=== PATIENT | female | born 1960 ===

== ENCOUNTER 2020-01-01 07:48 | Outpatient (REF) | payer OTHER, SELFPAY | END 2020-01-01 07:49 | disposition home or self-care (01) | LOC: HO.LAB 07:48 | PROVIDERS: Visit Provider Internal Medicine | DX: Z20.828 Contact with and (suspected) exposure to other viral communicable diseases (principal) | CPT/HCPCS: C9803; U0003 ==

== ENCOUNTER 2020-03-01 08:35 | Outpatient (REF) | payer OTHER, SELFPAY ==
[2020-03-01 10:10] LABS: MANUAL DIFF FLAG NO
[2020-03-01 10:25] LABS: Basophils Absolute Auto 0.1 X10*3/uL (0.0-0.2); Basophils Percent Auto 0.5 % (0-2); Eosinophils Absolute Auto 0.3 X10*3/uL (0.0-0.4); Eosinophils Percent Auto 2.8 % (0-4); Hematocrit 30.7 % (37-47); Hemoglobin 8.8 g/dl (12.0-16.0); Imm Gran Abs Auto 0.06 X10*3/uL (0.00-0.03); Imm Gran Pct Auto 0.6 % (0.0-0.4); Lymphocytes Absolute Auto 1.6 X10*3/uL (1.2-4.9); Lymphocytes Percent Auto 15.2 % (20-40); Mean Corpuscular HGB Conc 28.7 g/dl (31.0-35.0); Mean Corpuscular Hemoglobin 22.9 pg (27.0-33.0); Mean Corpuscular Volume 79.9 fL (80-98); Monocytes Absolute Auto 0.8 X10*3/uL (0.1-1.2); Monocytes Percent Auto 7.8 % (2-11); Neutrophils Absolute Auto 7.7 X10*3/uL (2.0-8.3); Neutrophils Percent Auto 73.1 % (45-73); Platelet Count 394 X10*3/uL (160-400); Red Blood Count 3.84 X10*6/uL (4.20-5.50); Red Cell Distribution Width 20.9 % (11.0-16.0); White Blood Count 10.6 X10*3/uL (4.8-10.8)
[2020-03-01 10:55] LABS: Creatinine Urine 153.29 mg/dL; Microalbum/Creatinine Ratio Ur 7.8 ug/mg cr
[2020-03-01 11:05] LABS: Alanine Aminotransferase 11 U/L (0-31); Albumin Level 3.8 g/dL (3.5-5.0); Alkaline Phosphatase 76 U/L (39-117); Anion Gap 12 (12-20); Aspartate Amino Transferase 9 U/L (5-31); Bilirubin Total 0.4 mg/dL (0.0-1.0); Blood Urea Nitrogen 12 mg/dL (9-16); Calcium 8.9 mg/dL (8.4-10.2); Carbon Dioxide 28 mmol/L (22-29); Chloride 108 mmol/L (96-108); Cholesterol 181 mg/dL; Estimated Glomerular Filt Rate > 60; Glucose Fasting 98 mg/dL (60-99); HDL Cholesterol 58 mg/dL; Iron 18 mcg/dL (30-160); LDL Cholesterol Calculated 105 mg/dl; Percent Iron Saturation 6 % (15-50); Potassium 4.1 mmol/l (3.3-5.1); Sodium 144 mmol/L (135-145); Total Iron Binding Capacity 323 mcg/dL (228-428); Total Protein 6.5 g/dL (6.5-8.0); Triglycerides 90 mg/dL; Unsaturated Iron Binding 305 ug/dL
[2020-03-01 11:06] LABS: Vitamin B12 508 pg/mL (200-900)
[2020-03-01 11:30] LABS: Rheumatoid Factor 985.3 IU/mL (<15.0)
[2020-03-01 11:34] LABS: Erythrocyte Sedimentation Rate 44 MM/HR (0-20)
== END 2020-03-01 08:36 | disposition home or self-care (01) ==
LOC: HO.LAB 08:35
PROVIDERS: PCP Internal Medicine; Visit Provider Internal Medicine
DX: D50.9 Iron deficiency anemia, unspecified (principal); E11.9 Type 2 diabetes mellitus without complications; E78.5 Hyperlipidemia, unspecified; I10 Essential (primary) hypertension; M06.9 Rheumatoid arthritis, unspecified; M47.22 Other spondylosis with radiculopathy, cervical region; E53.8 Deficiency of other specified B group vitamins
CPT/HCPCS: 36415; 80053; 80061; 82043; 82607; 83540; 85025; 85652; 86431

== ENCOUNTER 2020-04-20 08:24 | Outpatient (REF) | payer OTHER, SELFPAY ==
--- NOTE | ~2020-04-20 | MM_ITS ---
EXAMINATION: MM SCREENING DIGITAL BREAST TOMOSYNTHESIS, BILATERAL CLINICAL INFORMATION: Screening. Asymptomatic. The lifetime risk of breast cancer based on the Tyrer-Cuzick Model is 11%. COMPARISON: Mammography: 04/15/2019, 04/09/2018, 03/21/2019 TECHNIQUE: Digital breast tomosynthesis is performed in both the craniocaudal and mediolateral oblique views along with computer-aided detection (CAD). Synthesized 2D images are generated from the tomosynthesis. FINDINGS: There are scattered areas of fibroglandular density (ACR BI-RADS breast composition Category b). There are no significant masses, abnormal calcifications, or other abnormalities. There are some fine dermal calcifications and/or deodorant artifact high bilateral axilla on MLO view. The skin contours are smooth. No significant changes. MM/MM tomosynthesis screening BI IMPRESSION: No mammographic evidence of malignancy. ASSESSMENT: BI-RADS 2: Benign RECOMMENDATION: Routine annual mammography screening. This patient's information was entered into a reminder system with a target due date for their next mammogram.
== END 2020-04-20 08:25 | disposition home or self-care (01) ==
LOC: HO.MAMMO 08:24
PROVIDERS: PCP Internal Medicine; Visit Provider Internal Medicine
DX: Z12.31 Encounter for screening mammogram for malignant neoplasm of breast (principal)
CPT/HCPCS: 77063; 77067

== ENCOUNTER 2020-05-17 11:58 | Outpatient (REF) | payer OTHER, SELFPAY | END 2020-05-17 11:59 | disposition home or self-care (01) | LOC: HO.LAB 11:58 | PROVIDERS: Visit Provider Internal Medicine | DX: Z20.822 Contact with and (suspected) exposure to COVID-19 (principal) | CPT/HCPCS: 36415; C9803; U0003; U0005 ==

== ENCOUNTER 2020-05-28 07:43 | Outpatient (REF) | payer OTHER, SELFPAY ==
[2020-05-28 08:09] LABS: MANUAL DIFF FLAG NO
[2020-05-28 08:25] LABS: Basophils Percent Auto 0.2 % (0-2); Eosinophils Percent Auto 0.2 % (0-4); Hematocrit 30.6 % (37-47); Hemoglobin 8.7 g/dl (12.0-16.0); Imm Gran Abs Auto 0.28 X10*3/uL (0.00-0.03); Imm Gran Pct Auto 2.5 % (0.0-0.4); Lymphocytes Absolute Auto 1.9 X10*3/uL (1.2-4.9); Mean Corpuscular HGB Conc 28.4 g/dl (31.0-35.0); Mean Corpuscular Volume 77.3 fL (80-98); Mean Platelet Volume 9.2 fL (9.4-12.3); Monocytes Absolute Auto 0.9 X10*3/uL (0.1-1.2); Monocytes Percent Auto 7.6 % (2-11); Neutrophils Absolute Auto 8.2 X10*3/uL (2.0-8.3); Neutrophils Percent Auto 72.5 % (45-73); Platelet Count 630 X10*3/uL (160-400); Red Blood Count 3.96 X10*6/uL (4.20-5.50); Red Cell Distribution Width 22.5 % (11.0-16.0); White Blood Count 11.3 X10*3/uL (4.8-10.8)
[2020-05-28 08:39] LABS: Alanine Aminotransferase 13 U/L (0-31); Albumin Level 3.6 g/dL (3.5-5.0); Alkaline Phosphatase 54 U/L (39-117); Anion Gap 12 (12-20); Aspartate Amino Transferase 10 U/L (5-31); Bilirubin Total 0.6 mg/dL (0.0-1.0); Blood Urea Nitrogen 12 mg/dL (9-16); Calcium 8.9 mg/dL (8.4-10.2); Carbon Dioxide 30 mmol/L (22-29); Chloride 106 mmol/L (96-108); Cholesterol 215 mg/dL; Estimated Glomerular Filt Rate > 60; Glucose Fasting 110 mg/dL (60-99); HDL Cholesterol 58 mg/dL; Iron 18 mcg/dL (30-160); LDL Cholesterol Calculated 124 mg/dl; Percent Iron Saturation 7 % (15-50); Potassium 3.7 mmol/L (3.3-5.1); Sodium 144 mmol/L (135-145); Total Iron Binding Capacity 248 mcg/dL (228-428); Total Protein 6.4 g/dL (6.5-8.0); Triglycerides 168 mg/dL; Unsaturated Iron Binding 230 ug/dL
[2020-05-28 08:58] LABS: TSH reflex Free T4 1.03 uIU/mL (0.32-4.0); Vitamin D 25-OH Total 24.1 ng/mL (>30)
[2020-05-28 09:09] LABS: Erythrocyte Sedimentation Rate 26 MM/HR (0-20)
[2020-05-28 09:24] LABS: Glucose Urine UA NEG (NEG); Leukocyte Esterase Urine NEG (NEG); Nitrite Urine NEG (NEG); Specific Gravity - Urine 1.025 (1.005-1.025); Urine Blood NEG (NEG); Urine Ketones 5 MG/DL (NEG); Urine Protein TRACE MG/DL (NEG-TRACE)
[2020-05-28 09:27] LABS: Vitamin B12 726 pg/mL (200-900)
[2020-05-28 09:29] LABS: Appearance Urine HAZY; Color Urine YELLOW
[2020-05-28 10:22] LABS: Creatinine Urine 401.47 mg/dL; Microalbum/Creatinine Ratio Ur 8.4 ug/mg cr
== END 2020-05-28 07:44 | disposition home or self-care (01) ==
LOC: HO.LAB 07:43
PROVIDERS: PCP Internal Medicine; Visit Provider Internal Medicine
DX: E11.40 Type 2 diabetes mellitus with diabetic neuropathy, unspecified (principal); I10 Essential (primary) hypertension; E55.9 Vitamin D deficiency, unspecified; E53.8 Deficiency of other specified B group vitamins; G62.9 Polyneuropathy, unspecified; E78.00 Pure hypercholesterolemia, unspecified; E66.9 Obesity, unspecified; D50.9 Iron deficiency anemia, unspecified; M05.79 Rheumatoid arthritis with rheumatoid factor of multiple sites without organ or systems involvement; D50.8 Other iron deficiency anemias
CPT/HCPCS: 36415; 80053; 80061; 81003; 82043; 82306; 82607; 82746; 83540; 84443; 85025; 85652

== ENCOUNTER → 2020-08-03 12:33 | Outpatient (BNV) | payer OTHER, SELFPAY | PROVIDERS: PCP Internal Medicine; Referring Provider Internal Medicine; Visit Provider Internal Medicine Medical Oncology | DX: D50.9 Iron deficiency anemia, unspecified (principal) | CPT/HCPCS: 99203; 99213; 99214 ==

== ENCOUNTER 2020-10-06 07:39 | Outpatient (REF) | payer OTHER, SELFPAY ==
[2020-10-06 07:55] LABS: MANUAL DIFF FLAG NO
[2020-10-06 08:00] LABS: Basophils Percent Auto 0.3 % (0-2); Eosinophils Percent Auto 0.3 % (0-4); Hematocrit 30.1 % (37-47); Hemoglobin 8.6 g/dl (12.0-16.0); Imm Gran Abs Auto 0.14 X10*3/uL (0.00-0.03); Imm Gran Pct Auto 1.4 % (0.0-0.4); Lymphocytes Absolute Auto 1.2 X10*3/uL (1.2-4.9); Lymphocytes Percent Auto 11.8 % (20-40); Mean Corpuscular HGB Conc 28.6 g/dl (31.0-35.0); Mean Corpuscular Hemoglobin 21.3 pg (27.0-33.0); Mean Corpuscular Volume 74.5 fL (80-98); Mean Platelet Volume 9.3 fL (9.4-12.3); Monocytes Absolute Auto 0.5 X10*3/uL (0.1-1.2); Monocytes Percent Auto 4.6 % (2-11); NRBC Pct Auto 0.2 /100WBC (0.0-0.2); Neutrophils Percent Auto 81.6 % (45-73); Platelet Count 420 X10*3/uL (160-400); Red Blood Count 4.04 X10*6/uL (4.20-5.50); Red Cell Distribution Width 20.8 % (11.0-16.0); White Blood Count 9.8 X10*3/uL (4.8-10.8)
[2020-10-06 08:05] LABS: INTERNATIONAL NORM RATIO 0.9 (0.9-1.1); Prothrombin Time 10.2 SEC (9.9-13.0)
[2020-10-06 08:07] LABS: Partial Thromboplastin Time 29.9 SEC (24.1-38.0)
[2020-10-06 08:41] LABS: Erythrocyte Sedimentation Rate 38 MM/HR (0-20)
[2020-10-06 09:08] LABS: Alanine Aminotransferase 9 U/L (0-31); Albumin Level 3.8 g/dL (3.5-5.0); Alkaline Phosphatase 79 U/L (39-117); Anion Gap 13 (12-20); Aspartate Amino Transferase 9 U/L (5-31); Bilirubin Total 0.6 mg/dL (0.0-1.0); Blood Urea Nitrogen 8 mg/dL (9-16); Calcium 9.3 mg/dL (8.4-10.2); Carbon Dioxide 28 mmol/L (22-29); Chloride 106 mmol/L (96-108); Estimated Glomerular Filt Rate > 60; Glucose Random 141 mg/dL (60-115); Potassium 4.3 mmol/L (3.3-5.1); Sodium 143 mmol/L (135-145); Total Protein 6.8 g/dL (6.5-8.0)
[2020-10-12 21:21] LABS: Cryoglobulin, Qual Negative (Negative)
== END 2020-10-06 07:40 | disposition home or self-care (01) ==
LOC: HO.LAB 07:39
PROVIDERS: PCP Internal Medicine; Visit Provider Internal Medicine
DX: R23.3 Spontaneous ecchymoses (principal)
CPT/HCPCS: 36415; 80053; 82595; 85025; 85610; 85652; 85730

== ENCOUNTER 2020-10-13 14:38 | Outpatient (REF) | payer OTHER, SELFPAY | END 2020-10-13 14:39 | disposition home or self-care (01) | LOC: HO.LAB 14:38 | PROVIDERS: Visit Provider Internal Medicine | DX: Z20.822 Contact with and (suspected) exposure to COVID-19 (principal) | CPT/HCPCS: C9803; U0003; U0005 ==

== ENCOUNTER 2020-10-20 10:30 | Emergency (ER) | payer OTHER, SELFPAY ==
--- NOTE | ~2020-10-20 | CT_ITS ---
EXAMINATION: CT HEAD WITHOUT CONTRAST CLINICAL INFORMATION: Right hand numbness COMPARISON: None TECHNIQUE: Contiguous axial imaging was performed from the skull base to vertex without intravenous administration of contrast. This CT examination was performed using dose optimization techniques as appropriate, variously including the following: *Automated exposure control *Adjustment of mA and/or kV according to patient size (this includes techniques or standardized protocols for targeted exams where dose is matched to indication/reason for exam; i.e. extremities or head) *Use of iterative reconstruction technique DLP: 641 mGy-cm FINDINGS: There is no evidence of acute intracranial hemorrhage or territorial infarction. No abnormal mass effect or midline shift is seen. Jernigan to white matter differentiation is well preserved. No extra-axial fluid collections are identified. The ventricles are normal in size. There is no abnormal attenuation within the brain parenchyma. The osseous structures and soft tissues are normal. The mastoid air cells and visualized portions of the paranasal sinuses are well aerated. CT/CT head/brain wo con IMPRESSION: No acute intracranial process seen.
[2020-10-20 10:36] VITALS: BP 173/95; PULSE 101; RESP 18; TEMP 37.3; O2SAT 99; BMI 32.1
--- NOTE | 2020-10-20 11:07 | ED.EXTPRO ---
HPI - Extremity Problem General Chief complaint: Extremity Problem Stated complaint: rt arm numbness Time Seen by Provider: 10/20/20 11:07 Source: patient Mode of arrival: ambulatory Limitations: no limitations History of Present Illness HPI Narrative: 6-year-old female with a past medical history of cervical spondylosis with radiculopathy and severe rheumatoid arthritis with right hand wrist fusion presents for right hand numbness and weakness and right arm pain that started at 4:30 a.m. this morning Patient reports her middle finger, 3rd finger, and some, are numb. Reports she has pain in her right arm especially under her right armpit. No neck pain. No nausea, no blurry vision, no weakness, no gait disturbance. She did not take her blood pressure meds today. Reports her blood pressure has been running high this week, SBP's 170's at home. Complaint: extremity pain Onset (ago): hour(s) (7) Pain Consistency: constant Location: right Severity scale (1-10): 6 Relieving factors: nothing Exacerbating factors: nothing Associated symptoms: denies other symptoms Related Data Home Medications Medication Instructions Recorded Confirmed albuterol sulfate 2.5 mg INHALATION Q4-6H PRN 11/27/19 10/07/20 folic acid 1 mg tablet 1 mg PO DAILY 11/27/19 10/07/20 methotrexate sodium 2.5 mg tablet 2.5 mg PO QWEEK 11/27/19 10/07/20 omeprazole 20 mg capsule,delayed 20 mg PO DAILY 11/27/19 10/07/20 release prednisone 5 mg tablet 5 mg PO DAILY 11/27/19 10/07/20 upadacitinib 15 mg tablet,extended 15 mg PO DAILY 11/27/19 10/07/20 release 24 hr (Rinvoq) Previous Rx's Medication Instructions Recorded ergocalciferol (vitamin D2) 1,250 1,250 mcg PO QWEEK 30 Days #5 cap 01/06/20 mcg (50,000 unit) capsule lisinopril 2.5 mg tablet 2.5 mg PO DAILY 90 Days #90 tab 03/02/20 blood sugar diagnostic (FreeStyle 1 strip MISCELLANEOUS TID #100 04/28/20 Test) strip albuterol sulfate 90 mcg/actuation 2 puff INHALATION Q6H PRN #8.5 g 06/15/20 aerosol inhaler (ProAir HFA) ezetimibe 10 mg tablet 10 mg PO DAILY #30 tab 07/14/20 hydrochlorothiazide 25 mg tablet 25 mg PO DAILY #30 tab 07/14/20 rosuvastatin 20 mg tablet 20 mg PO DAILY #30 tab 08/14/20 gabapentin 300 mg capsule 300 mg PO BEDTIME 30 Days #30 cap 08/18/20 cyanocobalamin (vitamin B-12) 1,000 mcg IM Q4W #3 vial 08/31/20 1,000 mcg/mL injection solution metformin 1,000 mg tablet 1,000 mg PO BID #60 tab 09/02/20 oxycodone 30 mg tablet 30 mg PO Q6H PRN 28 Days #112 tab 09/24/20 zolpidem 10 mg tablet 10 mg PO BEDTIME PRN 30 Days #30 09/30/20 tab prednisone 20 mg tablet 40 mg PO DAILY 5 Days #10 tab 10/20/20 Allergies Allergy/AdvReac Type Severity Reaction Status Date / Time IVP DYE Allergy Unknown unknown Verified 10/07/20 09:04 Review of Systems Constitutional: Constitutional: Denies chills, Denies fever(s), Reports headache(s) (mild) and Denies weakness Eyes: Eyes: Denies blurry vision, Denies diplopia, Denies loss of peripheral vision, Denies loss of vision and Denies other visual disturbances ENT: Denies vertigo, Denies dizziness, Denies otalgia, Reports headache(s) (mild), Reports mouth pain, Denies neck pain, Reports sinus pain and Denies sore throat Cardiovascular: Cardiovascular: Denies chest pain, Denies leg edema, Denies palpitations and Denies dyspnea Respiratory: Respiratory: Denies chest congestion, Denies cough and Denies dyspnea Gastrointestinal: Gastrointestinal: Denies abdominal pain, Denies hematochezia, Denies constipation, Denies diarrhea and Denies vomiting Musculoskeletal: Musculoskeletal: Denies neck pain and Reports numbness Comments: Right arm pain, pain in right axilla Integumentary/Breasts: Skin/Breast: Reports system reviewed and no additional complaints, except as docu Neurologic: Denies Abnormal speech present, Denies confusion, Denies vertigo, Denies dizziness, Reports headache(s) (mild), Denies focal weakness, Denies loss of vision, Reports numbness, Reports Sensory deficit (Neuro) and Denies weakness Psychiatric: Psychiatric: Denies anxiety, Denies confusion and Denies depression Endocrine: Endocrine: Denies palpitations PMFSH Past Medical History Medical History Abnormal bruising Anxiety Asthma Cervical spondylosis with radiculopathy Diabetes mellitus GERD (gastroesophageal reflux disease) Hyperlipidemia Hypertension, essential, benign Insomnia Iron deficiency anemia, unspecified Neuropathy Obesity (BMI 30-39.9) Rheumatoid arthritis Ureterolithiasis Varicose veins of bilateral lower extremities with pain Vitamin B12 deficiency Vitamin D deficiency Surgical History History of arthroplasty of left ankle History of arthroplasty of right ankle History of arthroplasty of right knee (~2008) History of surgery on left wrist History of surgery on right wrist S/P VANESSA-BSO (total abdominal hysterectomy and bilateral salpingo-oophorectomy) Family History Family History Father Chronic mental illness Mother Diabetes Stroke Hypertension Social History Social History Housing: Apartment Alcohol intake: former Patient Tobacco Use Status: Former Tobacco user Quit Date: 2014 Second Hand Smoke Exposure: Yes Use of substances other than those prescribed or required for medical reasons: No Advance Directives: No Advance Directives Information Provided: Yes service: No Current occupational status: disabled Physical Exam Vital Signs: Vital Signs: Last Vital Signs Temp 99.2 F 10/20/20 10:36 Pulse 85 10/20/20 13:47 Resp 18 10/20/20 12:54 BP 184/89 H 10/20/20 13:47 Pulse Ox 95 10/20/20 12:54 Body Mass Index 32.1 Const: General: no acute distress, alert and awake; No confusion Nutritional Appearance: obese centrally obese Orientation/consciousness: patient oriented x3 and No confusion Limitations: no limitations HENMT: Ears: hearing grossly normal bilaterally General nose exam: Normal external nose present Face and sinus: Yes normal facial exam Mouth: Normal oral and palatal mucosa present Teeth and gingiva: edentulous Throat: Yes posterior oropharynx normal Eyes: Pupils: Equal, round and reactive pupils present EOM: EOMs intact bilaterally and No Nystagmus present Neck: Neck: Yes normal visual inspection, Yes full ROM, Yes no meningeal signs, Yes trachea midline and Yes supple Resp: Effort & Inspection: normal respiratory effort Auscultation: clear to auscultation bilaterally, no crackles, no rales, no rhonchi and no wheezes Cardio: Rate: regular rate Rhythm: regular rhythm Heart sounds: S1 normal heart sound present and S2 normal heart sound present : General: Yes no CVA tenderness Back/Spine/Pelvis: Back: no CVA tenderness Cervical Spine: normal cervical lordosis, cervical ROM normal, cervical muscular tenderness (left side) and No Cervical spine tenderness Thoracic/Lumbar Spine: thoracic and lumbar spine normal to inspection, No thoracic spinal tenderness and No lumbar spinal tenderness Skin: General skin exam: no rashes or lesions noted Neuro: Other: Patient has reduced sample distributor strength and right hands, has reduced sensation to light touch on the palmar aspect of right hand General: patient oriented x3, no meningeal signs and No confusion Cranial nerves: Yes CN's II-XII intact bilaterally, Yes Facial sensation intact/muscles of mastication intact, Yes Equal, round and reactive pupils present, Yes Bilaterally intact EOM present, Yes Normal facial strength present, Yes Midline tongue present, Yes Ability to bilaterally rotate head present, Yes Ability to bilaterally elevate shoulders present and No Nystagmus present Cognition (Neuro): normal cognition Speech: No Abnormal speech present Gait exam (Neuro): Normal gait present Motor exam (neuro): Pronator motor function not present Sensory Exam: Sensory deficit (Neuro) Deep tendon reflexes (DTR's): Right patellar reflex intensity grade: 1+ and Left patellar reflex intensity grade: 1+ Coordination: [id number] test normal Romberg Test: Negative Psych: Appearance: grossly normal Mental Status: mental status grossly normal Speech and movement: Normal speech and movement present Affect: normal affect Attitude: cooperative Thought process: Normal thought process present Course Course Course Narrative: 60-year-old female presents for right arm pain and right hand numbness. Patient has an elevated blood pressure of 173/93, she has not taken her blood pressure medication today. On exam, patient has reduced sample distributor strength in her right hand, right hand is deformed from surgeries due to her rheumatoid arthritis, patient is tender when I palpate under right armpit. No cervical spine tenderness, full range of motion of neck. Patient is otherwise neurologically intact, her gait is at her baseline. Head CT is negative for stroke. Ordered MRI of neck, was told by radiologist that this is not able to be completed today. Discussed with Dr. Schroeder, neurology, if she needed CT angiogram of head or neck. He did not think this was a stroke as she was presenting with pain as well as numbness and no other focal deficits. Discussed with patient she should follow-up with her PCP for outpatient MRI of her neck. Counseled patient that we would increase her prednisone and sent her home on ketorolac Discharge Plan Discharge Clinical Impression: Cervical radicular pain Hypertension Qualifiers: Hypertension type: primary hypertension Qualified Code(s): I10 - Essential (primary) hypertension Patient Disposition: Home, Self-Care Instructions: Cervical Radiculopathy (ED) Additional Instructions: Please fill your prescription for prednisone and take the additional 40 mg of prednisone starting tomorrow. Please call your primary care provider for a follow-up appointment I would like you to be seen next week. You need an outpatient MRI of your neck. Your blood pressure was high in the emergency room today. Please follow-up with your primary care provider as they might want to increase your dose of your high blood pressure medication. Please return to the emergency room if you have headaches, weakness, blurry vision, worseing pain, or any other new or concerning symptoms. Prescriptions: New prednisone 20 mg tablet 40 mg PO DAILY 5 Days Qty: 10 RF: 0 No Action ergocalciferol (vitamin D2) 1,250 mcg (50,000 unit) capsule 1,250 mcg PO QWEEK 30 Days Qty: 5 RF: 12 blood sugar diagnostic [FreeStyle Test] Strip 1 strip miscellaneous TID Qty: 100 RF: 3 albuterol sulfate [ProAir HFA] 90 mcg/actuation HFA aerosol inhaler 2 puff inhalation Q6H PRN (Reason: bronchospasm) Qty: 8.5 RF: 2 hydrochlorothiazide 25 mg tablet 25 mg PO DAILY Qty: 30 RF: 3 ezetimibe 10 mg tablet 10 mg PO DAILY Qty: 30 RF: 3 rosuvastatin 20 mg tablet 20 mg PO DAILY Qty: 30 RF: 2 gabapentin 300 mg capsule 300 mg PO BEDTIME 30 Days Qty: 30 RF: 0 cyanocobalamin (vitamin B-12) 1,000 mcg/mL solution 1,000 mcg IM Q4W Qty: 3 RF: 2 metformin 1,000 mg tablet 1,000 mg PO BID Qty: 60 RF: 2 oxycodone 30 mg tablet 30 mg PO Q6H PRN (Reason: pain) 28 Days Qty: 112 RF: 0 zolpidem 10 mg tablet 10 mg PO BEDTIME PRN (Reason: insomnia) 30 Days Qty: 30 RF: 1 albuterol sulfate 2.5 mg /3 mL (0.083 %) solution for nebulization 2.5 mg inhalation Q4-6H PRN (Reason: Wheezing) RF: 0 prednisone 5 mg tablet 5 mg PO DAILY RF: 0 folic acid 1 mg tablet 1 mg PO DAILY RF: 0 omeprazole 20 mg capsule,delayed release(DR/EC) 20 mg PO DAILY RF: 0 Rinvoq 15 mg tablet extended release 24 hr 15 mg PO DAILY RF: 0 methotrexate sodium 2.5 mg tablet 2.5 mg PO QWEEK RF: 0 lisinopril 2.5 mg tablet 2.5 mg PO DAILY 90 Days Qty: 90 RF: 3
[2020-10-20 12:54] VITALS: BP 190/84; PULSE 88; RESP 18; O2SAT 95
[2020-10-20] MEDS: Ketorolac Tromethamine 15 MG/ML VIAL IM (13:15)
[2020-10-20] MEDS: lisinopriL 2.5 MG TABLET PO (13:15)
[2020-10-20] MEDS: predniSONE 20 MG TABLET 60 MG PO (13:15)
[2020-10-20 13:47] VITALS: BP 184/89; PULSE 85
== END 2020-10-20 13:54 | disposition home or self-care (01) ==
PROVIDERS: Emergency Provider Emergency Medicine; PCP Internal Medicine
DX: M54.2 Cervicalgia (principal); I10 Essential (primary) hypertension; Z79.899 Other long term (current) drug therapy; Z87.891 Personal history of nicotine dependence
CPT/HCPCS: 70450; 96372; 99284; 99285; J1885

== ENCOUNTER → 2020-10-26 12:31 | Outpatient (BNVA) | payer OTHER, SELFPAY | PROVIDERS: PCP Internal Medicine; Referring Provider Internal Medicine; Visit Provider Internal Medicine | DX: E11.8 Type 2 diabetes mellitus with unspecified complications (principal); I10 Essential (primary) hypertension; R00.2 Palpitations | CPT/HCPCS: 93005; 99202 ==

== ENCOUNTER → 2020-11-17 08:07 | Outpatient (BNVA) | payer OTHER, SELFPAY | PROVIDERS: Referring Provider Internal Medicine; Visit Provider Physician Assistant ==

== ENCOUNTER 2020-11-25 07:59 | Outpatient (REF) | payer OTHER, SELFPAY | END 2020-11-25 08:00 | disposition home or self-care (01) | LOC: HO.MDS 07:59 | PROVIDERS: PCP Internal Medicine; Visit Provider Internal Medicine Medical Oncology | DX: D50.9 Iron deficiency anemia, unspecified (principal) | CPT/HCPCS: 96365; 96366; J1200; J1750; Q0163 ==

== ENCOUNTER 2020-11-29 07:17 | Outpatient (REF) | payer OTHER, SELFPAY ==
--- NOTE | ~2020-11-29 | XR_ITS ---
EXAMINATION: XR ANKLE, RIGHT CLINICAL INFORMATION: XR ankle, right. COMPARISON: Right foot radiographs dated 08/24/2010. TECHNIQUE: AP, lateral, and mortise views of the right ankle. FINDINGS: No acute fracture or dislocation. Talar orthopedic screws. No hardware fracture. No perihardware lucency to suggest loosening or infection. Joint space narrowing with marginal osteophytes at the subtalar joints as well as at the talonavicular and cuneonavicular joints. Dystrophic ossification along the plantar surface of the foot, increased when compared to the prior radiographs. Plantar and dorsal calcaneal enthesophytes. Atherosclerotic calcifications. XR/XR ankle RT min 3V IMPRESSION: No acute fracture or dislocation. Talar ORIF without evidence of hardware complication. Degenerative arthritis within the subtalar joints and midfoot, slightly progressed when compared to the prior examination. Dystrophic ossification along the plantar surface of the foot has increased.
== END 2020-11-29 07:18 | disposition home or self-care (01) ==
LOC: HO.HOSX 07:17
PROVIDERS: Visit Provider Physician Assistant
DX: R20.0 Anesthesia of skin (principal); R20.2 Paresthesia of skin; M25.579 Pain in unspecified ankle and joints of unspecified foot; E11.8 Type 2 diabetes mellitus with unspecified complications
CPT/HCPCS: 73610; 99202

== ENCOUNTER → 2020-12-01 08:22 | Outpatient (REF) | payer OTHER, SELFPAY ==
--- NOTE | 2020-12-01 08:26 | HM_ITS ---
Conclusion: 1. Patient was monitored for total period of 3 days 2. Baseline rhythm is normal sinus rhythm with average heart rate of 92 beats per minute 3. Frequent sinus tachycardia noted, 30.4% of time heart rate about 100 beats per minute 4. No bradycardia or pauses noted 5. Total of 17,355 PACs noted accounting for total burden of 4.35% a cardiac for frequent PACs 6. Six episode of supraventricular runs, longest 4 beats 7. No patient reported events MTDD
--- NOTE | 2020-12-01 08:26 | CA_ITS ---
Transthoracic Echocardiogram Patient (Last, First, Middle): Isela Frausto M Gender: Female Date of : 1960 Age: 60 Procedure Date: 12/01/2020 Procedure Type: Transthoracic Echocardiogram Location: OP Height: 157.48 cm Weight: 79.38 kg BSA: 1.81 m2 Heart Rate: bpm BP: 155 / 70 mmHg Rn Pacu: YR/CP Referring MD: Quentin Ray MD Symptoms: R00.2 - Palpitations Study Quality: Good ECG Rhythm: Sinus Conclusions: - The left ventricular systolic function is normal. The calculated ejection fraction is 61% by biplane method. - The basal inferior segment is hypokinetic. - There is mild calcification of the aortic valve. - There is mild mitral valve regurgitation. Findings Left Ventricle Normal left ventricular cavity size. There is normal left ventricular wall thickness. The left ventricular systolic function is normal. The calculated ejection fraction is 61% by biplane method. Diastolic function is normal for age. Wall Motion Rest Echo Findings The basal inferior segment is hypokinetic. Right Ventricle Normal right ventricular cavity size and systolic function. Atria Both atria are normal in size. Aortic Valve There is a normal trileaflet aortic valve. There is mild calcification of the aortic valve. There is no aortic valve stenosis. There is no aortic valve regurgitation. Mitral Valve The mitral valve appears normal. There is mild mitral valve regurgitation. There is no mitral valve stenosis. Pulmonic Valve The pulmonic valve was not well visualized. Tricuspid Valve Normal tricuspid valve structure. There is trace tricuspid valve regurgitation. The pulmonary artery systolic pressure is normal. Great Vessels The aortic annulus, sinuses of valsalva, and asc aorta are normal in size. Venous The inferior vena cava is normal in size and collapses greater than 50% with inspiration. Pericardium/Pleural There is no evidence of pericardial effusion. Prior Study Comparison Changes noted compared to prior study dated: 04/20/2015. See comments on wall motion. Measurements 2D Linear Measurements IVSd: 0.91 0.6-0.9/0.6-1.0 cm LVIDd: 4.82 3.9-5.3/4.2-5.9 cm LVIDd Index: 2.66 2.4-3.2/2.2-3.1 cm/m2 LVIDs: 3.05 2.0-3.6 cm LVPWd: 0.90 0.7-1.1 cm Ao Root: 3.30 2.1-3.5 cm LA Diam: 3.60 2.7-3.8/3.0-4.0 cm LAIDs Index: 1.99 1.5-2.3 cm/m2 LV Mass: 186.63 67-162/88-224 g LV Mass Index: 103.11 43-95/49-115 g/m2 LVOT Diam: 2.00 3.0+(-)1.3 cm 2D Systolic Function EF 4C: 60.10 >55% EF 2C: 63.70 >55% EF BiP: 61.00 >55% Mitral Valve MV Pk E: 1.12 MV PK A: 1.36 MV Decel Time: 280.00 E/A: 0.80 E'Lateral: 8.81 E'Medial: 8.27 E/E' Med: 13.50 E/E' Lat: 12.70 PHT: 82.00 MVA PHT: 2.68 Decel Dimmit: 4.00 Aortic Valve AoV Pk Brian: 2.08 AoV Mn Brian: 1.32 AoV VTI: 0.42 AoV Pk Grad: 17.00 Aov Mn Grad: 8.00 LUCIA Cont.VTI: 1.75 LVOT LVOT Pk Brian: 0.99 LVOT Mn Brian: 0.65 LVOT VTI: 0.24 LVOT Pk Grad: 4.00 LVOT Mn Grad: 2.00 LVOT Diam: 2.00 LVOT Area: 3.14 Diastolic Function MV Pk E: 1.12 MV Pk A: 1.36 E/A: 0.80 E'Medial: 8.27 E/E' Med: 13.50 E' Laterial: 8.81 E/E' Lat: 12.70 Right Ventricle TAPSE (mm): 2.20 TVS' Brian: 13.40 Tricuspid Valve TR Pk Brian: 1.70 TR Pk Grad: 12.00 RA Press: 3.00 RVSP: 15.00 Great Vessels Aorta Ao Root-2D: 3.30 2.0-3.7 cm Ao Asc: 3.50 2.1-3.4 cm Ao Arch: 2.80 Updated in Other Vendor System with Status of Final Quentin Ray MD electronically signed on 12/01/2020 12:58:20 PM with status of Final
== END ==
LOC: HO.CARD 08:22
PROVIDERS: Visit Provider Internal Medicine
DX: R00.2 Palpitations (principal)
CPT/HCPCS: 93242; 93306

== ENCOUNTER 2020-12-27 08:28 | Outpatient (REF) | payer OTHER, SELFPAY ==
[2020-12-27 08:43] LABS: MANUAL DIFF FLAG NO
[2020-12-27 09:09] LABS: Basophils Percent Auto 0.2 % (0-2); Eosinophils Absolute Auto 0.1 X10*3/uL (0.0-0.4); Eosinophils Percent Auto 0.9 % (0-4); Hematocrit 35.6 % (37.0-47.0); Hemoglobin 10.8 g/dl (12.0-16.0); Imm Gran Abs Auto 0.29 X10*3/uL (0.00-0.03); Imm Gran Pct Auto 2.3 % (0.0-0.4); Lymphocytes Absolute Auto 2.1 X10*3/uL (1.2-4.9); Lymphocytes Percent Auto 16.2 % (20-40); Mean Corpuscular HGB Conc 30.3 g/dl (31.0-35.0); Mean Corpuscular Hemoglobin 24.8 pg (27.0-33.0); Mean Corpuscular Volume 81.7 fL (80.0-98.0); Mean Platelet Volume 10.1 fL (9.4-12.3); Monocytes Absolute Auto 0.8 X10*3/uL (0.1-1.2); Monocytes Percent Auto 6.5 % (2-11); Neutrophils Absolute Auto 9.39 x10*3/uL (2.0-8.3); Neutrophils Percent Auto 73.9 % (45-73); Platelet Count 353 X10*3/uL (160-400); Red Blood Count 4.36 X10*6/uL (4.20-5.50); Red Cell Distribution Width 28.9 % (11.0-16.0); White Blood Count 12.7 X10*3/uL (4.8-10.8)
[2020-12-27 09:19] LABS: Estimated Average Glucose 114 mg/dL; Hemoglobin A1c % 5.6 %
[2020-12-27 09:40] LABS: Alanine Aminotransferase 9 U/L (0-31); Albumin Level 3.8 g/dL (3.5-5.0); Alkaline Phosphatase 58 U/L (39-117); Anion Gap 12 (12-20); Aspartate Amino Transferase 9 U/L (5-31); Bilirubin Total 0.4 mg/dL (0.0-1.0); Blood Urea Nitrogen 15 mg/dL (9-16); Calcium 9.4 mg/dL (8.4-10.2); Carbon Dioxide 30 mmol/L (22-29); Chloride 109 mmol/L (96-108); Cholesterol 219 mg/dL; Estimated Glomerular Filt Rate > 60; Glucose Fasting 98 mg/dL (60-99); HDL Cholesterol 50 mg/dL; LDL Cholesterol Calculated 133 mg/dl; Potassium 3.8 mmol/L (3.3-5.1); Sodium 147 mmol/L (135-145); Total Protein 6.3 g/dL (6.5-8.0); Triglycerides 184 mg/dL
[2020-12-27 09:59] LABS: Rheumatoid Factor 1062.7 IU/mL (<15.0)
[2020-12-27 10:12] LABS: Erythrocyte Sedimentation Rate 18 MM/HR (0-20)
[2020-12-27 10:28] LABS: Folate 7.5 ng/mL (> or = 4.0); Vitamin B12 696 pg/mL (200-900)
[2020-12-27 10:49] LABS: Appearance Urine HAZY; Color Urine YELLOW; Glucose Urine UA NEG (NEG); Leukocyte Esterase Urine 1+ (NEG); Nitrite Urine NEG (NEG); Specific Gravity - Urine 1.025 (1.005-1.025); UACC Culture Trigger YES; Urine Blood NEG (NEG); Urine Ketones 5 MG/DL (NEG); Urine Protein TRACE MG/DL (NEG-TRACE)
[2020-12-27 11:07] LABS: Squamous Epithelial Cell Urine 3+ /LPF
[2020-12-27 11:08] LABS: Bacteria Urine 1+ /LPF; Calcium Oxalate Crystals Urine 1+ /LPF; Mucus Urine 1+ /LPF; RBC Urine 0 /HPF (0)
[2020-12-27 11:21] LABS: Creatinine Urine 297.18 mg/dL; Microalbum/Creatinine Ratio Ur 11.4 ug/mg cr
== END 2020-12-27 08:29 | disposition home or self-care (01) ==
LOC: HO.LAB 08:28
PROVIDERS: PCP Internal Medicine; Visit Provider Internal Medicine
DX: E78.00 Pure hypercholesterolemia, unspecified (principal); E53.8 Deficiency of other specified B group vitamins; E11.9 Type 2 diabetes mellitus without complications; M05.79 Rheumatoid arthritis with rheumatoid factor of multiple sites without organ or systems involvement; D50.8 Other iron deficiency anemias; I10 Essential (primary) hypertension
CPT/HCPCS: 36415; 80053; 80061; 81001; 82043; 82607; 82746; 83036; 84443; 85025; 85652; 86431; 87086

== ENCOUNTER → 2021-01-06 08:55 | Outpatient (REF) | payer OTHER, SELFPAY ==
--- NOTE | ~2021-01-06 | NM_ITS ---
Myocardial perfusion study Indication: Atherosclerotic heart disease to evaluate for myocardial ischemia Technique: The patient was brought in for a Lexiscan perfusion study on 01/06/2021. Patient performed low-level exercise and was injected 0.4 mg of Lexiscan intravenously. Within a minute of injection, 25 mCi of sestamibi was given intravenously. Images were obtained using the SPECT gamma camera interlaced with the gating device. Images were obtained in supine position. Resting perfusion study was performed on 01/10/2021. Patient was administered 25 mCi of sestamibi intravenously at rest. Images were then obtained in supine position. Images obtained with and without CT attenuation. Total DLP 129 mGy-cm. Images were processed with the software and compared side to side in short axis, horizontal long axis and vertical long axis views. Findings: The stress perfusion study showed nonattenuated images show mildly reduced uptake in the distal lateral, apex as well as moderately reduced uptake in the inferoapical wall of the LV myocardium. Remainder of the LV myocardium is normally perfused. Attenuation corrected images show mildly reduced uptake apex of the LV myocardium. The gated study shows normal LV systolic function with calculated LVEF of 58%. LV cavity is mildly dilated size. The gated study shows normal systolic wall thickening and contraction of segments. Resting study shows attenuation corrected images show normal uptake of radiotracer in all segments of LV myocardium. Gating at rest reveals normal systolic wall motion with ejection fraction at 70%. The findings are consistent with reversible defect on attenuation corrected imaging the apex suggestive of ischemia.. NM/NM cardiolite stress test Impression: 1. Myocardial perfusion imaging study shows apical ischemia 2. Gated LVEF is 58% with stress and 70% with rest 3. Transient ischemic dilatation present EKG is nondiagnostic for ischemia
--- NOTE | 2021-01-06 08:58 | CA_ITS ---
Acquisition Time: 2021-01-06 09:55:21 Total Exercise Time: 00:02:00 Test Indications: CAD Medications: SEE CHART Protocol: LEXISCAN Max HR: 155 BPM 96% of Pred: 160 BPM Max BP: 200/090 mmHG Max Work Load: 1.6 METS Pharmacological stress test with Lexiscan injection, while walking on treadmill, without anginal symptoms, without arrythmia, with hypertensive response to walking and injection with max BP 200/90, without EKG changes meeting criteria for ischemia. In recovery she was treated with Aminophylline 75mg IVP to reverse Lexiscan. BP improved to 160/88, asymptomatic. Nuclear images pending. Test reviewed with Dr Ray. Referred By: Quentin Ray Overread By: LEELEE MORRIS
== END ==
LOC: HO.CARD 08:55
PROVIDERS: PCP Internal Medicine; Visit Provider Internal Medicine
DX: I25.10 Atherosclerotic heart disease of native coronary artery without angina pectoris (principal)
CPT/HCPCS: 78452; 93017; A9500; J0280; J2785

== ENCOUNTER → 2021-01-12 14:38 | Outpatient (BNVA) | payer OTHER, SELFPAY | PROVIDERS: PCP Internal Medicine; Referring Provider Internal Medicine; Visit Provider Nurse Practitioner Family | DX: I10 Essential (primary) hypertension (principal); E78.00 Pure hypercholesterolemia, unspecified; E11.8 Type 2 diabetes mellitus with unspecified complications; R00.2 Palpitations; R94.39 Abnormal result of other cardiovascular function study | CPT/HCPCS: 99212 ==

== ENCOUNTER → 2021-02-01 07:55 | Outpatient (BNVA) | payer OTHER, SELFPAY | PROVIDERS: PCP Internal Medicine; Referring Provider Internal Medicine; Visit Provider Internal Medicine | DX: I25.10 Atherosclerotic heart disease of native coronary artery without angina pectoris (principal); I10 Essential (primary) hypertension; I49.8 Other specified cardiac arrhythmias; E11.8 Type 2 diabetes mellitus with unspecified complications | CPT/HCPCS: 99212 ==

== ENCOUNTER 2021-02-14 10:35 | Outpatient (REF) | payer OTHER, SELFPAY | END 2021-02-14 10:36 | disposition home or self-care (01) | LOC: HO.LAB 10:35 | PROVIDERS: Visit Provider Internal Medicine | DX: Z20.822 Contact with and (suspected) exposure to COVID-19 (principal) | CPT/HCPCS: C9803; U0003; U0005 ==

== ENCOUNTER → 2021-03-16 09:29 | Outpatient (BNVA) | payer OTHER, SELFPAY | PROVIDERS: PCP Internal Medicine; Visit Provider Surgery Vascular Surgery | DX: I73.9 Peripheral vascular disease, unspecified (principal) | CPT/HCPCS: 99212 ==

== ENCOUNTER 2021-04-05 12:56 | Outpatient (REF) | payer OTHER, SELFPAY ==
--- NOTE | ~2021-04-05 | XR_ITS ---
EXAMINATION: XR HIP, RIGHT CLINICAL INFORMATION: Right hip pain COMPARISON: 06/03/2013 TECHNIQUE: Two views of the right hip. FINDINGS: Moderate narrowing of the weightbearing joint space. Mild subchondral sclerosis in the acetabular roof. Mild osteophytes. No erosive changes. XR/XR hip RT min 2V IMPRESSION: Mild osteoarthritis right hip, slightly progressed compared to 06/03/2013.
--- NOTE | ~2021-04-05 | US_ITS ---
EXAMINATION: US NON-INVASIVE ASSESSMENT OF THE ARTERIES OF BOTH LOWER EXTREMITIES Interventional Radiologist: Sergio Gray M.D., F.S.I.R., F.A.C.R. CLINICAL INFORMATION: This is a 61-year-old female with history of hypertension, hyperlipidemia, diabetes. Peripheral arterial disease. Comparison: Comparison is made to a previous study dated 10/15/2018 TECHNIQUE: Segmental ankle pulse volume recording, pressure measurement at the ankle and ankle brachial indices were obtained of the lower extremity arterial system bilaterally. In addition, bilateral lower extremity duplex ultrasound was performed with velocity measurements and waveform analysis in the common femoral arteries, profunda femoris arteries, proximal mid and distal superficial femoral arteries, popliteal arteries and tibial vessels. This study was performed at rest only. FINDINGS: a) AT REST: 1. The ankle-brachial indices are: Right 1.17. Previously, 1.05 and left 1.07. Previously, 0.92. >0.97-1.25 = normal - no significant arterial disease. 0.75-0.96 = mild peripheral arterial disease. 0.5-0.74 = moderate peripheral arterial disease. <0.50 = severe peripheral arterial disease. 2. Segmental pressure at ankle: Within normal limits bilaterally. 3. PVR waveform at ankle: Minimally blunted bilaterally. 4. Duplex exam. Velocities in cm/sec and phasicity as well as the presence of plaque are reported below. RIGHT LEG: Scattered plaque is seen. Multiphasic flow is present throughout with the exception of the tibial vessels that showed monophasic flow. Common Femoral: 202 cm/s and triphasic. Previously, 129. Proximal SFA: 120 cm/s and triphasic. Previously, 116. Mid SFA: 92 cm/s and triphasic. Previously, 110. Distal SFA: 97 cm/s and monophasic. Previously, 84. Popliteal: 66 cm/s and monophasic. Previously, 61. Tibial: 255 cm/s and monophasic. Previously, 104. There appears to be severe disease in the posterior tibial artery. LEFT LEG: Scattered plaque is seen. Multiphasic flow present throughout. Common Femoral: 133 cm/s and triphasic. Previously, 120. Proximal SFA: 141 cm/s and triphasic. Previously, 101. Mid SFA: 145 cm/s and monophasic. Previously, 98. Distal SFA: 80 cm/s and monophasic. Previously, 99. Popliteal: 79 cm/s and monophasic. Previously, 94. Tibial: 49 cm/s and monophasic. Previously, 33. US/US arterial duplex LE BI IMPRESSION: 1. The ankle-brachial indices are within normal limits bilaterally. 2. There appears to be hemodynamically significant severe disease in the right posterior tibial artery. This appears worse when compared to the previous examination. 3. There are decreased velocities bilaterally in the calves without focal high-grade stenosis with the exception of the right posterior tibial artery.
== END 2021-04-05 12:57 | disposition home or self-care (01) ==
LOC: HO.US 12:56
PROVIDERS: PCP Internal Medicine; Visit Provider Surgery Vascular Surgery
DX: I73.9 Peripheral vascular disease, unspecified (principal)
CPT/HCPCS: 93923; 93925

== ENCOUNTER → 2021-04-14 12:47 | Outpatient (BNVA) | payer OTHER, SELFPAY | PROVIDERS: PCP Internal Medicine; Visit Provider Surgery Vascular Surgery | DX: I73.9 Peripheral vascular disease, unspecified (principal) | CPT/HCPCS: 99212 ==

== ENCOUNTER 2021-04-30 09:37 | Outpatient (REF) | payer OTHER, SELFPAY ==
[2021-04-30 10:21] LABS: MANUAL DIFF FLAG NO
[2021-04-30 11:01] LABS: Appearance Urine HAZY; Color Urine YELLOW; Glucose Urine UA NEG (NEG); Leukocyte Esterase Urine NEG (NEG); Nitrite Urine NEG (NEG); PH 5.5 (5.0-8.0); Specific Gravity - Urine >= 1.030 (1.005-1.025); Urine Blood NEG (NEG); Urine Ketones 5 MG/DL (NEG); Urine Protein TRACE MG/DL (NEG-TRACE)
[2021-04-30 11:20] LABS: Basophils Absolute Auto 0.1 X10*3/uL (0.0-0.2); Basophils Percent Auto 0.4 % (0-2); Eosinophils Absolute Auto 0.2 X10*3/uL (0.0-0.4); Eosinophils Percent Auto 1.9 % (0-4); Hemoglobin 12.7 g/dl (12.0-16.0); Imm Gran Abs Auto 0.18 X10*3/uL (0.00-0.03); Imm Gran Pct Auto 1.5 % (0.0-0.4); Lymphocytes Absolute Auto 1.9 X10*3/uL (1.2-4.9); Lymphocytes Percent Auto 15.3 % (20-40); Mean Corpuscular HGB Conc 31.8 g/dl (31.0-35.0); Mean Corpuscular Hemoglobin 29.1 pg (27.0-33.0); Mean Corpuscular Volume 91.7 fL (80.0-98.0); Mean Platelet Volume 10.8 fL (9.4-12.3); Monocytes Absolute Auto 0.9 X10*3/uL (0.1-1.2); Monocytes Percent Auto 7.4 % (2-11); Neutrophils Percent Auto 73.5 % (45-73); Platelet Count 324 X10*3/uL (160-400); Red Blood Count 4.36 X10*6/uL (4.20-5.50); Red Cell Distribution Width 14.6 % (11.0-16.0); White Blood Count 12.2 X10*3/uL (4.8-10.8)
[2021-04-30 11:25] LABS: Estimated Average Glucose 177 mg/dL; Hemoglobin A1c % 7.8 %
[2021-04-30 11:39] LABS: Microalbum/Creatinine Ratio Ur 12.4 ug/mg cr
[2021-04-30 12:00] LABS: Alanine Aminotransferase 6 U/L (0-31); Albumin Level 3.9 g/dL (3.5-5.0); Alkaline Phosphatase 86 U/L (39-117); Anion Gap 13 (12-20); Aspartate Amino Transferase 10 U/L (5-31); Blood Urea Nitrogen 13 mg/dL (9-16); Calcium 9.6 mg/dL (8.4-10.2); Carbon Dioxide 29 mmol/L (22-29); Chloride 105 mmol/L (96-108); Cholesterol 207 mg/dL; Estimated Glomerular Filt Rate > 60; Glucose Fasting 116 mg/dL (60-99); HDL Cholesterol 50 mg/dL; LDL Cholesterol Calculated 132 mg/dl; Sodium 143 mmol/L (135-145); Total Protein 6.9 g/dL (6.5-8.0); Triglycerides 127 mg/dL
[2021-04-30 12:21] LABS: TSH reflex Free T4 0.65 uIU/mL (0.32-4.0); Vitamin D 25-OH Total 32.6 ng/mL (>30)
[2021-05-02 09:02] LABS: Folate 12.7 ng/mL (> or = 4.0); Vitamin B12 765 pg/mL (200-900)
== END 2021-04-30 09:38 | disposition home or self-care (01) ==
LOC: HO.XRAY 09:37
PROVIDERS: PCP Internal Medicine; Visit Provider Internal Medicine
DX: M25.551 Pain in right hip (principal); E78.00 Pure hypercholesterolemia, unspecified; E11.9 Type 2 diabetes mellitus without complications; I10 Essential (primary) hypertension; E55.9 Vitamin D deficiency, unspecified; E53.8 Deficiency of other specified B group vitamins
CPT/HCPCS: 36415; 73502; 80053; 80061; 81003; 82043; 82306; 82607; 82746; 83036; 84443; 85025

== ENCOUNTER → 2021-05-17 08:24 | Outpatient (BNVA) | payer OTHER, SELFPAY | PROVIDERS: PCP Internal Medicine; Referring Provider Internal Medicine; Visit Provider Internal Medicine | DX: I25.10 Atherosclerotic heart disease of native coronary artery without angina pectoris (principal); I10 Essential (primary) hypertension; I49.8 Other specified cardiac arrhythmias; E11.8 Type 2 diabetes mellitus with unspecified complications | CPT/HCPCS: 99212 ==

== ENCOUNTER 2021-05-23 07:29 | Outpatient (REF) | payer OTHER, SELFPAY ==
--- NOTE | ~2021-05-23 | MM_ITS ---
EXAMINATION: MM SCREENING DIGITAL BREAST TOMOSYNTHESIS, BILATERAL CLINICAL INFORMATION: Screening. Asymptomatic. The lifetime risk of breast cancer based on the Tyrer-Cuzick Model is 5%. COMPARISON: Mammography: 04/20/2020, 04/15/2019, 04/09/2018 TECHNIQUE: Digital breast tomosynthesis is performed in both the craniocaudal and mediolateral oblique views along with computer-aided detection (CAD). Synthesized 2D images are generated from the tomosynthesis. FINDINGS: There are scattered areas of fibroglandular density (ACR BI-RADS breast composition Category b). There are no significant masses, abnormal calcifications, or other abnormalities. Breast tissue composition borders on predominantly fatty. Parenchymal pattern is similar to prior exams. The axilla and skin contours are unremarkable. MM/MM tomosynthesis screening BI IMPRESSION: No mammographic evidence of malignancy. ASSESSMENT: BI-RADS 1: Negative RECOMMENDATION: Routine annual mammography screening. This patient's information was entered into a reminder system with a target due date for their next mammogram.
== END 2021-05-23 07:30 | disposition home or self-care (01) ==
LOC: HO.MAMMO 07:29
PROVIDERS: Visit Provider Internal Medicine
DX: Z12.31 Encounter for screening mammogram for malignant neoplasm of breast (principal)
CPT/HCPCS: 77063; 77067

== ENCOUNTER 2021-06-01 09:10 | Outpatient (REF) | payer OTHER, SELFPAY ==
--- NOTE | ~2021-06-01 | XR_ITS ---
EXAMINATION: XR HAND, RIGHT CLINICAL INFORMATION: Pain right hand. COMPARISON: None TECHNIQUE: PA, lateral, and oblique views of the right hand. FINDINGS: There is severe osteopenia with subluxations at the 2nd through 5th metacarpophalangeal joints. Severe loss of 2nd MCP joint space is seen. There is a dorsal curved metallic plate extending from the distal radius to the 2nd metatarsals, stabilized with screws likely for wrist fusion. There is absorption of ulnar styloid process. There is no acute fracture seen. Degenerative arthritic changes are seen in the 1st carpometacarpal joint, PIP and DIP joints. XR/XR hand RT min 3V IMPRESSION: No acute fracture seen. There is diffuse osteopenia. Stabilized fused wrist with a dorsal plate and screws from the distal radius to the 3rd dorsal metacarpal. There is no visible acute fracture or dislocation. Especially no abnormality seen involving the 3rd digit except for metacarpophalangeal dislocations from 3rd to 5th digits.
== END 2021-06-01 09:11 | disposition home or self-care (01) ==
LOC: HO.HOSX 09:10
PROVIDERS: PCP Internal Medicine; Visit Provider Orthopaedic Surgery
DX: R20.0 Anesthesia of skin (principal); G56.01 Carpal tunnel syndrome, right upper limb
CPT/HCPCS: 73130; 99202

== ENCOUNTER 2021-06-27 05:51 | Day surgery (SDC) | payer OTHER, SELFPAY ==
[2021-06-21 13:35] VITALS: BMI 34.7
--- NOTE | 2021-06-24 08:06 | HO.ANESPROP2 ---
Documented by User: Kezia Patricia NP 06/24/21 08:17 HPI - Anesthesia Eval Consult details Narrative: 61yo F for Right Flexor Tendon Repair,carpal tunnel release Optimized per cardiology Daily prednisone for RA, methotrexate weekly PMF Active Problems Active Problems: All Active Problems (Updated 06/01/21 @ 10:24 by Lisa Taylor MD) Microcytic hypochromic anemia (Acute) Heart palpitations (Acute) Essential hypertension (Acute) Type 2 diabetes mellitus with unspecified complications (Acute) Numbness and tingling of both feet (Acute) Abnormal nuclear stress test (Acute) Atherosclerotic cardiovascular disease (Acute) Atrial arrhythmia (Acute) PAD (peripheral artery disease) (Acute) Strain of muscle, fascia and tendon of lower back, initial encounter (Acute) Right hip pain (Acute) Numbness of right hand (Acute) Carpal tunnel syndrome of right wrist (Acute) Abnormal bruising (Acute) Obesity (BMI 30-39.9) (Acute) Anxiety (Acute) Insomnia (Acute) GERD (gastroesophageal reflux disease) (Acute) Vitamin D deficiency (Acute) Ureterolithiasis (Acute) Neuropathy (Acute) Varicose veins of bilateral lower extremities with pain (Acute) Rheumatoid arthritis (Acute) Cervical spondylosis with radiculopathy (Acute) Asthma (Acute) Iron deficiency anemia, unspecified (Acute) Vitamin B12 deficiency (Acute) Hyperlipidemia (Acute) Hypertension, essential, benign (Acute) Diabetes mellitus (Acute) Past Medical History Medical History Abnormal bruising Anxiety Asthma Cervical spondylosis with radiculopathy Diabetes mellitus GERD (gastroesophageal reflux disease) Hyperlipidemia Hypertension, essential, benign Insomnia Iron deficiency anemia, unspecified Neuropathy Obesity (BMI 30-39.9) Rheumatoid arthritis Ureterolithiasis Varicose veins of bilateral lower extremities with pain Vitamin B12 deficiency Vitamin D deficiency Family History Family History Father Chronic mental illness Mother Diabetes Stroke Hypertension Surgical History Surgical History History of arthroplasty of left ankle History of arthroplasty of right ankle History of arthroplasty of right knee (~2008) History of surgery on left wrist History of surgery on right wrist Hx of lithotripsy S/P VANESSA-BSO (total abdominal hysterectomy and bilateral salpingo-oophorectomy) Social History Social History Housing: Apartment Alcohol intake: former Patient Tobacco Use Status: Former Tobacco user Quit Date: 2014 Years Smoked: quit 6 years ago e-Cigarette/Vaping Use: Never Used Second Hand Smoke Exposure: Yes Use of substances other than those prescribed or required for medical reasons: No Are you DNR?: No Advance Directives: No Advance Directives Information Provided: Yes service: No Current occupational status: disabled Cognitive needs: No Hearing needs: No Vision needs: No Meds Allergies Allergy/AdvReac Type Severity Reaction Status Date / Time No Known Allergies Allergy Verified 06/01/21 09:12 Home Medications Medication Instructions Recorded Confirmed Last Taken Type albuterol sulfate 2.5 mg INHALATION Q4-6H PRN 11/27/19 06/21/21 Unknown History folic acid 1 mg tablet 1 mg PO DAILY 11/27/19 06/21/21 Unknown History methotrexate sodium 2.5 mg tablet 2.5 mg PO QWEEK 11/27/19 06/21/21 Unknown History omeprazole 20 mg capsule,delayed 20 mg PO DAILY 11/27/19 06/21/21 Unknown History release alendronate 70 mg tablet 70 mg PO QWEEK 11/17/20 06/21/21 Unknown History prednisone 20 mg tablet 20 mg PO DAILY 03/16/21 06/21/21 Unknown History Exam Exam Date and Time: June 24, 2021 0806 Height,Weight and Vital Signs: Height 5 ft 2 in Weight 86 kg Pertinent Lab Results Pertinent Lab Results: Laboratory Tests 04/30/21 04/30/21 10:20 Unknown WBC 12.2 H Hgb 12.7 Hct 40.0 Plt Count 324 Sodium 143 Potassium 4.0 Chloride 105 Carbon Dioxide 29 BUN 13 Creatinine 0.79 Narrative Narrative: Coronary CTA shows focal calcification at left main origin with less than 50% stenosis; marked proximal LAD calcification but without occlusion and likely less than 50% stenosis; heavy proximal circumflex calcification but no occlusion-cannot exclude high-grade stenosis; moderate calcification in right coronary artery in the proximal segment but less than 40% narrowing.? Overall, treat for stable coronary disease as she has no angina.? ECHO 2020 Conclusions: - The left ventricular systolic function is normal.? The ? calculated ejection fraction is 61% by biplane method. ? - The basal inferior segment is hypokinetic. ? - There is mild calcification of the aortic valve. ? - There is mild mitral valve regurgitation.?? NM cardiolite stress test 2020 Impression: ? 1.? Myocardial perfusion imaging study shows apical ischemia 2.? Gated LVEF is 58% with stress and 70% with rest 3. Transient ischemic dilatation present ? EKG is nondiagnostic for ischemia Assessment and Plan Assessment Anesthesia Assessment: Chart Reviewed Documented by User: Victorino Colindres MD 06/27/21 09:22 HPI - Anesthesia Eval Consult details Narrative: 61yo F for Right Flexor Tendon Repair,carpal tunnel release chronic back pain with radiation to b/l LE. neck pain . Optimized per cardiology Daily prednisone for RA, methotrexate weekly PMFSH Past Medical History Medical History Abnormal bruising Anxiety Asthma Cervical spondylosis with radiculopathy Diabetes mellitus GERD (gastroesophageal reflux disease) Hyperlipidemia Hypertension, essential, benign Insomnia Iron deficiency anemia, unspecified Neuropathy Obesity (BMI 30-39.9) Rheumatoid arthritis Ureterolithiasis Varicose veins of bilateral lower extremities with pain Vitamin B12 deficiency Vitamin D deficiency Functional capacity: uses cane/walker Family History Family History Father Chronic mental illness Mother Diabetes Stroke Hypertension Family history of problems with anesthesia: No Surgical History Surgical History History of arthroplasty of left ankle History of arthroplasty of right ankle History of arthroplasty of right knee (~2008) History of surgery on left wrist History of surgery on right wrist Hx of lithotripsy S/P VANESSA-BSO (total abdominal hysterectomy and bilateral salpingo-oophorectomy) History of Problems with Anesthesia: No Social History Social History Housing: Apartment Alcohol intake: former Patient Tobacco Use Status: Former Tobacco user Quit Date: 2014 Years Smoked: quit 6 years ago e-Cigarette/Vaping Use: Never Used Second Hand Smoke Exposure: Yes Use of substances other than those prescribed or required for medical reasons: No Are you DNR?: No Advance Directives: No Advance Directives Information Provided: Yes service: No Current occupational status: disabled Cognitive needs: No Hearing needs: No Vision needs: No Meds Allergies Allergy/AdvReac Type Severity Reaction Status Date / Time No Known Allergies Allergy Verified 06/01/21 09:12 Home Medications Medication Instructions Recorded Confirmed Last Taken Type albuterol sulfate 2.5 mg INHALATION Q4-6H PRN 11/27/19 06/21/21 Unknown History folic acid 1 mg tablet 1 mg PO DAILY 11/27/19 06/21/21 Unknown History methotrexate sodium 2.5 mg tablet 2.5 mg PO QWEEK 11/27/19 06/21/21 Unknown History omeprazole 20 mg capsule,delayed 20 mg PO DAILY 11/27/19 06/21/21 Unknown History release alendronate 70 mg tablet 70 mg PO QWEEK 11/17/20 06/21/21 Unknown History prednisone 20 mg tablet 20 mg PO DAILY 03/16/21 06/21/21 Unknown History Exam Airway Mallampati Class: III TM Dist: >3cm Neck ROM: Limited Loose/Missing/Broken Teeth: Yes Heart: S1, S2 Lungs: b/l breath sounds Assessment and Plan Assessment Anesthesia Assessment: Anesthesia Plan Discussed Final Anesthetic Review Family History of Problems with Anesthesia: No History of Problems with Anesthesia: No NPO: Yes ASA Class: III Final Preanesthetic Review: Meds/Allgs Chart Reviewed, Consent Obtained/Reviewed and Anes Risks/Benef Reviewed Patient Risk: High Procedure Risk: Intermediate Anesthetic Plan Anesthetic Plan: GA Disposition: Standard PACU
[2021-06-27] VITALS (7 sets, daily range): BP systolic 115–143; BP diastolic 71–81; PULSE 74–92; RESP 16–18; TEMP 36.1–36.3; O2SAT 94–99
[2021-06-27 06:20] LABS: Glucose, Whole Blood 215 mg/dL (60-115)
[2021-06-27] MEDS: Lactated Ringers 1,000 ML 100 ML IVCONT (07:34)
--- NOTE | 2021-06-27 07:53 | MHC.SHP ---
Pre-Procedural Eval Section A Date of Service: 06/27/21 The patient is an INPATIENT: No Changes since office visit: No Cold of Flu in the past 2 weeks, No New Medical Problems, No Changes in Medication and No Patient answered all questions The History & Physical has been completed within 30 days and I have reviewed it.: Yes Section B Chief Complaint: Anesthesia of skin,carpal tunnel syndrome, RA Allergies: Allergies Allergy/AdvReac Type Severity Reaction Status Date / Time No Known Allergies Allergy Verified 06/01/21 09:12 Plan I have reviewed the history and physical and performed a pertinent physical examination on my patient. No changes have occurred unless specified.
--- NOTE | 2021-06-27 07:56 | W.PM.OPN ---
Operative Note Operative Note Date of Service: 06/27/21 Narrative: Operative Note Narrative: Preop diagnosis: 1. Right carpal tunnel syndrome 2. Rheumatoid arthritis Postop diagnosis: Same Procedure: 1. Right carpal tunnel release 2. Right wrist flexor tenosynovectomies Surgeon: Lisa Taylor MD Anesthesia: General Findings: inflammatory tenosynovium found, particularly about the deep flexor tendons. The tendons themselves appear to be in good condition. Implants: none Tourniquet time: Eighteen minutes EBL: 5.0 ml Specimen: right wrist flexor tenosynovium Drains: None Complications: None Disposition: Brought to the recovery room in stable condition Plan: She is currently receiving 30 mg of oxycodone Q 6 through a pain contract. I will not be giving her additional pain medication. Follow-up in 10-14 days for wound check, suture removal and to check pathology please note patient is on prednisone, which can affect wound healing Indications: The patient is a 61 year old woman with rheumatoid arthritis and right carpal tunnel syndrome . The risks and benefits of operative treatment, including but not limited to risk of damage to blood vessels, nerves, tendons, infection, recurrence, persistent pain or numbness, incomplete resolution of preoperative symptoms, or need for further surgery were discussed with the patient and they wished to proceed with surgery. Procedure: Once consent was obtained patient was brought back to the operating suite and placed in the operating table in a supine position. . Perioperative antibiotics and anesthesia was administered by the anesthesia team. A tourniquet was applied to the proximal aspect of the right upper extremity and the limb was prepped and draped in a standard surgical fashion. The limb was elevated exsanguinated with Esmarch bandage and the tourniquet inflated to 250 mm of mercury for a total tourniquet time of 18 minutes. I made a 2.5 cm longitudinal incision over the right carpal tunnel, then zigzagging ulnarly at the distal wrist crease extending again proximally in centrally For an additional 2.5 cm. The incision was made through the skin to the subcutaneous tissues using a #15 blade. Dissection was made down to the level of the Palmaris longus tendon and the palmar fascia. The palmar fascia was incised longitudinally and the palmaris longus was retracted radially. The median nerve was then identified in the distal forearm. we then expose the transverse carpal ligament with care being taken to protect the palmar cutaneous nerve. Once the transverse carpal ligament was clearly visualized, a longitudinal incision was made in the transverse carpal ligament 1st using a #15 blade, then using tenotomy scissors under direct visualization. Care was taken to look for and protect the motor branch of the median nerve when seen in this area. the median nerve was then retracted radially in the forearm. The FDS tendons only had a small amount of inflammatory tenosynovium, but there was more inflammatory tenosynovium about the FDP tendons deep in the forearm. I then performed tenosynovectomy is a by excising this inflammatory T no synovial from about the tendons. This was placed on the back table to be sent for histopathology. The flexor tendon some cells were in good condition. At this point the tourniquet was deflated and hemostasis obtained with a brief period of local pressure and bipolar electrocautery. The wound was copiously irrigated with normal saline. The skin edges were reapproximated with 5-0 nylon suture. The wound was infiltrated with some 1% lidocaine with epinephrine for postop pain control and a sterile dressing was applied. The patient appears to have tolerated the procedure well and with no complications. All digits were well vascularized conclusion of the case.
[2021-06-27 09:22] LABS: Glucose, Whole Blood 130 mg/dL (60-115)
[2021-06-27] MEDS: oxyCODONE HCl Immed Release 5 MG TABLET PO (10:16)
[2021-06-27] MEDS: Acetaminophen 325 MG TABLET 650 MG PO (10:16)
== END 2021-06-27 10:41 | disposition home or self-care (01) ==
PROVIDERS: PCP Internal Medicine; Visit Provider Orthopaedic Surgery
PROC: (CPT 64721; principal; 2021-06-27 07:30)
DX: G56.01 Carpal tunnel syndrome, right upper limb (principal); R20.0 Anesthesia of skin; M06.9 Rheumatoid arthritis, unspecified; I10 Essential (primary) hypertension; E11.9 Type 2 diabetes mellitus without complications; Z79.84 Long term (current) use of oral hypoglycemic drugs; Z79.52 Long term (current) use of systemic steroids; Z79.899 Other long term (current) drug therapy; Z87.891 Personal history of nicotine dependence
CPT/HCPCS: 64721; 26145; 82947; 88304; J0690; J2250; J2405; J3010

== ENCOUNTER → 2021-07-12 12:18 | Outpatient (BNVA) | payer OTHER, SELFPAY | PROVIDERS: Visit Provider Orthopaedic Surgery | DX: Z47.89 Encounter for other orthopedic aftercare (principal); Z86.69 Personal history of other diseases of the nervous system and sense organs | CPT/HCPCS: 99212 ==

== ENCOUNTER 2021-08-02 07:21 | Outpatient (REF) | payer OTHER, SELFPAY ==
[2021-08-02 07:38] LABS: MANUAL DIFF FLAG NO
[2021-08-02 08:17] LABS: Basophils Percent Auto 0.4 % (0-2); Eosinophils Absolute Auto 0.1 X10*3/uL (0.0-0.4); Eosinophils Percent Auto 0.5 % (0-4); Hematocrit 41.2 % (37.0-47.0); Hemoglobin 13.1 g/dl (12.0-16.0); Imm Gran Abs Auto 0.09 X10*3/uL (0.00-0.03); Imm Gran Pct Auto 0.9 % (0.0-0.4); Lymphocytes Absolute Auto 1.1 X10*3/uL (1.2-4.9); Lymphocytes Percent Auto 10.4 % (20-40); Mean Corpuscular HGB Conc 31.8 g/dl (31.0-35.0); Mean Corpuscular Hemoglobin 28.7 pg (27.0-33.0); Mean Corpuscular Volume 90.2 fL (80.0-98.0); Mean Platelet Volume 10.7 fL (9.4-12.3); Monocytes Absolute Auto 0.4 X10*3/uL (0.1-1.2); Monocytes Percent Auto 3.4 % (2-11); Neutrophils Absolute Auto 8.7 x10*3/uL (2.0-8.3); Neutrophils Percent Auto 84.4 % (45-73); Platelet Count 317 X10*3/uL (160-400); Red Blood Count 4.57 X10*6/uL (4.20-5.50); Red Cell Distribution Width 15.3 % (11.0-16.0); White Blood Count 10.3 X10*3/uL (4.8-10.8)
[2021-08-02 08:28] LABS: Estimated Average Glucose 177 mg/dL; Hemoglobin A1c % 7.8 %
[2021-08-02 08:32] LABS: Appearance Urine HAZY; Color Urine YELLOW; Glucose Urine UA NEG (NEG); Leukocyte Esterase Urine 2+ (NEG); Nitrite Urine NEG (NEG); UACC Culture Trigger YES; Urine Blood 3+ (NEG); Urine Ketones NEG (NEG); Urine Protein TRACE MG/DL (NEG-TRACE)
[2021-08-02 08:37] LABS: Alanine Aminotransferase 13 U/L (0-31); Alkaline Phosphatase 81 U/L (39-117); Anion Gap 15 (12-20); Aspartate Amino Transferase 12 U/L (5-31); Bilirubin Total 1.2 mg/dL (0.0-1.0); Blood Urea Nitrogen 11 mg/dL (9-16); Calcium 9.7 mg/dL (8.4-10.2); Carbon Dioxide 25 mmol/L (22-29); Chloride 105 mmol/L (96-108); Cholesterol 231 mg/dL; Estimated Glomerular Filt Rate > 60; Glucose Fasting 184 mg/dL (60-99); HDL Cholesterol 53 mg/dL; LDL Cholesterol Calculated 156 mg/dl; Potassium 4.9 mmol/L (3.3-5.1); Sodium 140 mmol/L (135-145); Total Protein 6.9 g/dL (6.5-8.0); Triglycerides 114 mg/dL
[2021-08-02 09:00] LABS: Bacteria Urine 4+ /LPF; Creatinine Urine 197.57 mg/dL; Microalbum/Creatinine Ratio Ur 13.1 ug/mg cr; Squamous Epithelial Cell Urine 3+ /LPF
[2021-08-02 09:01] LABS: TSH reflex Free T4 0.48 uIU/mL (0.32-4.0)
== END 2021-08-02 07:22 | disposition home or self-care (01) ==
LOC: HO.LAB 07:21
PROVIDERS: PCP Internal Medicine; Visit Provider Internal Medicine
DX: E78.00 Pure hypercholesterolemia, unspecified (principal); E11.9 Type 2 diabetes mellitus without complications; I10 Essential (primary) hypertension; E55.9 Vitamin D deficiency, unspecified
CPT/HCPCS: 36415; 80053; 80061; 81001; 82043; 82306; 83036; 84443; 85025; 87086; 87088; 87186

== ENCOUNTER → 2021-08-16 09:04 | Outpatient (BNVA) | payer OTHER, SELFPAY | PROVIDERS: PCP Internal Medicine; Visit Provider Orthopaedic Surgery | DX: M65.332 Trigger finger, left middle finger (principal); G56.01 Carpal tunnel syndrome, right upper limb; M06.9 Rheumatoid arthritis, unspecified; Z79.52 Long term (current) use of systemic steroids; Z79.899 Other long term (current) drug therapy | CPT/HCPCS: 20550; 99212; J1100 ==

== ENCOUNTER 2021-09-29 11:25 | Outpatient (REF) | payer OTHER, SELFPAY | END 2021-09-29 11:26 | disposition home or self-care (01) | LOC: HO.LNP 11:25 | PROVIDERS: Visit Provider Internal Medicine | DX: N30.90 Cystitis, unspecified without hematuria (principal) | CPT/HCPCS: 87086; 87088; 87186 ==

== ENCOUNTER 2021-10-10 14:18 | Outpatient (REF) | payer OTHER, SELFPAY ==
--- NOTE | ~2021-10-10 | US_ITS ---
EXAMINATION: US RETROPERITONEAL LIMITED (RENAL ONLY) CLINICAL INFORMATION: Flank pain. COMPARISON: US retroperitoneal limited (renal only) 11/04/2019 and 09/26/2019. XR abdomen KUB 10/15/2019 and 09/10/2019. CT abdomen and pelvis without contrast 08/22/2019. TECHNIQUE: Real-time imaging of the kidneys. FINDINGS: RIGHT KIDNEY: 10.2 x 4.0 x 5.0 cm (SAG x AP x TRV). The kidney is normal in size, contour, and echogenicity. Renal cortical thickness is normal. No focal parenchymal lesions or hydronephrosis. There is an upper pole echogenic stone measuring 0.2 x 0.2 x 0.2 cm. LEFT KIDNEY: 10.1 x 4.3 x 4.7 cm (SAG x AP x TRV). The kidney is normal in size, contour, and echogenicity. Renal cortical thickness is normal. No focal parenchymal lesions or hydronephrosis. There is an echogenic stone in the lower pole measuring 0.7 x 0.3 x 0.5 cm and 0.3 x 0.2 x 0.2 cm. There is no caliectasis. US/US renal BI IMPRESSION: Nonobstructive bilateral echogenic renal calculi. No caliectasis or hydronephrosis seen. Compared to previous exam 11/04/2019, 2 radiopaque calculi are seen in the lower pole left kidney. No echogenic calculi was seen in the right kidney.
[2021-10-10 15:28] LABS: Appearance Urine HAZY; Color Urine YELLOW; Glucose Urine UA Negative (NEG); Leukocyte Esterase Urine NEG (Negative); Nitrite Urine NEG (NEG); Specific Gravity - Urine 1.025 (1.005-1.025); Urine Blood Negative (NEG); Urine Ketones Negative (NEG); Urine Protein NEG (NEG-TRACE)
== END 2021-10-10 14:19 | disposition home or self-care (01) ==
LOC: HO.US 14:18
PROVIDERS: Visit Provider Internal Medicine
DX: R10.9 Unspecified abdominal pain (principal)
CPT/HCPCS: 76775; 81003

== ENCOUNTER → 2021-10-17 09:21 | Outpatient (BNVA) | payer OTHER, SELFPAY | PROVIDERS: PCP Internal Medicine; Referring Provider Internal Medicine; Visit Provider Internal Medicine | DX: I25.10 Atherosclerotic heart disease of native coronary artery without angina pectoris (principal); I10 Essential (primary) hypertension; I49.8 Other specified cardiac arrhythmias; E11.8 Type 2 diabetes mellitus with unspecified complications | CPT/HCPCS: 93005; 99212 ==

== ENCOUNTER → 2021-11-01 09:09 | Outpatient (BNVA) | payer OTHER, SELFPAY | PROVIDERS: PCP Internal Medicine; Visit Provider Urology | DX: N20.0 Calculus of kidney (principal) | CPT/HCPCS: 99202 ==

== ENCOUNTER 2021-11-16 06:49 | Day surgery (SDC) | payer OTHER, SELFPAY ==
--- NOTE | ~2021-11-16 | XR_ITS ---
EXAMINATION: XR ABDOMEN KUB CLINICAL INDICATION: Left renal stone. COMPARISON: Ultrasound dated 10/10/2021 TECHNIQUE: AP view of the abdomen. FINDINGS: The bowel gas pattern is normal with no evidence of ileus or obstruction. No unusual soft tissue calcifications are noted. No appreciable radiodense renal calculi. Phleboliths are present in the pelvis. The bones are unremarkable. XR/XR KUB IMPRESSION: No appreciable radiodense renal calculi.
[2021-11-16 07:22] VITALS: BMI 34.2
[2021-11-16 07:31] VITALS: BP 163/93; PULSE 97; RESP 16; TEMP 36.7; O2SAT 97
[2021-11-16] MEDS: Lactated Ringers 1,000 ML 100 ML IVCONT (07:37)
[2021-11-16 07:40] LABS: Glucose, Whole Blood 122 mg/dL (60-115)
[2021-11-16] MEDS: Acetaminophen 325 MG TABLET 650 MG PO (07:41)
--- NOTE | 2021-11-16 08:48 | HO.ANESPROP2 ---
HPI - Anesthesia Eval Consult details Narrative: left renal stone PMFSH Active Problems Active Problems: All Active Problems (Updated 11/14/21 @ 08:12 by Neo Anthony MD) Bilateral renal stones (Acute) Flank pain (Acute) Generalized anxiety disorder (Acute) Type 2 diabetes mellitus with hyperglycemia (Acute) Pyelonephritis of left kidney (Acute) Cystitis (Acute) Trigger finger, left middle finger (Acute) Microcytic hypochromic anemia (Acute) Heart palpitations (Acute) Essential hypertension (Acute) Type 2 diabetes mellitus with unspecified complications (Acute) Numbness and tingling of both feet (Acute) Abnormal nuclear stress test (Acute) Atherosclerotic cardiovascular disease (Acute) Atrial arrhythmia (Acute) PAD (peripheral artery disease) (Acute) Strain of muscle, fascia and tendon of lower back, initial encounter (Acute) Right hip pain (Acute) Numbness of right hand (Acute) Carpal tunnel syndrome of right wrist (Acute) Abnormal bruising (Acute) Obesity (BMI 30-39.9) (Acute) Anxiety (Acute) Insomnia (Acute) GERD (gastroesophageal reflux disease) (Acute) Vitamin D deficiency (Acute) Ureterolithiasis (Acute) Neuropathy (Acute) Varicose veins of bilateral lower extremities with pain (Acute) Rheumatoid arthritis (Acute) Cervical spondylosis with radiculopathy (Acute) Asthma (Acute) Iron deficiency anemia, unspecified (Acute) Vitamin B12 deficiency (Acute) Hyperlipidemia (Acute) Hypertension, essential, benign (Acute) Diabetes mellitus (Acute) Past Medical History Medical History Abnormal bruising Anxiety Asthma Cervical spondylosis with radiculopathy Diabetes mellitus GERD (gastroesophageal reflux disease) Hyperlipidemia Hypertension, essential, benign Insomnia Iron deficiency anemia, unspecified Neuropathy Obesity (BMI 30-39.9) Rheumatoid arthritis Ureterolithiasis Varicose veins of bilateral lower extremities with pain Vitamin B12 deficiency Vitamin D deficiency Family History Family History (Updated 11/14/21 @ 08:11 by Mili Alejandre) Father Chronic mental illness Mother Diabetes Hypertension Stroke Sister Heart disease Diabetes Family history of problems with anesthesia: No Surgical History Surgical History History of arthroplasty of left ankle History of arthroplasty of right ankle History of arthroplasty of right knee (~2008) History of surgery on left wrist History of surgery on right wrist Hx of lithotripsy S/P VANESSA-BSO (total abdominal hysterectomy and bilateral salpingo-oophorectomy) History of Problems with Anesthesia: No Social History Social History (Updated 11/14/21 @ 08:11 by Mili Alejandre) Household Members: Family Housing: Apartment Alcohol intake: former Patient Tobacco Use Status: Former Tobacco user Quit Date: 2014 Years Smoked: quit 6 years ago e-Cigarette/Vaping Use: Never Used Second Hand Smoke Exposure: No Use of substances other than those prescribed or required for medical reasons: No Are you DNR?: No Advance Directives: No Advance Directives Information Provided: Yes Advance Directives on File: No service: No Current occupational status: disabled Cognitive needs: No (cane) Hearing needs: No Vision needs: Yes (glasses) Meds Allergies Allergy/AdvReac Type Severity Reaction Status Date / Time No Known Allergies Allergy Verified 11/01/21 08:47 Active Medications: Current Medications Lactated Ringer's (Lr) 1,000 mls @ 100 mls/hr IVCONT .Q10H IAN Last Admin: 11/16/21 07:37 Dose: 100 mls/hr Home Medications Medication Instructions Recorded Confirmed Last Taken Type albuterol sulfate 2.5 mg/3 mL 2.5 mg inhalation Q4-6H PRN 11/27/19 10/17/21 Unknown History (0.083 %) solution for nebulization Wheezing folic acid 1 mg tablet 1 mg PO DAILY 11/27/19 10/17/21 Unknown History methotrexate sodium 2.5 mg tablet 2.5 mg PO QWEEK 11/27/19 10/17/21 Unknown History alendronate 70 mg tablet 70 mg PO QWEEK 11/17/20 10/17/21 Unknown History prednisone 5 mg tablet mg PO 11/01/21 Unknown History ezetimibe 10 mg tablet (Zetia) 10 mg PO DAILY 11/14/21 11/14/21 Unknown History Exam Exam Date and Time: November 16, 2021 0848 Height,Weight and Vital Signs: Height 5 ft 2 in Weight 84.822 kg Last Vital Signs Temp 98.1 F 11/16/21 07:31 Pulse 97 11/16/21 07:31 Resp 16 11/16/21 07:31 BP 163/93 H 11/16/21 07:31 Pulse Ox 97 11/16/21 07:31 O2 Del Method 11/16/21 07:31 Pertinent Lab Results Pertinent Lab Results: Laboratory Tests 11/16/21 07:35 POC Glucose 122 H Airway Mallampati Class: II TM Dist: >3cm Neck ROM: Full Denture: Upper and Lower Heart: [id number] Lungs: cta b/l Assessment and Plan Assessment Anesthesia Assessment: Anesthesia Plan Discussed and Chart Reviewed Final Anesthetic Review Family History of Problems with Anesthesia: No History of Problems with Anesthesia: No NPO: Yes ASA Class: III Final Preanesthetic Review: No Changes in Pt Med Stat, Meds/Allgs Chart Reviewed, Consent Obtained/Reviewed and Anes Risks/Benef Reviewed Patient Risk: Intermediate Procedure Risk: Low Anesthetic Plan Anesthetic Plan: GA, MAC: and Agree w/ Assess. and Plan Disposition: Standard PACU
--- NOTE | 2021-11-16 09:09 | P.HPSUR_ITS ---
Pre-Procedural Eval Section A Date of Service: 11/16/21 The patient is an INPATIENT: No Changes since office visit: No Cold of Flu in the past 2 weeks, No New Medical Problems, No Changes in Medication and No Patient answered all questions The History & Physical has been completed within 30 days and I have reviewed it.: Yes Section B Chief Complaint: Calculus of kidney Details of Present Illness: eswl left lower pole Relevant Social History: None Present Medications: see Short Stay Collaborative assessment Medical History: No relevant PMH History of Previous Operations: Relevant previous surgery/procedure and date(s) Allergies: Allergies Allergy/AdvReac Type Severity Reaction Status Date / Time No Known Allergies Allergy Verified 11/01/21 08:47 Review of Systems Sugical H&P ROS: Negative: Constitution, Cardiovascular, Respiratory, Neurological, Psychiatric, Hem-Onc, Allergic/Immunologic, Gastrointestinal, Genitourinary, Musculoskeletal, Integumentary, Endocrine and Eyes/Ea rs/Nose/Throat Exam Surgical H&P Exam: Normal: HEENT, Normal: Heart, Normal: Lungs, Normal: Extremities, Normal: Abdomen, Normal: Skin and Normal: Neurological Plan Diagnosis/Plan: Unchanged (eswl left) I have reviewed the history and physical and performed a pertinent physical examination on my patient. No changes have occurred unless specified.
--- NOTE | 2021-11-16 09:22 | W.PM.OPN ---
Operative Note Operative Note Date of Service: 11/16/21 Narrative: PreOperative Diagnosis: Left lower pole Renal stones Post Operative Diagnosis: Left lower pole Renal stones Procedure: Left lower pole ESWL Surgeon: Dr Les Knight Anesthesia: mac/sedation Indications for procedure: The patient understands ESWL may be a staged procedure and subsequent intervention may be required based on imaging after ESWL. They also understand there is a risk of bleeding to the kidney, infection, damage to adjacent organs, and stone migration following the procedure. - Imaging left lower pole 7 mm Procedure: After informed consent was verified the patient was brought to the operating room and placed in a supine position. Anesthesia was performed per protocol. Safety pause time-out was performed. Imaging was displayed in the room and laterality confirmed. ESWL was performed. The 1st 500 shocks were performed at 60 hertz. These were performed with increasing power. Once maximum power was reached the rate was increased to 180 hertz. A total of 2500 shocks were given. Targetted imaging with ultrasound/fluoroscopy showed stone smudging suggestive of disintegration. The patient tolerated the procedure well and was transferred to the recovery area upon completion. Post procedure imaging will be organized. There was no evidence for flank discoloration.
[2021-11-16 09:52] VITALS: BP 192/93; PULSE 75; RESP 16; TEMP 36.6; O2SAT 99
[2021-11-16 09:57] VITALS: BP 191/98; PULSE 77; RESP 16; O2SAT 100
[2021-11-16 10:08] VITALS: BP 186/90; PULSE 70; RESP 16; O2SAT 100
[2021-11-16] MEDS: Ketorolac Tromethamine 15 MG/ML VIAL IVPUSH (10:22)
[2021-11-16 10:23] VITALS: BP 183/68; PULSE 67; RESP 16; O2SAT 97
[2021-11-16] MEDS: traMADoL HCL 50 MG TABLET PO (10:24)
[2021-11-16] MEDS: Phenazopyridine HCL 100 MG TABLET PO (10:24)
[2021-11-16 10:38] VITALS: BP 170/78; PULSE 68; RESP 16; TEMP 36.2; O2SAT 97
== END 2021-11-16 11:34 | disposition home or self-care (01) ==
PROVIDERS: PCP Internal Medicine; Visit Provider Urology
PROC: (CPT 50590; principal; 2021-11-16 08:50)
DX: N20.0 Calculus of kidney (principal); Z87.442 Personal history of urinary calculi; J45.909 Unspecified asthma, uncomplicated; I10 Essential (primary) hypertension; E11.9 Type 2 diabetes mellitus without complications; D50.9 Iron deficiency anemia, unspecified; M06.9 Rheumatoid arthritis, unspecified; E78.5 Hyperlipidemia, unspecified; Z79.899 Other long term (current) drug therapy; Z87.891 Personal history of nicotine dependence
CPT/HCPCS: 50590; 74018; 82947; J1885; J2250; J3010

== ENCOUNTER 2021-12-02 09:52 | Outpatient (REF) | payer OTHER, SELFPAY ==
[2021-12-02 10:58] LABS: Alanine Aminotransferase 12 U/L (0-31); Alkaline Phosphatase 89 U/L (39-117); Anion Gap 14 (12-20); Aspartate Amino Transferase 17 U/L (5-31); Bilirubin Total 1.1 mg/dL (0.0-1.0); Blood Urea Nitrogen 14 mg/dL (9-16); Calcium 9.5 mg/dL (8.4-10.2); Carbon Dioxide 28 mmol/L (22-29); Chloride 106 mmol/L (96-108); Cholesterol 162 mg/dL; Estimated Glomerular Filt Rate 58; Glucose Fasting 113 mg/dL (60-99); HDL Cholesterol 45 mg/dL; LDL Cholesterol Calculated 85 mg/dl; Potassium 4.9 mmol/L (3.3-5.1); Sodium 143 mmol/L (135-145); Total Protein 6.6 g/dL (6.5-8.0); Triglycerides 163 mg/dL
== END 2021-12-02 09:53 | disposition home or self-care (01) ==
LOC: HO.LAB 09:52
PROVIDERS: PCP Internal Medicine; Visit Provider Internal Medicine
DX: E78.00 Pure hypercholesterolemia, unspecified (principal)
CPT/HCPCS: 36415; 80053; 80061

== ENCOUNTER 2021-12-09 10:32 | Emergency (ER) | payer OTHER, SELFPAY ==
--- NOTE | 2021-12-09 | ECG_ITS ---
Test Reason : HYPERTENSION Blood Pressure : / mmHG Vent. Rate : 091 BPM Atrial Rate : 091 BPM P-R Int : 130 ms QRS Dur : 078 ms QT Int : 368 ms P-R-T Axes : 029 009 007 degrees QTc Int : 452 ms Normal sinus rhythm Normal ECG When compared with ECG of 22-AUG-2019 00:37, No significant change was found Referred By: Generic ED Physician Electronically Signed By:GIOVANNY NEWBY MD
[2021-12-09 10:37] VITALS: BP 189/111; PULSE 126; RESP 18; TEMP 36.6; O2SAT 98; BMI 33.6
[2021-12-09 12:01] LABS: MANUAL DIFF FLAG NO
[2021-12-09 12:03] LABS: Basophils Absolute Auto 0.1 X10*3/uL (0.0-0.2); Basophils Percent Auto 0.5 % (0-2); Eosinophils Absolute Auto 0.3 X10*3/uL (0.0-0.4); Eosinophils Percent Auto 3.2 % (0-4); Hematocrit 39.9 % (37.0-47.0); Hemoglobin 12.9 g/dl (12.0-16.0); Imm Gran Abs Auto 0.08 X10*3/uL (0.00-0.03); Imm Gran Pct Auto 0.9 % (0.0-0.4); Lymphocytes Absolute Auto 1.4 X10*3/uL (1.2-4.9); Lymphocytes Percent Auto 14.5 % (20-40); Mean Corpuscular HGB Conc 32.3 g/dl (31.0-35.0); Mean Corpuscular Hemoglobin 29.3 pg (27.0-33.0); Mean Corpuscular Volume 90.7 fL (80.0-98.0); Mean Platelet Volume 10.2 fL (9.4-12.3); Monocytes Absolute Auto 0.8 X10*3/uL (0.1-1.2); Monocytes Percent Auto 8.7 % (2-11); Neutrophils Absolute Auto 6.8 x10*3/uL (2.0-8.3); Neutrophils Percent Auto 72.2 % (45-73); Platelet Count 358 X10*3/uL (160-400); Red Cell Distribution Width 15.7 % (11.0-16.0); White Blood Count 9.4 X10*3/uL (4.8-10.8)
[2021-12-09 12:17] LABS: Anion Gap 18 (12-20); Blood Urea Nitrogen 10 mg/dL (9-16); Calcium 9.6 mg/dL (8.4-10.2); Carbon Dioxide 24 mmol/L (22-29); Chloride 105 mmol/L (96-108); Creatinine Clr Calc Pharmacy 64.9; Estimated Glomerular Filt Rate > 60; Glucose Random 157 mg/dL (60-115); Sodium 143 mmol/L (135-145)
[2021-12-09 12:25] LABS: Troponin-I High Sensitivity < 3.5 ng/L (<3.5-17.0)
[2021-12-09 13:56] VITALS: BP 186/100; PULSE 100; RESP 18; TEMP 37.2; O2SAT 100
[2021-12-09 15:41] VITALS: BP 157/103; PULSE 100; RESP 18; TEMP 37.2; O2SAT 98
== END 2021-12-09 20:09 | disposition left against medical advice (07) ==
PROVIDERS: Student in an Organized Health Care Education/Training Program; Emergency Provider Emergency Medicine; PCP Internal Medicine
DX: M54.50 Low back pain, unspecified (principal); I10 Essential (primary) hypertension; R07.89 Other chest pain; Z79.899 Other long term (current) drug therapy
CPT/HCPCS: 36415; 80048; 84484; 85025; 93005; 99283

== ENCOUNTER 2021-12-27 13:40 | Outpatient (REF) | payer OTHER, SELFPAY ==
--- NOTE | ~2021-12-27 | US_ITS ---
EXAMINATION: US RETROPERITONEAL LIMITED (RENAL ONLY) CLINICAL INFORMATION: Renal calculi. COMPARISON: Ultrasound renal 10/10/2021 TECHNIQUE: Real-time imaging of the kidneys. Bladder not imaged. FINDINGS: RIGHT KIDNEY: 9.6 x 4.1 x 4.7 cm (SAG x AP x TRV). The kidney is normal in size, contour, and echogenicity. Renal cortical thickness is normal. No hydronephrosis or caliectasis. There is a 3 mm specular echo interpolar region suspicious for nonobstructing calculus. A tiny cyst is present in the interpolar region measuring under 1 cm. No additional imaging follow-up required. LEFT KIDNEY: 9.9 x 4.4 x 4.7 cm (SAG x AP x TRV). The kidney is normal in size, contour, and echogenicity. Renal cortical thickness is normal. No calculi or focal parenchymal lesions. No hydronephrosis. US/US renal BI IMPRESSION: 1. Right: No hydronephrosis. Suspect 3 mm nonobstructing calculus interpolar region. 2. Left: No hydronephrosis or visible calculi.
== END 2021-12-27 13:41 | disposition home or self-care (01) ==
LOC: HO.HMGCX 13:40
PROVIDERS: Absent Provider Internal Medicine Rheumatology; PCP Internal Medicine; Visit Provider Urology
DX: N20.0 Calculus of kidney (principal); R10.9 Unspecified abdominal pain
CPT/HCPCS: 76775

== ENCOUNTER → 2021-12-30 11:50 | Outpatient (BNVA) | payer OTHER, SELFPAY | PROVIDERS: PCP Internal Medicine; Visit Provider Urology | DX: N20.0 Calculus of kidney (principal) | CPT/HCPCS: 99214 ==

== ENCOUNTER 2022-01-27 08:10 | Outpatient (REF) | payer OTHER, SELFPAY ==
--- NOTE | ~2022-01-27 | XR_ITS ---
EXAMINATION: XR LUMBOSACRAL SPINE CLINICAL INFORMATION: Low back pain COMPARISON: Previous lumbar spine MRI December 2017 TECHNIQUE: Three views of the lumbosacral spine. FINDINGS: There is mild 3 mm anterior subluxation of L4 with respect L5. Bone alignment is otherwise normal. There is slight loss of height of the T11 vertebral body questionable for mild compression fracture. This is new from 2018. No other fracture. Degenerative disc disease at T11-T12 and T12-L1. There is mild facet arthritis of the lower lumbar spine. There is atherosclerotic disease. XR/XR lumbar spine 2-3V IMPRESSION: Mild T11 vertebral body compression fractures new in the interval from December 2017 MRI. Mild degenerative changes.
== END 2022-01-27 08:11 | disposition home or self-care (01) ==
LOC: HO.XRAY 08:10
PROVIDERS: PCP Internal Medicine; Visit Provider Internal Medicine
DX: M54.50 Low back pain, unspecified (principal)
CPT/HCPCS: 72100

== ENCOUNTER 2022-04-12 11:35 | Outpatient (REF) | payer OTHER, SELFPAY ==
[2022-04-12 11:50] LABS: MANUAL DIFF FLAG NO
[2022-04-12 13:03] LABS: Basophils Absolute Auto 0.1 X10*3/uL (0.0-0.2); Basophils Percent Auto 0.5 % (0-2); Eosinophils Absolute Auto 0.3 X10*3/uL (0.0-0.4); Hematocrit 39.8 % (37.0-47.0); Hemoglobin 12.6 g/dl (12.0-16.0); Imm Gran Abs Auto 0.11 X10*3/uL (0.00-0.03); Lymphocytes Absolute Auto 1.5 X10*3/uL (1.2-4.9); Lymphocytes Percent Auto 13.3 % (20-40); Mean Corpuscular HGB Conc 31.7 g/dl (31.0-35.0); Mean Corpuscular Hemoglobin 29.9 pg (27.0-33.0); Mean Corpuscular Volume 94.5 fL (80.0-98.0); Mean Platelet Volume 11.4 fL (9.4-12.3); Monocytes Absolute Auto 0.4 X10*3/uL (0.1-1.2); Monocytes Percent Auto 3.3 % (2-11); Neutrophils Percent Auto 78.9 % (45-73); Platelet Count 374 X10*3/uL (160-400); Red Blood Count 4.21 X10*6/uL (4.20-5.50); Red Cell Distribution Width 15.1 % (11.0-16.0); White Blood Count 11.4 X10*3/uL (4.8-10.8)
[2022-04-12 13:13] LABS: Estimated Average Glucose 134 mg/dL; Hemoglobin A1c % 6.3 %
[2022-04-12 13:35] LABS: Appearance Urine Clear; Color Urine Yellow; Glucose Urine UA Negative (Negative); Leukocyte Esterase Urine Negative (Negative); Nitrite Urine Negative (Negative); PH 5.5 (5.0-9.0); Urine Blood Negative (Negative); Urine Ketones Negative (Negative); Urine Protein Negative (Neg-Trace)
[2022-04-12 13:51] LABS: Alanine Aminotransferase 11 U/L (0-31); Albumin Level 3.9 g/dL (3.5-5.0); Alkaline Phosphatase 94 U/L (39-117); Anion Gap 18 (12-20); Aspartate Amino Transferase 14 U/L (5-31); Blood Urea Nitrogen 14 mg/dL (9-16); Calcium 9.5 mg/dL (8.4-10.2); Carbon Dioxide 24 mmol/L (22-29); Chloride 107 mmol/L (96-108); Cholesterol 256 mg/dL; Estimated Glomerular Filt Rate > 60; Glucose Fasting 178 mg/dL (60-99); HDL Cholesterol 51 mg/dL; LDL Cholesterol Calculated 170 mg/dl; Potassium 4.6 mmol/L (3.3-5.1); Sodium 144 mmol/L (135-145); Total Protein 6.6 g/dL (6.5-8.0); Triglycerides 176 mg/dL
[2022-04-12 14:11] LABS: Folate > 20.0 ng/mL (> or = 4.0); TSH reflex Free T4 0.53 uIU/mL (0.32-4.0); Vitamin B12 503 pg/mL (200-900); Vitamin D 25-OH Total 45.5 ng/mL (>30)
[2022-04-12 14:25] LABS: Creatinine Urine 123.58 mg/dL
== END 2022-04-12 11:36 | disposition home or self-care (01) ==
LOC: HO.LAB 11:35
PROVIDERS: PCP Internal Medicine; Visit Provider Internal Medicine
DX: E78.00 Pure hypercholesterolemia, unspecified (principal); E11.9 Type 2 diabetes mellitus without complications; E53.8 Deficiency of other specified B group vitamins; R30.0 Dysuria; E55.9 Vitamin D deficiency, unspecified; I10 Essential (primary) hypertension
CPT/HCPCS: 36415; 80053; 80061; 81003; 82043; 82306; 82607; 82746; 83036; 84443; 85025

== ENCOUNTER 2022-05-01 10:20 | Outpatient (REF) | payer OTHER, SELFPAY ==
[2022-05-01 10:32] LABS: MANUAL DIFF FLAG NO
[2022-05-01 10:58] LABS: Appearance Urine Turbid; Color Urine Yellow; Glucose Urine UA Negative (Negative); Leukocyte Esterase Urine Negative (Negative); Nitrite Urine Negative (Negative); PH 5.5 (5.0-9.0); Specific Gravity - Urine 1.025 (1.005-1.025); UMIC TRIGGER UACC YES; Urine Blood Moderate (2+) (Negative); Urine Ketones Trace mg/dL (Negative); Urine Protein 300 (3+) mg/dL (Neg-Trace)
[2022-05-01 11:08] LABS: Basophils Absolute Auto 0.1 X10*3/uL (0.0-0.2); Basophils Percent Auto 0.7 % (0-2); Eosinophils Absolute Auto 0.6 X10*3/uL (0.0-0.4); Eosinophils Percent Auto 4.5 % (0-4); Hematocrit 38.1 % (37.0-47.0); Hemoglobin 12.2 g/dl (12.0-16.0); Imm Gran Abs Auto 0.15 X10*3/uL (0.00-0.03); Imm Gran Pct Auto 1.1 % (0.0-0.4); Lymphocytes Absolute Auto 2.2 X10*3/uL (1.2-4.9); Lymphocytes Percent Auto 16.9 % (20-40); Mean Corpuscular Volume 93.8 fL (80.0-98.0); Mean Platelet Volume 10.9 fL (9.4-12.3); Monocytes Absolute Auto 0.9 X10*3/uL (0.1-1.2); Neutrophils Absolute Auto 9.2 x10*3/uL (2.0-8.3); Neutrophils Percent Auto 69.8 % (45-73); Platelet Count 351 X10*3/uL (160-400); Red Blood Count 4.06 X10*6/uL (4.20-5.50); White Blood Count 13.2 X10*3/uL (4.8-10.8)
[2022-05-01 11:11] LABS: Bacteria Urine 2+ (None Seen); Granular Casts Urine Present; RBC Urine 0-2 /HPF (0-2); WBC Urine 0-5 /HPF (0-5)
[2022-05-01 11:51] LABS: Creatinine Urine 218.04 mg/dL; Microalbum/Creatinine Ratio Ur 172.9 ug/mg cr
[2022-05-01 12:08] LABS: TSH reflex Free T4 0.65 uIU/mL (0.32-4.0); Vitamin D 25-OH Total 44.8 ng/mL (>30)
== END 2022-05-01 10:21 | disposition home or self-care (01) ==
LOC: HO.LAB 10:20
PROVIDERS: PCP Internal Medicine; Visit Provider Internal Medicine
DX: E11.9 Type 2 diabetes mellitus without complications (principal); E78.00 Pure hypercholesterolemia, unspecified; E55.9 Vitamin D deficiency, unspecified; I10 Essential (primary) hypertension
CPT/HCPCS: 36415; 81001; 81003; 82043; 82306; 84443; 85025

== ENCOUNTER 2022-05-05 08:29 | Outpatient (REF) | payer OTHER, SELFPAY ==
--- NOTE | ~2022-05-05 | US_ITS ---
EXAMINATION: US ABDOMEN COMPLETE CLINICAL INFORMATION: Unspecified abdominal pain. COMPARISON: Renal ultrasounds dated 12/27/2021 and 10/10/2021. KUBs dated 11/16/2021 and 10/15/2019. CT abdomen and pelvis without contrast dated 08/22/2019. TECHNIQUE: Real-time imaging of the abdominal viscera. FINDINGS: PANCREAS: Limited. The visualized pancreatic head and proximal body are normal in appearance. The remainder of the pancreas is obscured from visualization by the overlying bowel gas. ABDOMINAL AORTA: The proximal, mid, and distal segments are normal in caliber. INFERIOR VENA CAVA: Patent on limited imaging. LIVER: The liver is normal in size. The liver contour is normal. There is diffuse increased liver parenchymal echogenicity. No focal hepatic lesion. There is no intrahepatic biliary duct dilatation seen. GALLBLADDER: Normal. The gallbladder is physiologically distended without evidence of stones, sludge, polyps, wall thickening or pericholecystic fluid. COMMON BILE DUCT: Normal in caliber measuring 0.4 cm in diameter. RIGHT KIDNEY: At the interpolar aspect, a 1.0 cm in maximal diameter anechoic, simple cyst is seen. No hydronephrosis or renal calculi. The kidney measures 10.3 cm in maximum dimension. LEFT KIDNEY: At the upper pole, a 2 mm nonobstructing calculus is seen, with twinkle artifact. No hydronephrosis or focal parenchymal lesions. The kidney measures 9.5 cm in maximum dimension. SPLEEN: Normal. The spleen measures 7.6 cm in maximum dimension. FREE FLUID: None. US/US abdomen complete IMPRESSION: 1. There is generalized increase in hepatic echotexture, consistent with fatty infiltration or hepatocellular disease. Please correlate clinically. No focal hepatic mass or intrahepatic biliary dilatation is seen. 2. A 2 mm nonobstructing left renal upper pole calculus is seen. No right renal calculus is seen. No hydronephrosis is noted bilaterally. 3. A 1.0 cm benign, simple right renal interpolar cyst is seen. This requires no imaging follow-up. 4. Technically limited examination, in particular of the pancreas and inferior vena cava.
== END 2022-05-05 08:30 | disposition home or self-care (01) ==
LOC: HO.US 08:29
PROVIDERS: PCP Internal Medicine; Visit Provider Internal Medicine
DX: R10.9 Unspecified abdominal pain (principal)
CPT/HCPCS: 76700

== ENCOUNTER 2022-05-29 07:46 | Outpatient (REF) | payer OTHER, SELFPAY ==
--- NOTE | ~2022-05-29 | MM_ITS ---
EXAMINATION: MM SCREENING DIGITAL BREAST TOMOSYNTHESIS, BILATERAL CLINICAL INFORMATION: Screening. Asymptomatic. The lifetime risk of breast cancer based on the Tyrer-Cuzick Model is 10%. COMPARISON: Mammography: 05/23/2021, 04/20/2020, 04/15/2019, 04/09/2018 TECHNIQUE: Digital breast tomosynthesis is performed in both the craniocaudal and mediolateral oblique views along with computer-aided detection (CAD). Synthesized 2D images are generated from the tomosynthesis. FINDINGS: There are scattered areas of fibroglandular density (ACR BI-RADS breast composition Category b). There are no significant masses, abnormal calcifications, or other abnormalities. No architectural abnormality or developing density or significant change from prior studies. Breast tissue composition borders on predominantly fatty. MM/MM tomosynthesis screening BI IMPRESSION: No mammographic evidence of malignancy. ASSESSMENT: BI-RADS 1: Negative RECOMMENDATION: Routine annual mammography screening. This patient's information was entered into a reminder system with a target due date for their next mammogram.
== END 2022-05-29 07:47 | disposition home or self-care (01) ==
LOC: HO.MAMMO 07:46
PROVIDERS: PCP Internal Medicine; Visit Provider Internal Medicine
DX: Z12.31 Encounter for screening mammogram for malignant neoplasm of breast (principal)
CPT/HCPCS: 77063; 77067

== ENCOUNTER 2022-07-12 11:51 | Outpatient (AMB) | payer OTHER, SELFPAY ==
--- NOTE | 2022-07-12 12:30 | A.OFFPC_ITS ---
Vital Signs 07/12/22 12:31 Height 5 ft 2 in Weight 184 lb BMI 33.7 BP 118/78 Blood Pressure Location Lt brachial Position Sitting Pulse 90 Pulse Source Pulse Oximeter Pulse Oximetry (%) 98 Oxygen Delivery Method Room Air Intake Visit Reasons: 3mth f/u Intake Note: Patient is here for a three months follow up. [employer] Aide Required: No Accompanied by: Self / Same As Patient Allergies No Known Allergies Allergy (Verified 10/25/22 10:11) Medication List - Last Reconciled 07/12/22 by Michael Vogel MD acetaminophen (Acetaminophen Pain Relief) 1,000 mg (2 x 500 mg) PO Q6H PRN albuterol sulfate 2.5 mg inhalation Q4-6H PRN alendronate 70 mg PO QWEEK blood sugar diagnostic (FreeStyle Test strips) 1 strip miscellaneous TID cyanocobalamin (vitamin B-12) 1,000 mcg IM Q4W ergocalciferol (vitamin D2) 1,250 mcg PO QWEEK ezetimibe (Zetia) 10 mg PO DAILY folic acid 1 mg PO DAILY gabapentin 400 mg PO TID 30 days hydrochlorothiazide 25 mg PO DAILY ibuprofen 600 mg PO Q8H PRN lidocaine 5% 1 patch topical DAILY lisinopril 20 mg PO DAILY metformin 1,000 mg PO BID methotrexate (PF) (Rasuvo (PF)) mg subcut naproxen 500 mg PO BID PRN 30 days Nystop (nystatin) 1 appl topical TID NS omeprazole 20 mg PO DAILY 90 days oxycodone 30 mg PO Q6H PRN 28 days pyridoxine (vitamin B6) 100 mg PO DAILY 90 days rosuvastatin (Crestor) 40 mg PO DAILY 90 days Ventolin HFA 90 mcg/actuation (albuterol sulfate) 2 puffs inhalation Q6H PRN NS zolpidem 10 mg PO BEDTIME PRN 30 days Tobacco use date assessed: 07/12/22 HPI 3mth f/u HPI Details Patient comes in today for her follow up visit States that her feet has been feeling cold and numb quite often lately She was seen by neurology recently (referred to neurology by Dr. Anthony) and was diagnosed with sensory neuropathy and was started on Amitriptyline 10 mg Q HS but she could not tolerate the Rx due to side effects (hives and increased somnolence) She was started also on Pramipexole recently for RLS but states that she still has not received her Rx yet - was reportedly advised by her pharmacist that her insurance did not approve the Rx (?) Adds that she has an appointment with nephrology coming up in a couple of weeks Still has chronic pains over her lower back and over multiple joints and she continues to see Dr. Kennedy at [facility] in [place] for her RA and polyarthritis Was on Rinvoq but she had to stop taking the medication recently due to side effects (diarrhea); currently remains on Methotrexate and Prednisone Needs her pain med Rx refilled today She denies any headaches or dizziness Denies any chest pains, no increased SOB No nausea/vomiting, no abdominal pain No change in bowel habits noted Was not able to get her follow up labs done prior to her visit today [facility] Medical History Abnormal bruising Anxiety Asthma Cervical spondylosis with radiculopathy Diabetes mellitus GERD (gastroesophageal reflux disease) Hyperlipidemia Hypertension, essential, benign Insomnia Iron deficiency anemia, unspecified Neuropathy Obesity (BMI 30-39.9) Rheumatoid arthritis Ureterolithiasis Varicose veins of bilateral lower extremities with pain Venous insufficiency of both lower extremities Vitamin B12 deficiency Vitamin D deficiency Surgical History History of arthroplasty of left ankle History of arthroplasty of right ankle History of arthroplasty of right knee (~2008) History of surgery on left wrist History of surgery on right wrist Hx of lithotripsy S/P VANESSA-BSO (total abdominal hysterectomy and bilateral salpingo-oophorectomy) Family History Father Chronic mental illness Mother Diabetes Hypertension Stroke Sister Heart disease Diabetes Social History Household Members: Family Housing: Apartment Alcohol intake: never Patient Tobacco Use Status: Former Tobacco user Quit Date: 2014 Smoked: quit 6 years ago e-Cigarette/Vaping Use: Never Used Second Hand Smoke Exposure: No service: No Current occupational status: disabled Cognitive needs: No (cane) Hearing needs: No Vision needs: Yes (glasses) Questionnaire PHQ-9 Over the last 2 weeks, how often have you been bothered by any of the following problems? 1. Little interest or pleasure in doing things: not at all 2. Feeling down, depressed, or hopeless: not at all 3. Trouble falling or staying asleep, or sleeping too much: not at all 4. Feeling tired or having little energy: not at all 5. Poor appetite or overeating: not at all 6. Feeling bad about yourself - or that you are a failure or have let yourself or your family down: not at all 7. Trouble concentrating on things, such as reading the newspaper or watching television: not at all 8. Moving or speaking so slowly that other people could have noticed. Or the opposite - being so fidgety or restless that you have been moving around a lot more than usual: not at all 9. Thoughts that you would be better off or of hurting yourself in some way: not at all Total score: 0 Depression Screening Interpretation: Negative [id number] - PHQ-9 Billing: Yes Source: Developed by Drs. Fredy Mota, Ayanna Sharp, Gaston Garcia and colleagues, with an educational stephanie from [employer]. Thrive Questionnaire Date Thrive assessed: 07/12/22 I am a: Patient What is your living situation today?: I have a steady place to live Within the past 12 months, did the food you bought not last and you didn't have the money to get more?: Never true Within the past 12 months, did you worry whether your food would run out before you got money to buy more?: Never true Currently or been in a relationship where the following occur: no concerns reported AUDIT C Alcohol Use Questionnaire (AUDIT-C) 1. How often do you have a drink containing alcohol?: Never 3. How often do you have six or more drinks on one occasion?: Never Total Score: 0 Score Reviewed/Action Taken: Yes BALJIT-7 AMB Questionnaire BALJIT-7 Date BALJIT - 7 assessed: 07/12/22 Feeling nervous, anxious, or on edge: 0 = Not at all Not being able to stop or control worryin = Not at all Worrying too much about different things: 0 = Not at all Trouble relaxin = Not at all Being so restless that it is hard to sit still: 0 = Not at all Becoming easily annoyed or irritable: 0 = Not at all Feeling afraid as if something awful might happen: 0 = Not at all Total BALJIT-7 score (0-4 normal; 5-9 mild; 10-14 moderate; 15-21 severe): 0 Source: Developed by Drs. Fredy Mota, Ayanna Sharp, Gaston Garcia and colleagues, with an educational stephanie from [employer]. BALJIT-7 Assessment Billing BALJIT-7 Assessment Tool: BALJIT-7 Assessment [id number] Review of Systems Const Denies chills, Reports fatigue, Denies fever(s) and Denies headache(s) ENT Denies dysphagia, Denies dizziness, Denies otalgia, Denies headache(s), Reports neck pain, Denies odynophagia and Denies sore throat Card Denies chest pain, Denies palpitations and Denies dyspnea Resp Denies cough and Denies dyspnea GI Denies abdominal pain, Denies constipation, Denies dysphagia, Denies heartburn, Denies diarrhea, Denies nausea, Denies odynophagia and Denies vomiting Denies nocturia and Denies dysuria Musc Reports back pain (over the lumbar spine - chronic), Reports arthralgias (involving multiple joints; increased pain over the right hip), Reports neck pain and Reports tingling (over both lower extremities, on and off) Skin/Breast Denies rash Neuro Denies dizziness, Denies headache(s), Reports radicular pain (in both lower extremities) and Reports tingling (over both lower extremities, on and off) Endo Reports fatigue and Denies palpitations Physical exam (Primary Care) Vital Signs: Last Vital Signs Pulse 90 07/12/22 12:31 BP 118/78 07/12/22 12:31 Pulse Ox 98 07/12/22 12:31 Oxygen Delivery Method Room Air 07/12/22 12:31 BMI result Body Mass Index 33.7 Tobacco/Smoking Status: Tobacco use Status Tobacco use date assessed 07/12/22 07/12/22 12:39 Patient Tobacco Use Status Former Tobacco user 07/12/22 12:39 e-Cigarette/Vaping Use Never Used 07/12/22 12:39 PHQ-9: PHQ-9 Score PHQ-9: Total score 0 10/25/22 12:09 Depression Screening Interpretation: Negative Thrive Assessment: Date of Thrive Assessment Date Thrive assessed 07/12/22 07/12/22 12:39 Currently or been in a relationship where the following occur: no concerns reported Const General: no acute distress and alert HENMT Ears: TM's normal bilaterally and EAC's normal Throat: Yes posterior oropharynx normal and Yes tonsils normal (no TP congestion noted) Neck Neck: Yes no lymphadenopathy and Yes supple Resp Auscultation: clear to auscultation bilaterally, no rales and no wheezes Cardio Rate: regular rate Rhythm: regular rhythm Heart sounds: no murmurs GI Palpation (GI): Soft to palpation and nontender Auscultation: normal bowel sounds Back/Spine/Pelvis Cervical Spine: Cervical spine tenderness Thoracic/Lumbar Spine: paraspinal muscle tenderness on the left in the lower thoracic and in the upper thoracic and lumbar spinal tenderness Extrem General: Yes no clubbing, cyanosis or edema Right upper extremity: Extremity exam: right hand Details: tenderness Left upper extremity: hand Details: tenderness Assessment and Plan Assessment & Plan (1) Hyperlipidemia: Code(s): E78.5 - Hyperlipidemia, unspecified Qualifiers: Hyperlipidemia type: pure hypercholesterolemia Qualified Code(s): E78.00 - Pure hypercholesterolemia, unspecified Plan: Was not able to get her follow up labs done recently- is reminded that her LDL cholesterol has increased significantly from previous (from 85 mg/dL to 170 mg/dL) on her labs back in March 2022 and she should make sure she gets her labs done again in the next 3 months for follow up Reinforced low cholesterol diet Continue Rosuvastatin 20 mg QD and Ezetimibe 10 mg QD for now Will recheck her labs and fasting lipids again in 3 months for follow up - will just have patient use her current orders (updated) for her next lab draw (2) Hypertension, essential, benign: Code(s): I10 - Essential (primary) hypertension Plan: Reinforced low sodium diet - goal is systolic BP of at least 120 to 130 mm or less Continue Lisinopril 20 mg QD and HCTZ 25 mg QD (3) Diabetes mellitus: Code(s): E11.9 - Type 2 diabetes mellitus without complications Qualifiers: Diabetes mellitus type: type 2 Diabetes mellitus longterm insulin use: without longterm use Diabetes mellitus complication status: with neurologic complications Diabetes mellitus complication detail: with unspecified neuropathy Qualified Code(s): E11.40 - Type 2 diabetes mellitus with diabetic neuropathy, unspecified Plan: HgbA1c was at 6.3% when last checked in March 2022 (in-office HgbA1c was at 7.1% previously) - goal is < 7.0% Reinforced diabetic diet Continue Metformin 1000 mg BID (4) Iron deficiency anemia, unspecified: Code(s): D50.9 - Iron deficiency anemia, unspecified Qualifiers: Iron deficiency anemia type: inadequate dietary iron intake Qualified Code(s): D50.8 - Other iron deficiency anemias Plan: Continue IV iron Tx as needed Follow up with hematology (Dr. Anthony) as scheduled Has been referred to GI for screening colonoscopy (recalls having one done at [facility] a few years ago but have been unable to locate [facility] or [facility]); she was seen last year but anesthesia recommended cardiac clearance first She has since been cleared but has not yet been scheduled and this has yet to be done Patient would like to hold off on this for now as she is currently in a lot of pain (from her kidney stones as well as over her left thoracolumbar area and inmultiple joints) - states that she will consider getting this done later when her current issues are better controlled (5) Asthma: Code(s): J45.909 - Unspecified asthma, uncomplicated Qualifiers: Asthma severity: mild Asthma persistence: intermittent Asthma complication type: uncomplicated Qualified Code(s): J45.20 - Mild intermittent asthma, uncomplicated Plan: Stable - states that she uses her Albuterol HFA inhaler only as needed (6) Neuropathy: Comment: Repeat NCV and EMG done in November 2017 revealed findings consistent with neuropathy Code(s): G62.9 - Polyneuropathy, unspecified Plan: Continue Gabapentin 300 mg TID; was not able to tolerate Amitriptyline recently Follow up with neurology as scheduled MRI of the cervical spine previously requested for was denied by insurance (7) Vitamin B12 deficiency: Code(s): E53.8 - Deficiency of other specified B group vitamins Plan: Continue oral Vitamin B12 1000 mcg QD and B12 injection monthly (8) Cervical spondylosis with radiculopathy: Code(s): M47.22 - Other spondylosis with radiculopathy, cervical region Plan: Continue Oxycodone 30 mg Q 6 hours PRN (Rx refilled), Cyclobenzaprine 5 mg TID PRN and Lidocaine 5% ointment topically TID PRN (9) Rheumatoid arthritis: Comment: Is on Prednisone 5 mg-20 mg daily, Methotrexate tablets 2.5 mg 6 tablets once a day on Sundays. Rinvoq ER 15 mg qd has been discontinued. Code(s): M06.9 - Rheumatoid arthritis, unspecified Plan: Follow up with rheumatology (Dr. Kennedy) as scheduled Continue Prednisone 2.5 mg QD and Methotrexate 2.5 mg 6 tablets Q week on Sundays; was previously on Rinvoq ER 15 mg QD but this was discontinued due to side effects (diarrhea) (10) Non-traumatic compression fracture of eleventh thoracic vertebra: Code(s): M48.54XA - Collapsed vertebra, not elsewhere classified, thoracic region, initial encounter for fracture Qualifiers: Encounter type: sequela Qualified Code(s): M48.54XS - Collapsed vertebra, not elsewhere classified, thoracic region, sequela of fracture Plan: This was seen on a recent repeat lumbar spine x-rays and is a new finding - is most likely a source of her recent recurrent left mid to lower back pain and discomfort Suspect that this may have resulted from her last ESWL a few months ago She reportedly had BMD done at Dr. Kennedy's office on 05/20/2021 and her left femur T-score at the time was at -1.8 Have advised her to follow up with Dr. Kennedy for this Continue Oxycodone 30 mg Q 6 hours PRN - Rx refilled (11) Vitamin D deficiency: Code(s): E55.9 - Vitamin D deficiency, unspecified Plan: Corrected; continue OTC Vitamin D supplements as well as her weekly 28719 units of Vitamin D2 weekly (12) GERD (gastroesophageal reflux disease): Comment: continue ppi- avoid culprits EGD- Code(s): K21.9 - Gastro-esophageal reflux disease without esophagitis Qualifiers: Esophagitis presence: without esophagitis Qualified Code(s): K21.9 - Gastro-esophageal reflux disease without esophagitis Plan: Dietary restrictions reinforced Continue Omeprazole 20 mg QD PRN (13) Venous insufficiency of both lower extremities: Code(s): I87.2 - Venous insufficiency (chronic) (peripheral) Plan: Follow up with vascular surgery (Dr. Yu Dietrich) as scheduled Has been advised to continue with conservative treatment for now due to her multiple comorbidities (14) Ureterolithiasis: Comment: S/P left ESWL a few months ago (had a 5 mm renal calculi), with resolution of symptoms Code(s): N20.1 - Calculus of ureter Plan: S/P repeat ESWL a few months ago but states that she is still experiencing recurrent pain and discomfort, and more recently, pain over her left lower throacic and lumbar area Follow up with urology as scheduled (15) Insomnia: Code(s): G47.00 - Insomnia, unspecified Qualifiers: Insomnia type: primary Qualified Code(s): F51.01 - Primary insomnia Plan: Sleep hygiene reinforced Continue Zolpidem 10 mg Q HS PRN (16) Anxiety: Code(s): F41.9 - Anxiety disorder, unspecified Plan: States that her anxiety has been controlled lately - used to take Fluoxetine but she has not been on this in a while now (17) Obesity (BMI 30-39.9): Code(s): E66.9 - Obesity, unspecified Plan: Reinforced diet/exercise as tolerated/lose weight Plan Follow up in 3 months Medications: Refilled oxycodone 30 mg PO Q6H PRN 112 tabs 0RF pain 28 days G62.9 - Polyneuropathy, unspecified, M47.22 - Other spondylosis with radiculopathy, cervical region Coding Level of Care Code Est Pt Level 4 (92409) Diagnoses Hyperlipidemia E78.00 Hyperlipidemia type: pure hypercholesterolemia Hypertension, essential, benign I10 Diabetes mellitus E11.40 Diabetes mellitus type: type 2 Diabetes mellitus longterm insulin use: without longterm use Diabetes mellitus complication status: with neurologic complications Diabetes mellitus complication detail: with unspecified neuropathy Iron deficiency anemia, unspecified D50.8 Iron deficiency anemia type: inadequate dietary iron intake Asthma J45.20 Asthma severity: mild Asthma persistence: intermittent Asthma complication type: uncomplicated Neuropathy G62.9 Vitamin B12 deficiency E53.8 Cervical spondylosis with radiculopathy M47.22 Rheumatoid arthritis M06.9 Non-traumatic compression fracture of eleventh thoracic vertebra M48.54XS Encounter type: sequela Vitamin D deficiency E55.9 GERD (gastroesophageal reflux disease) K21.9 Esophagitis presence: without esophagitis Venous insufficiency of both lower extremities I87.2 Ureterolithiasis N20.1 Insomnia F51.01 Insomnia type: primary Anxiety F41.9 Obesity (BMI 30-39.9) E66.9 Additional Codes BALJIT-7 Assessment Billing - BALJIT-7 Assessment Tool: BALJIT-7 Assessment [id number] ([id number])
[2022-07-12 12:31] VITALS: BP 118/78; PULSE 90; O2SAT 98; BMI 33.7
== END 2022-07-12 13:05 | disposition home or self-care (01) ==
LOC: HO.HMGH 11:51
PROVIDERS: PCP Internal Medicine; Visit Provider Internal Medicine
DX: I10 Essential (primary) hypertension (principal); E11.40 Type 2 diabetes mellitus with diabetic neuropathy, unspecified; J45.20 Mild intermittent asthma, uncomplicated; E55.9 Vitamin D deficiency, unspecified; K21.9 Gastro-esophageal reflux disease without esophagitis; M06.9 Rheumatoid arthritis, unspecified; E78.00 Pure hypercholesterolemia, unspecified; D50.8 Other iron deficiency anemias; G62.9 Polyneuropathy, unspecified; E53.8 Deficiency of other specified B group vitamins; M47.22 Other spondylosis with radiculopathy, cervical region; M48.54XS Collapsed vertebra, not elsewhere classified, thoracic region, sequela of fracture
CPT/HCPCS: 99214

== ENCOUNTER 2022-07-26 07:59 | Emergency (ER) | payer OTHER, SELFPAY ==
[2022-07-26 08:02] VITALS: BP 142/87; PULSE 94; RESP 18; TEMP 36.9; O2SAT 99; BMI 33.7
--- NOTE | 2022-07-26 08:17 | ED_ITS ---
HPI - General Adult General Chief complaint: Neck Pain/Injury Stated complaint: Neck pain rad to shoulder Time Seen by Provider: 07/26/22 08:16 Source: patient Mode of arrival: ambulatory Limitations: no limitations History of Present Illness HPI narrative: Patient is a 62 year old assigned female at with a history of DM presenting to the emergency department today with left sided neck pain that radiates down into her shoulder and upper arm. Patient states that over the last 3 days she has had left sided neck pain that radiates down into her left arm and shoulder. Patient states that it is worse with movement. Patient denies any dizziness, lightheadedness, abdominal pain, nausea, vomiting, fever, chills, blurry vision, double vision, loss of vision, chest pain, difficulty breathing, shortness of breath, back pain, night sweats, pain with urination, increased urinary frequency, increased urinary urgency, blood in her urine or stool, syncope or a near syncopal episode, recent trauma or falls, bowel incontinence, bladder incontinence, bowel retention, bladder retention, or any other complaints at this time. Onset (ago): day(s) (3) Location: neck Severity: mild Severity scale (1-10): 3 Quality: aching and dull Pain Consistency: constant Relieving factors: none Exacerbating factors: movement Associated symptoms: denies other symptoms Treatments prior to arrival: none Related Data Home Medications Medication Instructions Recorded Confirmed albuterol sulfate 2.5 mg/3 mL 2.5 mg inhalation Q4-6H PRN 11/27/19 07/12/22 (0.083 %) solution for nebulization Wheezing folic acid 1 mg tablet 1 mg PO DAILY 11/27/19 07/12/22 alendronate 70 mg tablet 70 mg PO QWEEK 11/17/20 07/12/22 ezetimibe 10 mg tablet (Zetia) 10 mg PO DAILY 11/14/21 07/12/22 methotrexate (PF) 20 mg/0.4 mL mg subcut 12/30/21 07/12/22 subcutaneous auto-injector (Rasuvo (PF)) Previous Rx's Medication Instructions Recorded acetaminophen 500 mg tablet 1,000 mg PO Q6H PRN pain #60 tabs 03/23/21 (Acetaminophen Pain Relief) Nystop 100,000 unit/gram topical 1 appl topical TID #60 grams 10/21/21 powder (nystatin) hydrochlorothiazide 25 mg tablet 25 mg PO DAILY #90 tabs 10/28/21 blood sugar diagnostic (FreeStyle 1 strip miscellaneous TID #100 11/21/21 Test strips) strips lidocaine 5 % topical patch 1 patch topical DAILY #30 ea 11/21/21 ibuprofen 600 mg tablet 600 mg PO Q8H PRN pain #30 tabs 12/12/21 pyridoxine (vitamin B6) 100 mg 100 mg PO DAILY 90 days #90 tabs 12/30/21 tablet metformin 1,000 mg tablet 1,000 mg PO BID #180 tabs 01/03/22 cyanocobalamin (vitamin B-12) 1,000 mcg IM Q4W #3 mL 03/24/22 1,000 mcg/mL injection solution ergocalciferol (vitamin D2) 1,250 1,250 mcg PO QWEEK #12 caps 03/24/22 mcg (50,000 unit) capsule Ventolin HFA 90 mcg/actuation 2 puff inhalation Q6H PRN 04/14/22 aerosol inhaler (albuterol sulfate) bronchospasm #18 grams rosuvastatin 40 mg tablet (Crestor) 40 mg PO DAILY 90 days #90 tabs 04/14/22 omeprazole 20 mg capsule,delayed 20 mg PO DAILY 90 days #90 caps 04/20/22 release gabapentin 400 mg capsule 400 mg PO TID 30 days #90 caps 06/06/22 zolpidem 10 mg tablet 10 mg PO BEDTIME PRN insomnia 30 06/26/22 days #30 tabs oxycodone 30 mg tablet 30 mg PO Q6H PRN pain 28 days #112 07/12/22 tabs lisinopril 20 mg tablet 20 mg PO DAILY #90 tabs 07/14/22 naproxen 500 mg tablet 500 mg PO BID PRN pain 30 days #60 07/14/22 tabs cyclobenzaprine 5 mg tablet 5 mg PO TID PRN neck pain 7 days 07/26/22 #21 tabs Allergies Allergy/AdvReac Type Severity Reaction Status Date / Time No Known Allergies Allergy Verified 07/12/22 12:53 Review of Systems Constitutional: Constitutional: Reports no additional constitutional complaints, Denies chills, Denies fever(s) and Denies night sweats Eyes: Eyes: Reports no additional eye complaints, Denies blurry vision, Denies change in vision, Denies diplopia, Denies eye discharge, Denies loss of vision and Denies eye pain ENT: Denies dizziness and Reports neck pain Cardiovascular: Cardiovascular: Reports no additional cardiovascular complaints, Denies chest pain, Denies lightheadedness, Denies Loss of Consciousness and Denies dyspnea Respiratory: Respiratory: Reports no additional respiratory complaints and Denies dyspnea Gastrointestinal: Gastrointestinal: Reports no additional gastrointestinal complaints, Denies abdominal pain, Denies melena, Denies hematochezia, Denies change in bowel habits and Denies change in stool character Genitourinary: Genitourinary: Denies hematuria, Denies urinary frequency, Denies dysuria, Denies urinary incontinence, Denies urinary hesitancy and Denies urinary urgency Musculoskeletal: Musculoskeletal: Reports no additional musculoskeletal complaints, Reports neck pain, Denies numbness and Denies tingling Neurologic: Denies dizziness, Denies loss of vision, Denies numbness and Denies tingling Psychiatric: Psychiatric: Reports no additional psychiatric complaints Endocrine: Endocrine: Reports no additional endocrine complaints Hematologic/Lymphatic: Hematologic/Lymphatic: Reports no additional hematologic/lymphatic complaints Allergic/Immunologic: Allergic/Immunologic: Reports no additional allergic/immunologic complaints PMFSH Past Medical History Attestation statement: The following information was validated with the patient. Source: old records reviewed and nursing notes reviewed Medical History Abnormal bruising Anxiety Asthma Cervical spondylosis with radiculopathy Diabetes mellitus GERD (gastroesophageal reflux disease) Hyperlipidemia Hypertension, essential, benign Insomnia Iron deficiency anemia, unspecified Neuropathy Obesity (BMI 30-39.9) Rheumatoid arthritis Ureterolithiasis Varicose veins of bilateral lower extremities with pain Venous insufficiency of both lower extremities Vitamin B12 deficiency Vitamin D deficiency Surgical History History of arthroplasty of left ankle History of arthroplasty of right ankle History of arthroplasty of right knee (~2008) History of surgery on left wrist History of surgery on right wrist Hx of lithotripsy S/P VANESSA-BSO (total abdominal hysterectomy and bilateral salpingo-oophorectomy) Family History Family History Father Chronic mental illness Mother Diabetes Hypertension Stroke Sister Heart disease Diabetes Social History Social History Household Members: Family Housing: Apartment Alcohol intake: former Patient Tobacco Use Status: Former Tobacco user Quit Date: 2014 Years Smoked: quit 6 years ago e-Cigarette/Vaping Use: Never Used Second Hand Smoke Exposure: No service: No Current occupational status: disabled Cognitive needs: No (cane) Hearing needs: No Vision needs: Yes (glasses) Physical Exam ED Vital Signs: Vital Signs - 24 hr 07/26/22 08:02 Temperature 98.4 F Pulse Rate 94 Respiratory Rate 18 Blood Pressure 142/87 H Pulse Oximetry 99 Oxygen Delivery Method Room Air BMI result Body Mass Index 33.7 Const General: cooperative, no acute distress, alert and awake Nutritional Appearance: well nourished Orientation/consciousness: patient oriented x3 Limitations: no limitations HENMT Head: Yes normal to inspection and Yes atraumatic Ears: hearing grossly normal bilaterally and external ears normal General nose exam: Normal external nose present, no nasal discharge noted and no epistaxis Face and sinus: Yes normal facial exam, No abrasion and No laceration Mouth: Normal oral and palatal mucosa present, no drooling and no muffled voice Eyes General: appearance normal, both eyes and all related structures Periorbital: periorbital findings normal Eyelids: Yes eyelids normal Conjunctivae: conjunctivae normal Pupils: Equal, round and reactive pupils present EOM: EOMs intact bilaterally Neck Neck: Yes normal visual inspection, Yes full ROM and Yes no lymphadenopathy Chest Chest palpation & inspection: normal inspection of the chest Resp Effort & Inspection: normal respiratory effort and able to speak in complete sentences Auscultation: clear to auscultation bilaterally Cardio Rate: regular rate Rhythm: regular rhythm GI Inspection: Yes normal to inspection Neuro General: patient oriented x3 and moves all extremities Cranial nerves: Yes Equal, round and reactive pupils present Cognition (Neuro): normal cognition Motor exam (neuro): 5/5 motor strength present throughout Sensory Exam: Normal double simultaneous stimulation for sensation Coordination: [id number] test normal Extrem General: Yes normal to inspection, Yes full ROM and Yes capillary refill normal Psych Appearance: grossly normal Mental Status: mental status grossly normal Affect: normal affect Attitude: cooperative Thought process: Normal thought process present Thought content: Normal thought content present Insight: Good insight present (Psych) Medical Decision Making Medical Decision Making MDM Narrative: Patient is a 62 year old assigned female at with a history of DM presenting to the emergency department today with left sided neck pain. Patient's physical exam was unremarkable. Patient's clinical presentation is most consistent with cervical radiculopathy. I explained my physical exam findings to the patient. I answered all questions asked by the patient. Patient received IM Toradol and PO Flexeril which she stated helped her symptoms significantly. I stressed the importance of the patient taking her medication as prescribed. I stressed the importance of the patient following up with her primary care provider and a certified medical coding specialist. I stressed the importance of the patient returning to the emergency department immediately if her symptoms were to worsen or if she were to develop any dizziness, shortness of breath, difficulty breathing, chest pain, blurry vision, loss of vision, nausea, vomiting, abdominal pain, fever, chills, back pain, or any other complaints. Patient verbalized agreement and understanding with this treatment plan and discharge. Differential Diagnosis Differential Diagnoses: The differential diagnosis associated with the presentation includes cervical radiculopathy, neck pain Discharge Plan Discharge Clinical Impression: Cervical radiculopathy Patient Disposition: Home, Self-Care Instructions: Cervical Radiculopathy (ED) Additional Instructions: Follow up with your primary care provider and certified medical coding specialist. Return to the emergency department immediately if your symptoms worsen or if you develop any dizziness, shortness of breath, difficulty breathing, chest pain, blurry vision, loss of vision, nausea, vomiting, abdominal pain, fever, chills, back pain, or any other complaints. Prescriptions: New cyclobenzaprine 5 mg tablet 5 mg PO TID PRN (Reason: neck pain) 7 Days Qty: 21 0RF No Action nystatin [Nystop] 100,000 unit/gram powder 1 appl topical TID Qty: 60 1RF hydrochlorothiazide 25 mg tablet 25 mg PO DAILY Qty: 90 1RF lidocaine 5 % adhesive patch,medicated 1 patch topical DAILY Qty: 30 0RF Rx Instructions: leave on most painful area for up to 12 hrs FreeStyle Test Strip 1 strip miscellaneous TID Qty: 100 3RF ibuprofen 600 mg tablet 600 mg PO Q8H PRN (Reason: pain) Qty: 30 0RF metformin 1,000 mg tablet 1,000 mg PO BID Qty: 180 0RF cyanocobalamin (vitamin B-12) 1,000 mcg/mL solution 1,000 mcg IM Q4W Qty: 3 2RF ergocalciferol (vitamin D2) 1,250 mcg (50,000 unit) capsule 1,250 mcg PO QWEEK Qty: 12 5RF omeprazole 20 mg capsule,delayed release(DR/EC) 20 mg PO DAILY 90 Days Qty: 90 1RF gabapentin 400 mg capsule 400 mg PO TID 30 Days Qty: 90 3RF zolpidem 10 mg tablet 10 mg PO BEDTIME PRN (Reason: insomnia) 30 Days Qty: 30 1RF naproxen 500 mg tablet 500 mg PO BID PRN (Reason: pain) 30 Days Qty: 60 0RF Rx Instructions: Take with food and only as needed lisinopril 20 mg tablet 20 mg PO DAILY Qty: 90 3RF ezetimibe [Zetia] 10 mg tablet 10 mg PO DAILY albuterol sulfate 2.5 mg /3 mL (0.083 %) solution for nebulization 2.5 mg inhalation Q4-6H PRN (Reason: Wheezing) folic acid 1 mg tablet 1 mg PO DAILY acetaminophen [Acetaminophen Pain Relief] 500 mg tablet 1,000 mg PO Q6H PRN (Reason: pain) Qty: 60 0RF rosuvastatin [Crestor] 40 mg tablet 40 mg PO DAILY 90 Days Qty: 90 3RF albuterol sulfate [Ventolin HFA] 90 mcg/actuation HFA aerosol inhaler 2 puff inhalation Q6H PRN (Reason: bronchospasm) Qty: 18 5RF oxycodone 30 mg tablet 30 mg PO Q6H PRN (Reason: pain) 28 Days Qty: 112 0RF alendronate 70 mg tablet 70 mg PO QWEEK Rasuvo (PF) 20 mg/0.4 mL auto-injector subcut pyridoxine (vitamin B6) 100 mg tablet 100 mg PO DAILY 90 Days Qty: 90 1RF Referrals: [facility] [Provider Group] (Call to establish and follow up with a certified medical coding specialist. ) Michael Vogel MD [Primary Care Provider] - Print Language: Faroese
[2022-07-26] MEDS: Ketorolac Tromethamine 15 MG/ML VIAL IM (08:49)
[2022-07-26] MEDS: Cyclobenzaprine HCl 5 MG TABLET PO (08:49)
== END 2022-07-26 08:55 | disposition home or self-care (01) ==
PROVIDERS: Emergency Provider Emergency Medicine; PCP Internal Medicine
DX: M54.12 Radiculopathy, cervical region (principal); E11.9 Type 2 diabetes mellitus without complications; I10 Essential (primary) hypertension; E78.5 Hyperlipidemia, unspecified; Z79.899 Other long term (current) drug therapy; Z79.02 Long term (current) use of antithrombotics/antiplatelets; Z79.84 Long term (current) use of oral hypoglycemic drugs
CPT/HCPCS: 96372; 99283; 99284; J1885

== ENCOUNTER 2022-07-28 08:21 | Emergency (ER) | payer OTHER, SELFPAY ==
--- NOTE | ~2022-07-28 | XR_ITS ---
EXAMINATION: XR CERVICAL SPINE CLINICAL INFORMATION: Radiculopathy down left arm COMPARISON: July 11, 2016 and April 06, 2014 TECHNIQUE: 4 views of the cervical spine were obtained. FINDINGS: No abnormal prevertebral soft tissue swelling is present. Alignment unremarkable. There is chronic atlantoaxial articulation degenerative change with loss of joint space and prominent spurring and sclerosis involving the articulation of the dens and anterior arch of C1 and the right lateral masses. There is some mild narrowing of the C6-7 disc space. There appears to be some mild posterior marginal spurring present at the C4-5 and C5-6 levels. Bilateral carotid artery calcifications present. XR/XR cervical spine 3V IMPRESSION: No acute cervical spine fracture. Cervical spondylosis most significant at the C1-2 level.
[2022-07-28 08:24] VITALS: BP 147/93; PULSE 115; RESP 18; TEMP 36.7; O2SAT 98; BMI 33.7
--- NOTE | 2022-07-28 08:47 | ED.GENADULT ---
HPI - General Adult General Chief complaint: Headache Stated complaint: blurry vision, pain Time Seen by Provider: 07/28/22 08:46 Source: patient Mode of arrival: ambulatory Limitations: no limitations History of Present Illness HPI narrative: Patient seen on the with neck pain and radicular pain down the left arm. She was having severe pain and then got dizzy and lightheaded Onset (ago): day(s) Related Data Home Medications Medication Instructions Recorded Confirmed albuterol sulfate 2.5 mg/3 mL 2.5 mg inhalation Q4-6H PRN 11/27/19 07/12/22 (0.083 %) solution for nebulization Wheezing folic acid 1 mg tablet 1 mg PO DAILY 11/27/19 07/12/22 alendronate 70 mg tablet 70 mg PO QWEEK 11/17/20 07/12/22 ezetimibe 10 mg tablet (Zetia) 10 mg PO DAILY 11/14/21 07/12/22 methotrexate (PF) 20 mg/0.4 mL mg subcut 12/30/21 07/12/22 subcutaneous auto-injector (Rasuvo (PF)) Previous Rx's Medication Instructions Recorded acetaminophen 500 mg tablet 1,000 mg PO Q6H PRN pain #60 tabs 03/23/21 (Acetaminophen Pain Relief) Nystop 100,000 unit/gram topical 1 appl topical TID #60 grams 10/21/21 powder (nystatin) hydrochlorothiazide 25 mg tablet 25 mg PO DAILY #90 tabs 10/28/21 blood sugar diagnostic (FreeStyle 1 strip miscellaneous TID #100 11/21/21 Test strips) strips lidocaine 5 % topical patch 1 patch topical DAILY #30 ea 11/21/21 ibuprofen 600 mg tablet 600 mg PO Q8H PRN pain #30 tabs 12/12/21 pyridoxine (vitamin B6) 100 mg 100 mg PO DAILY 90 days #90 tabs 12/30/21 tablet metformin 1,000 mg tablet 1,000 mg PO BID #180 tabs 01/03/22 cyanocobalamin (vitamin B-12) 1,000 mcg IM Q4W #3 mL 03/24/22 1,000 mcg/mL injection solution ergocalciferol (vitamin D2) 1,250 1,250 mcg PO QWEEK #12 caps 01/27/23 mcg (50,000 unit) capsule Ventolin HFA 90 mcg/actuation 2 puff inhalation Q6H PRN 04/14/22 aerosol inhaler (albuterol sulfate) bronchospasm #18 grams rosuvastatin 40 mg tablet (Crestor) 40 mg PO DAILY 90 days #90 tabs 04/14/22 omeprazole 20 mg capsule,delayed 20 mg PO DAILY 90 days #90 caps 04/20/22 release gabapentin 400 mg capsule 400 mg PO TID 30 days #90 caps 06/06/22 zolpidem 10 mg tablet 10 mg PO BEDTIME PRN insomnia 30 06/26/22 days #30 tabs oxycodone 30 mg tablet 30 mg PO Q6H PRN pain 28 days #112 07/12/22 tabs lisinopril 20 mg tablet 20 mg PO DAILY #90 tabs 07/14/22 naproxen 500 mg tablet 500 mg PO BID PRN pain 30 days #60 07/14/22 tabs cyclobenzaprine 5 mg tablet 5 mg PO TID PRN neck pain 7 days 07/26/22 #21 tabs Allergies Allergy/AdvReac Type Severity Reaction Status Date / Time No Known Allergies Allergy Verified 07/12/22 12:53 Review of Systems Review of Systems: Yes all other systems are reviewed and are negative ENT: Comments: neck pain Musculoskeletal: Comments: neckpain PMFSH Past Medical History Medical History Abnormal bruising Anxiety Asthma Cervical spondylosis with radiculopathy Diabetes mellitus GERD (gastroesophageal reflux disease) Hyperlipidemia Hypertension, essential, benign Insomnia Iron deficiency anemia, unspecified Neuropathy Obesity (BMI 30-39.9) Rheumatoid arthritis Ureterolithiasis Varicose veins of bilateral lower extremities with pain Venous insufficiency of both lower extremities Vitamin B12 deficiency Vitamin D deficiency Surgical History History of arthroplasty of left ankle History of arthroplasty of right ankle History of arthroplasty of right knee (~2008) History of surgery on left wrist History of surgery on right wrist Hx of lithotripsy S/P VANESSA-BSO (total abdominal hysterectomy and bilateral salpingo-oophorectomy) Family History Family History Father Chronic mental illness Mother Diabetes Hypertension Stroke Sister Heart disease Diabetes Social History Social History Household Members: Family Housing: Apartment Alcohol intake: never Patient Tobacco Use Status: Former Tobacco user Quit Date: 2014 Smoked: quit 6 years ago Smoked in Last 30 Days: No e-Cigarette/Vaping Use: Never Used Second Hand Smoke Exposure: No Use of substances other than those prescribed or required for medical reasons: No Advance Directives: No Advance Directives Information Provided: Yes Patient : No service: No Current occupational status: disabled Cognitive needs: No (cane) Hearing needs: No Vision needs: Yes (glasses) Physical Exam ED Vital Signs: Vital Signs - 24 hr 07/28/22 08:24 07/28/22 09:36 Temperature 98.1 F 98.7 F Pulse Rate 115 H 87 Respiratory Rate 18 18 Blood Pressure 147/93 H 140/79 H Pulse Oximetry 98 98 Oxygen Delivery Method Room Air Room Air BMI result Body Mass Index 33.7 Const Other: female looking older than stated age Nutritional Appearance: average body habitus Orientation/consciousness: oriented to person and patient oriented x3 Limitations: no limitations HENMT Head: Yes normal to inspection Ears: external ears normal General nose exam: Normal external nose present Mouth: Normal oral and palatal mucosa present and oropharynx normal Throat: Yes posterior oropharynx normal Eyes General: appearance normal, both eyes and all related structures Neck Neck: Yes normal visual inspection Chest Chest palpation & inspection: normal inspection of the chest Resp Auscultation: clear to auscultation bilaterally Cardio Jugular venous distension: no JVD Rate: regular rate Rhythm: regular rhythm Heart sounds: S1 normal heart sound present and S2 normal heart sound present GI Inspection: Yes normal to inspection Palpation (GI): Soft to palpation, nontender and No hepatosplenomegaly present Auscultation: normal bowel sounds General: Yes no CVA tenderness Back/Spine/Pelvis Back: no CVA tenderness Skin General skin exam: no rashes or lesions noted Neuro General: oriented to person and patient oriented x3 Cranial nerves: Yes CN's II-XII intact bilaterally Motor exam (neuro): 5/5 motor strength present throughout Extrem Other: multiple surgeries to hands and contraction to hands and fingers Psych Appearance: grossly normal Course Reevaluation(s) Reevaluation #1: Patient with classic radiculopathy will dc with follow up with physical therapy Time: 10:33 Medications Administered Discontinued Medications Generic Name Dose Route Start Last Admin Trade Name Freq PRN Reason Stop Dose Admin Ketorolac Tromethamine 60 mg 07/28/22 08:50 07/28/22 09:18 Ketorolac Tromethamine 60 Mg/2 Ml Vial IM 07/28/22 08:51 60 mg ONCE ONE Administration Medical Decision Making Differential Diagnosis Differential Diagnoses: The differential diagnosis associated with the presentation includes (headache, cervical radiculopathy, vasovagal) Independent Interpretation I performed an independent interpretation of an: Plain X-Ray (cervical spine moderate djd) External Record Review External record reviewed: Outpatient record Chronic Conditions Patient?s care impacted by: Other (rheumatoid arthritis) Discharge Plan Discharge Clinical Impression: Cervical spondylosis with radiculopathy, Rheumatoid arthritis Patient Disposition: Home, Self-Care Instructions: Cervical Radiculopathy (ED) Additional Instructions: Must follow up with physical therapy Prescriptions: No Action nystatin [Nystop] 100,000 unit/gram powder 1 appl topical TID Qty: 60 1RF hydrochlorothiazide 25 mg tablet 25 mg PO DAILY Qty: 90 1RF lidocaine 5 % adhesive patch,medicated 1 patch topical DAILY Qty: 30 0RF Rx Instructions: leave on most painful area for up to 12 hrs FreeStyle Test Strip 1 strip miscellaneous TID Qty: 100 3RF ibuprofen 600 mg tablet 600 mg PO Q8H PRN (Reason: pain) Qty: 30 0RF metformin 1,000 mg tablet 1,000 mg PO BID Qty: 180 0RF cyanocobalamin (vitamin B-12) 1,000 mcg/mL solution 1,000 mcg IM Q4W Qty: 3 2RF ergocalciferol (vitamin D2) 1,250 mcg (50,000 unit) capsule 1,250 mcg PO QWEEK Qty: 12 5RF omeprazole 20 mg capsule,delayed release(DR/EC) 20 mg PO DAILY 90 Days Qty: 90 1RF gabapentin 400 mg capsule 400 mg PO TID 30 Days Qty: 90 3RF zolpidem 10 mg tablet 10 mg PO BEDTIME PRN (Reason: insomnia) 30 Days Qty: 30 1RF naproxen 500 mg tablet 500 mg PO BID PRN (Reason: pain) 30 Days Qty: 60 0RF Rx Instructions: Take with food and only as needed lisinopril 20 mg tablet 20 mg PO DAILY Qty: 90 3RF ezetimibe [Zetia] 10 mg tablet 10 mg PO DAILY cyclobenzaprine 5 mg tablet 5 mg PO TID PRN (Reason: neck pain) 7 Days Qty: 21 0RF albuterol sulfate 2.5 mg /3 mL (0.083 %) solution for nebulization 2.5 mg inhalation Q4-6H PRN (Reason: Wheezing) folic acid 1 mg tablet 1 mg PO DAILY acetaminophen [Acetaminophen Pain Relief] 500 mg tablet 1,000 mg PO Q6H PRN (Reason: pain) Qty: 60 0RF rosuvastatin [Crestor] 40 mg tablet 40 mg PO DAILY 90 Days Qty: 90 3RF albuterol sulfate [Ventolin HFA] 90 mcg/actuation HFA aerosol inhaler 2 puff inhalation Q6H PRN (Reason: bronchospasm) Qty: 18 5RF oxycodone 30 mg tablet 30 mg PO Q6H PRN (Reason: pain) 28 Days Qty: 112 0RF alendronate 70 mg tablet 70 mg PO QWEEK Rasuvo (PF) 20 mg/0.4 mL auto-injector subcut pyridoxine (vitamin B6) 100 mg tablet 100 mg PO DAILY 90 Days Qty: 90 1RF Referrals: Michael Vogel MD [Primary Care Provider] - 5 days
[2022-07-28] MEDS: Ketorolac Tromethamine 60 MG/2 ML VIAL IM (09:18)
[2022-07-28 09:36] VITALS: BP 140/79; PULSE 87; RESP 18; TEMP 37.1; O2SAT 98
--- NOTE | 2022-07-28 09:40 | MHC.EDTECH ---
Patient was complaining about neck pain. She was offered an ice pack and advised to leave it on for 20 mins. patient satated her understanding and thanks.
[2022-07-28 11:46] VITALS: BP 122/91; PULSE 100; RESP 16; TEMP 37; O2SAT 100
== END 2022-07-28 11:51 | disposition home or self-care (01) ==
PROVIDERS: Emergency Provider Emergency Medicine; PCP Internal Medicine
DX: M47.812 Spondylosis without myelopathy or radiculopathy, cervical region (principal); E11.9 Type 2 diabetes mellitus without complications; I10 Essential (primary) hypertension; E78.5 Hyperlipidemia, unspecified; Z87.891 Personal history of nicotine dependence; Z79.84 Long term (current) use of oral hypoglycemic drugs; Z79.899 Other long term (current) drug therapy
CPT/HCPCS: 72040; 96372; 99284; J1885

== ENCOUNTER 2022-08-21 14:30 | Outpatient (REF) | payer OTHER, SELFPAY ==
[2022-08-22 18:47] LABS: Complement C3 146 mg/dL (83-193)
[2022-08-24 22:44] LABS: Myeloperoxidase Antibody <1.0 AI
[2022-08-25 07:59] LABS: Neutrophil Cyto Ab Screen ATYP P-ANCA POS (NEGATIVE)
[2022-08-25 14:53] LABS: Anti Nuclear Antibody Screen POSITIVE (NEGATIVE)
== END 2022-08-21 14:31 | disposition home or self-care (01) ==
LOC: HO.LAB 14:30
PROVIDERS: Visit Provider Internal Medicine Hypertension Specialist
DX: M06.9 Rheumatoid arthritis, unspecified (principal)
CPT/HCPCS: 36415; 86021; 86036; 86037; 86038; 86039; 86160

== ENCOUNTER 2022-09-25 08:34 | Outpatient (AMB) | payer OTHER, SELFPAY ==
--- NOTE | 2022-09-25 08:45 | AM.OFFVISNUR ---
Intake Intake Visit Reasons: B12 Allergies No Known Allergies Allergy (Verified 09/07/22 15:23) Office Meds cyanocobalamin (vitamin B-12) Performing Provider: Michael Vogel MD Administered by: Isela Ozuna RN on 09/25/22 08:45 Dose Route Admin Location Lot Number Expiration Date NDC Apprentice 1,000 mcg IM left deltoid [id number] 09/25/23 24848-155-45 [facility] Coding Diagnoses Assessment & Plan Assessment & Plan Orders: Orders AMB Vitamin B12 Injection Patient Supplied Today E53.8 - Deficiency of other specified B group vitamins
== END 2022-09-25 08:46 | disposition home or self-care (01) ==
PROVIDERS: PCP Internal Medicine; Visit Provider Internal Medicine
DX: E53.8 Deficiency of other specified B group vitamins (principal)
CPT/HCPCS: 96372; J3420

== ENCOUNTER 2022-10-25 09:23 | Outpatient (AMB) | payer OTHER, SELFPAY ==
--- NOTE | 2022-10-25 09:29 | AM.OFFVISNUR ---
Intake Intake Visit Reasons: B12 Allergies No Known Allergies Allergy (Verified 10/25/22 09:31) Office Meds cyanocobalamin (vitamin B-12) Performing Provider: Michael Vogel MD Administered by: Isela Ozuna RN on 10/25/22 09:40 Dose Route Admin Location Lot Number Expiration Date NDC Rn Med Surg 1,000 mcg IM left deltoid [id number] 09/26/23 07945-115-18 [facility] Coding Diagnoses Assessment & Plan Assessment & Plan Orders: Orders AMB Vitamin B12 Injection Patient Supplied Today E53.8 - Deficiency of other specified B group vitamins
== END 2022-10-25 10:04 | disposition home or self-care (01) ==
PROVIDERS: PCP Internal Medicine; Visit Provider Internal Medicine
DX: E53.8 Deficiency of other specified B group vitamins (principal)
CPT/HCPCS: 96372; J3420

== ENCOUNTER 2022-10-25 09:23 | Outpatient (AMB) | payer OTHER, SELFPAY ==
[2022-10-25 09:30] VITALS: BP 138/82; PULSE 93; O2SAT 98; BMI 33.0
--- NOTE | 2022-10-25 09:30 | A.OFFPC_ITS ---
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 Required: No Accompanied by: Self / Same As Patient Allergies No Known Allergies Allergy (Verified 10/25/22 10:11) Medication List - Last Reconciled 10/25/22 by Michael Vogel MD acetaminophen (Acetaminophen Pain Relief) 1,000 mg (2 x 500 mg) PO Q6H PRN albuterol sulfate 2.5 mg inhalation Q4-6H PRN alendronate 70 mg PO QWEEK blood sugar diagnostic (FreeStyle Test strips) 1 strip miscellaneous TID cyanocobalamin (vitamin B-12) 1,000 mcg IM Q4W ergocalciferol (vitamin D2) 1,250 mcg PO QWEEK ezetimibe (Zetia) 10 mg PO DAILY folic acid 1 mg PO DAILY gabapentin 400 mg PO TID 30 days hydrochlorothiazide 25 mg PO DAILY ibuprofen 600 mg PO Q8H PRN lidocaine 5% 1 patch topical DAILY lisinopril 20 mg PO DAILY metformin 1,000 mg PO BID methotrexate (PF) (Rasuvo (PF)) 20 mg subcut QWEEK naproxen 500 mg PO BID PRN 30 days Nystop (nystatin) 1 appl topical TID NS omeprazole 20 mg PO DAILY 90 days oxycodone 30 mg PO Q6H PRN 28 days pyridoxine (vitamin B6) 100 mg PO DAILY 90 days rosuvastatin (Crestor) 40 mg PO DAILY 90 days Ventolin HFA 90 mcg/actuation (albuterol sulfate) 2 puffs inhalation Q6H PRN NS zolpidem 10 mg PO BEDTIME PRN 30 days Tobacco use date assessed: 10/25/22 Dental Screening Dental Screen Date: 10/25/22 Did you have a dental visit in the last 12 months?: No Did you have a dental problem in the last 6 months where you did not have access to dental care?: No Was dental information given to patient?: No HPI neuropathy, HTN, DM, hyperlipidemia HPI Details Patient comes in today for her follow up visit States that she has been in a lot of pain for the past few weeks as she has not been able to get her Oxycodone Rx refilled this past month - insurance is now again requiring a prior authorization for her Rx She was also seen by Dr. Kennedy at the end of July 2022 for rheumatology follow up for her RA and multiple joint pains Had repeat lumbar spine x-rays done last week that showed some progression of her lumbar degenerative disc disease Has been advised that kyphoplasty may be an option as patient has been steadfastly declining recommendations for facet injections to help her manage her chronic back pain States that she is again scheduled to start physical therapy for her low back pain and joint pains next month on 11/14/22 She denies any headaches or dizziness Denies any chest pains, no SOB No nausea/vomiting, no abdominal pain No change in bowel habits noted Had some follow up labs done last month when she went for labs for oncology but no fasting cholesterol levels were included back then [facility] Medical History Abnormal bruising Anxiety Asthma Cervical spondylosis with radiculopathy Diabetes mellitus GERD (gastroesophageal reflux disease) Hyperlipidemia Hypertension, essential, benign Insomnia Iron deficiency anemia, unspecified Neuropathy Obesity (BMI 30-39.9) Rheumatoid arthritis Ureterolithiasis Varicose veins of bilateral lower extremities with pain Venous insufficiency of both lower extremities Vitamin B12 deficiency Vitamin D deficiency Surgical History History of arthroplasty of left ankle History of arthroplasty of right ankle History of arthroplasty of right knee (~2008) History of surgery on left wrist History of surgery on right wrist Hx of lithotripsy S/P VANESSA-BSO (total abdominal hysterectomy and bilateral salpingo-oophorectomy) Family History Father Chronic mental illness Mother Diabetes Hypertension Stroke Sister Heart disease Diabetes Social History Household Members: Family Housing: Apartment Alcohol intake: never Patient Tobacco Use Status: Former Tobacco user Quit Date: 2014 Years Smoked: quit 6 years ago e-Cigarette/Vaping Use: Never Used Second Hand Smoke Exposure: No service: No Current occupational status: disabled Cognitive needs: No (cane) Hearing needs: No Vision needs: Yes (glasses) Questionnaire PHQ-9 Over the last 2 weeks, how often have you been bothered by any of the following problems? 1. Little interest or pleasure in doing things: not at all 2. Feeling down, depressed, or hopeless: not at all 3. Trouble falling or staying asleep, or sleeping too much: not at all 4. Feeling tired or having little energy: not at all 5. Poor appetite or overeating: not at all 6. Feeling bad about yourself - or that you are a failure or have let yourself or your family down: not at all 7. Trouble concentrating on things, such as reading the newspaper or watching television: not at all 8. Moving or speaking so slowly that other people could have noticed. Or the opposite - being so fidgety or restless that you have been moving around a lot more than usual: not at all 9. Thoughts that you would be better off or of hurting yourself in some way: not at all Total score: 0 Depression Screening Interpretation: Negative 08884 - PHQ-9 Billing: Yes Source: Developed by Drs. Fredy Mota, Ayanna Sharp, Gaston Garcia and colleagues, with an educational stephanie from [employer]. Thrive Questionnaire Date Thrive assessed: 10/25/22 I am a: Patient What is your living situation today?: I have a steady place to live Within the past 12 months, did the food you bought not last and you didn't have the money to get more?: Never true Within the past 12 months, did you worry whether your food would run out before you got money to buy more?: Never true Do you have trouble paying for medicines?: No Do you have trouble getting transportation to medical appointments?: No Do you have trouble paying your heating and electricity bill?: No Do you have trouble taking care of your child, family member or friend?: No Do you have trouble with day-to-day activities such as bathing, preparing meals, shopping, managing finances, etc.?: No Are you currently unemployed and looking for a job?: No Are you interested in more education?: No Please select the resources that you would like help with: None Currently or been in a relationship where the following occur: no concerns reported AUDIT C Alcohol Use Questionnaire (AUDIT-C) 1. How often do you have a drink containing alcohol?: Never 3. How often do you have six or more drinks on one occasion?: Never Total Score: 0 Score Reviewed/Action Taken: Yes BALJIT-7 AMB Questionnaire BALJIT-7 Date BALJIT - 7 assessed: 10/25/22 Feeling nervous, anxious, or on edge: 0 = Not at all Not being able to stop or control worryin = Not at all Worrying too much about different things: 0 = Not at all Trouble relaxin = Not at all Being so restless that it is hard to sit still: 0 = Not at all Becoming easily annoyed or irritable: 0 = Not at all Feeling afraid as if something awful might happen: 0 = Not at all Total BALJIT-7 score (0-4 normal; 5-9 mild; 10-14 moderate; 15-21 severe): 0 Source: Developed by Drs. Fredy Mota, Ayanna Sharp, Gaston Garcia and colleagues, with an educational stephanie from [employer]. BALJIT-7 Assessment Billing BALJIT-7 Assessment Tool: BALJIT-7 Assessment 70187 Review of Systems Const Denies chills, Reports fatigue, Denies fever(s) and Denies headache(s) ENT Denies dysphagia, Denies dizziness, Denies otalgia, Denies headache(s), Reports neck pain, Denies odynophagia and Denies sore throat Card Denies chest pain, Denies palpitations and Denies dyspnea Resp Denies cough and Denies dyspnea GI Denies abdominal pain, Denies constipation, Denies dysphagia, Denies heartburn, Denies diarrhea, Denies nausea, Denies odynophagia and Denies vomiting Denies nocturia and Denies dysuria Musc Reports back pain (over the lumbar spine - chronic), Reports arthralgias (involving multiple joints; increased pain over the right hip), Reports neck pain and Reports tingling (over both lower extremities, on and off) Skin/Breast Denies rash Neuro Denies dizziness, Denies headache(s), Reports radicular pain (in both lower extremities) and Reports tingling (over both lower extremities, on and off) Endo Reports fatigue and Denies palpitations Physical exam (Primary Care) Vital Signs: Last Vital Signs Pulse 93 10/25/22 09:30 BP 138/82 10/25/22 09:30 Pulse Ox 98 10/25/22 09:30 Oxygen Delivery Method Room Air 10/25/22 09:30 BMI result Body Mass Index 33.0 Tobacco/Smoking Status: Tobacco use Status Tobacco use date assessed 10/25/22 10/25/22 09:34 Patient Tobacco Use Status Former Tobacco user 10/25/22 09:34 e-Cigarette/Vaping Use Never Used 10/25/22 09:34 PHQ-9: PHQ-9 Score PHQ-9: Total score 0 10/25/22 11:34 Depression Screening Interpretation: Negative Thrive Assessment: Date of Thrive Assessment Date Thrive assessed 10/25/22 10/25/22 09:34 Currently or been in a relationship where the following occur: no concerns reported Const General: no acute distress and alert HENMT Ears: TM's normal bilaterally and EAC's normal Throat: Yes posterior oropharynx normal and Yes tonsils normal (no TP congestion noted) Neck Neck: Yes no lymphadenopathy and Yes supple Resp Auscultation: clear to auscultation bilaterally, no rales and no wheezes Cardio Rate: regular rate Rhythm: regular rhythm Heart sounds: no murmurs GI Palpation (GI): Soft to palpation, nontender and no guarding Auscultation: normal bowel sounds Back/Spine/Pelvis Cervical Spine: Cervical spine tenderness Thoracic/Lumbar Spine: paraspinal muscle tenderness on the left in the lower thoracic and in the upper thoracic and lumbar spinal tenderness Skin Rashes: no rashes Extrem General: Yes no clubbing, cyanosis or edema Right upper extremity: Extremity exam: right hand Details: tenderness Left upper extremity: hand Details: tenderness Results Reviewed Results Reviewed: Laboratory Tests 09/07/22 09/07/22 15:20 15:20 WBC 13.4 H Hgb 11.7 L Hct 36.5 L Plt Count 332 Sodium 144 Potassium 4.0 Creatinine 1.08 Estimated GFR 51 Random Glucose 125 H Calcium 10.3 H D AST 15 ALT 12 Assessment and Plan Assessment & Plan (1) Diabetes mellitus: Code(s): E11.9 - Type 2 diabetes mellitus without complications Qualifiers: Diabetes mellitus complication detail: with unspecified neuropathy Diabetes mellitus complication status: with neurologic complications Diabetes mellitus information services manager insulin use: without shelter use Diabetes mellitus type: type 2 Qualified Code(s): E11.40 - Type 2 diabetes mellitus with diabetic neuropathy, unspecified Plan: HgbA1c was at 6.3% when last checked in March 2022 (in-office HgbA1c was at 7.1% previously) - goal is < 7.0% Reinforced diabetic diet Continue Metformin 1000 mg BID (2) Hyperlipidemia: Code(s): E78.5 - Hyperlipidemia, unspecified Qualifiers: Hyperlipidemia type: pure hypercholesterolemia Qualified Code(s): E78.00 - Pure hypercholesterolemia, unspecified Plan: Results of her labs done last month reviewed and discussed with patient but these did not include a fasting lipid profile Patient cautioned/reminded that her LDL cholesterol increased significantly from previous (from 85 mg/dL to 170 mg/dL) on her labs back in March 2022 and we need to follow up on this KATHI Will have her get this rechecked KATHI - states that she has not yet had anything to eat this morning Reinforced low cholesterol diet Continue Rosuvastatin 20 mg QD and Ezetimibe 10 mg QD for now Will recheck her labs and fasting lipids again in 3 months for follow up (3) Hypertension, essential, benign: Code(s): I10 - Essential (primary) hypertension Plan: Reinforced low sodium diet - goal is systolic BP of at least 120 to 130 mm or less Continue HCTZ 25 mg QD and Lisinopril 20 mg QD (4) Asthma: Code(s): J45.909 - Unspecified asthma, uncomplicated Qualifiers: Asthma complication type: uncomplicated Asthma persistence: intermittent Asthma severity: mild Qualified Code(s): J45.20 - Mild intermittent asthma, uncomplicated Plan: Stable - states that she uses her Albuterol HFA inhaler only as needed (5) Iron deficiency anemia, unspecified: Code(s): D50.9 - Iron deficiency anemia, unspecified Qualifiers: Iron deficiency anemia type: inadequate dietary iron intake Qualified Code(s): D50.8 - Other iron deficiency anemias Plan: Continue IV iron Tx as needed Follow up with hematology (Dr. Anthony) as scheduled Has been referred to GI for screening colonoscopy ([place] [facility] [place] but have been unable to locate any record of this in [facility] or [facility]); she was seen last year but anesthesia recommended cardiac clearance first She has since been cleared but has not yet been scheduled and this has yet to be done Patient would like to hold off on this for now as she is currently in a lot of pain (from her kidney stones as well as over her left thoracolumbar area and inmultiple joints) - states that she will consider getting this done later when her current issues are better controlled (6) Vitamin B12 deficiency: Code(s): E53.8 - Deficiency of other specified B group vitamins Plan: Continue oral Vitamin B12 1000 mcg QD and B12 injection monthly (7) Neuropathy: Comment: Repeat NCV and EMG done in November 2017 revealed findings consistent with neuropathy Code(s): G62.9 - Polyneuropathy, unspecified Plan: Continue Gabapentin 300 mg TID Follow up with neurology as scheduled MRI of the cervical spine previously requested for was denied by insurance (8) Cervical spondylosis with radiculopathy: Code(s): M47.22 - Other spondylosis with radiculopathy, cervical region Plan: Continue Oxycodone 30 mg Q 6 hours PRN, Cyclobenzaprine 5 mg TID PRN and Lidocaine 5% ointment topically TID PRN (9) Rheumatoid arthritis: Comment: Is on Prednisone 5 mg-20 mg daily, Methotrexate tablets 2.5 mg 6 tablets once a day on Sundays. Rinvoq ER 15 mg qd has been discontinued. Code(s): M06.9 - Rheumatoid arthritis, unspecified Plan: Follow up with rheumatology (Dr. Kennedy) as scheduled Continue Prednisone 2.5 mg QD and Methotrexate injection (Rasuvo) 20 mg) once a week; was previously on Rinvoq ER 15 mg QD but this was discontinued due to side effects (diarrhea) Patient so far has failed multiple treatments for RA already - was unable to tolerate Rinvoq (diarrhea) and had poor or no clinical response to Xeljanz, Olumiant, Cimzia and Rituximab; she has also failed anti-TNF therapies, as well as Actemra, Orencia and multiple other DMARDs including Azathioprine (10) Non-traumatic compression fracture of eleventh thoracic vertebra: Code(s): M48.54XA - Collapsed vertebra, not elsewhere classified, thoracic region, initial encounter for fracture Qualifiers: Encounter type: sequela Qualified Code(s): M48.54XS - Collapsed vertebra, not elsewhere classified, thoracic region, sequela of fracture Plan: This was seen on a recent repeat lumbar spine x-rays and is a new finding - is most likely a source of her recent recurrent left mid to lower back pain and discomfort Suspect that this may have resulted from her last ESWL a few months ago She reportedly had BMD done at Dr. Kennedy's office on 05/20/2021 and her left femur T-score at the time was at -1.8 Repeat spine x-rays done last week shows some progression of her degenerative changes from before She is scheduled to start physical therapy next month on 11/14/22 States that she has been unable to get her pain med Rx refilled for the past few weeks now as insurance is again requiring a prior authorization on her Rx, which has remained the same and has been unchanged for years Have advised patient that this is likely due to her relatively high dose and is going to continue to be a recurrent issue / problem for her going forward and if she is willing to try having her dose/dosing lowered, we may be able to get her Rx expedited through quicker States that at this point, she is willing to try anything - will try lowering her Rx to Oxycodone 30 mg BID PRN - advised that she can cut her tablet in half if she does not feel that she needs to take the full 30 mg dose at any time (11) Vitamin D deficiency: Code(s): E55.9 - Vitamin D deficiency, unspecified Plan: Corrected; continue OTC Vitamin D supplements as well as her weekly 91331 units of Vitamin D2 weekly (12) GERD (gastroesophageal reflux disease): Comment: continue ppi- avoid culprits EGD- Code(s): K21.9 - Gastro-esophageal reflux disease without esophagitis Qualifiers: Esophagitis presence: without esophagitis Qualified Code(s): K21.9 - Gastro-esophageal reflux disease without esophagitis Plan: Dietary restrictions reinforced Continue Omeprazole 20 mg QD PRN (13) Venous insufficiency of both lower extremities: Code(s): I87.2 - Venous insufficiency (chronic) (peripheral) Plan: Follow up with vascular surgery (Dr. Yu Dietrich) as scheduled Has been advised to continue with conservative treatment for now due to her multiple comorbidities (14) Ureterolithiasis: Comment: S/P left ESWL a few months ago (had a 5 mm renal calculi), with resolution of symptoms Code(s): N20.1 - Calculus of ureter Plan: S/P repeat ESWL a few months ago but states that she is still experiencing recurrent pain and discomfort, and more recently, pain over her left lower throacic and lumbar area Follow up with urology as scheduled (15) Insomnia: Code(s): G47.00 - Insomnia, unspecified Qualifiers: Insomnia type: primary Qualified Code(s): F51.01 - Primary insomnia Plan: Sleep hygiene reinforced Continue Zolpidem 10 mg Q HS PRN (16) Anxiety: Code(s): F41.9 - Anxiety disorder, unspecified Plan: States that her anxiety has been controlled lately - used to take Fluoxetine but she has not been on this in a while now (17) Obesity (BMI 30-39.9): Code(s): E66.9 - Obesity, unspecified Plan: Reinforced diet/exercise as tolerated/lose weight Plan Follow up in 3 months Orders: Orders Vitamin B12 and Folate 3 Months E53.8 - Deficiency of other specified B group vitamins Comprehensive [place]. Panel Fast 3 Months E78.00 - Pure hypercholesterolemia, unspecified Hemoglobin A1c 3 Months E11.9 - Type 2 diabetes mellitus without complications Lipid Panel 3 Months E78.00 - Pure hypercholesterolemia, unspecified TSH reflex Free T4 3 Months E78.00 - Pure hypercholesterolemia, unspecified Vitamin D 25-OH Total 3 Months E55.9 - Vitamin D deficiency, unspecified Microalbumin, Random (w Creat) 3 Months E11.9 - Type 2 diabetes mellitus without complications Complete Blood Count Auto Diff 3 Months I10 - Essential (primary) hypertension UA CC w/rflx Micro + Cult 3 Months R30.0 - Dysuria Lipid Panel Today E78.00 - Pure hypercholesterolemia, unspecified Hemoglobin A1c Today E11.9 - Type 2 diabetes mellitus without complications Medications: Changed From oxycodone 30 mg PO Q6H 28 days PRN 112 tabs 0RF pain G62.9 - Polyneuropathy, unspecified, M47.22 - Other spondylosis with radiculopathy, cervical region To oxycodone 30 mg PO Q12H 28 days 56 tabs 0RF pain G62.9 - Polyneuropathy, unspecified, M47.22 - Other spondylosis with radiculopathy, cervical region Coding Level of Care Code Est Pt Level 4 (39215) Diagnoses Diabetes mellitus E11.40 Diabetes mellitus complication detail: with unspecified neuropathy Diabetes mellitus complication status: with neurologic complications Diabetes mellitus information services manager insulin use: without information services manager use Diabetes mellitus type: type 2 Hyperlipidemia E78.00 Hyperlipidemia type: pure hypercholesterolemia Hypertension, essential, benign I10 Asthma J45.20 Asthma complication type: uncomplicated Asthma persistence: intermittent Asthma severity: mild Iron deficiency anemia, unspecified D50.8 Iron deficiency anemia type: inadequate dietary iron intake Vitamin B12 deficiency E53.8 Neuropathy G62.9 Cervical spondylosis with radiculopathy M47.22 Rheumatoid arthritis M06.9 Non-traumatic compression fracture of eleventh thoracic vertebra M48.54XS Encounter type: sequela Vitamin D deficiency E55.9 GERD (gastroesophageal reflux disease) K21.9 Esophagitis presence: without esophagitis Venous insufficiency of both lower extremities I87.2 Ureterolithiasis N20.1 Insomnia F51.01 Insomnia type: primary Anxiety F41.9 Obesity (BMI 30-39.9) E66.9 Additional Codes BALJIT-7 Assessment Billing - BALJIT-7 Assessment Tool: BALJIT-7 Assessment [id number] ([id number])
== END 2022-10-25 10:29 | disposition home or self-care (01) ==
PROVIDERS: PCP Internal Medicine; Visit Provider Internal Medicine
DX: E11.40 Type 2 diabetes mellitus with diabetic neuropathy, unspecified (principal); E78.00 Pure hypercholesterolemia, unspecified; I10 Essential (primary) hypertension; J45.20 Mild intermittent asthma, uncomplicated; D50.8 Other iron deficiency anemias; E53.8 Deficiency of other specified B group vitamins; G62.9 Polyneuropathy, unspecified; M47.22 Other spondylosis with radiculopathy, cervical region; M06.9 Rheumatoid arthritis, unspecified; M48.54XS Collapsed vertebra, not elsewhere classified, thoracic region, sequela of fracture; E55.9 Vitamin D deficiency, unspecified; K21.9 Gastro-esophageal reflux disease without esophagitis
CPT/HCPCS: 99214

== ENCOUNTER 2022-10-25 10:46 | Outpatient (REF) | payer OTHER, SELFPAY ==
[2022-10-25 11:10] LABS: Estimated Average Glucose 143 mg/dL; Hemoglobin A1c % 6.6 % (<6.0)
[2022-10-25 11:25] LABS: Cholesterol 196 mg/dL (<200); HDL Cholesterol 61 mg/dL (>40); LDL Cholesterol Calculated 105 mg/dL (<100); Triglycerides 150 mg/dL (<150)
== END 2022-10-25 10:47 | disposition home or self-care (01) ==
LOC: HO.LAB 10:46
PROVIDERS: PCP Internal Medicine; Visit Provider Internal Medicine
DX: E11.9 Type 2 diabetes mellitus without complications (principal); E78.00 Pure hypercholesterolemia, unspecified
CPT/HCPCS: 36415; 80061; 83036

== ENCOUNTER 2023-01-01 07:49 | Outpatient (REF) | payer OTHER, SELFPAY ==
--- NOTE | ~2023-01-01 | MR_ITS ---
EXAMINATION: MR LUMBAR SPINE WITHOUT CONTRAST CLINICAL INFORMATION: Collapsed vertebra, not elsewhere classified, thoracic region. COMPARISON: Plain films of the lumbar spine 01/27/2022. MRI scan of the lumbar spine 01/03/2018. TECHNIQUE: MRI of the lumbar spine was obtained using routine sequences without contrast. FINDINGS: VERTEBRAL BODIES AND PARASPINAL STRUCTURES: There is a mild levoscoliosis. There is a 3 mm grade 1 anterolisthesis of L4 on L5. There is a mild retrolisthesis of T12 on L1. There is mild increased kyphosis at the level of T12-L1, unchanged. There is marked narrowing of intervertebral disc height with degenerative endplate contour changes and moderate edematous endplate signal at T12-L1. There appears to be further loss of vertebral body height of T11 centrally of approximately 25%. There are edematous endplate signal changes superiorly with invagination of disc into the superior endplate, consistent with a subacute compression fracture. Overall, marrow signal is homogenous. There are bilateral extrarenal pelves. There is a cyst laterally at the midpole of the right kidney. The visualized pelvic structures are unremarkable. CONUS MEDULLARIS AND CAUDA EQUINA: Normal, terminating at the level of L1. The lower thoracic spinal cord appears normal. The cauda equina nerve roots and filum terminale appear normal. SPINAL LEVELS: There is multilevel dorsal epidural lipomatosis. T10-T11: There is mild bilateral facet arthropathy. There is shallow posterior protrusion of the superior vertebral body of T11 which flattens the ventral thecal sac, but there is no cord compression or central stenosis. There are disc osteophytes extending into the right greater than left neural foramina. T11-T12: There is mild bilateral facet arthropathy. Disc contour is normal. There is no central stenosis or foraminal narrowing. T12-L1: The facet joints appear normal. There is a broad-based posterior disc protrusion with an extruded component extending behind the body of T12 centrally and to the right of midline, increased compared to prior imaging. There is no cord compression or central stenosis. The neural foramina are patent bilaterally. L1-L2: There is mild bilateral facet arthropathy. There is a left-sided disc extrusion which extends into the left lateral recess of L1 and into the left subarticular recess. There is posterior displacement of the traversing left L2 nerve root, and there is compression of the thecal sac anterolaterally. There is no foraminal nerve root impingement. L2-L3: There is mild bilateral facet arthropathy. Disc contour is normal. There is no central stenosis or foraminal narrowing. L3-L4: There is mild to moderate bilateral facet arthropathy with ligamenta flava hypertrophy. There is a shallow posterior disc protrusion with flattening of the ventral thecal sac but there is no cord compression or central stenosis. There is no foraminal nerve root impingement. L4-L5: There is markedly severe bilateral facet arthropathy with ligamenta flava hypertrophy and facet joint effusions. There is mild unroofing of the disc as a result of the anterolisthesis, and there is flattening of the ventral thecal sac with narrowing of the bilateral subarticular recesses. There is moderate central stenosis. There is a right foraminal disc protrusion with mass effect on the exiting right L4 nerve root. L5-S1: There is moderate bilateral facet arthropathy with ligamenta flava hypertrophy. There is a small cyst dorsal to the right facet joint. There appears to be a cyst in the anterior spinous process of L5, which is a new finding compared to the prior MRI scan. There is a small left paracentral disc protrusion without significant mass effect on the thecal sac and there is no central stenosis. There are small inferior foraminal disc protrusions bilaterally without definite impingement on the exiting L5 nerve roots. MR/MR lumbar spine wo con IMPRESSION: 1. There are sequelae of a subacute compression fracture of the superior body of T11 with loss of approximately 25% vertebral body height, new compared to remote prior imaging. There are edematous endplate signal changes at T12-L1 with narrowing of intervertebral disc height. If indicated, follow-up MRI scan of the thoracic spine could be obtained. 2. At L1-L2 there is a left-sided disc extrusion extending caudad into the left lateral recess of L1 and into the left subarticular recess with posterior displacement of the traversing left L2 nerve root. There is no central stenosis or foraminal nerve root impingement. 3. At L4-L5 there is markedly severe facet arthropathy. There is flattening of the ventral thecal sac with narrowing of the bilateral subarticular recesses. There is moderate central stenosis. There is a right foraminal disc protrusion with mass effect on the exiting right L4 nerve root. 4. Spondylosis and facet arthropathic changes are also demonstrated at multiple other levels as described above.
== END 2023-01-01 07:50 | disposition home or self-care (01) ==
LOC: HO.MRI 07:49
PROVIDERS: PCP Internal Medicine; Visit Provider Internal Medicine
DX: M48.54XS Collapsed vertebra, not elsewhere classified, thoracic region, sequela of fracture (principal); M51.16 Intervertebral disc disorders with radiculopathy, lumbar region
CPT/HCPCS: 72148

== ENCOUNTER 2023-02-09 08:43 | Outpatient (REF) | payer OTHER, SELFPAY ==
[2023-02-09 09:00] LABS: MANUAL DIFF FLAG NO
[2023-02-09 10:19] LABS: Basophils Absolute Auto 0.1 X10*3/uL (0.0-0.2); Basophils Percent Auto 0.7 % (0-2); Eosinophils Absolute Auto 0.2 X10*3/uL (0.0-0.4); Eosinophils Percent Auto 2.4 % (0-4); Hematocrit 34.6 % (37.0-47.0); Hemoglobin 10.8 g/dl (12.0-16.0); Lymphocytes Absolute Auto 2.4 X10*3/uL (1.2-4.9); Lymphocytes Percent Auto 23.7 % (20-40); Mean Corpuscular HGB Conc 31.2 g/dl (31.0-35.0); Mean Corpuscular Hemoglobin 26.3 pg (27.0-33.0); Mean Corpuscular Volume 84.4 fL (80.0-98.0); Mean Platelet Volume 10.9 fL (9.4-12.3); Monocytes Absolute Auto 0.8 X10*3/uL (0.1-1.2); Monocytes Percent Auto 7.9 % (2-11); Neutrophils Absolute Auto 6.5 x10*3/uL (2.0-8.3); Neutrophils Percent Auto 64.3 % (45-73); Platelet Count 409 X10*3/uL (160-400); Red Cell Distribution Width 18.2 % (11.0-16.0)
[2023-02-09 10:32] LABS: Estimated Average Glucose 137 mg/dL; Hemoglobin A1c % 6.4 % (<6.0)
[2023-02-09 10:38] LABS: Alanine Aminotransferase 12 U/L (0-31); Albumin Level 3.7 g/dL (3.5-5.0); Alkaline Phosphatase 74 U/L (39-117); Anion Gap 14 (12-20); Aspartate Amino Transferase 14 U/L (5-31); Bilirubin Total 0.4 mg/dL (0.0-1.0); Blood Urea Nitrogen 13 mg/dL (9-16); Calcium 9.4 mg/dL (8.4-10.2); Carbon Dioxide 25 mmol/L (22-29); Chloride 109 mmol/L (96-108); Cholesterol 191 mg/dL (<200); Estimated Glomerular Filt Rate > 60; Glucose Fasting 102 mg/dL (60-99); HDL Cholesterol 44 mg/dL (>40); LDL Cholesterol Calculated 114 mg/dL (<100); Potassium 3.5 mmol/L (3.3-5.1); Sodium 144 mmol/L (135-145); Total Protein 7.1 g/dL (6.5-8.0); Triglycerides 169 mg/dL (<150)
[2023-02-09 10:56] LABS: TSH reflex Free T4 1.26 uIU/mL (0.32-4.0); Vitamin D 25-OH Total 25.8 ng/mL (>30)
[2023-02-09 11:05] LABS: Folate 11.8 ng/mL (> or = 4.0); Vitamin B12 500 pg/mL (200-900)
[2023-02-09 11:19] LABS: Appearance Urine Cloudy; Color Urine Dark Yellow; Glucose Urine UA Negative (Negative); Leukocyte Esterase Urine Negative (Negative); Nitrite Urine Negative (Negative); PH 5.5 (5.0-9.0); Specific Gravity - Urine >= 1.030 (1.005-1.025); Urine Blood Negative (Negative); Urine Ketones Trace mg/dL (Negative); Urine Protein Trace mg/dL (Neg-Trace)
[2023-02-09 12:09] LABS: Microalbum/Creatinine Ratio Ur 5.8 ug/mg cr (<30)
== END 2023-02-09 08:44 | disposition home or self-care (01) ==
LOC: HO.LAB 08:43
PROVIDERS: PCP Internal Medicine; Visit Provider Internal Medicine
DX: E78.00 Pure hypercholesterolemia, unspecified (principal); E55.9 Vitamin D deficiency, unspecified; E53.8 Deficiency of other specified B group vitamins; E11.9 Type 2 diabetes mellitus without complications; I10 Essential (primary) hypertension; R30.0 Dysuria; N30.90 Cystitis, unspecified without hematuria
CPT/HCPCS: 36415; 80053; 80061; 81003; 82043; 82306; 82570; 82607; 82746; 83036; 84443; 85025

== ENCOUNTER 2023-02-15 11:51 | Outpatient (AMB) | payer OTHER, SELFPAY ==
[2023-02-15 12:10] VITALS: BP 128/80; PULSE 101; O2SAT 99; BMI 34.2
--- NOTE | 2023-02-15 12:10 | MHC.PC.OV ---
Vital Signs 02/15/23 12:10 Height 5 ft 2 in Weight 187 lb 4 oz BMI 34.2 BP 128/80 Blood Pressure Location Lt brachial Position Sitting Pulse 101 H Pulse Source Pulse Oximeter Pulse Oximetry (%) 99 Oxygen Delivery Method Room Air Intake Visit Reasons: med review Analysis Or Research Safety Inspector Required: No Accompanied by: Self / Same As Patient Allergies No Known Allergies Allergy (Verified 02/15/23 13:10) Medication List - Last Reconciled 02/15/23 by Michael Vogel MD acetaminophen (Acetaminophen Pain Relief) 1,000 mg (2 x 500 mg) PO Q6H PRN albuterol sulfate 2.5 mg (3 mL) inhalation Q4-6H PRN alendronate 70 mg PO QWEEK blood sugar diagnostic (FreeStyle Test strips) 1 strip miscellaneous TID cyanocobalamin (vitamin B-12) 1,000 mcg IM Q4W ergocalciferol (vitamin D2) 1,250 mcg PO QWEEK ezetimibe (Zetia) 10 mg PO DAILY folic acid 1 mg PO DAILY hydrochlorothiazide 25 mg PO DAILY ibuprofen 600 mg PO Q8H PRN lidocaine 5% 1 patch topical DAILY lisinopril 20 mg PO DAILY metformin 1,000 mg PO BID methotrexate (PF) (Rasuvo (PF)) 20 mg subcut QWEEK naproxen 500 mg PO BID PRN 30 days Nystop (nystatin) 1 appl topical TID NS omeprazole 20 mg PO DAILY 90 days oxycodone 30 mg PO Q12H 28 days pregabalin 150 mg PO TID pyridoxine (vitamin B6) 100 mg PO DAILY 90 days rosuvastatin (Crestor) 40 mg PO DAILY 90 days Ventolin HFA 90 mcg/actuation (albuterol sulfate) 2 puffs inhalation Q6H PRN NS zolpidem 10 mg PO BEDTIME PRN 30 days Tobacco use date assessed: 02/15/23 Dental Screening Dental Screen Date: 02/15/23 Did you have a dental visit in the last 12 months?: No Did you have a dental problem in the last 6 months where you did not have access to dental care?: No Was dental information given to patient?: No HPI med review HPI Details Patient comes in today for her follow up visit States that she has not been able to get her pain medication Rx refilled for a couple of months now (being denied coverage by insurance) and she has been in a lot of pain for the past 2 months She continues to follow-up with Dr. Kennedy at [facility] for continuing treatment of her rheumatoid arthritis She was seen by Dr. Leo at [facility] a couple of months ago for her low back pain with bilateral lower extremity pain and numbness and had a follow-up MRI done after which she was reportedly advised that she is not a candidate for surgery and she was referred instead to [facility] for back injection States that she was seen by [facility] recently and is currently awaiting insurance approval and scheduling for back injection She has requested us try putting in a prior authorization request again for her prescription and is in today to renew her pain management agreement as a prerequisite States that she has been significantly less active lately due to her increased pain She denies any headaches or dizziness Denies any chest pains, no increased shortness of breath No nausea/ vomiting, no abdominal pain No change in bowel habits noted Had her follow-up labs done last week - to discuss her results [facility] Medical History Venous insufficiency of both lower extremities Abnormal bruising Obesity (BMI 30-39.9) Anxiety Insomnia GERD (gastroesophageal reflux disease) Vitamin D deficiency Ureterolithiasis Neuropathy Varicose veins of bilateral lower extremities with pain Rheumatoid arthritis Cervical spondylosis with radiculopathy Asthma Iron deficiency anemia, unspecified Vitamin B12 deficiency Hyperlipidemia Hypertension, essential, benign Diabetes mellitus Surgical History Hx of lithotripsy History of surgery on left wrist History of surgery on right wrist History of arthroplasty of left ankle History of arthroplasty of right ankle S/P VANESSA-BSO (total abdominal hysterectomy and bilateral salpingo-oophorectomy) History of arthroplasty of right knee (~2008) Family History Father Chronic mental illness Mother Diabetes Hypertension Stroke Sister Heart disease Diabetes Social History Household Members: Family Housing: Apartment Alcohol intake: never Patient Tobacco Use Status: Former Tobacco user Quit Date: 2015 Years Smoked: quit 6 years ago e-Cigarette/Vaping Use: Never Used Second Hand Smoke Exposure: No service: No Current occupational status: disabled Cognitive needs: No (cane) Hearing needs: No Vision needs: Yes (glasses) Questionnaire PHQ-9 Over the last 2 weeks, how often have you been bothered by any of the following problems? 1. Little interest or pleasure in doing things: not at all 2. Feeling down, depressed, or hopeless: not at all 3. Trouble falling or staying asleep, or sleeping too much: not at all 4. Feeling tired or having little energy: not at all 5. Poor appetite or overeating: not at all 6. Feeling bad about yourself - or that you are a failure or have let yourself or your family down: not at all 7. Trouble concentrating on things, such as reading the newspaper or watching television: not at all 8. Moving or speaking so slowly that other people could have noticed. Or the opposite - being so fidgety or restless that you have been moving around a lot more than usual: not at all 9. Thoughts that you would be better off or of hurting yourself in some way: not at all Total score: 0 Depression Screening Interpretation: Negative Depression Screening Done: Yes 15248 - PHQ-9 Billing: Yes Source: Developed by Drs. Fredy Mota, Ayanna Sharp, Gaston Garcia and colleagues, with an educational stephanie from [employer]. Thrive Questionnaire Date Thrive assessed: 02/15/23 I am a: Patient What is your living situation today?: I have a steady place to live Within the past 12 months, did the food you bought not last and you didn't have the money to get more?: Never true Within the past 12 months, did you worry whether your food would run out before you got money to buy more?: Never true Do you have trouble paying for medicines?: No Do you have trouble getting transportation to medical appointments?: No Do you have trouble paying your heating and electricity bill?: No Do you have trouble taking care of your child, family member or friend?: No Do you have trouble with day-to-day activities such as bathing, preparing meals, shopping, managing finances, etc.?: No Are you currently unemployed and looking for a job?: No Are you interested in more education?: No Please select the resources that you would like help with: None Currently or been in a relationship where the following occur: no concerns reported AUDIT C Alcohol Use Questionnaire (AUDIT-C) 1. How often do you have a drink containing alcohol?: Never 3. How often do you have six or more drinks on one occasion?: Never Total Score: 0 Score Reviewed/Action Taken: Yes BALJIT-7 AMB Questionnaire BALJIT-7 Date BALJIT - 7 assessed: 02/15/23 Feeling nervous, anxious, or on edge: 0 = Not at all Not being able to stop or control worryin = Not at all Worrying too much about different things: 0 = Not at all Trouble relaxin = Not at all Being so restless that it is hard to sit still: 0 = Not at all Becoming easily annoyed or irritable: 0 = Not at all Feeling afraid as if something awful might happen: 0 = Not at all Total BALJIT-7 score (0-4 normal; 5-9 mild; 10-14 moderate; 15-21 severe): 0 Source: Developed by Drs. Fredy Mota, Ayanna Sharp, Gaston Garcia and colleagues, with an educational stephanie from [employer]. BALJIT-7 Assessment Billing BALJIT-7 Assessment Tool: BALJIT-7 Assessment 03061 Review of Systems Const Denies chills, Reports fatigue, Denies fever(s) and Denies headache(s) ENT Denies dysphagia, Denies dizziness, Denies otalgia, Denies headache(s), Reports neck pain, Denies odynophagia and Denies sore throat Card Denies chest pain, Denies palpitations and Denies dyspnea Resp Denies cough and Denies dyspnea GI Denies abdominal pain, Denies constipation, Denies dysphagia, Denies heartburn, Denies diarrhea, Denies nausea, Denies odynophagia and Denies vomiting Denies nocturia, Denies dysuria and Denies urinary urgency Musc Reports back pain (over the lumbar spine - chronic), Reports arthralgias (involving multiple joints; increased pain over the right hip), Reports neck pain, Reports radiating pain into limb (bilaterally) and Reports tingling (over both lower extremities, on and off) Skin/Breast Denies rash Neuro Denies dizziness, Denies headache(s), Reports radicular pain (in both lower extremities) and Reports tingling (over both lower extremities, on and off) Endo Reports fatigue and Denies palpitations Physical exam (Primary Care) Vital Signs: Last Vital Signs Pulse 101 H 02/15/23 12:10 BP 128/80 02/15/23 12:10 Pulse Ox 99 02/15/23 12:10 Oxygen Delivery Method Room Air 02/15/23 12:10 BMI result Body Mass Index 34.2 Tobacco/Smoking Status: Tobacco use Status Tobacco use date assessed 02/15/23 02/15/23 12:17 Patient Tobacco Use Status Former Tobacco user 02/15/23 12:17 e-Cigarette/Vaping Use Never Used 02/15/23 12:17 PHQ-9: PHQ-9 Score PHQ-9: Total score 0 02/15/23 22:35 Depression Screening Interpretation: Negative Thrive Assessment: Date of Thrive Assessment Date Thrive assessed 02/15/23 02/15/23 12:17 Currently or been in a relationship where the following occur: no concerns reported Const General: no acute distress and alert HENMT Ears: TM's normal bilaterally and EAC's normal Throat: Yes posterior oropharynx normal and Yes tonsils normal (no TP congestion noted) Neck Neck: Yes no lymphadenopathy and Yes supple Resp Auscultation: clear to auscultation bilaterally, no rales and no wheezes Cardio Rate: regular rate Rhythm: regular rhythm Heart sounds: no murmurs GI Palpation (GI): Soft to palpation, nontender and no guarding Auscultation: normal bowel sounds Back/Spine/Pelvis Cervical Spine: Cervical spine tenderness Thoracic/Lumbar Spine: paraspinal muscle tenderness on the left in the lower thoracic and in the upper thoracic and lumbar spinal tenderness Skin Rashes: no rashes Extrem General: Yes no clubbing, cyanosis or edema Right upper extremity: Extremity exam: right hand Details: tenderness Left upper extremity: hand Details: tenderness Results Reviewed Results Reviewed: Laboratory Tests 02/09/23 02/09/23 08:59 09:00 WBC 10.0 Hgb 10.8 L Hct 34.6 L Plt Count 409 H Sodium 144 Potassium 3.5 Creatinine 0.87 Estimated GFR > 60 Fasting Glucose 102 H Hemoglobin A1c % 6.4 H Calcium 9.4 D AST 14 ALT 12 Triglycerides 169 H Cholesterol 191 LDL Cholesterol, Calc 114 H HDL Cholesterol 44 Vitamin B12 500 25-OH Vitamin D Total 25.8 L TSH 1.26 Ur Specific [place] >= 1.030 H Urine Protein Trace Urine Glucose (UA) Negative Urine Blood Negative Microalb/Creat Ratio 5.8 Assessment and Plan Assessment & Plan (1) Diabetes mellitus: Code(s): E11.9 - Type 2 diabetes mellitus without complications Qualifiers: Diabetes mellitus complication detail: with unspecified neuropathy Diabetes mellitus complication status: with neurologic complications Diabetes mellitus terminal operator insulin use: without terminal operator use Diabetes mellitus type: type 2 Qualified Code(s): E11.40 - Type 2 diabetes mellitus with diabetic neuropathy, unspecified Plan: HgbA1c was at 6.4% on her labs done last week (was at 6.3% a few months ago) - goal is < 7.0% Reinforced diabetic diet Continue Metformin 1000 mg BID (2) Hyperlipidemia: Code(s): E78.5 - Hyperlipidemia, unspecified Qualifiers: Hyperlipidemia type: pure hypercholesterolemia Qualified Code(s): E78.00 - Pure hypercholesterolemia, unspecified Plan: Results of her labs done last week reviewed and discussed with patient Reinforced low cholesterol diet Continue Rosuvastatin 20 mg QD and Ezetimibe 10 mg QD for now Will recheck her labs and fasting lipids again in 3 months for follow up (3) Hypertension, essential, benign: Code(s): I10 - Essential (primary) hypertension Plan: Reinforced low sodium diet - goal is systolic BP of at least 120 to 130 mm or less Continue HCTZ 25 mg QD and Lisinopril 20 mg QD (4) Asthma: Code(s): J45.909 - Unspecified asthma, uncomplicated Qualifiers: Asthma complication type: uncomplicated Asthma persistence: intermittent Asthma severity: mild Qualified Code(s): J45.20 - Mild intermittent asthma, uncomplicated Plan: Stable/controlled - states that she uses her Albuterol HFA inhaler only as needed (5) Iron deficiency anemia, unspecified: Code(s): D50.9 - Iron deficiency anemia, unspecified Qualifiers: Iron deficiency anemia type: inadequate dietary iron intake Qualified Code(s): D50.8 - Other iron deficiency anemias Plan: Continue IV iron Tx as needed Follow up with hematology (Dr. Anthony) as scheduled Has been referred to GI for screening colonoscopy (recalls having one done at [facility] a few years ago but have been unable to locate any record of this in [facility] or [facility] she was seen last year but anesthesia recommended cardiac clearance first She has since been cleared but has not yet been scheduled and this has yet to be done Patient would like to hold off on this for now as she is currently in a lot of pain (from her kidney stones as well as over her left thoracolumbar area and inmultiple joints) - states that she will consider getting this done later when her current issues are better controlled (6) Vitamin B12 deficiency: Code(s): E53.8 - Deficiency of other specified B group vitamins Plan: Continue oral Vitamin B12 1000 mcg QD and B12 injection monthly (7) Neuropathy: Comment: Repeat NCV and EMG done in November 2017 revealed findings consistent with neuropathy Code(s): G62.9 - Polyneuropathy, unspecified Plan: Continue Pregabalin 150 mg TID Follow up with neurology as scheduled (8) Cervical spondylosis with radiculopathy: Code(s): M47.22 - Other spondylosis with radiculopathy, cervical region Plan: Continue Oxycodone 30 mg Q 6 hours PRN, Cyclobenzaprine 5 mg TID PRN and Lidocaine 5% ointment topically TID PRN MRI of the cervical spine previously requested for was denied by insurance (9) Rheumatoid arthritis: Comment: Is on Prednisone 5 mg-20 mg daily, Methotrexate tablets 2.5 mg 6 tablets once a day on Sundays. Rinvoq ER 15 mg qd has been discontinued. Code(s): M06.9 - Rheumatoid arthritis, unspecified Qualifiers: Rheumatoid arthritis location: unspecified site Rheumatoid factor presence: with rheumatoid factor Qualified Code(s): M05.9 - Rheumatoid arthritis with rheumatoid factor, unspecified Plan: Follow up with rheumatology (Dr. Kennedy) as scheduled Continue Prednisone 2.5 mg QD and Methotrexate injection (Rasuvo) 20 mg) once a week; was previously on Rinvoq ER 15 mg QD but this was discontinued due to side effects (diarrhea) Patient so far has failed multiple treatments for RA already - was unable to tolerate Rinvoq (diarrhea) and had poor or no clinical response to Xeljanz, Olumiant, Cimzia and Rituximab; she has also failed anti-TNF therapies, as well as Actemra, Orencia and multiple other DMARDs including Azathioprine (10) Non-traumatic compression fracture of eleventh thoracic vertebra: Code(s): M48.54XA - Collapsed vertebra, not elsewhere classified, thoracic region, initial encounter for fracture Qualifiers: Encounter type: sequela Qualified Code(s): M48.54XS - Collapsed vertebra, not elsewhere classified, thoracic region, sequela of fracture Plan: This was seen on a recent repeat lumbar spine x-rays and is a new finding - is most likely a source of her recent recurrent left mid to lower back pain and discomfort Suspect that this may have resulted from her last ESWL a few months ago She reportedly had BMD done at Dr. Kennedy's office on 05/20/2021 and her left femur T-score at the time was at -1.8 Repeat spine x-rays done a few months ago shows some progression of her degenerative changes from before States that she has been unable to get her pain med Rx refilled for over a couple of months now as insurance declined her Rx coverage and again required a prior authorization on her Rx, which has remained the same and has been unchanged for years; they also subsequently denied her prior authorization request as in addition to a lot of requirements, they also wanted proof sent over that patient has a current pain management agreement with us in place, which she is in today to sign and complete a current one Have advised patient again that the inisurance restrictions are likely due to her relatively high dose of her pain meds and that this is going to continue to be a recurrent issue / problem for her going forward We even tried lowering her Rx dosage to Oxycodone 30 mg BID PRN but that was also denied by her insurance As she now completed a current pain management agreement, will try to submit another prior authorization request for her Rx (11) Vitamin D deficiency: Code(s): E55.9 - Vitamin D deficiency, unspecified Plan: Corrected; continue OTC Vitamin D supplements as well as her weekly 57775 units of Vitamin D2 weekly (12) GERD (gastroesophageal reflux disease): Comment: continue ppi- avoid culprits EGD- Code(s): K21.9 - Gastro-esophageal reflux disease without esophagitis Qualifiers: Esophagitis presence: without esophagitis Qualified Code(s): K21.9 - Gastro-esophageal reflux disease without esophagitis Plan: Dietary restrictions reinforced Continue Omeprazole 20 mg QD PRN (13) Venous insufficiency of both lower extremities: Code(s): I87.2 - Venous insufficiency (chronic) (peripheral) Plan: Follow up with vascular surgery (Dr. Yu Dietrich) as scheduled Has been advised to continue with conservative treatment for now due to her multiple comorbidities (14) Ureterolithiasis: Comment: S/P left ESWL a few months ago (had a 5 mm renal calculi), with resolution of symptoms Code(s): N20.1 - Calculus of ureter Plan: S/P repeat ESWL a few months ago but states that she is still experiencing recurrent pain and discomfort, and more recently, pain over her left lower throacic and lumbar area Follow up with urology as scheduled (15) Insomnia: Code(s): G47.00 - Insomnia, unspecified Qualifiers: Insomnia type: primary Qualified Code(s): F51.01 - Primary insomnia Plan: Sleep hygiene reinforced Continue Zolpidem 10 mg Q HS PRN (16) Anxiety: Code(s): F41.9 - Anxiety disorder, unspecified Plan: States that her anxiety has been controlled lately - used to take Fluoxetine but she has not been on this in a while now (17) Obesity (BMI 30-39.9): Code(s): E66.9 - Obesity, unspecified Plan: Reinforced diet; exercise and weight loss are unrealistic at present due to her increasing low back pain and lumbar radicular pain and other multiple comorbidities Plan Follow up in 3 months Orders: Orders Hemoglobin A1c 3 Months E11.9 - Type 2 diabetes mellitus without complications Comprehensive [place]. Panel Fast 3 Months E78.00 - Pure hypercholesterolemia, unspecified Complete Blood Count Auto Diff 3 Months I10 - Essential (primary) hypertension Vitamin D 25-OH Total 3 Months E55.9 - Vitamin D deficiency, unspecified Lipid Panel 3 Months E78.00 - Pure hypercholesterolemia, unspecified Microalbumin, Random (w Creat) 3 Months E11.9 - Type 2 diabetes mellitus without complications UA CC w/rflx Micro + Cult 3 Months R30.0 - Dysuria TSH reflex Free T4 3 Months E78.00 - Pure hypercholesterolemia, unspecified Vitamin B12 and Folate 3 Months E53.8 - Deficiency of other specified B group vitamins Erythrocyte Sedimentation Rate 3 Months M06.9 - Rheumatoid arthritis, unspecified Rheumatoid Factor 3 Months M06.9 - Rheumatoid arthritis, unspecified Coding Level of Care Code Est Pt Level 4 (63420) Diagnoses Type 2 diabetes mellitus with diabetic neuropathy, without long-term current use of insulin E11.40 Diabetes mellitus complication detail: with unspecified neuropathy Diabetes mellitus complication status: with neurologic complications Diabetes mellitus mcfp insulin use: without mcfp use Diabetes mellitus type: type 2 Pure hypercholesterolemia E78.00 Hyperlipidemia type: pure hypercholesterolemia Hypertension, essential, benign I10 Mild intermittent asthma without complication J45.20 Asthma complication type: uncomplicated Asthma persistence: intermittent Asthma severity: mild Iron deficiency anemia secondary to inadequate dietary iron intake D50.8 Iron deficiency anemia type: inadequate dietary iron intake Vitamin B12 deficiency E53.8 Neuropathy G62.9 Cervical spondylosis with radiculopathy M47.22 Rheumatoid arthritis with positive rheumatoid factor, involving unspecified site M05.9 Rheumatoid arthritis location: unspecified site Rheumatoid factor presence: with rheumatoid factor Nontraumatic compression fracture of T11 vertebra, sequela M48.54XS Encounter type: sequela Vitamin D deficiency E55.9 Gastroesophageal reflux disease without esophagitis K21.9 Esophagitis presence: without esophagitis Venous insufficiency of both lower extremities I87.2 Ureterolithiasis N20.1 Primary insomnia F51.01 Insomnia type: primary Anxiety F41.9 Obesity (BMI 30-39.9) E66.9 Additional Codes BALJIT-7 Assessment Billing - BALJIT-7 Assessment Tool: BALJIT-7 Assessment [id number] ([id number])
== END 2023-02-15 13:28 | disposition home or self-care (01) ==
PROVIDERS: PCP Internal Medicine; Visit Provider Internal Medicine
DX: E11.40 Type 2 diabetes mellitus with diabetic neuropathy, unspecified (principal); M05.9 Rheumatoid arthritis with rheumatoid factor, unspecified; E78.00 Pure hypercholesterolemia, unspecified; I10 Essential (primary) hypertension; J45.20 Mild intermittent asthma, uncomplicated; D50.8 Other iron deficiency anemias; E53.8 Deficiency of other specified B group vitamins; G62.9 Polyneuropathy, unspecified; M47.22 Other spondylosis with radiculopathy, cervical region; M48.54XS Collapsed vertebra, not elsewhere classified, thoracic region, sequela of fracture; E55.9 Vitamin D deficiency, unspecified; K21.9 Gastro-esophageal reflux disease without esophagitis
CPT/HCPCS: 99214

== ENCOUNTER 2023-03-26 10:59 | Emergency (ER) | payer OTHER, SELFPAY ==
--- NOTE | ~2023-03-26 | CT_ITS ---
EXAMINATION: CT thoracic spine and CT lumbar spine without contrast. CLINICAL INDICATIONS: Worsening mid and lower back pain. COMPARISON: MRI lumbar spine 01/01/2023. TECHNIQUE: 2 mm thin axial and reformatted 2 mm thin sagittal and coronal images of thoracic and lumbar spine were obtained. DLP 1374. This CT examination was performed using dose optimization technique as appropriate, variously including the following: Automated exposure control Adjustment of MA and/or KV according to patient size(this includes techniques or standardized protocols for targeted exams where dose is matched to indication/reason for exam; extremities or head. Use of iterative reconstruction techniques. FINDINGS: THORACIC SPINE: On sagittal reconstructed images is maintained thoracic kyphosis. The vertebral heights and alignment is normal except for mild superior endplate deformity T11 vertebra.. There is mild loss of T7-T8, T8-T9, T9-T10, T11-T12 and T12/L1 disc levels with ventral spondylosis in mid and lower dorsal spine. No aggressive lytic or sclerotic process seen. The facet joints are symmetrical and normal. At T7-T8 disc level there is a disc osteophyte bulge complex extending to the anterior epidural space but no spinal canal stenosis seen. There is mild narrowing of bilateral neural foramina from for mild osteophytosis. At T9-T10 disc level there is left para midline posterior spondylosis/bulge complex mildly narrowing the left neural foramina. The right neural foramina appears patent. At T12-L1 disc level there is endplate sclerosis, without disc bulge or herniation. The neural foramina patent bilaterally. The paravertebral soft tissues are normal. Minimal platelike atelectasis seen in the left lung left lower lobe. The right lung base is clear. LUMBAR SPINE: There is normal lumbar lordosis. There is grade 1 anterolisthesis L4 over L5. Rest of the vertebral alignment and vertebral heights are normal. The disc heights are preserved. At T12-L1 disc level there is loss of disc height with moderate ventral spondylosis, endplate sclerosis with no spinal canal stenosis. The neural foramina are patent bilaterally. At L1-L2, L2-L3, L3-L4 disc levels are unremarkable. At L4-L5 disc level there is a broad-based diffuse bulge eccentric to the right with moderate spinal canal stenosis. There is bilateral moderate facet joint and ligament femoral hypertrophy with mild bilateral neural foraminal narrowing. At L5-S1 disc level there is no suggestion disc bulge, herniation or spinal canal stenosis. The neural foramina are patent bilaterally. No aggressive lytic process seen. The paravertebral soft tissues are normal. There are nonobstructive bilateral small radiopaque renal calculi no hydronephrosis seen. CT/CT thoracic spine wo IV con IMPRESSION: There is no visible acute fracture or dislocation in dorsal lumbar spine. There is superior endplate deformity T11 vertebra likely old. There is a disc osteophyte complex T7-T8 and T9-T10 disc levels. There is no spinal canal stenosis. Grade 1 anterolisthesis L4 over L5. There is mild disc bulge eccentric to the right at the L4-L5 disc level resulting in canal stenosis and bilateral mild neural foraminal narrowing.
[2023-03-26 11:14] VITALS: BP 180/98; PULSE 96; RESP 16; TEMP 35.9; O2SAT 99; BMI 34.5
--- NOTE | 2023-03-26 11:14 | ED.GENADULT ---
HPI - General Adult General Chief complaint: Back Pain/Injury Stated complaint: back pain nerves in hands jumping Time Seen by Provider: 03/26/23 12:29 Source: patient and RN notes reviewed Mode of arrival: ambulatory Limitations: no limitations History of Present Illness HPI narrative: This is a 63 [id number], with a hx of chronic back pain presenting to the ER with ongoing back pain. No new trauma or injury. Reports that she saw [facility] as well as pain management and was scheduled to have injection but was cancelled due to insurance coverage. Pt states that she has had ongoing numbness and tingling into her BL feet, also reporting tingling in her bilateral fingertips which has been ongoing. She denies any new symptoms but is unsure what to do to manage her symptoms and pain. No saddle anesthesias. No urinary or bowel retention or incontinence. No urinary symptoms. No other complaints or concerns at this time. MD complaint: back pain Location: back Radiation: extremity Severity: moderate Quality: aching Pain Consistency: constant Relieving factors: none Exacerbating factors: none Associated symptoms: denies other symptoms Treatments prior to arrival: none Related Data Home Medications Medication Instructions Recorded Confirmed folic acid 1 mg tablet 1 mg PO DAILY 11/27/19 02/15/23 alendronate 70 mg tablet 70 mg PO QWEEK 11/17/20 02/15/23 ezetimibe 10 mg tablet (Zetia) 10 mg PO DAILY 11/14/21 02/15/23 methotrexate (PF) 20 mg/0.4 mL 20 mg subcut QWEEK 12/30/21 02/15/23 subcutaneous auto-injector (Rasuvo (PF)) Previous Rx's Medication Instructions Recorded acetaminophen 500 mg tablet 1,000 mg (2 x 500 mg) PO Q6H PRN 03/23/21 (Acetaminophen Pain Relief) pain #60 tabs hydrochlorothiazide 25 mg tablet 25 mg PO DAILY #90 tabs 10/28/21 lidocaine 5 % topical patch 1 patch topical DAILY #30 ea 11/21/21 ibuprofen 600 mg tablet 600 mg PO Q8H PRN pain #30 tabs 12/12/21 pyridoxine (vitamin B6) 100 mg 100 mg PO DAILY 90 days #90 tabs 12/30/21 tablet ergocalciferol (vitamin D2) 1,250 1,250 mcg PO QWEEK #12 caps 03/24/22 mcg (50,000 unit) capsule rosuvastatin 40 mg tablet (Crestor) 40 mg PO DAILY 90 days #90 tabs 04/14/22 lisinopril 20 mg tablet 20 mg PO DAILY #90 tabs 07/14/22 naproxen 500 mg tablet 500 mg PO BID PRN pain 30 days #60 07/14/22 tabs Ventolin HFA 90 mcg/actuation 2 puff inhalation Q6H PRN 10/08/22 aerosol inhaler (albuterol sulfate) bronchospasm #18 grams omeprazole 20 mg capsule,delayed 20 mg PO DAILY 90 days #90 caps 11/19/22 release albuterol sulfate 2.5 mg/3 mL 2.5 mg (3 mL) inhalation Q4-6H PRN 11/23/22 (0.083 %) solution for nebulization Wheezing #75 mL cyanocobalamin (vitamin B-12) 1,000 mcg IM Q4W #3 mL 11/23/22 1,000 mcg/mL injection solution blood sugar diagnostic (FreeStyle 1 strip miscellaneous TID #100 02/27/23 Test strips) strips zolpidem 10 mg tablet 10 mg PO BEDTIME PRN insomnia 30 02/27/23 days #30 tabs Nystop 100,000 unit/gram topical 1 appl topical TID #60 grams 03/06/23 powder (nystatin) nystatin 100,000 unit/mL oral 10 ml buccal TID 10 days #300 mL 03/09/23 suspension oxycodone 30 mg tablet 30 mg PO Q12H pain 28 days #56 tabs 03/16/23 pregabalin 150 mg capsule 150 mg PO TID 30 days #90 caps 03/16/23 tretinoin 0.025 % topical cream 1 appl topical BEDTIME #45 grams 03/16/23 metformin 1,000 mg tablet 1,000 mg PO BID #180 tabs 03/19/23 Allergies Allergy/AdvReac Type Severity Reaction Status Date / Time No Known Allergies Allergy Verified 02/15/23 13:10 Review of Systems Review of Systems: Yes all other systems are reviewed and are negative Constitutional: Constitutional: Reports as per [facility] Past Medical History Medical History Venous insufficiency of both lower extremities Abnormal bruising Obesity (BMI 30-39.9) Anxiety Insomnia GERD (gastroesophageal reflux disease) Vitamin D deficiency Ureterolithiasis Neuropathy Varicose veins of bilateral lower extremities with pain Rheumatoid arthritis Cervical spondylosis with radiculopathy Asthma Iron deficiency anemia, unspecified Vitamin B12 deficiency Hyperlipidemia Hypertension, essential, benign Diabetes mellitus Surgical History Hx of lithotripsy History of surgery on left wrist History of surgery on right wrist History of arthroplasty of left ankle History of arthroplasty of right ankle S/P VANESSA-BSO (total abdominal hysterectomy and bilateral salpingo-oophorectomy) History of arthroplasty of right knee (~2008) Family History Family History Father Chronic mental illness Mother Diabetes Hypertension Stroke Sister Heart disease Diabetes Social History Social History Household Members: Family Housing: Apartment Alcohol intake: never Patient Tobacco Use Status: Former Tobacco user Quit Date: 2014 Smoked: quit 6 years ago e-Cigarette/Vaping Use: Never Used Second Hand Smoke Exposure: No service: No Current occupational status: disabled Cognitive needs: No (cane) Hearing needs: No Vision needs: Yes (glasses) Physical Exam ED Vital Signs: Vital Signs - 24 hr 03/26/23 11:14 Temperature 96.7 F L Pulse Rate 96 Respiratory Rate 16 Blood Pressure 180/98 H Pulse Oximetry 99 Oxygen Delivery Method Room Air BMI result Body Mass Index 34.5 Const General: cooperative, comfortable and no acute distress Orientation/consciousness: patient oriented x3 Limitations: no limitations [facility] Head: Yes normal to inspection, Yes normocephalic and Yes atraumatic Ears: hearing grossly normal bilaterally General nose exam: Normal external nose present Face and sinus: Yes normal facial exam Mouth: Normal oral and palatal mucosa present, oropharynx normal and moist mucous membranes Throat: Yes posterior oropharynx normal Eyes General: appearance normal, both eyes and all related structures Eyelids: Yes eyelids normal Conjunctivae: conjunctivae normal Sclerae: sclerae normal Pupils: Equal, round and reactive pupils present EOM: EOMs intact bilaterally Neck Other: No midline C spine tenderness Neck: Yes normal visual inspection, Yes full ROM and Yes no lymphadenopathy Lymphatic: no lymphadenopathy noted Chest Chest palpation & inspection: normal inspection of the chest Resp Effort & Inspection: normal respiratory effort and able to speak in complete sentences Auscultation: clear to auscultation bilaterally, no crackles, no rales, no rhonchi and no wheezes Cardio Rate: regular rate Rhythm: regular rhythm Heart sounds: S1 normal heart sound present and S2 normal heart sound present GI Other: Abdomen is soft, nontender Inspection: Yes normal to inspection Back/Spine/Pelvis Other: TTP overlying the lumbar midline spine, strength 5/5 in LE. patellar reflexes 2+. No overlying skin changes. Skin General skin exam: no rashes or lesions noted Trauma: no lacerations or abrasions Wounds: no wounds Neuro General: patient oriented x3 and moves all extremities Cranial nerves: Yes Equal, round and reactive pupils present Extrem General: Yes normal to inspection Right upper extremity: normal to inspection Left upper extremity: normal to inspection Right lower extremity: normal to inspection Left lower extremity: normal to inspection Course Course Course Narrative: RME:?63 yo female, hx of T2DM, PAD, HTN, HDL, GERD, insomnia, carpal tunnel syndrome (Right), iron deficiency anemia, asthma, RA, varicose veins, here for eval of low back pain x2 weeks, worsening over last 3 days. radiation down right leg into foot. also endorses paresthesias down left hand/arm onset 2 wks ago and reports feeling weaker in UEs. Denies new injury/trauma/fall. No hx of IVDU. Lumbar MRI from 12/2022 shows sequelae from compression fracture with 25% loss of vertebral body height, L1-L2 left-sided disc extrusion extending caudad into the left lateral recess of L1 with posterior displacement of the transverse left L2 nerve root. L4-L5 markedly severe facet arthropathy. Was supposed to have steroid shot with [email or web address] in back but insurance would not cover this. PE: midline thoracic and lumbar spinous tenderness, no step off deformity. ambulating w/ steady gait. 2+ dp/pt/radial pulses. negative tinel and phalen b/l. 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 imaging and labs ordered in triage. Full HPI, ROS and PE to be performed by the primary ED provider. Medical Decision Making Medical Decision Making MDM Narrative: This is a 63 yaer-old female, hx of T2DM, PAD, HTN, HDL, GERD, insomnia, carpal tunnel syndrome (Right), iron deficiency anemia, asthma, RA, varicose veins, here for eval of low back pain x 4 months worsening over last several weeks without injury or trauma. Reporting radiation down both legs. Also reporting some numbness/tiglking into her bilateral fingertips. Denies any arm numbness., tingling, chest pain or SOB. No c-spine tenderness. radiation. No hx of IVDU. Lumbar MRI from 12/2022 shows sequelae from compression fracture with 25% loss of vertebral body height, L1-L2 left-sided disc extrusion extending caudad into the left lateral recess of L1 with posterior displacement of the transverse left L2 nerve root. L4-L5 markedly severe facet arthropathy. Was supposed to have steroid shot with [email or web address] in back but insurance would not cover this. Here today as she has exhausted her resources and was is unsure what to do. CT t-spine and lspine was ordered prior to my evaluation, appears to be similar to MRI. Discussed with patient that she is already on prednisone and other pain medication. She has no red flag back sxs on examination to suggest cauda equina syndrome or any new neurological deficits that require MRI STAT imaging. I discussed this with patient and expressed to her the importance of f/u with PCP, [facility]. Also given referral to Dr. Murrell for possible treatment and recommendations. Given return precautions. Stable for d/c. Differential Diagnosis Differential Diagnoses: The differential diagnosis associated with the presentation includes DDD, spondylosis, facet arthritis, compression fx, cauda equina syndrome Admission/Observation Consideration of admission/observation: Escalation of care including admission/observation considered Lab Data [facility] Lab Attestation statement: I reviewed the patient's lab results. Slight leukocytosis, chemistry nondiagnosis 03/26/23 11:54 03/26/23 11:54 Labs: Lab Results 03/26/23 Range/Units 11:54 WBC 13.6 H (4.8-10.8) X10*3/uL RBC 4.27 (4.20-5.50) X10*6/uL Hgb 11.3 L (12.0-16.0) g/dl Hct 35.7 L (37.0-47.0) % MCV 83.6 (80.0-98.0) fL MCH 26.5 L (27.0-33.0) pg MCHC 31.7 (31.0-35.0) g/dl RDW 18.8 H (11.0-16.0) % Plt Count 372 (160-400) X10*3/uL MPV 10.6 (9.4-12.3) fL Immature Gran % (Auto) 0.9 H (0.0-0.4) % Neut % (Auto) 77.4 H (45-73) % Lymph % (Auto) 12.8 L (20-40) % [place] % (Auto) 6.2 (2-11) % Eos % (Auto) 2.0 (0-4) % Baso % (Auto) 0.7 (0-2) % Lymph # (Auto) 1.8 (1.2-4.9) X10*3/uL [place] # (Auto) 0.8 (0.1-1.2) X10*3/uL Eos # (Auto) 0.3 (0.0-0.4) X10*3/uL Baso # (Auto) 0.1 (0.0-0.2) X10*3/uL Abs Immat Gran (auto) 0.12 H (0.00-0.03) X10*3/uL Absolute Neuts (auto) 10.6 H (2.0-8.3) x10*3/uL Absolute Nucleated RBC 0.000 (0.0-0.012) X10*3/uL Nucleated RBC % (auto) 0.0 (0.0-0.2) /100WBC Sodium 144 (135-145) mmol/L Potassium 3.4 (3.3-5.1) mmol/L Chloride 108 (96-108) mmol/L Carbon Dioxide 26 (22-29) mmol/L Anion Gap 13 (12-20) BUN 16 (9-16) mg/dL Creatinine 1.20 (0.5-1.4) mg/dL Estim Creat Clear Calc 48.7 Estimated GFR 45 Random Glucose 173 H (60-115) mg/dL Calcium 9.4 (8.4-10.2) mg/dL Magnesium 2.0 (1.6-2.6) mg/dL Lipase 41 (8-78) U/L Vitamin B12 561 (200-900) pg/mL Radiology Impression Discussion of test interpretation with radiology: I have reviewed the radiologist's reading. Radiologist Impression: [address] [address] [address] Scan Report Signed Patient: Isela Frausto MR#: [id number] : 1960 Acct:[id number] Age/Sex: 63 / F ADM Date: 03/26/23 Loc: HO.ED Attending Dr: Ordering Physician: Nisha Ferguson Date of Service: 03/26/23 Procedure(s): CT thoracic spine wo IV con Accession Number(s): [id number] cc: Michael Vogel MD; Nisha Ferguson~ EXAMINATION: CT thoracic spine and CT lumbar spine without contrast. CLINICAL INDICATIONS: Worsening mid and lower back pain. COMPARISON: MRI lumbar spine 01/01/2023. TECHNIQUE: 2 mm thin axial and reformatted 2 mm thin sagittal and coronal images of thoracic and lumbar spine were obtained. DLP 1374. This CT examination was performed using dose optimization technique as appropriate, variously including the following: Automated exposure control Adjustment of MA and/or KV according to patient size(this includes techniques or standardized protocols for targeted exams where dose is matched to indication/reason for exam; extremities or head. Use of iterative reconstruction techniques. FINDINGS: THORACIC SPINE: On sagittal reconstructed images is maintained thoracic kyphosis. The vertebral heights and alignment is normal except for mild superior endplate deformity T11 vertebra.. There is mild loss of T7-T8, T8-T9, T9-T10, T11-T12 and T12/L1 disc levels with ventral spondylosis in mid and lower dorsal spine. No aggressive lytic or sclerotic process seen. The facet joints are symmetrical and normal. At T7-T8 disc level there is a disc osteophyte bulge complex extending to the anterior epidural space but no spinal canal stenosis seen. There is mild narrowing of bilateral neural foramina from for mild osteophytosis. At T9-T10 disc level there is left para midline posterior spondylosis/bulge complex mildly narrowing the left neural foramina. The right neural foramina appears patent. At T12-L1 disc level there is endplate sclerosis, without disc bulge or herniation. The neural foramina patent bilaterally. The paravertebral soft tissues are normal. Minimal platelike atelectasis seen in the left lung left lower lobe. The right lung base is clear. LUMBAR SPINE: There is normal lumbar lordosis. There is grade 1 anterolisthesis L4 over L5. Rest of the vertebral alignment and vertebral heights are normal. The disc heights are preserved. At T12-L1 disc level there is loss of disc height with moderate ventral spondylosis, endplate sclerosis with no spinal canal stenosis. The neural foramina are patent bilaterally. At L1-L2, L2-L3, L3-L4 disc levels are unremarkable. At L4-L5 disc level there is a broad-based diffuse bulge eccentric to the right with moderate spinal canal stenosis. There is bilateral moderate facet joint and ligament femoral hypertrophy with mild bilateral neural foraminal narrowing. At L5-S1 disc level there is no suggestion disc bulge, herniation or spinal canal stenosis. The neural foramina are patent bilaterally. No aggressive lytic process seen. The paravertebral soft tissues are normal. There are nonobstructive bilateral small radiopaque renal calculi no hydronephrosis seen. CT/CT thoracic spine wo IV con IMPRESSION: There is no visible acute fracture or dislocation in dorsal lumbar spine. There is superior endplate deformity T11 vertebra likely old. There is a disc osteophyte complex T7-T8 and T9-T10 disc levels. There is no spinal canal stenosis. Grade 1 anterolisthesis L4 over L5. There is mild disc bulge eccentric to the right at the L4-L5 disc level resulting in canal stenosis and bilateral mild neural foraminal narrowing. Dictated By: Juan Luis Osuna MD External Record Review External record reviewed: Prior outpatient radiology Prescription Management I considered prescription management with: Pain Medication Chronic Conditions Patient?s care impacted by: Diabetes and Hypertension Discharge Plan Discharge Clinical Impression: Chronic back pain Patient Disposition: Home, Self-Care Instructions: Back Pain (ED) Additional Instructions: You were seen in the emergency department due to ongoing back pain. Your CT of your back revealed some disc bulging at your L4-L5 level, which is similar to your previous MRI. You need to follow-up with your back specialist, call to make an appointment. I am also referring you to Dr. Murrell, who is a document processing specialist. Call to make an appointment. Continue taking all at-home medications as directed. Follow-up with your primary care physician. If any new or worsening symptoms occur including but not limited to numbness and tingling into your groin, or loss of bowel and bladder control, please return for re-evaluation. Prescriptions: No Action hydrochlorothiazide 25 mg tablet 25 mg PO DAILY Qty: 90 1RF lidocaine 5 % adhesive patch,medicated 1 patch topical DAILY Qty: 30 0RF Rx Instructions: leave on most painful area for up to 12 hrs ibuprofen 600 mg tablet 600 mg PO Q8H PRN (Reason: pain) Qty: 30 0RF ergocalciferol (vitamin D2) 1,250 mcg (50,000 unit) capsule 1,250 mcg PO QWEEK Qty: 12 5RF naproxen 500 mg tablet 500 mg PO BID PRN (Reason: pain) 30 Days Qty: 60 0RF Rx Instructions: Take with food and only as needed lisinopril 20 mg tablet 20 mg PO DAILY Qty: 90 3RF albuterol sulfate [Ventolin HFA] 90 mcg/actuation HFA aerosol inhaler 2 puff inhalation Q6H PRN (Reason: bronchospasm) Qty: 18 5RF omeprazole 20 mg capsule,delayed release(DR/EC) 20 mg PO DAILY 90 Days Qty: 90 1RF cyanocobalamin (vitamin B-12) 1,000 mcg/mL solution 1,000 mcg IM Q4W Qty: 3 2RF albuterol sulfate 2.5 mg /3 mL (0.083 %) solution for nebulization 2.5 mg inhalation Q4-6H PRN (Reason: Wheezing) Qty: 75 3RF FreeStyle Test Strip 1 strip miscellaneous TID Qty: 100 3RF zolpidem 10 mg tablet 10 mg PO BEDTIME PRN (Reason: insomnia) 30 Days Qty: 30 1RF nystatin [Nystop] 100,000 unit/gram powder 1 appl topical TID Qty: 60 1RF nystatin 100,000 unit/mL suspension 10 ml buccal TID 10 Days Qty: 300 0RF Rx Instructions: swish 1/2 of dose in each side of the mouth for up to 5 minutes, then spit out the medicine pregabalin 150 mg capsule 150 mg PO TID 30 Days Qty: 90 0RF tretinoin 0.025 % cream 1 appl topical BEDTIME Qty: 45 0RF oxycodone 30 mg tablet 30 mg PO Q12H 28 Days Qty: 56 0RF metformin 1,000 mg tablet 1,000 mg PO BID Qty: 180 0RF ezetimibe [Zetia] 10 mg tablet 10 mg PO DAILY folic acid 1 mg tablet 1 mg PO DAILY acetaminophen [Acetaminophen Pain Relief] 500 mg tablet 1,000 mg PO Q6H PRN (Reason: pain) Qty: 60 0RF rosuvastatin [Crestor] 40 mg tablet 40 mg PO DAILY 90 Days Qty: 90 3RF alendronate 70 mg tablet 70 mg PO QWEEK Rasuvo (PF) 20 mg/0.4 mL auto-injector 20 mg subcut QWEEK pyridoxine (vitamin B6) 100 mg tablet 100 mg PO DAILY 90 Days Qty: 90 1RF Referrals: [facility] [Provider Group] Interventions: ED Discharge Assessment Last Done: 03/26/23 15:25 Discharge Date/Time: 03/26/23 15:25
[2023-03-26 12:05] LABS: MANUAL DIFF FLAG NO
[2023-03-26 12:07] LABS: Basophils Absolute Auto 0.1 X10*3/uL (0.0-0.2); Basophils Percent Auto 0.7 % (0-2); Eosinophils Absolute Auto 0.3 X10*3/uL (0.0-0.4); Hematocrit 35.7 % (37.0-47.0); Hemoglobin 11.3 g/dl (12.0-16.0); Imm Gran Abs Auto 0.12 X10*3/uL (0.00-0.03); Imm Gran Pct Auto 0.9 % (0.0-0.4); Lymphocytes Absolute Auto 1.8 X10*3/uL (1.2-4.9); Lymphocytes Percent Auto 12.8 % (20-40); Mean Corpuscular HGB Conc 31.7 g/dl (31.0-35.0); Mean Corpuscular Hemoglobin 26.5 pg (27.0-33.0); Mean Corpuscular Volume 83.6 fL (80.0-98.0); Mean Platelet Volume 10.6 fL (9.4-12.3); Monocytes Absolute Auto 0.8 X10*3/uL (0.1-1.2); Monocytes Percent Auto 6.2 % (2-11); Neutrophils Absolute Auto 10.6 x10*3/uL (2.0-8.3); Neutrophils Percent Auto 77.4 % (45-73); Platelet Count 372 X10*3/uL (160-400); Red Blood Count 4.27 X10*6/uL (4.20-5.50); Red Cell Distribution Width 18.8 % (11.0-16.0); White Blood Count 13.6 X10*3/uL (4.8-10.8)
[2023-03-26 12:23] LABS: Anion Gap 13 (12-20); Blood Urea Nitrogen 16 mg/dL (9-16); Calcium 9.4 mg/dL (8.4-10.2); Carbon Dioxide 26 mmol/L (22-29); Chloride 108 mmol/L (96-108); Creatinine Clr Calc Pharmacy 48.7; Estimated Glomerular Filt Rate 45; Glucose Random 173 mg/dL (60-115); Lipase 41 U/L (8-78); Potassium 3.4 mmol/L (3.3-5.1); Sodium 144 mmol/L (135-145)
[2023-03-26 12:51] LABS: Vitamin B12 561 pg/mL (200-900)
--- NOTE | 2023-03-26 13:23 | PC.NURSE ---
patient ambulated w/stby assist to bathroom
[2023-03-26 15:23] VITALS: BP 178/92; PULSE 72; RESP 16; TEMP 36.3; O2SAT 99
== END 2023-03-26 15:25 | disposition home or self-care (01) ==
PROVIDERS: Physician Assistant Medical; Emergency Provider Emergency Medicine; PCP Internal Medicine
DX: G89.29 Other chronic pain (principal); M54.50 Low back pain, unspecified; I10 Essential (primary) hypertension; E11.9 Type 2 diabetes mellitus without complications; D50.9 Iron deficiency anemia, unspecified; M06.9 Rheumatoid arthritis, unspecified; M51.36 Other intervertebral disc degeneration, lumbar region
CPT/HCPCS: 36415; 72128; 72131; 80048; 82607; 83690; 83735; 85025; 99283; 99284

== ENCOUNTER 2023-03-30 08:33 | Outpatient (AMB) | payer OTHER, SELFPAY ==
--- NOTE | 2023-03-30 08:47 | AM.OFFVISNUR ---
Intake Intake Visit Reasons: B12 Shot Allergies No Known Allergies Allergy (Verified 02/15/23 13:10) Office Meds cyanocobalamin (vitamin B-12) 1,000 mcg/mL injection solution Performing Provider: Michael Vogel MD [facility] Administered by: Laura Mcqueen RN on 03/30/23 08:47 Dose Route Admin Location Dispensed Lot Number Expiration Date NDC Accountant Controller 1,000 mcg IM left deltoid 1 mL [id number] 09/24/24 [id number] [facility] Coding Assessment & Plan Assessment & Plan Orders: Orders AMB Vitamin B12 Injection Patient Supplied Today E53.8 - Deficiency of other specified B group vitamins
== END 2023-03-30 08:50 | disposition home or self-care (01) ==
PROVIDERS: PCP Internal Medicine; Visit Provider Internal Medicine
DX: E53.8 Deficiency of other specified B group vitamins (principal)
CPT/HCPCS: 96372; J3420

== ENCOUNTER 2023-04-03 08:55 | Outpatient (AMB) | payer OTHER, SELFPAY ==
--- NOTE | 2023-04-03 10:21 | A.SPINEOV_ITS ---
Intake Intake Visit Reasons: ED follow up Allergies No Known Allergies Allergy (Verified 02/15/23 13:10) Assessment & Plan Assessment & Plan (1) Lumbar disc disease with radiculopathy: Code(s): M51.16 - Intervertebral disc disorders with radiculopathy, lumbar region Plan Dear SUNIL Orantes, Thank you for referring Isela to our office today. She is a complex 63-year-old female comes in today with a chief complaint of low back pain for the last 2 years. She also reports associated symptoms of numbness/tingling on the tips of her fingers and toes. She reports that she has been previously evaluated for this issue by both [facility] and [facility] for this issue but was not provided with any meaningful intervention s. She states that new [facility] surgeons told that the surgery would be too big for her to handle and referred her to [facility] for management. [facility] was reportedly unable to get her scheduled for injections. She was seen in the emergency department last week for exacerbation of her low back pain, and is now seeking evaluation by our office for answers/solutions. Isela reports that 2 years ago she had a lithotripsy procedure and began developing back pain shortly thereafter. She found out around the same time that she had a compression fracture in her thoracic spine, and has been reportedly evaluated & treated with pain control for this by her primary care physician. She states that her pain is dull and continuous in nature. She reports radiation of her pain from her low back into her posterior right buttocks down her posterior thigh terminating before her knee. She reports no left-sided lower extremity symptoms. She is tried several forms of at-home pain control including multiple brands of pain relief patches, Tylenol, NSAIDs, CBD cream, ice, heat, and massage therapy. All of these interventions have only provided modest relief. She has been to physical therapy in the past and feels as though it just exacerbated her pain. PMH: History of right-sided carpal tunnel release, left ankle fusion, right k nee arthroplasty, right wrist fusion, left wrist fusion, unspecified right 2nd- 5th MCP joint surgery to increase mobility. PAD, HLD, GERD, Rheumatoid arthritis, asthma, T2DM, osteopenia, fibromyalgia, insomnia, vitamin B12 deficiency, osteoarthritis, hypertension. Social hx: The patient does not smoke, reports no substance use. Medications: Lisinopril, Zetia, vitamin-D, vitamin B12, alendronate, albuterol, hydrochlorothiazide, ibuprofen, lidocaine patches, metformin, methotrexate, nystatin wash, oxycodone, omeprazole, Lyrica, rosuvastatin, tretinoin, Ambien. Allergies: NKDA Physical exam: The patient has severe ulnar deviation of her bilateral pahlanges (H). 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 The rest of her strength is 5/5 intact. She has sensational changes elicited as numbness/tingling on the tips of her fingers and toes. The rest of her sensation is intact. Her reflexes are 2+ hypoactive in her upper and lower extremities. She is able to ambulate well and rises from a seated position without much difficulty. (-) Gooden's, (-) clonus, (-) straight leg raise. Imaging review: MRI of the lumbar spine completed here at [facility], [place] shows a stable compression fracture at T11, severe degenerative disc disease with complete loss of disc height at T12-L1 with [id number] between endplates and a posterior disc bulge. Despite this there is no significant central canal or foraminal stenosis at this level. There is a significant left- sided disc extrusion at L1-2, with no significant central canal or foraminal stenosis. There is mild-moderate central canal stenosis at L3-4, and L4-5. Upon review of her CT imaging it should be noted there is also a fairly signific ant anterior osteophyte complex at T12-L1. Impression: Isela is a pleasant 63-year-old female who comes in today with a chief complaint of low back pain for the last 2 years. She reports being eval uated by both a surgical office and a pain management office in the past and was not able to have any interventions completed by either office. We discussed the possibility of surgery to help relieve her symptoms, specifically targeting the T12-L1 level for resolution of her back pain, however she is relatively averse to the idea of surgery at this time as she has had several surgeries in the past which have been generally unsuccessful. I can not pinpoint a clear etiology of her right-sided radiculopathy based on her imaging, as her symptoms sound like they are in a S1 dermatomal distribution. In regards to her numbness/tingling in her fingertips and toes, we discussed the possibility of this being related to early onset peripheral neuropathy, as it is in a classic stocking-glove distribution in his accompanied by hypoactive reflexes. She was encouraged to continue discussing her symptoms related to her diabetes with her primary care provider. She was offered the possibility of a referral to our pain management clinic to help alleviate some of her pain symptoms for the time being, which she was agreeable to. I will be referring her up to our pain management Clinic here at [facility], [place] for evaluation and injection / non invasive intervention recommendations. She was encouraged to reach back out to our office in the future if she would like to pursue a surgical intervention to solve her pain. Thank you for allowing us to care for your patient. The total time spent with this visit with this patient was 70 minutes reviewing history, physical exam, MRI imaging review, and implementation of treatment plan or further diagnostic testing Osman Murrell MD,PhD [facility] [place] Coding Level of Care Code New Pt Level 5 (35019) Diagnoses Lumbar disc disease with radiculopathy M51.16
== END 2023-04-03 11:58 | disposition home or self-care (01) ==
PROVIDERS: PCP Internal Medicine; Visit Provider Physician Assistant
DX: M51.16 Intervertebral disc disorders with radiculopathy, lumbar region (principal)
CPT/HCPCS: 99205

== ENCOUNTER → 2023-04-03 08:55 | Outpatient (BNVA) | payer OTHER, SELFPAY | PROVIDERS: PCP Internal Medicine; Visit Provider Physician Assistant | DX: M51.16 Intervertebral disc disorders with radiculopathy, lumbar region (principal) | CPT/HCPCS: 99202 ==

== ENCOUNTER 2023-04-12 09:32 | Outpatient (AMB) | payer OTHER, SELFPAY ==
--- NOTE | 2023-04-12 10:32 | MHC.OFFVIS ---
Intake Vital Signs 04/12/23 10:36 Height 5 ft 2 in Weight 187 lb BMI 34.2 BP 138/92 H Blood Pressure Location Lt brachial Position Sitting Respiration 16 Pulse 104 H Pulse Source Pulse Oximeter Pulse Oximetry (%) 99 Oxygen Delivery Method Room Air Intake Visit Reasons: Intervertebral disc disorders w/radiculopathy/lvm Intake Note: Patient comes in for initial visit was referred by spine center. Reports pain 10/10. Allergies No Known Allergies Allergy (Verified 04/12/23 10:32) HPI HPI Comments History of Present Illness Details Ms. Isela Frausto is very pleasant 63 years old female who presents in my office with complains on pain in the lower back. He also complains on tingling and burning sensation in bilateral lower extremities. She reports minor pain radiation into the left buttock and posterior upper thigh but not below that level. She reports that flexing back forward and flexing back backwards aggravate her pain over flexing back backwards aggravate her pain more than flexing forward. She reports pain 10/10 in intensity today. She can not sleep normally can not do activities of daily living can not care herself can not function normally she is on permanent disability. She reports that heat applications make her pain better. In terms of tissue damage he reports her pain is pulsing, throbbing, pounding, sharp, cutting, lacerating, dull, sore, hurting, aching, heavy sensation tiring, exhausting. She had multiple studies of her lower back including x-rays CT scan and MRIs. The MRI report dictated as below. Physical therapy was performed less than 1 year ago with [facility] this was not the 1st attempt to treat her pain with arthritis therapy and again it did not help her pain. She reports that in the past she received prednisone 10 mg at that helps her pain moderately. Her past medical history significant for rheumatoid arthritis, diabetes, anemia, asthma, headache. Her past surgical history significant for tonsillectomy tubal ligations fusion of the right hand and wrist or operation all their on the right hand knuckles, fusion of the left hand wrist fusion of the right ankle hysterectomy, right elbow surgery total knee replacement on the right leg right angle and toe fusion right ankle and toe instrumentation removal. The patient went for consultation with Dr. Murrell and she was offered a surgery however she is afraid to go for a surgery and she wants to try interventional pain management options. [facility] Medical History Venous insufficiency of both lower extremities Abnormal bruising Obesity (BMI 30-39.9) Anxiety Insomnia GERD (gastroesophageal reflux disease) Vitamin D deficiency Ureterolithiasis Neuropathy Varicose veins of bilateral lower extremities with pain Rheumatoid arthritis Cervical spondylosis with radiculopathy Asthma Iron deficiency anemia, unspecified Vitamin B12 deficiency Hyperlipidemia Hypertension, essential, benign Diabetes mellitus Surgical History Hx of lithotripsy History of surgery on left wrist History of surgery on right wrist History of arthroplasty of left ankle History of arthroplasty of right ankle S/P VANESSA-BSO (total abdominal hysterectomy and bilateral salpingo-oophorectomy) History of arthroplasty of right knee (~2008) Family History Father Chronic mental illness Mother Diabetes Hypertension Stroke Sister Heart disease Diabetes Social History Household Members: Family Housing: Apartment Alcohol intake: never Patient Tobacco Use Status: Former Tobacco user Quit Date: 2014 Years Smoked: quit 6 years ago e-Cigarette/Vaping Use: Never Used Second Hand Smoke Exposure: No service: No Current occupational status: disabled Cognitive needs: No (cane) Hearing needs: No Vision needs: Yes (glasses) Review of Systems Const Denies chills, Reports fatigue, Denies fever(s) and Denies headache(s) ENT Reports Normal hearing present, Denies dysphagia, Denies dizziness, Denies otalgia, Denies headache(s), Reports neck pain, Denies odynophagia and Denies sore throat Card Denies chest pain, Denies palpitations and Denies dyspnea Resp Denies cough and Denies dyspnea GI Denies abdominal pain, Denies constipation, Denies dysphagia, Denies heartburn, Denies diarrhea, Denies nausea, Denies odynophagia and Denies vomiting Denies nocturia, Denies dysuria and Denies urinary urgency Musc Reports back pain (over the lumbar spine - chronic), Reports arthralgias (involving multiple joints; increased pain over the right hip), Reports neck pain, Reports radiating pain into limb (bilaterally) and Reports tingling (over both lower extremities, on and off) Skin/Breast Denies rash Neuro Reports Normal hearing present, Denies Abnormal speech present, Denies dizziness, Denies headache(s), Reports radicular pain (in both lower extremities), Denies Sensory deficit (Neuro) and Reports tingling (over both lower extremities, on and off) Endo Reports fatigue and Denies palpitations Physical Exam Vital Signs: Last Vital Signs Pulse 104 H 04/12/23 10:36 Resp 16 04/12/23 10:36 BP 138/92 H 04/12/23 10:36 Pulse Ox 99 04/12/23 10:36 Oxygen Delivery Method Room Air 04/12/23 10:36 BMI result Body Mass Index 34.2 Const General: no acute distress Nutritional Appearance: obese Orientation/consciousness: patient oriented x3 Eyes General: appearance normal, both eyes and all related structures Pupils: Equal, round and reactive pupils present EOM: EOMs intact bilaterally Neck Neck: Yes full ROM Chest Chest palpation & inspection: normal inspection of the chest Resp Effort & Inspection: normal respiratory effort, able to speak in complete sentences, normal respiratory pattern, no audible wheezes and no cough Cardio Jugular venous distension: no JVD GI Inspection: Yes normal to inspection Back/Spine/Pelvis Other: Patient can not ambulate without assistance. Unable to examine the strength of the feet due to previous history of fusions. SLR is negative bilaterally. Hernan test is negative bilaterally. Valsalva maneuvers at the best equivocal. Flexing forward and flexing backwards aggravate his pain. Tenderness on palpation in paraspinal spinal region of the lumbar spine mostly in the projection of the central lumbar spine. Loading test is positive bilaterally. Very minimal if any tenderness on palpation in the projection of bilateral sacroiliac joints. Neuro General: patient oriented x3 and gait normal Cranial nerves: Yes CN's II-XII intact bilaterally, Yes Equal, round and reactive pupils present, Yes Normal hearing present and Yes Ability to bilaterally elevate shoulders present Speech: No Abnormal speech present Gait exam (Neuro): Normal gait present Motor exam (neuro): 5/5 motor strength present throughout Sensory Exam: No Sensory deficit (Neuro) Extrem General: No pedal edema Psych Speech and movement: Normal speech and movement present Affect: normal affect Attitude: cooperative Thought process: Normal thought process present Thought content: Normal thought content present Insight: Good insight present (Psych) Judgement: Good judgement present (Psych) Results Reviewed Results Reviewed: CT thoracic spine and CT lumbar spine without contrast. 03/26/2023 CLINICAL INDICATIONS: Worsening mid and lower back pain. COMPARISON: MRI lumbar spine 01/01/2023. TECHNIQUE: 2 mm thin axial and reformatted 2 mm thin sagittal and coronal images of thoracic and lumbar spine were obtained. DLP [id number]. This CT examination was performed using dose optimization technique as appropriate, variously including the following: Automated exposure control Adjustment of MA and/or KV according to patient size(this includes techniques or standardized protocols for targeted exams where dose is matched to indication/reason for exam; extremities or head. Use of iterative reconstruction techniques. FINDINGS: THORACIC SPINE: On sagittal reconstructed images is maintained thoracic kyphosis. The vertebral heights and alignment is normal except for mild superior endplate deformity T11 vertebra.. There is mild loss of T7-T8, T8-T9, T9-T10, T11-T12 and T12/L1 disc levels with ventral spondylosis in mid and lower dorsal spine. No aggressive lytic or sclerotic process seen. The facet joints are symmetrical and normal. At T7-T8 disc level there is a disc osteophyte bulge complex extending to the anterior epidural space but no spinal canal stenosis seen. There is mild narrowing of bilateral neural foramina from for mild osteophytosis. At T9-T10 disc level there is left para midline posterior spondylosis/bulge complex mildly narrowing the left neural foramina. The right neural foramina appears patent. At T12-L1 disc level there is endplate sclerosis, without disc bulge or herniation. The neural foramina patent bilaterally. The paravertebral soft tissues are normal. Minimal platelike atelectasis seen in the left lung left lower lobe. The right lung base is clear. LUMBAR SPINE: There is normal lumbar lordosis. There is grade 1 anterolisthesis L4 over L5. Rest of the vertebral alignment and vertebral heights are normal. The disc heights are preserved. At T12-L1 disc level there is loss of disc height with moderate ventral spondylosis, endplate sclerosis with no spinal canal stenosis. The neural foramina are patent bilaterally. At L1-L2, L2-L3, L3-L4 disc levels are unremarkable. At L4-L5 disc level there is a broad-based diffuse bulge eccentric to the right with moderate spinal canal stenosis. There is bilateral moderate facet joint and ligament femoral hypertrophy with mild bilateral neural foraminal narrowing. At L5-S1 disc level there is no suggestion disc bulge, herniation or spinal canal stenosis. The neural foramina are patent bilaterally. No aggressive lytic process seen. The paravertebral soft tissues are normal. There are nonobstructive bilateral small radiopaque renal calculi no hydronephrosis seen. IMPRESSION: There is no visible acute fracture or dislocation in dorsal lumbar spine. There is superior endplate deformity T11 vertebra likely old. There is a disc osteophyte complex T7-T8 and T9-T10 disc levels. There is no spinal canal stenosis. Grade 1 anterolisthesis L4 over L5. There is mild disc bulge eccentric to the right at the L4-L5 disc level resulting in canal stenosis and bilateral mild neural foraminal narrowing. MR LUMBAR SPINE WITHOUT CONTRAST 02/20/2023 CLINICAL INFORMATION: Collapsed vertebra, not elsewhere classified, thoracic region. COMPARISON: Plain films of the lumbar spine 01/27/2022. MRI scan of the lumbar spine 01/03/2018. TECHNIQUE: MRI of the lumbar spine was obtained using routine sequences without contrast. FINDINGS: VERTEBRAL BODIES AND PARASPINAL STRUCTURES: There is a mild levoscoliosis. There is a 3 mm grade 1 anterolisthesis of L4 on L5. There is a mild retrolisthesis of T12 on L1. There is mild increased kyphosis at the level of T12-L1, unchanged. There is marked narrowing of intervertebral disc height with degenerative endplate contour changes and moderate edematous endplate signal at T12-L1. There appears to be further loss of vertebral body height of T11 centrally of approximately 25%. There are edematous endplate signal changes superiorly with invagination of disc into the superior endplate, consistent with a subacute compression fracture. Overall, marrow signal is homogenous. There are bilateral extrarenal pelves. There is a cyst laterally at the midpole of the right kidney. The visualized pelvic structures are unremarkable. CONUS MEDULLARIS AND CAUDA EQUINA: Normal, terminating at the level of L1. The lower thoracic spinal cord appears normal. The cauda equina nerve roots and filum terminale appear normal. SPINAL LEVELS: There is multilevel dorsal epidural lipomatosis. T10-T11: There is mild bilateral facet arthropathy. There is shallow posterior protrusion of the superior vertebral body of T11 which flattens the ventral thecal sac, but there is no cord compression or central stenosis. There are disc osteophytes extending into the right greater than left neural foramina. T11-T12: There is mild bilateral facet arthropathy. Disc contour is normal. There is no central stenosis or foraminal narrowing. T12-L1: The facet joints appear normal. There is a broad-based posterior disc protrusion with an extruded component extending behind the body of T12 centrally and to the right of midline, increased compared to prior imaging. There is no cord compression or central stenosis. The neural foramina are patent bilaterally. L1-L2: There is mild bilateral facet arthropathy. There is a left-sided disc extrusion which extends into the left lateral recess of L1 and into the left subarticular recess. There is posterior displacement of the traversing left L2 nerve root, and there is compression of the thecal sac anterolaterally. There is no foraminal nerve root impingement. L2-L3: There is mild bilateral facet arthropathy. Disc contour is normal. There is no central stenosis or foraminal narrowing. L3-L4: There is mild to moderate bilateral facet arthropathy with ligamenta flava hypertrophy. There is a shallow posterior disc protrusion with flattening of the ventral thecal sac but there is no cord compression or central stenosis. There is no foraminal nerve root impingement. L4-L5: There is markedly severe bilateral facet arthropathy with ligamenta flava hypertrophy and facet joint effusions. There is mild unroofing of the disc as a result of the anterolisthesis, and there is flattening of the ventral thecal sac with narrowing of the bilateral subarticular recesses. There is moderate central stenosis. There is a right foraminal disc protrusion with mass effect on the exiting right L4 nerve root. L5-S1: There is moderate bilateral facet arthropathy with ligamenta flava hypertrophy. There is a small cyst dorsal to the right facet joint. There appears to be a cyst in the anterior spinous process of L5, which is a new finding compared to the prior MRI scan. There is a small left paracentral disc protrusion without significant mass effect on the thecal sac and there is no central stenosis. There are small inferior foraminal disc protrusions bilaterally without definite impingement on the exiting L5 nerve roots. MR/MR lumbar spine wo con IMPRESSION: 1. There are sequelae of a subacute compression fracture of the superior body of T11 with loss of approximately 25% vertebral body height, new compared to remote prior imaging. There are edematous endplate signal changes at T12-L1 with narrowing of intervertebral disc height. If indicated, follow-up MRI scan of the thoracic spine could be obtained. 2. At L1-L2 there is a left-sided disc extrusion extending caudad into the left lateral recess of L1 and into the left subarticular recess with posterior displacement of the traversing left L2 nerve root. There is no central stenosis or foraminal nerve root impingement. 3. At L4-L5 there is markedly severe facet arthropathy. There is flattening of the ventral thecal sac with narrowing of the bilateral subarticular recesses. There is moderate central stenosis. There is a right foraminal disc protrusion with mass effect on the exiting right L4 nerve root. 4. Spondylosis and facet arthropathic changes are also demonstrated at multiple other levels as described above. Assessment & Plan Assessment & Plan (1) Disc degeneration, lumbar: Code(s): M51.36 - Other intervertebral disc degeneration, lumbar region (2) Spondylosis of lumbar region without myelopathy or radiculopathy: Code(s): M47.816 - Spondylosis without myelopathy or radiculopathy, lumbar region (3) Rheumatoid arthritis: Comment: Is on Prednisone 5 mg-20 mg daily, Methotrexate tablets 2.5 mg 6 tablets once a day on Sundays. Rinvoq ER 15 mg qd has been discontinued. Code(s): M06.9 - Rheumatoid arthritis, unspecified Qualifiers: Rheumatoid arthritis location: unspecified site Rheumatoid factor presence: with rheumatoid factor Qualified Code(s): M05.9 - Rheumatoid arthritis with rheumatoid factor, unspecified (4) Diabetic neuropathy associated with diabetes mellitus due to underlying condition: Code(s): E08.40 - Diabetes mellitus due to underlying condition with diabetic neuropathy, unspecified Plan I do not see any evidence of radiculopathy in this patient. Her pain is not radiating down to bilateral lower extremities lower than the mid thigh and SLR is negative. The burning pins and needle sensation in bilateral lower feet most likely related to her rheumatoid arthritis as well as diabetic neuropathy. She has very prominent facet arthropathy in mid lumbar spine on images which is very much coincides with physical exam demonstrating positive loading test and severe tenderness on palpation in paraspinal regions of the lumbar spine. I offered this patient bilateral diagnostic L2-L3 L4 medial branch blocks to establish possibly diagnosis of this patient in offer her definitive procedures to help her pain. Patient Instructions: I here by testify that I spent 48 minutes in conversation with this patient explain her her diagnosis and potential ways of treatment as well as evaluating prior records, evaluating prior studies, planning her care and organizing this note. Coding Level of Care Code New Pt Level 4 (44737) Diagnoses Disc degeneration, lumbar M51.36 Spondylosis of lumbar region without myelopathy or radiculopathy M47.816 Rheumatoid arthritis with positive rheumatoid factor, involving unspecified site M05.9 Rheumatoid arthritis location: unspecified site Rheumatoid factor presence: with rheumatoid factor Diabetic neuropathy associated with diabetes mellitus due to underlying condition E08.40
[2023-04-12 10:36] VITALS: BP 138/92; PULSE 104; RESP 16; O2SAT 99; BMI 34.2
== END 2023-04-12 10:36 | disposition home or self-care (01) ==
PROVIDERS: PCP Internal Medicine; Referring Provider Physician Assistant; Visit Provider Anesthesiology
DX: M51.36 Other intervertebral disc degeneration, lumbar region (principal); M47.816 Spondylosis without myelopathy or radiculopathy, lumbar region; M05.9 Rheumatoid arthritis with rheumatoid factor, unspecified; E08.40 Diabetes mellitus due to underlying condition with diabetic neuropathy, unspecified
CPT/HCPCS: 99204

== ENCOUNTER → 2023-04-12 09:32 | Outpatient (BNVA) | payer OTHER, SELFPAY | PROVIDERS: PCP Internal Medicine; Referring Provider Physician Assistant; Visit Provider Anesthesiology | DX: M51.36 Other intervertebral disc degeneration, lumbar region (principal); M47.816 Spondylosis without myelopathy or radiculopathy, lumbar region; M05.9 Rheumatoid arthritis with rheumatoid factor, unspecified; E08.40 Diabetes mellitus due to underlying condition with diabetic neuropathy, unspecified | CPT/HCPCS: 99202 ==

== ENCOUNTER 2023-05-03 08:07 | Outpatient (REF) | payer OTHER, SELFPAY ==
[2023-05-03 08:09] VITALS: BP 130/77; PULSE 100; RESP 18; TEMP 36.7; O2SAT 98
[2023-05-03] MEDS: Iron Sucrose Complex 200 MG in 0.9 % Sodium Chloride 100 ML 440 MG IV (08:30)
== END 2023-05-03 08:08 | disposition home or self-care (01) ==
LOC: HO.MDS 08:07
PROVIDERS: Visit Provider Internal Medicine Medical Oncology
DX: D50.9 Iron deficiency anemia, unspecified (principal)
CPT/HCPCS: 96365; J1756

== ENCOUNTER 2023-05-03 08:59 | Outpatient (AMB) | payer OTHER, SELFPAY ==
--- NOTE | 2023-05-03 09:10 | MHC.PC.OV ---
Intake Visit Reasons: b-12 shot Allergies No Known Allergies Allergy (Verified 04/12/23 10:32) Tobacco use date assessed: 02/15/23 [facility] Medical History Venous insufficiency of both lower extremities Abnormal bruising Obesity (BMI 30-39.9) Anxiety Insomnia GERD (gastroesophageal reflux disease) Vitamin D deficiency Ureterolithiasis Neuropathy Varicose veins of bilateral lower extremities with pain Rheumatoid arthritis Cervical spondylosis with radiculopathy Asthma Iron deficiency anemia, unspecified Vitamin B12 deficiency Hyperlipidemia Hypertension, essential, benign Diabetes mellitus Surgical History Hx of lithotripsy History of surgery on left wrist History of surgery on right wrist History of arthroplasty of left ankle History of arthroplasty of right ankle S/P VANESSA-BSO (total abdominal hysterectomy and bilateral salpingo-oophorectomy) History of arthroplasty of right knee (~2008) Family History Father Chronic mental illness Mother Diabetes Hypertension Stroke Sister Heart disease Diabetes Social History Household Members: Family Housing: Apartment Alcohol intake: never Patient Tobacco Use Status: Former Tobacco user Quit Date: 2014 Years Smoked: quit 6 years ago e-Cigarette/Vaping Use: Never Used Second Hand Smoke Exposure: No service: No Current occupational status: disabled Cognitive needs: No (cane) Hearing needs: No Vision needs: Yes (glasses) Questionnaire Thrive Questionnaire Date Thrive assessed: 02/15/23 BALJIT-7 AMB Questionnaire BALJIT-7 Date BALJIT - 7 assessed: 02/15/23 Source: Developed by Drs. Fredy Mota, Ayanna Sharp, Gaston Garcia and colleagues, with an educational stephanie from [employer]. Physical exam (Primary Care) Tobacco/Smoking Status: Tobacco use Status Tobacco use date assessed 02/15/23 05/03/23 09:11 Patient Tobacco Use Status Former Tobacco user 05/03/23 09:11 e-Cigarette/Vaping Use Never Used 05/03/23 09:11 Thrive Assessment: Date of Thrive Assessment Date Thrive assessed 02/15/23 05/03/23 09:11 Assessment and Plan Assessment & Plan Orders: Orders AMB Vitamin B12 Injection Patient Supplied Today E53.8 - Deficiency of other specified B group vitamins Medications: New cyanocobalamin (vitamin B-12) 1,000 mcg IM ONCE 1 mL 0RF E53.8 - Deficiency of other specified B group vitamins Coding
--- NOTE | 2023-05-03 09:13 | AM.OFFVISNUR ---
Intake Intake Visit Reasons: b-12 shot Allergies No Known Allergies Allergy (Verified 04/12/23 10:32) Office Meds cyanocobalamin (vitamin B-12) 1,000 mcg/mL injection solution Performing Provider: Michael Vogel MD [facility] Administered by: Silvia Olivera RN on 05/03/23 09:13 Dose Route Admin Location Dispensed Lot Number Expiration Date [facility] [employer] 1,000 mcg IM 1 mL [id number] 09/24/24 26570-410-42 [facility] C[facility] Assessment & Plan Assessment & Plan Orders: Orders AMB Vitamin B12 Injection Patient Supplied Today E53.8 - Deficiency of other specified B group vitamins
== END 2023-05-03 09:25 | disposition home or self-care (01) ==
PROVIDERS: PCP Internal Medicine; Visit Provider Internal Medicine
DX: E53.8 Deficiency of other specified B group vitamins (principal)
CPT/HCPCS: 96372; J3420

== ENCOUNTER 2023-05-18 08:22 | Outpatient (REF) | payer OTHER, SELFPAY ==
[2023-05-18 08:23] VITALS: BP 166/90; PULSE 100; RESP 20; TEMP 36; O2SAT 99
[2023-05-18] MEDS: Iron Sucrose Complex 200 MG in 0.9 % Sodium Chloride 100 ML 440 MG IV (08:34)
== END 2023-05-18 08:23 | disposition home or self-care (01) ==
LOC: HO.MDS 08:22
PROVIDERS: Visit Provider Internal Medicine Medical Oncology
DX: D50.9 Iron deficiency anemia, unspecified (principal)
CPT/HCPCS: 96374; J1756

== ENCOUNTER 2023-05-21 08:15 | Outpatient (REF) | payer OTHER, SELFPAY ==
[2023-05-21 08:18] VITALS: BP 125/83; PULSE 105; RESP 20; TEMP 36.9; O2SAT 97
[2023-05-21] MEDS: Iron Sucrose Complex 200 MG in 0.9 % Sodium Chloride 100 ML 440 MG IV (08:32)
== END 2023-05-21 08:16 | disposition home or self-care (01) ==
LOC: HO.MDS 08:15
PROVIDERS: Visit Provider Internal Medicine Medical Oncology
DX: D50.9 Iron deficiency anemia, unspecified (principal)
CPT/HCPCS: 96365; J1756

== ENCOUNTER 2023-06-01 07:40 | Outpatient (REF) | payer OTHER, SELFPAY | END 2023-06-01 07:41 | disposition home or self-care (01) | LOC: HO.MAMMO 07:40 | PROVIDERS: PCP Internal Medicine; Visit Provider Internal Medicine | DX: Z12.31 Encounter for screening mammogram for malignant neoplasm of breast (principal) | CPT/HCPCS: 77063; 77067 ==

== ENCOUNTER → 2023-06-01 08:00 | Outpatient (BNV) | payer OTHER, SELFPAY | PROVIDERS: PCP Internal Medicine; Visit Provider Radiology Diagnostic Radiology | DX: Z12.31 Encounter for screening mammogram for malignant neoplasm of breast (principal) | CPT/HCPCS: 77063; 77067 ==

== ENCOUNTER 2023-06-04 08:10 | Outpatient (AMB) | payer OTHER, SELFPAY ==
--- NOTE | 2023-06-04 09:12 | AM.OFFVISNUR ---
Intake Intake Visit Reasons: B12 Shot Allergies No Known Allergies Allergy (Verified 04/12/23 10:32) Office Meds cyanocobalamin (vitamin B-12) 1,000 mcg/mL injection solution Performing Provider: Michael Vogel MD [facility] Administered by: Hernan Huerta RN on 06/04/23 08:45 Dose Route Admin Location Dispensed Lot Number Expiration Date [employer] 1,000 mcg IM left deltoid 1 mL [id number] 09/26/24 97406-459-34 [facility] Comments: consented for b12 and tolerated well. Coding Assessment & Plan Assessment & Plan Orders: Orders AMB Vitamin B12 Injection Patient Supplied Today E53.8 - Deficiency of other specified B group vitamins Medications: New cyanocobalamin (vitamin B-12) 1,000 mcg IM ONCE 1 mL 0RF E53.8 - Deficiency of other specified B group vitamins
== END 2023-06-04 08:45 | disposition home or self-care (01) ==
PROVIDERS: PCP Internal Medicine; Visit Provider Internal Medicine
DX: E53.8 Deficiency of other specified B group vitamins (principal)
CPT/HCPCS: 96372; J3420

== ENCOUNTER 2023-08-16 09:21 | Outpatient (REF) | payer OTHER, SELFPAY ==
[2023-08-16 10:10] LABS: MANUAL DIFF FLAG NO
[2023-08-16 11:00] LABS: Basophils Absolute Auto 0.1 X10*3/uL (0.0-0.2); Basophils Percent Auto 0.5 % (0-2); Eosinophils Absolute Auto 0.1 X10*3/uL (0.0-0.4); Eosinophils Percent Auto 0.3 % (0-4); Hematocrit 39.6 % (37.0-47.0); Hemoglobin 13.1 g/dl (12.0-16.0); Imm Gran Abs Auto 0.53 X10*3/uL (0.00-0.03); Imm Gran Pct Auto 3.5 % (0.0-0.4); Lymphocytes Absolute Auto 2.1 X10*3/uL (1.2-4.9); Lymphocytes Percent Auto 13.9 % (20-40); Mean Corpuscular HGB Conc 33.1 g/dl (31.0-35.0); Mean Corpuscular Hemoglobin 29.2 pg (27.0-33.0); Mean Corpuscular Volume 88.4 fL (80.0-98.0); Mean Platelet Volume 11.1 fL (9.4-12.3); Monocytes Absolute Auto 1.2 X10*3/uL (0.1-1.2); Monocytes Percent Auto 7.7 % (2-11); Neutrophils Absolute Auto 11.3 x10*3/uL (2.0-8.3); Neutrophils Percent Auto 74.1 % (45-73); Platelet Count 321 X10*3/uL (160-400); Red Blood Count 4.48 X10*6/uL (4.20-5.50); Red Cell Distribution Width 17.8 % (11.0-16.0); White Blood Count 15.2 X10*3/uL (4.8-10.8)
[2023-08-16 11:05] LABS: Appearance Urine Clear; Color Urine Yellow; Glucose Urine UA Negative (Negative); Leukocyte Esterase Urine Trace (Negative); Nitrite Urine Negative (Negative); PH 6.5 (5.0-9.0); UMIC TRIGGER UACC YES; Urine Blood Negative (Negative); Urine Ketones Trace mg/dL (Negative); Urine Protein Trace mg/dL (Neg-Trace)
[2023-08-16 11:09] LABS: Estimated Average Glucose 151 mg/dL; Hemoglobin A1c % 6.9 % (<6.0)
[2023-08-16 11:09] LABS: Bacteria Urine None Seen (None Seen); Hyaline Casts Urine 0-2 /LPF (0-2); RBC Urine 0-2 /HPF (0-2); Squamous Epithelial Cell Urine 0-2 /HPF (0-2); WBC Urine 0-5 /HPF (0-5)
[2023-08-16 11:38] LABS: B Type Natriuretic Peptide 88 pg/mL (<100)
[2023-08-16 11:39] LABS: Creatinine Urine 177.78 mg/dL; Microalbum/Creatinine Ratio Ur 7.3 ug/mg cr (<30)
[2023-08-16 11:43] LABS: Erythrocyte Sedimentation Rate 23 MM/HR (0-20)
[2023-08-16 11:55] LABS: Alanine Aminotransferase 9 U/L (0-31); Albumin Level 3.7 g/dL (3.5-5.0); Alkaline Phosphatase 75 U/L (39-117); Anion Gap 12 (12-20); Aspartate Amino Transferase 10 U/L (5-31); Bilirubin Total 0.5 mg/dL (0.0-1.0); Blood Urea Nitrogen 10 mg/dL (9-16); Calcium 9.4 mg/dL (8.4-10.2); Carbon Dioxide 32 mmol/L (22-29); Chloride 107 mmol/L (96-108); Estimated Glomerular Filt Rate > 60; Glucose Fasting 100 mg/dL (60-99); Glucose Random 100 mg/dL (60-115); Potassium 3.7 mmol/L (3.3-5.1); Sodium 147 mmol/L (135-145); Total Protein 6.7 g/dL (6.5-8.0)
[2023-08-16 12:11] LABS: TSH reflex Free T4 1.22 uIU/mL (0.32-4.0); Vitamin D 25-OH Total 25.4 ng/mL (>30)
[2023-08-16 12:20] LABS: Folate 7.1 ng/mL (> or = 4.0); Vitamin B12 461 pg/mL (200-900)
[2023-08-16 12:41] LABS: Rheumatoid Factor 953.7 IU/mL (<15.0)
== END 2023-08-16 09:22 | disposition home or self-care (01) ==
LOC: HO.XRAY 09:21
PROVIDERS: PCP Internal Medicine; Visit Provider Internal Medicine
DX: E78.00 Pure hypercholesterolemia, unspecified (principal); I10 Essential (primary) hypertension; M06.9 Rheumatoid arthritis, unspecified; M25.531 Pain in right wrist; M25.431 Effusion, right wrist; R30.0 Dysuria; R60.9 Edema, unspecified; E11.9 Type 2 diabetes mellitus without complications; D64.9 Anemia, unspecified; E55.9 Vitamin D deficiency, unspecified; E53.8 Deficiency of other specified B group vitamins
CPT/HCPCS: 36415; 80053; 81001; 81003; 82043; 82306; 82570; 82607; 82746; 83036; 83880; 84443; 85025; 85652; 86431

== ENCOUNTER 2023-08-17 09:34 | Outpatient (REF) | payer OTHER, SELFPAY ==
--- NOTE | ~2023-08-17 | XR_ITS ---
EXAMINATION: XR BILATERAL FOOT CLINICAL INFORMATION: Pain in the right foot. Pain in the left foot. COMPARISON: X-rays of the right ankle November 2020 and right foot July 2010. TECHNIQUE: 3 views of each foot. FINDINGS: Right Foot: Postop changes with 2 screws extending from the navicular to the talus compatible with fusion surgery, unchanged compared to prior. Dense osseous bridging across the expected joint region. Hardware intact without hardware fracture or surrounding lucency. Mild arthrosis of the navicular cuneiform joint with marginal osteophyte noted dorsally, unchanged. Remaining bone and joints in the midfoot unremarkable. 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 Remaining bone and joints unremarkable. Arterial calcification present. Calcification in the region of the plantar fascia in the midfoot increased compared to prior. Left Foot: Postop changes related to talonavicular fusion with a single screw in place extending through the expected region of the joint which demonstrates dense osseous bridging. Mild arthrosis of the naviculocuneiform joint manifested by small marginal osteophytes. First Metatarsophalangeal Joint: Possible fusion across the joint versus severe joint space narrowing. This is new compared to the prior x-ray in 2010. Increased calcification along the plantar aspect of the foot likely plantar fasciitis. XR/XR foot LT min 3V IMPRESSION: RIGHT FOOT: 1. Stable postoperative changes. Mild arthrosis of the navicular cuneiform joint, unchanged. 2. 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 3. Increasing calcification along the plantar aspect of the plantar fascia perhaps related to old partial tear or plantar fasciitis. LEFT FOOT: 1. Postop changes related to talonavicular fusion. 2. Mild arthrosis of the naviculocuneiform joint. Narrowed first metatarsophalangeal joint compatible with severe joint space narrowing or joint effusion. New compared to prior. 3. Calcification in the region of the plantar fascia in the midfoot perhaps related to old plantar fascia tear or plantar fasciitis.
== END 2023-08-17 09:35 | disposition home or self-care (01) ==
LOC: HO.XRAY 09:34
PROVIDERS: PCP Internal Medicine; Visit Provider Internal Medicine
DX: M79.671 Pain in right foot (principal); M79.672 Pain in left foot
CPT/HCPCS: 73630

== ENCOUNTER 2023-09-11 09:16 | Outpatient (AMB) | payer OTHER, SELFPAY ==
--- NOTE | 2023-09-11 09:17 | A.OFFPC_ITS ---
Vital Signs 09/11/23 09:21 Height 5 ft 2 in Weight 194 lb 6 oz BMI 35.5 BP 122/74 Blood Pressure Location Lt brachial Position Sitting Pulse 100 Pulse Source Pulse Oximeter Pulse Oximetry (%) 94 Oxygen Delivery Method Room Air Intake Visit Reasons: FUP- NEEDS A1C/PHQ9/BP RECHECK IF OUT OF RANGE Intake Note: Patient is here to follow up on DM, LDDD, HTN, PAD. Request for B12 shot. Supervisor [employer] Required: No Vehicle Fuel Systems Converter: Not Required per policy Accompanied by: Self / Same As Patient Allergies No Known Allergies Allergy (Verified 09/11/23 09:33) Medication List - Last Reconciled 09/11/23 by Michael Vogel MD albuterol sulfate 2.5 mg (3 mL) inhalation Q4-6H PRN alendronate 70 mg PO QWEEK blood sugar diagnostic (FreeStyle Test strips) 1 strip miscellaneous TID cyanocobalamin (vitamin B-12) 1,000 mcg IM Q4W ergocalciferol (vitamin D2) 1,250 mcg PO QWEEK lancets (FreeStyle Lancets) As directed three times per day lisinopril 20 mg PO DAILY metformin 1,000 mg PO BID nystatin 10 mL buccal TID 10 days Nystop (nystatin) 1 appl topical TID NS omeprazole 20 mg PO DAILY 90 days oxycodone 30 mg PO Q12H 28 days pregabalin 150 mg PO TID 30 days rosuvastatin (Crestor) 40 mg PO DAILY 90 days Ventolin HFA 90 mcg/actuation (albuterol sulfate) 2 puffs inhalation Q6H PRN NS zolpidem 10 mg PO BEDTIME PRN 30 days Tobacco use date assessed: 09/11/23 Dental Screening Dental Screen Date: 09/11/23 Did you have a dental visit in the last 12 months?: No Did you have a dental problem in the last 6 months where you did not have access to dental care?: No Was dental information given to patient?: No (Dentures) HPI FUP- NEEDS A1C/PHQ9/BP RECHECK IF OUT OF RANGE HPI Details Patient comes in today for her follow up visit - was last seen here on 02/15/2023 States that she has been experiencing a significant increased in her pain lately States that her increased pain is all over but especially in her feet and legs She has been receiving injections into her lower back from [facility] lately, which she states help at least relieve the radicular pains that she has in her right leg Also relates (+) recurrent swelling in her hands and feet lately She is still on Rasuvo 20 mg SQ once a week and low dose prednisone daily - sees Dr. [facility] She denies any fever, headaches or dizziness lately Denies any chest pains, no SOB No nausea/vomiting, no abdominal pain but she continues to feel a lump over the left side of the abdomen on and off She had an abdominal US done last year that did not reveal any findings that can help explain her lump No change in bowel habits noted Relates that she has never really had a complete colonoscopy done in the past Recalls that her first one had to be aborted because she started bleeding and her second procedure was cancelled on the morning of the day of the procedure because the doctor reportedly had a family emergency then and she never scheduled one again since She had her follow up labs done a few weeks ago - to discuss her results Needs her B12 injection today [facility] Medical History (Updated 09/11/23 @ 10:25 by Michael Vogel MD) Mixed hyperlipidemia Venous insufficiency of both lower extremities Abnormal bruising Obesity (BMI 30-39.9) Anxiety Insomnia GERD (gastroesophageal reflux disease) Vitamin D deficiency Ureterolithiasis Neuropathy Varicose veins of bilateral lower extremities with pain Rheumatoid arthritis Cervical spondylosis with radiculopathy Asthma Iron deficiency anemia, unspecified Vitamin B12 deficiency Hyperlipidemia Hypertension, essential, benign Diabetes mellitus Surgical History Hx of lithotripsy History of surgery on left wrist History of surgery on right wrist History of arthroplasty of left ankle History of arthroplasty of right ankle S/P VANESSA-BSO (total abdominal hysterectomy and bilateral salpingo-oophorectomy) History of arthroplasty of right knee (~2008) Family History Father Chronic mental illness Mother Diabetes Hypertension Stroke Sister Heart disease Diabetes Social History Household Members: Family Housing: Apartment Alcohol intake: never Patient Tobacco Use Status: Former Tobacco user Years Smoked: quit 6 years ago e-Cigarette/Vaping Use: Never Used Second Hand Smoke Exposure: No service: No Current occupational status: disabled Cognitive needs: No (cane) Hearing needs: No Vision needs: Yes (glasses) Questionnaire PHQ-9 Over the last 2 weeks, how often have you been bothered by any of the following problems? 1. Little interest or pleasure in doing things: not at all 2. Feeling down, depressed, or hopeless: not at all 3. Trouble falling or staying asleep, or sleeping too much: not at all 4. Feeling tired or having little energy: not at all 5. Poor appetite or overeating: not at all 6. Feeling bad about yourself - or that you are a failure or have let yourself or your family down: not at all 7. Trouble concentrating on things, such as reading the newspaper or watching television: not at all 8. Moving or speaking so slowly that other people could have noticed. Or the opposite - being so fidgety or restless that you have been moving around a lot more than usual: not at all 9. Thoughts that you would be better off or of hurting yourself in some way: not at all Total score: 0 Depression Screening Interpretation: Negative Depression Screening Done: Yes 76788 - PHQ-9 Billing: Yes Source: Developed by Drs. Fredy Mota, Ayanna Sharp, Gaston Garcia and colleagues, with an educational stephanie from [employer]. Thrive Questionnaire Date Thrive assessed: 09/11/23 I am a: Patient What is your living situation today?: I have a steady place to live Within the past 12 months, did the food you bought not last and you didn't have the money to get more?: Never true Within the past 12 months, did you worry whether your food would run out before you got money to buy more?: Never true Do you have trouble paying for medicines?: No Do you have trouble getting transportation to medical appointments?: No Do you have trouble paying your heating and electricity bill?: No Do you have trouble taking care of your child, family member or friend?: No Do you have trouble with day-to-day activities such as bathing, preparing meals, shopping, managing finances, etc.?: No Are you currently unemployed and looking for a job?: No Are you interested in more education?: No Currently or been in a relationship where the following occur: No concerns reported THRIVE Score: 0 AUDIT C Alcohol Use Questionnaire (AUDIT-C) 1. How often do you have a drink containing alcohol?: Never 3. How often do you have six or more drinks on one occasion?: Never Total Score: 0 Score Reviewed/Action Taken: Yes BALJIT-7 AMB Questionnaire BALJIT-7 Date BALJIT - 7 assessed: 09/11/23 Feeling nervous, anxious, or on edge: 0 = Not at all Not being able to stop or control worryin = Not at all Worrying too much about different things: 0 = Not at all Trouble relaxin = Not at all Being so restless that it is hard to sit still: 0 = Not at all Becoming easily annoyed or irritable: 0 = Not at all Feeling afraid as if something awful might happen: 0 = Not at all Total BALJIT-7 score (0-4 normal; 5-9 mild; 10-14 moderate; 15-21 severe): 0 Source: Developed by Drs. Fredy Mota, Ayanna Sharp, Gaston Garcia and colleagues, with an educational stephanie from [employer]. Review of Systems Const Denies chills, Reports fatigue, Denies fever(s) and Denies headache(s) ENT Denies dysphagia, Denies dizziness, Denies otalgia, Denies headache(s), Reports neck pain, Denies odynophagia and Denies sore throat Card Denies chest pain, Denies palpitations and Denies dyspnea Resp Denies cough, Denies dyspnea and Denies wheezing GI Details: reports feeling a lump on the left side of her abdomen on and off Denies abdominal pain, Denies constipation, Denies dysphagia, Denies heartburn, Denies diarrhea, Denies nausea, Denies odynophagia and Denies vomiting Denies nocturia, Denies dysuria and Denies urinary urgency Musc Reports back pain (over the lumbar spine - chronic), Reports myalgias, Reports arthralgias (involving multiple joints; increased pain over the right hip), Reports joint swelling (on and off in both hands and feet), Reports neck pain, Reports radiating pain into limb (bilaterally) and Reports tingling (over both lower extremities, on and off) Skin/Breast Denies rash Neuro Denies dizziness, Denies headache(s), Reports radicular pain (in both lower extremities) and Reports tingling (over both lower extremities, on and off) Endo Reports fatigue and Denies palpitations Aller/Immun Denies wheezing Physical exam (Primary Care) Vital Signs: Last Vital Signs Pulse 100 09/11/23 09:21 BP 122/74 09/11/23 09:21 Pulse Ox 94 09/11/23 09:21 Oxygen Delivery Method Room Air 09/11/23 09:21 BMI result Body Mass Index 35.5 Tobacco/Smoking Status: Tobacco use Status Tobacco use date assessed 09/11/23 09/11/23 09:27 Patient Tobacco Use Status Former Tobacco user 09/11/23 09:27 e-Cigarette/Vaping Use Never Used 09/11/23 09:27 PHQ-9: PHQ-9 Score PHQ-9: Total score 0 09/11/23 09:36 Depression Screening Interpretation: Negative Thrive Assessment: Date of Thrive Assessment Date Thrive assessed 09/11/23 09/11/23 09:27 Currently or been in a relationship where the following occur: No concerns reported Const General: no acute distress and alert HENMT Ears: TM's normal bilaterally and EAC's normal Throat: Yes posterior oropharynx normal and Yes tonsils normal (no TP congestion noted) Neck Neck: Yes no lymphadenopathy and Yes supple Thyroid: Thyroid normal Resp Auscultation: clear to auscultation bilaterally, no rales and no wheezes Cardio Rate: regular rate Rhythm: regular rhythm Heart sounds: no murmurs GI Palpation (GI): Soft to palpation, nontender, no guarding and no masses Auscultation: normal bowel sounds General: Yes no CVA tenderness Back/Spine/Pelvis Back: no CVA tenderness Cervical Spine: Cervical spine tenderness Thoracic/Lumbar Spine: paraspinal muscle tenderness on the left in the lower thoracic and in the upper thoracic and lumbar spinal tenderness Skin Rashes: no rashes Extrem General: No clubbing, No cyanosis and Yes edema ((+) edema of both hands and feet) Right upper extremity: Extremity exam: right hand Details: tenderness Left upper extremity: hand Details: tenderness Office Meds cyanocobalamin (vitamin B-12) 1,000 mcg/mL injection solution Performing Provider: Michael Vogel MD [facility] Administered by: Laura Mcqueen RN on 09/11/23 09:40 Dose Route Admin Location Dispensed Lot Number Expiration Date NDC Electrical Assistant 1,000 mcg IM 1 mL [id number] 07/25/24 72699-446-23 [employer] Results Reviewed Results Reviewed: Laboratory Tests 08/16/23 08/16/23 10:05 10:08 WBC 15.2 H Hgb 13.1 D Hct 39.6 Plt Count 321 ESR 23 H Sodium 147 H Potassium 3.7 Creatinine 0.73 Estimated GFR > 60 Fasting Glucose 100 H Hemoglobin A1c % 6.9 H Calcium 9.4 AST 10 ALT 9 Vitamin B12 461 25-OH Vitamin D Total 25.4 L TSH 1.22 Ur Specific [place] 1.020 Urine Protein Trace Urine Glucose (UA) Negative Urine Blood Negative Urine Nitrite Negative Ur Leukocyte Esterase Trace H Microalb/Creat Ratio 7.3 Assessment and Plan Assessment & Plan (1) Diabetes mellitus: Code(s): E11.9 - Type 2 diabetes mellitus without complications Qualifiers: Diabetes mellitus complication detail: with unspecified neuropathy Diabetes mellitus complication status: with neurologic complications Diabetes mellitus senior living insulin use: without laborer marine terminal use Diabetes mellitus type: type 2 Qualified Code(s): E11.40 - Type 2 diabetes mellitus with diabetic neuropathy, unspecified Plan: Her HgbA1c was at 6.9% on her labs done a few weeks ago (was at 6.4% a few months ago) - goal is < 7.0% Reinforced diabetic diet Continue Metformin 1000 mg BID (2) Mixed hyperlipidemia: Code(s): E78.2 - Mixed hyperlipidemia Plan: Results of her labs done a few weeks ago reviewed and discussed with patient - these were non-fasting labs and did not include her fasting lipids Her cholesterol levels were reasonable when last checked in January 2023 - TC 191, TG 169, HDL 44 and LDL 114 Reinforced low cholesterol diet Continue Rosuvastatin 20 mg QD and Ezetimibe 10 mg QD Will recheck her labs and fasting lipids in 4 months for follow up (3) Hypertension, essential, benign: Code(s): I10 - Essential (primary) hypertension Plan: Reinforced low sodium diet - goal is systolic BP of at least 120 to 130 mm or less Continue HCTZ 25 mg QD and Lisinopril 20 mg QD (4) Asthma: Code(s): J45.909 - Unspecified asthma, uncomplicated Qualifiers: Asthma complication type: uncomplicated Asthma persistence: intermittent Asthma severity: mild Qualified Code(s): J45.20 - Mild intermittent asthma, uncomplicated Plan: Stable/controlled - states that she uses her Albuterol HFA inhaler only as needed (5) Iron deficiency anemia, unspecified: Code(s): D50.9 - Iron deficiency anemia, unspecified Qualifiers: Iron deficiency anemia type: inadequate dietary iron intake Qualified Code(s): D50.8 - Other iron deficiency anemias Plan: Continue IV iron Tx as needed Follow up with hematology (Dr. Anthony) as scheduled She has been referred to GI for screening colonoscopy (recalls having one done at [facility] a few years ago but have been unable to locate any record of this in [employer] or [employer] - now states that her procedure was aborted at the time as she started bleeding during the procedure) She was seen last year for precolonoscopy but anesthesia recommended cardiac clearance first She has since been cleared but has not yet been scheduled and this has yet to be done - will now refer her to GI for colonoscopy (6) Neuropathy: Comment: Repeat NCV and EMG done in November 2017 revealed findings consistent with neuropathy Code(s): G62.9 - Polyneuropathy, unspecified Plan: Continue Pregabalin 150 mg TID States that she had EMG and NCV done sometime in the past year or so - will try to obtain a copy of this report from neurology for review and documentation Follow up with neurology as scheduled (7) Cervical spondylosis with radiculopathy: Code(s): M47.22 - Other spondylosis with radiculopathy, cervical region Plan: Continue Oxycodone 30 mg Q 12 hours PRN, Cyclobenzaprine 5 mg TID PRN and Lidocaine 5% ointment topically TID PRN MRI of the cervical spine previously requested for was denied by insurance (8) Rheumatoid arthritis: Comment: Is on Prednisone 5 mg-20 mg daily, Methotrexate tablets 2.5 mg 6 tablets once a day on Sundays. Rinvoq ER 15 mg qd has been discontinued. Code(s): M06.9 - Rheumatoid arthritis, unspecified Qualifiers: Rheumatoid arthritis location: unspecified site Rheumatoid factor presence: with rheumatoid factor Qualified Code(s): M05.9 - Rheumatoid arthritis with rheumatoid factor, unspecified Plan: Continue Prednisone 2.5 mg QD and Methotrexate injection (Rasuvo) 20 mg once a week; she was previously on Rinvoq ER 15 mg QD but this was discontinued due to side effects (diarrhea) Patient so far has failed multiple treatments for RA already - was unable to tolerate Rinvoq (diarrhea) and had poor or no clinical response to Xeljanz, Olumiant, Cimzia and Rituximab; she has also failed anti-TNF therapies, as well as Actemra, Orencia and multiple other DMARDs including Azathioprine Follow up with rheumatology (Dr. Kennedy) as scheduled (9) Non-traumatic compression fracture of eleventh thoracic vertebra: Code(s): M48.54XA - Collapsed vertebra, not elsewhere classified, thoracic region, initial encounter for fracture Qualifiers: Encounter type: sequela Qualified Code(s): M48.54XS - Collapsed vertebra, not elsewhere classified, thoracic region, sequela of fracture Plan: This was seen on repeat lumbar spine x-rays done in late 2022 (is a new finding) - is most likely at least a partial source of her recent recurrent left mid to lower back pain and discomfort Suspect that this may have resulted from her last ESWL a few months ago She reportedly had BMD done at Dr. Kennedy's office on 05/20/2021 and her left femur T-score at the time was at -1.8 Repeat spine x-rays done last year showed some progression of her degenerative changes from previous Continue Oxycodone 30 mg BID PRN and Pregabalin 150 mg TID Follow up with [facility] as scheduled for continuing pain management (10) Vitamin B12 deficiency: Code(s): E53.8 - Deficiency of other specified B group vitamins Plan: Continue oral Vitamin B12 1000 mcg QD and B12 injection monthly - B12 injection given today (11) Vitamin D deficiency: Code(s): E55.9 - Vitamin D deficiency, unspecified Plan: Continue OTC Vitamin D supplements as well as her weekly 56741 units of Vitamin D2 (12) GERD (gastroesophageal reflux disease): Comment: continue ppi- avoid culprits EGD- Code(s): K21.9 - Gastro-esophageal reflux disease without esophagitis Qualifiers: Esophagitis presence: without esophagitis Qualified Code(s): K21.9 - Gastro-esophageal reflux disease without esophagitis Plan: Dietary restrictions reinforced Continue Omeprazole 20 mg QD PRN (13) Venous insufficiency of both lower extremities: Code(s): I87.2 - Venous insufficiency (chronic) (peripheral) Plan: Follow up with vascular surgery (Dr. Yu Dietrich) as scheduled She has been advised to continue with conservative treatments for now due to her multiple comorbidities (14) Ureterolithiasis: Comment: S/P left ESWL a few months ago (had a 5 mm renal calculi), with resolution of symptoms Code(s): N20.1 - Calculus of ureter Plan: S/P repeat ESWL last year but states that she is still experiencing recurrent pain and discomfort, and more recently, pain over her left lower throacic and lumbar area Follow up with urology as scheduled (15) Insomnia: Code(s): G47.00 - Insomnia, unspecified Qualifiers: Insomnia type: primary Qualified Code(s): F51.01 - Primary insomnia Plan: Sleep hygiene reinforced Continue Zolpidem 10 mg Q HS PRN (16) Anxiety: Code(s): F41.9 - Anxiety disorder, unspecified Plan: States that her anxiety has been controlled lately - used to take Fluoxetine but she has not been on this in a while now (17) Obesity (BMI 30-39.9): Code(s): E66.9 - Obesity, unspecified Plan: Reinforced diet; exercise and weight loss are unrealistic at present due to her increasing low back pain and lumbar radicular pain and other multiple comorbidities Plan Follow up in 4 months Orders: Orders AMB Vitamin B12 Injection Patient Supplied Today E53.8 - Deficiency of other specified B group vitamins Complete Blood Count Auto Diff 4 Months D64.9 - Anemia, unspecified, M05.9 - Rheumatoid arthritis with rheumatoid factor, unspecified Lipid Panel 4 Months E78.00 - Pure hypercholesterolemia, unspecified, M05.9 - Rheumatoid arthritis with rheumatoid factor, unspecified UA CC w/rflx Micro + Cult 4 Months M05.9 - Rheumatoid arthritis with rheumatoid factor, unspecified, R30.0 - Dysuria Vitamin D 25-OH Total 4 Months E55.9 - Vitamin D deficiency, unspecified, M05.9 - Rheumatoid arthritis with rheumatoid factor, unspecified C Reactive Protein 4 Months M05.9 - Rheumatoid arthritis with rheumatoid factor, unspecified Comprehensive [place]. Panel Fast 4 Months E78.00 - Pure hypercholesterolemia, unspecified, M05.9 - Rheumatoid arthritis with rheumatoid factor, unspecified Microalbumin, Random (w Creat) 4 Months E11.9 - Type 2 diabetes mellitus without complications, M05.9 - Rheumatoid arthritis with rheumatoid factor, unspecified Hemoglobin A1c 4 Months E11.9 - Type 2 diabetes mellitus without complications, M05.9 - Rheumatoid arthritis with rheumatoid factor, unspecified TSH reflex Free T4 4 Months E78.00 - Pure hypercholesterolemia, unspecified, M05.9 - Rheumatoid arthritis with rheumatoid factor, unspecified Vitamin B12 and Folate 4 Months E53.8 - Deficiency of other specified B group vitamins, M05.9 - Rheumatoid arthritis with rheumatoid factor, unspecified Erythrocyte Sedimentation Rate 4 Months M05.9 - Rheumatoid arthritis with rheumatoid factor, unspecified, M79.7 - Fibromyalgia Referrals Gastroenterology Referral Z12.11 - Encounter for screening for malignant neoplasm of colon Coding Level of Care Code Est Pt Level 4 (77728) Complex EM visit Add On G2211 Diagnoses Type 2 diabetes mellitus with diabetic neuropathy, without long-term current use of insulin E11.40 Diabetes mellitus complication detail: with unspecified neuropathy Diabetes mellitus complication status: with neurologic complications Diabetes mellitus laborer marine terminal insulin use: without laborer marine terminal use Diabetes mellitus type: type 2 Mixed hyperlipidemia E78.2 Hypertension, essential, benign I10 Mild intermittent asthma without complication J45.20 Asthma complication type: uncomplicated Asthma persistence: intermittent Asthma severity: mild Iron deficiency anemia secondary to inadequate dietary iron intake D50.8 Iron deficiency anemia type: inadequate dietary iron intake Neuropathy G62.9 Cervical spondylosis with radiculopathy M47.22 Rheumatoid arthritis with positive rheumatoid factor, involving unspecified site M05.9 Rheumatoid arthritis location: unspecified site Rheumatoid factor presence: with rheumatoid factor Nontraumatic compression fracture of T11 vertebra, sequela M48.54XS Encounter type: sequela Vitamin B12 deficiency E53.8 Vitamin D deficiency E55.9 Gastroesophageal reflux disease without esophagitis K21.9 Esophagitis presence: without esophagitis Venous insufficiency of both lower extremities I87.2 Ureterolithiasis N20.1 Primary insomnia F51.01 Insomnia type: primary Anxiety F41.9 Obesity (BMI 30-39.9) E66.9
[2023-09-11 09:21] VITALS: BP 122/74; PULSE 100; O2SAT 94; BMI 35.5
== END 2023-09-11 10:02 | disposition home or self-care (01) ==
PROVIDERS: PCP Internal Medicine; Visit Provider Internal Medicine
DX: E11.40 Type 2 diabetes mellitus with diabetic neuropathy, unspecified (principal); M05.9 Rheumatoid arthritis with rheumatoid factor, unspecified; E78.2 Mixed hyperlipidemia; E53.8 Deficiency of other specified B group vitamins; I10 Essential (primary) hypertension; J45.20 Mild intermittent asthma, uncomplicated; D50.8 Other iron deficiency anemias; G62.9 Polyneuropathy, unspecified; M47.22 Other spondylosis with radiculopathy, cervical region; M48.54XS Collapsed vertebra, not elsewhere classified, thoracic region, sequela of fracture; E55.9 Vitamin D deficiency, unspecified; K21.9 Gastro-esophageal reflux disease without esophagitis
CPT/HCPCS: 96372; 99214; J3420

== ENCOUNTER 2023-09-19 09:55 | Emergency (ER) | payer OTHER, SELFPAY ==
--- NOTE | 2023-09-19 | ECG_ITS ---
Test Reason : epigastric pain Blood Pressure : / mmHG Vent. Rate : 075 BPM Atrial Rate : 075 BPM P-R Int : 134 ms QRS Dur : 076 ms QT Int : 390 ms P-R-T Axes : 032 022 025 degrees QTc Int : 435 ms Normal sinus rhythm Normal ECG When compared with ECG of 09-DEC-2021 11:47, No significant change was found Referred By: Generic ED Physician Electronically Signed By:HANS TOM
--- NOTE | ~2023-09-19 | CT_ITS ---
EXAMINATION: CT ABDOMEN AND PELVIS WITH CONTRAST CLINICAL INFORMATION: Diarrhea and periumbilical pain. COMPARISON: Prior CT imaging exams from 08/22/2019 and 03/26/2023. TECHNIQUE: Multidetector volumetric images were obtained from the superior aspect of the liver through the pubic symphysis following administration 85 mL of Omnipaque 350 intravenous contrast. Sagittal and coronal reformatted images were obtained on the technologist's workstation. Oral contrast: No This CT examination was performed using dose optimization techniques as appropriate, variously including the following: *Automated exposure control *Adjustment of mA and/or kV according to patient size (this includes techniques or standardized protocols for targeted exams where dose is matched to indication/reason for exam; i.e. extremities or head) *Use of iterative reconstruction technique DLP: 676 mGy-cm FINDINGS: LUNG BASES: No pulmonary consolidation or pleural effusion. HEPATOBILIARY: Mild hepatomegaly and diffuse hepatic steatosis. Gallbladder has a normal appearance. No dilated bile ducts. PANCREAS: No edema, pancreatic ductal dilatation or mass. SPLEEN: Normal. ADRENAL GLANDS: Normal. KIDNEYS AND URETERS: Kidneys are normal in size. Small bilateral renal vascular calcifications are noted. No overt nephrolithiasis. No hydronephrosis or perinephric edema. The ureters are unremarkable. 0.8 cm simple cyst of the mid right kidney. No renal imaging follow-up is recommended for a simple cyst. BLADDER: Normal. BOWEL AND PERITONEUM: Stomach and small bowel are unremarkable. No dilated loops. The appendix is normal. No overt colonic wall thickening or mesenteric fat stranding. No free fluid or pneumoperitoneum. ABDOMINAL WALL: Unremarkable. VASCULATURE: Atherosclerotic calcification of the abdominal aorta and iliac arteries without aneurysm or dissection. The celiac trunk and its branches are widely patent. Calcified atherosclerotic plaque appears to cause mild stenosis at origins of superior and inferior mesenteric arteries. LYMPH NODES: No pathologic sized lymph nodes in the abdomen or pelvis. No inguinal lymphadenopathy. PELVIC VISCERA: Status post hysterectomy. No adnexal mass or pelvic free fluid. MUSCULOSKELETAL: Bones are diffusely osteopenic. Old mild compression fracture with subjacent sclerosis affecting the superior endplate of the T11 vertebral body. Chronic multilevel degenerative arthropathy of the spine. Degenerative disc disease is severe at T12-L1 and there is chronic mild degenerative retrolisthesis of T12 on L1. Within the lumbar spine, findings include severe facet arthropathy and grade [address]hesis at L4-L5. CT/CT abdomen pelvis w IV con IMPRESSION: * No acute imaging abnormalities along the gastrointestinal tract. No evidence of appendicitis, enteritis or colitis. * Mild hepatomegaly and diffuse hepatic steatosis.
[2023-09-19 10:07] VITALS: BP 155/89; PULSE 104; RESP 19; TEMP 36.6; O2SAT 99; BMI 34.2
[2023-09-19 11:29] LABS: MANUAL DIFF FLAG NO
[2023-09-19 11:30] LABS: Basophils Absolute Auto 0.1 X10*3/uL (0.0-0.2); Basophils Percent Auto 0.5 % (0-2); Eosinophils Absolute Auto 0.2 X10*3/uL (0.0-0.4); Eosinophils Percent Auto 1.9 % (0-4); Hematocrit 38.8 % (37.0-47.0); Hemoglobin 12.8 g/dl (12.0-16.0); Imm Gran Abs Auto 0.13 X10*3/uL (0.00-0.03); Imm Gran Pct Auto 1.2 % (0.0-0.4); Lymphocytes Percent Auto 8.9 % (20-40); Mean Corpuscular Hemoglobin 29.6 pg (27.0-33.0); Mean Corpuscular Volume 89.6 fL (80.0-98.0); Mean Platelet Volume 10.4 fL (9.4-12.3); Monocytes Absolute Auto 0.7 X10*3/uL (0.1-1.2); Monocytes Percent Auto 6.2 % (2-11); Neutrophils Absolute Auto 8.9 x10*3/uL (2.0-8.3); Neutrophils Percent Auto 81.3 % (45-73); Platelet Count 195 X10*3/uL (160-400); Red Blood Count 4.33 X10*6/uL (4.20-5.50); Red Cell Distribution Width 16.7 % (11.0-16.0)
[2023-09-19 11:44] LABS: Alanine Aminotransferase 10 U/L (0-31); Albumin Level 3.7 g/dL (3.5-5.0); Alkaline Phosphatase 86 U/L (39-117); Anion Gap 15 (12-20); Aspartate Amino Transferase 11 U/L (5-31); Bilirubin Direct 0.3 mg/dL (0.0-0.5); Bilirubin Total 1.2 mg/dL (0.0-1.0); Blood Urea Nitrogen 12 mg/dL (9-16); Calcium 9.5 mg/dL (8.4-10.2); Carbon Dioxide 26 mmol/L (22-29); Chloride 108 mmol/L (96-108); Creatinine Clr Calc Pharmacy 64.6; Estimated Glomerular Filt Rate > 60; Glucose Random 132 mg/dL (60-115); Lipase 23 U/L (8-78); Magnesium 1.6 mg/dL (1.6-2.6); Potassium 4.1 mmol/L (3.3-5.1); Sodium 145 mmol/L (135-145); Total Protein 6.8 g/dL (6.5-8.0)
[2023-09-19 12:00] VITALS: BP 156/72; PULSE 92; RESP 15; TEMP 36.9; O2SAT 100
--- NOTE | 2023-09-19 12:00 | PC.NURSE ---
Presents to ED via home, reports he is prediabetic and takes metformin. Reports symptoms of increased urination, increased thirst and general malaise for last few weeks worsening. Denies pain, CP, SOB, fevers, recent illnesses. Alert and oriented, breathing even and unlabored, skin warm and dry. NSR on bedside rn cardiac cath, [facility].
[2023-09-19] MEDS: iohexoL 350 MG/ML 100 ML INFUS..BTL IV (12:49)
--- NOTE | 2023-09-19 13:46 | ED_ITS ---
HPI - Abdominal Pain General Chief Complaint: Abdominal Pain Stated Complaint: Cant hold bowel movements Time Seen by Provider: 09/19/23 11:52 Source: patient and old records reviewed Mode of arrival: ambulatory Limitations: no limitations History of Present Illness ED Provider: JOSE EDUARDO RTUHERFORD narrative: 63 yo female with PMH of DM, anxiety, anemia, HTN, prior pyelonephritis here with c/o 3 days of periumbilical pain and pasty stools. Has had blood on toilet paper only after wiping has hx of hemorrhoids. Colonoscopy 10+ years ago. She denies n/v or fevers. No recent antibiotic use. MD elicited complaint: abdominal pain Pertinent past history: none Onset (ago): day(s) (3) Pain Consistency: intermittent Location: periumbilical Severity: moderate Quality: aching Radiation: none Migration to: no migration Exacerbating factors: nothing Relieving factors: nothing Associated symptoms: other (pasty stools) Related Data Home Medications ?Medication ?Instructions ?Recorded ?Confirmed alendronate 70 mg tablet 70 mg PO QWEEK 11/17/20 09/11/23 Previous Rx's ?Medication ?Instructions ?Recorded ergocalciferol (vitamin D2) 1,250 1,250 mcg PO QWEEK #12 caps 03/24/22 mcg (50,000 unit) capsule albuterol sulfate 2.5 mg/3 mL 2.5 mg (3 mL) inhalation Q4-6H PRN 11/23/22 (0.083 %) solution for nebulization Wheezing #75 mL rosuvastatin 40 mg tablet (Crestor) 40 mg PO DAILY 90 days #90 tabs 04/12/23 Nystop 100,000 unit/gram topical 1 appl topical TID #60 grams 04/15/23 powder (nystatin) Ventolin HFA 90 mcg/actuation 2 puff inhalation Q6H PRN 05/09/23 aerosol inhaler (albuterol sulfate) bronchospasm #18 grams omeprazole 20 mg capsule,delayed 20 mg PO DAILY 90 days #90 caps 05/21/23 release nystatin 100,000 unit/mL oral 10 ml buccal TID 10 days #300 mL 05/28/23 suspension lancets 28 gauge (FreeStyle #100 ea 06/08/23 Lancets) blood sugar diagnostic (FreeStyle 1 strip miscellaneous TID #100 06/09/23 Test strips) strips pregabalin 150 mg capsule 150 mg PO TID 30 days #90 caps 06/14/23 cyanocobalamin (vitamin B-12) 1,000 mcg IM Q4W #3 mL 07/25/23 1,000 mcg/mL injection solution lisinopril 20 mg tablet 20 mg PO DAILY #90 tabs 07/25/23 zolpidem 10 mg tablet 10 mg PO BEDTIME PRN insomnia 30 08/31/23 days #30 tabs oxycodone 30 mg tablet 30 mg PO Q12H pain 28 days #56 tabs 09/10/23 metformin 1,000 mg tablet 1,000 mg PO BID #180 tabs 09/11/23 ondansetron 4 mg disintegrating 4 mg PO Q8H PRN nausea and 09/19/23 tablet vomiting #20 tabs sucralfate 100 mg/mL oral 10 ml PO BID 7 days #140 mL 09/19/23 suspension (Carafate) Allergies Allergy/AdvReac Type Severity Reaction Status Date / Time No Known Allergies Allergy Verified 09/19/23 10:09 Review of Systems Review of Systems Constitutional : No Weight loss, No Fever, No Chills ENT/Mouth : No sore throat, No Rhinorrhea Eyes: No Swelling, No Redness Cardiovascular : No Chest Pain, No SOB, NoEdema Respiratory : No Cough, No Sputum, No Wheezing Gastrointestinal : no Nausea, no Vomiting, positive Diarrhea, positive abdominal Pain, No Hematochezia, No Melena Genitourinary : No Dysuria, No Urinary Frequency, No Hematuria, No Urgency Musculoskeletal : No joint pain, No Myalgias, No Joint Swelling Skin : No Skin Lesions, No rash Neuro : No Weakness, No Numbness, No Dizziness, No Headache Psych : No Anxiety/Panic, No Depression All other systems reviewed and are negative. [facility] Past Medical History Attestation statement: The following information was validated with the patient. Source: old records reviewed Medical History Mixed hyperlipidemia Venous insufficiency of both lower extremities Abnormal bruising Obesity (BMI 30-39.9) Anxiety Insomnia GERD (gastroesophageal reflux disease) Vitamin D deficiency Ureterolithiasis Neuropathy Varicose veins of bilateral lower extremities with pain Rheumatoid arthritis Cervical spondylosis with radiculopathy Asthma Iron deficiency anemia, unspecified Vitamin B12 deficiency Hyperlipidemia Hypertension, essential, benign Diabetes mellitus Surgical History Hx of lithotripsy History of surgery on left wrist History of surgery on right wrist History of arthroplasty of left ankle History of arthroplasty of right ankle S/P VANESSA-BSO (total abdominal hysterectomy and bilateral salpingo-oophorectomy) History of arthroplasty of right knee (~2008) Family History Family History Father Chronic mental illness Mother Diabetes Hypertension Stroke Sister Heart disease Diabetes Social History Social History Household Members: Family Housing: Apartment Alcohol intake: never Patient Tobacco Use Status: Former Tobacco user Years Smoked: quit 6 years ago Smoked in Last 30 Days: No e-Cigarette/Vaping Use: Never Used Second Hand Smoke Exposure: No Use of substances other than those prescribed or required for medical reasons: No Advance Directives: No Advance Directives Information Provided: No service: No Current occupational status: disabled Cognitive needs: No (cane) Hearing needs: No Vision needs: Yes (glasses) Physical Exam ED Vital Signs: Vital Signs - 24 hr 09/19/23 10:07 09/19/23 12:00 09/19/23 14:00 Temperature 98 F 98.4 F 98.5 F Pulse Rate 104 H 92 89 Respiratory Rate 19 15 17 Blood Pressure 155/89 H 156/72 H 147/77 H Pulse Oximetry 99 100 98 Oxygen Delivery Method Room Air Room Air Room Air BMI result Body Mass Index 34.2 Appearance: Alert. Oriented X3. No acute distress. Eyes: Pupils equal, round and reactive to light. ENT: Pharynx normal. Neck: Normal inspection. Neck supple. CVS: Normal heart rate and rhythm. Pulses normal. Respiratory: No respiratory distress. Breath sounds normal. Abdomen: Soft and mild epigastric ttp no reobund or guarding Skin: Skin warm and dry. Normal skin color. Normal skin turgor. Extremities: No lower extremity edema. No calf ttp Neuro: Oriented X 3. No motor deficit. No sensory deficit. Medical Decision Making Medical Decision Making MDM Narrative: 63 yo female with PMH of DM, anxiety, anemia, HTN, prior pyelonephritis here with c/o periumbilical abdominal pain and pasty stools not chapis water which is unusual for c diff at this time will need basic labs, CT scan for colitis she does not have acute abdominal signs at this time. Differential Diagnosis Differential Diagnoses: The differential diagnosis associated with the presentation includes gastritis, colitis, diarrhea, viral syndrome Admission/Observation Consideration of admission/observation: Escalation of care including admission/observation considered CT scan and labs reassuring formed stool here was sent off for GI panel burning pain with eating at this time will start on carafate and zofran return precautions Lab Data MDM Lab Attestation statement: I reviewed the patient's lab results. 09/19/23 11:24 09/19/23 11:24 Labs: Lab Results 09/19/23 Range/Units 11:24 WBC 11.0 H (4.8-10.8) X10*3/uL RBC 4.33 (4.20-5.50) X10*6/uL Hgb 12.8 (12.0-16.0) g/dl Hct 38.8 (37.0-47.0) % MCV 89.6 (80.0-98.0) fL MCH 29.6 (27.0-33.0) pg MCHC 33.0 (31.0-35.0) g/dl RDW 16.7 H (11.0-16.0) % Plt Count 195 D (160-400) X10*3/uL MPV 10.4 (9.4-12.3) fL Immature Gran % (Auto) 1.2 H (0.0-0.4) % Neut % (Auto) 81.3 H (45-73) % Lymph % (Auto) 8.9 L (20-40) % [place] % (Auto) 6.2 (2-11) % Eos % (Auto) 1.9 (0-4) % Baso % (Auto) 0.5 (0-2) % Lymph # (Auto) 1.0 L (1.2-4.9) X10*3/uL [place] # (Auto) 0.7 (0.1-1.2) X10*3/uL Eos # (Auto) 0.2 (0.0-0.4) X10*3/uL Baso # (Auto) 0.1 (0.0-0.2) X10*3/uL Abs Immat Gran (auto) 0.13 H (0.00-0.03) X10*3/uL Absolute Neuts (auto) 8.9 H (2.0-8.3) x10*3/uL Absolute Nucleated RBC 0.000 (0.0-0.012) X10*3/uL Nucleated RBC % (auto) 0.0 (0.0-0.2) /100WBC Sodium 145 (135-145) mmol/L Potassium 4.1 (3.3-5.1) mmol/L Chloride 108 (96-108) mmol/L Carbon Dioxide 26 (22-29) mmol/L Anion Gap 15 (12-20) BUN 12 (9-16) mg/dL Creatinine 0.90 (0.5-1.4) mg/dL Estim Creat Clear Calc 64.6 Estimated GFR > 60 Random Glucose 132 H (60-115) mg/dL Calcium 9.5 (8.4-10.2) mg/dL Magnesium 1.6 (1.6-2.6) mg/dL Total Bilirubin 1.2 H (0.0-1.0) mg/dL Direct Bilirubin 0.3 (0.0-0.5) mg/dL AST 11 (5-31) U/L ALT 10 (0-31) U/L Alkaline Phosphatase 86 (39-117) U/L Total Protein 6.8 (6.5-8.0) g/dL Albumin 3.7 (3.5-5.0) g/dL Lipase 23 (8-78) U/L Independent Interpretation I performed an independent interpretation of an: CT Scan (no acute findings) Radiology Impression Discussion of test interpretation with radiology: I have reviewed the radiologist's reading. External Record Review External record reviewed: Inpatient record Prescription Management I considered prescription management with: Other Medications Administered Discontinued Medications Generic Name Dose Route Start Last Admin Trade Name Freq PRN Reason Stop Dose Admin Iohexol 100 ml 09/19/23 12:49 09/19/23 12:49 Iohexol 350 Mg/Ml 100 Ml Infus..Btl IV 09/19/23 12:50 85 ml ONCE ONE Administration Discharge Plan Discharge Clinical Impression: Nausea, Change in stool Abdominal pain Qualifiers: Abdominal location: epigastric Qualified Code(s): R10.13 - Epigastric pain Patient Disposition: Home, Self-Care Instructions: Acute Nausea and Vomiting (ED), Abdominal Pain (ED) Additional Instructions: we will call you with stool study results if positive in 24 hours you need a repeat colonoscopy if you have a change in stools please call your doctor to refer you return for worsening pain, fevers, bleeding, unable to tolerate anything by mouth or any other concerns labs reassuring and CT scan shows fatty liver (chronic) CT/CT abdomen pelvis w IV con IMPRESSION: * No acute imaging abnormalities along the gastrointestinal tract. No evidence of appendicitis, enteritis or colitis. * Mild hepatomegaly and diffuse hepatic steatosis. Prescriptions: New ondansetron 4 mg tablet,disintegrating 4 mg PO Q8H PRN (Reason: nausea and vomiting) Qty: 20 0RF sucralfate [Carafate] 100 mg/mL suspension 10 ml PO BID 7 Days Qty: 140 0RF No Action ergocalciferol (vitamin D2) 1,250 mcg (50,000 unit) capsule 1,250 mcg PO QWEEK Qty: 12 5RF albuterol sulfate 2.5 mg /3 mL (0.083 %) solution for nebulization 2.5 mg inhalation Q4-6H PRN (Reason: Wheezing) Qty: 75 3RF rosuvastatin [Crestor] 40 mg tablet 40 mg PO DAILY 90 Days Qty: 90 3RF nystatin [Nystop] 100,000 unit/gram powder 1 appl topical TID Qty: 60 1RF albuterol sulfate [Ventolin HFA] 90 mcg/actuation HFA aerosol inhaler 2 puff inhalation Q6H PRN (Reason: bronchospasm) Qty: 18 5RF omeprazole 20 mg capsule,delayed release(DR/EC) 20 mg PO DAILY 90 Days Qty: 90 1RF nystatin 100,000 unit/mL suspension 10 ml buccal TID 10 Days Qty: 300 0RF Rx Instructions: swish 1/2 of dose in each side of the mouth for up to 5 minutes, then spit out the medicine (DME) lancets [FreeStyle Lancets] 28 gauge misc See Rx Instructions .Route Qty: 100 0RF Rx Instructions: As directed three times per day FreeStyle Test Strip 1 strip miscellaneous TID Qty: 100 3RF pregabalin 150 mg capsule 150 mg PO TID 30 Days Qty: 90 0RF lisinopril 20 mg tablet 20 mg PO DAILY Qty: 90 3RF cyanocobalamin (vitamin B-12) 1,000 mcg/mL solution 1,000 mcg IM Q4W Qty: 3 2RF zolpidem 10 mg tablet 10 mg PO BEDTIME PRN (Reason: insomnia) 30 Days Qty: 30 1RF oxycodone 30 mg tablet 30 mg PO Q12H 28 Days Qty: 56 0RF metformin 1,000 mg tablet 1,000 mg PO BID Qty: 180 0RF alendronate 70 mg tablet 70 mg PO QWEEK Print Language: [place]
[2023-09-19 14:00] VITALS: BP 147/77; PULSE 89; RESP 17; TEMP 36.9; O2SAT 98
[2023-09-19 15:11] VITALS: BP 147/77; PULSE 89; RESP 17; TEMP 36.9; O2SAT 98
[2023-09-19 15:23] LABS: Adenovirus F 40/41 Not Detected (Not Detect.); Astrovirus Not Detected (Not Detect.); Campylobacter Not Detected (Not Detect.); Cryptosporidium Not Detected (Not Detect.); Cyclospora cayetanensis Not Detected (Not Detect.); E. coli EAEC Not Detected (Not Detect.); E. coli EPEC Not Detected (Not Detect.); E. coli ETEC Not Detected (Not Detect.); E. coli STEC Not Detected (Not Detect.); Entamoeba histolytica Not Detected (Not Detect.); Giardia lamblia Not Detected (Not Detect.); Norovirus GI/GII Not Detected (Not Detect.); Plesiomonas shigelloides Not Detected (Not Detect.); Rotavirus A Not Detected (Not Detect.); Salmonella Not Detected (Not Detect.); Sapovirus Not Detected (Not Detect.); Shigella sp./EIEC Not Detected (Not Detect.); Vibrio Not Detected (Not Detect.); Vibrio Cholerae Not Detected (Not Detect.); Yersinia enterocolitica Not Detected (Not Detect.)
== END 2023-09-19 15:12 | disposition home or self-care (01) ==
PROVIDERS: Emergency Provider Emergency Medicine; PCP Internal Medicine
DX: R10.13 Epigastric pain (principal); R11.0 Nausea; R19.4 Change in bowel habit; E11.9 Type 2 diabetes mellitus without complications; I10 Essential (primary) hypertension; E78.2 Mixed hyperlipidemia; D64.9 Anemia, unspecified; Z79.02 Long term (current) use of antithrombotics/antiplatelets; Z79.899 Other long term (current) drug therapy; Z79.84 Long term (current) use of oral hypoglycemic drugs
CPT/HCPCS: 36415; 74177; 80053; 80076; 83690; 83735; 85025; 87507; 93005; 99284; 99285; Q9967

== ENCOUNTER → 2023-09-19 11:28 | Outpatient (BNV) | payer OTHER, SELFPAY | PROVIDERS: Emergency Provider Emergency Medicine; PCP Internal Medicine; Visit Provider Internal Medicine | DX: R10.13 Epigastric pain (principal) | CPT/HCPCS: 93010 ==

== ENCOUNTER 2023-11-28 15:41 | Emergency (ER) | payer OTHER, SELFPAY ==
--- NOTE | ~2023-11-28 | XR_ITS ---
EXAMINATION: XR CHEST CLINICAL INFORMATION: Chest pain. COMPARISON: CT thoracic spine from 03/26/2023. TECHNIQUE: 2 views of the chest were obtained. FINDINGS: The lungs are adequately expanded. No evidence of focal consolidation, pleural effusion, pulmonary edema, or pneumothorax. The cardiomediastinal silhouette is within normal limits. No acute osseous abnormalities. Moderate multilevel degenerative spondyloarthropathy of the thoracic spine. Chronic anterior wedge deformity of the T11 vertebral body. XR/XR chest 2V IMPRESSION: No radiographic evidence of acute pulmonary abnormalities. Electronically signed by: Sandip Gross DO 11/28/2023 06:33 PM EDT
--- NOTE | ~2023-11-28 | US_ITS ---
EXAMINATION: US TRIPLEX LOWER EXTREMITY, BILATERAL CLINICAL INFORMATION: Lower extremity swelling, calf pain and tenderness COMPARISON: None available. TECHNIQUE: Color-flow triplex imaging with spectral analysis and compression Doppler were performed on the bilateral lower extremities. FINDINGS: Respiratory variation, normal compression and augmented flow are noted throughout the bilateral lower extremities. The visualized common femoral vein, superficial femoral vein, profunda femoral vein, popliteal vein and midcalf peroneal and posterior tibial venous segments show no evidence of deep venous thrombosis bilaterally. There is no Platt's cyst. US/US venous duplex LE BI IMPRESSION: No evidence of deep venous thrombosis involving the bilateral lower extremities. Electronically signed by: Ankita Claros MD 11/28/2023 07:16 PM EDT
[2023-11-28 16:28] VITALS: BP 203/102; PULSE 97; RESP 18; TEMP 36.5; O2SAT 98; BMI 20.6
--- NOTE | 2023-11-28 16:28 | ED_ITS ---
HPI - General Adult General Chief complaint: Extremity Problem Stated complaint: bilateral pedal edema Time Seen by Provider: 11/28/23 17:18 Source: patient Mode of arrival: ambulatory Limitations: no limitations History of Present Illness HPI narrative: Patient is a 63-year-old female who presents emergency department for evaluation. She reports over the past week she has been experiencing bilateral lower extremity swelling and pain to the feet and calves. She reports that she noticed this in the afternoon 1 day and has continued on, at times appears worse. She states that she is supposed to be wearing compression stockings, she has not been wearing them for the past 3 days because the swelling had increasing it was too painful to put them on. She does admit that typically in a given week she wears the compression stockings about 3 days weekly, usually when she is home, states she never worrisome while she is out of the house. She states that for the past 3 days she has been getting brief episodic sharp shooting pain to her left anterior chest, she points to the area with 3 fingers, denies it to be notably worse with exertion or deep inspiration. She admits to having some shortness of breath which is typical for her, reports this is no worse than baseline. Related Data Home Medications ?Medication ?Instructions ?Recorded ?Confirmed alendronate 70 mg tablet 70 mg PO QWEEK 11/17/20 09/11/23 Previous Rx's ?Medication ?Instructions ?Recorded ergocalciferol (vitamin D2) 1,250 1,250 mcg PO QWEEK #12 caps 03/24/22 mcg (50,000 unit) capsule albuterol sulfate 2.5 mg/3 mL 2.5 mg (3 mL) inhalation Q4-6H PRN 11/23/22 (0.083 %) solution for nebulization Wheezing #75 mL rosuvastatin 40 mg tablet (Crestor) 40 mg PO DAILY 90 days #90 tabs 04/12/23 Nystop 100,000 unit/gram topical 1 appl topical TID #60 grams 04/15/23 powder (nystatin) Ventolin HFA 90 mcg/actuation 2 puff inhalation Q6H PRN 05/09/23 aerosol inhaler (albuterol sulfate) bronchospasm #18 grams omeprazole 20 mg capsule,delayed 20 mg PO DAILY 90 days #90 caps 05/21/23 release nystatin 100,000 unit/mL oral 10 ml buccal TID 10 days #300 mL 05/28/23 suspension lancets 28 gauge (FreeStyle #100 ea 06/08/23 Lancets) blood sugar diagnostic (FreeStyle 1 strip miscellaneous TID #100 06/09/23 Test strips) strips pregabalin 150 mg capsule 150 mg PO TID 30 days #90 caps 06/14/23 cyanocobalamin (vitamin B-12) 1,000 mcg IM Q4W #3 mL 07/25/23 1,000 mcg/mL injection solution lisinopril 20 mg tablet 20 mg PO DAILY #90 tabs 07/25/23 metformin 1,000 mg tablet 1,000 mg PO BID #180 tabs 09/11/23 ondansetron 4 mg disintegrating 4 mg PO Q8H PRN nausea and 09/19/23 tablet vomiting #20 tabs zolpidem 10 mg tablet 10 mg PO BEDTIME PRN insomnia 30 10/30/23 days #30 tabs sucralfate 100 mg/mL oral 10 ml PO BID 30 days #600 mL 11/04/23 suspension (Carafate) oxycodone 30 mg tablet 30 mg PO Q12H pain 28 days #56 tabs 11/13/23 Allergies Allergy/AdvReac Type Severity Reaction Status Date / Time No Known Allergies Allergy Verified 11/28/23 16:32 Review of Systems 2 Review of Systems: Yes all other systems are reviewed and are negative [facility] Past Medical History Attestation statement: The following information was validated with the patient. Source: old records reviewed Medical History Mixed hyperlipidemia Venous insufficiency of both lower extremities Abnormal bruising Obesity (BMI 30-39.9) Anxiety Insomnia GERD (gastroesophageal reflux disease) Vitamin D deficiency Ureterolithiasis Neuropathy Varicose veins of bilateral lower extremities with pain Rheumatoid arthritis Cervical spondylosis with radiculopathy Asthma Iron deficiency anemia, unspecified Vitamin B12 deficiency Hyperlipidemia Hypertension, essential, benign Diabetes mellitus Surgical History Hx of lithotripsy History of surgery on left wrist History of surgery on right wrist History of arthroplasty of left ankle History of arthroplasty of right ankle S/P VANESSA-BSO (total abdominal hysterectomy and bilateral salpingo-oophorectomy) History of arthroplasty of right knee (~2008) Family History Family History Father Chronic mental illness Mother Diabetes Hypertension Stroke Sister Heart disease Diabetes Social History Social History Household Members: Family Housing: Apartment Alcohol intake: never Patient Tobacco Use Status: Former Tobacco user Years Smoked: quit 6 years ago Smoked in Last 30 Days: No e-Cigarette/Vaping Use: Never Used Second Hand Smoke Exposure: No Use of substances other than those prescribed or required for medical reasons: No Advance Directives: No Advance Directives Information Provided: No Patient : No service: No Current occupational status: disabled Cognitive needs: No (cane) Hearing needs: No Vision needs: Yes (glasses) Physical Exam ED Vital Signs: Vital Signs - 24 hr 11/28/23 16:28 11/28/23 18:55 Temperature 97.7 F 98.8 F Pulse Rate 97 80 Respiratory Rate 18 18 Blood Pressure 203/102 H 181/91 H Pulse Oximetry 98 99 Oxygen Delivery Method Room Air Room Air BMI result Body Mass Index 20.6 Appearance: Alert.?Oriented to person, place and time. No acute distress.?Normal affect. Eyes: Pupils equal, round and reactive to light.? ENT: Pharynx normal.?? Neck: Normal inspection.? Neck supple.?? CVS: Heart sounds normal. Normal heart rate and rhythm.? Pulses normal.?? Respiratory: No respiratory distress.? Lung sounds clear to auscultation bilaterally?? Abdomen: Soft and non-tender. Normoactive bowel sounds. No pulsatile mass.?? Skin: Skin warm and dry.? Normal skin color.? Normal skin turgor.?? Extremities: 2+ bilateral pitting lower extremity edema., difficulty palpating DP/PT pulse, positive Doppler signal bilaterally.? Bilateral calf tenderness upon palpation. Lower extremities are warm to touch, not cyanotic Neuro: Moves all extremities spontaneously. Sensation intact bilaterally. CN II- XII intact. No focal neuro deficits. Ambulates with normal steady gait. Course Course Course Narrative: This is a rapid medical exam performed by Tin Whitney NP: Additional HPI, ROS, PE not included below will be deferred to primary provider. Patient is a 63-year-old female with history of T2DM, diabetic neuropathy, venous insufficiency of lower extremities, HTN, PAD, atherosclerotic cardiovascular disease, RA, HLD presenting to the ED with complaint of bilateral pedal edema since Sunday. PCP referred to ED. Denies dyspnea. Reports brief episodes of shooting pains to left breast. Plan: labs, EKG, UA Medical Decision Making Medical Decision Making MDM Narrative: Patient is a 63-year-old female with past medical history of T2DM, diabetic neuropathy, venous insufficiency of lower extremities she in the past has seen vascular Dr. Krzysztof Dietrich, HTN, PAD, ASCVD, RA, HLD, obesity, anxiety, GERD, IVDA, B12 deficiency presenting for bilateral lower extremity edema with intermittent chest pain. Clinically have lower suspicion for bilateral DVT as result of edema, however with concern for her chest pain associated with this, will obtain venous duplex ultrasound, and D-dimer, no hypoxia tachypnea or respiratory distress. Suspect most likely etiology for her edema is due to her chronic venous insufficiency, lack of compliance with conservative treatment as per HPI. Examination not consistent with acute ischemic limb/arterial occlusion Differential Diagnosis Differential Diagnoses: The differential diagnosis associated with the presentation includes (See narrative above) Admission/Observation Consideration of admission/observation: Escalation of care including admission/observation considered (See narrative above and course narrative for further detail) Lab Data MDM Lab Attestation statement: I reviewed the patient's lab results. CBC reveals a mild leukocytosis 12,100, normocytic anemia not meeting transfusion criteria, no thrombocytopenia. No significant electrolyte derangement. No GABRIELLE. LFTs within normal range. BNP normal. High sensitive troponin below detectable limits. 11/28/23 16:47 11/28/23 16:47 Labs: Lab Results 11/28/23 11/28/23 Range/Units 16:47 18:08 WBC 12.3 H (4.8-10.8) X10*3/uL RBC 4.03 L (4.20-5.50) X10*6/uL Hgb 11.9 L (12.0-16.0) g/dl Hct 36.1 L (37.0-47.0) % MCV 89.6 (80.0-98.0) fL MCH 29.5 (27.0-33.0) pg MCHC 33.0 (31.0-35.0) g/dl RDW 15.3 (11.0-16.0) % Plt Count 247 D (160-400) X10*3/uL MPV 10.8 (9.4-12.3) fL Immature Gran % (Auto) 2.0 H (0.0-0.4) % Neut % (Auto) 72.7 (45-73) % Lymph % (Auto) 13.8 L (20-40) % Elbert % (Auto) 6.0 (2-11) % Eos % (Auto) 5.0 H (0-4) % Baso % (Auto) 0.5 (0-2) % Lymph # (Auto) 1.7 (1.2-4.9) X10*3/uL Elbert # (Auto) 0.7 (0.1-1.2) X10*3/uL Eos # (Auto) 0.6 H (0.0-0.4) X10*3/uL Baso # (Auto) 0.1 (0.0-0.2) X10*3/uL Abs Immat Gran (auto) 0.24 H (0.00-0.03) X10*3/uL Absolute Neuts (auto) 8.9 H (2.0-8.3) x10*3/uL Absolute Nucleated RBC 0.000 (0.0-0.012) X10*3/uL Nucleated RBC % (auto) 0.0 (0.0-0.2) /100WBC D-Dimer High Sensitivty 333 NG/ML Sodium 145 (135-145) mmol/L Potassium 3.5 (3.3-5.1) mmol/L Chloride 111 H (96-108) mmol/L Carbon Dioxide 25 (22-29) mmol/L Anion Gap 13 (12-20) BUN 14 (9-16) mg/dL Creatinine 0.89 (0.5-1.4) mg/dL Estim Creat Clear Calc 51.2 Estimated GFR > 60 Random Glucose 197 H (60-115) mg/dL Calcium 8.6 D (8.4-10.2) mg/dL Total Bilirubin 0.5 (0.0-1.0) mg/dL AST 22 (5-31) U/L ALT 22 (0-31) U/L Alkaline Phosphatase 111 (39-117) U/L Troponin I High Sens < 2.7 (<3.5-17.0) ng/L B-Natriuretic Peptide 27 (<100) pg/mL Total Protein 6.2 L (6.5-8.0) g/dL Albumin 3.5 (3.5-5.0) g/dL Independent Interpretation I performed an independent interpretation of an: EKG and Plain X-Ray (No pleural effusions, no pulmonary vascular congestion) Interpretation: Rate: 93 Rhythm:? Normal sinus rhythm Normal P waves.? Normal FARHAT.?? Normal QRS complex.?? ST T wave :??No ST elevation, no ST depression qTC: 457 prior studies:? August of 2023 The study has been interpreted contemporaneously by me. Radiology Impression Discussion of test interpretation with radiology: I have reviewed the radiologist's reading. Radiologist Impression: XR/XR chest 2V IMPRESSION: No radiographic evidence of acute pulmonary abnormalities. US/US venous duplex LE BI IMPRESSION: No evidence of deep venous thrombosis involving the bilateral lower extremities. Discharge Plan Discharge Clinical Impression: Venous insufficiency of both lower extremities Patient Disposition: Home, Self-Care Instructions: Venous Insufficiency (DC) Additional Instructions: No evidence of blood clots. As discussed, it is important that you use the compression stockings daily, elevate your legs above the level of your chest when sleeping or relaxing to help facilitate return of flow back towards the heart. Follow-up with your primary care doctor. Prescriptions: No Action ergocalciferol (vitamin D2) 1,250 mcg (50,000 unit) capsule 1,250 mcg PO QWEEK Qty: 12 5RF albuterol sulfate 2.5 mg /3 mL (0.083 %) solution for nebulization 2.5 mg inhalation Q4-6H PRN (Reason: Wheezing) Qty: 75 3RF rosuvastatin [Crestor] 40 mg tablet 40 mg PO DAILY 90 Days Qty: 90 3RF nystatin [Nystop] 100,000 unit/gram powder 1 appl topical TID Qty: 60 1RF albuterol sulfate [Ventolin HFA] 90 mcg/actuation HFA aerosol inhaler 2 puff inhalation Q6H PRN (Reason: bronchospasm) Qty: 18 5RF omeprazole 20 mg capsule,delayed release(DR/EC) 20 mg PO DAILY 90 Days Qty: 90 1RF nystatin 100,000 unit/mL suspension 10 ml buccal TID 10 Days Qty: 300 0RF Rx Instructions: swish 1/2 of dose in each side of the mouth for up to 5 minutes, then spit out the medicine (DME) lancets [FreeStyle Lancets] 28 gauge misc See Rx Instructions .Route Qty: 100 0RF Rx Instructions: As directed three times per day FreeStyle Test Strip 1 strip miscellaneous TID Qty: 100 3RF pregabalin 150 mg capsule 150 mg PO TID 30 Days Qty: 90 0RF lisinopril 20 mg tablet 20 mg PO DAILY Qty: 90 3RF cyanocobalamin (vitamin B-12) 1,000 mcg/mL solution 1,000 mcg IM Q4W Qty: 3 2RF metformin 1,000 mg tablet 1,000 mg PO BID Qty: 180 0RF zolpidem 10 mg tablet 10 mg PO BEDTIME PRN (Reason: insomnia) 30 Days Qty: 30 1RF sucralfate [Carafate] 100 mg/mL suspension 10 ml PO BID 30 Days Qty: 600 0RF oxycodone 30 mg tablet 30 mg PO Q12H 28 Days Qty: 56 0RF ondansetron 4 mg tablet,disintegrating 4 mg PO Q8H PRN (Reason: nausea and vomiting) Qty: 20 0RF alendronate 70 mg tablet 70 mg PO QWEEK Referrals: Michael Vogel MD [Primary Care Provider] - Print Language: Dutch
--- NOTE | 2023-11-28 16:31 | ECG_ITS ---
Test Reason : CHEST PAIN Blood Pressure : / mmHG Vent. Rate : 093 BPM Atrial Rate : 093 BPM P-R Int : 126 ms QRS Dur : 076 ms QT Int : 368 ms P-R-T Axes : 040 009 025 degrees QTc Int : 457 ms Normal sinus rhythm Normal ECG When compared with ECG of 19-SEP-2023 11:28, No significant change was found Referred By: Cinthia Whitney Electronically Signed By:AMBAR MARIA
[2023-11-28 16:53] LABS: MANUAL DIFF FLAG NO
[2023-11-28 16:55] LABS: Basophils Absolute Auto 0.1 X10*3/uL (0.0-0.2); Basophils Percent Auto 0.5 % (0-2); Eosinophils Absolute Auto 0.6 X10*3/uL (0.0-0.4); Hematocrit 36.1 % (37.0-47.0); Hemoglobin 11.9 g/dl (12.0-16.0); Imm Gran Abs Auto 0.24 X10*3/uL (0.00-0.03); Lymphocytes Absolute Auto 1.7 X10*3/uL (1.2-4.9); Lymphocytes Percent Auto 13.8 % (20-40); Mean Corpuscular Hemoglobin 29.5 pg (27.0-33.0); Mean Corpuscular Volume 89.6 fL (80.0-98.0); Mean Platelet Volume 10.8 fL (9.4-12.3); Monocytes Absolute Auto 0.7 X10*3/uL (0.1-1.2); Neutrophils Absolute Auto 8.9 x10*3/uL (2.0-8.3); Neutrophils Percent Auto 72.7 % (45-73); Platelet Count 247 X10*3/uL (160-400); Red Blood Count 4.03 X10*6/uL (4.20-5.50); Red Cell Distribution Width 15.3 % (11.0-16.0); White Blood Count 12.3 X10*3/uL (4.8-10.8)
[2023-11-28 17:14] LABS: Alanine Aminotransferase 22 U/L (0-31); Albumin Level 3.5 g/dL (3.5-5.0); Alkaline Phosphatase 111 U/L (39-117); Anion Gap 13 (12-20); Aspartate Amino Transferase 22 U/L (5-31); Bilirubin Total 0.5 mg/dL (0.0-1.0); Blood Urea Nitrogen 14 mg/dL (9-16); Calcium 8.6 mg/dL (8.4-10.2); Carbon Dioxide 25 mmol/L (22-29); Chloride 111 mmol/L (96-108); Creatinine Clr Calc Pharmacy 51.2; Estimated Glomerular Filt Rate > 60; Glucose Random 197 mg/dL (60-115); Potassium 3.5 mmol/L (3.3-5.1); Sodium 145 mmol/L (135-145); Total Protein 6.2 g/dL (6.5-8.0)
[2023-11-28 17:19] LABS: B Type Natriuretic Peptide 27 pg/mL (<100)
[2023-11-28 17:24] LABS: Troponin-I High Sensitivity < 2.7 ng/L (<3.5-17.0)
[2023-11-28 18:22] LABS: D Dimer High Sensitivity 333 NG/ML
--- NOTE | 2023-11-28 18:52 | PC.NURSE ---
Report given to Rina Romano RN
[2023-11-28 18:55] VITALS: BP 181/91; PULSE 80; RESP 18; TEMP 37.1; O2SAT 99
[2023-11-28 19:34] LABS: Appearance Urine Clear; Color Urine Yellow; Glucose Urine UA Negative (Negative); Leukocyte Esterase Urine Negative (Negative); Nitrite Urine Negative (Negative); PH 5.5 (5.0-9.0); Specific Gravity - Urine 1.025 (1.005-1.025); Urine Blood Negative (Negative); Urine Ketones Negative (Negative); Urine Protein Trace mg/dL (Neg-Trace)
[2023-11-28 19:36] VITALS: BP 181/91; PULSE 80; RESP 18; TEMP 37.1; O2SAT 99
== END 2023-11-28 19:35 | disposition home or self-care (01) ==
PROVIDERS: Nurse Practitioner Family; Registered Nurse Emergency; Emergency Provider Internal Medicine; PCP Internal Medicine
DX: I87.2 Venous insufficiency (chronic) (peripheral) (principal); R60.0 Localized edema; R06.02 Shortness of breath; E11.9 Type 2 diabetes mellitus without complications; I10 Essential (primary) hypertension; E78.5 Hyperlipidemia, unspecified; Z87.891 Personal history of nicotine dependence; Z79.02 Long term (current) use of antithrombotics/antiplatelets; Z79.899 Other long term (current) drug therapy; Z79.84 Long term (current) use of oral hypoglycemic drugs
CPT/HCPCS: 36415; 71046; 80053; 81003; 83880; 84484; 85025; 85379; 93005; 93970; 99284

== ENCOUNTER 2024-01-01 10:19 | Outpatient (AMB) | payer OTHER, SELFPAY ==
--- NOTE | 2024-01-01 10:31 | MHC.OFFVIS ---
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 States her toes jump on their own States she was seeing Dr Kovacs before and was told it was neuropathy. Saw internet marketing executive who told her there is nothing wrong with her feet. 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 She was previously seen by Drs. Kovacs and Karlo in 2021 and neither found any significant findings on vascular ultrasounds and advised her to follow up with her PCP for neuropathic pain. She states her PCP sent her back here for the continued pain. She is a former smoker and is a borderline diabetic on Metformin, unknown last A1c. She states she has had leg cramps intermittently, the last 1 was approximately 3 months ago when she was in bed, it went away on its own. She states the pain is primarily located in her feet and causes burning when walking. She also states that her feet appear cold. She was recently seen in the ER for peripheral edema; however, DVT was ruled out and was told to continue with compression stockings. [facility] Medical History Mixed hyperlipidemia Venous insufficiency of both lower extremities Abnormal bruising Obesity (BMI 30-39.9) Anxiety Insomnia GERD (gastroesophageal reflux disease) Vitamin D deficiency Ureterolithiasis Neuropathy Varicose veins of bilateral lower extremities with pain Rheumatoid arthritis Cervical spondylosis with radiculopathy Asthma Iron deficiency anemia, unspecified Vitamin B12 deficiency Hyperlipidemia Hypertension, essential, benign Diabetes mellitus Surgical History Hx of lithotripsy History of surgery on left wrist History of surgery on right wrist History of arthroplasty of left ankle History of arthroplasty of right ankle S/P VANESSA-BSO (total abdominal hysterectomy and bilateral salpingo-oophorectomy) History of arthroplasty of right knee (~2008) Family History Father Chronic mental illness Mother Diabetes Hypertension Stroke Sister Heart disease Diabetes Social History Household Members: Family Housing: Apartment Alcohol intake: never Patient Tobacco Use Status: Former Tobacco user Years Smoked: quit 6 years ago e-Cigarette/Vaping Use: Never Used Second Hand Smoke Exposure: No service: No Current occupational status: disabled Cognitive needs: No (cane) Hearing needs: No Vision needs: Yes (glasses) Review of Systems Const Reports as per HPI and Denies weakness ENT Reports Normal hearing present and Denies dizziness Card Reports as per HPI, Denies chest pain, Denies chest pain at rest, Denies chest pain with activity, Denies dyspnea and Denies dyspnea on exertion Resp Reports as per HPI, Denies cough, Denies dyspnea and Denies dyspnea on exertion GI Reports as per HPI, Denies abdominal pain, Denies nausea and Denies vomiting Musc Denies numbness Skin/Breast Reports as per HPI, Denies erythema and Denies wounds Neuro Reports Normal hearing present, Denies dizziness, Denies numbness, Denies Sensory deficit (Neuro) and Denies weakness Psych Reports no additional complaints Endo Reports no additional complaints Physical Exam Const General: healthy appearing and no acute distress Orientation/consciousness: patient oriented x3 HEENT Head: Yes normal to inspection Ears: hearing grossly normal bilaterally Mouth: Normal oral and palatal mucosa present Resp Effort & Inspection: normal respiratory effort and able to speak in complete sentences Auscultation: clear to auscultation bilaterally Cardio Jugular venous distension: no JVD Rate: regular rate Rhythm: regular rhythm Heart sounds: S1 normal heart sound present and S2 normal heart sound present Bruits: no abdominal aortic bruits, no carotid bruits, no femoral bruits and no renal bruits Peripheral pulses: Peripheral pulses 2+ throughout GI Inspection: Yes normal to inspection Palpation (GI): No Abdominal aortic bruit present Skin General skin exam: no rashes or lesions noted Wounds: no wounds Hair: normal Neuro General: patient oriented x3 Cranial nerves: Yes Normal hearing present Cognition (Neuro): normal cognition Gait exam (Neuro): Normal gait present Motor exam (neuro): 5/5 motor strength present throughout Sensory Exam: No Sensory deficit (Neuro) Extrem Other: Bilateral lower extremities: A couple spider veins noted bilaterally. No varicosities noted. Strong and palpable DP pulses. No ulcerations or wounds noted. No discoloration of the lower extremities. No peripheral edema noted. General: Yes normal to inspection, Yes full ROM, Yes capillary refill normal and Yes normal gait Assessment & Plan Assessment & Plan (1) Neuropathy: Comment: Repeat NCV and EMG done in November 2017 revealed findings consistent with neuropathy Code(s): G62.9 - Polyneuropathy, unspecified Category: Medical Plan: Isela is presenting with concerns for ongoing burning and numbness in bilateral lower extremities, most often in her feet. We reviewed ultrasounds from recently and the last couple of years, all of which were negative for any venous or arterial insufficiencies. She denies any signs or symptoms of venous or arterial insufficiency. She states she has been very frustrated with the increased pain. She has not seen anyone for the neuropathy. We discussed that likely this is not a venous or arterial condition and she will need to follow up with her PCP for a referral for neuropathic workup and treatment. We discussed continuing use of compression stockings if she has any peripheral edema (has not had any recently, since the ER visit) and elevation. We discussed the importance of physical activity/walking. We discussed that she can reach back out to us if anything changes or she notices any varicosities or increase in spider veins. We discussed the signs and symptoms of venous and arterial insufficiency. Thank you for the consult. If there are any questions or concerns, please do not hesitate to reach out to us. Coding Level of Care Code Est Pt Level 4 (54199) Diagnoses Neuropathy G62.9 Comment reviewed US, ER visit
== END 2024-01-01 10:49 | disposition home or self-care (01) ==
LOC: HO.HVS 10:20
PROVIDERS: PCP Internal Medicine; Visit Provider Physician Assistant Surgical
DX: G62.9 Polyneuropathy, unspecified (principal)
CPT/HCPCS: 99214

== ENCOUNTER → 2024-01-01 10:19 | Outpatient (BNVA) | payer OTHER, SELFPAY | PROVIDERS: PCP Internal Medicine; Visit Provider Physician Assistant Surgical | DX: G62.9 Polyneuropathy, unspecified (principal) | CPT/HCPCS: 99212 ==

== ENCOUNTER 2024-01-03 08:14 | Outpatient (AMB) | payer OTHER, SELFPAY ==
--- NOTE | 2024-01-03 08:20 | AM.OFFVISNUR ---
Intake Visit Reasons: B-12 shot Allergies No Known Allergies Allergy (Verified 01/01/24 10:35) Office Meds cyanocobalamin (vitamin B-12) 1,000 mcg/mL injection solution Performing Provider: Michael Vogel MD [facility] Administered by: Laura Mcqueen RN on 01/03/24 08:20 Dose Route Admin Location Dispensed Lot Number Expiration Date [facility] Criminal Justice Program Director 1,000 mcg IM Left deltoid 1 mL [id number] 02/24/25 61078-009-56 [employer] Assessment & Plan Assessment & Plan Orders: Orders AMB Vitamin B12 Injection Patient Supplied Today E53.8 - Deficiency of other specified B group vitamins Medications: New cyanocobalamin (vitamin B-12) 1,000 mcg IM ONCE 1 mL 0RF E53.8 - Deficiency of other specified B group vitamins
== END 2024-01-03 08:31 | disposition home or self-care (01) ==
LOC: HO.HMCH 08:15
PROVIDERS: PCP Internal Medicine; Visit Provider Internal Medicine
DX: E53.8 Deficiency of other specified B group vitamins (principal)
CPT/HCPCS: J3420

== ENCOUNTER → 2024-01-03 08:14 | Outpatient (BNVA) | payer OTHER, SELFPAY | PROVIDERS: PCP Internal Medicine; Visit Provider Internal Medicine | DX: E53.8 Deficiency of other specified B group vitamins (principal) | CPT/HCPCS: 96372 ==

== ENCOUNTER 2024-01-23 09:24 | Outpatient (AMB) | payer OTHER, SELFPAY ==
[2024-01-23 09:28] VITALS: BP 118/80; PULSE 120; O2SAT 98; BMI 34.1
--- NOTE | 2024-01-23 09:28 | A.OFFPC_ITS ---
Vital Signs 01/23/24 09:28 Height 5 ft 2 in Weight 186 lb 6 oz BMI 34.1 BP 118/80 Blood Pressure Location Lt brachial Position Sitting Pulse 120 H Pulse Source Pulse Oximeter Pulse Oximetry (%) 98 Oxygen Delivery Method Room Air Intake Visit Reasons: 4 Month F/U Credit Director Required: No Accompanied by: Self / Same As Patient Allergies No Known Allergies Allergy (Verified 01/23/24 09:46) Medication List - Last Reconciled 01/23/24 by Michael Vogel MD albuterol sulfate 2.5 mg (3 mL) inhalation Q4-6H PRN alendronate 70 mg PO QWEEK blood sugar diagnostic (FreeStyle Test strips) 1 strip miscellaneous TID cyanocobalamin (vitamin B-12) 1,000 mcg IM Q4W ergocalciferol (vitamin D2) 1,250 mcg PO QWEEK furosemide 20 mg PO QAM PRN 30 days lancets (FreeStyle Lancets) As directed three times per day lisinopril 20 mg PO DAILY metformin 1,000 mg PO BID nystatin 10 mL buccal TID 10 days Nystop (nystatin) 1 appl topical TID NS omeprazole 20 mg PO DAILY 90 days ondansetron 4 mg PO Q8H PRN oxycodone 30 mg PO Q12H 28 days potassium chloride ER (Klor-Con) 10 mEq PO DAILY 30 days pregabalin 150 mg PO TID 30 days rosuvastatin (Crestor) 40 mg PO DAILY 90 days sucralfate (Carafate) 10 mL PO BID 30 days Ventolin HFA 90 mcg/actuation (albuterol sulfate) 2 puffs inhalation Q6H PRN NS zolpidem 10 mg PO BEDTIME PRN 30 days Tobacco use date assessed: 01/23/24 Fall risk assessment: No Falls in past year Last assessed Fall Risk: 01/23/24 Dental Screening Dental Screen Date: 01/23/24 Did you have a dental visit in the last 12 months?: No Did you have a dental problem in the last 6 months where you did not have access to dental care?: No Was dental information given to patient?: No HPI 4 Month F/U HPI Details Patient comes in today for her follow up visit She continues to complain of increased pain all over, including over her lower back and lower extremities (due to chronic neuropathy) She used to see rheumatology at the [facility] in [place] but was advised about a year or two ago that other than her current Rx, they have nothing else to offer her in terms of treatment for her rheumatoid arthritis as she has failed all of the Rx that they have tried her on and recommended that she just follow up with her PCP She is presently only on oral Prednisone as needed for flare ups of her RA She is currently on Pregabalin at 150 mg TID (450 mg/day max dose) and Oxycodone 30 mg Q 12 hours but despite her current Rx, her pain remains severe and patient feels that lately, her meds are not helping much at all She also recently went to the ER for increased pain as well as swelling of her lower extremities She had venous doppler done to r/o DVT and she was subsequently sent home with no other interventions She has also been to pain management in the past few years and has also failed injection treatments into her lower back as well as her sciatic nerve She denies any headaches or dizziness lately Denies any exertional chest pains or increased SOB but notes that her heart would sometimes feel like it is racing No nausea/vomiting, no abdominal pain No change in bowel habits noted She has no follow up labs done recently although she had labs done back when she presented to the ER last month The patient is a 64-year-old female presenting with chronic neuropathic pain and chronic low back pain. Her neuropathic pain has persisted for over two years, primarily managed by rheumatology at an arthritis treatment center and now under the care of her primary care physician. Despite current treatment with pregabalin at a maximum dosage of 450 mg per day and oxycodone, her pain remains severe and unresponsive. Recently, she has also experienced peripheral edema and was evaluated in the emergency room. Her ultrasounds (Doppler studies) ruled out deep vein thrombosis as a cause for the edema. Her diabetic condition, controlled with lifestyle management and medications, was evidenced by HbA1c results at 7.4%. Over the past months, she underwent interventions such as corticosteroid injections specifically targeting sciatic nerve pain with limited success. Her history of kidney stones was followed up with urology; however, her appointment is yet to be confirmed. The patient reports feeling extreme fatigue and unexplained tachycardia, likely exacerbated by her systemic conditions. Previous treatment attempts included various medications for rheumatoid arthritis, with only prednisone currently being administered as needed. [facility] Medical History Lumbar degenerative disc disease Mixed hyperlipidemia Venous insufficiency of both lower extremities Abnormal bruising Obesity (BMI 30-39.9) Anxiety Insomnia GERD (gastroesophageal reflux disease) Vitamin D deficiency Ureterolithiasis Neuropathy Varicose veins of bilateral lower extremities with pain Rheumatoid arthritis Cervical spondylosis with radiculopathy Asthma Iron deficiency anemia, unspecified Vitamin B12 deficiency Hyperlipidemia Hypertension, essential, benign Diabetes mellitus Surgical History Hx of lithotripsy History of surgery on left wrist History of surgery on right wrist History of arthroplasty of left ankle History of arthroplasty of right ankle S/P VANESSA-BSO (total abdominal hysterectomy and bilateral salpingo-oophorectomy) History of arthroplasty of right knee (~2008) Family History Father Chronic mental illness Mother Diabetes Hypertension Stroke Sister Heart disease Diabetes Social History Household Members: Family Housing: Apartment Alcohol intake: never Patient Tobacco Use Status: Former Tobacco user Years Smoked: quit 6 years ago e-Cigarette/Vaping Use: Never Used Second Hand Smoke Exposure: No service: No Current occupational status: disabled Cognitive needs: No (cane) Hearing needs: No Vision needs: Yes (glasses) Questionnaire PHQ-9 Over the last 2 weeks, how often have you been bothered by any of the following problems? 1. Little interest or pleasure in doing things: not at all 2. Feeling down, depressed, or hopeless: not at all 3. Trouble falling or staying asleep, or sleeping too much: not at all 4. Feeling tired or having little energy: not at all 5. Poor appetite or overeating: not at all 6. Feeling bad about yourself - or that you are a failure or have let yourself or your family down: not at all 7. Trouble concentrating on things, such as reading the newspaper or watching television: not at all 8. Moving or speaking so slowly that other people could have noticed. Or the opposite - being so fidgety or restless that you have been moving around a lot more than usual: not at all 9. Thoughts that you would be better off or of hurting yourself in some way: not at all Total score: 0 Depression Screening Interpretation: Negative Depression Screening Done: Yes 71766 - PHQ-9 Billing: Yes Source: Developed by Drs. Fredy Mota, Ayanna Sharp, Gaston Garcia and colleagues, with an educational stephanie from [employer]. Thrive Questionnaire Date Thrive assessed: 01/23/24 I am a: Patient What is your living situation today?: I have a steady place to live Within the past 12 months, did the food you bought not last and you didn't have the money to get more?: Never true Within the past 12 months, did you worry whether your food would run out before you got money to buy more?: Never true Do you have trouble paying for medicines?: No Do you have trouble getting transportation to medical appointments?: No Do you have trouble paying your heating and electricity bill?: No Do you have trouble taking care of your child, family member or friend?: No Do you have trouble with day-to-day activities such as bathing, preparing meals, shopping, managing finances, etc.?: No Are you currently unemployed and looking for a job?: No Are you interested in more education?: No Please select the resources that you would like help with: None Currently or been in a relationship where the following occur: No concerns reported THRIVE Score: 0 AUDIT C Alcohol Use Questionnaire (AUDIT-C) 1. How often do you have a drink containing alcohol?: Never 3. How often do you have six or more drinks on one occasion?: Never Total Score: 0 Score Reviewed/Action Taken: Yes BALJIT-7 AMB Questionnaire BALJIT-7 Date BALJIT - 7 assessed: 01/23/24 Feeling nervous, anxious, or on edge: 0 = Not at all Not being able to stop or control worryin = Not at all Worrying too much about different things: 0 = Not at all Trouble relaxin = Not at all Being so restless that it is hard to sit still: 0 = Not at all Becoming easily annoyed or irritable: 0 = Not at all Feeling afraid as if something awful might happen: 0 = Not at all Total BALJIT-7 score (0-4 normal; 5-9 mild; 10-14 moderate; 15-21 severe): 0 Source: Developed by Drs. Fredy Mota, Ayanna Sharp, Gaston Garcia and colleagues, with an educational stephanie from [employer]. Review of Systems Const Denies chills, Reports fatigue, Denies fever(s) and Denies headache(s) ENT Denies dysphagia, Denies dizziness, Denies otalgia, Denies headache(s), Reports neck pain, Denies odynophagia and Denies sore throat Card Denies chest pain, Reports rapid heart rate (at times), Denies irregular heart rhythm and Reports dyspnea on exertion (mild) Resp Denies chest congestion, Denies cough and Reports dyspnea on exertion (mild) GI Details: reports feeling a lump on the left side of her abdomen on and off Denies abdominal pain, Denies constipation, Denies dysphagia, Denies heartburn, Denies diarrhea, Denies nausea, Denies odynophagia and Denies vomiting Denies nocturia, Denies dysuria and Denies urinary urgency Musc Details: also c/o increasing pain in her legs and feet lately Reports back pain (over the lumbar spine - chronic), Reports myalgias, Reports arthralgias (involving multiple joints; increased pain over the right hip), Reports joint swelling (on and off in both hands and feet), Reports neck pain, Reports radiating pain into limb (bilaterally) and Reports tingling (over both lower extremities, on and off) Skin/Breast Denies rash Neuro Denies dizziness, Denies headache(s), Reports radicular pain (in both lower extremities) and Reports tingling (over both lower extremities, on and off) Endo Reports fatigue Daniel/Lymph Details: on and off swelling of her legs and feet Physical exam (Primary Care) Vital Signs: Last Vital Signs Pulse 120 H 01/23/24 09:28 BP 118/80 01/23/24 09:28 Pulse Ox 98 01/23/24 09:28 Oxygen Delivery Method Room Air 01/23/24 09:28 BMI result Body Mass Index 34.1 Tobacco/Smoking Status: Tobacco use Status Tobacco use date assessed 01/23/24 01/23/24 09:36 Patient Tobacco Use Status Former Tobacco user 01/23/24 09:36 e-Cigarette/Vaping Use Never Used 01/23/24 09:36 PHQ-9: PHQ-9 Score PHQ-9: Total score 0 01/26/24 21:04 Depression Screening Interpretation: Negative Thrive Assessment: Date of Thrive Assessment Date Thrive assessed 01/23/24 01/23/24 09:36 Currently or been in a relationship where the following occur: No concerns reported Const General: no acute distress and alert HENMT Ears: TM's normal bilaterally and EAC's normal Throat: Yes posterior oropharynx normal and Yes tonsils normal (no TP congestion noted) Neck Neck: Yes no lymphadenopathy and Yes supple Thyroid: Thyroid normal Resp Auscultation: clear to auscultation bilaterally, no rales and no wheezes Cardio Rate: regular rate Rhythm: regular rhythm Heart sounds: no murmurs GI Palpation (GI): Soft to palpation, nontender, no guarding and no masses Auscultation: normal bowel sounds General: Yes no CVA tenderness Back/Spine/Pelvis Back: no CVA tenderness Cervical Spine: Cervical spine tenderness Thoracic/Lumbar Spine: paraspinal muscle tenderness on the left in the lower thoracic and in the upper thoracic and lumbar spinal tenderness Skin Rashes: no rashes Extrem General: No clubbing, No cyanosis and Yes edema ((+) edema of both hands and feet) Right upper extremity: Extremity exam: right hand Details: tenderness Left upper extremity: hand Details: tenderness Results AMB Hemoglobin A1c AMB Hemoglobin A1c 7.4 % Last Edit by SRINIVASA Akins on 01/23/24 09 :59 Results Reviewed Results Reviewed: Laboratory Last Values Hgb A1c (Clinic) 7.4 % (4.0-6.0) H 01/23/24 09:58 Laboratory Tests 11/28/23 16:47 WBC 12.3 H Hgb 11.9 L Hct 36.1 L Plt Count 247 D Sodium 145 Potassium 3.5 Creatinine 0.89 Estimated GFR > 60 Random Glucose 197 H Calcium 8.6 D AST 22 ALT 22 Coding Level of Care Code Est Pt Level 4 (05631) Complex EM visit Add On G2211 Diagnoses Type 2 diabetes mellitus with diabetic neuropathy, without long-term current use of insulin E11.40 Diabetes mellitus complication detail: with unspecified neuropathy Diabetes mellitus complication status: with neurologic complications Diabetes mellitus terminal carman insulin use: without terminal carman use Diabetes mellitus type: type 2 Neuropathy G62.9 Mixed hyperlipidemia E78.2 Essential hypertension I10 Mild intermittent asthma without complication J45.20 Asthma complication type: uncomplicated Asthma persistence: intermittent Asthma severity: mild Iron deficiency anemia secondary to inadequate dietary iron intake D50.8 Iron deficiency anemia type: inadequate dietary iron intake Degeneration of intervertebral disc of lumbar region with discogenic back pain M51.360 Disc-related pain type: discogenic back pain only Cervical spondylosis with radiculopathy M47.22 Rheumatoid arthritis with positive rheumatoid factor, involving unspecified site M05.9 Rheumatoid arthritis location: unspecified site Rheumatoid factor presence: with rheumatoid factor Vitamin B12 deficiency E53.8 Vitamin D deficiency E55.9 Gastroesophageal reflux disease without esophagitis K21.9 Esophagitis presence: without esophagitis Venous insufficiency of both lower extremities I87.2 Bilateral renal stones N20.0 Primary insomnia F51.01 Insomnia type: primary Anxiety F41.9 Obesity (BMI 30-39.9) E66.9 Additional Codes PHQ-9 - 83950 - PHQ-9 Billing: Yes ([id number]) Assessment & Plan Assessment & Plan (1) Diabetes mellitus: Code(s): E11.9 - Type 2 diabetes mellitus without complications Category: Medical Qualifiers: Diabetes mellitus complication detail: with unspecified neuropathy Diabetes mellitus complication status: with neurologic complications Diabetes mellitus correction insulin use: without terminal carman use Diabetes mellitus type: type 2 Qualified Code(s): E11.40 - Type 2 diabetes mellitus with diabetic neuropathy, unspecified Plan: Her in-office HgbA1c today is at 7.4% (her HgbA1c was previously at 6.9% a few months ago and 6.4% prior to that) - goal is < 7.0% Reinforced diabetic diet Continue Metformin 1000 mg BID for now but have cautioned her that her diabetes control appears to be gradually declining as evidenced by the progressive increase in her HgbA1c over the past year and if it goes up further at this next appointment, we will have to address this by likely starting her on some additional Rx for her diabetes (2) Neuropathy: Comment: Repeat NCV and EMG done in November 2017 revealed findings consistent with ne uropathy Code(s): G62.9 - Polyneuropathy, unspecified Category: Medical Plan: Continue Pregabalin 150 mg TID and Oxycodone 30 mg Q 12 hours even though patient states that her Rx have not been helping her lately Will try starting her additionally on Duloxetine 30 mg BID (3) Mixed hyperlipidemia: Code(s): E78.2 - Mixed hyperlipidemia Category: Medical Plan: She was not able to get her follow up labs done prior to her appointment today although she did have some labs done at the ER last month - these however were non-fasting and did not include her fasting lipids Her cholesterol levels were reasonably controlled when last checked in January 2023 - TC 191, TG 169, HDL 44 and LDL 114 Reinforced low cholesterol diet Continue Rosuvastatin 20 mg QD and Ezetimibe 10 mg QD Will recheck her labs and fasting lipids in 4 months for follow up - have advised patient that she should make sure she gets these done as it will have been over a year by then since she last had her cholesterol levels checked (4) Essential hypertension: Code(s): I10 - Essential (primary) hypertension Category: Medical Plan: Reinforced low sodium diet - goal is systolic BP of at least 120 to 130 mm or less Continue HCTZ 25 mg QD and Lisinopril 20 mg QD (5) Asthma: Code(s): J45.909 - Unspecified asthma, uncomplicated Category: Medical Qualifiers: Asthma complication type: uncomplicated Asthma persistence: intermittent Asthma severity: mild Qualified Code(s): J45.20 - Mild intermittent asthma, uncomplicated Plan: Stable/controlled - states that she uses her Albuterol HFA inhaler only as needed (6) Iron deficiency anemia, unspecified: Code(s): D50.9 - Iron deficiency anemia, unspecified Category: Medical Qualifiers: Iron deficiency anemia type: inadequate dietary iron intake Qualified Code(s): D50.8 - Other iron deficiency anemias Plan: Continue IV iron Tx as needed Follow up with hematology (Dr. Anthony) as scheduled She has been referred to GI for screening colonoscopy (recalls having one done at [facility] a few years ago but have been unable to locate any record of this in [place] or [facility] - patient states that her procedure was aborted at the time as she started bleeding during the procedure) She was seen last year for precolonoscopy but anesthesia recommended cardiac clearance first She has since been cleared but has not yet been scheduled and this has yet to be done - she was referred back to GI for colonoscopy at her last visit but she is still waiting for this to be scheduled (7) Lumbar degenerative disc disease: Code(s): M51.369 - Other intervertebral disc degeneration, lumbar region without mention of lumbar back pain or lower extremity pain Category: Medical Qualifiers: Disc-related pain type: discogenic back pain only Qualified Code(s): M51.360 - Other intervertebral disc degeneration, lumbar region with discogenic back pain only Plan: She had a non-traumatic compression fracture of eleventh thoracic vertebra first seen on repeat lumbar spine x-rays done in late 2022 - this was most likely at least a partial source of her recent recurrent left mid to lower back pain and discomfort It was suspected that this may have resulted from her last ESWL a few months prior She reportedly had BMD done at Dr. Kennedy's office on 05/20/2021 and her left femur T-score at the time was at -1.8 Repeat spine x-rays done last year showed some progression of her degenerative changes from previous Continue Oxycodone 30 mg BID PRN and Pregabalin 150 mg TID Follow up with [facility] as scheduled for continuing pain management although she states that pain management have not been helping much lately (8) Cervical spondylosis with radiculopathy: Code(s): M47.22 - Other spondylosis with radiculopathy, cervical region Category: Medical Plan: Continue Oxycodone 30 mg Q 12 hours PRN, Cyclobenzaprine 5 mg TID PRN and Lidocaine 5% ointment topically TID PRN MRI of the cervical spine previously requested for was denied by insurance (9) Rheumatoid arthritis: Comment: Is on Prednisone 5 mg-20 mg daily, Methotrexate tablets 2.5 mg 6 tablets once a day on Sundays. Rinvoq ER 15 mg qd has been discontinued. Code(s): M06.9 - Rheumatoid arthritis, unspecified Category: Medical Qualifiers: Rheumatoid arthritis location: unspecified site Rheumatoid factor presence: with rheumatoid factor Qualified Code(s): M05.9 - Rheumatoid arthritis with rheumatoid factor, unspecified Plan: Continue Prednisone 2.5 mg QD as needed for flare ups She was most recently on Methotrexate injection (Rasuvo) 20 mg once a week but this was also discontinued due to side effects (rash) Patient so far has failed multiple treatments for RA - was unable to tolerate Rinvoq (diarrhea) and had poor or no clinical response to Xeljanz, Olumiant, Cimzia and Rituximab; she has also failed anti-TNF therapies, as well as Ac temra, Orencia and multiple other DMARDs including Azathioprine Follow up with rheumatology (Dr. Kennedy) as scheduled (10) Vitamin B12 deficiency: Code(s): E53.8 - Deficiency of other specified B group vitamins Category: Medical Plan: Continue oral Vitamin B12 1000 mcg QD and B12 injection monthly (11) Vitamin D deficiency: Code(s): E55.9 - Vitamin D deficiency, unspecified Category: Medical Plan: Continue OTC Vitamin D supplements as well as her weekly 37567 units of Vitamin D2 (12) GERD (gastroesophageal reflux disease): Comment: continue ppi- avoid culprits EGD- Code(s): K21.9 - Gastro-esophageal reflux disease without esophagitis Category: Medical Qualifiers: Esophagitis presence: without esophagitis Qualified Code(s): K21.9 - Gastro-esophageal reflux disease without esophagitis Plan: Dietary restrictions reinforced Continue Omeprazole 20 mg QD PRN (13) Venous insufficiency of both lower extremities: Code(s): I87.2 - Venous insufficiency (chronic) (peripheral) Category: Medical Plan: Follow up with vascular surgery (Dr. Yu Dietrich) as scheduled She has been advised to just continue with conservative treatments for now due to her multiple comorbidities (14) Bilateral renal stones: Comment: Left ESWL 12/17 Code(s): N20.0 - Calculus of kidney Category: Medical Plan: S/P repeat ESWL last year but states that she is still experiencing recurrent pain and discomfort, and more recently, pain over her left lower throacic and lumbar area Follow up with urology as scheduled (15) Insomnia: Code(s): G47.00 - Insomnia, unspecified Category: Medical Qualifiers: Insomnia type: primary Qualified Code(s): F51.01 - Primary insomnia Plan: Sleep hygiene reinforced Continue Zolpidem 10 mg Q HS PRN (16) Anxiety: Code(s): F41.9 - Anxiety disorder, unspecified Category: Medical Plan: States that her anxiety has been controlled lately - used to take Fluoxetine but she has not been on this in a while now (17) Obesity (BMI 30-39.9): Code(s): E66.9 - Obesity, unspecified Category: Medical Plan: Reinforced diet; exercise and weight loss are unrealistic at present due to her increasing low back pain and lumbar radicular pain and other multiple comorbidities Plan Follow up in 4 months Orders: Orders AMB Hemoglobin A1c 01/23/24 Z13.9 - Encounter for screening, unspecified Medications: New duloxetine 30 mg PO BID 30 days 60 caps 3RF
== END 2024-01-23 10:20 | disposition home or self-care (01) ==
PROVIDERS: PCP Internal Medicine; Visit Provider Internal Medicine
DX: E11.40 Type 2 diabetes mellitus with diabetic neuropathy, unspecified (principal); G62.9 Polyneuropathy, unspecified; M05.9 Rheumatoid arthritis with rheumatoid factor, unspecified; E78.2 Mixed hyperlipidemia; I10 Essential (primary) hypertension; J45.20 Mild intermittent asthma, uncomplicated; D50.8 Other iron deficiency anemias; M51.360 Other intervertebral disc degeneration, lumbar region with discogenic back pain only; M47.22 Other spondylosis with radiculopathy, cervical region; E53.8 Deficiency of other specified B group vitamins; E55.9 Vitamin D deficiency, unspecified; K21.9 Gastro-esophageal reflux disease without esophagitis

== ENCOUNTER → 2024-01-23 09:24 | Outpatient (BNVA) | payer OTHER, SELFPAY | PROVIDERS: PCP Internal Medicine; Visit Provider Internal Medicine | DX: E11.40 Type 2 diabetes mellitus with diabetic neuropathy, unspecified (principal); G62.9 Polyneuropathy, unspecified; E78.2 Mixed hyperlipidemia; I10 Essential (primary) hypertension; D50.8 Other iron deficiency anemias; M51.360 Other intervertebral disc degeneration, lumbar region with discogenic back pain only; M47.22 Other spondylosis with radiculopathy, cervical region; M05.9 Rheumatoid arthritis with rheumatoid factor, unspecified; E53.8 Deficiency of other specified B group vitamins; E55.9 Vitamin D deficiency, unspecified; K21.9 Gastro-esophageal reflux disease without esophagitis; I87.2 Venous insufficiency (chronic) (peripheral); N20.0 Calculus of kidney; F51.01 Primary insomnia; F41.9 Anxiety disorder, unspecified; E66.9 Obesity, unspecified; Z68.34 Body mass index [BMI] 34.0-34.9, adult; Z71.3 Dietary counseling and surveillance | CPT/HCPCS: 83036; 96127; 99212 ==

== ENCOUNTER 2024-02-01 08:40 | Outpatient (AMB) | payer OTHER, SELFPAY ==
--- NOTE | 2024-02-01 08:47 | AM.OFFVISNUR ---
Intake Visit Reasons: B12 Shot Allergies No Known Allergies Allergy (Verified 01/23/24 09:46) Office Meds cyanocobalamin (vitamin B-12) 1,000 mcg/mL injection solution Performing Provider: Michael Vogel MD [facility] Administered by: Halley King LPN on 02/01/24 08:47 Dose Route Admin Location Dispensed Lot Number Expiration Date [facility] [employer] 1,000 mcg IM left deltoid 1 mL [id number] 01/25/25 29863-431-45 [place] Assessment & Plan Assessment & Plan Orders: Orders AMB Vitamin B12 Injection Patient Supplied Today E53.8 - Deficiency of other specified B group vitamins Medications: New cyanocobalamin (vitamin B-12) 1,000 mcg IM ONCE 1 mL 0RF E53.8 - Deficiency of other specified B group vitamins
== END 2024-02-01 09:27 | disposition home or self-care (01) ==
PROVIDERS: PCP Internal Medicine; Visit Provider Internal Medicine
DX: E53.8 Deficiency of other specified B group vitamins (principal)

== ENCOUNTER → 2024-02-01 08:40 | Outpatient (BNVA) | payer OTHER, SELFPAY | PROVIDERS: PCP Internal Medicine; Visit Provider Internal Medicine | DX: E53.8 Deficiency of other specified B group vitamins (principal) | CPT/HCPCS: 96372; J3420 ==

== ENCOUNTER 2024-04-28 08:39 | Outpatient (REF) | payer OTHER, SELFPAY ==
--- OUTSIDE RECORDS SUMMARY | 2024-04-28 09:10 | XMS_ITS | Clinical Summary ---
Author Organization [facility] Address [address] [place] [address] Phone Care Team Providers Care Credit Intern Name Role Phone Michael Vogel MD Primary Care Provider [phone] Allergies Active Allergy Reactions Criticality Noted Date Comments Iodinated Contrast Media Low 08/21/2022 Medications Ventolin HFA 108 (90 Base) MCG/ACT inhaler INHALE 2 PUFFS EVERY 6 HOURS NEEDED FOR BRONCHOSPASM 3 Active alendronate (FOSAMAX) 70 MG tablet TAKE 1 TABLET BY MOUTH ONCE WEEKLY WITH FULL GLASS OF WATER *NO FOOD/DRINK FOR 30 MINUTES* 3 Active cyanocobalamin (VITAMIN B-12) 1000 MCG/ML injection INJECT 1 ML INTO THE MUSCLE EVERY 4 WEEKS 3 Active ergocalciferol 1.25 MG (27256 UT) capsule TAKE 1 CAPSULE BYMOUTH ONCE EVERY WEEK 3 Active ezetimibe (ZETIA) 10 MG tablet Take 10 mg by mouth 1 (one) time each day 3 Active HYDROCHLOROTHIA ZIDE PO Take 25 mg by mouth 1 (one) time each day 3 Active lisinopril 20 MG tablet Take 20 mg by mouth 1 (one) time each day 3 Active metFORMIN (GLUCOPHAGE) 1000 MG tablet Take 1,000 mg by mouth in the morning and 1,000 mg in the evening. Take with meals. 3 Active Rasuvo 20 MG/0.4ML solution auto-injector 3 Active omeprazole (PriLOSEC) [address] capsule Take by mouth 1 (one) time each day 3 Active oxyCODONE (ROXICODONE) 30 MG immediate release tablet TAKE 1 TABLET BY MOUTH EVERY 6 HOURS NEEDED FOR PAIN X28 DAYS 3 Active pramipexole (MIRAPEX) 0.25 MG tablet TAKE 1 TABLET BY MOUTH ONCE A DAY AT 5PM 3 Active pregabalin (LYRICA) 75 MG capsule TAKE 1 CAPSULE BY MOUTH TWICE A DAY FOR 30 DAYS 3 Active rosuvastatin (CRESTOR) 40 MG tablet TAKE 1 TABLET BY MOUTH EVERY DAY FOR 90 DAYS 3 Active zolpidem (AMBIEN) 10 MG tablet TAKE 1 TABLET BY MOUTH EVERY DAY AT BEDTIME NEEDED FOR INSOMNIA X30 DAYS 3 Active predniSONE (DELTASONE) 10 MG tablet Take 20 tablets by mouth 1 (one) time each day 3 Active Active Problems Problem Noted Date Diagnosed Date 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 Mass of soft tissue 12/11/2019 Social History Tobacco Use Types Packs/Day Years Used Date Smoking Tobacco: Former Cigarettes Smokeless Tobacco: Never Tobacco Cessation:Counseling Given: Not Answered Alcohol Use Standard Drinks/Week Comments Never 0 (1 standard drink = 0.6 oz pur e alcohol) Comments Unknown Sex and Gender Information Value Date Recorded Sex Assigned at Not on file Legal Sex Female 8:16 AM EST Gender Identity Not on file Sexual Orientation Not on file Last Filed Vital Signs Vital Sign Reading Time Taken Comments Blood Pressure 138/82 10/05/2022 1:23 PM EDT Pulse 94 10/05/2022 1:23 PM EDT Temperature - - Respiratory Rate - - Oxygen Saturation 97% 08/21/2022 1:56 PM EDT Inhaled Oxygen Concentration - - Weight 85.3 kg (188 lb) 10/05/2022 1:23 PM EDT Height 157.5 cm (5' 2 ) 08/21/2022 1:56 PM EDT Body Mass Index 34.39 08/21/2022 1:56 PM EDT Plan of Treatment Health Maintenance Due Date Last Done Comments Breast Cancer Screening 1960 Pneumococcal Vaccine: Pediat rics (0 to 5 Years) and At-Risk Patients (6 to 64 Years) (1 of 2 - PCV) 01/15/1966 Colorectal Cancer Screening: Annual FOBT 01/15/2009 Colorectal Cancer Screening: Colonoscopy 01/15/2009 Colorectal Cancer Screening: Sigmoidoscopy 01/15/2009 Influenza Vaccine (#1) 2023 01/09/2017 Hepatitis B Vaccine Aged Out No longe r eligible based on patient's age to complete this topic Insurance Care Teams Credit Intern Relationship Specialty Start Date End Date Michael Vogel MD [address] [place] [address] PCP - General Internal Medicine 05/03/22
[2024-04-28 09:26] LABS: MANUAL DIFF FLAG NO
[2024-04-28 10:03] LABS: Basophils Absolute Auto 0.1 X10*3/uL (0.0-0.2); Basophils Percent Auto 0.6 % (0-2); Eosinophils Absolute Auto 0.4 X10*3/uL (0.0-0.4); Eosinophils Percent Auto 3.8 % (0-4); Hematocrit 38.5 % (37.0-47.0); Hemoglobin 12.8 g/dl (12.0-16.0); Imm Gran Abs Auto 0.05 X10*3/uL (0.00-0.03); Imm Gran Pct Auto 0.5 % (0.0-0.4); Lymphocytes Absolute Auto 1.7 X10*3/uL (1.2-4.9); Lymphocytes Percent Auto 17.5 % (20-40); Mean Corpuscular HGB Conc 33.2 g/dl (31.0-35.0); Mean Corpuscular Hemoglobin 29.4 pg (27.0-33.0); Mean Corpuscular Volume 88.3 fL (80.0-98.0); Mean Platelet Volume 11.3 fL (9.4-12.3); Monocytes Absolute Auto 0.7 X10*3/uL (0.1-1.2); Monocytes Percent Auto 7.3 % (2-11); Neutrophils Absolute Auto 6.6 x10*3/uL (2.0-8.3); Neutrophils Percent Auto 70.3 % (45-73); Platelet Count 290 X10*3/uL (160-400); Red Blood Count 4.36 X10*6/uL (4.20-5.50); Red Cell Distribution Width 14.5 % (11.0-16.0); White Blood Count 9.4 X10*3/uL (4.8-10.8)
[2024-04-28 10:08] LABS: Appearance Urine Clear; Color Urine Yellow; Glucose Urine UA Negative (Negative); Leukocyte Esterase Urine Negative (Negative); Nitrite Urine Negative (Negative); PH 5.5 (5.0-9.0); Specific Gravity - Urine 1.025 (1.005-1.025); UMIC TRIGGER UACC YES; Urine Blood Negative (Negative); Urine Ketones Trace mg/dL (Negative); Urine Protein 30 (1+) mg/dL (Neg-Trace)
[2024-04-28 10:21] LABS: Bacteria Urine None Seen (None Seen); RBC Urine 0-2 /HPF (0-2); WBC Urine 0-5 /HPF (0-5)
[2024-04-28 10:34] LABS: Estimated Average Glucose 134 mg/dL; Hemoglobin A1C 151.7672 umol/L; Hemoglobin A1c % 6.3 % (<6.0); Total Hemoglobin (HGBA1C) 3326.7299 umol/L
[2024-04-28 10:36] LABS: Erythrocyte Sedimentation Rate 36 MM/HR (0-20)
[2024-04-28 10:54] LABS: Creatinine Urine 200.28 mg/dL; Microalbum/Creatinine Ratio Ur 13.4 ug/mg cr (<30)
[2024-04-28 10:55] LABS: Alanine Aminotransferase 11 U/L (0-31); Albumin Level 3.9 g/dL (3.5-5.0); Alkaline Phosphatase 81 U/L (39-117); Anion Gap 15 (12-20); Aspartate Amino Transferase 20 U/L (5-31); Bilirubin Total 0.8 mg/dL (0.0-1.0); Blood Urea Nitrogen 12 mg/dL (9-16); C Reactive Protein 1.25 mg/dL (< or = 0.50); Calcium 9.2 mg/dL (8.4-10.2); Carbon Dioxide 24 mmol/L (22-29); Chloride 108 mmol/L (96-108); Cholesterol 161 mg/dL (<200); Estimated Glomerular Filt Rate 60; Glucose Fasting 131 mg/dL (60-99); HDL Cholesterol 46 mg/dL (>40); LDL Cholesterol Calculated 82 mg/dL (<100); Potassium 3.3 mmol/L (3.3-5.1); Sodium 144 mmol/L (135-145); Total Protein 7.5 g/dL (6.5-8.0); Triglycerides 166 mg/dL (<150)
[2024-04-28 10:59] LABS: TSH reflex Free T4 0.75 uIU/mL (0.32-4.0); Vitamin D 25-OH Total 23.7 ng/mL (>30)
[2024-04-28 11:30] LABS: Folate 5.2 ng/mL (> or = 4.0); Vitamin B12 505 pg/mL (200-900)
== END 2024-04-28 08:40 | disposition home or self-care (01) ==
LOC: HO.LAB 08:39
PROVIDERS: PCP Internal Medicine; Visit Provider Internal Medicine
DX: M05.9 Rheumatoid arthritis with rheumatoid factor, unspecified (principal); D64.9 Anemia, unspecified; E55.9 Vitamin D deficiency, unspecified; E11.9 Type 2 diabetes mellitus without complications; E78.00 Pure hypercholesterolemia, unspecified; E53.8 Deficiency of other specified B group vitamins; M79.7 Fibromyalgia
CPT/HCPCS: 36415; 80053; 80061; 81001; 81003; 82043; 82306; 82570; 82607; 82746; 83036; 84443; 85025; 85652; 86140

== ENCOUNTER 2024-06-02 08:37 | Outpatient (AMB) | payer OTHER, SELFPAY ==
[2024-06-02 08:45] VITALS: BP 128/86; PULSE 88; O2SAT 99; BMI 33.5
--- NOTE | 2024-06-02 08:45 | MHC.PC.OV ---
Vital Signs 06/02/24 08:45 Height 5 ft 2 in Weight 183 lb 4 oz BMI 33.5 BP 128/86 Blood Pressure Location Lt brachial Position Sitting Pulse 88 Pulse Source Pulse Oximeter Pulse Oximetry (%) 99 Oxygen Delivery Method Room Air Intake Visit Reasons: neuropathy, lumbar DDD, RA, OA, DM, hyperlipidemia Facilities Maintenance Assistant Required: No Accompanied by: Self / Same As Patient Allergies No Known Allergies Allergy (Verified 06/02/24 09:34) Medication List - Last Reconciled 06/02/24 by Michael Vogel MD albuterol sulfate 2.5 mg (3 mL) inhalation Q4-6H PRN albuterol sulfate 2.5 mg (3 mL) continuous nebulization QID PRN 30 days alendronate 70 mg PO QWEEK blood sugar diagnostic (FreeStyle Test strips) 1 strip miscellaneous TID cyanocobalamin (vitamin B-12) 1,000 mcg IM Q4W duloxetine 30 mg PO BID 30 days ergocalciferol (vitamin D2) 1,250 mcg PO QWEEK furosemide 20 mg PO QAM PRN 30 days lancets (FreeStyle Lancets) As directed three times per day lisinopril 20 mg PO DAILY metformin 1,000 mg PO BID nebulizer accessories As directed nebulizers As directed nystatin 10 mL buccal TID 10 days Nystop (nystatin) 1 appl topical TID NS omeprazole 20 mg PO DAILY 90 days ondansetron 4 mg PO Q8H PRN oxycodone 30 mg PO Q12H 28 days potassium chloride ER (Klor-Con) 10 mEq PO DAILY 30 days prednisone 2.5 mg PO DAILY pregabalin 150 mg PO TID 30 days rosuvastatin (Crestor) 40 mg PO DAILY 90 days sucralfate (Carafate) 10 mL PO BID 30 days Ventolin HFA 90 mcg/actuation (albuterol sulfate) 2 puffs inhalation Q6H PRN NS zolpidem 10 mg PO BEDTIME PRN 30 days Tobacco use date assessed: 06/02/24 Fall risk assessment: No Falls in past year Last assessed Fall Risk: 06/02/24 Dental Screening Dental Screen Date: 06/02/24 Did you have a dental visit in the last 12 months?: No Did you have a dental problem in the last 6 months where you did not have access to dental care?: No Was dental information given to patient?: No HPI neuropathy, lumbar DDD, RA, OA, DM, hyperlipidemia HPI Details Patient comes in today for her follow up visit States that she continues to experience recurrent increased pain and burning sensation over her legs and feet, with the burning sensation in her feet feeling worse at night Relates that she is also experiencing on and off swelling of her legs and feet lately She recalls getting some injection into her lower back from [facility] a few months ago that provided her with some relief but she has not been able to get another appointment scheduled with [facility] since She also continues to follow up with Dr. [facility] for her RA and states that she received injections into a few of her joints recently, including her hands (knuckles) and her wrists She is being maintained only on oral Prednisone, currently at 2.5 mg QD, for her rheumatoid arthritis as she has apparently tried and failed all of the anti-TNFs and DMARDs available in the market today, including Rinvoq, Xeljanz, Olumiant, Cimzia, Rituximab, Actemra, Orencia, Azathioprine and MTx Patient states that aside from her recurrent neuropathic pain and on and off swelling, she feels okay She denies any headaches or dizziness Denies any chest pains, no SOB No nausea/vomiting, no abdominal pain No change in bowel habits noted She had her follow up labs done last month - to discuss her results [facility] Medical History Lumbar degenerative disc disease Mixed hyperlipidemia Venous insufficiency of both lower extremities Abnormal bruising Obesity (BMI 30-39.9) Anxiety Insomnia GERD (gastroesophageal reflux disease) Vitamin D deficiency Ureterolithiasis Neuropathy Varicose veins of bilateral lower extremities with pain Rheumatoid arthritis Cervical spondylosis with radiculopathy Asthma Iron deficiency anemia, unspecified Vitamin B12 deficiency Hyperlipidemia Hypertension, essential, benign Diabetes mellitus Surgical History Hx of lithotripsy History of surgery on left wrist History of surgery on right wrist History of arthroplasty of left ankle History of arthroplasty of right ankle S/P VANESSA-BSO (total abdominal hysterectomy and bilateral salpingo-oophorectomy) History of arthroplasty of right knee (~2008) Family History Father Chronic mental illness Mother Diabetes Hypertension Stroke Sister Heart disease Diabetes Social History Household Members: Family Housing: Apartment Alcohol intake: never Patient Tobacco Use Status: Former Tobacco user Years Smoked: quit 6 years ago e-Cigarette/Vaping Use: Never Used Second Hand Smoke Exposure: No service: No Current occupational status: disabled Cognitive needs: No (cane) Hearing needs: No Vision needs: Yes (glasses) Questionnaire PHQ-9 Over the last 2 weeks, how often have you been bothered by any of the following problems? 1. Little interest or pleasure in doing things: not at all 2. Feeling down, depressed, or hopeless: not at all 3. Trouble falling or staying asleep, or sleeping too much: not at all 4. Feeling tired or having little energy: not at all 5. Poor appetite or overeating: not at all 6. Feeling bad about yourself - or that you are a failure or have let yourself or your family down: not at all 7. Trouble concentrating on things, such as reading the newspaper or watching television: not at all 8. Moving or speaking so slowly that other people could have noticed. Or the opposite - being so fidgety or restless that you have been moving around a lot more than usual: not at all 9. Thoughts that you would be better off or of hurting yourself in some way: not at all Total score: 0 Depression Screening Interpretation: Negative Depression Screening Done: Yes 23182 - PHQ-9 Billing: Yes Source: Developed by Drs. Fredy Mota, Ayanna Sharp, Gaston Garcia and colleagues, with an educational stephanie from [employer]. Thrive Questionnaire Date Thrive assessed: 06/02/24 I am a: Patient What is your living situation today?: I have a steady place to live Within the past 12 months, did the food you bought not last and you didn't have the money to get more?: Never true Within the past 12 months, did you worry whether your food would run out before you got money to buy more?: Never true Do you have trouble paying for medicines?: No Do you have trouble getting transportation to medical appointments?: No Do you have trouble paying your heating and electricity bill?: No Do you have trouble taking care of your child, family member or friend?: No Do you have trouble with day-to-day activities such as bathing, preparing meals, shopping, managing finances, etc.?: No Are you currently unemployed and looking for a job?: No Are you interested in more education?: No Please select the resources that you would like help with: None Currently or been in a relationship where the following occur: No concerns reported THRIVE Score: 0 AUDIT C Alcohol Use Questionnaire (AUDIT-C) 1. How often do you have a drink containing alcohol?: Never 3. How often do you have six or more drinks on one occasion?: Never Total Score: 0 Score Reviewed/Action Taken: Yes BALJIT-7 AMB Questionnaire BALJIT-7 Date BALJIT - 7 assessed: 06/02/24 Feeling nervous, anxious, or on edge: 0 = Not at all Not being able to stop or control worryin = Not at all Worrying too much about different things: 0 = Not at all Trouble relaxin = Not at all Being so restless that it is hard to sit still: 0 = Not at all Becoming easily annoyed or irritable: 0 = Not at all Feeling afraid as if something awful might happen: 0 = Not at all Total BALJIT-7 score (0-4 normal; 5-9 mild; 10-14 moderate; 15-21 severe): 0 Source: Developed by Drs. Fredy Mota, Ayanna Sharp, Gaston Garcia and colleagues, with an educational stephanie from [employer]. Review of Systems Const Denies chills, Reports fatigue, Denies fever(s) and Denies headache(s) ENT Denies dysphagia, Denies dizziness, Denies otalgia, Denies headache(s), Reports neck pain, Denies odynophagia and Denies sore throat Card Denies chest pain, Reports rapid heart rate (at times), Denies irregular heart rhythm and Reports dyspnea on exertion (mild) Resp Denies chest congestion, Denies cough and Reports dyspnea on exertion (mild) GI Denies abdominal pain, Denies constipation, Denies dysphagia, Denies heartburn, Denies diarrhea, Denies nausea, Denies odynophagia and Denies vomiting Denies difficulty voiding, Denies nocturia, Denies dysuria and Denies urinary urgency Musc Details: c/o increasing pain in her legs and feet lately Reports back pain (over the lumbar spine - chronic), Reports myalgias, Reports arthralgias (involving multiple joints; increased pain over the right hip), Reports joint swelling (on and off in both hands and feet), Reports neck pain, Reports radiating pain into limb (bilaterally) and Reports tingling (over both lower extremities, on and off) Skin/Breast Denies rash Neuro Reports burning sensations (in her feet, on and off, worse at night), Denies dizziness, Denies headache(s), Reports radicular pain (in both lower extremities) and Reports tingling (over both lower extremities, on and off) Endo Reports fatigue Daniel/Lymph Details: on and off swelling of her legs and feet Physical exam (Primary Care) Vital Signs: Last Vital Signs Pulse 88 06/02/24 08:45 BP 128/86 06/02/24 08:45 Pulse Ox 99 06/02/24 08:45 Oxygen Delivery Method Room Air 06/02/24 08:45 BMI result Body Mass Index 33.5 Tobacco/Smoking Status: Tobacco use Status Tobacco use date assessed 06/02/24 06/02/24 08:52 Patient Tobacco Use Status Former Tobacco user 06/02/24 08:52 e-Cigarette/Vaping Use Never Used 06/02/24 08:52 PHQ-9: PHQ-9 Score PHQ-9: Total score 0 06/02/24 08:52 Depression Screening Interpretation: Negative Thrive Assessment: Date of Thrive Assessment Date Thrive assessed 06/02/24 06/02/24 08:52 Currently or been in a relationship where the following occur: No concerns reported Const General: no acute distress and alert HENMT Ears: TM's normal bilaterally and EAC's normal Throat: Yes posterior oropharynx normal and Yes tonsils normal (no TP congestion noted) Neck Neck: Yes supple and No lymphadenopathy Thyroid: Thyroid normal Resp Auscultation: clear to auscultation bilaterally, no rales and no wheezes Cardio Rate: regular rate Rhythm: regular rhythm Heart sounds: no murmurs GI Palpation (GI): Soft to palpation, nontender, no guarding and no masses Auscultation: normal bowel sounds General: Yes no CVA tenderness Back/Spine/Pelvis Back: no CVA tenderness Cervical Spine: Cervical spine tenderness Thoracic/Lumbar Spine: paraspinal muscle tenderness on the left in the lower thoracic and in the upper thoracic and lumbar spinal tenderness Skin Rashes: no rashes Extrem Other: (+) contractures noted on both hands, with limited ROM as a result General: No clubbing, No cyanosis and Yes edema ((+) edema of both hands and feet) Right upper extremity: Extremity exam: right hand Details: tenderness Left upper extremity: hand Details: tenderness Results Reviewed Results Reviewed: Laboratory Tests 04/28/24 04/28/24 04/28/24 09:20 09:23 09:24 WBC 9.4 Hgb 12.8 Hct 38.5 Plt Count 290 ESR 36 H Sodium 144 Potassium 3.3 Creatinine 0.94 Estimated GFR 60 Fasting Glucose 131 H Hemoglobin A1c % 6.3 H Calcium 9.2 D AST 20 ALT 11 C-Reactive Protein 1.25 H Triglycerides 166 H Cholesterol 161 LDL Cholesterol, Calc 82 HDL Cholesterol 46 Vitamin B12 505 25-OH Vitamin D Total 23.7 L TSH 0.75 Urine pH 5.5 Ur Specific [place] 1.025 Urine Protein 30 (1+) H Urine Glucose (UA) Negative Urine Blood Negative Urine Nitrite Negative Ur Leukocyte Esterase Negative Microalb/Creat Ratio 13.4 Coding Level of Care Code Est Pt Level 4 (36105) Complex EM visit Add On G2211 Diagnoses Type 2 diabetes mellitus with diabetic neuropathy, without long-term current use of insulin E11.40 Diabetes mellitus type: type 2 Diabetes mellitus parts counterman insulin use: without parts counterman use Diabetes mellitus complication status: with neurologic complications Diabetes mellitus complication detail: with unspecified neuropathy Neuropathy G62.9 Mixed hyperlipidemia E78.2 Essential hypertension I10 Mild intermittent asthma without complication J45.20 Asthma severity: mild Asthma persistence: intermittent Asthma complication type: uncomplicated Iron deficiency anemia secondary to inadequate dietary iron intake D50.8 Iron deficiency anemia type: inadequate dietary iron intake Degeneration of intervertebral disc of lumbar region with discogenic back pain M51.360 Disc-related pain type: discogenic back pain only Cervical spondylosis with radiculopathy M47.22 Rheumatoid arthritis with positive rheumatoid factor, involving unspecified site M05.9 Rheumatoid arthritis location: unspecified site Rheumatoid factor presence: with rheumatoid factor Vitamin B12 deficiency E53.8 Vitamin D deficiency E55.9 Gastroesophageal reflux disease without esophagitis K21.9 Esophagitis presence: without esophagitis Venous insufficiency of both lower extremities I87.2 Bilateral renal stones N20.0 Primary insomnia F51.01 Insomnia type: primary Anxiety F41.9 Obesity (BMI 30-39.9) E66.9 Additional Codes PHQ-9 - 71978 - PHQ-9 Billing: Yes ([id number]) Assessment & Plan Assessment & Plan (1) Diabetes mellitus: Code(s): E11.9 - Type 2 diabetes mellitus without complications Category: Medical Qualifiers: Diabetes mellitus type: type 2 Diabetes mellitus parts counterman insulin use: without snf use Diabetes mellitus complication status: with neurologic complications Diabetes mellitus complication detail: with unspecified neuropathy Qualified Code(s): E11.40 - Type 2 diabetes mellitus with diabetic neuropathy, unspecified Plan: Her HgbA1c was at 6.3% on her labs done last month (in-office HgbA1c was previously at 7.4% a few months ago) - goal is at least < 7.0% Reinforced diabetic diet Continue Metformin 1000 mg BID (2) Neuropathy: Comment: Repeat NCV and EMG done in November 2017 revealed findings consistent with neuropathy Code(s): G62.9 - Polyneuropathy, unspecified Category: Medical Plan: Continue Duloxetine 30 mg BID, Pregabalin 150 mg TID and Oxycodone 30 mg Q 12 hours although patient states that her Rx have not been helping her lately in terms of her burning pains in both of her feet Have discussed again with patient that aside from what she is on at this time (Duloxetine, Pregabalin/Gabapentin), there are really no effective Rx available for neuropathic pain Have advised her to try reaching out to [facility] to schedule a follow up appt KATHI as interventional pain management at this time would be the only option left that can help her with her symptoms (3) Mixed hyperlipidemia: Code(s): E78.2 - Mixed hyperlipidemia Category: Medical Plan: Results of her labs done last month reviewed and discussed with patient - have advised her that her cholesterol levels appears to have improved significantly from her previous numbers in January 2023 Reinforced low cholesterol diet Continue Rosuvastatin 40 mg QD and Ezetimibe 10 mg QD Will recheck her labs and fasting lipids in 4 months for follow up (4) Essential hypertension: Code(s): I10 - Essential (primary) hypertension Category: Medical Plan: Reinforced low sodium diet - goal is systolic BP of at least 120 to 130 mm or less Continue Lisinopril 20 mg QD and Furosemide 20 mg QD (5) Asthma: Code(s): J45.909 - Unspecified asthma, uncomplicated Category: Medical Qualifiers: Asthma severity: mild Asthma persistence: intermittent Asthma complication type: uncomplicated Qualified Code(s): J45.20 - Mild intermittent asthma, uncomplicated Plan: Controlled - patient states that she uses her Albuterol HFA inhaler only as needed (6) Iron deficiency anemia, unspecified: Code(s): D50.9 - Iron deficiency anemia, unspecified Category: Medical Qualifiers: Iron deficiency anemia type: inadequate dietary iron intake Qualified Code(s): D50.8 - Other iron deficiency anemias Plan: Her H/H was normal on her most recent labs done last month Continue IV iron Tx as needed Follow up with hematology (Dr. Anthony) as scheduled She has been referred to GI for screening colonoscopy (recalls having one done at [facility] a few years ago but have been unable to locate [facility] - patient states that her procedure was aborted at the time as she started bleeding during the procedure) She was seen last year for precolonoscopy but anesthesia recommended cardiac clearance first She has since been cleared but has not yet been scheduled and this has yet to be done - she was referred back to GI for colonoscopy at her last visit but she is still waiting for this to be scheduled (7) Lumbar degenerative disc disease: Code(s): M51.369 - Other intervertebral disc degeneration, lumbar region without mention of lumbar back pain or lower extremity pain Category: Medical Qualifiers: Disc-related pain type: discogenic back pain only Qualified Code(s): M51.360 - Other intervertebral disc degeneration, lumbar region with discogenic back pain only Plan: She had a non-traumatic compression fracture of eleventh thoracic vertebra first seen on repeat lumbar spine x-rays done in late 2022 - this was most likely at least a partial source of her recent recurrent left mid to lower back pain and discomfort It was suspected that this may have resulted from her last ESWL a few months prior She reportedly had BMD done at Dr. Kennedy's office on 05/20/2021 and her left femur T-score at the time was at -1.8 - she was started on Alendronate [address] Kennedy to try to lower her fracture risk Repeat spine x-rays done last year showed some progression of her degenerative changes from previous Continue Oxycodone 30 mg BID PRN and Pregabalin 150 mg TID Follow up with [facility] as scheduled for continuing pain management although she states that pain management have not been helping much lately (8) Cervical spondylosis with radiculopathy: Code(s): M47.22 - Other spondylosis with radiculopathy, cervical region Category: Medical Plan: Continue Oxycodone 30 mg Q 12 hours PRN, Cyclobenzaprine 5 mg TID PRN and Lidocaine 5% ointment topically TID PRN MRI of the cervical spine previously requested for was denied by insurance (9) Rheumatoid arthritis: Comment: Is on Prednisone 5 mg-20 mg daily, Methotrexate tablets 2.5 mg 6 tablets once a day on Sundays. Rinvoq ER 15 mg qd has been discontinued. Code(s): M06.9 - Rheumatoid arthritis, unspecified Category: Medical Qualifiers: Rheumatoid arthritis location: unspecified site Rheumatoid factor presence: with rheumatoid factor Qualified Code(s): M05.9 - Rheumatoid arthritis with rheumatoid factor, unspecified Plan: Continue Prednisone 2.5 mg QD as needed for flare ups She was most recently on Methotrexate injection (Rasuvo) 20 mg once a week but this was also discontinued due to side effects (rash) Patient so far has failed multiple treatments for RA - was unable to tolerate Rinvoq (diarrhea) and had poor or no clinical response to Xeljanz, Olumiant, Cimzia and Rituximab; she has also failed anti-TNF therapies, as well as Actemra, Orencia and multiple other DMARDs including Azathioprine Follow up with rheumatology (Dr. Kennedy) as scheduled (10) Vitamin B12 deficiency: Code(s): E53.8 - Deficiency of other specified B group vitamins Category: Medical Plan: Continue oral Vitamin B12 1000 mcg QD and B12 injection monthly (11) Vitamin D deficiency: Code(s): E55.9 - Vitamin D deficiency, unspecified Category: Medical Plan: Continue OTC Vitamin D supplements as well as her weekly 25833 units of Vitamin D2 (12) GERD (gastroesophageal reflux disease): Comment: continue ppi- avoid culprits EGD- Code(s): K21.9 - Gastro-esophageal reflux disease without esophagitis Category: Medical Qualifiers: Esophagitis presence: without esophagitis Qualified Code(s): K21.9 - Gastro-esophageal reflux disease without esophagitis Plan: Dietary restrictions reinforced Continue Omeprazole 20 mg QD PRN (13) Venous insufficiency of both lower extremities: Code(s): I87.2 - Venous insufficiency (chronic) (peripheral) Category: Medical Plan: Follow up with vascular surgery as scheduled She has been advised to just continue with conservative treatments for now due to her multiple comorbidities (14) Bilateral renal stones: Comment: Left ESWL 12/17 Code(s): N20.0 - Calculus of kidney Category: Medical Plan: S/P repeat ESWL last year but states that she is still experiencing recurrent pain and discomfort, and more recently, pain over her left lower throacic and lumbar area Follow up with urology as scheduled (15) Insomnia: Code(s): G47.00 - Insomnia, unspecified Category: Medical Qualifiers: Insomnia type: primary Qualified Code(s): F51.01 - Primary insomnia Plan: Sleep hygiene reinforced Continue Zolpidem 10 mg Q HS PRN (16) Anxiety: Code(s): F41.9 - Anxiety disorder, unspecified Category: Medical Plan: States that her anxiety has been controlled lately - used to take Fluoxetine but she has not been on this in a while now (17) Obesity (BMI 30-39.9): Code(s): E66.9 - Obesity, unspecified Category: Medical Plan: Reinforced diet; exercise and weight loss are unrealistic at present due to her increasing low back pain and lumbar radicular pain and other multiple comorbidities Plan Follow up in 4 months Orders: Orders Complete Blood Count Auto Diff 4 Months D64.9 - Anemia, unspecified Comprehensive [place]. Panel Fast 4 Months E78.00 - Pure hypercholesterolemia, unspecified Lipid Panel 4 Months E78.00 - Pure hypercholesterolemia, unspecified Microalbumin, Random (w Creat) 4 Months E11.9 - Type 2 diabetes mellitus without complications TSH reflex Free T4 4 Months E78.00 - Pure hypercholesterolemia, unspecified UA CC w/rflx Micro + Cult 4 Months R30.0 - Dysuria Vitamin D 25-OH Total 4 Months E55.9 - Vitamin D deficiency, unspecified Hemoglobin A1c 4 Months E11.9 - Type 2 diabetes mellitus without complications
--- OUTSIDE RECORDS SUMMARY | 2024-06-02 09:11 | XMS_ITS | Clinical Summary ---
Author Organization [facility] Address [address] [place] [address] Phone Care Team Providers Care Acid Tank Cleaner Name Role Phone Michael Vogel MD Primary Care Provider [phone] Allergies Active Allergy Reactions Criticality Noted Date [...] 4 WEEKS 3 Active ergocalciferol 1.25 MG (35863 UT) capsule TAKE 1 CAPSULE BYMOUTH ONCE [...] Colorectal Cancer Screening: Sigmoidoscopy 01/15/2009 Influenza Vaccine (Season Ended) 2024 01/10/20 Hepatitis B Vaccine Aged Out No longe r eligible based on patient's age to complete this topic Insurance Care Teams Acid Tank Cleaner Relationship Specialty Start Date End Date Michael Vogel MD [address] [place] [address] PCP - General Internal Medicine 05/03/22
== END 2024-06-02 09:56 | disposition home or self-care (01) ==
LOC: HO.HMCH 08:37
PROVIDERS: PCP Internal Medicine; Visit Provider Internal Medicine
DX: E11.40 Type 2 diabetes mellitus with diabetic neuropathy, unspecified (principal); G62.9 Polyneuropathy, unspecified; E78.2 Mixed hyperlipidemia; I10 Essential (primary) hypertension; J45.20 Mild intermittent asthma, uncomplicated; D50.8 Other iron deficiency anemias; M51.360 Other intervertebral disc degeneration, lumbar region with discogenic back pain only; M47.22 Other spondylosis with radiculopathy, cervical region; M05.9 Rheumatoid arthritis with rheumatoid factor, unspecified; E53.8 Deficiency of other specified B group vitamins; E55.9 Vitamin D deficiency, unspecified; K21.9 Gastro-esophageal reflux disease without esophagitis; I87.2 Venous insufficiency (chronic) (peripheral); N20.0 Calculus of kidney; F51.01 Primary insomnia; F41.9 Anxiety disorder, unspecified; E66.9 Obesity, unspecified

== ENCOUNTER → 2024-06-02 08:37 | Outpatient (BNVA) | payer OTHER, SELFPAY | PROVIDERS: PCP Internal Medicine; Visit Provider Internal Medicine | DX: E11.40 Type 2 diabetes mellitus with diabetic neuropathy, unspecified (principal); G62.9 Polyneuropathy, unspecified; E78.2 Mixed hyperlipidemia; I10 Essential (primary) hypertension; J45.20 Mild intermittent asthma, uncomplicated; D50.8 Other iron deficiency anemias; M51.360 Other intervertebral disc degeneration, lumbar region with discogenic back pain only; M47.22 Other spondylosis with radiculopathy, cervical region; M05.9 Rheumatoid arthritis with rheumatoid factor, unspecified; E53.8 Deficiency of other specified B group vitamins; E55.9 Vitamin D deficiency, unspecified; K21.9 Gastro-esophageal reflux disease without esophagitis; I87.2 Venous insufficiency (chronic) (peripheral); N20.0 Calculus of kidney; F51.01 Primary insomnia; F41.9 Anxiety disorder, unspecified; E66.9 Obesity, unspecified; Z79.52 Long term (current) use of systemic steroids; Z68.33 Body mass index [BMI] 33.0-33.9, adult | CPT/HCPCS: 96127; 99212 ==

== ENCOUNTER 2024-06-06 07:39 | Outpatient (REF) | payer OTHER, SELFPAY ==
--- OUTSIDE RECORDS SUMMARY | 2024-06-06 07:41 | XMS_ITS | Clinical Summary ---
Author Organization [facility] Address [address] [facility] [address] [place] [address] Phone Care Team Providers Care Director Consumer Name Role Phone Michael Vogel MD Primary Care Provider [phone]- [phone] Allergies Active Allergy Reactions Criticality Noted Date [...] 4 WEEKS 3 Active ergocalciferol 1.25 MG (61146 UT) capsule TAKE 1 CAPSULE BYMOUTH ONCE [...] Comments Breast Cancer Screening 1960 Pneumococcal Vaccine: Peds ( 0 to 5 Years) and At-Risk Patients (6 to 49 Years) (1 of 2 - PCV) 01/15/1966 Colorectal Cancer Screening: Annual FOBT 01/15/2009 Colorectal Cancer Screening: Colonoscopy 01/15/2009 Colorectal Cancer Screening: Sigmoidoscopy 01/15/2009 Influenza Vaccine (Season Ended) 2024 01/10/20 Hepatitis B Vaccine Aged Out No longe r eligible based on patient's age to complete this topic Insurance Care Teams Director Consumer Relationship Specialty Start Date End Date Michael Vogle MD [address] [place] [address] PCP - General Internal Medicine 05/03/22
== END 2024-06-06 07:40 | disposition home or self-care (01) ==
LOC: HO.MAMMO 07:39
PROVIDERS: PCP Internal Medicine; Visit Provider Internal Medicine
DX: Z12.31 Encounter for screening mammogram for malignant neoplasm of breast (principal)
CPT/HCPCS: 77063; 77067

== ENCOUNTER → 2024-06-06 08:00 | Outpatient (BNV) | payer OTHER, SELFPAY | PROVIDERS: PCP Internal Medicine; Visit Provider Internal Medicine | DX: Z12.31 Encounter for screening mammogram for malignant neoplasm of breast (principal) | CPT/HCPCS: 77063; 77067 ==

== ENCOUNTER → 2024-08-01 05:21 | Outpatient (BNV) | payer OTHER, SELFPAY | PROVIDERS: Emergency Provider Emergency Medicine; PCP Internal Medicine; Visit Provider Radiology Diagnostic Radiology | DX: I25.84 Coronary atherosclerosis due to calcified coronary lesion (principal) | CPT/HCPCS: 73590 ==

== ENCOUNTER 2024-08-01 05:59 | Emergency (ER) | payer OTHER, SELFPAY ==
--- NOTE | ~2024-08-01 | XR_ITS ---
CLINICAL HISTORY: pain 2 view right tibia-fibula Comparison: None Findings Patient is status post hindfoot fusion with 2 surgical screws present No joint effusion. No significant arthritic change. No radiopaque foreign body. The patient is status post right total knee replacement. Vascular calcifications are noted. IMPRESSION: 1. No acute process. Postoperative changes. Vascular calcifications. This document has been electronically signed by: Azael Vargas MD on 08/01/2024 06:55:55
[2024-08-01 06:03] VITALS: BP 150/86; PULSE 120; RESP 20; TEMP 35.8; O2SAT 95; BMI 33.3
[2024-08-01 06:17] VITALS: BP 141/100; PULSE 98; RESP 19; TEMP 36.7; O2SAT 97
--- OUTSIDE RECORDS SUMMARY | 2024-08-01 06:20 | XMS_ITS | Clinical Summary ---
Author Organization [facility] Address [address] [place] [address] Phone Care Team Providers Care Master Baker Name Role Phone Michael Vogel MD Primary Care Provider [phone] Allergies Active Allergy Reactions Criticality Noted Date [...] 4 WEEKS 3 Active ergocalciferol 1.25 MG (79982 UT) capsule TAKE 1 CAPSULE BYMOUTH ONCE [...] Comments Breast Cancer Screening 1960 Pneumococcal Vaccine: 50+ Ye ars (1 of 2 - PCV) 01/15/1979 Colorectal Cancer Screening: Annual FOBT 01/15/2009 Colorectal Cancer Screening: Colonoscopy 01/15/2009 Colorectal Cancer Screening: Sigmoidoscopy 01/15/2009 Influenza Vaccine (Season Ended) 2024 01/10/20 17 Hepatitis B Vaccine Aged Out No longe r eligible based on patient's age to complete this topic Insurance Care Teams Master Baker Relationship Specialty Start Date End Date Michael Vogel MD [address] [place] [address] PCP - General Internal Medicine 05/03/22
--- NOTE | 2024-08-01 06:41 | ED.LOWEXIN ---
HPI - Extremity Injury (Lower) General Chief Complaint: Extremity Injury, Lower Stated Complaint: right foot pain Time Seen by Provider: 08/01/24 06:23 Source: patient Mode of arrival: ambulatory Limitations: no limitations History of Present Illness ED Provider: Dr. Doris Ponce HPI Narrative: Patient comes to the emergency room complaining of right-sided plantar foot pain. Patient states that she has not had any injury. Patient has previously diagnosed with neuropathy, takes Lyrica and gabapentin with no relief. Patient states that she has an appointment pending with vascular surgery as well. Related Data Home Medications ?Medication ?Instructions ?Recorded ?Confirmed alendronate 70 mg tablet 70 mg PO QWEEK 11/17/20 06/02/24 prednisone 2.5 mg tablet 2.5 mg PO DAILY 06/02/24 06/02/24 Previous Rx's ?Medication ?Instructions ?Recorded ergocalciferol (vitamin D2) 1,250 1,250 mcg PO QWEEK #12 caps 03/24/22 mcg (50,000 unit) capsule albuterol sulfate 2.5 mg/3 mL 2.5 mg (3 mL) inhalation Q4-6H PRN 11/23/22 (0.083 %) solution for nebulization Wheezing #75 mL Nystop 100,000 unit/gram topical 1 appl topical TID #60 grams 04/15/23 powder (nystatin) omeprazole 20 mg capsule,delayed 20 mg PO DAILY 90 days #90 caps 05/21/23 release nystatin 100,000 unit/mL oral 10 ml buccal TID 10 days #300 mL 05/28/23 suspension cyanocobalamin (vitamin B-12) 1,000 mcg IM Q4W #3 mL 07/25/23 1,000 mcg/mL injection solution sucralfate 100 mg/mL oral 10 ml PO BID 30 days #600 mL 11/04/23 suspension (Carafate) Ventolin HFA 90 mcg/actuation 2 puff inhalation Q6H PRN 01/08/24 aerosol inhaler (albuterol sulfate) bronchospasm #18 grams duloxetine 30 mg capsule,delayed 30 mg PO BID 30 days #60 caps 01/23/24 release nebulizer accessories #1 ea 02/22/24 nebulizers #1 ea 02/22/24 albuterol sulfate 2.5 mg/3 mL 2.5 mg (3 mL) continuous 03/11/24 (0.083 %) solution for nebulization nebulization QID PRN shortness of breath or wheezing 30 days #180 mL rosuvastatin 40 mg tablet (Crestor) 40 mg PO DAILY 90 days #90 tabs 04/12/24 ondansetron 4 mg disintegrating 4 mg PO Q8H PRN nausea and 04/29/24 tablet vomiting #30 tabs blood sugar diagnostic (FreeStyle 1 strip miscellaneous TID #100 05/15/24 Test strips) strips pregabalin 150 mg capsule 150 mg PO TID 30 days #90 caps 05/16/24 lisinopril 20 mg tablet 20 mg PO DAILY #90 tabs 06/12/24 potassium chloride 10 mEq 10 meq PO DAILY 30 days #30 tabs 06/12/24 tablet,extended release (Klor-Con) oxycodone 30 mg tablet 30 mg PO Q12H pain 28 days #56 tabs 06/16/24 metformin 1,000 mg tablet 1,000 mg PO BID #180 tabs 06/20/24 furosemide 20 mg tablet 20 mg PO QAM PRN edema 30 days #30 06/30/24 tabs zolpidem 10 mg tablet 10 mg PO BEDTIME PRN insomnia 30 06/30/24 days #30 tabs lancets 28 gauge (FreeStyle #100 ea 07/01/24 Lancets) tramadol 50 mg tablet 50 mg PO BID PRN pain #7 tabs 08/01/24 Allergies Allergy/AdvReac Type Severity Reaction Status Date / Time No Known Allergies Allergy Verified 08/01/24 06:07 Review of Systems Review of Systems: Constitutional : No Weight loss, No Fever, No Chills, No Night Sweats, No Fatigue, No Malaise ENT/Mouth : No Hearing loss, No Ear Pain, No Nasal Congestion, No Sinus Pain, No Hoarseness, No sore throat, No Rhinorrhea, No Swallowing Difficulty Eyes: No Eye Pain, No Swelling, No Redness, No Foreign Body, No Discharge, No Vision Changes Cardiovascular : No Chest Pain, No SOB, No Dyspnea on Exertion, No Orthopnea, No Edema, No Palpitations Respiratory : No Cough, No Sputum, No Wheezing, No Smoke Exposure, No Dyspnea Gastrointestinal : No Nausea, No Vomiting, No Diarrhea, No Constipation, No abdominal Pain, No Hematochezia, No Melena Genitourinary : no irregular bleeding, No Dysuria, No Urinary Frequency, No Hematuria, No Urinary Incontinence, No Urgency, No Flank Pain, No Urinary Flow Changes, No Hesitancy Musculoskeletal : Complaining of plantar foot pain, No joint pain, No Myalgias, No Joint Swelling Skin : No Skin Lesions, No rash Neuro : No Weakness, No Numbness, No Paresthesias, No Loss of Consciousness, No Dizziness, No Headache Psych : No Anxiety/Panic, No Depression, No SI/HI/AH/VH, No Social Issues, Heme/Lymph: No Bruising, No Bleeding,No Lymphadenopathy Endocrine : No Polyuria, No Polydipsia, No Temperature Intolerance [facility] Past Medical History Medical History Lumbar degenerative disc disease Mixed hyperlipidemia Venous insufficiency of both lower extremities Abnormal bruising Obesity (BMI 30-39.9) Anxiety Insomnia GERD (gastroesophageal reflux disease) Vitamin D deficiency Ureterolithiasis Neuropathy Varicose veins of bilateral lower extremities with pain Rheumatoid arthritis Cervical spondylosis with radiculopathy Asthma Iron deficiency anemia, unspecified Vitamin B12 deficiency Hyperlipidemia Hypertension, essential, benign Diabetes mellitus Surgical History Hx of lithotripsy History of surgery on left wrist History of surgery on right wrist History of arthroplasty of left ankle History of arthroplasty of right ankle S/P VANESSA-BSO (total abdominal hysterectomy and bilateral salpingo-oophorectomy) History of arthroplasty of right knee (~2008) Family History Family History Father Chronic mental illness Mother Diabetes Hypertension Stroke Sister Heart disease Diabetes Social History Social History Household Members: Family Housing: Apartment Alcohol intake: never Patient Tobacco Use Status: Former Tobacco user Years Smoked: quit 6 years ago Smoked in Last 30 Days: No e-Cigarette/Vaping Use: Never Used Second Hand Smoke Exposure: No Use of substances other than those prescribed or required for medical reasons: Yes Substance Use Type: Prescription Drugs Advance Directives: No Advance Directives Information Provided: Yes Do you have a plan to hurt others: No Plan Patient : No service: No Current occupational status: disabled Cognitive needs: No (cane) Hearing needs: No Vision needs: Yes (glasses) Physical Exam Vital Signs: Vital Signs: Last Vital Signs Temp 98.0 F 08/01/24 06:17 Pulse 98 08/01/24 06:17 Resp 19 08/01/24 06:17 BP 141/100 H 08/01/24 06:17 Pulse Ox 97 08/01/24 06:17 O2 Del Method Room Air 08/01/24 06:17 BMI result Body Mass Index 33.3 Const: Other: Appearance: Alert. Oriented X3. No acute distress. Eyes: Pupils equal, round and reactive to light. ENT: Pharynx normal. Neck: Normal inspection. Neck supple. No lymph nodes noted. No crepitus CVS: Normal heart rate and rhythm. Pulses normal. Normal S1 and S2 Respiratory: No respiratory distress. Breath sounds normal. No Wheezing. No rales Abdomen: Soft and nontender. No rigidity. No distention. Skin: Skin warm and dry. Normal skin color. Normal skin turgor. Extremities: No lower extremity edema. No Lacerations. No Rash the foot is not swollen, no ankle swelling, no calf pain. Patient able to wiggle all toes. Patient states that she feels something sharp at the base of the Great toe. A bit of numbness tingling worse than usual. Neuro: Oriented X 3. No motor deficit. No sensory deficit. Moving all extremities. No slurred speech. CN 2 through 12 grossly intact Psych: calm, cooperative, normal affect Course Course Course Narrative: Patient complaining of acute on chronic numbness tingling at the base of the foot on the right side. No trauma Medical Decision Making Medical Decision Making MDM Narrative: patient's physical exam of the foot looks normal. Patient states that she feels that her neuropathy is getting worse despite being on The highest dose of Lyrica also, patient has an appointment pending for vascular surgery. Patient's leg does not seem to be swollen at all, no pain to palpation on the calf or in the dorsum of the foot. Patient likely has worsening neuropathy. Patient was given p.o. tramadol. I discussed with the patient the potential of addiction with this medication. Patient agreeable to avoid taking it. An x-ray of tibia fibula was ordered from triage, there are 2 pins in the ankle, they seem to be in good position. The knee hardware looks in place. Discharge Plan Discharge Clinical Impression: Neuropathy Patient Disposition: Home, Self-Care Instructions: Peripheral Neuropathy (ED) Additional Instructions: Please follow-up with your primary care physician tomorrow. If you have any worsening or new symptoms, please return to the emergency room or call 911 Prescriptions: New tramadol 50 mg tablet 50 mg PO BID PRN (Reason: pain) Qty: 7 0RF No Action ergocalciferol (vitamin D2) 1,250 mcg (50,000 unit) capsule 1,250 mcg PO QWEEK Qty: 12 5RF albuterol sulfate 2.5 mg /3 mL (0.083 %) solution for nebulization 2.5 mg inhalation Q4-6H PRN (Reason: Wheezing) Qty: 75 3RF nystatin [Nystop] 100,000 unit/gram powder 1 appl topical TID Qty: 60 1RF omeprazole 20 mg capsule,delayed release(DR/EC) 20 mg PO DAILY 90 Days Qty: 90 1RF nystatin 100,000 unit/mL suspension 10 ml buccal TID 10 Days Qty: 300 0RF Rx Instructions: swish 1/2 of dose in each side of the mouth for up to 5 minutes, then spit out the medicine cyanocobalamin (vitamin B-12) 1,000 mcg/mL solution 1,000 mcg IM Q4W Qty: 3 2RF sucralfate [Carafate] 100 mg/mL suspension 10 ml PO BID 30 Days Qty: 600 0RF albuterol sulfate [Ventolin HFA] 90 mcg/actuation HFA aerosol inhaler 2 puff inhalation Q6H PRN (Reason: bronchospasm) Qty: 18 5RF (DME) nebulizers [facility] See Rx Instructions .Route Qty: 1 0RF Rx Instructions: As directed (DME) nebulizer accessories Kit See Rx Instructions .Route Qty: 1 0RF Rx Instructions: As directed albuterol sulfate 2.5 mg /3 mL (0.083 %) solution for nebulization 2.5 mg continuous nebulization QID PRN (Reason: shortness of breath or wheezing) 30 Days Qty: 180 3RF rosuvastatin [Crestor] 40 mg tablet 40 mg PO DAILY 90 Days Qty: 90 3RF ondansetron 4 mg tablet,disintegrating 4 mg PO Q8H PRN (Reason: nausea and vomiting) Qty: 30 0RF FreeStyle Test Strip 1 strip miscellaneous TID Qty: 100 3RF pregabalin 150 mg capsule 150 mg PO TID 30 Days Qty: 90 0RF lisinopril 20 mg tablet 20 mg PO DAILY Qty: 90 3RF potassium chloride [Klor-Con 10] 10 mEq tablet extended release 10 meq PO DAILY 30 Days Qty: 30 2RF Rx Instructions: Take Rx together with Furosemide in the morning oxycodone 30 mg tablet 30 mg PO Q12H 28 Days Qty: 56 0RF metformin 1,000 mg tablet 1,000 mg PO BID Qty: 180 0RF furosemide 20 mg tablet 20 mg PO QAM PRN (Reason: edema) 30 Days Qty: 30 1RF Rx Instructions: Take in AM only as needed zolpidem 10 mg tablet 10 mg PO BEDTIME PRN (Reason: insomnia) 30 Days Qty: 30 1RF (DME) lancets [FreeStyle Lancets] 28 gauge misc See Rx Instructions .Route Qty: 100 0RF Rx Instructions: As directed three times per day alendronate 70 mg tablet 70 mg PO QWEEK duloxetine 30 mg capsule,delayed release(DR/EC) 30 mg PO BID 30 Days Qty: 60 3RF prednisone 2.5 mg tablet 2.5 mg PO DAILY Print Language: Italian
[2024-08-01] MEDS: traMADoL HCL 50 MG TABLET PO (06:44)
[2024-08-01 06:58] VITALS: BP 141/100; PULSE 98; RESP 19; TEMP 36.7; O2SAT 97
== END 2024-08-01 07:00 | disposition home or self-care (01) ==
PROVIDERS: Emergency Provider Emergency Medicine; PCP Internal Medicine
DX: G62.9 Polyneuropathy, unspecified (principal); M79.671 Pain in right foot; Z79.899 Other long term (current) drug therapy; Z87.891 Personal history of nicotine dependence
CPT/HCPCS: 73590; 99283; 99284

== ENCOUNTER 2024-09-30 12:15 | Emergency (ER) | payer OTHER, SELFPAY ==
[2024-09-30] VITALS (7 sets, daily range): BP systolic 153–233; BP diastolic 76–105; PULSE 83–118; RESP 16–18; TEMP 36.4–36.9; O2SAT 98–100; BMI 33.5; BMI 30.6
--- NOTE | ~2024-09-30 | XR_ITS ---
EXAMINATION: XR FOOT, RIGHT CLINICAL INFORMATION: pain, wound, redness COMPARISON: August 17, 2023 TECHNIQUE: AP, lateral, and oblique views of the right foot. FINDINGS: There is diffuse osteopenia. There is moderate vascular calcifications. There are 2 screws placed across the talonavicular joint with mature arthrodesis. Hardware is intact. Dorsal marginal osteophytes are present involving the dorsal navicular cuneiform joint. Multifocal chronic calcifications are present in the plantar midfoot soft tissues. XR/XR foot RT min 3V IMPRESSION: No gross skin ulceration is evident on x-ray. Stable degenerative changes in the midfoot, osteophytes. Stable talonavicular arthrodesis. Moderate vascular calcifications. Electronically signed by: Noah Lora MD 09/30/2024 12:59 PM EDT
--- NOTE | ~2024-09-30 | CT_ITS ---
CLINICAL HISTORY: Rt ft pain; pallor; cold; r o vasc occ CT angiogram abdominal aorta with iliofemoral runoff with contrast Multiplanar reconstructions and 3D processing Comparison: 09/19/2023 Findings: Abdominal aorta normal caliber without dissection. Celiac and mesenteric origins patent without stenosis. Moderate bilateral renal artery origin stenosis. Common and external iliac arteries unremarkable. Bilateral internal iliac arteries are occluded. Bilateral LEASE ATTENDANT and PFA patent without stenosis. Multifocal mild and moderate bilateral SFA stenosis. Very small caliber bilateral popliteal arteries. Right popliteal artery is obscured by knee prosthesis. No focal occlusion is identified. Severe stenosis bilateral trifurcation vessel origins. Diffuse disease throughout bilateral runoff vessels. Dense calcified plaque obscures the lumen bilaterally. Assessment is not possible. Subcutaneous edema noted bilateral feet. Surgical repair hardware noted within bony structures. Degenerative changes are also noted. Lung bases are clear. No acute bony abnormalities. Degenerative change throughout visualized spine. Degenerative change bilateral hips and left knee. Right knee prosthesis noted. Liver and spleen within normal limits. Pancreas and adrenal glands unremarkable. Gallbladder is within normal limits. No significant focal renal abnormalities. No renal stones or hydronephrosis. No free fluid or adenopathy in the pelvis. No diverticulitis. Appendix not identified. Hysterectomy. No adnexal abnormality. Impression: Multifocal SFA and bilateral runoff vessel disease Runoff vessels not well assessed due to dense calcified plaque This document has been electronically signed by: Jagdeep Kerr MD on 09/30/2024 20:17:47
--- NOTE | 2024-09-30 12:27 | ED_ITS ---
HPI - Extremity Problem General Chief complaint: Extremity Injury, Lower Stated complaint: Circulation issues R foot Time Seen by Provider: 09/30/24 18:02 Source: patient and family Mode of arrival: ambulatory Limitations: no limitations History of Present Illness ED Provider: Larry BARBER HPI Narrative: The patient is a 64-year-old female with history of diabetes managed by metformin, diabetic neuropathy, vascular insufficiency, hypertension, atherosclerotic cardiovascular disease, PID, anxiety, hyperlipidemia, and asthma, presenting to the ED for evaluation of worsening right foot pain. Patient reports pain began approximately 1-2 months ago, at which time she was seen by her engineering designer and diagnosed with gout, however patient reports she had no significant relief from indomethacin and when following up with her PCP PCP discontinued the indomethacin. The patient denies associated fever/chills, nausea, vomiting or other systemic complaint. The patient denies any recent travel or calf tenderness. Patient reports pain increases with elevating her leg and decreases with hanging the foot off the bed. Patient reports approximately 2 weeks ago she developed a 2 cm diameter, circular, well- circumscribed lesion over the distal aspect of her right 1st metatarsal. Patient reports associated increasing pain, worsening painful range of motion, and tenderness to light or deep palpation. Patient also noted 1st and 2nd toe were cold to touch compared to the rest of the foot and the contralateral foot. The patient reports she also recently noted some ulceration with serosanguineous drainage from the lateral aspect of the distal phalanx of the right great toe, denies any purulent drainage. The patient reports she has scheduled an appointment with the vascular surgeon however is unable to get an appointment until November or December. Related Data Home Medications ?Medication ?Instructions ?Recorded ?Confirmed alendronate 70 mg tablet 70 mg PO QWEEK 11/17/20 04/09/19 prednisone 2.5 mg tablet 2.5 mg PO DAILY 06/02/2409/19 Previous Rx's ?Medication ?Instructions ?Recorded ergocalciferol (vitamin D2) 1,250 1,250 mcg PO QWEEK # 12 caps 03/24/22 mcg (50,000 unit) capsule albuterol sulfate 2.5 mg/3 mL 2.5 mg (3 mL) inhalation Q4-6H PRN 11/23/22 (0.083 %) solution for nebulization Wheezing #75 mL Nystop 100,000 unit/gram topical 1 appl topical TID #6 0 grams 04/15/23 powder (nystatin) nystatin 100,000 unit/mL oral 10 ml buccal TID 10 days #300 mL 05/28/23 suspension cyanocobalamin (vitamin B-12) 1,000 mcg IM Q4W #3 mL 0 07/25/23 1,000 mcg/mL injection solution sucralfate 100 mg/mL oral 10 ml PO BID 30 days #600 mL 11/04/23 suspension (Carafate) duloxetine 30 mg capsule,delayed 30 mg PO BID 30 days #60 caps 01/23/24 release nebulizer accessories #1 ea 02/22/24 nebulizers #1 ea 02/22/24 albuterol sulfate 2.5 mg/3 mL 2.5 mg (3 mL) continuous 03/11/24 (0.083 %) solution for nebulization nebulization QID P RN shortness of breath or wheezing 30 days #180 mL rosuvastatin 40 mg tablet (Crestor) 40 mg PO DAILY 90 days #90 tabs 04/12/24 ondansetron 4 mg disintegrating 4 mg PO Q8H PRN nausea and 04/29/24 tablet vomiting #30 tabs blood sugar diagnostic (FreeStyle 1 strip miscellaneou s TID #100 05/15/24 Test strips) strips pregabalin 150 mg capsule 150 mg PO TID 30 days #90 ca ps 05/16/24 lisinopril 20 mg tablet 20 mg PO DAILY #90 tabs 05/27 09/19 furosemide 20 mg tablet 20 mg PO QAM PRN edema 30 da ys #30 06/30/24 tabs lancets 28 gauge (FreeStyle #100 ea 07/01/24 Lancets) tramadol 50 mg tablet 50 mg PO BID PRN pain #7 tab s 08/01/24 Ventolin HFA 90 mcg/actuation 2 puff inhalation Q6H [place] N 08/21/24 aerosol inhaler (albuterol sulfate) bronchospasm #18 g miki zolpidem 10 mg tablet 10 mg PO BEDTIME PRN insomni a 30 09/01/24 days #30 tabs oxycodone 30 mg tablet 30 mg PO Q12H pain 28 days # 56 tabs 09/02/24 potassium chloride 10 mEq 10 meq PO DAILY 30 days #30 tabs 09/10/24 tablet,extended release (Klor-Con) omeprazole 20 mg capsule,delayed 20 mg PO DAILY 90 day s #90 caps 09/12/24 release metformin 1,000 mg tablet 1,000 mg PO BID #180 tabs Allergies Allergy/AdvReac Type Severity Reaction Status Date / Time No Known Allergies Allergy Verified 09/30/24 12:30 Review of Systems 2 Review of Systems: Yes all other systems are reviewed and are negative PMFSH Past Medical History Medical History Lumbar degenerative disc disease Mixed hyperlipidemia Venous insufficiency of both lower extremities Abnormal bruising Obesity (BMI 30-39.9) Anxiety Insomnia GERD (gastroesophageal reflux disease) Vitamin D deficiency Ureterolithiasis Neuropathy Varicose veins of bilateral lower extremities with pain Rheumatoid arthritis Cervical spondylosis with radiculopathy Asthma Iron deficiency anemia, unspecified Vitamin B12 deficiency Hyperlipidemia Hypertension, essential, benign Diabetes mellitus Surgical History Hx of lithotripsy History of surgery on left wrist History of surgery on right wrist History of arthroplasty of left ankle History of arthroplasty of right ankle S/P VANESSA-BSO (total abdominal hysterectomy and bilateral salpingo-oophorectomy) History of arthroplasty of right knee (~2008) Family History Family History Father Chronic mental illness Mother Diabetes Hypertension Stroke Sister Heart disease Diabetes Social History Social History Household Members: Family Housing: Apartment Alcohol intake: never Patient Tobacco Use Status: Former Tobacco user Years Smoked: quit 6 years ago e-Cigarette/Vaping Use: Never Used Second Hand Smoke Exposure: No Substance Use Type: Prescription Drugs Advance Directives: No Advance Directives Information Provided: No service: No Current occupational status: disabled Cognitive needs: No (cane) Hearing needs: No Vision needs: Yes (glasses) Physical Exam 2 Exam: Exam: CONSTITUTIONAL: The patient appears non-toxic, well nourished and in no acute distress. Vital signs as documented. HEAD: Atraumatic, normocephalic. EYES: EOMs grossly intact, pupils equal, conjunctiva clear, no exudate. ENT: Nares patent, no discharge. Airway patent, no audible stridor, visible mucosa is pink and moist without noted lesions. NECK: Trachea is midline, no obvious masses or gross abnormalities. CHEST: Symmetric movement, normal appearance. LUNGS: LS present and CTAB, no w/r/r. Non-labored work of breathing. CARDIAC: Regular Rhythm, S1/S2 appreciated, no murmurs, rubs or gallops. ABDOMEN: Abdomen soft and non-tender x4 quadrants, no palpable masses or organomegaly. : Deferred. EXTREMITIES: The right, distal, medial foot including the 1st and 2nd digits is noted to be cold to touch with associated pallor, delayed capillary refill, and pain out of proportion. There is a punctate ulceration noted to the lateral aspect of the distal phalanx of the right 1st digit with serosanguineous drainage, there is a 2 cm diameter circular, well-circumscribed lesion with skin color changes noted to the dorsum of the right foot overlying the 1st metatarsal. DP and PT pulses are nonpalpable, PT pulse is identified on Doppler, unable to Doppler DP pulse. Contralateral pulses are extremely faint and difficult to identify on Doppler. Moves all other extremities spontaneously without reported pain. Bilateral feet demonstrate multiple well-healed surgical incisions. No other obvious acute injury or deformity noted. NEURO: Alert and oriented x3, CN II-XII appear grossly intact. Cerebellar Functioning grossly intact. No obvious sensory or motor deficits. Speech clear and appropriate. PSYCH: normal affect, appropriate eye contact, fluid speech, with appropriate response to questioning. No reported suicidality or homicidality. SKIN: Warm, dry, color appropriate, normal turgor. No rashes noted. Vital Signs: Vital Signs: Last Vital Signs Temp 98.2 F 09/30/24 20:53 Pulse 99 09/30/24 20:53 Resp 16 09/30/24 20:53 BP 187/89 H 09/30/24 20:53 Pulse Ox 100 09/30/24 20:53 O2 Del Method Room Air 09/30/24 20:53 BMI result Body Mass Index 33.5 Course Course Course Narrative: This is a Rapid Medical Examination (RME) performed by Erik Schneider PA-C in triage. Full HPI, ROS, assessment and treatment plan per primary provider in the Main ED. 64 yo female with history of diabetes w/ neuropathy, anxiety, HTN, anemia, PAD, RA, HLD, asthma, varicose veins who presents to the ER for evaluation of worsening 4-5 weeks of right foot burning pain with 2 new blisters w/ oozing. has been to PCP, engineering designer and band maker. initially treated for gout but this was stopped by rheum 3 weeks ago. no fevers. foot is erythematous, swollen, warm, 2 small wounds at the medial nailbed of the great toe and over the MTP of the great toe. limited ROM due to pain. BP very elevated in triage. asymptomatic at this time. compliant w/ BP meds this morning. Plan: XR foot, labs Medications Administered Discontinued Medications Generic Name Dose Route Start Last Admin Trade Name Freq PRN Reason Stop Dose Admin Iohexol 100 ml 09/30/24 18:53 09/30/24 18:53 Iohexol 350 Mg/Ml 100 Ml Infus..Btl IV 09/30/24 18:54 100 ml ONCE ONE Administration Morphine Sulfate 4 mg 09/30/24 18:36 09/30/24 19:10 Morphine Sulfate 4 Mg/Ml Cartridge IVPUSH 09/30/24 18:37 4 mg ONCE ONE Administration Protocol Medical Decision Making Medical Decision Making MDM Narrative: 6:55 PM 09/30/2024 (Joselo BARBER): The patient is a 64-year-old female with history of vascular insufficiency of the lower extremities presenting to the ED for evaluation of worsening right foot pain now with coldness, pallor, pain out of proportion, and nonpalpable DP pulse. Laboratory evaluation shows mild leukocytosis at 10.9, elevated ESR, elevated CRP and minimally elevated uric acid, no other acute laboratory findings. Patient is afebrile. The patient's presentation is concerning for possible vascular occlusion. Patient will be treated with pain control and sent for CTA with runoff to evaluate for occlusion. 8:58 PM 09/30/2024 (Joselo BARBER): Patient's CTA shows multifocal SFA and bilateral runoff vessel disease, runoff vessels are not well assessed due to dense calcified plaque. The patient's presentation and CTA findings were discussed with Dr. Klein from Cardiology who is covering for vascular surgery, who recommends transfer to Tertiary Care for immediate management. [facility] was contacted and does not have any available beds, we will discuss alternative transfer options with the patient regarding preference for [facility] versus [facility]. 9:55 PM 09/30/2024 (Joselo BARBER): Patient elected to go to [facility], patient's case was discussed with transfer center and then Dr. Olivas from [facility] vascular surgery who accepted the patient and recommended heparin bolus and infusion, followed by ED to ED transfer. The patient will be transferred to [facility] ED under the care of accepting ED physician Dr. Yu. Images will be sent digitally and by disc. Admission/Observation Consideration of admission/observation: Escalation of care including admission/observation considered Lab Data MDM Lab Attestation statement: I reviewed the patient's lab results. 09/30/24 12:45 09/30/24 12:44 Labs: Lab Results 09/30/24 09/30/24 Range/Units 12:44 12:45 WBC 10.9 H (4.8-10.8) X10*3/uL RBC 3.70 L (4.20-5.50) X10*6/uL Hgb 10.6 L (12.0-16.0) g/dl Hct 32.6 L (37.0-47.0) % MCV 88.1 (80.0-98.0) fL MCH 28.6 (27.0-33.0) pg MCHC 32.5 (31.0-35.0) g/dl RDW 17.2 H (11.0-16.0) % Plt Count 257 (160-400) X10*3/uL MPV 10.4 (9.4-12.3) fL Immature Gran % (Auto) 0.9 H (0.0-0.4) % Neut % (Auto) 75.4 H (45-73) % Lymph % (Auto) 16.1 L (20-40) % [place] % (Auto) 4.3 (2-11) % Eos % (Auto) 2.7 (0-4) % Baso % (Auto) 0.6 (0-2) % Lymph # (Auto) 1.8 (1.2-4.9) X10*3/uL [place] # (Auto) 0.5 (0.1-1.2) X10*3/uL Eos # (Auto) 0.3 (0.0-0.4) X10*3/uL Baso # (Auto) 0.1 (0.0-0.2) X10*3/uL Abs Immat Gran (auto) 0.10 H (0.00-0.03) X10*3/uL Absolute Neuts (auto) 8.3 (2.0-8.3) x10*3/uL Absolute Nucleated RBC 0.000 (0.0-0.012) X10*3/uL Nucleated RBC % (auto) 0.0 (0.0-0.2) /100WBC ESR 37 H (0-20) MM/HR Sodium 145 (135-145) mmol/L Potassium 3.6 (3.3-5.1) mmol/L Chloride 110 H (96-108) mmol/L Carbon Dioxide 27 (22-29) mmol/L Anion Gap 12 (12-20) BUN 16 (9-16) mg/dL Creatinine 0.81 (0.5-1.4) mg/dL Estim Creat Clear Calc 75.5 Estimated GFR > 60 Random Glucose 165 H (60-115) mg/dL Uric Acid 5.9 H (2.4-5.7) mg/dL Calcium 8.7 (8.4-10.2) mg/dL Magnesium 1.6 (1.6-2.6) mg/dL Total Bilirubin 0.5 (0.0-1.0) mg/dL Direct Bilirubin 0.2 (0.0-0.5) mg/dL AST 16 (5-31) U/L ALT 9 (0-31) U/L Alkaline Phosphatase 66 (39-117) U/L C-Reactive Protein 3.51 H (< or = 0.50) mg/dL Total Protein 6.2 L (6.5-8.0) g/dL Albumin 3.5 (3.5-5.0) g/dL Independent Interpretation I performed an independent interpretation of an: EKG Interpretation: EKG shows sinus rhythm with a rate of 77, no evidence of acute ischemia, no ST elevation, no ectopy. QTC 432, compared to previous on 11/28/2023 there are no acute morphology changes. Radiology Impression Discussion of test interpretation with radiology: I have reviewed the radiologist's reading. Radiologist Impression: EXAMINATION: XR FOOT, RIGHT CLINICAL INFORMATION: pain, wound, redness COMPARISON: August 17, 2023 TECHNIQUE: AP, lateral, and oblique views of the right foot. FINDINGS: There is diffuse osteopenia. There is moderate vascular calcifications. There are 2 screws placed across the talonavicular joint with mature arthrodesis. Hardware is intact. Dorsal marginal osteophytes are present involving the dorsal navicular cuneiform joint. Multifocal chronic calcifications are present in the plantar midfoot soft tissues. XR/XR foot RT min 3V IMPRESSION: No gross skin ulceration is evident on x-ray. Stable degenerative changes in the midfoot, osteophytes. Stable talonavicular arthrodesis. Moderate vascular calcifications. Electronically signed by: Noah Lora MD 09/30/2024 12:59 PM EDT CLINICAL HISTORY: Rt ft pain; pallor; cold; r o vasc occ CT angiogram abdominal aorta with iliofemoral runoff with contrast Multiplanar reconstructions and 3D processing Comparison: 09/19/2023 Findings: Abdominal aorta normal caliber without dissection. Celiac and mesenteric origins patent without stenosis. Moderate bilateral renal artery origin stenosis. Common and external iliac arteries unremarkable. Bilateral internal iliac arteries are occluded. Bilateral SYSTEM VALIDATION ENGINEER and PFA patent without stenosis. Multifocal mild and moderate bilateral SFA stenosis. Very small caliber bilateral popliteal arteries. Right popliteal artery is obscured by knee prosthesis. No focal occlusion is identified. Severe stenosis bilateral trifurcation vessel origins. Diffuse disease throughout bilateral runoff vessels. Dense calcified plaque obscures the lumen bilaterally. Assessment is not possible. Subcutaneous edema noted bilateral feet. Surgical repair hardware noted within bony structures. Degenerative changes are also noted. Lung bases are clear. No acute bony abnormalities. Degenerative change throughout visualized spine. Degenerative change bilateral hips and left knee. Right knee prosthesis noted. Liver and spleen within normal limits. Pancreas and adrenal glands unremarkable. Gallbladder is within normal limits. No significant focal renal abnormalities. No renal stones or hydronephrosis. No free fluid or adenopathy in the pelvis. No diverticulitis. Appendix not identified. Hysterectomy. No adnexal abnormality. Impression: Multifocal SFA and bilateral runoff vessel disease Runoff vessels not well assessed due to dense calcified plaque This document has been electronically signed by: Jagdeep Kerr MD on 09/30/2024 20:17:47 Discharge Plan Discharge Clinical Impression: Vascular occlusion Patient Disposition: [facility] Transfer Details: [facility] ED - Dr. Yu Prescriptions: No Action ergocalciferol (vitamin D2) 1,250 mcg (50,000 unit) capsule 1,250 mcg PO QWEEK Qty: 12 5RF albuterol sulfate 2.5 mg /3 mL (0.083 %) solution for nebulization 2.5 mg inhalation Q4-6H PRN (Reason: Wheezing) Qty: 75 3RF nystatin [Nystop] 100,000 unit/gram powder 1 appl topical TID Qty: 60 1RF nystatin 100,000 unit/mL suspension 10 ml buccal TID 10 Days Qty: 300 0RF Rx Instructions: swish 1/2 of dose in each side of the mouth for up to 5 minutes, then spit out the medicine cyanocobalamin (vitamin B-12) 1,000 mcg/mL solution 1,000 mcg IM Q4W Qty: 3 2RF sucralfate [Carafate] 100 mg/mL suspension 10 ml PO BID 30 Days Qty: 600 0RF (DME) nebulizers [facility] See Rx Instructions .Route Qty: 1 0RF Rx Instructions: As directed (DME) nebulizer accessories Kit See Rx Instructions .Route Qty: 1 0RF Rx Instructions: As directed albuterol sulfate 2.5 mg /3 mL (0.083 %) solution for nebulization 2.5 mg continuous nebulization QID PRN (Reason: shortness of breath or wheezing) 30 Days Qty: 180 3RF rosuvastatin [Crestor] 40 mg tablet 40 mg PO DAILY 90 Days Qty: 90 3RF ondansetron 4 mg tablet,disintegrating 4 mg PO Q8H PRN (Reason: nausea and vomiting) Qty: 30 0RF FreeStyle Test Strip 1 strip miscellaneous TID Qty: 100 3RF pregabalin 150 mg capsule 150 mg PO TID 30 Days Qty: 90 0RF lisinopril 20 mg tablet 20 mg PO DAILY Qty: 90 3RF furosemide 20 mg tablet 20 mg PO QAM PRN (Reason: edema) 30 Days Qty: 30 1RF Rx Instructions: Take in AM only as needed (DME) lancets [FreeStyle Lancets] 28 gauge misc See Rx Instructions .Route Qty: 100 0RF Rx Instructions: As directed three times per day albuterol sulfate [Ventolin HFA] 90 mcg/actuation HFA aerosol inhaler 2 puff inhalation Q6H PRN (Reason: bronchospasm) Qty: 18 5RF zolpidem 10 mg tablet 10 mg PO BEDTIME PRN (Reason: insomnia) 30 Days Qty: 30 1RF oxycodone 30 mg tablet 30 mg PO Q12H 28 Days Qty: 56 0RF potassium chloride [Klor-Con 10] 10 mEq tablet extended release 10 meq PO DAILY 30 Days Qty: 30 2RF Rx Instructions: Take Rx together with Furosemide in the morning omeprazole 20 mg capsule,delayed release(DR/EC) 20 mg PO DAILY 90 Days Qty: 90 1RF metformin 1,000 mg tablet 1,000 mg PO BID Qty: 180 0RF tramadol 50 mg tablet 50 mg PO BID PRN (Reason: pain) Qty: 7 0RF alendronate 70 mg tablet 70 mg PO QWEEK duloxetine 30 mg capsule,delayed release(DR/EC) 30 mg PO BID 30 Days Qty: 60 3RF prednisone 2.5 mg tablet 2.5 mg PO DAILY Print Language: Spanish
--- NOTE | 2024-09-30 12:33 | ECG_ITS ---
Test Reason : HTN Blood Pressure : */* mmHG Vent. Rate : 77 BPM Atrial Rate : 77 BPM P-R Int : 122 ms QRS Dur : 76 ms QT Int : 382 ms P-R-T Axes : 15 4 23 degrees QTcB Int : 432 ms Normal sinus rhythm Normal ECG When compared with ECG of 28-Nov-2023 16:35, No significant change was found Referred By: Halley Schneider Electronically Signed By: HANS TOM
[2024-09-30 12:49] LABS: MANUAL DIFF FLAG NO
[2024-09-30 12:50] LABS: Hematocrit 32.6 % (37.0-47.0); Hemoglobin 10.6 g/dl (12.0-16.0); Imm Gran Abs Auto 0.10 X10*3/uL (0.00-0.03); Imm Gran Pct Auto 0.9 % (0.0-0.4); Lymphocytes Absolute Auto 1.8 X10*3/uL (1.2-4.9); Mean Corpuscular HGB Conc 32.5 g/dl (31.0-35.0); Mean Corpuscular Hemoglobin 28.6 pg (27.0-33.0); Mean Corpuscular Volume 88.1 fL (80.0-98.0); NRBC Abs Auto 0.000 X10*3/uL (0.0-0.012); NRBC Pct Auto 0.0 /100WBC (0.0-0.2); Platelet Count 257 X10*3/uL (160-400); Red Blood Count 3.70 X10*6/uL (4.20-5.50); White Blood Count 10.9 X10*3/uL (4.8-10.8)
[2024-09-30 13:04] LABS: Alanine Aminotransferase 9 U/L (0-31); Albumin Level 3.5 g/dL (3.5-5.0); Alkaline Phosphatase 66 U/L (39-117); Anion Gap 12 (12-20); Aspartate Amino Transferase 16 U/L (5-31); Blood Urea Nitrogen 16 mg/dL (9-16); Calcium 8.7 mg/dL (8.4-10.2); Carbon Dioxide 27 mmol/L (22-29); Chloride 110 mmol/L (96-108); Creatinine Clr Calc Pharmacy 75.5; Estimated Glomerular Filt Rate > 60; Magnesium 1.6 mg/dL (1.6-2.6); Potassium 3.6 mmol/L (3.3-5.1); Sodium 145 mmol/L (135-145); Total Protein 6.2 g/dL (6.5-8.0); Uric Acid 5.9 mg/dL (2.4-5.7)
--- OUTSIDE RECORDS SUMMARY | 2024-09-30 17:28 | XMS_ITS | Clinical Summary ---
Author Organization [facility] Address [address] [place] [address] Phone Care Team Providers Care Travel Registered Nurse Icu Name Role Phone Michael Vogel MD Primary Care Provider [phone] Allergies Active Allergy Reactions Criticality Noted Date [...] 4 WEEKS 3 Active ergocalciferol 1.25 MG (73590 UT) capsule TAKE 1 CAPSULE BYMOUTH ONCE [...] Cancer Screening: Sigmoidoscopy 01/15/2009 Influenza Vaccine (#1) 2024 01/09/2017 Hepatitis B Vaccine Aged Out No longe r eligible based on patient's age to complete this topic Insurance Care Teams Travel Registered Nurse Icu Relationship Specialty Start Date End Date Michael Vogel MD [address] [place] [address] PCP - General Internal Medicine 05/03/22
[2024-09-30] MEDS: iohexoL 350 MG/ML 100 ML INFUS..BTL IV (18:53)
--- NOTE | 2024-09-30 19:10 | PC.NURSE ---
this RN assumed care of pt @1900, pt medicated per APR, pt appears to be in no apparent distress at this time, R. foot assessed and abrasion noted on top of foot, 0.5X1cm red with scabbed center pt stated this started small then has gotten worse , scabbed 0.5x0.5cm abrasion noted on top of large toe
[2024-09-30 22:28] LABS: INTERNATIONAL NORM RATIO 0.9 (0.9-1.1); Prothrombin Time 10.8 SEC (10.9-12.4)
[2024-09-30 22:30] LABS: PTT Heparin Drip 26.0 SEC (53-77.9)
[2024-09-30] MEDS: Heparin Sodium,Porcine/1/2NS 25,000 UNIT/250 ML IV.SOLN 12.38 UNIT IVCONT (22:33)
--- NOTE | 2024-09-30 22:46 | PC.NURSE ---
nurse to nurse report given to ROSALINA Pascual from [facility] ED, pt being transferred by [facility], heparin drip running infused approximately 2.889 mL's
[2024-10-01 00:20] LABS: Reflex Lactate? Lactic Acid Added
== END 2024-09-30 22:51 | disposition short-term general hospital (02) ==
PROVIDERS: Physician Assistant; Emergency Provider Emergency Medicine Emergency Medical Services; PCP Internal Medicine
DX: I99.8 Other disorder of circulatory system (principal); M79.671 Pain in right foot; E11.9 Type 2 diabetes mellitus without complications; Z79.84 Long term (current) use of oral hypoglycemic drugs; E11.40 Type 2 diabetes mellitus with diabetic neuropathy, unspecified; J45.909 Unspecified asthma, uncomplicated
CPT/HCPCS: 36415; 73630; 75635; 80048; 80076; 83605; 83735; 84550; 85025; 85610; 85652; 85730; 86140; 93005; 96374; 96375; 99285; J1644; J2270; Q9967

== ENCOUNTER → 2024-09-30 12:30 | Outpatient (BNV) | payer OTHER, SELFPAY | PROVIDERS: PCP Internal Medicine; Visit Provider Radiology Diagnostic Radiology | DX: I73.9 Peripheral vascular disease, unspecified (principal); M19.071 Primary osteoarthritis, right ankle and foot | CPT/HCPCS: 75635 ==

== ENCOUNTER → 2024-09-30 12:33 | Outpatient (BNV) | payer OTHER, SELFPAY | PROVIDERS: Emergency Provider Emergency Medicine Emergency Medical Services; PCP Internal Medicine; Visit Provider Internal Medicine | DX: I10 Essential (primary) hypertension (principal) | CPT/HCPCS: 93010 ==

== ENCOUNTER 2024-12-08 09:50 | Outpatient (AMB) | payer OTHER, SELFPAY ==
[2024-12-08 09:56] VITALS: BP 138/100; PULSE 118; O2SAT 98; BMI 30.2
--- NOTE | 2024-12-08 09:56 | MHC.PC.OV ---
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 Accompanied by: Self / Same As Patient Allergies No Known Allergies Allergy (Verified 12/08/24 10:41) Medication List - Last Reconciled 12/08/24 by Michael Vogel MD albuterol sulfate 2.5 mg (3 mL) inhalation Q4-6H PRN albuterol sulfate 2.5 mg (3 mL) continuous nebulization QID PRN 30 days blood sugar diagnostic (FreeStyle Test strips) 1 strip miscellaneous TID duloxetine 30 mg PO BID 30 days lancets (FreeStyle Lancets) As directed three times per day lisinopril 20 mg PO DAILY metformin 1,000 mg PO BID nebulizer accessories As directed nebulizers As directed nystatin 10 mL buccal TID 10 days omeprazole 20 mg PO DAILY 90 days ondansetron 4 mg PO Q8H PRN oxycodone 30 mg PO Q12H 28 days rosuvastatin (Crestor) 40 mg PO DAILY 90 days sucralfate (Carafate) 10 mL PO BID 30 days Ventolin HFA 90 mcg/actuation (albuterol sulfate) 2 puffs inhalation Q6H PRN NS zolpidem 10 mg PO BEDTIME PRN 30 days Tobacco use date assessed: 12/08/24 Fall risk assessment: No Falls in past year Last assessed Fall Risk: 12/08/24 Dental Screening Dental Screen Date: 12/08/24 Did you have a dental visit in the last 12 months?: Yes Did you have a dental problem in the last 6 months where you did not have access to dental care?: No Was dental information given to patient?: Patient has dentist HPI DM, RA, neuropathy, HTN, hyperlipidemia HPI Details Patient comes in today for her follow up visit States that she continues to experience recurrent pain and burning sensations in her legs and feet often, with the burning sensation in her feet worse at night but her severe right foot pain that she was experiencing over the past few months have improved significantly since she had MOTOR POOL CLERK atherectomy and plasty of her right lower extremity at [facility] on 10/03/2024 States that she still has an ulder on her right foot but this has improved significantly since her surgery and that the ulcer is now healing well She continues to follow up with Dr. [facility] for her RA and states that she gets injections into a few of her joints every few months, including into her hands (knuckles) and her wrists She is being maintained only on oral Prednisone, currently at 2.5 mg QD, as she has apparently tried and failed all of the anti-TNFs and DMARDs available in the market today for her rheumatoid arthritis, including Rinvoq, Xeljanz, Olumiant, Cimzia, Rituximab, Actemra, Orencia, Azathioprine and MTx States that she has received some injection into her lower back from [facility] last year that provided her with some relief of her low back pain but she has not been able to get another appointment scheduled with [facility] since Patient states she feels okay otherwise She denies any headaches or dizziness Denies any chest pains, no SOB No nausea/vomiting, no abdominal pain No change in bowel habits noted She is presently also following up with hematology for her anemia and is receiving IV iron infusions as needed She had her follow up labs done a couple of weeks ago although these did not include her fasting lipids - to discuss her results [facility] Medical History (Updated 12/15/24 @ 04:27 by Michael Vogel MD) Lumbar degenerative disc disease Mixed hyperlipidemia Venous insufficiency of both lower extremities Abnormal bruising Obesity (BMI 30-39.9) Anxiety Insomnia GERD (gastroesophageal reflux disease) Vitamin D deficiency Ureterolithiasis Neuropathy Varicose veins of bilateral lower extremities with pain Rheumatoid arthritis Cervical spondylosis with radiculopathy Asthma Iron deficiency anemia, unspecified Vitamin B12 deficiency Hyperlipidemia Hypertension, essential, benign Diabetes mellitus Surgical History (Updated 12/08/24 @ 13:16 by Michael Vogel MD) History of atherectomy Hx of lithotripsy History of surgery on left wrist History of surgery on right wrist History of arthroplasty of left ankle History of arthroplasty of right ankle S/P VANESSA-BSO (total abdominal hysterectomy and bilateral salpingo-oophorectomy) History of arthroplasty of right knee (~2008) Family History Father Chronic mental illness Mother Diabetes Hypertension Stroke Sister Heart disease Diabetes Social History Household Members: Family Housing: Apartment Alcohol intake: never Patient Tobacco Use Status: Former Tobacco user Years Smoked: quit 6 years ago e-Cigarette/Vaping Use: Never Used Second Hand Smoke Exposure: No Substance Use Type: Prescription Drugs service: No Current occupational status: disabled Cognitive needs: No (cane) Hearing needs: No Vision needs: Yes (glasses) Questionnaire PHQ-9 Over the last 2 weeks, how often have you been bothered by any of the following problems? Depression Screening Interpretation: Negative Depression Screening Done: Yes Source: Developed by Drs. Fredy Mota, Ayanna Sharp, Gaston Garcia and colleagues, with an educational stephanie from [employer]. Thrive Questionnaire Date Thrive assessed: 06/02/24 Currently or been in a relationship where the following occur: No concerns reported THRIVE Score: 0 AUDIT C Alcohol Use Questionnaire (AUDIT-C) 1. How often do you have a drink containing alcohol?: Never 3. How often do you have six or more drinks on one occasion?: Never Total Score: 0 Score Reviewed/Action Taken: Yes BALJIT-7 AMB Questionnaire BALJIT-7 Date BALJIT - 7 assessed: 06/02/24 Source: Developed by Drs. Fredy Mota, Ayanna Sharp, Gaston Garcia and colleagues, with an educational stephanie from [employer]. Review of Systems Const Denies chills, Reports fatigue, Denies fever(s) and Denies headache(s) ENT Denies dysphagia, Denies dizziness, Denies otalgia, Denies headache(s), Reports neck pain, Denies odynophagia and Denies sore throat Card Denies chest pain, Reports rapid heart rate (at times), Denies irregular heart rhythm and Reports dyspnea on exertion (mild) Resp Denies chest congestion, Denies cough and Reports dyspnea on exertion (mild) GI Denies abdominal pain, Denies constipation, Denies dysphagia, Denies heartburn, Denies diarrhea, Denies nausea, Denies odynophagia and Denies vomiting Denies difficulty voiding, Denies nocturia, Denies dysuria and Denies urinary urgency Musc Details: c/o increasing pain in her legs and feet lately Reports back pain (over the lumbar spine - chronic), Reports myalgias, Reports arthralgias (involving multiple joints; increased pain over the right hip), Reports joint swelling (on and off in both hands and feet), Reports neck pain, Reports radiating pain into limb (bilaterally) and Reports tingling (over both lower extremities, on and off) Skin/Breast Denies rash Neuro Reports burning sensations (in her feet, on and off, worse at night), Denies dizziness, Denies headache(s), Reports radicular pain (in both lower extremities) and Reports tingling (over both lower extremities, on and off) Endo Reports fatigue Daniel/Lymph Details: on and off swelling of her legs and feet Physical exam (Primary Care) Vital Signs: Last Vital Signs Pulse 118 H 12/08/24 09:56 BP 138/100 H 12/08/24 09:56 Pulse Ox 98 12/08/24 09:56 Oxygen Delivery Method Room Air 12/08/24 09:56 BMI result Body Mass Index 30.2 Tobacco/Smoking Status: Tobacco use Status Tobacco use date assessed 12/08/24 12/08/24 10:15 Patient Tobacco Use Status Former Tobacco user 12/08/24 10:15 e-Cigarette/Vaping Use Never Used 12/08/24 10:15 Depression Screening Interpretation: Negative Thrive Assessment: Date of Thrive Assessment Date Thrive assessed 06/02/24 12/08/24 10:15 Currently or been in a relationship where the following occur: No concerns reported Const General: no acute distress and alert HENMT Ears: TM's normal bilaterally and EAC's normal Throat: Yes posterior oropharynx normal and Yes tonsils normal (no TP congestion noted) Neck Neck: Yes supple and No lymphadenopathy Thyroid: Thyroid normal Resp Auscultation: clear to auscultation bilaterally, no rales and no wheezes Cardio Rate: regular rate Rhythm: regular rhythm Heart sounds: no murmurs GI Palpation (GI): Soft to palpation, nontender, no guarding and no masses Auscultation: normal bowel sounds General: Yes no CVA tenderness Back/Spine/Pelvis Back: no CVA tenderness Cervical Spine: Cervical spine tenderness Thoracic/Lumbar Spine: paraspinal muscle tenderness on the left in the lower thoracic and in the upper thoracic and lumbar spinal tenderness Skin Rashes: no rashes Extrem Other: (+) contractures noted on both hands, with limited ROM as a result General: No clubbing, No cyanosis and Yes edema ((+) edema of both hands and feet) Right upper extremity: Extremity exam: right hand Details: tenderness Left upper extremity: hand Details: tenderness Results Reviewed Results Reviewed: Laboratory Tests 04/28/24 09/30/24 11/20/24 09:23 12:44 09:18 WBC 10.9 H Hgb 11.6 L Hct 35.4 L Plt Count 366 D Sodium 146 H Potassium 4.1 Creatinine 0.89 Estimated GFR > 60 Calcium 8.8 Iron 26 L TIBC 178 L % Saturation 15 Ferritin 45 Total Bilirubin 0.5 Direct Bilirubin 0.2 AST 22 ALT 16 Triglycerides 166 H Cholesterol 161 LDL Cholesterol, Calc 82 HDL Cholesterol 46 Laboratory Tests 11/20/24 09:18 Random Glucose 119 H Coding Level of Care Code Est Pt Level 4 (22177) Complex EM visit Add On G2211 Diagnoses Acute lower limb ischemia I99.8 Venous insufficiency of both lower extremities I87.2 Type 2 diabetes mellitus with diabetic neuropathy, without long-term current use of insulin E11.40 Diabetes mellitus complication detail: with unspecified neuropathy Diabetes mellitus complication status: with neurologic complications 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 mellitus 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22 Rheumatoid arthritis with positive rheumatoid factor, involving unspecified site M05.9 Rheumatoid arthritis location: unspecified site Rheumatoid factor presence: with rheumatoid factor Vitamin B12 deficiency E53.8 Vitamin D deficiency E55.9 Gastroesophageal reflux disease without esophagitis K21.9 Esophagitis presence: without esophagitis Bilateral renal stones N20.0 Primary insomnia F51.01 Insomnia type: primary Anxiety F41.9 Obesity (BMI 30-39.9) E66.9 Assessment & Plan Assessment & Plan (1) Acute lower limb ischemia: Code(s): I99.8 - Other disorder of circulatory system Category: Medical Plan: S/P MOTOR POOL CLERK atherectomy and plasty of her right lower extremity at [facility] on 10/03/2024, with significant improvement of her lower extremity symptoms since Patient states that her right foot ulcer has also improved significantly and is healing well at present Follow-up with vascular surgery as scheduled (2) Venous insufficiency of both lower extremities: Code(s): I87.2 - Venous insufficiency (chronic) (peripheral) Category: Medical Plan: Follow up with vascular surgery as scheduled She has been advised to just continue with conservative treatments for now due to her multiple comorbidities (3) Diabetes mellitus: Code(s): E11.9 - Type 2 diabetes mellitus without complications Category: Medical Qualifiers: Diabetes mellitus complication detail: with unspecified neuropathy Diabetes mellitus complication status: with neurologic complications 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 mellitus 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 insulin use: without 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 use Diabetes mellitus type: type 2 Qualified Code(s): E11.40 - Type 2 diabetes mellitus with diabetic neuropathy, unspecified Plan: Her HgbA1c was at 6.3% when last checked in April 2024 (in-office HgbA1c was previously at 7.4% a few months prior) - goal is at least < 7.0% Reinforced diabetic diet Continue Metformin 1000 mg BID (4) Neuropathy: Comment: Repeat NCV and EMG done in November 2017 revealed findings consistent with neuropathy Code(s): G62.9 - Polyneuropathy, unspecified Category: Medical Plan: Continue Duloxetine 30 mg BID, Pregabalin 150 mg TID and Oxycodone 30 mg Q 12 hours although patient states that her Rx have not been helping her lately in terms of her burning pains in both of her feet Have discussed again with patient that aside from what she is on at this time (Duloxetine, Pregabalin/Gabapentin), there are really no effective Rx available for neuropathic pain Have advised her to try reaching out to [facility] to schedule a follow up appt KATHI as interventional pain management at this time would be the only option left that can help her with her symptoms (5) Mixed hyperlipidemia: Code(s): E78.2 - Mixed hyperlipidemia Category: Medical Plan: Results of her labs done a couple of weeks ago reviewed and discussed with patient but these did not include her fasting lipids Her cholesterol levels were at or close to goal when they were last checked in April 2024 Reinforced low cholesterol diet Continue Rosuvastatin 40 mg QD and Ezetimibe 10 mg QD Will recheck her labs and fasting lipids in 3 months for follow up (6) Essential hypertension: Code(s): I10 - Essential (primary) hypertension Category: Medical Plan: Reinforced low sodium diet - goal is systolic BP of at least 120 to 130 mm or less Continue Lisinopril 20 mg QD and Furosemide 20 mg QD (7) Asthma: Code(s): J45.909 - Unspecified asthma, uncomplicated Category: Medical Qualifiers: Asthma complication type: uncomplicated Asthma persistence: intermittent Asthma severity: mild Qualified Code(s): J45.20 - Mild intermittent asthma, uncomplicated Plan: Controlled - patient states that she uses her Albuterol HFA inhaler only as needed (8) Iron deficiency anemia, unspecified: Code(s): D50.9 - Iron deficiency anemia, unspecified Category: Medical Qualifiers: Iron deficiency anemia type: inadequate dietary iron intake Qualified Code(s): D50.8 - Other iron deficiency anemias Plan: Her H/H was normal on her most recent labs done in April 2024 Continue IV iron Tx as needed Follow up with hematology (Dr. Anthony) as scheduled She has been referred to GI for screening colonoscopy (recalls having one done at [facility] a few years ago but have been unable to locate [facility] or [facility] - patient states that her procedure was aborted at the time as she started bleeding during the procedure) She was seen last year for precolonoscopy but anesthesia recommended cardiac clearance first She has since been cleared but has not yet been scheduled and this has yet to be done - she was referred back to GI for colonoscopy at her last visit but she is still waiting for this to be scheduled (9) Lumbar degenerative disc disease: Code(s): M51.369 - Other intervertebral disc degeneration, lumbar region without mention of lumbar back pain or lower extremity pain Category: Medical Qualifiers: Disc-related pain type: discogenic back pain only Qualified Code(s): M51.360 - Other intervertebral disc degeneration, lumbar region with discogenic back pain only Plan: She had a non-traumatic compression fracture of eleventh thoracic vertebra first seen on repeat lumbar spine x-rays done in late 2022 - this was most likely at least a partial source of her recent recurrent left mid to lower back pain and discomfort It was suspected that this may have resulted from her last ESWL a few months prior She reportedly had BMD done at Dr. Kennedy's office on 05/20/2021 and her left femur T-score at the time was at -1.8 - she was started on Alendronate [address] Kennedy to try to lower her fracture risk Repeat spine x-rays done last year showed some progression of her degenerative changes from previous Continue Oxycodone 30 mg BID PRN and Pregabalin 150 mg TID Follow up with [facility] as scheduled for continuing pain management although she states that pain management have not been helping much lately (10) Cervical spondylosis with radiculopathy: Code(s): M47.22 - Other spondylosis with radiculopathy, cervical region Category: Medical Plan: Continue Oxycodone 30 mg Q 12 hours PRN, Cyclobenzaprine 5 mg TID PRN and Lidocaine 5% ointment topically TID PRN MRI of the cervical spine previously requested for was denied by insurance (11) Rheumatoid arthritis: Comment: Is on Prednisone 5 mg-20 mg daily, Methotrexate tablets 2.5 mg 6 tablets once a day on Sundays. Rinvoq ER 15 mg qd has been discontinued. Code(s): M06.9 - Rheumatoid arthritis, unspecified Category: Medical Qualifiers: Rheumatoid arthritis location: unspecified site Rheumatoid factor presence: with rheumatoid factor Qualified Code(s): M05.9 - Rheumatoid arthritis with rheumatoid factor, unspecified Plan: Continue Prednisone 2.5 mg QD as needed for flare ups She was most recently on Methotrexate injection (Rasuvo) 20 mg once a week but this was also discontinued due to side effects (rash) Patient so far has failed multiple treatments for RA - was unable to tolerate Rinvoq (diarrhea) and had poor or no clinical response to Xeljanz, Olumiant, Cimzia and Rituximab; she has also failed anti-TNF therapies, as well as Actemra, Orencia and multiple other DMARDs including Azathioprine Follow up with rheumatology (Dr. Kennedy) as scheduled (12) Vitamin B12 deficiency: Code(s): E53.8 - Deficiency of other specified B group vitamins Category: Medical Plan: Continue oral Vitamin B12 1000 mcg QD and B12 injection monthly (13) Vitamin D deficiency: Code(s): E55.9 - Vitamin D deficiency, unspecified Category: Medical Plan: Continue OTC Vitamin D supplements as well as her weekly 29715 units of Vitamin D2 (14) GERD (gastroesophageal reflux disease): Comment: continue ppi- avoid culprits EGD- Code(s): K21.9 - Gastro-esophageal reflux disease without esophagitis Category: Medical Qualifiers: Esophagitis presence: without esophagitis Qualified Code(s): K21.9 - Gastro-esophageal reflux disease without esophagitis Plan: Dietary restrictions reinforced Continue Omeprazole 20 mg QD PRN (15) Bilateral renal stones: Comment: Left ESWL 12/17 Code(s): N20.0 - Calculus of kidney Category: Medical Plan: S/P repeat ESWL last year but states that she is still experiencing recurrent pain and discomfort, and more recently, pain over her left lower throacic and lumbar area Follow up with urology as scheduled (16) Insomnia: Code(s): G47.00 - Insomnia, unspecified Category: Medical Qualifiers: Insomnia type: primary Qualified Code(s): F51.01 - Primary insomnia Plan: Sleep hygiene reinforced Continue Zolpidem 10 mg Q HS PRN (17) Anxiety: Code(s): F41.9 - Anxiety disorder, unspecified Category: Medical Plan: States that her anxiety has been controlled lately - used to take Fluoxetine but she has not been on this in a while now (18) Obesity (BMI 30-39.9): Code(s): E66.9 - Obesity, unspecified Category: Medical Plan: Reinforced diet; exercise and weight loss are unrealistic at present due to her increasing low back pain and lumbar radicular pain and other multiple comorbidities Plan Follow up in 3 months Orders: Orders Microalbumin, Random (w Creat) 3 Months E11.9 - Type 2 diabetes mellitus without complications Hemoglobin A1c 3 Months E11.9 - Type 2 diabetes mellitus without complications Vitamin B12 and Folate 3 Months E53.8 - Deficiency of other specified B group vitamins Complete Blood Count Auto Diff 3 Months D64.9 - Anemia, unspecified Comprehensive [place]. Panel Fast 3 Months E78.00 - Pure hypercholesterolemia, unspecified Lipid Panel 3 Months E78.00 - Pure hypercholesterolemia, unspecified TSH reflex Free T4 3 Months E78.00 - Pure hypercholesterolemia, unspecified UA CC w/rflx Micro + Cult 3 Months R30.0 - Dysuria Vitamin D 25-OH Total 3 Months E55.9 - Vitamin D deficiency, unspecified Uric Acid 3 Months M10.9 - Gout, unspecified
--- OUTSIDE RECORDS SUMMARY | 2024-12-08 09:57 | XMS_ITS | Clinical Summary ---
Author Organization [facility] Address [address] [facility] [address] [place] [address] Phone Care Team Providers Care Anesthesia Director Name Role Phone Michael Vogel MD Primary Care Provider [phone] Allergies Active Allergy Reactions Criticality Noted Date [...] 4 WEEKS 3 Active ergocalciferol 1.25 MG (28196 UT) capsule TAKE 1 CAPSULE BYMOUTH ONCE [...] to complete this topic Insurance Care Teams Anesthesia Director Relationship Specialty Start Date End Date Michael Vogel MD [address] [place] [address] PCP - General Internal Medicine 05/03/22
--- OUTSIDE RECORDS SUMMARY | 2024-12-08 09:57 | XMS_ITS | Encounter Summary ---
Author Organization [facility] Address [address] [place] [address] Care Team Providers Care Transitional Care Nurse Name Role Phone Michael Vogel MD Primary Care Provider [phone] Pamela Diego MD Unavailable [phone] Reason for Referral * Vascular (Routine) - Authorized Specialty Diagnoses / Procedures Referred By Milton paredes Referred To Contact Surgery, Vascular / Vascular Surgery Diagnoses Venous (peripheral) insufficiency Varicose veins of both lower extremities with pain Michael Vogel MD [address] [place] [address] Dr Gotti [address] [place] [phone] Phone: tel: fax: [facility] Vascular & Endovascular Surgery [address] [place] [address] Phone: tel: fax: Referral ID Status Reason Start Date Expiration Date V isits Requested Visits Authorized [id number] Authorized Consult 12/03/2024 12/04/2025 1 1 Question Answer Are you referring to the Aortic Program? No Encounter Details Date Type Department Care Team (Latest Contact Info) Description 12/03/2024 Transcribe Orders [facility] Vascular & Endovascular Surgery [address] [place] [phone] Michael Vogel MD [address] [place] [address] Dr Stock [place], [place] [id number] Venous (peripheral) insufficiency (Primary Dx); Varicose veins of both lower extremities with pain Social History Tobacco Use Types Packs/Day Years Used Date Smoking Tobacco: Never Assessed [facility] Utilities Answer Date Recorded In the past 12 months has th e electric, gas, oil, or water company threatened to shut off services in your home? No 10/02/2024 Hunger Vital Sign Answer Date Recorded Within the past 12 months, y ou worried that your food would run out before you got the money to buy more. Never true 10/03/19 25 Within the past 12 months, t he food you bought just didn't last and you didn't have money to get more. Never true 10/02/2024 PRAPARE - Transportation Answer Date Re corded In the past 12 months, has l ack of transportation kept you from medical appointments or from getting medications? No 08/2024 In the past 12 months, has l ack of transportation kept you from meetings, work, or from getting things needed for daily living? No 10/02/2024 Housing Stability Vital Sign Answer Nigel e Recorded In the last 12 months, was t here a time when you were not able to pay the mortgage or rent on time? No 10/02/2024 In the past 12 months, how m any times have you moved where you were living? 1 10/02/2024 At any time in the past 12 m [facility], were you homeless or living in a custodial (including now)? No 10/02/2024 Comments Unknown Sex and Gender Information Value Date Recorded Sex Assigned at Female 10/01/2024 3:34 AM EDT Legal Sex Female 9:47 PM EDT Gender Identity Female 10/01/2024 3:34 AM EDT Sexual Orientation Heterosexual (straight) 10/01 3:34 AM EDT documented as of this encounter Plan of Treatment Upcoming Encounters Date Type Department Care Team (Late st Contact Info) Description 12/08/2024 2:30 PM EDT Ancillary Procedure [facility] Vascular & Endovascular Surgery [address] [place] [phone] Pamela Diego MD [address] [address] 12/08/2024 3:00 PM EDT Office Visit [facility] Vascular & Endovascular Surgery [address] [place] [phone] Mansoor Olivas MD [address] [place] [address] 12/16/2024 8:00 AM EDT Office Visit [facility] Podiatric Surgery [address] [phone] Floyd Rhodes, DPM [address] [facility] [address] [place], [place] [address] Scheduled Referrals Name Type Priority Associated Diagnoses Orde r Schedule Amb Referral to Vascular Surgery Outpatient Referral Routine Venous (peripheral) insufficiency Varicose veins of both lower extremities with pain Ordered: 12/03/2024 documented as of this encounter Visit Diagnoses Diagnosis Venous (peripheral) insufficiency- Primary Unspecified venous (peripheral) insufficiency Varicose veins of both lower extremities with pain documented in this encounter Care Teams Transitional Care Nurse Relationship Specialty Start Date End Date Michael Vogel MD [address] [place] [address] [place] [phone] PCP - General Internal Medicine 10/01/24 Pamela Diego MD [address] [place] [id number] Surgery, Vascular 10/21/24 documented as of this encounter
--- OUTSIDE RECORDS SUMMARY | 2024-12-08 09:57 | XMS_ITS | Clinical Summary ---
Author Organization [facility] Address [address] [place] [address] Care Team Providers Care Logging Supervisor Name Role Phone Michael Vogel MD Primary Care Provider [phone] Pamela Diego MD Unavailable [phone] Allergies No known active allergies Medications Ventolin HFA 108 (90 Base) MCG/ACT inhaler INHALE 2 PUFFS EVERY 6 HOURS NEEDED FOR BRONCHOSPASM 5 Active FREESTYLE TEST STRIPS test strip 3 (three) times a day. Use as directed 5 Active FreeStyle Lancets lancet DIRECTED THREE TIMES PER DAY 5 Active lisinopril (PRINIVIL,ZeSTR IL) 20 MG tablet Take 1 tablet (20 mg total) by mouth daily. 5 Active metFORMIN (GLUCOPHAGE) 1000 MG tablet Take 1 tablet (1,000 mg total) by mouth 2 (two) times a day with meals. 5 Active OMEprazole (PriLOSEC) 20 MG capsule Take 1 capsule (20 mg total) by mouth every morning before breakfast. 5 Active oxyCODONE (ROXICODONE) 30 MG immediate release tablet Take 1 tablet (30 mg total) by mouth 3 times daily (every 8 hours) as needed for severe pain. 5 Active predniSONE (DELTASONE) 10 MG tablet Take 1 tablet (10 mg total) by mouth daily. 5 Active rosuvastatin (CRESTOR) 40 MG tablet Take 1 tablet (40 mg total) by mouth daily. 5 Active zolpidem (AMBIEN) 10 MG tablet Take 1 tablet (10 mg total) by mouth nightly. 5 Active amLODIPine (NORVASC) 5 MG tabletIndicatio ns:Stenosis of superficial femoral artery Take 1 tablet (5 mg total) by mouth daily. 30 tablet 5 Active aspirin enteric coated (ECOTRIN LOW STRENGTH) 81 MG EC tabletIndicatio ns:Stenosis of superficial femoral artery Take 1 tablet (81 mg total) by mouth daily. 30 tablet 5 Active nystatin (MYCOSTATIN) 205793 UNIT/ML suspensionIndic ations:Diabetes mellitus with peripheral circulatory disorder (HCC),Oral thrush Take 5 mL (500,000 Units total) by mouth 4 (four) times a day. 60 mL 5 Active Active Problems Problem Noted Date Diagnosed Date Acute lower limb ischemia 10/01/2024 Assessment & Plan (10/06/2024 6:35 AM EDT): S/p right lower extremity angiogram with HULLER OPERATOR atherectomy and plasty on 10/03/2024 Patient had noninvasive invasive vascular studies performed for new baseline after surgery Patient been followed by vascular surgeon as per vascular surgery recommendation Patient should continue on aspirin 81 mg and high intensity statin Patient can follow-up with her in the [place] office in 3 to 4 weeks Discharge information placed in the discharge section of the patient's chart as per vascular surgeon no other acute vascular interventions warranted at this time Patient is on IV antibiotics Follow-up ID recommendation Assessment & Plan (10/04/2024 11:31 AM EDT): Status post right lower extremity angiogram with HULLER OPERATOR atherectomy and plasty on 10/03/2024 Patient been followed by vascular surgeon and podiatry Patient on aspirin and rosuvastatin Was on heparin drip which was been discontinued Patient is on IV antibiotic vancomycin as per ID recommendation Vascular lab studies pending noninvasive vascular studies and vein mapping pending at this time Assessment & Plan (10/01/2024 4:36 AM EDT): Will continue heparin drip Start on aspirin 80 mg daily Continue home rosuvastatin 40 mg daily JESI/PVR , and Doppler ordered by vascular Podiatry consulted Type 2 diabetes mellitus 10/01/2024 Assessment & Plan (10/06/2024 1:43 PM EDT): Home Regimen: Metformin 1,000mg BID - Resume metformin at discharge - Continue finger sticks as ordered - Continue Diabetic Diet - 60 grams of carbs/meal Assessment & Plan (10/06/2024 6:35 AM EDT): Monitor blood sugar Patient is on SSI Hemoglobin A1c 7.1 Assessment & Plan (10/04/2024 11:31 AM EDT): Hemoglobin A1c 7.1 Monitor blood sugar Patient is on SSI Assessment & Plan (10/03/2024 3:34 PM EDT): A1c 7.0. Home regimen: Metformin thousand Mg daily. In hospital: SSI, POCT ACHS, hypoglycemic protocol. Diabetic diet. Assessment & Plan (10/02/2024 6:56 PM EDT): A1c 7.0 Home regimen includes metformin 1 g twice daily POCT ACHS Sliding scale insulin Assessment & Plan (10/01/2024 9:44 AM EDT): A1c 7.0 Home regimen includes metformin 1 g twice daily POCT ACHS Sliding scale insulin Assessment & Plan (10/01/2024 4:27 AM EDT): On metformin 1000 mg twice daily Will do fingersticks 3 times daily AC nightly Insulin sliding scale Hemoglobin A1c 7 Primary hypertension 10/01/2024 Assessment & Plan (10/06/2024 1:43 PM EDT): - Continue lisinopril, crestor, and amlodipine Assessment & Plan (10/06/2024 6:35 AM EDT): Patient is on lisinopril and amlodipine As needed for hydralazine Monitor blood pressure and heart rate Assessment & Plan (10/04/2024 11:31 AM EDT): Patient is on lisinopril and amlodipine As needed for hydralazine Assessment & Plan (10/03/2024 3:34 PM EDT): Continue lisinopril, rosuvastatin and as needed hydralazine. Continue amlodipine 5 Mg daily. Assessment & Plan (10/02/2024 6:56 PM EDT): Continue lisinopril, rosuvastatin Hydralazine 10 mg as needed for SBP greater than 180 Added amlodipine 5 mg BP up likely due to anxiety and pain. Assessment & Plan (10/01/2024 12:17 PM EDT): Continue lisinopril, rosuvastatin Hydralazine 10 mg as needed for SBP greater than 180 Added amlodipine 5 mg BP up likely due to anxiety and pain. Assessment & Plan (10/01/2024 4:27 AM EDT): Continue home lisinopril Continue home rosuvastatin Hyperlipidemia 10/01/2024 Assessment & Plan (10/06/2024 1:43 PM EDT): - Continue lisinopril, crestor, and amlodipine Assessment & Plan (10/06/2024 6:35 AM EDT): Patient is on rosuvastatin Assessment & Plan (10/04/2024 11:31 AM EDT): Patient is on rosuvastatin Assessment & Plan (10/03/2024 3:34 PM EDT): Continue lisinopril, rosuvastatin and as needed hydralazine. Continue amlodipine 5 Mg daily. Assessment & Plan (10/02/2024 6:56 PM EDT): Continue lisinopril, rosuvastatin Hydralazine 10 mg as needed for SBP greater than 180 Added amlodipine 5 mg BP up likely due to anxiety and pain. Assessment & Plan (10/01/2024 12:17 PM EDT): Continue lisinopril, rosuvastatin Hydralazine 10 mg as needed for SBP greater than 180 Added amlodipine 5 mg BP up likely due to anxiety and pain. Assessment & Plan (10/01/2024 4:27 AM EDT): Continue home lisinopril Continue home rosuvastatin Rheumatoid arteritis 10/01/2024 Assessment & Plan (10/06/2024 1:43 PM EDT): - Continue prednisone 10mg daily Assessment & Plan (10/06/2024 6:35 AM EDT): Continue prednisone 10 mg p.o. daily Assessment & Plan (10/04/2024 11:31 AM EDT): Prednisone 10 mg daily Assessment & Plan (10/03/2024 3:34 PM EDT): Continue prednisone 10 Mg daily Assessment & Plan (10/02/2024 6:56 PM EDT): Continue prednisone 10 mg daily Assessment & Plan (10/01/2024 9:44 AM EDT): Continue prednisone 10 mg daily Assessment & Plan (10/01/2024 4:27 AM EDT): Prednisone recently increased from 2.5 mg to 10 Mild asthma 10/01/2024 Assessment & Plan (10/04/2024 11:31 AM EDT): Patient gets nebulization as needed Assessment & Plan (10/03/2024 3:34 PM EDT): Nebulization as needed Assessment & Plan (10/02/2024 6:56 PM EDT): Nebs as needed Assessment & Plan (10/01/2024 9:44 AM EDT): -Nebs as needed Assessment & Plan (10/01/2024 4:27 AM EDT): DuoNebs as needed Right foot ulcer 10/01/2024 Assessment & Plan (10/06/2024 1:43 PM EDT): Patient presented with concern for right lower extremity critical limb ischemia. Patient underwent right lower extremity angiogram with HULLER OPERATOR atherectomy and plasty on 10/03/2024. - Vascular surgery followed throughout admission. Follow up in 3 weeks outpatient - Podiatry signed off. Follow up in 1 week outpatient. - ID followed throughout admission. Okay to stop ABX. - Continue ASA and statin Assessment & Plan (10/06/2024 6:35 AM EDT): S/p right lower extremity angiogram with HULLER OPERATOR atherectomy and plasty on 10/03/2024 Patient had noninvasive invasive vascular studies performed for new baseline after surgery Patient been followed by vascular surgeon as per vascular surgery recommendation Patient should continue on aspirin 81 mg and high intensity statin Patient can follow-up with her in the [place] office in 3 to 4 weeks Discharge information placed in the discharge section of the patient's chart as per vascular surgeon no other acute vascular interventions warranted at this time Patient is on IV antibiotics Follow-up ID recommendation Assessment & Plan (10/04/2024 11:31 AM EDT): Status post right lower extremity angiogram with HULLER OPERATOR atherectomy and plasty on 10/03/2024 Patient been followed by vascular surgeon and podiatry Patient on aspirin and rosuvastatin Was on heparin drip which was been discontinued Patient is on IV antibiotic vancomycin as per ID recommendation Vascular lab studies pending noninvasive vascular studies and vein mapping pending at this time Assessment & Plan (10/03/2024 3:34 PM EDT): CT angiogram with abdominal aorta and iliofemoral runoff with contrast showed multifocal SFA and bilateral one-vessel disease Vascular surgery, podiatry following. S/p RLE angiogram with HULLER OPERATOR atherectomy and plasty on 10/03. Was on heparin drip, discontinued. Continue aspirin, rosuvastatin. Vascular studies ordered. ID following, continues on vancomycin. Will start DVT prophylaxis tomorrow. Neurovascular checks. Pain management with as needed p.o. Dilaudid. Assessment & Plan (10/02/2024 6:56 PM EDT): CT angiogram with abdominal aorta and iliofemoral runoff with contrast showed multifocal SFA and bilateral one-vessel disease Vascular surgery consulted no concerns for acute lower limb ischemia Continue heparin drip Continue aspirin and rosuvastatin JESI/PVR ordered ID consulted Continue Unasyn, vancomycin Podiatry consult Assessment & Plan (10/01/2024 12:17 PM EDT): CT angiogram with abdominal aorta and iliofemoral runoff with contrast showed multifocal SFA and bilateral one-vessel disease Vascular surgery consulted no concerns for acute lower limb ischemia Continue heparin drip Continue aspirin and rosuvastatin JESI/PVR ordered ID consulted Continue Unasyn, vancomycin Podiatry consult Start oxycodone 5 mg 4 times daily as needed Anxiety 10/01/2024 Assessment & Plan (10/06/2024 6:35 AM EDT): Patient is on Atarax Assessment & Plan (10/04/2024 11:31 AM EDT): Continue with Atarax Assessment & Plan (10/03/2024 3:34 PM EDT): Continue Atarax. Assessment & Plan (10/02/2024 6:56 PM EDT): Atarax as patient endorses some anxiety Assessment & Plan (10/01/2024 12:17 PM EDT): Start Atarax as patient endorses some anxiety Encounters Date Type Department Care Team Description 12/03/2024 Transcribe Orders [facility] Vascular & Endovascular Surgery [address] [place] [address] Michael Vogel MD Venous (peripheral) insufficiency (Primary Dx); Varicose veins of both lower extremities with pain 11/25/2024 8:45 AM EDT Office Visit [facility] Podiatric Surgery [address] [phone] Carmelo, Floyd, DPM Diabetes mellitus with peripheral circulatory disorder (HCC) (Primary Dx); Ulcer of great toe, right, with fat layer exposed (HCC); Ulcerated, foot, right, with fat layer exposed (HCC) 11/25/2024 Refill [facility] Podiatric Surgery [address] [phone] Carmelo, Floyd, DPM Diabetes mellitus with peripheral circulatory disorder (HCC); Oral thrush 11/25/2024 Travel 11/18/2024 9:45 AM EDT [facility] [address] [phone] Carmelo, Floyd, DPM Diabetes mellitus with peripheral circulatory disorder (HCC) (Primary Dx); Ulcer of great toe, right, with fat layer exposed (HCC); Ulcerated, foot, right, with fat layer exposed (HCC) 11/18/2024 Travel 11/17/2024 Telephone [facility] Podiatric Surgery [address] [phone] Joan Lawson RN Other (Wound care supplies) 11/12/2024 Telephone [facility] Podiatric Surgery [address] [phone] Bebe Maya LPN Other (Supply order) 11/11/2024 10:00 AM EDT Office Visit [facility] Podiatric Surgery [address] [phone] Carmelo, Floyd, DPM Diabetes mellitus with peripheral circulatory disorder (HCC) (Primary Dx); Oral thrush; Ulcer of great toe, right, with fat layer exposed (HCC); Ulcerated, foot, right, with fat layer exposed (HCC) 11/11/2024 Travel 11/04/2024 10:00 AM EDT Office Visit [facility] Podiatric Surgery [address] [place] [phone] Carmelo, Floyd, DPM Diabetes mellitus with peripheral circulatory disorder (HCC) (Primary Dx); Ulcer of great toe, right, with fat layer exposed (HCC); Ulcerated, foot, right, with fat layer exposed (HCC) 11/04/2024 Telephone [facility] Podiatric Surgery [address] [place] [phone] Bebe Maya LPN 11/04/2024 Refill [facility] Podiatric Surgery [address] [place] [phone] Carmelo, Floyd, DPM Diabetes mellitus with peripheral circulatory disorder (HCC); Ulcerated, foot, right, with fat layer exposed (HCC) 11/04/2024 Telephone [facility] Vascular & Endovascular Surgery [address] [phone] Pamela Diego MD Other (Schedule appointment ) 11/04/2024 Travel 10/29/2024 8:30 AM EDT Office Visit [facility] Vascular & Endovascular Surgery [address] [place] [phone] Pamela Diego MD 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) (Primary Dx) 10/29/2024 8:00 AM EDT Ancillary Procedure [facility] [address] [place] [phone] Pamela Diego MD Atherosclerosis of [place]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 (HCC) 10/29/2024 Orders Only [facility] Vascular [facility] Endovascular Surgery [address] [place] [phone] Greer Ozuna MA Atherosclerosis of [place]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 (HCC) (Primary Dx) 10/28/2024 9:45 AM EDT Office Visit [facility] Podiatric Surgery [address] [phone] Carmelo, Floyd, DPM Diabetes mellitus with peripheral circulatory disorder (HCC) (Primary Dx); Ulcerated, foot, right, with fat layer exposed (HCC); Ulcer of great toe, right, with fat layer exposed (HCC) 10/28/2024 Travel 10/21/2024 9:00 AM EDT Office Visit [facility] Podiatric Surgery [address] [phone] Carmelo, Floyd, DPM Diabetes mellitus with peripheral circulatory disorder (HCC) (Primary Dx); Ulcerated, foot, right, with fat layer exposed (HCC); Ulcer of great toe, right, with fat layer exposed (HCC) 10/21/2024 Travel 10/14/2024 11:15 AM EDT Office Visit [facility] Podiatric Surgery [address] [phone] Carmelo, Floyd, DPM Diabetes mellitus with peripheral circulatory disorder (HCC) (Primary Dx); Ulcerated, foot, right, with fat layer exposed (HCC); Ulcer of great toe, right, with fat layer exposed (HCC) 10/14/2024 Travel 10/07/2024 Telephone [facility] Vascular & Endovascular Surgery [address] [phone] Pamela Diego MD 10/07/2024 Telephone [facility] [address] [place] [phone] Carmelo, Floyd, DPM Appointment 10/03/2024 7:56 AM EDT Anesthesia Event [facility] Perioperative Surgical Services [address] [place] [phone] Huey Harris MD Edison, Amanda C, PA-C 10/03/2024 7:30 AM EDT - 10/03/2024 11:30 AM EDT Surgery [facility] Perioperative Surgical Services [address] [place] [phone] Pamela Diego MD EV Aortogram Abdominal 10/01/2024 Travel 09/30/2024 11:50 PM EDT - 10/06/2024 2:51 PM EDT Hospital Encounter [facility] [address] [place] [address], [place] [phone] Arnulfo Barrios MD Marseille Mathieu, MD Дмитрий Mike Nicholas M, MD Sharma Kandel, Rajan, MD Singh, Gagan, MD Pervin, Ismat A, MD Boisjoli-Langlo is, Melissa, MD Stenosis of superficial femoral artery (Primary Dx); Ischemia; Occlusion of right femoral artery Discharge Disposition: Home or Self Care 09/30/2024 10:30 PM EDT Ancillary Procedure [facility] Radiology [address] [place] [phone] Provider, File Room 09/30/2024 10:25 PM EDT Ancillary Procedure [facility] Radiology [address] [place] [phone] Provider, File Room 09/30/2024 10:25 PM EDT Ancillary Procedure [facility] Radiology [address] [place] [phone] Provider, File Room 09/30/2024 Orders Only [facility] Radiology [address] [place] [phone] Provider, File Room from Last 3 Months Social History Tobacco Use Types Packs/Day Years Used Date Smoking Tobacco: Never Assessed [facility] Utilities Answer Date Recorded In the past 12 months has [employer], gas, oil, or water [facility] threatened to shut off services in your [...] any time in the past 12 m [facility], were you homeless or living in a [facility] (including now)? No 10/02/2024 Comments Unknown Sex and Gender Information Value Date Recorded Sex Assigned at Female 10/01/2024 3:34 AM EDT Legal Sex Female 9:47 PM EDT Gender Identity Female 10/01/2024 3:34 AM EDT Sexual Orientation Heterosexual (straight) 10/01 3:34 AM EDT Last Filed Vital Signs Vital Sign Reading Time Taken Comments Blood Pressure 140/86 10/29/2024 8:43 AM EDT Pulse 67 11/18/2024 9:31 AM EDT Temperature 36.2 C (97.1 F) 10/06/2024 11:42 AM EDT Respiratory Rate 18 10/06/2024 11:42 AM EDT Oxygen Saturation 98% 11/18/2024 9:31 AM EDT Inhaled Oxygen Concentration - - Weight 76.2 kg (168 lb) 11/25/2024 8:37 AM EDT Height 157.5 cm (5' 2 ) 11/25/2024 8:37 AM EDT Body Mass Index 30.73 11/25/2024 8:37 AM EDT Plan of Treatment Upcoming Encounters Date Type Department Care Team (Late st Contact Info) Description 12/08/2024 2:30 PM EDT Ancillary Procedure [facility] Vascular & Endovascular Surgery [address] [phone] Pamela Diego MD [address] [place] [phone] 12/08/2024 3:00 PM EDT Office Visit [facility] Vascular & Endovascular Surgery [address] [place] [phone] Mansoor Olivas MD [address] [place], [place] [phone] 12/16/2024 8:00 AM EDT Office Visit [facility] Podiatric Surgery [address] [place] [phone] Floyd Rhodes, DPM [address] [facility] [address] [place] [address] Health Maintenance Due Date Last Done Comments Hepatitis C Virus Screening 1960 Ophthalmology Exam 01/15/1970 HIV Screening 01/15/1973 Microalbumin/Creatinine Ratio Urine 01/15/1978 DTaP/Tdap/Td Vaccines (1 - Tdap) 01/15/1979 Pneumococcal Vaccines 50+ (1 of 2 - PCV) 01/15/1979 Pap Smear (Ages 21-65) 01/15/1981 Mammogram 2000 Colonoscopy 01/15/2005 Zoster (Shingles) Vaccine (1 of 2) 01/15/2010 RSV Vaccine 60 years and older and Patients (1 - Risk 60-74 years 1-dose series) 2020 Influenza Vaccine 09/26/2024 COVID-19 Vaccine ( - season) 2024 Hemoglobin A1C 04/03/2025 10/01/2024 Lipid Panel 10/01/2025 10/01/2024 Creatinine with GFR 10/06/2025 10/06/2024, 10/04/2024, 10/03/2024, Additional history exists Foot Exam 10/06/2025 10/06/2024, 09/26, 10/01/2024, Additional history exists Chronic Controlled Substance User PDMP Review Discontinued 09/30/2024 Hepatitis B Vaccines Aged Out No long er eligible based on patient's age to complete this topic Procedures Procedure Name Priority Date/Time Associated Diagnosis Comments VAS ARTERIAL LEG MULTI LEVEL PRESSURES-RIGHT Routine 10/29/2024 8:44 AM EDT Atherosclerosis of 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 (HCC) POCT GLUCOSE, FINGERSTICK (CHARGE) Routine 10/06/2024 12:06 PM EDT POCT GLUCOSE, FINGERSTICK (CHARGE) Routine 10/06/2024 8:17 AM EDT COMPREHENSIVE METABOLIC PANEL Routine 10/06/2024 6:55 AM EDT COMPLETE BLOOD COUNT, WITHOUT DIFFERENTIAL Routine 10/06/2024 6:55 AM EDT POCT GLUCOSE, FINGERSTICK (CHARGE) Routine 10/05/2024 9:01 PM EDT POCT GLUCOSE, FINGERSTICK (CHARGE) Routine 10/05/2024 4:58 PM EDT POCT GLUCOSE, FINGERSTICK (CHARGE) Routine 10/05/2024 12:13 PM EDT POCT GLUCOSE, FINGERSTICK (CHARGE) Routine 10/05/2024 8:28 AM EDT VANCOMYCIN LEVEL-RANDOM Timed 10/05/2024 7:21 AM EDT POCT GLUCOSE, FINGERSTICK (CHARGE) Routine 10/04/2024 8:57 PM EDT POCT GLUCOSE, FINGERSTICK (CHARGE) Routine 10/04/2024 4:34 PM EDT VAS VENOUS DUPLEX LEG VEIN MAPPING-BILATERAL Routine 10/04/2024 1:43 PM EDT VAS ARTERIAL DUPLEX LEG-UNILATERAL/LIMITED Routine 10/04/2024 1:43 PM EDT VAS ARTERIAL LEG MULTI LEVEL PRESSURES-BILATERAL Routine 10/04/2024 1:43 PM EDT POCT GLUCOSE, FINGERSTICK (CHARGE) Routine 10/04/2024 11:57 AM EDT POCT GLUCOSE, FINGERSTICK (CHARGE) Routine 10/04/2024 7:46 AM EDT MAGNESIUM Routine 10/04/2024 6:38 AM EDT BASIC METABOLIC PANEL Routine 10/04/2024 6:38 AM EDT COMPLETE BLOOD COUNT, WITHOUT DIFFERENTIAL Routine 10/04/2024 6:38 AM EDT POCT GLUCOSE, FINGERSTICK (CHARGE) Routine 10/03/2024 8:26 PM EDT POCT GLUCOSE, FINGERSTICK (CHARGE) Routine 10/03/2024 4:47 PM EDT POCT GLUCOSE, FINGERSTICK (CHARGE) Routine 10/03/2024 1:03 PM EDT POCT GLUCOSE, FINGERSTICK (CHARGE) Routine 10/03/2024 9:24 AM EDT ENDOVASCULAR PROCEDURE Routine 9:17 AM EDT Ischemia ENDOVASCULAR PROCEDURE Routine 9:17 AM EDT Ischemia POCT GLUCOSE, FINGERSTICK (CHARGE) Routine 10/03/2024 7:46 AM EDT VANCOMYCIN LEVEL-RANDOM Routine 10/03/2024 6:05 AM EDT HEPARIN ASSAY (ANTI-XA) STAT 10/03/2024 6:05 AM EDT MAGNESIUM Routine 10/03/2024 6:05 AM EDT BASIC METABOLIC PANEL Routine 10/03/2024 6:05 AM EDT COMPLETE BLOOD COUNT, WITHOUT DIFFERENTIAL Routine 10/03/2024 6:05 AM EDT POCT GLUCOSE, FINGERSTICK (CHARGE) Routine 10/03/2024 2:01 AM EDT POCT GLUCOSE, FINGERSTICK (CHARGE) Routine 10/02/2024 9:07 PM EDT POCT GLUCOSE, FINGERSTICK (CHARGE) Routine 10/02/2024 5:17 PM EDT POCT GLUCOSE, FINGERSTICK (CHARGE) Routine 10/02/2024 12:19 PM EDT TYPE AND SCREEN STAT 10/02/2024 11:53 AM EDT PREPARE RBC'S Routine 10/02/2024 11:06 AM EDT POCT GLUCOSE, FINGERSTICK (CHARGE) Routine 10/02/2024 9:44 AM EDT HEPARIN ASSAY (ANTI-XA) STAT 10/02/2024 8:19 AM EDT HEPARIN ASSAY (ANTI-XA) STAT 10/02/2024 2:50 AM EDT HEPARIN ASSAY (ANTI-XA) STAT 10/01/2024 7:37 PM EDT POCT GLUCOSE, FINGERSTICK (CHARGE) Routine 10/01/2024 5:26 PM EDT HEPARIN ASSAY (ANTI-XA) STAT 10/01/2024 12:02 PM EDT POCT GLUCOSE, FINGERSTICK (CHARGE) Routine 10/01/2024 11:37 AM EDT LACTIC ACID, PLASMA Routine 10/01/2024 1 0:38 AM EDT BASIC METABOLIC PANEL STAT 10/01/2024 10:38 AM EDT CREATININE WITH EGFR STAT 10/01/2024 9:03 AM EDT POCT GLUCOSE, FINGERSTICK (CHARGE) Routine 10/01/2024 7:34 AM EDT HEPARIN ASSAY (ANTI-XA) STAT 10/01/2024 4:19 AM EDT ECG 12-LEAD STAT 10/01/2024 12:44 AM EDT LIPID PANEL STAT 10/01/2024 12:35 AM EDT HEMOGLOBIN A1C WITH ESTIMATED AVERAGE GLUCOSE Routine 10/01/2024 12:35 AM EDT LACTIC ACID, PLASMA Routine 10/01/2024 1 2:35 AM EDT PARTIAL THROMBOPLASTIN TIME (PTT) STAT 10/01/2024 12:35 AM EDT PROTIME-INR STAT 10/01/2024 12:35 AM EDT COMPLETE BLOOD COUNT, WITHOUT DIFFERENTIAL STAT 10/01/2024 12:35 AM EDT POCT GLUCOSE, FINGERSTICK (CHARGE) Routine 10/01/2024 12:[address] ABDOMEN ARCHIVE FOR REFERENCE ONLY Routine 09/30/2024 10:23 PM EDT CR EXTREMITY RIGHT ARCHIVE FOR REFERENCE ONLY Routine 09/30/2024 10:[address] ABDOMEN ARCHIVE FOR REFERENCE ONLY Routine 09/30/2024 10:22 PM EDT from Last 3 Months Results * VAS ARTERIAL LEG MULTI LEVEL PRESSURES-RIGHT (10/29/2024 8:44 AM EDT) Only the most recent of2 resultswithin the time period is included. Anatomical Region Laterality Modality Ultrasound 10/29/2024 8:00 AM EDT Narrative 10/29/2024 9:47 AM EDT Table formatting from the original result was not included. Department: [facility] Vascular [place] Patient: [id number] (ISELA FRAUSTO) Patient Location: [facility] CPT Code: 02213 ICD-9: Referring Physician: Pamela Diego Impression RIGHT: Right ankle pulse volume recording and ankle brachial index are within normal limits. The JESI is 1.28. The right posterior tibial artery was non-compressible, which is consistent with calcification of the vessel. Findings are not consistent with significant arterial occlusive disease of the lower extremity. Compared to the previous study on 10/04/2024. the right JESI increased from 0.85 to 1.28. Indications Right Atherosclerosis [I70.0]. Clinical Examination Post Abdominal aortogram, right leg angiogram, right posterior tibial artery atherectomy and angioplasty Brachial Pressure: Right 138/Left 134 Findings: Segment Right Left Pressure JESI Pressure Brachial Artery 138 134 Dorsalis Pedis Artery 176 1.28 Posterior Tibial Artery NC Electronically Signed by: Pamela Diego on 2024-10-29 09:47:25 AM End of Report Procedure Note Pamela Diego MD - 10/29/2024 Department: [facility] Vascular [place] Patient: [id number] (ISELA FRAUSTO) Patient Location: [facility] CPT Code: 02212 ICD-9: Referring Physician: Pamela Diego Impression RIGHT: Right ankle pulse volume recording and ankle brachial index arewithin normal limits. The JESI is 1.28. The right posterior tibial arterywas non-compressible, which is consistent with calcification of thevessel. Findings are not consistent with significant arterial occlusivedisease of the lower extremity. Compared to the previous study on 10/04/2024. the right JESI increased from0.85 to 1.28. Indications Right Atherosclerosis [I70.0]. Clinical Examination Post Abdominal aortogram, right leg angiogram, right posterior tibialartery atherectomy and angioplasty Brachial Pressure: Right 138/Left 134 Findings: Segment Right Left Pressure JESI Pressure Brachial Artery 138 134 Dorsalis Pedis Artery 176 1.28 Posterior Tibial Artery NC Electronically Signed by: Pamela Diego on 2024-10-29 09:47:25 AM End of Report us Pamela Diego MD VASCULAR LAB ORDERABLES Final Result * (ABNORMAL) POCT Glucose, Fingerstick (10/06/2024 12:06 PM EDT) Only the most recent of24 resultswithin the time period is included. POC Glucose 148(H) 65 - 99 mg/dL 10/06/2024 12:13 PM EDT Blood specimen / Unknown 10/06/2024 12:06 PM EDT 10/06/2024 12:13 PM EDT us Arnulfo Barrios MD POINT OF CARE TEST ORDERABLES Final Result HOSPITAL LAB See Below * (ABNORMAL) Complete Blood Count WITHOUT Differential - STAT (10/06/2024 6:55 AM EDT) Only the most recent of4 resultswithin the time period is included. White Blood Cell Count 11.8(H) 4.0 - 11.0 Thou/uL 10/06/2024 7:23 AM [facility] Platelet Count 255 150 - 450 Thou/uL 10/06/2024 7:23 AM [facility] Hemoglobin 10.8(L) 11.7 - 15.7 g/dL 10/06/2024 7:23 AM [facility] Hematocrit 34.5(L) 35.0 - 47.0 % 10/06/2024 7:23 AM [facility] Red Blood Cell Count 3.83(L) 4.00 - 5.40 Mil/uL 10/06/2024 7:23 AM [facility] MCV 90 80 - 100 fL 10/06/2024 7:23 AM [facility] MCH 28.2 27.0 - 31.0 pg 10/06/2024 7:23 AM [facility] MCHC 31.3 30.0 - 36.0 g/dL 10/06/2024 7:23 AM [facility] RDW 17.2(H) 11.5 - 14.5 % 10/06/2024 7:23 AM [facility] MPV 10.3 7.5 - 12.5 fL 10/06/2024 7:23 AM [facility] Blood Blood specimen / Unknown 10/06/2024 6:55 AM EDT 10/06/2024 7:05 AM EDT us Tyrese Mart MD LAB BLOOD ORDERABLES Final Res ult [address] [address], [address] [address] * (ABNORMAL) Comprehensive Metabolic Panel (10/06/2024 6:55 AM EDT) Glucose 119(H) 65 - 99 mg/dL 10/06/2024 7:36 AM [facility] Comment:Fasting: <100 mg/dL, Non-Fasting: <200 mg/dL (ADA 2005) Blood Urea Nitrogen (BUN) 8 8 - 21 mg/dL 10/06/2024 7:36 AM [facility] Creatinine 0.9 0.4 - 1.1 mg/dL 10/06/2024 7:36 AM [facility] eGFR 71 >59 10/06/2024 7:36 AM [facility] Comment:CKD-EPI (2020) in mL /min/1.73 sq meters. Sodium 142 136 - 145 mmol/L 10/06/2024 7:36 AM [facility] Potassium 3.7 3.4 - 5.3 mmol/L 10/06/2024 7:36 AM [facility] Chloride 107 98 - 107 mmol/L 10/06/2024 7:36 AM [facility] CO2 24 22 - 33 mmol/L 10/06/2024 7:36 AM [facility] Calcium 8.6(L) 8.7 - 10.5 mg/dL 10/06/2024 7:36 AM [facility] Alkaline Phosphatase 73 32 - 122 U/L 10/06/2024 7:36 AM [facility] Aspartate Aminotrans (AST) 20 10 - 50 U/L 10/06/2024 7:36 AM [facility] Alanine Aminotrans (ALT) 15 10 - 50 U/L 10/06/2024 7:36 AM [facility] Bilirubin, Total 0.4 0.2 - 1.0 mg/dL 10/06/2024 7:36 AM [facility] Protein, Total 6.0(L) 6.3 - 8.3 g/dL 10/06/2024 7:36 AM [facility] Albumin 3.2(L) 3.4 - 4.8 g/dL 10/06/2024 7:36 AM [facility] BUN/Creatinine Ratio 9(L) 10.0 - 25.0 Ratio 10/06/2024 7:36 AM [facility] Globulin 2.8 1.5 - 3.9 g/dL 10/06/2024 7:36 AM [facility] Albumin/Globulin Ratio 1.1 1.0 - 3.0 Ratio 10/06/2024 7:36 AM [facility] Anion Gap 11 7 - 17 10/06/2024 7:36 AM [facility] Blood Blood specimen / Unknown 10/06/2024 6:55 AM EDT 10/06/2024 7:05 AM EDT us Tyrese Mart MD LAB BLOOD [place] [address], [address] [address] * Vancomycin Level, Random (10/05/2024 7:21 AM EDT) Only the most recent of2 resultswithin the time period is included. Vancomycin, Random 18 mg/L 10/05/2024 9:19 AM T [facility] Comment:No reference range e stablished for random levels. Time of Last Dose Information not given 10/04/2024 11:00 PM EDT [facility] Blood Blood specimen / Unknown 10/05/2024 7:21 AM EDT 10/05/2024 8:54 AM EDT us Tyrese Mart MD LAB BLOOD ORDERABLES Final Res ult [address] [address], [address] [address] * VAS VENOUS DUPLEX LEG VEIN MAPPING-BILATERAL (10/04/2024 1:43 PM EDT) Anatomical Region Laterality Modality Ultrasound 10/04/2024 11:1 5 AM EDT Narrative 10/04/2024 3:20 PM EDT Table formatting from the original result was not included. Department: [facility] Vascular Lab Patient: [id number] (FRAUSTO, ISELA) Patient Location: [facility] CPT Code: 06424 ICD-9: Referring Physician: JENNIE Fried Right lower extremity duplex ultrasound demonstrates a patent and continuous great saphenous vein from groin to ankle with diameter measurements of 7.8 mm to 2.8 mm. Left lower extremity duplex ultrasound demonstrates a patent and continuous great saphenous vein from groin to ankle with diameter measurements of 7.8 mm to 2.0 mm. Indications PreOperative Venous Mapping. Pre op vein mapping for arterial intervention. Findings: Right Diameter AP (mm) GSV Saphenofemoral junction 7.80 Mid GSV Thigh 3.80 GSV Knee 4.10 Great Saphenous Vein -Calf Mid 3.10 Great Saphenous Vein -Ankle 2.80 Left Diameter AP (mm) GSV Saphenofemoral junction 7.80 Mid GSV Thigh 2.60 GSV Knee 2.70 Great Saphenous Vein -Calf Mid 2.20 Great Saphenous Vein -Ankle 2.00 Electronically Signed by: Pamela Diego on 2024-10-04 03:20:48 PM End of Report Procedure Note Pamela Diego MD - 10/04/2024 Department: [facility] Vascular Lab Patient: [id number] (THUY FRAUSTOSY) Patient Location: [facility] CPT Code: 17873 ICD-9: Referring Physician: JENNIE CHAMBERS Impression Right lower extremity duplex ultrasound demonstrates a patent andcontinuous great saphenous vein from groin to ankle with diametermeasurements of 7.8 mm to 2.8 mm. Left lower extremity duplex ultrasound demonstrates a patent andcontinuous great saphenous vein from groin to ankle with diametermeasurements of 7.8 mm to 2.0 mm. Indications PreOperative Venous Mapping. Pre op vein mapping for arterial intervention. Findings: Right Diameter AP (mm) GSV Saphenofemoral junction 7.80 Mid GSV Thigh 3.80 GSV Knee 4.10 Great Saphenous Vein -Calf Mid 3.10 Great Saphenous Vein -Ankle 2.80 Left Diameter AP (mm) GSV Saphenofemoral junction 7.80 Mid GSV Thigh 2.60 GSV Knee 2.70 Great Saphenous Vein -Calf Mid 2.20 Great Saphenous Vein -Ankle 2.00 Electronically Signed by: Pamela Diego on 2024-10-04 03:20:48 PM End of Report us Jennie Chambers PA-C VASCULAR LAB ORDERABLES Final Result * Vas Arterial Duplex Leg-Limited Bilateral (10/04/2024 1:43 PM EDT) Anatomical Region Laterality Modality Ultrasound 10/04/2024 11:1 0 AM EDT Narrative 10/05/2024 1:09 PM EDT Table formatting from the original result was not included. Department: [facility] Vascular Lab Patient: [id number] (ISELA FRAUSTO) Patient Location: [facility] CPT Code: 41852 ICD-9: Referring Physician: PRABHU ALBA Impression Right: Duplex scan demonstrates normal doppler waveforms in the common femoral artery, not consistent with inflow disease. The proximal profunda artery is patent. The proximal superficial femoral artery and popliteal artery are patent with normal doppler waveforms. Increased diastolic flow is demonstrated. Left: Duplex scan demonstrates normal doppler waveforms in the common femoral artery, not consistent with inflow disease. The proximal profunda artery is patent. The proximal superficial femoral artery and popliteal artery are patent with normal doppler waveforms. See also, arterial leg pressures exam of today. No prior for comparison. Indications Atherosclerosis with Ulceration [I70.25]. Clinical Examination Post op right posterior tibial artery atherectomy and angioplasty. Findings: Segment Right Left PSV PSV [employer] APPRENTICE 129 146 PFA Prox 95 75 SFA Prox 101 89 Popliteal Artery Dist 80 46 Electronically Signed by: Dr. Fabio Diego MD, KATIE on 2024-10-05 01:09:21 PM End of Report Procedure Note Fabio Diego MD - 10/05/2024 Department: [facility] Vascular Lab Patient: [id number] (ISELA FRAUSTO) Patient Location: [facility] CPT Code: 59088 ICD-9: Referring Physician: PRABHU ALBA Impression Right: Duplex scan demonstrates normal doppler waveforms in the common femoralartery, not consistent with inflow disease. The proximal profunda arteryis patent. The proximal superficial femoral artery and popliteal arteryare patent with normal doppler waveforms. Increased diastolic flow isdemonstrated. Left: Duplex scan demonstrates normal doppler waveforms in the common femoralartery, not consistent with inflow disease. The proximal profunda arteryis patent. The proximal superficial femoral artery and popliteal arteryare patent with normal doppler waveforms. See also, arterial leg pressures exam of today. No prior for comparison. Indications Atherosclerosis with Ulceration [I70.25]. Clinical Examination Post op right posterior tibial artery atherectomy and angioplasty. Findings: Segment Right Left PSV PSV [employer]PRENTICE 129 146 PFA Prox 95 75 SFA Prox 101 89 Popliteal Artery Dist 80 46 Electronically Signed by: Dr. Fabio Diego MD, KATIE on 2024-10-05 01:09:21PM End of Report us Prabhu Alba MD VASCULAR LAB O RDERABLES Final Result * Magnesium (10/04/2024 6:38 AM EDT) Only the most recent of2 resultswithin the time period is included. Magnesium 1.9 1.6 - 2.7 mg/dL 10/04/2024 7:52 AM EDT [facility] Blood Blood specimen / Unknown 10/04/2024 6:38 AM EDT 10/04/2024 7:22 AM EDT us Jennie Chambers PA-C LAB BLOOD ORDERABLES Final Res ult [facility] [address] [place] [address], [facility] [address] [place] [address] * (ABNORMAL) Basic Metabolic Panel (10/04/2024 6:38 AM EDT) Only the most recent of3 resultswithin the time period is included. Pathologist [facility] [place] Glucose 101(H) 65 - 99 mg/dL 10/04/2024 7:52 AM [facility] Comment:Fasting: <100 mg/dL, Non-Fasting: <200 mg/dL (ADA 2004) Blood Urea Nitrogen (BUN) 4(L) 8 - 21 mg/dL 10/04/2024 7:52 AM [facility] Creatinine 0.8 0.4 - 1.1 mg/dL 10/04/2024 7:52 AM [facility] eGFR 82 >59 10/04/2024 7:52 AM [facility] Comment:CKD-EPI (2020) in mL /min/1.73 sq meters. Sodium 141 136 - 145 mmol/L 10/04/2024 7:52 AM [facility] Potassium 4.1 3.4 - 5.3 mmol/L 10/04/2024 7:52 AM [facility] Chloride 105 98 - 107 mmol/L 10/04/2024 7:52 AM [facility] CO2 24 22 - 33 mmol/L 10/04/2024 7:52 AM [facility] Anion Gap 12 7 - 17 10/04/2024 7:52 AM [facility] Calcium 9.2 8.7 - 10.5 mg/dL 10/04/2024 7:52 AM [facility] BUN/Creatinine Ratio 5(L) 10.0 - 25.0 Ratio 10/04/2024 7:52 AM [facility] Blood Blood specimen / Unknown 10/04/2024 6:38 AM EDT 10/04/2024 7:22 AM EDT Jennie Chambers PA-C LAB BLOOD ORDERABLES Final Res ult Performing Organization Address City/[facility]/ZIP Co de Phone Number [address] [address], [address] [address] * AORTOGRAM- ABDOMINAL, HULLER OPERATOR FEMORAL/POPLITEAL 1ST VESSEL W/STENT (10/03/2024 9:17 AM EDT) Anatomical Region Laterality Modality Other Narrative 10/03/2024 1:23 PM EDT This study has been auto finalized please see the Notes tabs in Chart Review for final documentation. Pamela Diego MD CV ENDOVASCULAR ORDERABLES Fin al Result * Heparin Assay (Anti-Xa) (10/03/2024 6:05 AM EDT) Only the most recent of6 resultswithin the time period is included. Anti Xa 0.80 IU/mL 10/03/2024 6:53 AM EDT [facility] Comment: (NOTE) Heparin Thromboembolic/Standard/Full Dose Protocol: Therapeutic Range: Age 18+: 0.30 - 0.70 IU/mL Age 0 - 17: 0.35 - 0.70 IU/mL Heparin Cardiac/Low Dose Protocol: Therapeutic Range: 0.30 - 0.50 IU/mL Low Molecular Weight Heparin: Therapeutic Range: Age 18+: 0.50 - 1.09 IU/mL for twice daily dosing (or adjusted to daily for poor renal function) Age 18+: 1.00 - 2.00 IU/mL for once daily dosing Age 0-17: 0.50 - 1.00 IU/mL Anticoagulant IV HEPARIN, UNFRACTIONATED 10/02/2024 11:00 PM EDT [facility] Blood Blood specimen / Unknown 10/03/2024 6:05 AM EDT 10/03/2024 6:37 AM EDT Tony Sylvester MD LAB BLOOD ORDERABLES Final Resu lt [address] [address], [place] [address] * Type and Screen (10/02/2024 11:53 AM EDT) ABO/Rh A POSITIVE 10/02/2024 1:57 PM EDT [facility] Antibody Screen NEGATIVE 1:57 PM EDT [facility] Specimen Expiration 10/05/2024 10/02/2024 1:57 PM EDT [facility] Unit Number [id number] 10/02/2024 2:25 PM EDT [facility] Blood Component Type LEUKOREDUCED RED CELLS 10/02/2024 2:25 PM EDT [facility] Unit Division 00 10/02/2024 2:25 PM EDT [facility] Unit Status REL FROM ALLOC 5:46 PM EDT [facility] Transfusion Status OK TO TRANSFUSE 10/02/2024 2:25 PM EDT [facility] Crossmatch Result COMPATIBLE 10/02/2024 2:25 PM EDT [facility] Blood Blood specimen / Unknown 10/02/2024 11:53 AM EDT 10/02/2024 12:53 PM EDT Comment:Blood Faith BARBER-C BLOOD BANK TEST ORDERABLES Fin al Result [place] [address] * Prepare RBC's:Prepare in: Units; Number of Units: 1; Transfusion Indications: Hemoglobin less than 7 gm/dl or HCT less than 21% (10/02/2024 11:06 AM EDT) Units Ordered 1 10/02/2024 11:05 AM EDT 10/02/2024 11:0 6 AM EDT 10/02/2024 2:22 PM EDT [employer]way[employer] PA-C BLOOD BANK PRODUCT ORDERABLES Final Result HOSPITAL LAB See Below * Lactic Acid, Plasma (Routine) (10/01/2024 10:38 AM EDT) Only the most recent of2 resultswithin the time period is included. Lactic Acid 1.4 0.5 - 1.9 mmol/L 10/01/2024 11:59 AM EDT [facility] Blood Blood specimen / Unknown 10/01/2024 10:38 AM EDT 10/01/2024 11:19 AM EDT Estrada Choe MD LAB BLOOD ORDERABLES Final Result Performing Organization Address [facility] [place] [address], [place] [address] * Creatinine with eGFR (10/01/2024 9:03 AM EDT) Creatinine 0.7 0.4 - 1.1 mg/dL 10/01/2024 10:26 AM EDT [facility] eGFR >90 >59 10/01/2024 10:26 AM EDT [facility] Comment:CKD-EPI (2020) in mL /min/1.73 sq meters. Blood Blood specimen / Unknown 10/01/2024 9:03 AM EDT 10/01/2024 9:53 AM EDT Prabhu Alba MD LAB BLOOD JASON TAYLOR Final Result Performing Organization Address City/[facility]/[place] [address], [place] [address] * ECG 12 lead (10/01/2024 12:44 AM EDT) Ventricular rate 77 BPM EKG [facility] Atrial rate 77 BPM EKG [facility] P-R interval 136 ms EKG [facility] QRS duration 72 ms EKG [facility] Q-T interval 372 ms EKG [facility] QTC calculation (Bazett) 421 ms EKG [facility] P axis 36 degrees EKG [facility] R axis 27 [facility] T [facility] 32 [facility] 10/01/2024 12:4 4 AM EDT Narrative EKG [facility] - 10/01/2024 5:17 PM EDT Normal sinus rhythm with sinus arrhythmia Normal ECG No previous ECGs available Confirmed by MD Galicia Mohammed ([id number]) on 10/01/2024 5:17:41 PM Procedure Note Rafa Galicia MD - 10/01/2024 Normal sinus rhythm with sinus arrhythmia Normal ECG No previous ECGs available Confirmed by MD Galicia Mohammed ([id number]) on 10/01/2024 5:17:41 PM us Arnulfo Barrios MD ECG ORDERABLES Final Result Performing Organization Address City/[facility]/ZIP Co de Phone Number [facility] * (ABNORMAL) Hemoglobin A1C with Estimated Average Glucose (10/01/2024 12:35 AM EDT) Hemoglobin A1C 7.0(H) <5.7 % 10/01/2024 2:51 AM EDT [facility] Comment: A1c% Interpretation 5.7 - 6.0 Increase risk of diabetes 6.1 - 6.4 Higher risk of diabetes > or = 6.5 Consistent with diabetes Diabetes Care, 33(Supp 1):S1-S61, 2010 Estimated Average Glucose 154 mg/dL 10/01/2024 2:51 AM EDT [facility] Blood specimen / Unknown 10/01/2024 12:35 AM EDT 10/01/2024 12:52 AM EDT us Arnulfo Barrios MD LAB BLOOD ORDERABLES Final Re sult [address] [address], [address] [address] * (ABNORMAL) Partial Thromboplastin Time (PTT) (10/01/2024 12:35 AM EDT) Anticoagulant IV HEPARIN, UNFRACTIONATED 10/01/2024 12:08 AM EDT [facility] Partial Thromboplastin Time (PTT) >240(HH) 25 - 36 seconds 10/01/2024 1:27 AM EDT [facility] Blood Blood specimen / Unknown 10/01/2024 12:35 AM EDT 10/01/2024 12:52 AM EDT us Arnulfo Barrios MD LAB BLOOD ORDERABLES Final Re sult Performing Organization Address [facility] Co de Phone Number [address] [address], [address] [address] * Protime-INR (10/01/2024 12:35 AM EDT) Anticoagulant IV HEPARIN, UNFRACTIONATED 10/01/2024 12:08 AM EDT [facility] Prothrombin Time (PT) 11.8 10.0 - 13.5 seconds 10/01/2024 1:27 AM EDT [facility] INR 1.0 10/01/2024 1:27 AM EDT [facility] Comment:INR Therapeutic Rang es: Standard dose anticoagulant 2.0 to 3.0, High dose anticoagulant 2.5-3.5. Blood Blood specimen / Unknown 10/01/2024 12:35 AM EDT 10/01/2024 12:52 AM EDT us Arnulfo Barrios MD LAB BLOOD ORDERABLES Final Re sult [address] [address], [address] [address] * LIPID PANEL (10/01/2024 12:35 AM EDT) [facility] Cholesterol, Total 173 <200 mg/dL 2024 3:24 AM EDT [facility] Triglycerides 104 <150 mg/dL 10/01/2024 3:24 AM EDT [facility] Cholesterol, HDL 52 >39 mg/dL 10/02/19 3:24 AM EDT [facility] Estimated LDL 100 <130 mg/dL 10/01/2024 3:24 AM EDT [facility] Comment: NCEP Guidelines: < 100 mg/dL Optimal 100 - 129 mg/dL Near Optimal/Above Optimal 130 - 159 mg/dL Borderline High 160 - 189 mg/dL High >/= 190 mg/dL Very High Cholesterol/HDL Ratio 3.3 0.0 - 5.0 Ratio 10/01/2024 3:24 AM EDT [facility] Comment: Relative Risk Ratio - Male Ratio - Female 0.5 3.4 3.3 1.0 5.0 4.4 2.0 9.6 7.1 3.0 23.4 11.0 10/01/2024 12:3 5 AM EDT 10/01/2024 12:52 AM EDT Arnulfo Barrios MD LAB BLOOD ORDERABLES Final Re sult Performing Organization Address [facility] de Phone Number [address] [address], [address] [address] * CT Abdomen Archive for Reference Only (09/30/2024 10:23 PM EDT) Only the most recent of2 resultswithin the time period is included. Narrative [place] - 09/30/2024 10:23 PM EDT This study has been auto finalized and does not contain a result. us File Room Provider IMG DIGITIZE FILMS Final Resu lt Performing Organization Address [facility] Co de Phone Number [place] [phone] * CR Extremity Right Archive for Reference only (09/30/2024 10:22 PM EDT) Narrative [place] - 09/30/2024 10:22 PM EDT This study has been auto finalized and does not contain a result. us File Room Provider IMG DIGITIZE FILMS Final Resu lt Performing Organization Address [facility] Co de Phone Number [place] [phone] from Last 3 Months Insurance [facility] Member Subscriber Plan / Payer (Ef fective Through 12/26/2024) Name:Jett Isela Luisa Relation to Subscriber:Self Name:Jett Isela M Payer ID:Not on file Group ID:Not on file Type:Not on file Address: [address] [place], [place] [address] on file [facility] Advance Directives * Full Code (Latest Code Status on File) Date Activated Date Inactivated Comments 10/03/2024 9:42 AM * Full Code Date Activated Date Inactivated Comments 10/01/2024 2:32 AM 10/03/2024 9:42 AM Question Answer Comments Decision Thoroughly Discussed with: Patient Care Teams Logging Supervisor Relationship Specialty Start Date End Date Michael Vogel MD [address] [place] [address] Dr Gotti [address] [place] [address], [place] [id number] PCP - General Internal Medicine 10/01/24 Pamela Diego MD [address] [place] [id number] Surgery, Vascular 10/21/24
--- OUTSIDE RECORDS SUMMARY | 2024-12-08 09:57 | XMS_ITS | Clinical Summary ---
Author Organization [facility] Address [address] [place] [address] Phone Care Team Providers Care Meter Shop Supervisor Name Role Phone Michael Vogel MD Primary Care Provider [phone] Social History Tobacco Use Types Packs/Day Years Used Date Smoking Tobacco: Never Assessed Education Answer Date Recorded Are you interested in more education? Not on jaime e 04/03/2024 Are you concerned about learning? Not on file 04/03/2024 No 04/03/2024 No 04/03/2024 Digital Access Answer Date Recorded No 04/03/2024 No 04/03/2024 Reliable internet access at home? Not on file 04/03/2024 Device with a working camera? Not on file Comments Unknown Sex and Gender Information Value Date Recorded Sex Assigned at Not on file Legal Sex Female 8:09 AM EST Gender Identity Not on file Sexual Orientation Not on file Plan of Treatment Health Maintenance Due Date Last Done Comments Adult Td,Tdap Booster 1960 LIPID PANEL 1960 DEPRESSION SCREENING 1972 SMOKING Hx and SMOKELESS TOB ACCO SCREENING 01/15/1973 HEPATITIS C SCREENING 01/15/1978 HIV ONE-TIME SCREENING (18-6 5 YEARS) 01/15/1978 PAP SMEAR 01/15/1981 MAMMOGRAM 2000 COLOGUARD 01/15/2005 COLONOSCOPY 01/15/2005 COLORECTAL CANCER SCREENING 01/15/2005 FIT TEST 01/15/2005 FOBT 01/15/2005 SIGMOIDOSCOPY 01/15/2005 VIRTUAL COLONOSCOPY 01/15/2005 PNEUMOCOCCAL VACCINES (50+ y ears) (1 of 1 - PCV) 01/15/2010 ZOSTER VACCINES (1 of 2) 01/15/2010 INFLUENZA VACCINE (#1) 2024 COVID-19 VACCINE ( - 2024-2 6 season) 2024 RSV VACCINE (1 - 1-dose 75+ series) 01/15/2035 HEPATITIS A VACCINES Aged Out No long er eligible based on patient's age to complete this topic HIB VACCINES Aged Out No longer eligi ble based on patient's age to complete this topic MENINGOCOCCAL VACCINES (ACWY) Aged Out No longer eligible based on patient's age to complete this topic MENINGOCOCCAL VACCINES (B) Aged Out N o longer eligible based on patient's age to complete this topic Medical Devices Not on file Insurance [facility] [place] [facility] [place] [facility] Care Teams Meter Shop Supervisor Relationship Specialty Start Date End Date Michael Vogel MD [address] [place] [address] Dr [place] [address] PCP - General Internal Medicine 01/10/24 Additional Source Comments The information contained in this document represents components of the legal health record. It is not the complete legal health record.[facility]
--- OUTSIDE RECORDS SUMMARY | 2024-12-08 09:57 | XMS_ITS | Encounter Summary ---
Author Organization [facility] Address [address] [place] [address] Care Team Providers Care Heel Seater Name Role Phone Michael Vogel MD Primary Care Provider [phone] Pamela Diego MD Unavailable [phone] Reason for Visit * Reason Onset Date Comments Appointment 10/07/2024 Encounter Details Date Type Department Care Team (Late st Contact Info) Description 10/07/2024 Telephone [facility] [address] [place] [phone] Floyd Rhodes, AFUA [address] [facility] [address] [place] [address] Appointment Social History Tobacco Use Types Packs/Day Years Used Date Smoking Tobacco: Never Assessed [facility] Utilities Answer Date Recorded In the past 12 months has [employer], gas, oil, or water [employer] threatened to shut off services in your [...] medical appointments or from getting medications? No 08/0 08/2024 In the past 12 months, has [...] any time in the past 12 m [facility], were you homeless or living in a senior living (including now)? No 10/02/2024 Comments Unknown Sex [...] Description 12/08/2024 2:30 PM EDT Ancillary Procedure [facility] Vascular & Endovascular Surgery [address] [phone] Pamela Diego MD [address] [id number] 12/08/2024 3:00 PM EDT Office Visit [facility] Vascular & Endovascular Surgery [address] [phone] Mansoor Olivas MD [address] [place] [address] 12/16/2024 8:00 AM EDT Office Visit [facility] Podiatric Surgery [address] [phone] Floyd Rhodes, AFUA [address] [facility] [address] [place] [phone] documented as of this encounter Visit Diagnoses Not on filedocumented in this encounter Care Teams Heel Seater Relationship Specialty Start Date End Date Michael Vogel MD [address] [place] [address] [facility] [address] [place] [address] PCP - General Internal Medicine 10/01/24 Pamela Diego MD [address] [place] [address] Surgery, Vascular 10/21/24 documented as of this encounter
--- OUTSIDE RECORDS SUMMARY | 2024-12-08 09:57 | XMS_ITS ---
Author Name [facility] Organization Unknown Results Test Name/Text Value Interpretation Date Range Source POC Glucose 148.0 mg/dL Above high normal 10/06/2024 65 - 99 HHCCT POC Glucose 126.0 mg/dL Above high normal 10/06/2024 65 - 99 HHCCT ALP SerPl-cCnc 73.0 U/L 10/06/2024 32 - 122 HHCC T Glucose SerPl-mCnc 119.0 mg/dL Above high normal 10/06/2024 65 - 99 HHCCT Potassium SerPl-sCnc 3.7 mmol/L 10/06/2024 3.4 - 5.3 HHCCT Sodium SerPl-sCnc 142.0 mmol/L 10/06/2024 136 - 14 5 HHCCT Albumin/Glob SerPl 1.1 Ratio 10/06/2024 1 - 3 HHCCT Globulin Ser Calc-mCnc 2.8 g/dL 10/06/2024 1.5 - 3.9 HHCCT Prot SerPl-mCnc 6.0 g/dL Below low normal 10/06/2024 6.3 - 8.3 HHCCT ALT SerPl-cCnc 15.0 U/L 10/06/2024 10 - 50 [facility] T AST SerPl-cCnc 20.0 U/L 10/06/2024 10 - 50 [facility] T BUN/Creat SerPl 9.0 Ratio Below low normal 10/06/2024 10 - 2 5 HHCCT CO2 SerPl-sCnc 24.0 mmol/L 10/06/2024 22 - 33 HH CCT BUN SerPl-mCnc 8.0 mg/dL 10/06/2024 8 - 21 HHCC T Chloride SerPl-sCnc 107.0 mmol/L 10/06/2024 98 - 1 07 HHCCT Creat SerPl-mCnc 0.9 mg/dL 10/06/2024 0.4 - 1.1 HH CCT Anion Gap Bld-sCnc 11.0 10/06/2024 7 - 17 HHCCT Calcium SerPl-mCnc 8.6 mg/dL Below low normal 10/06/2024 8.7 - 10.5 HHCCT Albumin SerPl-mCnc 3.2 g/dL Below low normal 10/06/2024 3.4 - 4.8 HHCCT Bilirub SerPl-mCnc 0.4 mg/dL 10/06/2024 0.2 - 1 HHCCT GFR/BSA.pred SerPlBld [id number] 71.0 10/06/2024 59 - HHCCT MCH RBC Qn Auto 28.2 pg 10/06/2024 27 - [address] Hgb Bld-mCnc 10.8 g/dL Below low normal 10/06/2024 11.7 - 15 .7 HHCCT MCV RBC Auto 90.0 fL 10/06/2024 80 - 100 HHCCT MCHC RBC Auto-mCnc 31.3 g/dL 10/06/2024 30 - 36 HHCCT Platelet num Bld Auto 255.0 Thou/uL 10/06/2024 150 - 450 HHCCT Hct VFr Bld Auto 34.5 % Below low normal 10/06/2024 35 - 47 HHCCT WBC num Bld Auto 11.8 Thou/uL Above high normal 10/06/2024 4 - 11 HHCCT PMV Bld Auto 10.3 fL 10/06/2024 7.5 - 12.5 HHCCT RDW RBC Auto-Rto 17.2 % Above high normal 10/06/2024 11.5 - 14.5 HHCCT RBC num Bld Auto 3.83 Mil/uL Below low normal 10/06/2024 4 - 5.4 HHCCT POC Glucose 131.0 mg/dL Above high normal 10/06/2024 65 - 99 HHCCT POC Glucose 156.0 mg/dL Above high normal 10/05/2024 65 - 99 HHCCT POC Glucose 138.0 mg/dL Above high normal 10/05/2024 65 - 99 HHCCT POC Glucose 115.0 mg/dL Above high normal 10/05/2024 65 - 99 HHCCT Vancomycin SerPl-mCnc 18.0 mg/L 10/05/2024 HHCCT Time of last dose Information not given 10/05/2024 HHCCT POC Glucose 158.0 mg/dL Above high normal 10/05/2024 65 - 99 HHCCT POC Glucose 139.0 mg/dL Above high normal 10/04/2024 65 - 99 HHCCT POC Glucose 181.0 mg/dL Above high normal 10/04/2024 65 - 99 HHCCT POC Glucose 100.0 mg/dL Above high normal 10/04/2024 65 - 99 HHCCT Magnesium SerPl-mCnc 1.9 mg/dL 10/04/2024 1.6 - 2.7 HHCCT Potassium SerPl-sCnc 4.1 mmol/L 10/04/2024 3.4 - 5.3 HHCCT Anion Gap Bld-sCnc 12.0 10/04/2024 7 - 17 HHCCT Glucose SerPl-mCnc 101.0 mg/dL Above high normal 10/04/2024 65 - 99 HHCCT Chloride SerPl-sCnc 105.0 mmol/L 10/04/2024 98 - 1 07 HHCCT Calcium SerPl-mCnc 9.2 mg/dL 10/04/2024 8.7 - 10.5 HHCCT CO2 SerPl-sCnc 24.0 mmol/L 10/04/2024 22 - 33 HH CCT GFR/BSA.pred SerPlBld [id number] 82.0 10/04/2024 59 - HHCCT Sodium SerPl-sCnc 141.0 mmol/L 10/04/2024 136 - 14 5 HHCCT BUN SerPl-mCnc 4.0 mg/dL Below low normal 10/04/2024 8 - 21 HHCCT BUN/Creat SerPl 5.0 Ratio Below low normal 10/04/2024 10 - 2 5 HHCCT Creat SerPl-mCnc 0.8 mg/dL 10/04/2024 0.4 - 1.1 HH CCT RDW RBC Auto-Rto 17.2 % Above high normal 10/04/2024 11.5 - 14.5 HHCCT Hct VFr Bld Auto 37.0 % 10/04/2024 35 - 47 HH CCT RBC num Bld Auto 4.08 Mil/uL 10/04/2024 4 - 5.4 HHCCT MCV RBC Auto 91.0 fL 10/04/2024 80 - 100 HHCCT Hgb Bld-mCnc 11.7 g/dL 10/04/2024 11.7 - 15.7 HHCC T MCHC RBC Auto-mCnc 31.6 g/dL 10/04/2024 30 - 36 HHCCT PMV Bld Auto 10.6 fL 10/04/2024 7.5 - 12.5 HHCCT Platelet num Bld Auto 305.0 Thou/uL 10/04/2024 150 - 450 HHCCT MCH RBC Qn Auto 28.7 pg 10/04/2024 27 - [address] WBC num Bld Auto 12.9 Thou/uL Above high normal 10/04/2024 4 - 11 HHCCT POC Glucose 134.0 mg/dL Above high normal 10/04/2024 65 - 99 HHCCT POC Glucose 131.0 mg/dL Above high normal 10/03/2024 65 - 99 HHCCT POC Glucose 131.0 mg/dL Above high normal 10/03/2024 65 - 99 HHCCT POC Glucose 109.0 mg/dL Above high normal 10/03/2024 65 - 99 HHCCT POC Glucose 132.0 mg/dL Above high normal 10/03/2024 65 - 99 HHCCT Magnesium SerPl-mCnc 1.7 mg/dL 10/03/2024 1.6 - 2.7 HHCCT Calcium SerPl-mCnc 8.6 mg/dL Below low normal 10/03/2024 8.7 - 10.5 HHCCT Creat SerPl-mCnc 0.7 mg/dL 10/03/2024 0.4 - 1.1 HH CCT Glucose SerPl-mCnc 123.0 mg/dL Above high normal 10/03/2024 65 - 99 HHCCT BUN/Creat SerPl 6.0 Ratio Below low normal 10/03/2024 10 - 2 5 HHCCT GFR/BSA.pred SerPlBld [id number] >90.0 10/03/2024 59 - HHCCT Sodium SerPl-sCnc 143.0 mmol/L 10/03/2024 136 - 14 5 HHCCT CO2 SerPl-sCnc 24.0 mmol/L 10/03/2024 22 - 33 HH CCT Chloride SerPl-sCnc 107.0 mmol/L 10/03/2024 98 - 1 07 HHCCT BUN SerPl-mCnc 4.0 mg/dL Below low normal 10/03/2024 8 - 21 HHCCT Anion Gap Bld-sCnc 12.0 10/03/2024 7 - 17 HHCCT Potassium SerPl-sCnc 3.8 mmol/L 10/03/2024 3.4 - 5.3 HHCCT Vancomycin SerPl-mCnc 29.0 mg/L 10/03/2024 HHCCT Time of last dose Information not given 10/03/2024 HHCCT LMWH PPP [employer] Operator-aCnc 0.8 IU/mL 10/03/2024 HHCCT Anticoagulant IV HEPARIN, UNFRACTIONATED 10/03/2024 HHCCT MCH RBC Qn Auto 28.7 pg 10/03/2024 27 - [address] MCHC RBC Auto-mCnc 32.5 g/dL 10/03/2024 30 - 36 HHCCT Hct VFr Bld Auto 32.6 % Below low normal 10/03/2024 35 - 47 HHCCT PMV Bld Auto 10.5 fL 10/03/2024 7.5 - 12.5 HHCCT RDW RBC Auto-Rto 17.0 % Above high normal 10/03/2024 11.5 - 14.5 HHCCT RBC num Bld Auto 3.69 Mil/uL Below low normal 10/03/2024 4 - 5.4 HHCCT Platelet num Bld Auto 253.0 Thou/uL 10/03/2024 150 - 450 HHCCT Hgb Bld-mCnc 10.6 g/dL Below low normal 10/03/2024 11.7 - 15 .7 HHCCT WBC num Bld Auto 11.3 Thou/uL Above high normal 10/03/2024 4 - 11 HHCCT MCV RBC Auto 88.0 fL 10/03/2024 80 - 100 HHCCT POC Glucose 136.0 mg/dL Above high normal 10/03/2024 65 - 99 HHCCT POC Glucose 115.0 mg/dL Above high normal 10/03/2024 65 - 99 CCT POC Glucose 154.0 mg/dL Above high normal 10/02/2024 65 - 99 CCT POC Glucose 165.0 mg/dL Above high normal 10/02/2024 65 - 99 CCT POC Glucose 128.0 mg/dL Above high normal 10/02/2024 65 - 99 CCT LMWH PPP [place] Operator-aCnc 0.68 IU/mL 10/02/2024 CCT Anticoagulant IV HEPARIN, UNFRACTIONATED 10/02/2024 CCT LMWH PPP [place] [place] Operator-aCnc 0.67 IU/mL 10/02/2024 CCT Anticoagulant IV HEPARIN, UNFRACTIONATED 10/02/2024 CCT LMWH PPP [place] [place] Operator-aCnc 0.17 IU/mL 10/02/2024 CCT Anticoagulant HEPARIN, LOW MOLECULAR WEIGHT 10/01/2024 [facility] Glucose 147.0 mg/dL Above high normal 10/01/2024 65 99 CCT LMWH PPP [place] Operator-aCnc 0.2 IU/mL 10/01/2024 CCT Anticoagulant IV HEPARIN, UNFRACTIONATED 10/01/2024 CCT POC Glucose 165.0 mg/dL Above high normal 10/01/2024 65 99 CCT Lactate SerPl-sCnc 1.4 mmol/L 10/01/2024 0.5 - 1.9 HHCCT BUN/Creat SerPl 15.0 Ratio 10/01/2024 10 - 25 HH CCT Chloride SerPl-sCnc 107.0 mmol/L 10/01/2024 98 - 1 07 HHCCT Potassium SerPl-sCnc 3.5 mmol/L 10/01/2024 3.4 - 5.3 HHCCT Creat SerPl-mCnc 0.6 mg/dL 10/01/2024 0.4 - 1.1 HH CCT GFR/BSA.pred SerPlBld [id number] >90.0 10/01/2024 59 - HHCCT BUN SerPl-mCnc 9.0 mg/dL 10/01/2024 8 - 21 HHCC T Glucose SerPl-mCnc 112.0 mg/dL Above high normal 10/01/2024 65 - 99 HHCCT Anion Gap Bld-sCnc 12.0 10/01/2024 7 - 17 HHCCT Sodium SerPl-sCnc 143.0 mmol/L 10/01/2024 136 - 14 5 HHCCT CO2 SerPl-sCnc 24.0 mmol/L 10/01/2024 22 - 33 HH CCT Calcium SerPl-mCnc 8.4 mg/dL Below low normal 10/01/2024 8.7 - 10.5 HHCCT GFR/BSA.pred SerPlBld [id number] >90.0 10/01/2024 59 - HHCCT Creat SerPl-mCnc 0.7 mg/dL 10/01/2024 0.4 - 1.1 HH CCT POC Glucose 132.0 mg/dL Above high normal 10/01/2024 65 - 99 HHCCT LMWH PPP [place] [place] [place] Operator-aCnc 1.03 IU/mL 10/01/2024 HHCCT Anticoagulant IV HEPARIN, UNFRACTIONATED 10/01/2024 HHCCT LDLc SerPl Calc-mCnc 100.0 mg/dL 10/01/2024 - 130 HHCCT Trigl SerPl-mCnc 104.0 mg/dL 10/01/2024 - 150 HHCCT HDLc SerPl-mCnc 52.0 mg/dL 10/01/2024 39 - HH CCT HDLc SerPl 3.3 Ratio 10/01/2024 0 - 5 HHCCT Cholest SerPl-mCnc 173.0 mg/dL 10/01/2024 - 200 HHCCT Hgb A1c MFr Bld 7.0 % Above high normal 10/01/2024 - 5.7 HHCCT Est. average glucose Bld gHb Est-mCnc 154.0 mg/dL 10/01/2024 HHCCT INR PPP 1.0 10/01/2024 HHCCT Prothrombin time 11.8 seconds 10/01/2024 10 - 13.5 HHCCT Anticoagulant IV HEPARIN, UNFRACTIONATED 10/01/2024 HHCCT aPTT PPP >240.0 seconds Critically high 10/01/2024 25 - 36 HHCCT Anticoagulant IV HEPARIN, UNFRACTIONATED 10/01/2024 HHCCT Lactate SerPl-sCnc 2.1 mmol/L Above high normal 10/01/2024 0 .5 - 1.9 HHCCT RDW RBC Auto-Rto 17.0 % Above high normal 10/01/2024 11.5 - 14.5 HHCCT WBC num Bld Auto 11.9 Thou/uL Above high normal 10/01/2024 4 - 11 HHCCT Hgb Bld-mCnc 10.5 g/dL Below low normal 10/01/2024 11.7 - 15 .7 HHCCT Hct VFr Bld Auto 33.3 % Below low normal 10/01/2024 35 - 47 HHCCT MCHC RBC Auto-mCnc 31.5 g/dL 10/01/2024 30 - 36 HHCCT Platelet num Bld Auto 250.0 Thou/uL 10/01/2024 150 - 450 HHCCT MCV RBC Auto 89.0 fL 10/01/2024 80 - 100 HHCCT RBC num Bld Auto 3.73 Mil/uL Below low normal 10/01/2024 4 - 5.4 HHCCT PMV Bld Auto 11.0 fL 10/01/2024 7.5 - 12.5 HHCCT MCH RBC Qn Auto 28.2 pg 10/01/2024 27 - [address] POC Glucose 181.0 mg/dL Above high normal 10/01/2024 65 - 99 HHCCT History of Medication Use Medication Directions Dispensed Refills Start Date End Date Stat nystatin (MYCOSTATIN) 277176 UNIT/ML suspension Take 5 mL (500,000 Units total) by mouth 4 (four) times a day. 11/11/2024 active minocycline (MINOCIN) 100 MG capsule Take 1 capsule (100 mg total) by mouth 2 (two) times a day. 10/14/2024 active amLODIPine (NORVASC) 5 MG tablet Take 1 tablet (5 mg total) by mouth daily. 10/07/2024 active aspirin enteric coated (ECOTRIN LOW STRENGTH) 81 MG EC tablet Take 1 tablet (81 mg total) by mouth daily. 10/07/2024 active zolpidem (AMBIEN) 10 MG tablet Take 1 tablet (10 mg total) by mouth nightly. 09/29/2024 active metFORMIN (GLUCOPHAGE) 1000 MG tablet Take 1 tablet (1,000 mg total) by mouth 2 (two) times a day with meals. 09/22/2024 active predniSONE (DELTASONE) 10 MG tablet Take 1 tablet (10 mg total) by mouth daily. 09/18/2024 active OMEprazole (PriLOSEC) 20 MG capsule Take 1 capsule (20 mg total) by mouth every morning before breakfast. 09/12/2024 active oxyCODONE (ROXICODONE) 30 MG immediate release tablet Take 1 tablet (30 mg total) by mouth 3 times daily (every 8 hours) as needed for severe pain. 09/02/2024 active Ventolin HFA 108 (90 Base) MCG/ACT inhaler INHALE 2 PUFFS EVERY 6 HOURS NEEDED FOR BRONCHOSPASM 08/21/2024 active lisinopril (PRINIVIL,ZeSTRIL) 20 MG tablet Take 1 tablet (20 mg total) by mouth daily. 07/24/2024 active rosuvastatin (CRESTOR) 40 MG tablet Take 1 tablet (40 mg total) by mouth daily. 07/14/2024 active FREESTYLE TEST STRIPS test strip 3 (three) times a day. Use as directed 07/01/2024 active Problems Problem Status Onset Date Problem Type Date of Resolution Source Right foot ulcer active 2024-10-01 ProblemAct H [facility] Type 2 diabetes mellitus active 2024-10-01 ProblemAct [facility] Primary hypertension active 2024-10-01 ProblemAct [facility] Varicose veins of both lower extremities with pain active EncounterDiagnosisAct HHCCT Mild asthma active 2024-10-01 ProblemAct H[facility]CT Hyperlipidemia active 2024-10-[address] Venous (peripheral) insufficiency active EncounterDiagnosisAct HHCCT Rheumatoid arteritis active 2024-10-01 ProblemAct H[facility]CT Anxiety active 2024-10-01 ProblemAct H[facility]CT Acute lower limb ischemia active 2024-10-01 ProblemAct H[facility]CT Type 2 diabetes mellitus active 2024-10-01 ProblemAct [facility]CT Venous (peripheral) insufficiency active EncounterDiagnosisAct HHCCT Anxiety active 2024-10-01 ProblemAct H[facility]CT Primary hypertension active 2024-10-01 ProblemAct H[facility]CT Acute lower limb ischemia active 2024-10-01 ProblemAct H[facility]CT Right foot ulcer active 2024-10-01 ProblemAct H HCCT Mild asthma active 2024-10-01 ProblemAct [facility]CT Rheumatoid arteritis active 2024-10-01 ProblemAct [facility] Varicose veins of both lower extremities with pain active EncounterDiagnosisAct [facility] Hyperlipidemia active 2024-10-01 ProblemAct [facility] Encounters Encounter Type Encounter Reason Primary Diagnosis Location Date Ambulatory Type 2 diabetes mellitus with diabetic peripheral angiopathy without gangrene Type 2 diabetes mellitus with diabetic peripheral angiopathy without gangrene [facility] 11/25/2024 Ambulatory Type 2 diabetes mellitus with diabetic peripheral angiopathy without gangrene Type 2 diabetes mellitus with diabetic peripheral angiopathy without gangrene [facility] 11/18/2024 Ambulatory Type 2 diabetes mellitus with diabetic peripheral angiopathy without gangrene Type 2 diabetes mellitus with diabetic peripheral angiopathy without gangrene [facility] 11/11/2024 Ambulatory Type 2 diabetes mellitus with diabetic peripheral angiopathy without gangrene Type 2 diabetes mellitus with diabetic peripheral angiopathy without gangrene [facility] 11/04/2024 Ambulatory [facility] 10/29/2024 Ambulatory Atherosclerosis of [place] arteries of other extremities with ulceration Atherosclerosis of [place] arteries of other extremities with ulceration [facility] 10/29/2024 Ambulatory Type 2 diabetes mellitus with diabetic peripheral angiopathy without gangrene Type 2 diabetes mellitus with diabetic peripheral angiopathy without gangrene [facility] 10/28/2024 Ambulatory Type 2 diabetes mellitus with diabetic peripheral angiopathy without gangrene Type 2 diabetes mellitus with diabetic peripheral angiopathy without gangrene [facility] 10/21/2024 Ambulatory Type 2 diabetes mellitus with diabetic peripheral angiopathy without gangrene Type 2 diabetes mellitus with diabetic peripheral angiopathy without gangrene [facility] 10/14/2024 Inpatient Unspecified atherosclerosis of [place] arteries of extremities, unspecified extremity Unspecified atherosclerosis of [place] arteries of extremities, unspecified extremity [facility] 09/30/2024 Ambulatory [facility] 09/30/2024 Ambulatory [facility] 09/30/2024 Ambulatory [facility] 09/30/2024 Care Team Organization Name Specialty Phone Email Start Date End Da raymond [facility] 10/03/2024 [facility] 10/02/2024 [facility] 10/01/2024
== END 2024-12-08 11:07 | disposition home or self-care (01) ==
LOC: HO.HMCH 09:51
PROVIDERS: PCP Internal Medicine; Visit Provider Internal Medicine
DX: I99.8 Other disorder of circulatory system (principal); I87.2 Venous insufficiency (chronic) (peripheral); E11.40 Type 2 diabetes mellitus with diabetic neuropathy, unspecified; G62.9 Polyneuropathy, unspecified; E78.2 Mixed hyperlipidemia; I10 Essential (primary) hypertension; J45.20 Mild intermittent asthma, uncomplicated; D50.8 Other iron deficiency anemias; M51.360 Other intervertebral disc degeneration, lumbar region with discogenic back pain only; M47.22 Other spondylosis with radiculopathy, cervical region; M05.9 Rheumatoid arthritis with rheumatoid factor, unspecified; E53.8 Deficiency of other specified B group vitamins; E55.9 Vitamin D deficiency, unspecified; K21.9 Gastro-esophageal reflux disease without esophagitis; N20.0 Calculus of kidney; F51.01 Primary insomnia; F41.9 Anxiety disorder, unspecified; E66.9 Obesity, unspecified

== ENCOUNTER → 2024-12-08 09:50 | Outpatient (BNVA) | payer OTHER, SELFPAY | PROVIDERS: PCP Internal Medicine; Visit Provider Internal Medicine | DX: I99.8 Other disorder of circulatory system (principal); I87.2 Venous insufficiency (chronic) (peripheral); E11.40 Type 2 diabetes mellitus with diabetic neuropathy, unspecified; E78.2 Mixed hyperlipidemia; I10 Essential (primary) hypertension; J45.20 Mild intermittent asthma, uncomplicated; D50.8 Other iron deficiency anemias; M51.360 Other intervertebral disc degeneration, lumbar region with discogenic back pain only; M47.22 Other spondylosis with radiculopathy, cervical region; M05.9 Rheumatoid arthritis with rheumatoid factor, unspecified; E53.8 Deficiency of other specified B group vitamins; E55.9 Vitamin D deficiency, unspecified; K21.9 Gastro-esophageal reflux disease without esophagitis; N20.0 Calculus of kidney; F51.01 Primary insomnia; F41.9 Anxiety disorder, unspecified; E66.9 Obesity, unspecified; Z68.30 Body mass index [BMI] 30.0-30.9, adult; Z79.52 Long term (current) use of systemic steroids; Z79.84 Long term (current) use of oral hypoglycemic drugs; Z79.891 Long term (current) use of opiate analgesic; Z79.899 Other long term (current) drug therapy | CPT/HCPCS: 99212 ==

== ENCOUNTER 2024-12-15 10:30 | Outpatient (RCR) | payer OTHER, SELFPAY ==
[2023-05-28 08:07] VITALS: BP 150/86; PULSE 83; RESP 16; TEMP 36.3; O2SAT 97
[2023-05-28] MEDS: 0.9 % Sodium Chloride Flush 10 ML SYRINGE 5 ML IVFLUSH (08:43)
[2023-05-28 08:51] LABS: MANUAL DIFF FLAG NO
[2023-05-28 08:53] LABS: Hematocrit 34.4 % (37.0-47.0); Hemoglobin 10.9 g/dl (12.0-16.0); Imm Gran Abs Auto 0.18 X10*3/uL (0.00-0.03); Imm Gran Pct Auto 1.6 % (0.0-0.4); Lymphocytes Absolute Auto 1.7 X10*3/uL (1.2-4.9); Mean Corpuscular HGB Conc 31.7 g/dl (31.0-35.0); Mean Corpuscular Hemoglobin 26.5 pg (27.0-33.0); Mean Corpuscular Volume 83.7 fL (80.0-98.0); NRBC Abs Auto 0.000 X10*3/uL (0.0-0.012); NRBC Pct Auto 0.0 /100WBC (0.0-0.2); Platelet Count 335 X10*3/uL (160-400); Red Blood Count 4.11 X10*6/uL (4.20-5.50); White Blood Count 11.5 X10*3/uL (4.8-10.8)
[2023-05-28 09:30] LABS: Ferritin 287 ng/mL (10-250)
[2024-12-15] VITALS (12 sets, daily range): BP systolic 105–135; BP diastolic 60–80; PULSE 83–115; RESP 16–18; TEMP 36.1; O2SAT 97–99
[2024-12-15] MEDS: Iron Dextran Complex 25 MG in 0.9 % Sodium Chloride 50 ML 202 MG IV (09:30)
[2024-12-15] MEDS: SODIUM CHLORIDE 0.9% IV (11:12)
[2024-12-15] MEDS: IRON DEXTRAN COMPLEX IV (11:12)
== END 2024-12-15 15:37 | disposition home or self-care (01) ==
LOC: HO.INF 10:30
PROVIDERS: Visit Provider Internal Medicine Medical Oncology
DX: D50.9 Iron deficiency anemia, unspecified (principal)
CPT/HCPCS: 36415; 82728; 85025; 96365; 96366; 96374; J1200; J1720; J1750; J1756

== ENCOUNTER 2025-01-10 14:04 | Emergency (ER) | payer MEDICARE, MEDICAID, SELFPAY ==
--- NOTE | ~2025-01-10 | XR_ITS ---
CLINICAL HISTORY: wounds, pain to toes, eval for osteo 3 views right foot Comparison: 09/30/2024 Findings: No fractures or dislocations. Stable talonavicular arthrodesis screws, with no evidence of hardware failure. Similar etcm-vp-kefaibux tarsal degenerative disease. Stable mild degenerative changes of the 1st MTP joint. Stable soft tissue calcification overlying plantar soft tissues. No radiographic evidence of osteomyelitis.. Impression: 1. Similar-appearing right foot. No radiographic evidence of osteomyelitis. This document has been electronically signed by: Marco Sauceda MD on 01/10/2025 15:49:26
--- NOTE | ~2025-01-10 | CT_ITS ---
CLINICAL HISTORY: r o osteomyelitis; chronic r foot wound, tender and swollen r lateral foot --- Additional Notes or Special Instructions: Right foot osteo eval Exam: Contrast-enhanced CT of the right foot. Comparison: Same day foot radiographs. Findings: Osseous structures: Remote postop changes related to talonavicular arthrodesis with 2 fixation screws are re-identified. No hardware failure. No fracture or dislocation. Mild to moderate tarsal as well as talocalcaneal degenerative changes are present. No osseous resorption or CT evidence of osteomyelitis is appreciated. Soft tissues: There is soft tissue swelling or edema, versus soft tissue thickening involving plantar soft tissues at the level of the calcaneus (7; 193 and 9; 26). Otherwise, no circumscribed collections or solid masses appreciated. There is soft tissue calcification overlying the plantar plate. Impression: 1. No CT evidence of osteomyelitis. This document has been electronically signed by: Marco Sauceda MD on 01/10/2025 18:45:09
[2025-01-10 14:08] VITALS: BP 133/92; PULSE 105; RESP 18; TEMP 36.2; O2SAT 97; BMI 31.5
--- NOTE | 2025-01-10 14:11 | ED.GENADULT ---
HPI - General Adult General Chief complaint: Extremity Injury, Lower Stated complaint: Knee Leg Pain Time Seen by Provider: 01/10/25 16:11 Source: patient Mode of arrival: ambulatory Limitations: no limitations History of Present Illness ED Provider: Dr. Pitts [facility] narrative: 64-year-old female presented hospital today for right foot pain. She noticed swelling of the of the right lateral foot. She is being follow up with the electronic security technician for her chronic wound. Patient stated she has taken minocycline for antibiotic currently for her chronic wounds. Patient stated that it is difficult for her to ambulate. She does have history of rheumatoid arthritis. She has been on steroids in the past however this was taken off due to her chronic wounds. Denies any fevers. Related Data Previous Rx's ?Medication ?Instructions ?Recorded sucralfate 100 mg/mL oral 10 ml PO BID 30 days #600 mL 11/04/23 suspension (Carafate) duloxetine 30 mg capsule,delayed 30 mg PO BID 30 days #60 caps 01/23/24 release nebulizer accessories #1 ea 02/22/24 nebulizers #1 ea 02/22/24 albuterol sulfate 2.5 mg/3 mL 2.5 mg (3 mL) continuous 03/11/24 (0.083 %) solution for nebulization nebulization QID PRN shortness of breath or wheezing 30 days #180 mL rosuvastatin 40 mg tablet (Crestor) 40 mg PO DAILY 90 days #90 tabs 04/12/24 ondansetron 4 mg disintegrating 4 mg PO Q8H PRN nausea and 04/29/24 tablet vomiting #30 tabs blood sugar diagnostic (FreeStyle 1 strip miscellaneous TID #100 05/15/24 Test strips) strips lisinopril 20 mg tablet 20 mg PO DAILY #90 tabs 06/12/24 lancets 28 gauge (FreeStyle #100 ea 07/01/24 Lancets) Ventolin HFA 90 mcg/actuation 2 puff inhalation Q6H PRN 08/21/24 aerosol inhaler (albuterol sulfate) bronchospasm #18 grams omeprazole 20 mg capsule,delayed 20 mg PO DAILY 90 days #90 caps 09/12/24 release nystatin 100,000 unit/mL oral 10 ml buccal TID 10 days #300 mL 11/26/24 suspension oxycodone 30 mg tablet 30 mg PO Q12H pain 28 days #56 tabs 12/17/24 albuterol sulfate 2.5 mg/3 mL 2.5 mg (3 mL) inhalation Q4-6H PRN 12/18/24 (0.083 %) solution for nebulization Wheezing #75 mL metformin 1,000 mg tablet 1,000 mg PO BID #180 tabs 12/26/24 zolpidem 10 mg tablet 10 mg PO BEDTIME PRN insomnia 30 12/26/24 days #30 tabs ciprofloxacin HCl 500 mg tablet 500 mg PO BID 5 days #10 tabs 01/10/25 oxycodone 5 mg tablet 5 mg PO Q8H PRN pain 4 days #14 01/10/25 tabs prednisone 20 mg tablet 20 mg PO DAILY 7 days #7 tabs 01/10/25 Allergies Allergy/AdvReac Type Severity Reaction Status Date / Time No Known Allergies Allergy Verified 01/10/25 14:14 Review of Systems Review of Systems: Pertinent review of systems as mentioned in HPI. All other system otherwise negative. [facility] Past Medical History [facility] Narrative: Medical history as mentioned in HPI Medical History (Updated 01/10/25 @ 19:50 by Judy Pitts DO) Lumbar degenerative disc disease Mixed hyperlipidemia Venous insufficiency of both lower extremities Abnormal bruising Obesity (BMI 30-39.9) Anxiety Insomnia GERD (gastroesophageal reflux disease) Vitamin D deficiency Ureterolithiasis Neuropathy Varicose veins of bilateral lower extremities with pain Rheumatoid arthritis Cervical spondylosis with radiculopathy Asthma Iron deficiency anemia, unspecified Vitamin B12 deficiency Hyperlipidemia Hypertension, essential, benign Diabetes mellitus Surgical History (Updated 12/08/24 @ 13:16 by Michael Vogel MD) History of atherectomy Hx of lithotripsy History of surgery on left wrist History of surgery on right wrist History of arthroplasty of left ankle History of arthroplasty of right ankle S/P VANESSA-BSO (total abdominal hysterectomy and bilateral salpingo-oophorectomy) History of arthroplasty of right knee (~2008) Family History Family History Father Chronic mental illness Mother Diabetes Hypertension Stroke Sister Heart disease Diabetes Social History Social History Household Members: Family Housing: Apartment Alcohol intake: never Patient Tobacco Use Status: Former Tobacco user Years Smoked: quit 6 years ago e-Cigarette/Vaping Use: Never Used Second Hand Smoke Exposure: No Use of substances other than those prescribed or required for medical reasons: No Substance Use Type: Prescription Drugs Any prior treatment program specific to substance use: No Advance Directives: No Advance Directives Information Provided: No service: No Current occupational status: disabled Cognitive needs: No (cane) Hearing needs: No Vision needs: Yes (glasses) Physical Exam ED Exam Exam: General: Pleasant, no distress, interacting appropriately Head: Normacephalic, atraumatic Extremities: Right foot swelling on the lateral aspect of feet. Tenderness to palpation. Neurological: Awake and alert, no facial droop noted Skin: Warm and dry Psychiatric: Appropriate mood and thoughts Vital Signs: Vital Signs - 24 hr 01/10/25 14:08 Temperature 97.2 F Pulse Rate 105 H Respiratory Rate 18 Blood Pressure 133/92 H Pulse Oximetry 97 Oxygen Delivery Method Room Air BMI result Body Mass Index 31.5 Course Course Course Narrative: This is a rapid medical exam. Deferred additional HPI, ROS, PE to primary provider. 64-year-old female with history of diabetes managed by metformin, diabetic neuropathy, vascular insufficiency, hypertension, atherosclerotic cardiovascular disease, PID, anxiety, hyperlipidemia, and asthma Had arterial occlusion 09/2024, transferred to and had angio with stenting. Now having pain to 3rd-5th toes since yesterday. Has chronic wounds to right foot. Palpable DP pulse in triage Will obtain labs, x-ray. [place] asked for records. VSS Medications Administered Discontinued Medications Generic Name Dose Route Start Last Admin Trade Name Vy PRN Reason Stop Dose Admin Acetaminophen 975 mg 01/10/25 16:27 01/10/25 17:11 Acetaminophen 325 Mg Tablet PO 01/10/25 16:28 975 mg ONCE ONE Administration Sodium Chloride 500 mls @ 500 mls/hr 01/10/25 16:30 01/10/25 18:45 Ns IV 01/10/25 17:29 500 mls/hr .Q1H IAN Administration Iohexol 100 ml 01/10/25 17:38 01/10/25 17:43 Iohexol 350 Mg/Ml 100 Ml Infus..Btl IV 01/10/25 17:39 85 ml ONCE ONE Administration Ketorolac Tromethamine 15 mg 01/10/25 16:26 01/10/25 17:11 Ketorolac Tromethamine 15 Mg/Ml Vial IVPUSH 01/10/25 16:27 15 mg ONCE ONE Administration Medical Decision Making Medical Decision Making [facility] Narrative: This is a 64-year-old female history of rheumatoid arthritis, diabetic neuropathy, diabetes presented hospital today for right foot swelling of the lateral aspect and pain. Suspect this is may be underlying cellulitis versus rheumatoid arthritis flare up. Patient does not appear to be toxic on exam. I do not have high suspicion of sepsis. She does have a leukocytosis at 12. Her feet did not appear to be erythematous however there was some swelling appreciated on exam. I did give patient some Toradol. CT imaging was obtained to rule out osteomyelitis. On reassessment the patient's stated she still have some pain. CT imaging did not show any signs of osteomyelitis did show some soft tissue swelling. At this point we will plan to expand the patient's antibiotic regimen to ciprofloxacin. Encouraged her to follow up with the Podiatry team. Did discuss possibility of rheumatoid arthritis flare-up with the patient. If the antibiotic regimen is not helping with her pain. Encouraged her to consider prednisone to help with rheumatoid arthritis flare up. Patient agrees and understands this plan. She will plan to discuss this further with the Podiatry. Differential Diagnosis Differential Diagnoses: The differential diagnosis associated with the presentation includes Cellulitis, osteomyelitis, rheumatoid arthritis flare-up Lab Data [facility] Lab Attestation statement: I reviewed the patient's lab results. 01/10/25 14:22 01/10/25 14:22 Labs: Lab Results 01/10/25 Range/Units 14:22 WBC 12.2 H (4.8-10.8) X10*3/uL RBC 4.58 (4.20-5.50) X10*6/uL Hgb 13.2 (12.0-16.0) g/dl Hct 40.5 (37.0-47.0) % MCV 88.4 (80.0-98.0) fL MCH 28.8 (27.0-33.0) pg MCHC 32.6 (31.0-35.0) g/dl RDW 17.2 H (11.0-16.0) % Plt Count 314 (160-400) X10*3/uL MPV 10.2 (9.4-12.3) fL Immature Gran % (Auto) 0.9 H (0.0-0.4) % Neut % (Auto) 80.3 H (45-73) % Lymph % (Auto) 10.3 L (20-40) % [place] % (Auto) 5.5 (2-11) % Eos % (Auto) 2.5 (0-4) % Baso % (Auto) 0.5 (0-2) % Lymph # (Auto) 1.3 (1.2-4.9) X10*3/uL [place] # (Auto) 0.7 (0.1-1.2) X10*3/uL Eos # (Auto) 0.3 (0.0-0.4) X10*3/uL Baso # (Auto) 0.1 (0.0-0.2) X10*3/uL Abs Immat Gran (auto) 0.11 H (0.00-0.03) X10*3/uL Absolute Neuts (auto) 9.8 H (2.0-8.3) x10*3/uL Absolute Nucleated RBC 0.000 (0.0-0.012) X10*3/uL Nucleated RBC % (auto) 0.0 (0.0-0.2) /100WBC Sodium 142 (135-145) mmol/L Potassium 4.0 (3.3-5.1) mmol/L Chloride 108 (96-108) mmol/L Carbon Dioxide 23 (22-29) mmol/L Anion Gap 15 (12-20) BUN 14 (9-16) mg/dL Creatinine 0.86 (0.5-1.4) mg/dL Estim Creat Clear Calc 63.8 Estimated GFR > 60 Random Glucose 127 H (60-115) mg/dL Calcium 9.9 D (8.4-10.2) mg/dL Independent Interpretation I performed an independent interpretation of an: CT Scan Radiology Impression Discussion of test interpretation with radiology: I have reviewed the radiologist's reading. Prescription Management I considered prescription management with: Pain Medication and Antibiotic Discharge Plan Discharge Clinical Impression: Acute pain of right foot Patient Disposition: Home, Self-Care Additional Instructions: Take the antibiotics and finish the course. If it is not improving your pain. Consider taking the steroids. I suspect their is likely rheumatoid flare up of your foot. Follow up with your electronic security technician. I recommend taking tylenol 1000mg every 8 hours for the next week. You can also take the aleve as needed for the pain. If pain is uncontrol you can take a dose of oxycodone Prescriptions: New prednisone 20 mg tablet 20 mg PO DAILY 7 Days Qty: 7 0RF ciprofloxacin HCl 500 mg tablet 500 mg PO BID 5 Days Qty: 10 0RF oxycodone 5 mg tablet 5 mg PO Q8H PRN (Reason: pain) 4 Days Qty: 14 0RF Rx Instructions: Partial Fill upon patient request. No Action sucralfate [Carafate] 100 mg/mL suspension 10 ml PO BID 30 Days Qty: 600 0RF (DME) nebulizers Mis See Rx Instructions .Route Qty: 1 0RF Rx Instructions: As directed (DME) nebulizer accessories Kit See Rx Instructions .Route Qty: 1 0RF Rx Instructions: As directed albuterol sulfate 2.5 mg /3 mL (0.083 %) solution for nebulization 2.5 mg continuous nebulization QID PRN (Reason: shortness of breath or wheezing) 30 Days Qty: 180 3RF rosuvastatin [Crestor] 40 mg tablet 40 mg PO DAILY 90 Days Qty: 90 3RF ondansetron 4 mg tablet,disintegrating 4 mg PO Q8H PRN (Reason: nausea and vomiting) Qty: 30 0RF FreeStyle Test Strip 1 strip miscellaneous TID Qty: 100 3RF lisinopril 20 mg tablet 20 mg PO DAILY Qty: 90 3RF (DME) lancets [FreeStyle Lancets] 28 gauge misc See Rx Instructions .Route Qty: 100 0RF Rx Instructions: As directed three times per day albuterol sulfate [Ventolin HFA] 90 mcg/actuation HFA aerosol inhaler 2 puff inhalation Q6H PRN (Reason: bronchospasm) Qty: 18 5RF omeprazole 20 mg capsule,delayed release(DR/EC) 20 mg PO DAILY 90 Days Qty: 90 1RF nystatin 100,000 unit/mL suspension 10 ml buccal TID 10 Days Qty: 300 0RF Rx Instructions: swish 1/2 of dose in each side of the mouth for up to 5 minutes, then spit out the medicine oxycodone 30 mg tablet 30 mg PO Q12H 28 Days Qty: 56 0RF albuterol sulfate 2.5 mg /3 mL (0.083 %) solution for nebulization 2.5 mg inhalation Q4-6H PRN (Reason: Wheezing) Qty: 75 3RF zolpidem 10 mg tablet 10 mg PO BEDTIME PRN (Reason: insomnia) 30 Days Qty: 30 1RF metformin 1,000 mg tablet 1,000 mg PO BID Qty: 180 0RF duloxetine 30 mg capsule,delayed release(DR/EC) 30 mg PO BID 30 Days Qty: 60 3RF Print Language: French
[2025-01-10 14:27] LABS: MANUAL DIFF FLAG NO
[2025-01-10 14:30] LABS: Hematocrit 40.5 % (37.0-47.0); Hemoglobin 13.2 g/dl (12.0-16.0); Imm Gran Abs Auto 0.11 X10*3/uL (0.00-0.03); Imm Gran Pct Auto 0.9 % (0.0-0.4); Lymphocytes Absolute Auto 1.3 X10*3/uL (1.2-4.9); Mean Corpuscular HGB Conc 32.6 g/dl (31.0-35.0); Mean Corpuscular Hemoglobin 28.8 pg (27.0-33.0); Mean Corpuscular Volume 88.4 fL (80.0-98.0); NRBC Abs Auto 0.000 X10*3/uL (0.0-0.012); NRBC Pct Auto 0.0 /100WBC (0.0-0.2); Platelet Count 314 X10*3/uL (160-400); Red Blood Count 4.58 X10*6/uL (4.20-5.50); White Blood Count 12.2 X10*3/uL (4.8-10.8)
[2025-01-10 14:59] LABS: Anion Gap 15 (12-20); Blood Urea Nitrogen 14 mg/dL (9-16); Calcium 9.9 mg/dL (8.4-10.2); Carbon Dioxide 23 mmol/L (22-29); Chloride 108 mmol/L (96-108); Creatinine Clr Calc Pharmacy 63.8; Estimated Glomerular Filt Rate > 60; Potassium 4.0 mmol/L (3.3-5.1); Sodium 142 mmol/L (135-145)
[2025-01-10] MEDS: iohexoL 350 MG/ML 100 ML INFUS..BTL IV (17:43)
[2025-01-10 20:00] VITALS: BP 178/92; PULSE 68; RESP 16; TEMP 36.7; O2SAT 97
[2025-01-10 20:07] VITALS: BP 178/92; PULSE 68; RESP 16; TEMP 36.7; O2SAT 97
== END 2025-01-10 20:18 | disposition home or self-care (01) ==
PROVIDERS: Nurse Practitioner Family; Emergency Provider Student in an Organized Health Care Education/Training Program; PCP Internal Medicine
DX: M79.671 Pain in right foot (principal); E11.40 Type 2 diabetes mellitus with diabetic neuropathy, unspecified; I10 Essential (primary) hypertension; M06.9 Rheumatoid arthritis, unspecified; S91.309D Unspecified open wound, unspecified foot, subsequent encounter; X58.XXXD Exposure to other specified factors, subsequent encounter; Z79.84 Long term (current) use of oral hypoglycemic drugs
CPT/HCPCS: 36415; 73620; 73701; 80048; 85025; 96361; 96374; 99284; 99285; J1885; Q9967

== ENCOUNTER 2025-01-24 10:21 | Emergency (ER) | payer MEDICARE, MEDICAID, SELFPAY ==
--- OUTSIDE RECORDS SUMMARY | 2025-01-20 08:15 | XMS_ITS | Encounter Summary ---
Author Organization [facility] Address [address] [place] [address] Care Team Providers Care Curb Setter Name Role Phone Michael Vogel MD Primary Care Provider [phone] Pamela Diego MD Unavailable [phone] Reason for Visit * Reason Comments Follow-up Follow up for wounds to the top of the left foot and great toe Encounter Details Date Type Department Care Team (Late st Contact Info) Description 01/20/2025 8:15 AM EST Office Visit [facility] Podiatric Surgery [address] [place] [id number] Floyd Rhodes, DPM [address] [facility] [address] [place] [address] Diabetes mellitus with peripheral circulatory disorder (HCC) (Primary Dx); Ulcerated, foot, right, with fat layer exposed (HCC); Ulcer of great toe, right, limited to breakdown of skin (HCC) Social History Tobacco Use Types Packs/Day Years Used Date Smoking Tobacco: Former Cigarettes Smokeless Tobacco: Never Comments:Quit smoking over 5 0 yrs ago [facility] Utilities Answer Date Recorded In the past 12 months has [employer] electric, gas, oil, or water company threatened [...] any time in the past [address] [facility], were you homeless or living in a long-term (including now)? No 10/02/2024 AUDIT-C Answer Date Recorded Q1: How often do you have a drink containing alcohol? Never 01/21/2025 Q2: How many drinks containi ng alcohol do you have on a typical day when you are drinking? Patient does not drink Q3: How often do you have si x or more drinks on one occasion? Never 01/21/2025 Comments Unknown Sex and Gender Information Value Date Recorded Sex Assigned at Female 10/01/2024 3:34 AM EDT Legal Sex Female 9:47 PM EDT Gender Identity Female 10/01/2024 3:34 AM EDT Sexual Orientation Heterosexual (straight) 10/01 3:34 AM EDT documented as of this encounter Last Filed Vital Signs Vital Sign Reading Time Taken Comments Blood Pressure - - Pulse 72 01/20/2025 8:02 AM EST Temperature - - Respiratory Rate - - Oxygen Saturation 98% 01/20/2025 8:02 AM EST Inhaled Oxygen Concentration - - Weight 76.2 kg (168 lb) 01/20/2025 8:02 AM EST Height 157.5 cm (5' 2 ) 01/20/2025 8:02 AM EST Body Mass Index 30.73 01/20/2025 8:02 AM EST documented in this encounter Progress Notes * Floyd Carmelo, DPM - 01/20/2025 8:55 AM EST The patient presents for local wound care of the right foot. The patient relates that she continuesto have pain. The patient relates that the ulcer is getting larger and the ulcer to the right greattoe has reopened. The patient is taking Cipro at this time as prescribed. The patient dresses the ulcer with Mesalt daily. The patient does not have any other complaints at this time. The patient is here with her . Vitals: 01/20/25 0802 Pulse: 72 SpO2: 98% Weight: 76.2 kg (168 lb) Height: 1.575 m (5' 2 ) Physical Exam Lower Extremity Dorsalis pedis pulse is 0/4 to the right foot, non-dopplerable right foot Posterior tibial pulse is 0/4 to the right foot, weakly monophasic right by doppler Capillary filling time is 2 seconds to the digits of the right foot Temperature gradient WNL right Protective sensation intact as per [place] Nav 5.07 monofilament wire Muscle power 5/5 right Motor function intact right There is slight edema to the dorsal aspect of the right fore foot The ulcer to the dorsal aspect of the 1st intermetatarsal space of the right foot measures 1.5cm x 0.5cm after debridement of overlying devitalized tissue. The base of the ulcer is fibrogranular. There is no purulence expressed. There is no ascending cellulitis noted. There is a superficial ulcer to the dorsal lateral aspect of the base of the right great toe which measures 0.5cm x 0.2cm after debridement of overlying devitalized tissue. There is no purulence expressed. There is no ascending cellulitis noted. Assessment: 1. Diabetes mellitus with peripheral circulatory disorder (HCC) 2. Ulcerated, foot, right, with fat layer exposed ([facility]) 3. Ulcer of great toe, right, limited to breakdown of skin ([facility]) Plan: 1. The ulcers were debrided of devitalized tissue with a scalpel in an excisional manner to promotewound healing. The ulcers were dressed with Mesalt which will be changed daily. The patient's woundis getting larger and the ulcer to the right great toe has reopened. The patient is having pain to the right foot. I am going to send the patient for vascular studies to assess her peripheral circulation. I am going to have my clinical nurse contact [facility] for the final culture results. Addendum: The patient's wound culture results were negative for any bacterial growth of the pathological significance. The patient's vascular studies revealed a decrease in the patient's JESI in the right side since her last set of vascular studies. The patient will be seen by a vascular provider today to determine the next course of action. documented in this encounter Plan of Treatment Upcoming Encounters Date Type Department Care Team (Latest Contact Info) Description 01/28/2025 12:30 PM EST Hospital Encounter [facility] Perioperative Surgical Services [address] [place] [id number] Mansoor Olivas MD [address] [place] [address] Atherosclerosis 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 (HCC) 01/28/2025 12:30 PM EST - 01/28/2025 3:30 PM EST Surgery [facility] [address] [place], [place] [phone] Mansoor Olivas MD [address] [place] [address] DIAGNOSTIC ANGIOGRAM Scheduled Procedures Name Priority Associated Diagnoses Date/Ti me ANGIOPLASTY FEM-BRACHIAL Atherosclerosis 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 (HCC) 01/28/2025 12:30 PM EST documented as of this encounter Visit Diagnoses Diagnosis Diabetes mellitus with peripheral circulatory disorder (HCC)- Primary Type II or unspecified type diabetes mellitus with peripheral circulatory disorders, not stated as uncontrolled Ulcerated, foot, right, with fat layer exposed (HCC) Ulcer of great toe, right, limited to breakdown of skin (HCC) Atherosclerosis 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 (HCC) Atherosclerosis 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
--- OUTSIDE RECORDS SUMMARY | 2025-01-20 09:00 | XMS_ITS | Encounter Summary ---
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) Procedures Vas Arterial Leg - Single Level Pressures Kelvin Liu MD [address] [place] [address] Phone: tel: fax: Referral ID Status Reason Start Date Expiration Date Visits Re quested Visits Authorized [id number] Closed 01/20/2025 01/21/2026 1 1 Encounter Details Date Type Department Care Team (Latest Contact Info) Description 01/20/2025 9:00 AM EST Ancillary Procedure [facility] Vascular & Endovascular Surgery [address] [address] Kelvin Liu MD [address] [place] [address] 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 No 10/02/2024 AUDIT-C Answer Date [...] Description 01/28/2025 12:30 PM EST Hospital Encounter 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 Department: [facility] Vascular Lab ([place]) Patient: [id number] (ISELA BUCKLEY) Patient Location: [facility] CPT Code: 88994 ICD-9: Referring Physician: Kelvin Liu MD, RPVI Impression Right ankle pulse volume recording and ankle brachial index are abnormal. The JESI is 0.44. Pressure measurements are likely unreliable due to non-compressible (calcific) vessels. 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 Compared to previous studies, the right JESI decreased. Please see arterial duplex study from today Indications Chronic Ulcer ADD ON Clinical Examination 65 year old female Hx right posterior tibial artery atherectomy and angioplasty. Brachial Pressure:Right 177/Left 169/ Findings: Segment Right Left Pressure JESI Pressure Brachial Artery 177 169 Dorsalis Pedis Artery 77 0.44 Posterior Tibial Artery >200 Electronically Signed by: Kelvin Liu MD, RPTRIPP on 2025-01-20 04:00:45 PM End of Report Procedure Note Kelvin Liu MD - 01/21/2025 Department: [facility] Vascular Lab ([place]) Patient: [id number] (ISELA BUCKLEY) Patient Location: [facility] CPT Code: 15424 ICD-9: Referring Physician: Kelvin Liu MD, RPVI Impression Right ankle pulse volume recording and ankle brachial index are abnormal.The JESI is 0.44. Pressure measurements are likely unreliable due tonon-compressible (calcific) vessels. Findings are consistent with severearterial occlusive disease of this extremity. Compared to previous studies, the right JESI decreased. Please see arterial duplex study from today Indications Chronic Ulcer ADD ON Clinical Examination 65 year old female Hx right posterior tibial artery atherectomy andangioplasty. 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
--- OUTSIDE RECORDS SUMMARY | 2025-01-20 09:15 | XMS_ITS | Encounter Summary ---
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) 01/28/2025 12:30 PM EST - 01/28/2025 3:30 PM EST Surgery [facility] Perioperative Surgical Services [address] [place] [address] Mansoor Olivas MD [address] [place] [address] DIAGNOSTIC ANGIOGRAM Scheduled Procedures Name Priority Associated Diagnoses Date/Ti me ANGIOPLASTY FEM-BRACHIAL 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 Department: [facility] Vascular Lab ([place]) Patient: [id number] (ISELA BUCKLEY) Patient Location: [facility] CPT Code: 85649 ICD-9: Referring Physician: Kelvin Liu MD, RPVI Impression Right: Duplex scan demonstrates normal doppler waveforms in the common femoral artery, not consistent with inflow disease. The proximal profunda artery is patent. The proximal superficial femoral artery and popliteal artery are patent with normal doppler waveforms. Compared to previous studies, there is no significant change. Please see arterial duplex study from today Indications Chronic Ulcer ADD ON Clinical Examination 65 year old female Hx right posterior tibial artery atherectomy and angioplasty. Findings: Right PSV WHOLESALE AGRONOMIST 96 PFA Prox 65 SFA Prox 90 Popliteal Artery Mid 34 Electronically Signed by: Kelvin Liu MD, RPVI on 2025-01-20 10:40:49 AM End of Report Procedure Note Kelvin Liu MD - 01/20/2025 Department: [facility] Vascular Lab ([place]) Patient: [id number] (ISELA BUCKLEY) Patient Location: [facility] CPT Code: 84780 ICD-9: Referring Physician: Kelvin Liu MD, RPVI Impression Right: Duplex scan demonstrates normal doppler waveforms in the common femoralartery, not consistent with inflow disease. The proximal profunda arteryis patent. The proximal superficial femoral artery and popliteal arteryare patent with normal doppler waveforms. Compared to previous studies, there is no significant change. Please see arterial duplex study from today Indications Chronic Ulcer ADD ON Clinical Examination 65 year old female Hx right posterior tibial artery atherectomy andangioplasty. 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
--- OUTSIDE RECORDS SUMMARY | 2025-01-20 10:30 | XMS_ITS | Encounter Summary ---
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 No 10/02/2024 AUDIT-C Answer Date [...] Sign Reading Time Taken Comments Blood Pressure 130/80 01/20/2025 10:31 AM EST Pulse 89 01/20/2025 10:31 AM EST Temperature - - Respiratory Rate - - Oxygen Saturation 96% 01/20/2025 10:31 AM EST Inhaled Oxygen Concentration - - Weight 76.2 kg (168 lb) 01/20/2025 10:31 AM EST Height 157.5 cm (5' 2 ) 01/20/2025 10:31 AM EST Body Mass Index 30.73 01/20/2025 10:31 AM EST documented in this encounter Progress Notes * Angie Valenzuela, GAURI - 01/20/2025 10:53 AM EST Images from the original note were not included. Patient: Isela Frausto Date:01/20/25 Location:[facility] Vascular & Endovascular Surgery [facility] [phone] Assessment & Plan Isela Frausto is a 65 y.o. female who is 4 months out from a right posterior tibial artery atherectomy and angioplasty that was performed for nonhealing wound. When we saw her for her postoperative visit the wound was healing in well. She continues to work with podiatry in about 3 to 4 weeks ago began to notice that the wounds were returning and she was also experiencing symptoms of continuous pain at and around the foot. Currently the wounds are stable. There is no evidence of infection or ascending cellulitis. She has been sent over from podiatry for evaluation. We performed arterial studies which shows a drop in JESI from 1.28 to 0.44. PVR tracings are minimally pulsatile at the ankle and I am unable to obtain a PT signal. With these findings I suspect that the IRON GUARDRAIL INSTALLER is completely out and that she does not have enough blood flow for wound healing. Dr. Olivas would like to take the patient to the OR on January 28, 2025 for diagnostic angiogram with possible angioplasty/atherectomy/stenting of the femoral and/or tibial regions to help increase blood flow andpromote wound healing. The patient verbalized understanding of our recommendations and is agreeableto this plan. The total time spent on the care of this patient is 35 minutes and includes physical examination, review of imaging, review of medical records, counseling, education, and documentation. *This patient has a serious medical condition or multiple complex chronic conditions. As a result of this patient's vascular history it is necessary that we follow this patient routinely with ongoingsurveillance, management and treatment of their complex vascular needs. Subjective Isela Frausto is a 65 y.o. female who is seen today as an urgent add-on sent over from podiatry for returning and nonhealing wounds of the right lower extremity. She is status post right posterior tibial artery atherectomy and angioplasty from September. We saw her back in October her wounds were healing in nicely. The patient states that approximately 3 to 4 weeks ago she began to notice that the wounds were opening back up and worsening. She is also experiencing significant pain at and aroundthe area of the wound. There is no evidence of infection. She assures me that she has been compliant on all of her medications which include aspirin, Plavix and Crestor The patient is a former smoker who quit about 15 years ago. Pertinent PMH/PSH: Hypertension, hyperlipidemia, diabetes, rheumatoid arthritis Vascular Surgical History: 10/03/24 - Right posterior tibial artery atherectomy and angioplasty for tissue loss. Dr Luisa Diego. Pertinent Medications: Aspirin 81 mg daily, Plavix 75 mg daily, Crestor 40 mg daily Please refer to full medication list scanned into [employer]. Pertinent Labs: Lab Results Component Value Date HGBA1C 7.0 (H) 10/01/2024 Lab Results Component Value Date BUN 8 10/06/2024 CREAT 0.9 10/06/2024 Lab Results Component Value Date CHOL 173 10/01/2024 HDL 52 10/01/2024 TRIG 104 10/01/2024 Lab Results Component Value Date ESTLDL 100 10/01/2024 Allergies: Allergies[1] Review of Systems: Please see HPI for further details Review of Systems Constitutional: Negative for chills, fatigue and fever. Respiratory: Negative for cough and shortness of breath. Cardiovascular: Negative for chest pain and palpitations. Gastrointestinal: Negative for abdominal pain. Musculoskeletal: Negative for back pain and gait problem. Skin: Positive for wound. Negative for color change. Vital Signs: Vitals: 01/20/25 1031 BP: 130/80 Pulse: 89 SpO2: 96% Weight: 76.2 kg (168 lb) Height: 1.575 m (5' 2 ) Physical Exam: General: Appears well, in no acute distress. Psych: Alert and answering questions appropriately. HEENT: Head is normocephalic. There are no carotid bruits. Chest: Equal chest expansion bilaterally, no work of breathing. Lower Extremities: There are monophasic DP signals of the right lower extremity. I am unable to obtain a signal of the PT. There are wounds at the dorsum of the foot as well as the top of the first toe. No evidence of infection or ascending cellulitis. See images below Vascular Studies Vascular lab results: Right lower extremity arterial duplex demonstrates no evidence of inflow disease. The proximal profunda is patent. The SFA and popliteal arteries are patent. PVR tracings are minimally pulsatile at the ankle. 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) 01/28/2025 12:30 PM EST - 01/28/2025 3:30 PM EST Surgery [facility] Perioperative Surgical Services [address] [place] [phone] Mansoor Olivas MD [address] [place] [address] DIAGNOSTIC ANGIOGRAM Scheduled Procedures Name Priority Associated Diagnoses Date/Ti me ANGIOPLASTY FEM-BRACHIAL Atherosclerosis of [place]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 (HCC) 01/28/2025 12:30 PM EST documented as of this encounter Visit Diagnoses Diagnosis Atherosclerosis of [place]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
--- NOTE | ~2025-01-24 | XR_ITS ---
CLINICAL HISTORY: ?Osteo 3 view right foot Comparison: CT/SR - CT FOOT RT W IV CON - 01/10/25 17:35 EST CR - XR FOOT RT 2V - 01/10/25 14:49 EST Findings: No fracture or malalignment. Os peroneum. Osteopenia. Talonavicular arthrodesis screws without hardware complication. Mild tibiotalar and up to moderate midfoot osteoarthritis. Mild 1st metatarsophalangeal joint and scattered interphalangeal joint osteoarthritis No definite erosions or periostitis to suggest osteomyelitis. Posterior and plantar calcaneal enthesophytes. Plantar fascial calcifications. No tibiotalar joint effusion. Calcific atherosclerosis. IMPRESSION: No definite erosions or periostitis to suggest osteomyelitis. This document has been electronically signed by: Donato Shah DO on 01/24/2025 12:34:18
[2025-01-24 10:22] VITALS: BP 133/94; PULSE 116; RESP 18; TEMP 36.1; O2SAT 100; BMI 30.7
--- OUTSIDE RECORDS SUMMARY | 2025-01-24 11:13 | XMS_ITS | Clinical Summary ---
Author Organization [facility] Address [address] [place] [phone] Phone Care Team Providers Care Dental Instrument Maker Name Role Phone Michael Vogel MD Primary Care Provider [phone] Social History Tobacco Use Types Packs/Day Years [...] HIV ONE-TIME SCREENING (18-6 5 YEARS) 01/15/1978 MAMMOGRAM 2000 COLOGUARD 01/15/2005 COLONOSCOPY 01/15/2005 COLORECTAL CANCER SCREENING 01/15/2005 FIT TEST 01/15/2005 FOBT 01/15/2005 SIGMOIDOSCOPY 01/15/2005 VIRTUAL COLONOSCOPY 01/15/2005 PNEUMOCOCCAL VACCINES (50+ y ears) (1 of 1 - PCV) 01/15/2010 ZOSTER VACCINES (1 of 2) 01/15/2010 INFLUENZA VACCINE (#1) 2024 COVID-19 VACCINE (1 - 2024-2 6 season) 2024 OSTEOPOROSIS SCREENING INITI AL (ONE-TIME) 01/15/2025 RSV VACCINE (1 - 1-dose 75+ series) [...] topic Medical Devices Not on file Insurance [facility] [place] [address] [facility] Care Teams Dental Instrument Maker Relationship Specialty Start Date End Date Michael Vogel MD [address] [place] [address] [place] [address] PCP - General Internal Medicine 01/10/24 Additional Source Comments The information contained in this document represents components of the legal health record. It is not the complete legal health record.[facility]
--- OUTSIDE RECORDS SUMMARY | 2025-01-24 11:13 | XMS_ITS | Clinical Summary ---
Author Organization [facility] Address [address] [facility] [address] [place] [address] Phone Care Team Providers Care Heavy Equipment Rental Associate Name Role Phone Michael Vogel MD Primary Care Provider [phone]- [phone] Allergies Active Allergy Reactions Criticality Noted Date [...] 4 WEEKS 3 Active ergocalciferol 1.25 MG (76807 UT) capsule TAKE 1 CAPSULE BYMOUTH ONCE [...] to complete this topic Insurance Care Teams Heavy Equipment Rental Associate Relationship Specialty Start Date End Date Michael Vogel MD [address] [place] [address] PCP - General Internal Medicine 05/03/22
--- OUTSIDE RECORDS SUMMARY | 2025-01-24 11:14 | XMS_ITS | Clinical Summary ---
Author Organization [facility] Address [address] [place] [address] Care Team Providers Care Starch Mangle Tender Name Role Phone Michael Vogel MD Primary Care Provider [phone] Pamela Diego MD Unavailable [phone] Allergies No known active allergies Medications Ventolin [...] daily. 30 tablet 5 Active nystatin (MYCOSTATIN) 320672 UNIT/ML suspensionIndic ations:Diabetes mellitus with peripheral circulatory disorder (HCC),Oral thrush Take 5 mL (500,000 Units total) by mouth 4 (four) times a day. 60 mL 5 Active clopidogrel (PLAVIX) 75 MG tabletIndicatio ns:Atherosclero sis of hopland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 (HCC) Take 1 tablet (75 mg total) by mouth daily. 90 tablet 3 5 026 Active ciprofloxacin (CIPRO) 500 MG tablet 5 Active predniSONE (DELTASONE) 20 MG tablet 5 Active gabapentin (NEURONTIN) 100 MG capsuleIndicati ons:Neuropathic pain Take 1 capsule (100 mg total) by mouth twice daily (every 12 hours). 10 capsule 5 025 Active minocycline (MINOCIN) 100 MG capsuleIndicati ons:Ulcerated, foot, right, with fat layer exposed (HCC) Take 1 capsule (100 mg total) by mouth 2 (two) times a day. 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 12/08/2024 Acute lower limb ischemia 10/01/2024 Assessment & Plan (10/06/2024 6:35 AM EDT): S/p right lower extremity angiogram with MANAGER OF [employer]ULATORY AFFAIRS atherectomy and plasty on 10/03/2024 Patient had noninvasive invasive vascular studies performed for new baseline after surgery Patient been followed by vascular surgeon as per vascular surgery recommendation Patient should continue on aspirin 81 mg and high intensity statin Patient can follow-up with her in the [facility] in 3 to 4 weeks Discharge information placed in the discharge section of the patient's chart as per vascular surgeon no other acute vascular interventions warranted at this time Patient is on IV antibiotics Follow-up ID recommendation Assessment & Plan (10/04/2024 11:31 AM EDT): Status post right lower extremity angiogram with MANAGER OF REGULATORY AFFAIRS atherectomy and plasty on 10/03/2024 Patient been [...] Patient underwent right lower extremity angiogram with MANAGER OF REGULATORY AFFAIRS atherectomy and plasty on 10/03/2024. - Vascular surgery followed throughout admission. Follow up in 3 weeks outpatient - Podiatry signed off. Follow up in 1 week outpatient. - ID followed throughout admission. Okay to stop ABX. - Continue ASA and statin Assessment & Plan (10/06/2024 6:35 AM EDT): S/p right lower extremity angiogram with MANAGER OF REGULATORY AFFAIRS atherectomy and plasty on 10/03/2024 Patient had noninvasive invasive vascular studies performed for new baseline after surgery Patient been followed by vascular surgeon as per vascular surgery recommendation Patient should continue on aspirin 81 mg and high intensity statin Patient can follow-up with her in the [facility] office in 3 to 4 weeks Discharge information placed in the discharge section of the patient's chart as per vascular surgeon no other acute vascular interventions warranted at this time Patient is on IV antibiotics Follow-up ID recommendation Assessment & Plan (10/04/2024 11:31 AM EDT): Status post right lower extremity angiogram with MANAGER OF REGULATORY AFFAIRS atherectomy and plasty on 10/03/2024 Patient been [...] surgery, podiatry following. S/p RLE angiogram with MANAGER OF REGULATORY AFFAIRS atherectomy and plasty on 10/03. Was on [...] Encounters Date Type Department Care Team Description 01/20/2025 10:30 AM EST Office Visit [facility] Vascular & Endovascular Surgery [address] [phone] Angie Valenzuela APRN Atherosclerosis of hopland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 (HCC) (Primary Dx) 01/20/2025 9:15 AM EST Ancillary Procedure [facility] Vascular & Endovascular Surgery [address] [phone] Kelvin Liu MD Atherosclerosis of hopland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 (HCC) 01/20/2025 9:00 AM EST Ancillary Procedure [facility] Vascular & Endovascular Surgery [address] [phone] Kelvin Liu MD Atherosclerosis of hopland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 (HCC) 01/20/2025 8:15 AM EST Office Visit [facility] Podiatric Surgery [address] [phone] Floyd Rhodes DPM Diabetes mellitus with peripheral circulatory disorder (HCC) (Primary Dx); Ulcerated, foot, right, with fat layer exposed (HCC); Ulcer of great toe, right, limited to breakdown of skin (HCC) 01/13/2025 8:15 AM EST Office Visit [facility] Podiatric Surgery [address] [phone] Carmelo, Floyd, DPM Diabetes mellitus with peripheral circulatory disorder (HCC) (Primary Dx); Ulcerated, foot, right, with fat layer exposed (HCC); Right foot pain 01/06/2025 8:15 AM EST Office Visit [facility] Podiatric Surgery [address] [phone] Carmelo, Floyd, DPM Diabetes mellitus with peripheral circulatory disorder (HCC) (Primary Dx); Ulcerated, foot, right, with fat layer exposed (HCC) 12/30/2024 9:00 AM EST Office Visit [facility] Podiatric Surgery [address] [phone] Carmelo, Floyd, DPM Diabetes mellitus with peripheral circulatory disorder (HCC) (Primary Dx); Ulcerated, foot, right, with fat layer exposed (HCC); Callus of foot 12/23/2024 9:00 AM EDT Office Visit [facility] Podiatric Surgery [address] [phone] Carmelo, Floyd, DPM Diabetes mellitus with peripheral circulatory disorder (HCC) (Primary Dx); Ulcerated, foot, right, with fat layer exposed (HCC); Ingrowing nail, right great toe 12/16/2024 8:00 AM EDT Office Visit [facility] Podiatric Surgery [address] [phone] Carmelo, Floyd, DPM Diabetes mellitus with peripheral circulatory disorder (HCC) (Primary Dx); Ulcerated, foot, right, with fat layer exposed (HCC) 12/08/2024 3:00 PM EDT Office Visit [facility] Vascular & Endovascular Surgery [address] [phone] Mansoor Olivas MD Atherosclerosis of hopland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 (HCC) (Primary Dx) 11/25/2024 8:45 AM EDT Office Visit [facility] Podiatric Surgery [address] [address] Carmelo, Floyd, DPM Diabetes mellitus with peripheral circulatory disorder (HCC) (Primary Dx); Ulcer of great toe, right, with fat layer exposed (HCC); Ulcerated, foot, right, with fat layer exposed (HCC) 11/18/2024 9:45 AM EDT Office Visit [facility] Podiatric Surgery [address] [phone] Carmelo, Floyd, DPM Diabetes mellitus with peripheral circulatory disorder (HCC) (Primary Dx); Ulcer of great toe, right, with fat layer exposed (HCC); Ulcerated, foot, right, with fat layer exposed (HCC) 11/11/2024 10:00 AM EDT Office Visit [facility] Podiatric Surgery [address] [phone] Carmelo, Floyd, DPM Diabetes mellitus with peripheral circulatory disorder (HCC) (Primary Dx); Oral thrush; Ulcer of great toe, right, with fat layer exposed (HCC); Ulcerated, foot, right, with fat layer exposed (HCC) 11/04/2024 10:00 AM EDT Office Visit [facility] Podiatric Surgery [address] [phone] Carmelo, Floyd, DPM Diabetes mellitus with peripheral circulatory disorder (HCC) (Primary Dx); Ulcer of great toe, right, with fat layer exposed (HCC); Ulcerated, foot, right, with fat layer exposed (HCC) 10/29/2024 8:30 AM EDT Office Visit [facility] Vascular & Endovascular Surgery [address] [place] [phone] Pamela Diego MD 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) (Primary Dx) 10/29/2024 8:00 AM EDT Ancillary Procedure [facility] Vascular & Endovascular Surgery [address] [place] [phone] Pamela Diego MD Atherosclerosis of hopland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 (HCC) 10/28/2024 9:45 AM EDT Office Visit [facility] Podiatric Surgery [address] [place] [address] Floyd Rhodes, DPM Diabetes mellitus with peripheral circulatory disorder (HCC) (Primary Dx); Ulcerated, foot, right, with fat layer exposed (HCC); Ulcer of great toe, right, with fat layer exposed (HCC) from Last 3 Months Social History Tobacco Use Types Packs/Day Years Used Date Smoking Tobacco: Former Cigarettes Q uit: 2013 Smokeless Tobacco: Never Tobacco Cessation:Counseling Given: Not Answered Comments:Quit smoking over 50 yrs ago Alcohol Use Standard Drinks/Week Comments Not Currently 0 (1 standard drink = 0.6 oz pur e alcohol) [facility] Utilities Answer Date Recorded In the past 12 months has th e [employer], gas, oil, or water [employer] threatened to shut off services in your [...] any time in the past 12 m [facility], were you homeless or living in [...] Pulse 89 01/20/2025 10:31 AM EST Temperature 36.2 C (97.1 F) 10/06/2024 11:42 AM EDT Respiratory Rate 18 10/06/2024 11:42 AM EDT Oxygen Saturation 96% 01/20/2025 10:31 AM EST Inhaled Oxygen Concentration - - Weight 76.2 kg (168 lb) 01/21/2025 9:02 AM EST Height 157.5 cm (5' 2 ) 01/21/2025 9:02 AM EST Body Mass Index 30.73 01/21/2025 9:02 AM EST Plan of Treatment Upcoming Encounters Date Type Department Care Team (Latest Contact Info) Description 01/28/2025 12:30 PM EST Hospital Encounter [facility] Perioperative Surgical Services [address] [place], [place] [phone] Mansoor Olivas MD [address] [place] [address] Atherosclerosis of hopland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 (HCC) 01/28/2025 12:30 PM EST - 01/28/2025 3:30 PM EST Surgery [facility] [address] [place], [place] [phone] Mansoor Olivas MD [address] [place] [address] DIAGNOSTIC ANGIOGRAM Scheduled Procedures Name Priority Associated Diagnoses Date/Ti me ANGIOPLASTY FEM-BRACHIAL Atherosclerosis of hopland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 (HCC) 01/28/2025 12:30 PM EST Health Maintenance Due Date Last Done Comments Advance Care Planning 1960 Hepatitis C Virus Screening 1960 Ophthalmology Exam 01/15/1970 HIV Screening 01/15/1973 Microalbumin/Creatinine Ratio Urine 01/15/1978 DTaP/Tdap/Td Vaccines (1 - Tdap) 01/15/1979 Pneumococcal Vaccines 50+ (1 of 2 - PCV) 01/15/1979 Pap Smear (Ages 21-65) 01/15/1981 Mammogram 2000 Colonoscopy 01/15/2005 RSV Vaccine 50 years and older and Patients (1 - Risk 50-74 years 1-dose series) 01/15/2010 Zoster (Shingles) Vaccine (1 of 2) 01/15/2010 Influenza Vaccine 09/26/2024 COVID-19 Vaccine ( - season) 2024 DXA Bone Density (Females,Ages 65 and older) 01/15/2025 Hemoglobin A1C 04/03/2025 10/01/2024 Lipid Panel 10/01/2025 10/01/2024 Foot Exam 10/06/2025 10/06/2024, 09/26, 10/01/2024, Additional history exists Creatinine with GFR 01/21/2026 01/21/2025, 10/06/2024, 10/04/2024, Additional history exists Chronic Controlled Substance User PDMP Review Discontinued 09/30/2024 Hepatitis B Vaccines Aged Out No long er eligible based on patient's age to complete this topic Procedures Procedure Name Priority Date/Time Associated Diagnosis Comments BASIC METABOLIC PANEL Routine 01/21/2025 10:01 AM EST Atherosclerosis of hopland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 (HCC) Preoperative examination COMPLETE BLOOD COUNT, WITH DIFFERENTIAL Routine 01/21/2025 10:01 AM EST Atherosclerosis of hopland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 (HCC) Preoperative examination ENDOVASCULAR PROCEDURE Routine 01/21/2025 7:34 AM EST Atherosclerosis of hopland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 (HCC) CULTURE, AEROBIC AND ANAEROBIC W/GRAM STAIN Routine 01/20/2025 10:35 AM EST VAS ARTERIAL DUPLEX LEG GRAFT-RIGHT Routine 01/20/2025 9:42 AM EST Atherosclerosis of hopland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 (HCC) VAS ARTERIAL LEG SINGLE LEVEL PRESSURES-RIGHT Routine 01/20/2025 9:42 AM EST Atherosclerosis of hopland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 (HCC) CULTURE, AEROBIC AND ANAEROBIC W/GRAM STAIN Routine 01/09/2025 11:18 AM EST CULTURE, AEROBIC AND ANAEROBIC W/GRAM STAIN Routine 01/09/2025 11:15 AM EST CULTURE, AEROBIC AND ANAEROBIC W/GRAM STAIN Routine 01/06/2025 8:07 AM EST Diabetes mellitus with peripheral circulatory disorder (HCC) Ulcerated, foot, right, with fat layer exposed (HCC) VAS ARTERIAL LEG MULTI LEVEL PRESSURES-RIGHT Routine 10/29/2024 8:44 AM EDT Atherosclerosis of hopland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 (HCC) HEMOGLOBIN A1C WITH ESTIMATED AVERAGE GLUCOSE Routine 10/01/2024 12:35 AM EDT LIPID PANEL STAT 10/01/2024 12:35 AM EDT from Last 3 Months or Most Recently Relevant to Health Maintenance Results * (ABNORMAL) Complete Blood Count, with Differential (01/21/2025 10:01 AM EST) White Blood Cell Count 13.8(H) 3.8 - 10.8 Thousand/ uL [facility] Pint Please Red Blood Cell Count 4.50 3.80 - 5.10 Million/u L [facility] Pint Please Hemoglobin 13.7 11.7 - 15.5 g/dL [facility] Pint Please Hematocrit 41.3 35.9 - 46.0 % [facility] MCV 91.8 81.4 - 101.7 fL [facility] Pint Please MCH 30.4 27.0 - 33.0 pg [facility] Pint Please MCHC 33.2 31.6 - 35.4 g/dL [facility] Pint Please Comment: For adults, a slight decrease in the calculated MCHC value (in the range of 30 to 32 g/dL) is most likely not clinically significant; however, it should be interpreted with caution in correlation with other red cell parameters and the patient's clinical condition. RDW 16.1(H) 11.0 - 15.0 % [facility] Platelet Count 360 140 - 400 Thousand/ uL [facility] MPV 11.3 7.5 - 12.5 fL [facility] Pint Please Abs Neutrophils Auto 11,551(H) 1,500 - 7,800 cells/uL [facility] Pint Please Abs Lymphocytes Auto 1,159 850 - 3,900 cells/uL [facility] Pint Please Abs Monocytes Auto 662 200 - 950 cells/uL [facility] Pint Please Abs Eosinophils Auto 304 15 - 500 cells/uL [facility] Abs Basophils Auto 124 0 - 200 cells/uL [facility] Neutrophils Auto 83.7 % [facility] Pint Please Lymphocytes Auto 8.4 % [facility] Pint Please Monocytes Auto 4.8 % [facility] Pint Please Eosinophils Auto 2.2 % [facility] Basophils Auto 0.9 % [facility] Blood Blood specimen / Unknown 01/21/2025 10:01 AM EST 01/21/2025 10:02 AM EST Narrative [facility] - 01/22/2025 9:39 AM EST FASTING:YES FASTING: YES Angie Valenzuela APRN LAB BLOOD ORDERABLES F inal Result [facility] [address] [place] [address] * (ABNORMAL) Basic metabolic panel (01/21/2025 10:01 AM EST) Pathologist [facility] Glucose 156(H) 65 - 99 mg/dL [facility] Comment: Fasting reference interval For someone without known diabetes, a glucose value >125 mg/dL indicates that they may have diabetes and this should be confirmed with a follow-up test. Blood Urea Nitrogen (BUN) 14 7 - 25 mg/dL [facility] Creatinine 1.04 0.50 - 1.05 mg/dL [facility] Creatinine w/ eGFR 60 > OR = 60 mL/min/1. 73m2 [facility] BUN/Creatinine Ratio SEE NOTE: (calc) [facility] Comment: Not Reported: BUN and Creatinine are within reference range. Sodium 141 135 - 146 mmol/L [facility] Potassium 3.9 3.5 - 5.3 mmol/L [facility] Chloride 103 98 - 110 mmol/L [facility] CO2 24 20 - 32 mmol/L [facility] Calcium 9.0 8.6 - 10.4 mg/dL [facility] Blood Blood specimen / Unknown 01/21/2025 10:01 AM EST 01/21/2025 10:02 AM EST Narrative [facility] - 01/22/2025 9:39 AM EST FASTING:YES FASTING: YES Angie Valenzuela F[employer]ER [employer] MAN LAB BLOOD ORDERABLES F inal Result [facility] [address] [place] [phone] * AEROBIC ANAEROBIC CULTURE W/GRAM STAIN (01/20/2025 10:35 AM EST) Only the most recent of4 resultswithin the time period is included. Floyd Rhodes DPM LAB AMB MICRO ORDERABLES Final R esult * VAS ARTERIAL DUPLEX LEG GRAFT-RIGHT (01/20/2025 9:42 AM EST) Anatomical Region Laterality Modality Ultrasound 01/20/2025 9:15 AM EST Narrative 01/20/2025 10:40 AM EST Table formatting from the original result was not included. Department: [facility] Vascular Lab ([place]) Patient: [id number] (ISELA BUCKLEY) Patient Location: [facility] CPT Code: 02705 ICD-9: Referring Physician: Kelvin Liu MD, RPVI [...] artery atherectomy and angioplasty. Findings: Right PSV MANAGER RECRUITING 96 PFA Prox 65 SFA Prox 90 Popliteal Artery Mid 34 Electronically Signed by: Kelvin Liu MD, RPVI on 2025-01-20 10:40:49 AM End of Report Procedure Note Kelvin Liu MD - 01/20/2025 Department: [facility] Vascular Lab ([place]) Patient: [id number] (ISELA BUCKLEY) Patient Location: [facility] CPT Code: 91901 ICD-9: Referring Physician: Kelvin Liu MD, RPVI [...] tibial artery atherectomy andangioplasty. Findings: Right PSV MANAGER RECRUITING 96 PFA Prox 65 SFA Prox 90 Popliteal Artery Mid 34 Electronically Signed by: Kelvin Liu MD, RPVI on [id number]:40:49 AM End of Report us Kelvin Liu MD VASCULAR LAB ORDERABLES Tameka l Result * VAS ARTERIAL LEG SINGLE LEVEL PRESSURES-RIGHT (01/20/2025 9:42 AM EST) Anatomical Region Laterality Modality Ultrasound 01/20/2025 9:00 AM EST Narrative 01/20/2025 10:41 AM EST Table formatting from the original result was not included. Department: [facility] Vascular Lab ([place]) Patient: [id number] (ISELA BUCKLEY) Patient Location: [facility] CPT Code: 72063 ICD-9: Referring Physician: Kelvin Liu MD, RPVI [...] >200 Electronically Signed by: Kelvin Liu MD, RPVI on 2025-01-20 04:00:45 PM End of Report Procedure Note Kelvin Liu MD - 01/21/2025 Department: [facility] Vascular Lab ([place]) Patient: [id number] (ISELA BUCKLEY) Patient Location: [facility] CPT Code: 14371 ICD-9: Referring Physician: Kelvin Liu MD, KATIE Impression Right ankle pulse volume recording and [...] >200 Electronically Signed by: Kelvin Liu MD, KATIE on [id number]:00:45 PM End of Report Kelvin Liu MD VASCULAR LAB ORDERABLES Edit ed Result - Final * VAS ARTERIAL LEG MULTI LEVEL PRESSURES-RIGHT (10/29/2024 8:44 AM EDT) Anatomical Region Laterality Modality Ultrasound 10/29/2024 8:00 AM EDT Narrative 10/29/2024 9:47 AM EDT Table formatting from the original result was not included. Department: [facility] Vascular [place] Patient: [id number] (ISELA BUCKLEY) Patient Location: [facility] CPT Code: 29555 ICD-9: Referring Physician: Pamela Diego Impression RIGHT: [...] Note Pamela Diego MD - 10/29/2024 Department: [facility] Patient: [id number] (ISELA BUCKLEY) Patient Location: [facility] CPT Code: 11269 ICD-9: Referring Physician: Pamela Diego Impression RIGHT: [...] on 2024-10-29 09:47:25 AM End of Report Pamela Diego MD VASCULAR LAB ORDERABLES Final Result * (ABNORMAL) Hemoglobin A1C with Estimated Average Glucose (10/01/2024 12:35 AM EDT) Hemoglobin A1C 7.0(H) <5.7 % 10/01/2024 2:51 AM EDT [facility] Comment: A1c% Interpretation 5.7 - 6.0 Increase risk of diabetes 6.1 - 6.4 Higher risk of diabetes > or = 6.5 Consistent with diabetes Diabetes Care, 33(Supp 1):S1-S61, 2009 Estimated Average Glucose 154 mg/dL 10/01/2024 2:51 AM T [facility] Blood specimen / Unknown 10/01/2024 12:35 AM EDT 10/01/2024 12:52 AM EDT Arnulfo Barrios MD LAB BLOOD ORDERABLES [place] [address], [address] [address] * LIPID PANEL (10/01/2024 12:35 AM EDT) Cholesterol, Total 173 <200 mg/dL 2024 3:24 AM EDT [facility] Triglycerides 104 <150 mg/dL 10/01/2024 3:24 AM [facility] Cholesterol, HDL 52 >39 mg/dL 10/02/19 3:24 AM [facility] Estimated LDL 100 <130 mg/dL 10/01/2024 3:24 AM T [facility] Comment: NCEP Guidelines: < 100 mg/dL Optimal 100 - 129 mg/dL Near Optimal/Above Optimal 130 - 159 mg/dL Borderline High 160 - 189 mg/dL High >/= 190 mg/dL Very High Cholesterol/HDL Ratio 3.3 0.0 - 5.0 Ratio 10/01/2024 3:24 AM EDT [facility] Comment: Relative Risk Ratio - Male Ratio - Female 0.5 3.4 3.3 1.0 5.0 4.4 2.0 9.6 7.1 3.0 23.4 11.0 10/01/2024 12:3 5 AM EDT 10/01/2024 12:52 AM EDT Arnulfo Barrios MD LAB BLOOD ORDERABLES Final Re sult [address] [address], [address] [address] from Last 3 Months or Most Recently Relevant to Health Maintenance Insurance MEDICARE PART A & B [facility] Advance Directives * Full Code (Latest Code Status on File) Date Activated Date Inactivated Comments 10/03/2024 9:42 AM * Full Code Date Activated Date Inactivated Comments 10/01/2024 2:32 AM 10/03/2024 9:42 AM Question Answer Comments Decision Thoroughly Discussed with: Patient Care Teams Starch Mangle Tender Relationship Specialty Start Date End Date Michael Vogel MD [address] [place] [address] [place] [address] PCP - General Internal Medicine 10/01/24 Pamela Diego MD [address] [place] [id number] Surgery, Vascular 10/21/24
[2025-01-24 11:17] LABS: MANUAL DIFF FLAG NO
[2025-01-24 11:19] LABS: Hematocrit 41.0 % (37.0-47.0); Hemoglobin 13.3 g/dl (12.0-16.0); Imm Gran Abs Auto 0.18 X10*3/uL (0.00-0.03); Imm Gran Pct Auto 1.3 % (0.0-0.4); Lymphocytes Absolute Auto 1.7 X10*3/uL (1.2-4.9); Mean Corpuscular HGB Conc 32.4 g/dl (31.0-35.0); Mean Corpuscular Hemoglobin 28.9 pg (27.0-33.0); Mean Corpuscular Volume 89.1 fL (80.0-98.0); NRBC Abs Auto 0.000 X10*3/uL (0.0-0.012); NRBC Pct Auto 0.0 /100WBC (0.0-0.2); Platelet Count 365 X10*3/uL (160-400); Red Blood Count 4.60 X10*6/uL (4.20-5.50); White Blood Count 13.8 X10*3/uL (4.8-10.8)
[2025-01-24 11:26] LABS: INTERNATIONAL NORM RATIO 1.0 (0.9-1.1); Prothrombin Time 12.1 SEC (11.2-13.5)
--- NOTE | 2025-01-24 11:28 | ED_ITS ---
HPI - Extremity Injury (Lower) General Chief Complaint: Extremity Injury, Lower Stated Complaint: leg pain Time Seen by Provider: 01/24/25 11:04 History of Present Illness ED Provider: Liset Webb NP HPI Narrative: 65-year-old female with medical history significant for RA, diabetic neuropathy, diabetes, hypertension, CAD, hyperlipidemia, asthma, PAD/with vascular insufficiency currently followed by vascular surgery and Podiatry with scheduled surgical operation for January 28, 2025, recently finished a course of ciprofloxacin for chronic wounds to the right foot presents to the ED for evaluation reporting right foot swelling and pain. The pain has recently become more severe, now ongoing for about 3 days. She was trying to wait until her surgery but she could not sleep last night due to extreme pain. She is currently on pain control with Aleve, gabapentin which she does not feel this provides much relief. She is followed by [facility] podiatry and vascular surgery, gets wound debridement every Sunday. Denies any fever, chills. No redness. No increase in drainage from the wounds. She finished ciprofloxacin PO this morning (last dose). No chest pain or pressure, shortness of breath, abdominal pain. Related Data Previous Rx's ?Medication ?Instructions ?Recorded sucralfate 100 mg/mL oral 10 ml PO BID 30 days #600 mL 11/04/23 suspension (Carafate) duloxetine 30 mg capsule,delayed 30 mg PO BID 30 days #60 caps 01/23/24 release nebulizer accessories #1 ea 02/22/24 nebulizers #1 ea 02/22/24 albuterol sulfate 2.5 mg/3 mL 2.5 mg (3 mL) continuous 03/11/24 (0.083 %) solution for nebulization nebulization QID P RN shortness of breath or wheezing 30 days #180 mL rosuvastatin 40 mg tablet (Crestor) 40 mg PO DAILY 90 days #90 tabs 04/12/24 ondansetron 4 mg disintegrating 4 mg PO Q8H PRN nausea and 04/29/24 tablet vomiting #30 tabs blood sugar diagnostic (FreeStyle 1 strip miscellaneou s TID #100 05/15/24 Test strips) strips lisinopril 20 mg tablet 20 mg PO DAILY #90 tabs 05/27 09/19 lancets 28 gauge (FreeStyle #100 ea 07/01/24 Lancets) Ventolin HFA 90 mcg/actuation 2 puff inhalation Q6H MT N 08/21/24 aerosol inhaler (albuterol sulfate) bronchospasm #18 g miki omeprazole 20 mg capsule,delayed 20 mg PO DAILY 90 day s #90 caps 09/12/24 release oxycodone 30 mg tablet 30 mg PO Q12H pain 28 days # 56 tabs 12/17/24 albuterol sulfate 2.5 mg/3 mL 2.5 mg (3 mL) inhalation Q4-6H PRN 12/18/24 (0.083 %) solution for nebulization Wheezing #75 mL metformin 1,000 mg tablet 1,000 mg PO BID #180 tabs zolpidem 10 mg tablet 10 mg PO BEDTIME PRN insomni a 30 12/26/24 days #30 tabs ciprofloxacin HCl 500 mg tablet 500 mg PO BID 5 days # 10 tabs 01/10/25 oxycodone 5 mg tablet 5 mg PO Q8H PRN pain 4 days #14 01/10/25 tabs prednisone 20 mg tablet 20 mg PO DAILY 7 days #7 tab s 01/10/25 nystatin 100,000 unit/mL oral 10 ml buccal TID 10 days #300 mL 01/23/25 suspension Allergies Allergy/AdvReac Type Severity Reaction Status Date / Time No Known Allergies Allergy Verified 01/24/25 10:27 Review of Systems 2 Review of Systems: ROS is otherwise negative unless mentioned in HPI. [facility] Past Medical History Medical History (Updated 01/24/25 @ 15:13 by LOLIS Mao-) Lumbar degenerative disc disease Mixed hyperlipidemia Venous insufficiency of both lower extremities Abnormal bruising Obesity (BMI 30-39.9) Anxiety Insomnia GERD (gastroesophageal reflux disease) Vitamin D deficiency Ureterolithiasis Neuropathy Varicose veins of bilateral lower extremities with pain Rheumatoid arthritis Cervical spondylosis with radiculopathy Asthma Iron deficiency anemia, unspecified Vitamin B12 deficiency Hyperlipidemia Hypertension, essential, benign Diabetes mellitus Surgical History (Updated 12/08/24 @ 13:16 by Michael Vogel MD) History of atherectomy Hx of lithotripsy History of surgery on left wrist History of surgery on right wrist History of arthroplasty of left ankle History of arthroplasty of right ankle S/P VANESSA-BSO (total abdominal hysterectomy and bilateral salpingo-oophorectomy) History of arthroplasty of right knee (~2008) Family History Family History Father Chronic mental illness Mother Diabetes Hypertension Stroke Sister Heart disease Diabetes Social History Social History Household Members: Family Housing: Apartment Alcohol intake: never Patient Tobacco Use Status: Former Tobacco user Years Smoked: quit 6 years ago e-Cigarette/Vaping Use: Never Used Second Hand Smoke Exposure: No Substance Use Type: Prescription Drugs Advance Directives: No Advance Directives Information Provided: Yes Do you have a plan to hurt others: No Plan service: No Current occupational status: disabled Cognitive needs: No (cane) Hearing needs: No Vision needs: Yes (glasses) Physical Exam 2 Exam: Exam: Nursing notes and vital signs reviewed. Constitutional: Well-appearing, NAD. Alert. Oriented X3. Eyes: EOMI. ENT: Oropharynx normal. Neck: Normal inspection. Neck supple. CVS: Normal heart rate and rhythm. Pulses normal. Respiratory: No respiratory distress. Breath sounds normal. Abdomen: Soft and nontender, nondistended. Skin: Skin warm and dry. Normal skin color. Right foot with chronic appearin wounds. See photos. Extremities: No lower extremity edema. Neuro: Oriented X 3. No motor deficit. Vital Signs: Vital Signs: Last Vital Signs Temp 97.8 F 01/24/25 14:21 Pulse 102 H 01/24/25 14:21 Resp 16 01/24/25 14:21 BP 131/75 01/24/25 14:21 Pulse Ox 99 01/24/25 14:21 O2 Del Method Room Air 01/24/25 14:21 BMI result Body Mass Index 30.7 Medications Administered Discontinued Medications Generic Name Dose Route Start Last Admin Trade Name Freq PRN Reason Stop Dose Admin Hydromorphone HCl 0.5 mg 01/24/25 13:12 01/24/25 13:18 Hydromorphone Hcl 0.5 Mg/0.5 Ml Syringe IVPUSH 01/24/25 13:13 0.5 mg ONCE ONE Administration Protocol Morphine Sulfate 4 mg 01/24/25 11:20 01/24/25 11:29 Morphine Sulfate 4 Mg/Ml Cartridge IVPUSH 01/24/25 11:21 4 mg ONCE ONE Administration Protocol Medical Decision Making Medical Decision Making [facility] Narrative: On exam, she has what appears to be chronic foot wounds, with 2+ pedal pulses to palpation. She is not complaining of any increase in drainage, denies any odors from the wound. There is currently of the dressing intact her was applied. It is clean, dry. There is a small amount of drainage from the wound, but is not odorous. She recently completed a course of ciprofloxacin, today is her last dose. She denies any fever, chills. We will obtain basic lab work, as well as x-ray to rule underlying osteomyelitis given the increase in pain. However, the patient has scheduled surgery with vascular surgery at of [facility] on January 28. She recently had a arterial duplex scan which showed normal Doppler waveforms in the common femoral artery, not consistent with inflow disease. Proximal profunda artery is patent, proximal superficial femoral artery and popliteal artery are patent with normal Doppler waveforms. Findings of right PSV, [employer] PROPERTY [employer]NAG[employer] 96, PFA prox 65, SFA prox 90, popliteal artery mid 34. From most recent labs from [facility], her white blood cell count was 13.8, stable H&H at 13.7 and 41.3. , there is no indication to repeat this imaging today as she has a scheduled appointment coming up in 5 days. We will administer a dose of pain control in the ED. 1308-- Lab work overall reassuring, CRP is mildly elevated at 3.75, though she has been this high previously. Sed rate of 49, also mildly elevated in comparison to previous. Leukocytosis of 13.8, it appears stable in comparison to her previous labs outpatient. She finished a course of antibiotics today, there does not appear to be any clinical signs of infection. However, she is reporting significant pain despite IV push morphine in the ED. We will administer a dose of Dilaudid and attempt to consult vascular surgery out of [place], looking for further recommendations for testing and further management (i.e. CTA of the lower extremity to re-assess for flow, antibiotics, pain control). 1520-- I received a call back from the [place] transfer center, vascular surgery was contacted by the transfer center line (Dr. Pamela Diego), who recommends transfer to [place] ED at this time. I was not able to speak with her via the phone. ED to ED transfer was accepted under Dr. Fierro, however caleb nichols is not agreeable to this transfer. The patient and her are both adamant they will not be going to [facility] if they have to see this provider, and they do not like this provider and have had negative past experiences. Therefore, they have declined transfer and now would like to leave the hospital against medical advice. I discussed with him extensively that I can call [place] back and ask if there are other vascular surgeons available, but they have again declined. They do not want to go given the time of day, and report that they will go tomorrow if the pain becomes more severe. In the ED she has received both morphine and Dilaudid and reports only mild improvement in her symptoms, I stressed that potential complications could include permanent disability, and if she does not continue additional testing and workup/treatment. Her is at bedside and agreeable to this as well, he was witnessed to this conversation and they are deciding to leave against medical advice at this time. Stressed return precautions. Differential Diagnosis Differential Diagnoses: The differential diagnosis associated with the presentation includes Osteomyelitis, diminished arterial flow/arterial occlusion, cellulitis, nerve pain Admission/Observation Consideration of admission/observation: Escalation of care including admission/observation considered (Not indicated) Lab Data MDM Lab Attestation statement: I reviewed the patient's lab results. 01/24/25 11:12 01/24/25 11:12 Labs: Lab Results 01/24/25 Range/Units 11:12 WBC 13.8 H (4.8-10.8) X10*3/uL RBC 4.60 (4.20-5.50) X10*6/uL Hgb 13.3 (12.0-16.0) g/dl Hct 41.0 (37.0-47.0) % MCV 89.1 (80.0-98.0) fL MCH 28.9 (27.0-33.0) pg MCHC 32.4 (31.0-35.0) g/dl RDW 17.3 H (11.0-16.0) % Plt Count 365 (160-400) X10*3/uL MPV 10.9 (9.4-12.3) fL Immature Gran % (Auto) 1.3 H (0.0-0.4) % Neut % (Auto) 74.6 H (45-73) % Lymph % (Auto) 12.6 L (20-40) % [place] % (Auto) 9.1 (2-11) % Eos % (Auto) 1.7 (0-4) % Baso % (Auto) 0.7 (0-2) % Lymph # (Auto) 1.7 (1.2-4.9) X10*3/uL [place] # (Auto) 1.3 H (0.1-1.2) X10*3/uL Eos # (Auto) 0.2 (0.0-0.4) X10*3/uL Baso # (Auto) 0.1 (0.0-0.2) X10*3/uL Abs Immat Gran (auto) 0.18 H (0.00-0.03) X10*3/uL Absolute Neuts (auto) 10.3 H (2.0-8.3) x10*3/uL Absolute Nucleated RBC 0.000 (0.0-0.012) X10*3/uL Nucleated RBC % (auto) 0.0 (0.0-0.2) /100WBC ESR 49 H (0-20) MM/HR PT 12.1 (11.2-13.5) SEC INR 1.0 (0.9-1.1) Sodium 143 (135-145) mmol/L Potassium 4.4 (3.3-5.1) mmol/L Chloride 108 (96-108) mmol/L Carbon Dioxide 24 (22-29) mmol/L Anion Gap 15 (12-20) BUN 13 (9-16) mg/dL Creatinine 1.03 (0.5-1.4) mg/dL Estim Creat Clear Calc 52.0 Estimated GFR 54 Random Glucose 120 H (60-115) mg/dL Calcium 9.5 (8.4-10.2) mg/dL Total Bilirubin 0.4 (0.0-1.0) mg/dL AST 29 (5-31) U/L ALT 14 (0-31) U/L Alkaline Phosphatase 89 (39-117) U/L C-Reactive Protein 3.75 H (< or = 0.50) mg/dL Total Protein 7.7 (6.5-8.0) g/dL Albumin 4.0 (3.5-5.0) g/dL Independent Interpretation I performed an independent interpretation of an: Plain X-Ray Interpretation: I have reviewed the patient's imaging and agree with the radiologist's findings. Radiology Impression Discussion of test interpretation with radiology: I have reviewed the radiologist's reading. Radiologist Impression: IMPRESSION: No definite erosions or periostitis to suggest osteomyelitis. Independent Historian Clinical information obtained from an independent historian. History obtained from or confirmed by: Spouse ( at bedside) External Record Review External record reviewed: Outpatient record (From [facility], via patient's phone) and Prior outpatient labs ([facility], via patient's phone) Chronic Conditions Patient?s care impacted by: Diabetes, Hypertension and Other (PAD) Social Determinants Patient?s care significantly limited by Social Determinants of Health including: Problems related to primary support group Discharge Plan Discharge Clinical Impression: Foot pain, right, Arterial insufficiency Patient Disposition: Left Against Medical Advice Instructions: Angiography (DC) Additional Instructions: As we discussed, we wanted to send you to [facility] via ambulance today for additional workup given your foot pain, and chronic wounds. We offered you this testing in transfer, but you have declined at this time and are leaving the hospital against medical advice. We discussed extensively that you are leaving against medical advice, and the possibility of permanent disability or as your workup/treatment plan have not been completed. Please follow up with [facility] vascular surgery as soon as possible. If you develop any worsening pain, fever, chills or other symptoms that we discussed, please seek re-evaluation in the ED promptly. Prescriptions: No Action sucralfate [Carafate] 100 mg/mL suspension 10 ml PO BID 30 Days Qty: 600 0RF (DME) [place]bulizers [facility] [place] Rx Instructions .Route Qty: 1 0RF Rx Instructions: As directed (DME) nebulizer accessories Kit See Rx Instructions .Route Qty: 1 0RF Rx Instructions: As directed albuterol sulfate 2.5 mg /3 mL (0.083 %) solution for nebulization 2.5 mg continuous nebulization QID PRN (Reason: shortness of breath or wheezing) 30 Days Qty: 180 3RF rosuvastatin [Crestor] 40 mg tablet 40 mg PO DAILY 90 Days Qty: 90 3RF ondansetron 4 mg tablet,disintegrating 4 mg PO Q8H PRN (Reason: nausea and vomiting) Qty: 30 0RF FreeStyle Test Strip 1 strip miscellaneous TID Qty: 100 3RF lisinopril 20 mg tablet 20 mg PO DAILY Qty: 90 3RF (DME) lancets [FreeStyle Lancets] 28 gauge misc See Rx Instructions .Route Qty: 100 0RF Rx Instructions: As directed three times per day albuterol sulfate [Ventolin HFA] 90 mcg/actuation HFA aerosol inhaler 2 puff inhalation Q6H PRN (Reason: bronchospasm) Qty: 18 5RF omeprazole 20 mg capsule,delayed release(DR/EC) 20 mg PO DAILY 90 Days Qty: 90 1RF oxycodone 30 mg tablet 30 mg PO Q12H 28 Days Qty: 56 0RF albuterol sulfate 2.5 mg /3 mL (0.083 %) solution for nebulization 2.5 mg inhalation Q4-6H PRN (Reason: Wheezing) Qty: 75 3RF zolpidem 10 mg tablet 10 mg PO BEDTIME PRN (Reason: insomnia) 30 Days Qty: 30 1RF metformin 1,000 mg tablet 1,000 mg PO BID Qty: 180 0RF nystatin 100,000 unit/mL suspension 10 ml buccal TID 10 Days Qty: 300 0RF Rx Instructions: swish 1/2 of dose in each side of the mouth for up to 5 minutes, then spit out the medicine prednisone 20 mg tablet 20 mg PO DAILY 7 Days Qty: 7 0RF ciprofloxacin HCl 500 mg tablet 500 mg PO BID 5 Days Qty: 10 0RF oxycodone 5 mg tablet 5 mg PO Q8H PRN (Reason: pain) 4 Days Qty: 14 0RF Rx Instructions: Partial Fill upon patient request. duloxetine 30 mg capsule,delayed release(DR/EC) 30 mg PO BID 30 Days Qty: 60 3RF Referrals: Mansoor Olivas MD [Physician, Vascular Surgery] Print Language: Belarusian
[2025-01-24 11:29] VITALS: RESP 17
[2025-01-24 11:35] LABS: Alanine Aminotransferase 14 U/L (0-31); Albumin Level 4.0 g/dL (3.5-5.0); Alkaline Phosphatase 89 U/L (39-117); Anion Gap 15 (12-20); Aspartate Amino Transferase 29 U/L (5-31); Blood Urea Nitrogen 13 mg/dL (9-16); Calcium 9.5 mg/dL (8.4-10.2); Carbon Dioxide 24 mmol/L (22-29); Chloride 108 mmol/L (96-108); Creatinine Clr Calc Pharmacy 52.0; Estimated Glomerular Filt Rate 54; Potassium 4.4 mmol/L (3.3-5.1); Sodium 143 mmol/L (135-145); Total Protein 7.7 g/dL (6.5-8.0)
[2025-01-24 11:59] LABS: Erythrocyte Sedimentation Rate 49 MM/HR (0-20)
[2025-01-24 12:06] VITALS: BP 130/98; PULSE 108; RESP 16; TEMP 36.8; O2SAT 100
[2025-01-24 13:18] VITALS: RESP 16
--- NOTE | 2025-01-24 13:30 | PC.NURSE ---
Doppler for pedal pulses performed. Pules noted, faint but present. Pt tolerated procedure well.
[2025-01-24 14:21] VITALS: BP 131/75; PULSE 102; RESP 16; TEMP 36.6; O2SAT 99
[2025-01-24 15:44] VITALS: BP 131/75; PULSE 102; RESP 16; TEMP 36.6; O2SAT 99
== END 2025-01-24 15:45 | disposition left against medical advice (07) ==
PROVIDERS: Physician Assistant Medical; Emergency Provider Emergency Medicine; PCP Internal Medicine
DX: M79.671 Pain in right foot (principal); I77.1 Stricture of artery; I10 Essential (primary) hypertension; E78.5 Hyperlipidemia, unspecified; E11.9 Type 2 diabetes mellitus without complications; Z87.891 Personal history of nicotine dependence
CPT/HCPCS: 36415; 73630; 80053; 85025; 85610; 85652; 86140; 96374; 96375; 99284; J1171; J2270

== ENCOUNTER → 2025-01-24 11:20 | Outpatient (BNV) | payer MEDICARE, MEDICAID, SELFPAY | PROVIDERS: PCP Internal Medicine; Visit Provider Radiology Diagnostic Radiology | DX: Z03.89 Encounter for observation for other suspected diseases and conditions ruled out (principal) | CPT/HCPCS: 73630 ==

== ENCOUNTER 2025-02-11 08:29 | Outpatient (AMB) | payer MEDICARE, MEDICAID, SELFPAY ==
--- OUTSIDE RECORDS SUMMARY | 2025-02-10 08:15 | XMS_ITS | Encounter Summary ---
Author Organization [facility] Address [address] [place] [address] Care Team Providers Care [employer] Foreign Language Tutor Name Role Phone Michael Vogel MD Primary Care Provider [phone] Pamela Diego MD Unavailable [phone] Reason for Visit * Reason Comments Wound Check Wound check R foot Encounter Details Date Type Department Care Team ([facility] st Contact Info) Description 02/10/2025 8:15 AM EST Office Visit [facility] Podiatric Surgery [address] [place] [address] Floyd Rhodes DPM [address] [facility] [address] [place] [address] Diabetes mellitus with peripheral circulatory disorder (HCC) (Primary Dx); Ulcerated, foot, right, with fat layer exposed (HCC); Ulcer of great toe, right, limited to breakdown of skin (HCC); Gangrene of toe of right foot (HCC); Blister of right foot, initial encounter; Ingrowing nail, right great toe Social History Tobacco Use Types Packs/Day Years Used Date Smoking Tobacco: Former Cigarettes 0 Q uit: 2013 Smokeless Tobacco: Never Comments:Quit smoking over 5 0 yrs ago Alcohol Use Standard Drinks/Week Comments Not Currently 0 (1 standard drink = 0.6 oz pur e alcohol) PHQ-2 Answer Date Recorded PHQ-2 Total Score 2 01/26/2025 PRAPARE - Transportation Answer Date Re corded In the past 12 months, has l ack of transportation kept you from medical appointments or from getting medications? No 08/2024 In the past 12 months, has l ack of transportation kept you from meetings, work, or from getting things needed for daily living? No 10/02/2024 AUDIT-C Answer Date Recorded Q1: How often do you have a drink containing alcohol? Never 01/26/2025 Q2: How many drinks containi ng alcohol do you have on a typical day when you are drinking? Patient does not drink Q3: How often do you have si x or more drinks on one occasion? Never 01/26/2025 Hunger Vital Sign Answer Date Recorded Within the past 12 months, y ou worried that your food would run out before you got the money to buy more. Never true 01/28/20 25 Within the past 12 months, t he food you bought just didn't last and you didn't have money to get more. Never true 01/27/2025 PRAPARE - Transportation Answer Date Re corded In the past 12 months, has l ack of transportation kept you from medical appointments or from getting medications? No 03/2024 In the past 12 months, has l ack of transportation kept you from meetings, work, or from getting things needed for daily living? No 01/27/2025 Housing Stability Vital Sign Answer Nigel e Recorded In the last 12 months, was t here a time when you were not able to pay the mortgage or rent on time? No 01/27/2025 In the past 12 months, how m any times have you moved where you were living? 0 01/27/2025 At any time in the past 12 m [facility], were you homeless or living in a alf (including now)? No 01/27/2025 [facility] Utilities Answer Date Recorded In the past 12 months has th e electric, gas, oil, or water company threatened to shut off services in your home? No 01/27/2025 Comments Unknown Sex and Gender Information Value Date Recorded Sex Assigned at Female 10/01/2024 3:34 AM EDT Legal Sex Female 9:47 PM EDT Gender Identity Female 10/01/2024 3:34 AM EDT Sexual Orientation Heterosexual (straight) 10/01 3:34 AM EDT documented as of this encounter Last Filed Vital Signs Vital Sign Reading Time Taken Comments Blood Pressure - - Pulse 77 02/10/2025 8:03 AM EST Temperature - - Respiratory Rate - - Oxygen Saturation 99% 02/10/2025 8:03 AM EST Inhaled Oxygen Concentration - - Weight 56.7 kg (125 lb) 02/10/2025 8:03 AM EST Height 157.5 cm (5' 2 ) 02/10/2025 8:03 AM EST Body Mass Index 22.86 02/10/2025 8:03 AM EST documented in this encounter Progress Notes * Floyd Rhoeds DPM - 02/10/2025 8:40 AM EST The patient presents for FU of the ulcers to the right foot. The patient relates that her pain has improved but she has developed a bubble to the right foot. The patient is also concerned about knotsto the right lower leg which were not there before her vascular intervention. The patient alos relates that there has been drainage from the medial border of the right great toe. The patient dresses the ulcers with mesalt. The patient relates that sometimes her right leg will give out. The patient does not have any other complaints at this time. Vitals: 02/10/25 0803 Pulse: 77 SpO2: 99% Weight: 56.7 kg (125 lb) Height: 1.575 m (5' 2 ) Physical Exam Lower Extremity DP pulse is 0/4 to the right foot PT pulse is 0/4 to the right foot CFT is 2 seconds to the digits of the right foot. There is ecchymosis to the distal aspects of the lesser digits of the right foot. Temperature gradient WNL right Protective sensation intact as per [employer] Nav 5.07 monofilament wire Muscle power 5/5 right Motor function intact right There is slight edema to the dorsal aspect of the right fore foot The right foot is warm. There are 2 palpable subcutaneous masses to the posterior medial aspect of the right lower leg. There is pain on palpation of both of these areas. The ulcer to the dorsal aspect of the 1st intermetatarsal space of the right foot measures 1.4cm x 0.5cm. The base of the ulcer is granular. There is no purulence expressed. There is no ascending cellulitis noted. The ulcer to the dorsal lateral aspect of the base of the right great toe measures 1.1cm x 0.3cm. There is no purulence expressed. There is no ascending cellulitis noted. There is a resolving blister to the dorsal aspect of the 5th MTPJ right foot There is ecchymosis to the distal aspect of the 2nd - 4th digits of the right foot There is an ingrown nail to the medial border of the right great toe Assessment: 1. Diabetes mellitus with peripheral circulatory disorder ([facility]) 2. Ulcerated, foot, right, with fat layer exposed ([facility]) 3. Ulcer of great toe, right, limited to breakdown of skin ([facility]) 4. Gangrene of toe of right foot ([facility]) 5. Blister of right foot, initial encounter 6. Ingrowing nail, right great toe Plan: 1. The ulcers were not debrided today. They will continue to be dressed with Mesalt daily. The patient has superficial gangrene to the 2nd, 3rd and 4th digits of the right foot and has a resolving serous blister to the dorsal aspect of the fifth MTPJ of the right foot. I have discussed with the patient that in the process of her endovascular procedure it is quite possible that an embolic shower could have occurred. I do not think that her toes are at risk at this time. The patient has 2 lumps to the posterior medial aspect of the right lower leg. These are likely related to the patient's endovascular procedure. These were examined by vascular surgery during her appointment. I have advised the patient to try applying warm compresses to these areas to see if that will help. The offending border of the ingrown nail was cut and removed via slant back procedure. I will see the patient back in 1 week for reassessment. The patient has been instructed to contact the office should any issues arise. In regards to the patient's right lower leg giving out at times when walking this could be related to her peripheral artery disease. The patient will continue ambulating with a walker or rollator. documented in this encounter Plan of Treatment Upcoming Encounters Date Type Department Care Team (Late st Contact Info) Description 02/17/2025 8:15 AM EST Office Visit [facility] Podiatric Surgery [address] [place] [phone] Floyd Rhodes, DPM [address] [facility] [address] [place] [address] 05/18/2025 8:00 AM EDT Ancillary Procedure [facility] Vascular & Endovascular Surgery [address] [phone] Pamela Diego MD [address] [id number] 05/18/2025 8:30 AM EDT Ancillary Procedure [facility] Vascular & Endovascular Surgery [address] [phone] Mansoor Olivas MD [address] [place] [address] 05/18/2025 9:00 AM EDT Ancillary Procedure [facility] Vascular & Endovascular Surgery [address] [phone] Mansoor Olivas MD [address] [place] [address] 05/18/2025 9:00 AM EDT Office Visit [facility] Vascular & Endovascular Surgery [address] [phone] Mansoor Olivas MD [address] [place] [address] documented as of this encounter Visit Diagnoses Diagnosis Diabetes mellitus with peripheral circulatory disorder (HCC)- Primary Type II or unspecified type diabetes mellitus with peripheral circulatory disorders, not stated as uncontrolled Ulcerated, foot, right, with fat layer exposed (HCC) Ulcer of great toe, right, limited to breakdown of skin (HCC) Gangrene of toe of right foot (HCC) Blister of right foot, initial encounter Ingrowing nail, right great toe Ingrowing nail documented in this encounter Care Teams High [employer] Foreign Language Tutor Relationship Specialty Start Date End Date Michael Vogel MD [address] [place] [address], [place] [address] PCP - General Internal Medicine 10/01/24 Pamela Diego MD [address] [place] [id number] Surgery, Vascular 10/21/24 documented as of this encounter
--- NOTE | 2025-02-11 08:28 | A.OFFVIS_ITS ---
Vital Signs 02/11/25 08:37 BP 124/72 Blood Pressure Location Rt brachial Position Sitting Pulse 129 H Pulse Source Pulse Oximeter Pulse Oximetry (%) 99 Oxygen Delivery Method Room Air Intake Visit Reasons: INP-Tremors Intake Note: Tremors, DM Neuropathy Metal Fence Erector Required: No Accompanied by: Spouse Allergies No Known Allergies Allergy (Verified 02/11/25 08:28) Medication List - Last Reconciled 02/11/25 by Cristy Holden MD albuterol sulfate 2.5 mg (3 mL) continuous nebulization QID PRN 30 days albuterol sulfate 2.5 mg (3 mL) inhalation Q4-6H PRN blood sugar diagnostic (FreeStyle Test strips) 1 strip miscellaneous TID lancets (FreeStyle Lancets) As directed three times per day lisinopril 20 mg PO DAILY metformin 1,000 mg PO BID nebulizer accessories As directed nebulizers As directed nystatin 10 mL buccal TID 10 days omeprazole 20 mg PO DAILY 90 days ondansetron 4 mg PO Q8H PRN oxycodone 5 mg PO Q8H PRN 4 days oxycodone 30 mg PO Q12H 28 days rosuvastatin (Crestor) 40 mg PO DAILY 90 days sucralfate (Carafate) 10 mL PO BID 30 days tramadol 50 mg PO TID PRN Ventolin HFA 90 mcg/actuation (albuterol sulfate) 2 puffs inhalation Q6H PRN NS zolpidem 10 mg PO BEDTIME PRN 30 days HPI Comments Details: 65y/o female comes for evaluation of tremors, weakness, falls and neuropathy. she has h/o diabetes H/o Rheumatoid arthritis H/o PVD for many years now. she has episodic numbness and tingling in her feet atleast for 2-3 years now . she has chronic neck and back pain - was seen by [facility] . she also has peripheral vascular disease- f/u vascular surgeon - Ksenia Tremors - are mild and with action or posture - intermittent - she describes as a jerking . It does not bother her. Now she reports difficulty walking 2-3 days ago - has trouble getting out of bed, feels weak. she denies incontinence - has urgency No falls. 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 Lumbar degenerative disc disease Mixed hyperlipidemia Venous insufficiency of both lower extremities Abnormal bruising Obesity (BMI 30-39.9) Anxiety Insomnia GERD (gastroesophageal reflux disease) Vitamin D deficiency Ureterolithiasis Neuropathy Varicose veins of bilateral lower extremities with pain Rheumatoid arthritis Cervical spondylosis with radiculopathy Asthma Iron deficiency anemia, unspecified Vitamin B12 deficiency Hyperlipidemia Hypertension, essential, benign Diabetes mellitus Surgical History History of atherectomy Hx of lithotripsy History of surgery on left wrist History of surgery on right wrist History of arthroplasty of left ankle History of arthroplasty of right ankle S/P VANESSA-BSO (total abdominal hysterectomy and bilateral salpingo-oophorectomy) History of arthroplasty of right knee (~2008) Family History Father Chronic mental illness Mother Diabetes Hypertension Stroke Sister Heart disease Diabetes Social History Household Members: Family Housing: Apartment Alcohol intake: never Patient Tobacco Use Status: Former Tobacco user Years Smoked: quit 6 years ago e-Cigarette/Vaping Use: Never Used Second Hand Smoke Exposure: No Substance Use Type: Prescription Drugs service: No Current occupational status: disabled Cognitive needs: No (cane) Hearing needs: No Vision needs: Yes (glasses) Physical Exam Vital Signs: Last Vital Signs Pulse 129 H 02/11/25 08:37 BP 124/72 02/11/25 08:37 Pulse Ox 99 02/11/25 08:37 Oxygen Delivery Method Room Air 02/11/25 08:37 Const General: cooperative, in distress and ill appearing Nutritional Appearance: average body habitus Orientation/consciousness: patient oriented x3 Limitations: physical limitations and wheelchair Eyes Pupils: Equal, round and reactive pupils present Neuro Other: antecollis- wekaness of neck extension , head drop, tenderness in simon cervicla muscles and posterior cervicla muscles weakness of shoulders UE 3/5 Tone normal LE 4/5 she could not stand up from her wheelchair She had deformed wrist joints due to arthritis Very infrequent mild tremors Speech - normal General: patient oriented x3 and Unable to assess gait Cranial nerves: Yes Facial sensation intact/muscles of mastication intact, Yes Equal, round and reactive pupils present, Yes Bilaterally intact EOM present, Yes Nystagmus not present, Yes Normal facial strength present and Yes Midline tongue present Cognition (Neuro): normal cognition Gait exam (Neuro): Unable to assess gait Deep tendon reflexes (DTR's): Right triceps reflex intensity grade: 1+, Left triceps reflex intensity grade: 1+, Rt Biceps (C5, C6): 2+, Left biceps reflex intensity grade: 2+, Right brachioradialis reflex intensity grade: 1+, Right patellar reflex intensity grade: 2+, Left patellar reflex intensity grade: 2+, Right ankle reflex intensity grade: 0 and Left ankle reflex intensity grade: 0 Assessment & Plan Assessment & Plan (1) Dropped head syndrome: Code(s): R29.898 - Other symptoms and signs involving the musculoskeletal system Category: Medical (2) Cervical spondylosis with radiculopathy: Code(s): M47.22 - Other spondylosis with radiculopathy, cervical region Category: Medical (3) Neuropathy: Comment: Repeat NCV and EMG done in November 2017 revealed findings consistent with neuropathy Code(s): G62.9 - Polyneuropathy, unspecified Category: Medical (4) Tremor of both hands: Code(s): R25.1 - Tremor, unspecified Category: Medical Plan She has a complex medical history - with PVD Rheumatoid and Diabetes , chronci lumbar and cervicla spondylosis Though she was referred her for tremors which are likely physiological tremors and neuropathy which is likely diabetes her main concerns today are sudden weakness and head drop for past 3 days . she denies any bladder incontinence . I will order MRI C spine to r/o cord compression and EMG. Suggested to go to ER if her weakness worsens. Orders: Orders NE electromyogram (EMG) Today R20.0 - Anesthesia of skin, R20.2 - Paresthesia of skin NE nerve conduction velocity Today R20.0 - Anesthesia of skin, R20.2 - Paresthesia of skin MR cervical spine wo con Today G95.20 - Unspecified cord compression, M47.22 - Other spondylosis with radiculopathy, cervical region, R29.898 - Other symptoms and signs involving the musculoskeletal system, R53.1 - Weakness Coding Level of Care Code New Pt Level 4 (80648) Add On Problem Visit Only Diagnoses Dropped head syndrome R29.898 Cervical spondylosis with radiculopathy M47.22 Neuropathy G62.9 Tremor of both hands R25.1
[2025-02-11 08:37] VITALS: BP 124/72; PULSE 129; O2SAT 99
--- OUTSIDE RECORDS SUMMARY | 2025-02-11 08:42 | XMS_ITS | Clinical Summary ---
Author Organization [facility] Address [address] [place] [address] Phone Care Team Providers Care Spiritual Advisor Name Role Phone Michael Vogel MD Primary Care Provider [phone] Social History Tobacco Use Types Packs/Day Years [...] topic Medical Devices Not on file [facility] [place] [id number] [facility] Care Teams Spiritual Advisor Relationship Specialty Start Date End Date Michael Vogel MD [address] [place] [address] [place] [address] PCP - General Internal Medicine 01/10/24 Additional Source Comments The information contained in this document represents components of the legal health record. It is not the complete legal health record.[facility]
--- OUTSIDE RECORDS SUMMARY | 2025-02-11 08:43 | XMS_ITS | Clinical Summary ---
Author Organization [facility] Address [address] [place] [address] Care Team Providers Care Train Operations Manager Name Role Phone Michael Vogel MD Primary Care Provider [phone] Pamela Diego MD Unavailable [phone] Allergies No known active allergies Medications Ventolin HFA 108 (90 Base) MCG/ACT inhaler INHALE 2 PUFFS EVERY 6 HOURS NEEDED FOR BRONCHOSPASM 08/22/19 25 Active lisinopril (PRINIVIL,ZeST RIL) 20 MG tablet Take 1 tablet (20 mg total) by mouth daily. 07/25/19 25 Active metFORMIN (GLUCOPHAGE) 1000 MG tablet Take 1 tablet (1,000 mg total) by mouth 2 (two) times a day with meals. 09/23/19 25 Active OMEprazole (PriLOSEC) 20 MG capsule Take 1 capsule (20 mg total) by mouth every morning before breakfast. 09/13/19 25 Active rosuvastatin (CRESTOR) 40 MG tablet Take 1 tablet (40 mg total) by mouth daily. 07/15/19 25 Active zolpidem (AMBIEN) 10 MG tablet Take 1 tablet (10 mg total) by mouth nightly. 09/30/19 25 Active clopidogrel (PLAVIX) 75 MG tabletIndicati ons:Atheroscle rosis of manzanita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 (HCC) Take 1 tablet (75 mg total) by mouth daily. 90 tablet 3 01/29/20 25 2025 Active aspirin enteric coated (ECOTRIN LOW STRENGTH) 81 MG EC tabletIndicati ons:Stenosis of superficial femoral artery Take 1 tablet (81 mg total) by mouth daily. 90 tablet 3 01/29/20 25 Active gabapentin (NEURONTIN) 300 MG capsuleIndicat ions:Periphera l vascular disease of lower extremity Take 1 capsule (300 mg total) by mouth 2 (two) times a day. 60 capsule 5 01/29/20 25 2025 Active acetaminophen (TYLENOL) 325 MG tabletIndicati ons:Peripheral vascular disease of lower extremity Take 3 tablets (975 mg total) by mouth every 6 (six) hours around the clock. 01/29/20 25 2025 Active traMADol (ULTRAM) 50 MG tabletIndicati ons:Peripheral vascular disease of lower extremity Take 1 tablet (50 mg total) by mouth 4 times daily (every 6 hours) as needed for severe pain. 25 tablet 01/29/20 25 Active lidocaine (LIDODERM) 5 % patchIndicatio ns:Atheroscler osis of manzanita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 (HCC) Place 1 patch on the skin daily. Apply patch and leave on for 12 hours then remove. Patch may remain on skin for 12 hours per day. 90 patch 02/04/20 25 Active FREESTYLE TEST STRIPS test strip 3 (three) times a day. Use as directed 08/02/19 25 2024 Discontinued(M ed List Clean-up/Old Med - No E-Cancel/No AVS) FreeStyle Lancets lancet DIRECTED THREE TIMES PER DAY 07/02/19 25 2024 Discontinued(M ed List Clean-up/Old Med - No E-Cancel/No AVS) oxyCODONE (ROXICODONE) 30 MG immediate release tablet Take 1 tablet (30 mg total) by mouth 3 times daily (every 8 hours) as needed for severe pain. 09/03/19 25 2024 Discontinued(S top Taking at Discharge) predniSONE (DELTASONE) 10 MG tablet Take 1 tablet (10 mg total) by mouth daily. 09/19/19 25 2024 Discontinued(M ed List Clean-up/Old Med - No E-Cancel/No AVS) amLODIPine (NORVASC) 5 MG tabletIndicati ons:Stenosis of superficial femoral artery Take 1 tablet (5 mg total) by mouth daily. 30 tablet 10/08/19 25 2024 Discontinued(M ed List Clean-up/Old Med - No E-Cancel/No AVS) aspirin enteric coated (ECOTRIN LOW STRENGTH) 81 MG EC tabletIndicati ons:Stenosis of superficial femoral artery Take 1 tablet (81 mg total) by mouth daily. 30 tablet 10/08/19 25 2024 Discontinued nystatin (MYCOSTATIN) [id number] UNIT/ML suspensionIndi cations:Diabet es mellitus with peripheral circulatory disorder (HCC),Oral thrush Take 5 mL (500,000 Units total) by mouth 4 (four) times a day. 60 mL 11/12/19 25 2024 Discontinued(M ed List Clean-up/Old Med - No E-Cancel/No AVS) clopidogrel (PLAVIX) 75 MG tabletIndicati ons:Atheroscle rosis of manzanita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 (HCC) Take 1 tablet (75 mg total) by mouth daily. 90 tablet 3 12/09/192024 Discontinued minocycline (MINOCIN) 100 MG capsuleIndicat ions:Ulcerated , foot, right, with fat layer exposed (HCC) Take 1 capsule (100 mg total) by mouth 2 (two) times a day. 14 capsule 01/10/20 25 2024 ciprofloxacin (CIPRO) 500 MG tablet 01/11/20 25 2024 Discontinued(M ed List Clean-up/Old Med - No E-Cancel/No AVS) predniSONE (DELTASONE) 20 MG tablet 01/11/20 25 2024 Discontinued(M ed List Clean-up/Old Med - No E-Cancel/No AVS) gabapentin (NEURONTIN) 100 MG capsuleIndicat ions:Neuropath ic pain Take 1 capsule (100 mg total) by mouth twice daily (every 12 hours). 10 capsule 01/24/202024 Discontinued(S top Taking at Discharge) Active Problems Problem Noted Date Diagnosed Date Non-healing wound of right lower extremity 01/26 Atherosclerosis of manzanita ar teries of the extremities with ulceration 12/08/2024 Acute lower limb ischemia 10/01/2024 Assessment & Plan (10/06/2024 6:35 AM EDT): S/p right lower extremity angiogram with EXPLOSIVE ORDNANCE TECHNICIAN atherectomy and plasty on 10/03/2024 Patient had noninvasive invasive vascular studies performed for new baseline after surgery Patient been followed by vascular surgeon as per vascular surgery recommendation Patient should continue on aspirin 81 mg and high intensity statin Patient can follow-up with her in the [place] office in 3 to 4 weeks Discharge information placed in the discharge section of the patient's chart as per vascular surgeon no other acute vascular interventions warranted at this time Patient is on IV antibiotics Follow-up ID recommendation Assessment & Plan (10/04/2024 11:31 AM EDT): Status post right lower extremity angiogram with EXPLOSIVE ORDNANCE TECHNICIAN atherectomy and plasty on 10/03/2024 Patient been [...] Patient underwent right lower extremity angiogram with EXPLOSIVE ORDNANCE TECHNICIAN atherectomy and plasty on 10/03/2024. - Vascular surgery followed throughout admission. Follow up in 3 weeks outpatient - Podiatry signed off. Follow up in 1 week outpatient. - ID followed throughout admission. Okay to stop ABX. - Continue ASA and statin Assessment & Plan (10/06/2024 6:35 AM EDT): S/p right lower extremity angiogram with EXPLOSIVE ORDNANCE TECHNICIAN atherectomy and plasty on 10/03/2024 Patient had noninvasive invasive vascular studies performed for new baseline after surgery Patient been followed by vascular surgeon as per vascular surgery recommendation Patient should continue on aspirin 81 mg and high intensity statin Patient can follow-up with her in the [place] office in 3 to 4 weeks Discharge information placed in the discharge section of the patient's chart as per vascular surgeon no other acute vascular interventions warranted at this time Patient is on IV antibiotics Follow-up ID recommendation Assessment & Plan (10/04/2024 11:31 AM EDT): Status post right lower extremity angiogram with EXPLOSIVE ORDNANCE TECHNICIAN atherectomy and plasty on 10/03/2024 Patient been [...] surgery, podiatry following. S/p RLE angiogram with EXPLOSIVE ORDNANCE TECHNICIAN atherectomy and plasty on 10/03. Was on [...] Encounters Date Type Department Care Team Description 02/10/2025 8:15 AM EST Office Visit [facility] [address] [phone] Floyd Rhodes, AFUA Diabetes mellitus with peripheral circulatory disorder (HCC) (Primary Dx); Ulcerated, foot, right, with fat layer exposed (HCC); Ulcer of great toe, right, limited to breakdown of skin (HCC); Gangrene of toe of right foot (HCC); Blister of right foot, initial encounter; Ingrowing nail, right great toe 02/03/2025 9:45 AM EST Ancillary Procedure [facility] [address] [phone] Desiree Lacey MD 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) 02/03/2025 9:30 AM EST Ancillary Procedure [facility] [address] [phone] Desiree Lacey MD 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) 02/03/2025 9:30 AM EST Office Visit [facility] [address] [phone] Desiree Lacey MD 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) (Primary Dx); Mixed hyperlipidemia 02/03/2025 8:15 AM EST Office Visit [facility] [address] [phone] Floyd Rhodes, HERMESM Diabetes mellitus with peripheral circulatory disorder (HCC) (Primary Dx); Ulcerated, foot, right, with fat layer exposed (HCC); Ulcer of great toe, right, limited to breakdown of skin (HCC) 01/28/2025 7:30 AM EST - 01/28/2025 10:30 AM EST Surgery [facility] [address] [place] [phone] Desiree Lacey MD ANGIOGRAM LEG 01/28/2025 7:30 AM EST Anesthesia Event [facility] [address] [place] [phone] Jameel Schmidt MD Gordon, Donald E, PA-C 01/26/2025 8:28 AM EST - 01/28/2025 4:16 PM EST Hospital Encounter [address] [phone] Mariela Salvador MD Glotzer, Owen S, MD Jain, Akhilesh K, MD Peripheral vascular disease of lower extremity (Primary Dx); 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); Stenosis of superficial femoral artery Discharge Disposition: Home with Health Care Services 01/20/2025 10:30 AM EST Office Visit [facility] [address] [phone] Angie Valenzuela, CLASSIFIED ADVERTISING SUPERVISOR 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) (Primary Dx) 01/20/2025 9:15 AM EST Ancillary Procedure [facility] [address] [phone] Kelvin Liu MD 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) 01/20/2025 9:00 AM EST Ancillary Procedure [facility] [address] [phone] Kelvin Liu MD 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) 01/20/2025 8:15 AM EST Office Visit [facility] [address] [phone] Carmelo, Floyd, DPM Diabetes mellitus with peripheral circulatory disorder (HCC) (Primary Dx); Ulcerated, foot, right, with fat layer exposed (HCC); Ulcer of great toe, right, limited to breakdown of skin (HCC) 01/13/2025 8:15 AM EST Office Visit [facility] [address] [phone] Carmelo, Floyd, DPM Diabetes mellitus with peripheral circulatory disorder (HCC) (Primary Dx); Ulcerated, foot, right, with fat layer exposed (HCC); Right foot pain 01/06/2025 8:15 AM EST Office Visit [facility] [address] [phone] Carmelo, Floyd, DPM Diabetes mellitus with peripheral circulatory disorder (HCC) (Primary Dx); Ulcerated, foot, right, with fat layer exposed (HCC) 12/30/2024 9:00 AM EST Office Visit [facility] [address] [phone] Carmelo, Floyd, DPM Diabetes mellitus with peripheral circulatory disorder (HCC) (Primary Dx); Ulcerated, foot, right, with fat layer exposed (HCC); Callus of foot 12/23/2024 9:00 AM EDT Office Visit [facility] [address] [phone] Carmelo, Floyd, DPM Diabetes mellitus with peripheral circulatory disorder (HCC) (Primary Dx); Ulcerated, foot, right, with fat layer exposed (HCC); Ingrowing nail, right great toe 12/16/2024 8:00 AM EDT Office Visit [facility] [address] [phone] Carmelo, Floyd, DPM Diabetes mellitus with peripheral circulatory disorder (HCC) (Primary Dx); Ulcerated, foot, right, with fat layer exposed (HCC) 12/08/2024 3:00 PM EDT Office Visit [facility] [address] [phone] Desiree Lacey MD 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) (Primary Dx) 11/25/2024 8:45 AM EDT Office Visit [facility] [address] [phone] Carmelo, Floyd, DPM Diabetes mellitus with peripheral circulatory disorder (HCC) (Primary Dx); Ulcer of great toe, right, with fat layer exposed (HCC); Ulcerated, foot, right, with fat layer exposed (HCC) 11/18/2024 9:45 AM EDT Office Visit [facility] [address] [phone] Carmelo, Floyd, DPM Diabetes mellitus with peripheral circulatory disorder (HCC) (Primary Dx); Ulcer of great toe, right, with fat layer exposed (HCC); Ulcerated, foot, right, with fat layer exposed (HCC) from Last 3 Months Social History Tobacco Use Types Packs/Day Years Used Date Smoking Tobacco: Former Cigarettes 0 Q uit: 2013 Smokeless Tobacco: Never Tobacco [...] time in the past 12 m [facility], were you homeless or living in a halfway (including now)? No 01/27/[address] [facility] Utilities Answer Date Recorded In [...] Sign Reading Time Taken Comments Blood Pressure 95/0 02/03/2025 10:27 AM EST L 114/0 both over doppler Pulse 77 02/10/2025 8:03 AM EST Temperature 36.3 C (97.3 F) 01/28/2025 1:28 PM EST Respiratory Rate 18 01/28/2025 1:28 PM EST Oxygen Saturation 99% 02/10/2025 8:0 3 AM EST Inhaled Oxygen Concentration - - Weight 56.7 kg (125 lb) 02/10/2025 8:03 AM EST Height 157.5 cm (5' 2 ) 02/10/2025 8:03 AM EST Body Mass Index 22.86 02/10/2025 8:03 AM EST Plan of Treatment Upcoming Encounters Date Type Department Care Team (Late st Contact Info) Description 02/17/2025 8:15 AM EST Office Visit [facility] [address] [place] [phone] Floyd Rhodes, DPM [address] [facility] [address] [place] [address] 05/18/2025 8:00 AM EDT Ancillary Procedure [facility] [address] [phone] Pamela Diego MD [address] [address] 05/18/2025 8:30 AM EDT Ancillary Procedure [facility] [address] [place] [phone] Desiree Lacey MD [address] [place] [address] 05/18/2025 9:00 AM EDT Ancillary Procedure [facility] [address] [place] [phone] Desiree Lacey MD [address] [place] [address] 05/18/2025 9:00 AM EDT Office Visit [facility] [address] [place] [address] Desiree Lacey MD [address] [place], [place] [phone] Health Maintenance Due Date Last Done Comments Advance Care Planning 1960 Hepatitis C Virus Screening 1960 Ophthalmology Exam 01/15/1970 HIV Screening 01/15/1973 Chronic Controlled Substance Toxicology Screening 01/15/1978 Controlled Substance Agreement Initial and Annual Review 01/15/1978 Microalbumin/Creatinine Ratio Urine 01/15/1978 DTaP/Tdap/Td Vaccines (1 - Tdap) 01/15/1979 Pneumococcal Vaccines 50+ (1 of 2 - PCV) 01/15/1979 Pap Smear (Ages 21-65) 01/15/1981 Mammogram 2000 Colonoscopy 01/15/2005 RSV Vaccine 50 years and older and Patients (1 - Risk 50-74 years 1-dose series) 01/15/2010 Zoster (Shingles) Vaccine (1 of 2) 01/15/2010 Influenza Vaccine 09/26/2024 12/21/2021, , 02/13/2019, Additional history exists COVID-19 Vaccine ( season) 2024 07/14/2021, 02/04/2021, 05/26/2020 Chronic Controlled Substance User PDMP Review 12/29/2024 09/30/2024 DXA Bone Density (Females,Ages 65 and older) 01/15/2025 Hemoglobin A1C 04/03/2025 10/01/2024 Lipid Panel 10/01/2025 10/01/2024 Foot Exam 01/26/2026 01/26/2025, 09/26, 10/06/2024, Additional history exists Creatinine with GFR 01/28/2026 01/28/2025, 01/27/2025, 01/26/2025, Additional history exists Hepatitis B Vaccines Aged Out No long er eligible based on patient's age to complete this topic Procedures Procedure Name Priority Date/Time Associated Diagnosis Comments VAS ARTERIAL DUPLEX LEG-UNILATERAL/LIMITE D Routine 02/03/2025 10:07 AM EST 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) VAS ARTERIAL LEG SINGLE LEVEL PRESSURES-RIGHT Routine 02/03/2025 10:06 AM EST 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 POCT GLUCOSE, FINGERSTICK (CHARGE) Routine 01/28/2025 6:18 AM EST HEPARIN ASSAY (ANTI-XA) Routine 01/28/2025 4:26 AM EST MAGNESIUM Routine 01/28/2025 4:26 AM EST BASIC METABOLIC PANEL Routine 01/28/2025 4:26 AM EST COMPLETE BLOOD COUNT, WITHOUT DIFFERENTIAL Routine 01/28/2025 4:26 AM EST HEPARIN ASSAY (ANTI-XA) Routine 01/27/2025 10:26 PM EST POCT GLUCOSE, FINGERSTICK (CHARGE) Routine 01/27/2025 8:13 PM EST POCT GLUCOSE, FINGERSTICK (CHARGE) Routine 01/27/2025 5:17 PM EST HEPARIN ASSAY (ANTI-XA) Routine 01/27/2025 4:32 PM EST POCT GLUCOSE, FINGERSTICK (CHARGE) Routine 01/27/2025 12:15 PM EST HEPARIN ASSAY (ANTI-XA) Routine 01/27/2025 9:53 AM EST POCT GLUCOSE, FINGERSTICK (CHARGE) Routine 01/27/2025 9:01 AM EST HEPARIN ASSAY (ANTI-XA) Routine 01/27/2025 7:10 AM EST MAGNESIUM STAT 01/27/2025 7:10 AM EST BASIC METABOLIC PANEL STAT 01/27/2025 7:10 AM EST COMPLETE BLOOD COUNT, WITHOUT DIFFERENTIAL STAT 01/27/2025 7:10 AM EST HEPARIN ASSAY (ANTI-XA) STAT 01/26/2025 11:38 PM EST POCT GLUCOSE, FINGERSTICK (CHARGE) Routine 01/26/2025 8:17 PM EST POCT GLUCOSE, FINGERSTICK (CHARGE) Routine 01/26/2025 6:42 PM EST HEPARIN ASSAY (ANTI-XA) STAT 01/26/2025 3:32 PM EST CTA ABDOMEN/BILATERAL RUNOFF W W/O CONTRAST STAT 01/26/2025 12:27 PM EST POCT GLUCOSE, FINGERSTICK (CHARGE) Routine 01/26/2025 11:25 AM EST ECG 12-LEAD Routine 01/26/2025 9:40 AM EST ECG 12-LEAD STAT 01/26/2025 8:44 AM EST PARTIAL THROMBOPLASTIN TIME (PTT) STAT 01/26/2025 8:40 AM EST PROTIME-INR STAT 01/26/2025 8:40 AM EST LACTIC ACID, PLASMA STAT 01/26/2025 8 :40 AM EST COMPREHENSIVE METABOLIC PANEL STAT 01/26/2025 8:40 AM EST COMPLETE BLOOD COUNT, WITH DIFFERENTIAL STAT 01/26/2025 8:40 AM EST TYPE AND SCREEN STAT 01/26/2025 8:35 AM EST POCT GLUCOSE, FINGERSTICK (CHARGE) Routine 01/26/2025 8:34 AM EST BASIC METABOLIC PANEL Routine 01/21/2025 10:01 AM EST 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) Preoperative examination COMPLETE BLOOD COUNT, WITH DIFFERENTIAL Routine 01/21/2025 10:01 AM EST 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) Preoperative examination CULTURE, AEROBIC AND ANAEROBIC W/GRAM STAIN Routine 01/20/2025 10:35 AM EST VAS ARTERIAL DUPLEX LEG GRAFT-RIGHT Routine 01/20/2025 9:42 AM EST 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) VAS ARTERIAL LEG SINGLE LEVEL PRESSURES-RIGHT Routine 01/20/2025 9:42 AM EST 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) CULTURE, AEROBIC AND ANAEROBIC W/GRAM STAIN Routine 01/09/2025 11:18 AM EST CULTURE, AEROBIC AND ANAEROBIC W/GRAM STAIN Routine 01/09/2025 11:15 AM EST CULTURE, AEROBIC AND ANAEROBIC W/GRAM STAIN Routine 01/06/2025 8:07 AM EST Diabetes mellitus with peripheral circulatory disorder (HCC) Ulcerated, foot, right, with fat layer exposed (HCC) HEMOGLOBIN A1C WITH ESTIMATED AVERAGE GLUCOSE Routine 10/01/2024 12:35 AM EDT LIPID PANEL STAT 10/01/2024 12:35 AM EDT from Last 3 Months or Most Recently Relevant to Health Maintenance Results * Vas Arterial Duplex Leg -Bilateral Limited (02/03/2025 10:07 AM EST) Anatomical Region Laterality Modality Ultrasound 02/03/2025 9:45 AM EST Narrative 02/03/2025 2:24 PM EST Table formatting from the original result was not included. Department: [facility] Vascular Lab ([place]) Patient: [id number] (ISELA BUCKLEY) Patient Location: [facility] CPT Code: 35264 ICD-9: Referring Physician: DESIREE LACEY MD, RPVI Impression Duplex scan of the right common femoral artery demonstrates a normal Doppler waveform, not consistent with inflow disease. The proximal superficial femoral, proximal profunda and popliteal arteries are patent with sharp upstroke however with diastolic flow. This could be due to hyperemic response. The distal posterior tibial artery is patent with abnormal Doppler waveforms. Please see the arterial leg single level pressure study of today. Indications Right Follow-up examination, After treatment [Z09]. Clinical Examination S/p right posterior tibial artery angiogram with angioplasty. Presents with worsening RLE wound. Findings: Right PSV EDV VINER OPERATOR 129 PFA Prox 75 SFA Prox 88 Popliteal Artery Prox 70 EXPLOSIVE ORDNANCE TECHNICIAN Dist 80 28 Electronically Signed by: Kelvin Liu MD, RPVI on 2025-02-03 02:24:14 PM End of Report Procedure Note Kelvin Liu MD - 02/03/2025 Department: [facility] Vascular Lab ([place]) Patient: [id number] (ISELA BUCKLEY) Patient Location: [facility] CPT Code: 29896 ICD-9: Referring Physician: DESIREE LACEY MD, KATIE Impression Duplex scan of the right common femoral artery demonstrates a normalDoppler waveform, not consistent with inflow disease. The proximalsuperficial femoral, proximal profunda and popliteal arteries are patentwith sharp upstroke however with diastolic flow. This could be due tohyperemic response. The distal posterior tibial artery is patent withabnormal Doppler waveforms. Please see the arterial leg single level pressure study of today. Indications Right Follow-up examination, After treatment [Z09]. Clinical Examination S/p right posterior tibial artery angiogram with angioplasty. Presentswith worsening RLE wound. Findings: Right PSV EDV VINER OPERATOR 129 PFA Prox 75 SFA Prox 88 Popliteal Artery Prox 70 EXPLOSIVE ORDNANCE TECHNICIAN Dist 80 28 Electronically Signed by: Kelvin Liu MD, KATIE on [id number]:24:14 PM End of Report us Desiree Lacey MD VASCULAR LAB ORDERABLES Final Result * VAS ARTERIAL LEG SINGLE LEVEL PRESSURES-RIGHT (02/03/2025 10:06 AM EST) Only the most recent of2 resultswithin the time period is included. Anatomical Region Laterality Modality Ultrasound 02/03/2025 9:30 AM EST Narrative 02/03/2025 2:25 PM EST Table formatting from the original result was not included. Department: [facility] Vascular Lab ([place]) Patient: [id number] (ISELA BUCKELY) Patient Location: [facility] CPT Code: 36842 ICD-9: Referring Physician: DESIREE LACEY MD, KATIE Impression Right ankle pulse volume recording and ankle brachial index JESI 0.96 are within normal limits. PPG tracings of the great toe are essentially flat, consistent with small vessel arterial occlusive disease. Findings are not consistent with significant arterial occlusive disease of this extremity. Compared to the study of 01/20/25, there has been significant improvement by PVR and JESI. The JESI and PVRs no longer abnormal. Please see the arterial leg duplex study of today. Indications Right Follow-up examination, After treatment [Z09]. Clinical Examination S/p right posterior tibial artery angiogram with angioplasty. Presents with worsening RLE wound. Brachial Pressure:Right 95/Left 114/ Findings: Segment Right Left Pressure JESI Pressure Brachial Artery 95 114 Dorsalis Pedis Artery 110 0.96 Posterior Tibial Artery 102 0.89 Electronically Signed by: Kelvin Liu MD, RPVI on 2025-02-03 02:25:22 PM End of Report Procedure Note Kelvin Liu MD - 02/03/2025 Department: [facility] Vascular Lab ([place]) Patient: [id number] (ISELA BUCKLEY) Patient Location: [facility] CPT Code: 50750 ICD-9: Referring Physician: DESIREE LACEY MD, RPVI Impression Right ankle pulse volume recording and ankle brachial index JESI 0.96 arewithin normal limits. PPG tracings of the great toe are essentially flat,consistent with small vessel arterial occlusive disease. Findings are notconsistent with significant arterial occlusive disease of this extremity. Compared to the study of 01/20/25, there has been significant improvementby PVR and JESI. The JESI and PVRs no longer abnormal. Please see the arterial leg duplex study of today. Indications Right Follow-up examination, After treatment [Z09]. Clinical Examination S/p right posterior tibial artery angiogram with angioplasty. Presentswith worsening RLE wound. Brachial Pressure:Right 95/Left 114/ Findings: Segment Right Left Pressure JESI Pressure Brachial Artery 95 114 Dorsalis Pedis Artery 110 0.96 Posterior Tibial Artery 102 0.89 Electronically Signed by: Kelvin Liu MD, RPVI on [id number]:25:22 PM End of Report us Desiree Lacey MD VASCULAR LAB ORDERABLES Final Result * (ABNORMAL) POCT Glucose, Fingerstick (01/28/2025 9:06 AM EST) Only the most recent of10 resultswithin the time period is included. POC Glucose 100(H) 65 - 99 mg/dL 01/28/2025 9:10 AM EST Blood specimen / Unknown 01/28/2025 9:06 AM EST 01/28/2025 9:10 AM EST Mariela Salvador MD POINT OF CARE TEST ORDERABLES Final Result HOSPITAL LAB See Below * AORTOGRAM- ABDOMINAL (01/28/2025 8:56 AM EST) Anatomical Region Laterality Modality Other Narrative 01/28/2025 12:04 PM EST This study has been auto finalized please see the Notes tabs in Chart Review for final documentation. Desiree Lacey MD CV ENDOVASCULAR ORDERABLES Fi nal Result * FLUORO FOR VASCULAR SURGERY ANGIOPLASTY IN OR (01/28/2025 8:52 AM EST) Narrative [facility] - 01/28/2025 8:54 AM EST This study has been auto finalized please see the Notes or Media Clinical tabs in Chart Review for final documentation. Desiree Lacey MD IMG FLUOROSCOPY ORDERABLES Fi nal Result Performing Organization Address City/[facility]/ZIP Co de Phone Number [facility] [phone] * Heparin Assay (Anti Xa) (01/28/2025 4:26 AM EST) Only the most recent of7 resultswithin the time period is included. Anti Xa 0.65 IU/mL 01/28/2025 5:01 AM EST [facility] Comment: (NOTE) Heparin Thromboembolic/Standard/Full Dose Protocol: [...] - 1.00 IU/mL Anticoagulant IV HEPARIN, UNFRACTIONATED 01/27/2025 11:05 PM [facility] Blood Blood specimen / Unknown 01/28/2025 4:26 AM EST 01/28/2025 4:36 AM EST us Desiree Lacey MD LAB BLOOD [place] [address], [place] [address] * (ABNORMAL) Complete Blood Count WITHOUT Differential - Early AM (01/28/2025 4:26 AM EST) Only the most recent of2 resultswithin the time period is included. White Blood Cell Count 11.2(H) 4.0 - 11.0 Thou/uL 01/28/2025 4:54 AM [facility] Platelet Count 322 150 - 450 Thou/uL 01/28/2025 4:54 AM [facility] Hemoglobin 11.7 11.7 - 15.7 g/dL 01/28/2025 4:54 AM [facility] Hematocrit 37.2 35.0 - 47.0 % 01/28/2025 4:54 AM [facility] Red Blood Cell Count 4.18 4.00 - 5.40 Mil/uL 01/28/2025 4:54 AM [facility] MCV 89 80 - 100 fL 01/28/2025 4:54 AM [facility] MCH 28.0 27.0 - 31.0 pg 01/28/2025 4:54 AM [facility] MCHC 31.5 30.0 - 36.0 g/dL 01/28/2025 4:54 AM [facility] RDW 16.8(H) 11.5 - 14.5 % 01/28/2025 4:54 AM [facility] MPV 10.3 7.5 - 12.5 fL 01/28/2025 4:54 AM [facility] Blood Blood specimen / Unknown 01/28/2025 4:26 AM EST 01/28/2025 4:36 AM EST Faith Collins PA-C LAB BLOOD ORDERABLES Final Res ult Performing Organization Address City/[facility] [place] [address], [place] [address] * Magnesium (01/28/2025 4:26 AM EST) Only the most recent of2 resultswithin the time period is included. Magnesium 2.0 1.6 - 2.7 mg/dL 01/28/2025 5:25 AM [facility] Blood Blood specimen / Unknown 01/28/2025 4:26 AM EST 01/28/2025 4:36 AM EST Faith Collins PA-C LAB BLOOD ORDERABLES Final Res ult Performing Organization Address [facility] [[email or web address]] [place] [address], [place] [address] * (ABNORMAL) Basic Metabolic Panel (01/28/2025 4:26 AM EST) Only the most recent of3 resultswithin the time period is included. Glucose 97 65 - 99 mg/dL 01/28/2025 5:25 AM [facility] Comment:Fasting: <100 mg/dL, Non-Fasting: <200 mg/dL (ADA 2004) Blood Urea Nitrogen (BUN) 11 8 - 21 mg/dL 01/28/2025 5:25 AM [facility] Creatinine 1.11(H) 0.40 - 1.10 mg/dL 01/28/2025 5:25 AM [facility] eGFR 55(L) >59 01/28/2025 5:25 AM EST [facility] Comment:CKD-EPI (2020) in mL /min/1.73 sq meters. Sodium 136 136 - 145 mmol/L 01/28/2025 5:25 AM [facility] Potassium 4.0 3.4 - 5.3 mmol/L 01/28/2025 5:25 AM [facility] Chloride 103 98 - 107 mmol/L 01/28/2025 5:25 AM [facility] CO2 23 22 - 33 mmol/L 01/28/2025 5:25 AM [facility] Anion Gap 10 7 - 17 01/28/2025 5:25 AM [facility] Calcium 8.7 8.7 - 10.5 mg/dL 01/28/2025 5:25 AM [facility] BUN/Creatinine Ratio 10 10.0 - 25.0 Ratio 01/28/2025 5:25 AM [facility] Blood Blood specimen / Unknown 01/28/2025 4:26 AM EST 01/28/2025 4:36 AM EST Faith Collins PA-C LAB BLOOD [place]AB[place] [address], [place] [address] * CTA Abdomen/bilateral runoff w w/o contrast (01/26/2025 12:27 PM EST) Anatomical Region Laterality Modality CTA Body Computed Tomogra phy 01/26/2025 11:4 1 AM EST Impressions 01/26/2025 4:36 PM EST VASCULAR: Abdomen/Pelvis: No abdominal aortic aneurysm or dissection. Right Lower Extremity: Patent right posterior tibial artery and plantar arch. Occluded right anterior tibial artery. Likely occluded right peroneal artery. Left Lower Extremity: Patent left anterior tibial artery and plantar arch. Occluded left peroneal and posterior tibial arteries. NONVASCULAR: No acute abdominopelvic findings. Fleischner guidelines were followed. Disclaimer: Assessment of the lower extremity arterial vasculature is limited in the setting of artifact created from calcified atherosclerotic plaque and suboptimal contrast/spacial resolution of CT to distinguish calcified plaque from luminal contrast in small vessels. Given that this could lead to underestimation of stenosis (particularly infrapopliteal vessels), assessment with traditional angiography is recommended in the appropriate clinical setting. Narrative 01/26/2025 4:36 PM EST EXAMINATION: CT ANGIOGRAPHY ABDOMEN, PELVIS AND LOWER EXTREMITY RUNOFF WITH CONTRAST CLINICAL INFORMATION: RLE Rest pain COMPARISON: 10/03/2024 arteriogram TECHNIQUE: Initial noncontrast localizing data reviewer images were obtained. Timing boluses at the level of the celiac and popliteal arteries were calculated. Subsequently, arterial phase multidetector volumetric imaging was performed through the abdomen, pelvis and bilateral lower extremities following the administration of 100 mL Omnipaque 350 intravenous contrast. No contrast reaction reported Sagittal and coronal reformatted images were obtained on the technologist workstation. After extensive post-processing on a dedicated 3-D workstation, 3-D reformatted images were uploaded to PACS and reviewed as well. This CT examination was performed using dose optimization techniques as appropriate, variously including the following: *Automated exposure control *Adjustment of mA and/or kV according to patient size (this includes techniques or standardized protocols for targeted exams where dose is matched to indication/reason for exam; i.e. extremities or head) *Use of iterative reconstruction technique DLP: 1520.28 mGy-cm FINDINGS: VASCULAR: Heart: Normal size. Mild coronary artery calcifications. Abdominal Aorta: Mild/Moderate/Severe calcified atherosclerotic disease. No dissection or aneurysmal dilation. Normal aortic taper. Mesenteric Arteries: The celiac axis, superior mesenteric artery and inferior mesenteric artery are patent. Renal Artery: Single renal arteries bilaterally. Bilateral renal arteries are patent. Calcified plaque at the origin of the right renal artery likely produces at least mild stenosis. Right Lower Extremity: Right Common Iliac Artery: Patent. Moderate calcified atherosclerotic disease resulting in no stenosis. Right External Iliac Artery: Patent. No stenosis. Right Internal Iliac Artery: Patent. Common Femoral Artery: Patent. No stenosis. Superficial Femoral Artery: Patent. Moderate calcified atherosclerotic disease resulting in no stenosis. Profunda Femoris: Patent. Popliteal Artery: Patent. Moderate calcified atherosclerotic disease resulting in no high grade stenosis. Portions of the right popliteal artery are secured due to metal artifact from total knee arthroplasty. Tibioperoneal Trunk: Patent. Anterior Tibial Artery: Patent proximally. Calcified plaque limits characterization distally. Peroneal Artery: Severe calcified atherosclerotic disease limits characterization. Posterior Tibial Artery: Likely patent. Limited characterization due to severe calcified atherosclerotic disease. Dorsalis Pedis: Nonopacified. Plantar Arch: Patent. Left lower extremity: Left Common Iliac Artery: Patent. Mild calcified atherosclerotic disease resulting in no stenosis. Left External Iliac Artery: Patent. No stenosis. Left Internal Iliac Artery: Patent. Common Femoral Artery: Patent. No stenosis. Superficial Femoral Artery: Patent. Moderate calcified atherosclerotic disease resulting in mild stenosis of the left superficial femoral artery within the lower adductor canal. Profunda Femoris: Patent. Popliteal Artery: Patent. Moderate calcified atherosclerotic disease resulting in no high grade stenosis. Tibioperoneal Trunk: Patent. Anterior Tibial Artery: Patent. Peroneal Artery: Occluded in the calf to the ankle. Posterior Tibial Artery: Occluded above the ankle. Dorsalis Pedis: Patent. Plantar Arch: Patent. NONVASCULAR FINDINGS: ABDOMEN/PELVIS: Lung Bases: The visualized lung bases are clear. Liver: Homogeneous in attenuation. Normal in size. Gallbladder: Noninflamed. Biliary System: No intrahepatic or extrahepatic biliary dilation. Pancreas: Homogeneous in attenuation. Spleen: Normal in size. Genitourinary: Bilateral kidneys demonstrate symmetric enhancement. No perinephric fluid collection. No renal calculi. No hydroureteronephrosis. A subcentimeter uniform hypodensity in the lower pole of the right kidney is likely a benign Bosniak 2 cyst does not require follow-up imaging. Adrenal Glands: Unremarkable. Reproductive: Prior hysterectomy. Gastrointestinal: The visualized alimentary tract is normal in course. No evidence of obstruction. Peritoneum: No pneumoperitoneum. No intra-abdominal fluid collection. Lymph Nodes: No pathologically enlarged abdominal or pelvic lymph nodes. Soft Tissues/Musculoskeletal: Unremarkable right total knee arthroplasty. Bilateral talar fixation screw is present. There are numerous soft tissue calcifications within the plantar soft tissues bilaterally. There multilevel spinal degenerative changes. Procedure Note Bobby Kitchen MD - 01/26/2025 EXAMINATION: CT ANGIOGRAPHY ABDOMEN, PELVIS AND LOWER EXTREMITY RUNOFF WITH CONTRAST CLINICAL INFORMATION: RLE Rest pain COMPARISON: 10/03/2024 arteriogram TECHNIQUE: Initial noncontrast localizing data reviewer images were obtained. Timing boluses at the level of the celiac and popliteal arteries were calculated. Subsequently, arterial phase multidetector volumetric imaging was performed through the abdomen, pelvis and bilateral lower extremities following the administration of 100 mL Omnipaque 350 intravenous contrast. No contrast reaction reported Sagittal and coronal reformatted images were obtained on the technologist workstation. After extensive post-processing on a dedicated 3-D workstation, 3-D reformatted images were uploaded to PACS and reviewed as well. This CT examination was performed using dose optimization techniques as appropriate, variously including the following: *Automated exposure control *Adjustment of mA and/or kV according to patient size (this includes techniques or standardized protocols for targeted exams where dose is matched to indication/reason for exam; i.e. extremities or head) *Use of iterative reconstruction technique DLP: 1520.28 mGy-cm FINDINGS: VASCULAR: Heart: Normal size. Mild coronary artery calcifications. Abdominal Aorta: Mild/Moderate/Severe calcified atherosclerotic disease. No dissection or aneurysmal dilation. Normal aortic taper. Mesenteric Arteries: The celiac axis, superior mesenteric artery and inferior mesenteric artery are patent. Renal Artery: Single renal arteries bilaterally. Bilateral renal arteries are patent. Calcified plaque at the origin of the right renal artery likely produces at least mild stenosis. Right Lower Extremity: Right Common Iliac Artery: Patent. Moderate calcified atherosclerotic disease resulting in no stenosis. Right External Iliac Artery: Patent. No stenosis. Right Internal Iliac Artery: Patent. Common Femoral Artery: Patent. No stenosis. Superficial Femoral Artery: Patent. Moderate calcified atherosclerotic disease resulting in no stenosis. Profunda Femoris: Patent. Popliteal Artery: Patent. Moderate calcified atherosclerotic disease resulting in no high grade stenosis. Portions of the right popliteal artery are secured due to metal artifact from total knee arthroplasty. Tibioperoneal Trunk: Patent. Anterior Tibial Artery: Patent proximally. Calcified plaque limits characterization distally. Peroneal Artery: Severe calcified atherosclerotic disease limits characterization. Posterior Tibial Artery: Likely patent. Limited characterization due to severe calcified atherosclerotic disease. Dorsalis Pedis: Nonopacified. Plantar Arch: Patent. Left lower extremity: Left Common Iliac Artery: Patent. Mild calcified atherosclerotic disease resulting in no stenosis. Left External Iliac Artery: Patent. No stenosis. Left Internal Iliac Artery: Patent. Common Femoral Artery: Patent. No stenosis. Superficial Femoral Artery: Patent. Moderate calcified atherosclerotic disease resulting in mild stenosis of the left superficial femoral artery within the lower adductor canal. Profunda Femoris: Patent. Popliteal Artery: Patent. Moderate calcified atherosclerotic disease resulting in no high grade stenosis. Tibioperoneal Trunk: Patent. Anterior Tibial Artery: Patent. Peroneal Artery: Occluded in the calf to the ankle. Posterior Tibial Artery: Occluded above the ankle. Dorsalis Pedis: Patent. Plantar Arch: Patent. NONVASCULAR FINDINGS: ABDOMEN/PELVIS: Lung Bases: The visualized lung bases are clear. Liver: Homogeneous in attenuation. Normal in size. Gallbladder: Noninflamed. Biliary System: No intrahepatic or extrahepatic biliary dilation. Pancreas: Homogeneous in attenuation. Spleen: Normal in size. Genitourinary: Bilateral kidneys demonstrate symmetric enhancement. No perinephric fluid collection. No renal calculi. No hydroureteronephrosis. A subcentimeter uniform hypodensity in the lower pole of the right kidney is likely a benign Bosniak 2 cyst does not require follow-up imaging. Adrenal Glands: Unremarkable. Reproductive: Prior hysterectomy. Gastrointestinal: The visualized alimentary tract is normal in course. No evidence of obstruction. Peritoneum: No pneumoperitoneum. No intra-abdominal fluid collection. Lymph Nodes: No pathologically enlarged abdominal or pelvic lymph nodes. Soft Tissues/Musculoskeletal: Unremarkable right total knee arthroplasty. Bilateral talar fixation screw is present. There are numerous soft tissue calcifications within the plantar soft tissues bilaterally. There multilevel spinal degenerative changes. IMPRESSION: VASCULAR: Abdomen/Pelvis: No abdominal aortic aneurysm or dissection. Right Lower Extremity: Patent right posterior tibial artery and plantar arch. Occluded right anterior tibial artery. Likely occluded right peroneal artery. Left Lower Extremity: Patent left anterior tibial artery and plantar arch. Occluded left peroneal and posterior tibial arteries. NONVASCULAR: No acute abdominopelvic findings. Fleischner guidelines were followed. Disclaimer: Assessment of the lower extremity arterial vasculature is limited in the setting of artifact created from calcified atherosclerotic plaque and suboptimal contrast/spacial resolution of CT to distinguish calcified plaque from luminal contrast in small vessels. Given that this could lead to underestimation of stenosis (particularly infrapopliteal vessels), assessment with traditional angiography is recommended in the appropriate clinical setting. us Faith Collins PA-C IMG CT ORDERABLES Final Result * EKG 12-Lead (01/26/2025 9:40 AM EST) Only the most recent of2 resultswithin the time period is included. Ventricular rate 98 BPM EKG [facility] Atrial rate 98 BPM EKG [facility] P-R interval 130 ms EKG [facility] QRS duration 72 ms EKG [facility] Q-T interval 342 ms EKG [facility] QTC calculation (Bazett) 437 ms EKG [facility] P axis 24 degrees EKG [facility] R axis 8 degrees EKG [facility] T axis 15 [facility] 01/26/2025 9:40 AM EST Narrative EKG [facility] - 01/26/2025 10:33 AM EST Normal sinus rhythm Normal ECG When compared with ECG of 26-Jan-2025 08:44, No significant change was found Confirmed by MD Hermosillo Kevin ([id number]) on 01/26/2025 10:33:14 AM Procedure Note Terence Hermosillo MD - 01/26/2025 Normal sinus rhythm Normal ECG When compared with ECG of 26-Jan-2025 08:44, No significant change was found Confirmed by MD Hermosillo Kevin ([id number]) on 01/26/2025 10:33:14 AM Faith Collins PA-C ECG ORDERABLES Final Result [facility] * (ABNORMAL) Complete Blood Count, with Differential (01/26/2025 8:40 AM EST) Only the most recent of2 resultswithin the time period is included. White Blood Cell Count 15.7(H) 4.0 - 11.0 Thou/uL 01/26/2025 9:02 AM [facility] Platelet Count 408 150 - 450 Thou/uL 01/26/2025 9:02 AM [facility] Hemoglobin 13.7 11.7 - 15.7 g/dL 01/26/2025 9:02 AM [facility] Hematocrit 42.8 35.0 - 47.0 % 01/26/2025 9:02 AM [facility] Red Blood Cell Count 4.78 4.00 - 5.40 Mil/uL 01/26/2025 9:02 AM [facility] MCV 90 80 - 100 fL 01/26/2025 9:02 AM [facility] MCH 28.7 27.0 - 31.0 pg 01/26/2025 9:02 AM [facility] MCHC 32.0 30.0 - 36.0 g/dL 01/26/2025 9:02 AM [facility] RDW 17.2(H) 11.5 - 14.5 % 01/26/2025 9:02 AM [facility] MPV 10.7 7.5 - 12.5 fL 01/26/2025 9:02 AM [facility] Neutrophils Auto 80.2 % 01/27/20 9:02 AM [facility] Immature Granulocytes 1.1 % 01/26/2025 9:02 AM [facility] Lymphocytes Auto 8.4 % 01/27/20 9:02 AM [facility] Monocytes Auto 8.8 % 01/26/2025 9:02 AM [facility] Eosinophils Auto 0.8 % 01/27/20 9:02 AM [facility] Basophils Auto 0.7 % 01/26/2025 9:02 AM [facility] Abs Neutrophils Auto 12.56(H) 2.00 - 7.50 Thou/uL 01/26/2025 9:02 AM [facility] Abs Immature Granulocytes 0.18(H) 0.00 - 0.10 Thou/uL 01/26/2025 9:02 AM [facility] Abs Lymphocytes Auto 1.32(L) 1.50 - 4.50 Thou/uL 01/26/2025 9:02 AM [facility] Abs Monocytes Auto 1.38 0.20 - 1.50 Thou/uL 01/26/2025 9:02 AM [facility] Abs Eosinophils Auto 0.12 0.00 - 0.70 Thou/uL 01/26/2025 9:02 AM [facility] Abs Basophils Auto 0.11 0.00 - 0.20 Thou/uL 01/26/2025 9:02 AM [facility] Blood Blood specimen / Unknown 01/26/2025 8:40 AM EST 01/26/2025 8:54 AM EST Mariela Salvador MD LAB BLOOD ORDERABL ES Final Result Performing Organization Address City/State/[facility] [place] [address], [place] [address] * Partial Thromboplastin Time (PTT) (01/26/2025 8:40 AM EST) Anticoagulant IV HEPARIN, UNFRACTIONATED 01/26/2025 8:39 AM [facility] Partial Thromboplastin Time (PTT) 30 25 - 36 seconds 01/26/2025 9:10 AM [facility] Comment:Anti-Xa is the labor atory standard for heparin monitoring. Use of aPTT for unfractionated heparin in patients receiving DOACs may be performed at the clinician's discretion. Blood Blood specimen / Unknown 01/26/2025 8:40 AM EST 01/26/2025 8:54 AM EST Mariela Salvador MD LAB BLOOD ORDERABL ES Final Result Performing Organization Address [facility] [place] [address], [place] [address] * INR (01/26/2025 8:40 AM EST) [facility] Signature Anticoagulant CLOPIDOGREL (PLAVIX) 01/26/2025 8:37 AM [facility] Prothrombin Time (PT) 12.1 10.0 - 13.5 seconds 01/26/2025 9:10 AM [facility] INR 1.0 01/26/2025 9:10 AM [facility] Comment:INR Therapeutic Rang es: Standard dose anticoagulant 2.0 to 3.0, High dose anticoagulant 2.5-3.5. Blood Blood specimen / Unknown 01/26/2025 8:40 AM EST 01/26/2025 8:54 AM EST Mariela Salvador MD LAB BLOOD ORDERABL ES Final Result Performing Organization Address [facility] [place] [address], [place] [address] * (ABNORMAL) Lactate Level X 2 (01/26/2025 8:40 AM EST) Lactic Acid 2.4(H) 0.5 - 1.9 mmol/L 01/26/2025 9:17 AM [facility] Blood Blood specimen / Unknown 01/26/2025 8:40 AM EST 01/26/2025 8:53 AM EST us Faith Collins PA-C LAB BLOOD [place]AB[place] [address], [place] [address] * (ABNORMAL) Comprehensive Metabolic Panel (01/26/2025 8:40 AM EST) Glucose 129(H) 65 - 99 mg/dL 01/26/2025 9:17 AM [facility] Comment:Fasting: <100 mg/dL, Non-Fasting: <200 mg/dL (ADA 2004) Blood Urea Nitrogen (BUN) 13 8 - 21 mg/dL 01/26/2025 9:17 AM [facility] Creatinine 1.20(H) 0.40 - 1.10 mg/dL 01/26/2025 9:17 AM [facility] eGFR 50(L) >59 01/26/2025 9:17 AM [facility] Comment:CKD-EPI (2020) in mL /min/1.73 sq meters. Sodium 137 136 - 145 mmol/L 01/26/2025 9:17 AM [facility] Potassium 4.2 3.4 - 5.3 mmol/L 01/26/2025 9:17 AM [facility] Chloride 100 98 - 107 mmol/L 01/26/2025 9:17 AM [facility] CO2 24 22 - 33 mmol/L 01/26/2025 9:17 AM [facility] Calcium 9.9 8.7 - 10.5 mg/dL 01/26/2025 9:17 AM [facility] Alkaline Phosphatase 101 32 - 122 U/L 01/26/2025 9:17 AM [facility] Aspartate Aminotrans (AST) 17 10 - 50 U/L 01/26/2025 9:17 AM [facility] Alanine Aminotrans (ALT) 16 10 - 50 U/L 01/26/2025 9:17 AM [facility] Bilirubin, Total 0.8 0.2 - 1.0 mg/dL 01/26/2025 9:17 AM [facility] Protein, Total 7.8 6.3 - 8.3 g/dL 01/26/2025 9:17 AM [facility] Albumin 3.9 3.4 - 4.8 g/dL 01/26/2025 9:17 AM [facility] BUN/Creatinine Ratio 11 10.0 - 25.0 Ratio 01/26/2025 9:17 AM [facility] Globulin 3.9 1.5 - 3.9 g/dL 01/26/2025 9:17 AM [facility] Albumin/Globulin Ratio 1.0 1.0 - 3.0 Ratio 01/26/2025 9:17 AM [facility] Anion Gap 13 7 - 17 01/26/2025 9:17 AM [facility] Blood Blood specimen / Unknown 01/26/2025 8:40 AM EST 01/26/2025 8:54 AM EST Mariela Salvador MD LAB BLOOD [place]AB[place] [address], [place] [address] * Type and Screen (01/26/2025 8:35 AM EST) ABO/Rh A POSITIVE 01/26/2025 10:15 AM [facility] Antibody Screen NEGATIVE 10:15 AM [facility] Specimen Expiration 01/29/2025 01/26/2025 10:15 AM [facility] Blood Blood specimen / Unknown 01/26/2025 8:35 AM EST 01/26/2025 9:15 AM EST Mariela Salvador MD BLOOD BANK TEST OR DERABLES Final Result [address] [address], [address] [address] * AEROBIC ANAEROBIC CULTURE W/GRAM STAIN (01/20/2025 [...] result was not included. Department: [facility] Vascular Lab ([place]) Patient: [id number] (ISELA BUCKLEY) Patient Location: [facility] CPT Code: 16290 ICD-9: Referring Physician: Kelvin Liu MD, RPVI [...] artery atherectomy and angioplasty. Findings: Right PSV VINER OPERATOR 96 PFA Prox 65 SFA Prox 90 Popliteal Artery Mid 34 Electronically Signed by: Kelvin Liu MD, RPVI on 2025-01-20 10:40:49 AM End of Report Procedure Note Kelvin Liu MD - 01/20/2025 Department: [facility] Vascular Lab ([place]) Patient: [id number] (ISELA BUCKLEY) Patient Location: [facility] CPT Code: 43743 ICD-9: Referring Physician: Kelvin Liu MD, RPVI [...] tibial artery atherectomy andangioplasty. Findings: Right PSV VINER OPERATOR 96 PFA Prox 65 SFA Prox 90 Popliteal Artery Mid 34 Electronically Signed by: Kelvin Liu MD, RPVI on :40:49 AM End of Report Kelvin Liu MD VASCULAR LAB ORDERABLES Tameka l Result * (ABNORMAL) Hemoglobin A1C with Estimated Average Glucose (10/01/2024 12:35 AM EDT) Hemoglobin A1C 7.0(H) <5.7 % 10/01/2024 2:51 AM EDT [facility] Comment: A1c% Interpretation 5.7 - 6.0 Increase risk of diabetes 6.1 - 6.4 Higher risk of diabetes > or = 6.5 Consistent with diabetes Diabetes Care, 33(Supp 1):S1-S61, 2010 Estimated Average Glucose 154 mg/dL 10/01/2024 2:51 AM T [facility] Blood specimen / Unknown 10/01/2024 12:35 AM EDT 10/01/2024 12:52 AM EDT Arnulfo Barrios MD LAB BLOOD ORDERABLES Final Re sult [address] [address], [address] [id number] * LIPID PANEL (10/01/2024 12:35 AM EDT) Cholesterol, Total 173 <200 mg/dL 2024 3:24 AM EDT [facility] Triglycerides 104 <150 mg/dL 10/01/2024 3:24 AM EDT [facility] Cholesterol, HDL 52 >39 mg/dL 10/02/19 3:24 AM EDT [facility] Estimated LDL 100 <130 mg/dL 10/01/2024 3:24 AM EDT [facility] Comment: NCEP Guidelines: < 100 mg/dL Optimal 100 - 129 mg/dL Near Optimal/Above Optimal 130 - 159 mg/dL Borderline High 160 - 189 mg/dL High >/= 190 mg/dL Very High Cholesterol/HDL Ratio 3.3 0.0 - 5.0 Ratio 10/01/2024 3:24 AM EDT [facility] Comment: Relative Risk Ratio - Male Ratio - Female 0.5 3.4 3.3 1.0 5.0 4.4 2.0 9.6 7.1 3.0 23.4 11.0 10/01/2024 12:3 5 AM EDT 10/01/2024 12:52 AM EDT Arnulfo Barrios MD LAB BLOOD ORDERABLES Final Re sult [address] [address], [address] [address] from Last 3 Months or Most Recently Relevant to Health Maintenance Insurance MEDICARE PART A & B [facility] [place] [facility] [place] Direct[place] * Full Code (Latest Code Status on File) Date Activated Date Inactivated Comments 01/26/2025 9:16 AM * Full Code Date Activated Date Inactivated Comments 10/03/2024 9:42 AM 01/26/2025 8:21 AM * Full Code Date Activated Date Inactivated Comments 10/01/2024 2:32 AM 10/03/2024 9:42 AM Question Answer Comments Decision Thoroughly Discussed with: Patient Care Teams Train Operations Manager Relationship Specialty Start Date End Date Michael Vogel MD [address] [place] [address] [address] [place] [address] PCP - General Internal Medicine 10/01/24 Pamela Diego MD [address] [place] [id number] Surgery, Vascular 10/21/24
== END 2025-02-11 12:15 | disposition home or self-care (01) ==
LOC: HO.HSMS 08:29
PROVIDERS: PCP Internal Medicine; Visit Provider Psychiatry & Neurology Neurology
DX: R29.898 Other symptoms and signs involving the musculoskeletal system (principal); M47.22 Other spondylosis with radiculopathy, cervical region; G62.9 Polyneuropathy, unspecified; R25.1 Tremor, unspecified
CPT/HCPCS: 99204; G2211

== ENCOUNTER → 2025-02-11 08:29 | Outpatient (BNVA) | payer MEDICARE, MEDICAID, SELFPAY | PROVIDERS: PCP Internal Medicine; Visit Provider Psychiatry & Neurology Neurology | DX: M47.22 Other spondylosis with radiculopathy, cervical region (principal) | CPT/HCPCS: 99202 ==

== ENCOUNTER 2025-02-12 11:09 | Inpatient (IN) | payer MEDICARE, MEDICAID, SELFPAY ==
--- OUTSIDE RECORDS SUMMARY | 2025-02-10 08:15 | XMS_ITS | Encounter Summary ---
Author Organization [facility] Address [address] [place] [address] Care Team Providers Care Rehabilitation Director Name Role Phone Michael Vogel MD Primary Care Provider [phone] Pamela Diego MD Unavailable [phone] Reason for Visit * Reason Comments Wound Check Wound check R foot Encounter Details Date Type Department Care Team ([facility] st Contact Info) Description 02/10/2025 8:15 AM EST Office Visit [facility] Podiatric Surgery [address] [place] [address] Floyd Rhodes DPM [address] [facility] [address] [place] [address] Diabetes mellitus with peripheral circulatory disorder (HCC) [...] were you homeless or living in a nursing home (including now)? No 01/27/2025 [facility] Utilities Answer Date Recorded In the [...] in this encounter Progress Notes * Floyd Rhodes DPM - 02/10/2025 8:40 AM EST The [...] WNL right Protective sensation intact as per [place] Nav 5.07 monofilament wire Muscle power 5/5 [...] 1. Diabetes mellitus with peripheral circulatory disorder ([facility]) 2. Ulcerated, foot, right, with fat layer exposed ([facility]) 3. Ulcer of great toe, right, limited to breakdown of skin ([facility]) 4. Gangrene of toe of right foot ([facility]) 5. Blister of right foot, initial encounter [...] Description 02/17/2025 8:15 AM EST Office Visit [facility] Podiatric Surgery [address] [place] [phone] Floyd Rhodes, DPM [address] [facility] [address] [place] [address] 05/18/2025 8:00 AM EDT Ancillary Procedure [facility] Vascular & Endovascular Surgery [address] [phone] Pamela Diego MD [address] [phone] 05/18/2025 8:30 AM EDT Ancillary Procedure [facility] Vascular & Endovascular Surgery [address] [phone] Masnoor Olivas MD [address] [place] [address] 05/18/2025 9:00 AM EDT Ancillary Procedure [facility] Vascular & Endovascular Surgery [address] [phone] Mansoor Olivas MD [address] [place] [address] 05/18/2025 9:00 AM EDT Office Visit [facility] Vascular & Endovascular Surgery [address] [phone] Mansoor Olivas MD [address] [place] [address] documented as of this encounter Visit Diagnoses [...] nail documented in this encounter Care Teams Rehabilitation Director Relationship Specialty Start Date End Date Michael Vogel MD [address] [place] [address], [place] [address] PCP - General Internal Medicine 10/01/24 Pamela Diego MD [address] [place] [id number] Surgery, Vascular 10/21/24 documented as of this encounter
[2025-02-12] VITALS (13 sets, daily range): BP systolic 139–162; BP diastolic 74–90; PULSE 109–125; RESP 12–29; TEMP 36.9–37.1; O2SAT 86–100; BMI 26.6
--- NOTE | ~2025-02-12 | IR_ITS ---
PROCEDURE: IR INSERTION OF CENTRAL VENOUS CATHETER CLINICAL INFORMATION: Insertion of temporary dialysis catheter for dialysis. COMPARISON: None available. TECHNIQUE: Following explaining fluoroscopy ultrasound-guided placement of a right temporary dialysis catheter procedure, benefits and risk, a written consent was obtained. Patient was placed supine on IR table and preliminary ultrasound imaging was obtained through the right neck. Images were obtained for documentation. Marke was placed on the right neck and the area was cleaned and draped in usual sterile manner. 1% lidocaine was injected at puncture site. Through a small skin incision a 4 Naur[place] needle was advanced under sterile ultrasound guidance and right jugular vein above the medial right clavicle was punctured. After observing venous return a thin guidewire was advanced in SVC and needle withdrawn. Over the guidewire a 5 [place]auruan sheath was administered and the short guide wire was exchanged for a long the J-wire. The J-wire has extended into the IVC under fluoroscopy guidance. The 5 Nauruan sheath was then exchanged for a, 10 and 12 Nauruan dilators over the guidewire. A 12.5 Nauruan Mahurkar temporary dialysis catheter was inserted over the guidewire and placed into the SVC. The guide was removed and both ports of the dialysis catheter were flushed. The catheter was anchored to the skin with nonabsorbable 3-0 nylon two sutures. Sterile dressing applied post procedure. Patient tolerated procedure extremely well. All elements of maximal sterile barrier technique followed including use of cap, mask, sterile gown, sterile gloves, a sterile full body drape and hand hygiene. Also followed skin preparation with 2% chlorhexidine for cutaneous antisepsis, and sterile ultrasound preparation with sterile gel and probe cover when applicable. No conscious sedation was utilized. FINDINGS: On preliminary ultrasound imaging there is widely patent right jugular vein. A 12.5 Naur[place] 20 cm long Mahurkar temporary dialysis catheter was inserted through a right jugular vein. IR/IR cvc insert non tunnel IMPRESSION: Successful ultrasound and fluoroscopy-guided placement of a temporary right jugular vein dialysis catheter. Fluoroscopy time: 0.4 minutes. Total dose: 4.2 mGy/cm. Electronically signed by: Juan Luis Osuna MD 02/17/2025 04:[address] [facility]
--- NOTE | ~2025-02-12 | CT_ITS ---
EXAMINATION: CT ABDOMEN PELVIS WITHOUT IV CONTRAST HISTORY: Diffuse abdominal pain, new onset renal failure COMPARISON: Previous CTA of the abdomen and pelvis September [address] of the abdomen and pelvis August 2023 TECHNIQUE: CT scan of the abdomen and pelvis was performed without contrast using standard departmental protocol. Coronal and sagittal reformatted images were generated and reviewed. This CT exam was performed with one or more of the following dose reduction techniques: automated exposure control, adjustment of the mA and/or kV according to patient size, use of iterative reconstruction technique. DLP: 606 mGy-cm FINDINGS: LOWER CHEST: The visualized lung bases are clear. There is no pleural effusion. CARDIOVASCULATURE: The heart is normal in size. There is no pericardial effusion. LIVER: Fatty infiltration of the liver. Liver is slightly enlarged right lobe measuring 18 cm in length. No focal lesion appreciated. GALLBLADDER / BILE DUCTS: The gallbladder is unremarkable. There is no intra or extrahepatic biliary ductal dilatation. SPLEEN: The spleen is normal in size and has an unremarkable unenhanced appearance. There is a splenule measuring up to 1.8 cm, unchanged PANCREAS: Decreased attenuation in the uncinate process of the head of the pancreas. This area measures approximately 1.3 x 1.9 cm axial image 27 series 3 and may have peripheral small calcification. The main pancreatic duct does not appear dilated. ADRENAL GLANDS: Unremarkable. KIDNEYS/RETROPERITONEUM: There are small bilateral nonobstructing renal stones. 9 mm low-attenuation lesion in the mid right kidney. This is similar in size to previous exam. This is difficult to accurately characterize but may represent a cyst. No hydronephrosis. No ureteral dilatation or ureteral stone. LYMPH NODES: Small retroperitoneal lymph nodes in the abdomen, pelvis and bilateral inguinal regions. No enlarged lymph nodes. VASCULATURE: Atherosclerotic disease. No aneurysm. MESENTERY/PERITONEUM: No free fluid. No masses. There is no free intraperitoneal gas. STOMACH: The stomach is unremarkable. SMALL BOWEL: The small bowel is normal in caliber. COLON: The colon is unremarkable. APPENDIX: Normal. URINARY BLADDER/PELVIC ORGANS: Candelaria catheter in the bladder. The bladder is empty. The uterus has been removed. No pelvic mass. BONES / SOFT TISSUES: Degenerative changes of the spine. Slight loss of height of the superior endplate of the T11 vertebral body questionable for a Schmorl's node versus mild compression fracture. This is similar to September [address]/CT abdomen pelvis wo IV con IMPRESSION: Small bilateral nonobstructing renal stones. No hydronephrosis, ureteral dilatation or ureteral stone. 9 mm low-attenuation lesion in the mid right kidney. This is difficult to accurately characterize but similar in size to previous exams and may represent a cyst. Candelaria catheter in the bladder. The bladder is empty. Question low attenuation in the uncinate process of the head of the pancreas. Follow-up CT or MRI with IV contrast recommended. Fatty liver. Electronically signed by: Rosanna Kraus MD 02/12/2025 03:[address] [facility]
--- NOTE | ~2025-02-12 | CT_ITS ---
PROCEDURE: CT GUIDED BIOPSY, KIDNEY CLINICAL INFORMATION: CKD COMPARISON: CT abdomen 02/12/2025. TECHNIQUE: Following explaining CT fluoroscopy guided kidney biopsy procedure, benefits and risk, a written consent was obtained. Patient was placed in left lateral decubitus view and preliminary CT imaging was obtained. Patient could not lie prone due to rheumatoid arthritis and stiff shoulder joints. An optimal slice was selected and markers placed along the right posterior lateral abdominal wall and repeat scanning was performed. An optimal marker was selected and marked on the skin. The marked site was cleaned and draped in usual sterile manner. 1% lidocaine was injected at puncture site. Through a small skin incision a 18-gauge guide needle was advanced from the skin into the posterior cortex of right kidney. Coaxially a 3 pass biopsy of the right kidney cortex was performed. Repeat CT imaging obtained reveal no bleeding. Postprocedure sterile dressing was applied. No Gelfoam was inserted. This CT examination was performed using dose optimization techniques as appropriate, variously including the following: *Automated exposure control *Adjustment of mA and/or kV according to patient size (this includes techniques or standardized protocols for targeted exams where dose is matched to indication/reason for exam; i.e. extremities or head) *Use of iterative reconstruction technique DLP: 319 mGy/cm. FINDINGS: On preliminary CT imaging there are multiple small radiopaque calculi in the lower pole kidney. CT fluoroscopy guided coaxial biopsy lower pole right kidney was performed with an 18-gauge needle x3. Post biopsy there was no perinephric hematoma seen. CT/CT biopsy renal RT IMPRESSION: Successful CT fluoroscopy guided lower pole right kidney core biopsy performed x 3. Electronically signed by: Juan Luis Osuna MD 02/24/2025 02:16 PM [facility]
--- NOTE | ~2025-02-12 | CT_ITS ---
PROCEDURE: CT GUIDED BIOPSY, KIDNEY CLINICAL INFORMATION: CT fluoroscopy guided renal biopsy. Recent history of cardiac catheterization procedure. COMPARISON: None available. TECHNIQUE: Following explaining CT fluoroscopy guided renal biopsy procedure, benefits and risk, a written consent was obtained. Patient was placed in a decubitus view and preliminary CT imaging was obtained through the abdomen with attention the kidneys. An optimal slice was selected axial and markers base along the posterior abdomen overlying the lower pole right kidney. A central marker was selected and marked on the skin. The marked site was cleaned and draped in usual sterile manner. 1% lidocaine was injected puncture site. Through a small skin incision a 19-gauge guide needle was advanced from the skin into the posterior cortex lower pole right kidney. Coaxially a 20-gauge biopsy gun was administered and it 3 pass core biopsy lower pole right kidney was performed. Sample collected was on a Damian gauze soaked in saline and a dry container. After removing the needle complete hemostasis achieved at puncture site. Gel foam was injected through the needle to obtain hemostasis. Complete hemostasis achieved at puncture site. Sterile dressing applied post procedure. Repeat CT imaging was performed post procedure. Conscious sedation was utilized during exam and patient monitored by IR nursing and physician. This CT examination was performed using dose optimization techniques as appropriate, variously including the following: *Automated exposure control *Adjustment of mA and/or kV according to patient size (this includes techniques or standardized protocols for targeted exams where dose is matched to indication/reason for exam; i.e. extremities or head) *Use of iterative reconstruction technique DLP: 299 mGy/cm. FINDINGS: On preliminary CT imaging with patient in right lateral decubitus view there are a few calcifications seen in both kidneys likely vascular. No focal lesion seen. Visualized liver, spleen, pancreas, gallbladder and adrenal glands unremarkable. CT fluoroscopy guided lower pole right kidney cortex core biopsy performed with 3 passes done. Post biopsy of very small perinephric hematoma was noted. CT/CT biopsy renal LT IMPRESSION: Successful CT fluoroscopy guided right renal biopsy performed without immediate complications. Electronically signed by: Juan Luis Osuna MD 02/17/2025 02:09 PM [facility]
--- NOTE | ~2025-02-12 | IR_ITS ---
PROCEDURE: IR INSERTION OF TUNNEL CATHETER CLINICAL INFORMATION: Renal failure COMPARISON: None available. TECHNIQUE: Procedure risks and benefits including bleeding, infection and pneumothorax were discussed with the patient and informed consent was obtained. All elements of maximal sterile barrier technique followed including use of cap, mask, sterile gown, sterile gloves, a sterile full body drape and hand hygiene. Also followed skin preparation with 2% chlorhexidine for cutaneous antisepsis. The right neck chest and existing temporary dialysis catheter were prepped and draped in usual sterile fashion. Both ports of the existing temporary dialysis catheter were aspirated. The skin and soft tissues in the right lower neck surrounding the catheter were anesthetized with 1% lidocaine plain. The skin and soft tissues of the right upper anterior chest were anesthetized with 1% lidocaine plain. A small incision was made. A subcutaneous tunnel from the neck to the chest was anesthetized with 1% lidocaine plain. Using a tunneler, a 14.5 Citizen [place] 23 cm in length PICC line catheter from the catheter was tunneled from the chest to the neck incision. No 3 5 guidewire was advanced through the temporary dialysis catheter into the IVC. Through the peel-away sheath, new permacath was advanced centrally. The neck incision was closed using a 4.0 absorbable subcuticular suture. The chest incision was closed using a 4.0 absorbable mattress suture. Both ports flushed well, had good blood return and were instilled with 1.8 mL heparin 1000 units per mL solution. Patient received fentanyl 25 mcg Ancef 2 g IV during the procedure. Fluoroscopy time 0.2 minutes. Cumulative DAP 0.053 mgy per meter squared. FINDINGS: There is a right internal jugular 14.5 [place] 23 cm in length glidepath permacath with tip projecting over the right atrium. IR/IR cvc insert central tunnel IMPRESSION: Right internal jugular 14.5 [place] 23 cm in length glidepath permacath placement. Electronically signed by: Rosanna Kraus MD 02/24/2025 02:13 PM [facility]
--- NOTE | 2025-02-12 11:24 | ECG_ITS ---
Test Reason : WEAKNESS Blood Pressure : */* mmHG Vent. Rate : 109 BPM Atrial Rate : 109 BPM P-R Int : 154 ms QRS Dur : 94 ms QT Int : 336 ms P-R-T Axes : 33 64 4 degrees QTcB Int : 452 ms Sinus tachycardia Low voltage QRS T wave abnormality, consider inferior ischemia Abnormal ECG When compared with ECG of 30-Sep-2024 12:34, Questionable change in QRS duration Referred By: Generic ED Physician Electronically Signed By: Konrad Montoya
[2025-02-12 11:36] LABS: Glucose, Whole Blood 53 mg/dL (60-115)
[2025-02-12 11:40] LABS: MANUAL DIFF FLAG NO
[2025-02-12 11:43] LABS: Hematocrit 40.5 % (37.0-47.0); Hemoglobin 12.4 g/dl (12.0-16.0); Imm Gran Abs Auto 0.25 X10*3/uL (0.00-0.03); Imm Gran Pct Auto 1.3 % (0.0-0.4); Lymphocytes Absolute Auto 1.4 X10*3/uL (1.2-4.9); Mean Corpuscular HGB Conc 30.6 g/dl (31.0-35.0); Mean Corpuscular Hemoglobin 28.8 pg (27.0-33.0); Mean Corpuscular Volume 94.0 fL (80.0-98.0); NRBC Abs Auto 0.000 X10*3/uL (0.0-0.012); NRBC Pct Auto 0.0 /100WBC (0.0-0.2); Platelet Count 438 X10*3/uL (160-400); Red Blood Count 4.31 X10*6/uL (4.20-5.50); White Blood Count 18.6 X10*3/uL (4.8-10.8)
--- NOTE | 2025-02-12 11:49 | MHC.EDTECH ---
checked patient blood sugar and it was 53. Nurse aware and I gave another 120 of OJ
[2025-02-12 11:52] LABS: INTERNATIONAL NORM RATIO 1.2 (0.9-1.1); Prothrombin Time 14.7 SEC (11.2-13.5)
[2025-02-12 12:00] LABS: Influenza B2 Negative (Negative)
[2025-02-12 12:01] LABS: COVID-19 Test Negative (Negative); IDNOW Serial# 58CA691E
--- NOTE | 2025-02-12 12:20 | ED.WEAKNESS ---
HPI - Weakness General Chief complaint: Weakness Stated complaint: ABD PAIN,N/V X3D PER EMS Time Seen by Provider: 02/12/25 12:17 History of Present Illness HPI Narrative: 59-jrfs-zuk-year old female with medical history significant for RA, diabetic neuropathy, diabetes, hypertension, CAD, hyperlipidemia, asthma, PAD/with vascular insufficiency who presents emergency department for evaluation of 3 days of weakness to the point where she is having difficulty walking or holding upper arms. Patient states that she has had nausea with an episode of vomiting yesterday and today. Patient states that she has had poor appetite in his not been eating but she has been drinking fluid. The patient states that she had a nonhealing foot ulcer with peripheral artery disease to her right foot which was treated at [facility]. I reviewed the patient's portal from [facility], 01/28/2025 she had an angiogram of her right leg with Re-cannulation of the occlusions to the right posterior tibial artery and anterior tibial artery. Related Data Previous Rx's ?Medication ?Instructions ?Recorded sucralfate 100 mg/mL oral 10 ml PO BID 30 days #600 mL 11/04/23 suspension (Carafate) nebulizer accessories #1 ea 02/22/24 nebulizers #1 ea 02/22/24 albuterol sulfate 2.5 mg/3 mL 2.5 mg (3 mL) continuous 03/11/24 (0.083 %) solution for nebulization nebulization QID PRN shortness of breath or wheezing 30 days #180 mL ondansetron 4 mg disintegrating 4 mg PO Q8H PRN nausea and 04/29/24 tablet vomiting #30 tabs blood sugar diagnostic (FreeStyle 1 strip miscellaneous TID #100 05/15/24 Test strips) strips lisinopril 20 mg tablet 20 mg PO DAILY #90 tabs 06/12/24 lancets 28 gauge (FreeStyle #100 ea 07/01/24 Lancets) Ventolin HFA 90 mcg/actuation 2 puff inhalation Q6H PRN 08/21/24 aerosol inhaler (albuterol sulfate) bronchospasm #18 grams omeprazole 20 mg capsule,delayed 20 mg PO DAILY 90 days #90 caps 09/12/24 release albuterol sulfate 2.5 mg/3 mL 2.5 mg (3 mL) inhalation Q4-6H PRN 12/18/24 (0.083 %) solution for nebulization Wheezing #75 mL metformin 1,000 mg tablet 1,000 mg PO BID #180 tabs 12/26/24 oxycodone 5 mg tablet 5 mg PO Q8H PRN pain 4 days #14 01/10/25 tabs nystatin 100,000 unit/mL oral 10 ml buccal TID 10 days #300 mL 01/23/25 suspension oxycodone 30 mg tablet 30 mg PO Q12H pain 28 days #56 tabs 01/26/25 zolpidem 10 mg tablet 10 mg PO BEDTIME PRN insomnia 30 01/26/25 days #30 tabs rosuvastatin 40 mg tablet (Crestor) 40 mg PO DAILY 90 days #90 tabs 02/05/25 tramadol 50 mg tablet 50 mg PO TID PRN pain #90 tabs 02/05/25 Allergies Allergy/AdvReac Type Severity Reaction Status Date / Time No Known Allergies Allergy Verified 02/12/25 11:24 [facility] Past Medical History Medical History (Updated 02/12/25 @ 15:09 by Prateek Morris MD) 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 Lumbar degenerative disc disease Mixed hyperlipidemia Venous insufficiency of both lower extremities Abnormal bruising Obesity (BMI 30-39.9) Anxiety Insomnia GERD (gastroesophageal reflux disease) Vitamin D deficiency Ureterolithiasis Neuropathy Varicose veins of bilateral lower extremities with pain Rheumatoid arthritis Cervical spondylosis with radiculopathy Asthma Iron deficiency anemia, unspecified Vitamin B12 deficiency Hyperlipidemia Hypertension, essential, benign Diabetes mellitus Surgical History History of atherectomy Hx of lithotripsy History of surgery on left wrist History of surgery on right wrist History of arthroplasty of left ankle History of arthroplasty of right ankle S/P VANESSA-BSO (total abdominal hysterectomy and bilateral salpingo-oophorectomy) History of arthroplasty of right knee (~2008) Family History Family History Father Chronic mental illness Mother Diabetes Hypertension Stroke Sister Heart disease Diabetes Social History Social History Household Members: Family Housing: Apartment Alcohol intake: never Patient Tobacco Use Status: Former Tobacco user Years Smoked: quit 6 years ago Smoked in Last 30 Days: No e-Cigarette/Vaping Use: Never Used Second Hand Smoke Exposure: No Use of substances other than those prescribed or required for medical reasons: No Substance Use Type: Prescription Drugs Advance Directives: No Advance Directives Information Provided: Yes Do you have a plan to hurt others: No Plan service: No Current occupational status: disabled Cognitive needs: No (cane) Hearing needs: No Vision needs: Yes (glasses) Physical Exam Vital Signs: Vital Signs: Last Vital Signs Temp 98.8 F 02/12/25 11:20 Pulse 123 H 02/12/25 14:45 Resp 14 02/12/25 14:45 BP 154/83 H 02/12/25 14:45 Pulse Ox 100 02/12/25 14:45 O2 Del Method Room Air 02/12/25 14:45 BMI result Body Mass Index 26.6 Vital signs revealed an elevated blood pressure of 150/90, elevated heart rate of 111 Exam: General: Awake, alert in no distress Head: Normocephalic, atraumatic EENT: PERRL, sclera and conjunctiva are normal, mouth with no erythema or exudates Neck: Supple, no adenopathy Lung: breath sounds symmetric, no wheezing, no rales and no rhonchi Chest: symmetric movement, nontender Heart: regular rate and rhythm, normal S1, S2 no murmurs or rubs Abdomen: soft, mild to moderate diffuse tenderness, nondistended, normal bowel sounds Back: no vertebral tenderness, no CVAT Extremities: no deformities, patient has significant weakness of upper and lower extremities, in his barely able to hold her extremities up against gravity Neuro: Awake, alert, oriented, normal speech, cranial nerves 2-12 intact, upper and lower extremity weakness Psych: Pleasant, cooperative Medications Administered Generic Name Dose Route Start Last Admin Trade Name Freq PRN Reason Stop Dose Admin Dextrose/Sodium Chloride 1,000 mls @ 125 mls/hr 02/12/25 12:45 02/12/25 12:56 D5ns IVCONT 125 mls/hr .Q8H IAN Administration Sodium Bicarbonate 150 meq/ 1,000 mls @ 125 mls/hr 02/12/25 13:00 02/12/25 13:57 Dextrose IV 125 mls/hr .Q8H IAN Administration Discontinued Medications Generic Name Dose Route Start Last Admin Trade Name Vy PRN Reason Stop Dose Admin Albuterol Sulfate 7.5 mg/ 10 mg 02/12/25 12:40 02/12/25 12:54 Albuterol Sulfate 2.5 mg INHALE 02/12/25 12:41 10 mg ONCE ONE Administration Dextrose 25 gm 02/12/25 12:40 02/12/25 12:56 Dextrose 50 % 25 Gm/50 Ml Syringe IVPUSH 02/12/25 12:41 25 gm ONCE ONE Administration Insulin Human Regular 5 unit 02/12/25 12:59 02/12/25 13:34 Insulin Regular, Human 100 Unit/Ml 10 Ml Vial IVPUSH 02/12/25 13:00 5 unit ONCE ONE Administration Ondansetron HCl 4 mg 02/12/25 14:20 02/12/25 14:38 Ondansetron Hcl 4 Mg/2 Ml Vial IVPUSH 02/12/25 14:21 4 mg ONCE ONE Administration Sodium Bicarbonate 50 meq 02/12/25 13:00 02/12/25 13:40 Sodium Bicarbonate 8.4% 50 Meq/50 Ml Syringe IVPUSH 02/12/25 13:06 Not Given Q5M [facility] Sodium Zirconium Cyclosilicate 10 gm 02/12/25 12:40 02/12/25 12:56 Sodium Zirconium Cyclosilicate 10 Gm Powd.Pack PO 02/12/25 12:41 10 gm ONCE ONE Administration Sodium Zirconium Cyclosilicate 10 gm 02/12/25 14:20 02/12/25 14:39 Sodium Zirconium Cyclosilicate 10 Gm Powd.Pack PO 02/12/25 14:21 10 gm ONCE ONE Administration Medical Decision Making Medical Decision Making MDM Narrative: 20-lphk-joj-year old female with medical history significant for RA, diabetic neuropathy, diabetes, hypertension, CAD, hyperlipidemia, asthma, PAD/with vascular insufficiency who presents emergency department for evaluation of 3 days of weakness to the point where she is having difficulty walking or holding upper arms. Patient states that she has had nausea with an episode of vomiting yesterday and today. Patient states that she has had poor appetite in his not been eating but she has been drinking fluid.The patient states that she had a nonhealing foot ulcer with peripheral artery disease to her right foot which was treated at [facility]. I reviewed the patient's portal from [facility], 01/28/2025 she had an angiogram of her right leg with Re-cannulation of the occlusions to the right posterior tibial artery and anterior tibial artery. Vital signs revealed an elevated blood pressure and elevated heart rate. Physical examination revealed weakness of both her upper and lower extremities, she also had diffuse mild to moderate abdominal tenderness, otherwise exam was unremarkable. Differential diagnosis: ?Includes but is not limited to viral syndrome, COVID-19, influenza, RSV, anemia, electrolyte abnormalities Course: 13:00 My interpretation patient's laboratory evaluation is as follows: WBC elevated 18,600, no anemia with an H&H of 12.4 and 40.5. Platelet count was elevated 438,000. PT INR elevated 14.7 and 1.2. VBG revealed that the patient was acidotic with a pH of 7.19, low pCO2 18 and a low bicarb of 7. Potassium was elevated 7.9-this was confirmed by the lab. Bicarb low 9. Anion gap elevated 31. BUN and creatinine elevated 78 in 10.42 compared to a BUN creatinine of 13 and 1.03 on 02/23/2025. Glucose low 59. AST elevated to 45. ALT elevated 64. NT pro BNP elevated 5455. Beta hydroxybutyrate elevated 6.22. Her laboratory abnormalities are most consistent with acute renal failure. I did discuss the patient's presentation with the covering vegetable packer, Dr. Holden. After this discussion I ordered the following medications: D50 25 mg IV, regular insulin 5 units IV, D5 NS x2 L, D5 W with 150 mEq of sodium bicarb at 150 mEq per hour, high dose albuterol nebulizer 10 mg, low, 10 mg orally. Candelaria catheter was inserted to follow the patient's urinary output. I also ordered a CT scan of the abdomen pelvis to evaluate the patient's abdominal pain and rule out obstructive process/hydronephrosis. Patient will have a repeat BMP and VBG at 15:30 hours 15:07 Patient vomited immediately after drinking 1st dose of Lokelma, therefore I ordered Zofran 4 mg IV and repeat dose of Lokelma 10 mg orally. I did discuss the patient's presentation with the covering electronics warfare technician, Dr. Sorensen and he did accept the patient into the intensive care unit. He did see the patient here in the emergency department and he recommended that the patient get 2 L of LR instead of D5 NS. Differential Diagnosis Differential Diagnoses: The differential diagnosis associated with the presentation includes (See above) Admission/Observation Consideration of admission/observation: Escalation of care including admission/observation considered (Yes) Consult Healthcare Provider Management of the patient was discussed with: Bike Assembler (Culinary Artist, Dr. Sorensen. Hog Grader, Dr. Holden) Lab Data MDM Lab Attestation statement: I reviewed the patient's lab results. 02/12/25 11:32 02/12/25 11:32 Labs: Lab Results 02/12/25 02/12/25 02/12/25 Range/Units 11:23 11:32 11:35 WBC 18.6 H (4.8-10.8) X10*3/uL RBC 4.31 (4.20-5.50) X10*6/uL Hgb 12.4 (12.0-16.0) g/dl Hct 40.5 (37.0-47.0) % MCV 94.0 (80.0-98.0) fL MCH 28.8 (27.0-33.0) pg MCHC 30.6 L (31.0-35.0) g/dl RDW 19.5 H (11.0-16.0) % Plt Count 438 H (160-400) X10*3/uL MPV 9.9 (9.4-12.3) fL Immature Gran % (Auto) 1.3 H (0.0-0.4) % Neut % (Auto) 84.9 H (45-73) % Lymph % (Auto) 7.5 L (20-40) % [place] % (Auto) 5.3 (2-11) % Eos % (Auto) 0.2 (0-4) % Baso % (Auto) 0.8 (0-2) % Lymph # (Auto) 1.4 (1.2-4.9) X10*3/uL [place] # (Auto) 1.0 (0.1-1.2) X10*3/uL Eos # (Auto) 0.0 (0.0-0.4) X10*3/uL Baso # (Auto) 0.1 (0.0-0.2) X10*3/uL Abs Immat Gran (auto) 0.25 H (0.00-0.03) X10*3/uL Absolute Neuts (auto) 15.9 H (2.0-8.3) x10*3/uL Absolute Nucleated RBC 0.000 (0.0-0.012) X10*3/uL Nucleated RBC % (auto) 0.0 (0.0-0.2) /100WBC Hold Purple Top SEE NOTE PT 14.7 H D (11.2-13.5) SEC INR 1.2 H (0.9-1.1) VBG pH (7.32-7.43) VBG pCO2 mmHg VBG pO2 mmHg VBG HCO3 (22-26) mmol/L VBG O2 Saturation % VBG Base Excess mmol/L Sodium 140 (135-145) mmol/L Potassium 7.9 H* D (3.3-5.1) mmol/L Chloride 108 (96-108) mmol/L Carbon Dioxide 9 L* D (22-29) mmol/L Anion Gap 31 H (12-20) BUN 78 H (9-16) mg/dL Creatinine 10.42 H* (0.5-1.4) mg/dL Estim Creat Clear Calc 5.5 Estimated GFR 4 POC Glucose 53 L* (60-115) mg/dL Random Glucose 59 L* (60-115) mg/dL Calcium 10.0 (8.4-10.2) mg/dL Magnesium 2.3 (1.6-2.6) mg/dL Total Bilirubin 0.4 (0.0-1.0) mg/dL AST 245 H (5-31) U/L ALT 64 H (0-31) U/L Alkaline Phosphatase 102 (39-117) U/L NT-Pro-B Natriuret Pep 5455.8 H (<300) pg/mL Total Protein 8.1 H (6.5-8.0) g/dL Albumin 3.6 (3.5-5.0) g/dL Beta-Hydroxybutyrate (0.02-0.27) mmol/L Urine Color Urine Appearance Urine pH (5.0-9.0) Ur Specific [place] (1.005-1.025) Urine Protein (Neg-Trace) mg/dL Urine Glucose (UA) (Negative) mg/dL Urine Ketones (Negative) mg/dL Urine Blood (Negative) Urine Nitrite (Negative) Ur Leukocyte Esterase (Negative) Urine RBC (0-2) /HPF Urine WBC (0-5) /HPF Ur Squamous Epith Cells (0-2) /HPF Urine Bacteria (None Seen) Hyaline Casts (0-2) /LPF Granular Casts COVID-19 (STEPHY) Negative (Negative) COVID-19 Clin Com See Note Influenza Type A (CARITO) Negative (Negative) Influenza Type B (CARITO) Negative (Negative) Influenza A & B Note See Note 02/12/25 02/12/25 02/12/25 Range/Units 12:32 12:54 12:59 WBC (4.8-10.8) X10*3/uL RBC (4.20-5.50) X10*6/uL Hgb (12.0-16.0) g/dl Hct (37.0-47.0) % MCV (80.0-98.0) fL MCH (27.0-33.0) pg MCHC (31.0-35.0) g/dl RDW (11.0-16.0) % Plt Count (160-400) X10*3/uL MPV (9.4-12.3) fL Immature Gran % (Auto) (0.0-0.4) % Neut % (Auto) (45-73) % Lymph % (Auto) (20-40) % [place] % (Auto) (2-11) % Eos % (Auto) (0-4) % Baso % (Auto) (0-2) % Lymph # (Auto) (1.2-4.9) X10*3/uL [place] # (Auto) (0.1-1.2) X10*3/uL Eos # (Auto) (0.0-0.4) X10*3/uL Baso # (Auto) (0.0-0.2) X10*3/uL Abs Immat Gran (auto) (0.00-0.03) X10*3/uL Absolute Neuts (auto) (2.0-8.3) x10*3/uL Absolute Nucleated RBC (0.0-0.012) X10*3/uL Nucleated RBC % (auto) (0.0-0.2) /100WBC Hold Purple Top PT (11.2-13.5) SEC INR (0.9-1.1) VBG pH 7.19 L* (7.32-7.43) VBG pCO2 18 mmHg VBG pO2 208 mmHg VBG HCO3 7 L (22-26) mmol/L VBG O2 Saturation 99.0 % VBG Base Excess -18.6 mmol/L Sodium (135-145) mmol/L Potassium (3.3-5.1) mmol/L Chloride (96-108) mmol/L Carbon Dioxide (22-29) mmol/L Anion Gap (12-20) BUN (9-16) mg/dL Creatinine (0.5-1.4) mg/dL Estim Creat Clear Calc Estimated GFR POC Glucose 45 L* (60-115) mg/dL Random Glucose (60-115) mg/dL Calcium (8.4-10.2) mg/dL Magnesium (1.6-2.6) mg/dL Total Bilirubin (0.0-1.0) mg/dL AST (5-31) U/L ALT (0-31) U/L Alkaline Phosphatase (39-117) U/L NT-Pro-B Natriuret Pep (<300) pg/mL Total Protein (6.5-8.0) g/dL Albumin (3.5-5.0) g/dL Beta-Hydroxybutyrate 6.22 H (0.02-0.27) mmol/L Urine Color Urine Appearance Urine pH (5.0-9.0) Ur Specific [place] (1.005-1.025) Urine Protein (Neg-Trace) mg/dL Urine Glucose (UA) (Negative) mg/dL Urine Ketones (Negative) mg/dL Urine Blood (Negative) Urine Nitrite (Negative) Ur Leukocyte Esterase (Negative) Urine RBC (0-2) /HPF Urine WBC (0-5) /HPF Ur Squamous Epith Cells (0-2) /HPF Urine Bacteria (None Seen) Hyaline Casts (0-2) /LPF Granular Casts COVID-19 (STEPHY) (Negative) COVID-19 Clin Com Influenza Type A (CARITO) (Negative) Influenza Type B (CARITO) (Negative) Influenza A & B Note 02/12/25 02/12/25 02/12/25 Range/Units 13:30 13:35 14:42 WBC (4.8-10.8) X10*3/uL RBC (4.20-5.50) X10*6/uL Hgb (12.0-16.0) g/dl Hct (37.0-47.0) % MCV (80.0-98.0) fL MCH (27.0-33.0) pg MCHC (31.0-35.0) g/dl RDW (11.0-16.0) % Plt Count (160-400) X10*3/uL MPV (9.4-12.3) fL Immature Gran % (Auto) (0.0-0.4) % Neut % (Auto) (45-73) % Lymph % (Auto) (20-40) % [place] % (Auto) (2-11) % Eos % (Auto) (0-4) % Baso % (Auto) (0-2) % Lymph # (Auto) (1.2-4.9) X10*3/uL [place] # (Auto) (0.1-1.2) X10*3/uL Eos # (Auto) (0.0-0.4) X10*3/uL Baso # (Auto) (0.0-0.2) X10*3/uL Abs Immat Gran (auto) (0.00-0.03) X10*3/uL Absolute Neuts (auto) (2.0-8.3) x10*3/uL Absolute Nucleated RBC (0.0-0.012) X10*3/uL Nucleated RBC % (auto) (0.0-0.2) /100WBC Hold Purple Top PT (11.2-13.5) SEC INR (0.9-1.1) VBG pH (7.32-7.43) VBG pCO2 mmHg VBG pO2 mmHg VBG HCO3 (22-26) mmol/L VBG O2 Saturation % VBG Base Excess mmol/L Sodium (135-145) mmol/L Potassium (3.3-5.1) mmol/L Chloride (96-108) mmol/L Carbon Dioxide (22-29) mmol/L Anion Gap (12-20) BUN (9-16) mg/dL Creatinine (0.5-1.4) mg/dL Estim Creat Clear Calc Estimated GFR POC Glucose 115 84 (60-115) mg/dL Random Glucose (60-115) mg/dL Calcium (8.4-10.2) mg/dL Magnesium (1.6-2.6) mg/dL Total Bilirubin (0.0-1.0) mg/dL AST (5-31) U/L ALT (0-31) U/L Alkaline Phosphatase (39-117) U/L NT-Pro-B Natriuret Pep (<300) pg/mL Total Protein (6.5-8.0) g/dL Albumin (3.5-5.0) g/dL Beta-Hydroxybutyrate (0.02-0.27) mmol/L Urine Color Yellow Urine Appearance Cloudy Urine pH 5.5 (5.0-9.0) Ur Specific [place] 1.015 (1.005-1.025) Urine Protein 100 (2+) H (Neg-Trace) mg/dL Urine Glucose (UA) 100 H (Negative) mg/dL Urine Ketones 15 (Negative) mg/dL Urine Blood Large (3+) H (Negative) Urine Nitrite Negative (Negative) Ur Leukocyte Esterase Negative (Negative) Urine RBC 3-5 H (0-2) /HPF Urine WBC 0-5 (0-5) /HPF Ur Squamous Epith Cells 3-5 (0-2) /HPF Urine Bacteria None Seen (None Seen) Hyaline Casts 6-10 (0-2) /LPF Granular Casts Present COVID-19 (STEPHY) (Negative) COVID-19 Clin Com Influenza Type A (CARITO) (Negative) Influenza Type B (CARITO) (Negative) Influenza A & B Note Independent Interpretation I performed an independent interpretation of an: EKG Interpretation: My independent interpretation patient's 12 EKG done on 02/12/2025 at 11:41 hours is as follows: Sinus tachycardia with a rate of 109, normal LA interval, QRS duration QTC interval, no ST segment elevation, no ST segment depression, inverted T-wave in lead 3, no peaked T-waves. Compared to an EKG dated 09/30/2024 at 12:34 hours, inverted T-wave in 3 is new, Independent Historian Clinical information obtained from an independent historian. History obtained from or confirmed by: Spouse External Record Review External record reviewed: Inpatient record Chronic Conditions Patient?s care impacted by: Diabetes Critical Care Time Critical Care Time Critical Care Time: Yes Total Critical Care Time: 80 Attestation: Critical Care: The patient was critically ill with a high probability of imminent or life threatening deterioration. I spent greater than 30 minutes of discontinuous time evaluating the patient,delivering critical care at the bedside, discussing and evaluating pertinent data with consultants. Critical care time does not include time spent performing separately billable procedures or teaching. Total time spent performing critical care was 80 minutes. Discharge Plan Discharge Prescriptions: No Action sucralfate [Carafate] 100 mg/mL suspension 10 ml PO BID 30 Days Qty: 600 0RF (DME) nebulizers Mis See Rx Instructions .Route Qty: 1 0RF Rx Instructions: As directed (DME) nebulizer accessories Kit See Rx Instructions .Route Qty: 1 0RF Rx Instructions: As directed albuterol sulfate 2.5 mg /3 mL (0.083 %) solution for nebulization 2.5 mg continuous nebulization QID PRN (Reason: shortness of breath or wheezing) 30 Days Qty: 180 3RF ondansetron 4 mg tablet,disintegrating 4 mg PO Q8H PRN (Reason: nausea and vomiting) Qty: 30 0RF FreeStyle Test Strip 1 strip miscellaneous TID Qty: 100 3RF lisinopril 20 mg tablet 20 mg PO DAILY Qty: 90 3RF (DME) lancets [FreeStyle Lancets] 28 gauge misc See Rx Instructions .Route Qty: 100 0RF Rx Instructions: As directed three times per day albuterol sulfate [Ventolin HFA] 90 mcg/actuation HFA aerosol inhaler 2 puff inhalation Q6H PRN (Reason: bronchospasm) Qty: 18 5RF omeprazole 20 mg capsule,delayed release(DR/EC) 20 mg PO DAILY 90 Days Qty: 90 1RF albuterol sulfate 2.5 mg /3 mL (0.083 %) solution for nebulization 2.5 mg inhalation Q4-6H PRN (Reason: Wheezing) Qty: 75 3RF metformin 1,000 mg tablet 1,000 mg PO BID Qty: 180 0RF nystatin 100,000 unit/mL suspension 10 ml buccal TID 10 Days Qty: 300 0RF Rx Instructions: swish 1/2 of dose in each side of the mouth for up to 5 minutes, then spit out the medicine oxycodone 30 mg tablet 30 mg PO Q12H 28 Days Qty: 56 0RF zolpidem 10 mg tablet 10 mg PO BEDTIME PRN (Reason: insomnia) 30 Days Qty: 30 1RF rosuvastatin [Crestor] 40 mg tablet 40 mg PO DAILY 90 Days Qty: 90 3RF tramadol 50 mg tablet 50 mg PO TID PRN (Reason: pain) Qty: 90 0RF oxycodone 5 mg tablet 5 mg PO Q8H PRN (Reason: pain) 4 Days Qty: 14 0RF Rx Instructions: Partial Fill upon patient request. Print Language: Irish
[2025-02-12 12:21] LABS: Alanine Aminotransferase 64 U/L (0-31); Albumin Level 3.6 g/dL (3.5-5.0); Alkaline Phosphatase 102 U/L (39-117); Anion Gap 31 (12-20); Aspartate Amino Transferase 245 U/L (5-31); Blood Urea Nitrogen 78 mg/dL (9-16); Calcium 10.0 mg/dL (8.4-10.2); Carbon Dioxide 9 mmol/L (22-29); Chloride 108 mmol/L (96-108); Creatinine Clr Calc Pharmacy 5.5; Estimated Glomerular Filt Rate 4; Magnesium 2.3 mg/dL (1.6-2.6); Potassium 7.9 mmol/L (3.3-5.1); Sodium 140 mmol/L (135-145); Total Protein 8.1 g/dL (6.5-8.0)
--- NOTE | 2025-02-12 12:39 | PC.NURSE ---
Rechecked POC, 45 - provider Dr. Morris made aware, to order medication
[2025-02-12] MEDS: Albuterol Sulfate 7.5 MG, Albuterol Sulfate (0.083%) 2.5 MG 10 MG INHALE (12:54)
[2025-02-12 13:05] LABS: Venous Blood Gas Refer to POC result
[2025-02-12 13:05] LABS: VBG HCO3 7 mmol/L (22-26); VBG O2 % Saturation 99.0 %
--- NOTE | 2025-02-12 13:40 | PC.NURSE ---
Provider ordered 2 amps of bicarb, confirmed this is what they wanted - provider wanted only ONE amp of bicarb given, documented against 2nd amp in APR. Bicarb gtt to be started once pharmacy delivers.
[2025-02-12 13:42] LABS: Glucose, Whole Blood 45 mg/dL (60-115)
[2025-02-12 13:43] LABS: Glucose, Whole Blood 115 mg/dL (60-115)
[2025-02-12 13:43] LABS: Appearance Urine Cloudy; Glucose Urine UA 100 mg/dL (Negative); PH 5.5 (5.0-9.0); Specific Gravity - Urine 1.015 (1.005-1.025); UMIC TRIGGER UACC YES
--- NOTE | 2025-02-12 13:47 | PC.NURSE ---
16F FC inserted w/o complication. Pt vomitting immediately after attempting to drink Lokelma, provider made aware.
[2025-02-12] MEDS: Sodium Bicarbonate 8.4% 150 MEQ in Dextrose 5 % 850 ML 125 MEQ IV (13:57)
[2025-02-12 14:47] LABS: Glucose, Whole Blood 84 mg/dL (60-115)
[2025-02-12 14:54] LABS: Glucose, Whole Blood 53 mg/dL (60-115)
[2025-02-12] MEDS: Lactated Ringers 1,000 ML 999 ML IV ×2 (15:13)
[2025-02-12 15:36] LABS: Cannabinoid Screen Urine Not Detected (Not Detect)
[2025-02-12 15:46] LABS: VBG HCO3 9 mmol/L (22-26); VBG O2 % Saturation 86.0 %
--- NOTE | 2025-02-12 15:52 | P.HPCC_ITS ---
History of Present Illness Date of Service: 02/12/25 Chief Complaint: Acute renal failure, metabolic acidosis 65-year-old lady with underlying rheumatoid arthritis, diabetes with neuropathy, hypertension, coronary artery disease, peripheral artery disease with recent angiogram and recanalization of the right posterior and anterior tibial arteries admitted on 02/12/2025 the day history of malaise. On ER evaluation patient acute renal failure profound metabolic hyperkalemia, started on IV fluid resuscitation, making urine. CT abdomen with no evidence of hydronephrosis. Review of Systems 2 Constitutional: Constitutional: Denies daytime sleepiness, Denies excessive sweating, Denies fatigue, Denies fever(s), Denies lethargy, Reports malaise, Denies night sweats, Denies snoring and Denies weight loss Eyes: Eyes: Denies blurry vision and Denies itchy eyes ENT: Denies nasal congestion, Denies post nasal drip, Denies sinus pain, Denies sinus pressure and Denies other ( Thrush) Cardiovascular: Cardiovascular: Denies chest pain, Denies pedal edema, Denies dyspnea, Denies orthopnea and Denies paroxysmal nocturnal dyspnea Respiratory: Respiratory: Denies cough, Denies hemoptysis, Denies excessive phlegm production, Denies dyspnea, Denies snoring and Denies wheezing Gastrointestinal: Gastrointestinal: Denies abdominal pain and Denies heartburn Musculoskeletal: Musculoskeletal: Denies myalgias, Denies arthralgias and Denies joint swelling Integumentary/Breasts: Skin/Breast: Denies rash Neurologic: Denies memory loss and Denies seizure-like activity Psychiatric: Psychiatric: Denies abnormal sleep pattern, Denies anxiety and Denies memory loss Endocrine: Endocrine: Denies excessive sweating, Denies fatigue and Denies heat intolerance Hematologic/Lymphatic: Hematologic/Lymphatic: Denies easy bruising Allergic/Immunologic: Allergic/Immunologic: Denies itchy eyes, Denies seasonal rhinorrhea and Denies wheezing PMFSH Past Medical History Medical History (Updated 02/12/25 @ 15:55 by Juan Antonio Sorensen MD) 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 Lumbar degenerative disc disease Mixed hyperlipidemia Venous insufficiency of both lower extremities Abnormal bruising Obesity (BMI 30-39.9) Anxiety Insomnia GERD (gastroesophageal reflux disease) Vitamin D deficiency Ureterolithiasis Neuropathy Varicose veins of bilateral lower extremities with pain Rheumatoid arthritis Cervical spondylosis with radiculopathy Asthma Iron deficiency anemia, unspecified Vitamin B12 deficiency Hyperlipidemia Hypertension, essential, benign Diabetes mellitus Family History Family History Father Chronic mental illness Mother Diabetes Hypertension Stroke Sister Heart disease Diabetes Surgical History Surgical History History of atherectomy Hx of lithotripsy History of surgery on left wrist History of surgery on right wrist History of arthroplasty of left ankle History of arthroplasty of right ankle S/P VANESSA-BSO (total abdominal hysterectomy and bilateral salpingo-oophorectomy) History of arthroplasty of right knee (~2008) Social History Social History Household Members: Spouse Housing: Apartment Do you presently have visiting nurse or other home services: No Alcohol intake: never Patient Tobacco Use Status: Former Tobacco user Years Smoked: quit 6 years ago Smoked in Last 30 Days: No e-Cigarette/Vaping Use: Never Used Second Hand Smoke Exposure: No Use of substances other than those prescribed or required for medical reasons: No Substance Use Type: Prescription Drugs Currently Displaying Signs/Symptoms of Drug Intoxication Withdrawal: No Have you been hit, kicked, punched, or otherwise hurt by someone within the past year? If so, by whom?: No Do you feel safe in your current relationship?: Yes Is there a partner from a previous relationship who is making you feel unsafe now?: No Are you made to feel afraid or neglected: No [facility] Practices: pentocostal Advance Directives: No Advance Directives Information Provided: Yes Do you have a plan to hurt others: No Plan Recently lost weight without trying: Yes How much weight loss: 2-13 pounds Eating poorly because of decreased appetite: Yes Nutrition screen score: 4 Nutrition Risks: Poor intake 0-25% >4 days Patient : No : No service: No Current occupational status: disabled Cognitive needs: No (cane) Hearing needs: No Vision needs: Yes (glasses) Meds Allergies Allergy/AdvReac Type Severity Reaction Status Date / Time lisinopril Allergy Intermediate Angioedema Verified 02/12/25 20:02 Active Medications: Current Medications Heparin Sodium (Porcine) (Heparin Sodium,Porcine 5,000 Unit/Ml Vial) 5,000 unit SUBCUT Q8H IAN Sodium Bicarbonate 150 meq/ (Dextrose) 1,000 mls @ 250 mls/hr IV .Q4H IAN Last Infusion: 02/12/25 15:12 Dose: 250 mls/hr Lactated Ringer's (Lr) 1,000 mls @ 999 mls/hr IV .Q1H1M STA Stop: 02/12/25 16:03 Last Admin: 02/12/25 15:13 Dose: 999 mls/hr Lactated Ringer's (Lr) 1,000 mls @ 999 mls/hr IV .Q1H1M STA Stop: 02/12/25 16:03 Last Admin: 02/12/25 15:13 Dose: 999 mls/hr Home Medications ?Medication ?Instructions ?Recorded ?Confirmed ?Last Taken ?Type albuterol sulfate 2.5 mg/3 mL 2.5 mg inhalation Q4H TX N Wheezing 02/12/25 02/12/25 Unknown History (0.083 %) solution for nebulization albuterol sulfate 90 mcg/actuation 2 puff inhalation Q 6H PRN muscle 02/12/25 02/12/25 Unknown History aerosol inhaler (Ventolin HFA) spasm aspirin 81 mg tablet,delayed 81 mg PO DAILY 02/12/25 1 04/15/24 02/11/25 History release clopidogrel 75 mg tablet 75 mg PO DAILY 02/12/2501/2602/11/25 History gabapentin 300 mg capsule 300 mg PO BID 02/12/2502/1202/11/25 History lidocaine 5 % topical patch 1 patch topical DAILY PRN Pain 02/12/25 02/12/25 02/11/25 History omeprazole 20 mg capsule,delayed 20 mg PO DAILY@0630 1 04/15/24 02/12/25 02/11/25 History release oxycodone 30 mg tablet 30 mg PO Q12H PRN pain 02/1202/12/25 Unknown History Physical Exam 2 Vital Signs: Vital Signs: Last Vital Signs Temp 98.8 F 02/12/25 11:20 Pulse 123 H 02/12/25 14:45 Resp 14 02/12/25 14:45 BP 154/83 H 02/12/25 14:45 Pulse Ox 100 02/12/25 14:45 O2 Del Method Room Air 02/12/25 14:45 BMI result Body Mass Index 26.6 Const: General: no acute distress and alert Nutritional Appearance: not obese Orientation/consciousness: Other orientation findings ( oriented) HEENT: Head: Yes atraumatic Eyes: General: appearance normal, both eyes and all related structures S clerae: sclerae normal EOM: EOMs intact bilaterally Neck: Neck: Yes supple Lymphatic: no lymphadenopathy noted Resp: Effort & Inspection: normal respiratory effort and no use of accessory muscles Auscultation: clear to auscultation bilaterally Cardio: Rate: regular rate Rhythm: regular rhythm Heart sounds: no gallops, no murmurs and no rubs Skin: General skin exam: other ( warm) Extrem: General: No clubbing, No cyanosis and No edema Results Labs 02/13/25 05:18 02/13/25 05:17 Labs: Laboratory Results - last 24 hr 02/12/25 02/12/25 02/12/25 11:23 11:32 11:35 MCV 94.0 MCH 28.8 MCHC 30.6 L RDW 19.5 H Plt Count 438 H MPV 9.9 Immature Gran % (Auto) 1.3 H Neut % (Auto) 84.9 H Lymph % (Auto) 7.5 L Brooks % (Auto) 5.3 Eos % (Auto) 0.2 Baso % (Auto) 0.8 Lymph # (Auto) 1.4 Brooks # (Auto) 1.0 Eos # (Auto) 0.0 Baso # (Auto) 0.1 Abs Immat Gran (auto) 0.25 H Absolute Neuts (auto) 15.9 H Absolute Nucleated RBC 0.000 Nucleated RBC % (auto) 0.0 Hold Purple Top SEE NOTE PT 14.7 H D INR 1.2 H VBG pH VBG pCO2 VBG pO2 VBG HCO3 VBG O2 Saturation VBG Base Excess Anion Gap 31 H Estim Creat Clear Calc 5.5 Estimated GFR 4 POC Glucose 53 L* Random Glucose 59 L* Calcium 10.0 Magnesium 2.3 Total Bilirubin 0.4 AST 245 H ALT 64 H Alkaline Phosphatase 102 NT-Pro-B Natriuret Pep 5455.8 H Total Protein 8.1 H Albumin 3.6 Beta-Hydroxybutyrate Urine Color Urine Appearance Urine pH Ur Specific Zaleski Urine Protein Urine Glucose (UA) Urine Ketones Urine Blood Urine Nitrite Ur Leukocyte Esterase Urine RBC Urine WBC Ur Squamous Epith Cells Urine Bacteria Hyaline Casts Granular Casts Urine Opiates Screen Ur Buprenorphine Scrn Ur Oxycodone Screen Urine Methadone Screen Urine Fentanyl Screen Ur Barbiturates Screen Ur Phencyclidine Scrn Ur Amphetamines Screen U Benzodiazepines Scrn Urine Cocaine Screen U Marijuana (THC) Screen COVID-19 (STEPHY) Negative COVID-19 Clin Com See Note Influenza Type A (CARITO) Negative Influenza Type B (CARITO) Negative Influenza A & B Note See Note 02/12/25 02/12/25 02/12/25 11:41 12:32 12:54 MCV MCH MCHC RDW Plt Count MPV Immature Gran % (Auto) Neut % (Auto) Lymph % (Auto) Brooks % (Auto) Eos % (Auto) Baso % (Auto) Lymph # (Auto) Brooks # (Auto) Eos # (Auto) Baso # (Auto) Abs Immat Gran (auto) Absolute Neuts (auto) Absolute Nucleated RBC Nucleated RBC % (auto) Hold Purple Top PT INR VBG pH VBG pCO2 VBG pO2 VBG HCO3 VBG O2 Saturation VBG Base Excess Anion Gap Estim Creat Clear Calc Estimated GFR POC Glucose 53 L* 45 L* Random Glucose Calcium Magnesium Total Bilirubin AST ALT Alkaline Phosphatase NT-Pro-B Natriuret Pep Total Protein Albumin Beta-Hydroxybutyrate 6.22 H Urine Color Urine Appearance Urine pH Ur Specific Zaleski Urine Protein Urine Glucose (UA) Urine Ketones Urine Blood Urine Nitrite Ur Leukocyte Esterase Urine RBC Urine WBC Ur Squamous Epith Cells Urine Bacteria Hyaline Casts Granular Casts Urine Opiates Screen Ur Buprenorphine Scrn Ur Oxycodone Screen Urine Methadone Screen Urine Fentanyl Screen Ur Barbiturates Screen Ur Phencyclidine Scrn Ur Amphetamines Screen U Benzodiazepines Scrn Urine Cocaine Screen U Marijuana (THC) Screen COVID-19 (STEPHY) COVID-19 Clin Com Influenza Type A (CARITO) Influenza Type B (CARITO) Influenza A & B Note 02/12/25 02/12/25 02/12/25 12:59 13:30 13:35 MCV MCH MCHC RDW Plt Count MPV Immature Gran % (Auto) Neut % (Auto) Lymph % (Auto) Brooks % (Auto) Eos % (Auto) Baso % (Auto) Lymph # (Auto) Brooks # (Auto) Eos # (Auto) Baso # (Auto) Abs Immat Gran (auto) Absolute Neuts (auto) Absolute Nucleated RBC Nucleated RBC % (auto) Hold Purple Top PT INR VBG pH 7.19 L* VBG pCO2 18 VBG pO2 208 VBG HCO3 7 L VBG O2 Saturation 99.0 VBG Base Excess -18.6 Anion Gap Estim Creat Clear Calc Estimated GFR POC Glucose 115 Random Glucose Calcium Magnesium Total Bilirubin AST ALT Alkaline Phosphatase NT-Pro-B Natriuret Pep Total Protein Albumin Beta-Hydroxybutyrate Urine Color Yellow Urine Appearance Cloudy Urine pH 5.5 Ur Specific Zaleski 1.015 Urine Protein 100 (2+) H Urine Glucose (UA) 100 H Urine Ketones 15 Urine Blood Large (3+) H Urine Nitrite Negative Ur Leukocyte Esterase Negative Urine RBC 3-5 H Urine WBC 0-5 Ur Squamous Epith Cells 3-5 Urine Bacteria None Seen Hyaline Casts 6-10 Granular Casts Present Urine Opiates Screen Not Detected Ur Buprenorphine Scrn Not Detected Ur Oxycodone Screen Not Detected Urine Methadone Screen Not Detected Urine Fentanyl Screen Not Detected Ur Barbiturates Screen Not Detected Ur Phencyclidine Scrn Not Detected Ur Amphetamines Screen Not Detected U Benzodiazepines Scrn Not Detected Urine Cocaine Screen Not Detected U Marijuana (THC) Screen Not Detected COVID-19 (STEPHY) COVID-19 Clin Com Influenza Type A (CARITO) Influenza Type B (CARITO) Influenza A & B Note 02/12/25 02/12/25 14:42 15:39 MCV MCH MCHC RDW Plt Count MPV Immature Gran % (Auto) Neut % (Auto) Lymph % (Auto) Brooks % (Auto) Eos % (Auto) Baso % (Auto) Lymph # (Auto) Brooks # (Auto) Eos # (Auto) Baso # (Auto) Abs Immat Gran (auto) Absolute Neuts (auto) Absolute Nucleated RBC Nucleated RBC % (auto) Hold Purple Top PT INR VBG pH 7.12 L* VBG pCO2 27 VBG pO2 67 VBG HCO3 9 L VBG O2 Saturation 86.0 VBG Base Excess -18.2 Anion Gap Estim Creat Clear Calc Estimated GFR POC Glucose 84 Random Glucose Calcium Magnesium Total Bilirubin AST ALT Alkaline Phosphatase NT-Pro-B Natriuret Pep Total Protein Albumin Beta-Hydroxybutyrate Urine Color Urine Appearance Urine pH Ur Specific Zaleski Urine Protein Urine Glucose (UA) Urine Ketones Urine Blood Urine Nitrite Ur Leukocyte Esterase Urine RBC Urine WBC Ur Squamous Epith Cells Urine Bacteria Hyaline Casts Granular Casts Urine Opiates Screen Ur Buprenorphine Scrn Ur Oxycodone Screen Urine Methadone Screen Urine Fentanyl Screen Ur Barbiturates Screen Ur Phencyclidine Scrn Ur Amphetamines Screen U Benzodiazepines Scrn Urine Cocaine Screen U Marijuana (THC) Screen COVID-19 (STEPHY) COVID-19 Clin Com Influenza Type A (CARITO) Influenza Type B (CARITO) Influenza A & B Note Imaging Radiologist's Impressions: Impressions Abdomen/Pelvis CT 02/12/25 14:23 IMPRESSION: Small bilateral nonobstructing renal stones. No hydronephrosis, ureteral dilatation or ureteral stone. 9 mm low-attenuation lesion in the mid right kidney. This is difficult to accurately characterize but similar in size to previous exams and may represent a cyst. Candelaria catheter in the bladder. The bladder is empty. Question low attenuation in the uncinate process of the head of the pancreas. Follow-up CT or MRI with IV contrast recommended. Fatty liver. Electronically signed by: Rosanna Kraus MD 02/12/2025 03:18 PM [facility] Assessment and Plan (1) Diabetes mellitus: Qualifiers: Diabetes mellitus complication detail: with unspecified neuropathy D iabetes mellitus complication status: with neurologic complications Diabetes mellitus long term care pharmacist insulin use: without group home use Diabetes mellitus type: t ype 2 Qualified Code(s): E11.40 - Type 2 diabetes mellitus with diabetic neuropathy, unspecified Status: Acute (2) Acute renal failure: Status: Acute (3) Acute hyperkalemia: Status: Acute (4) Metabolic acidosis: Status: Acute Plan Assessment: 65-year-old lady admitted with malaise to acute renal failure with profound metabolic acidosis and hyperkalemia. Plan: Neuro: No acute issues. Cardiac: No acute issues. Pulmonary: No acute issues. Renal: Acute renal failure with profound metabolic acidosis and hyperkalemia. Nephrology service appreciated. Continue bicarbonate drip. Non oliguric. Continue to monitor electrolytes. Endo: No acute issues. Underlying diabetes mellitus, continue sliding scale insulin. GI: No acute issues. ID: No acute issues Heme/Onc: No acute issues. Psych: No acute issues. Miscellaneous: No acute issues. Prophylaxis: Heparin Diet: NPO Critical care time spent: 45 minutes
--- OUTSIDE RECORDS SUMMARY | 2025-02-12 16:10 | XMS_ITS | Clinical Summary ---
Author Organization [facility] Address [address] [place] [id number] Phone Care Team Providers Care Technology Methodology Consultant Name Role Phone Michael Vogel MD Primary Care Provider [phone] Social History Tobacco Use Types Packs/Day Years [...] on file Insurance [facility] [place] [id number] [facility] Care Teams Technology Methodology Consultant Relationship Specialty Start Date End Date Michael Vogel MD [address] [place] [address] [place] [id number] PCP - General Internal Medicine 01/10/24 Additional Source Comments The information contained in this document represents components of the legal health record. It is not the complete legal health record.[facility]
--- OUTSIDE RECORDS SUMMARY | 2025-02-12 16:10 | XMS_ITS | Clinical Summary ---
Author Organization [facility] Address [address] [place] [address] Phone Care Team Providers Care Nib Assembler Name Role Phone Michael Vogel MD Primary Care Provider [phone] Allergies Active Allergy Reactions Criticality Noted Date [...] 4 WEEKS 3 Active ergocalciferol 1.25 MG (10044 UT) capsule TAKE 1 CAPSULE BYMOUTH ONCE [...] to complete this topic Insurance Care Teams Nib Assembler Relationship Specialty Start Date End Date Michael Vogel MD [address] [place] [address] PCP - General Internal Medicine 05/03/22
--- OUTSIDE RECORDS SUMMARY | 2025-02-12 16:11 | XMS_ITS | Clinical Summary ---
Author Organization [facility] Address [address] [place] [address] Care Team Providers Care Electronic Pagination System Operator Name Role Phone Michael Vogel MD Primary Care Provider [phone] Pamela Diego MD Unavailable [phone] Allergies No known active allergies Medications [...] (PLAVIX) 75 MG tabletIndicati ons:Atheroscle rosis 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 (HCC) [...] (LIDODERM) 5 % patchIndicatio ns:Atheroscler osis 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 (HCC) [...] tablet 10/08/19 25 2024 Discontinued nystatin (MYCOSTATIN) [id number] UNIT/ML suspensionIndi cations:Diabet es mellitus with peripheral circulatory disorder (HCC),Oral thrush Take 5 mL (500,000 Units total) by mouth 4 (four) times a day. 60 mL 11/12/19 25 2024 Discontinued(M ed List Clean-up/Old Med - No E-Cancel/No AVS) clopidogrel (PLAVIX) 75 MG tabletIndicati ons:Atheroscle rosis 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 (HCC) [...] of right lower extremity 01/26 Atherosclerosis of [place] ar teries of the extremities with ulceration 12/08/2024 Acute lower limb ischemia 10/01/2024 Assessment & Plan (10/06/2024 6:35 AM EDT): S/p right lower extremity angiogram with FAMILY NURSE atherectomy and plasty on 10/03/2024 Patient had noninvasive invasive vascular studies performed for new baseline after surgery Patient been followed by vascular surgeon as per vascular surgery recommendation Patient should continue on aspirin 81 mg and high intensity statin Patient can follow-up with her in the [place] office in 3 to 4 weeks Discharge information placed in the discharge section of the patient's chart as per vascular surgeon no other acute vascular interventions warranted at this time Patient is on IV antibiotics Follow-up ID recommendation Assessment & Plan (10/04/2024 11:31 AM EDT): Status post right lower extremity angiogram with FAMILY NURSE atherectomy and plasty on 10/03/2024 Patient been [...] Patient underwent right lower extremity angiogram with FAMILY NURSE atherectomy and plasty on 10/03/2024. - Vascular surgery followed throughout admission. Follow up in 3 weeks outpatient - Podiatry signed off. Follow up in 1 week outpatient. - ID followed throughout admission. Okay to stop ABX. - Continue ASA and statin Assessment & Plan (10/06/2024 6:35 AM EDT): S/p right lower extremity angiogram with FAMILY NURSE atherectomy and plasty on 10/03/2024 Patient had noninvasive invasive vascular studies performed for new baseline after surgery Patient been followed by vascular surgeon as per vascular surgery recommendation Patient should continue on aspirin 81 mg and high intensity statin Patient can follow-up with her in the [place] office in 3 to 4 weeks Discharge information placed in the discharge section of the patient's chart as per vascular surgeon no other acute vascular interventions warranted at this time Patient is on IV antibiotics Follow-up ID recommendation Assessment & Plan (10/04/2024 11:31 AM EDT): Status post right lower extremity angiogram with FAMILY NURSE atherectomy and plasty on 10/03/2024 Patient been [...] surgery, podiatry following. S/p RLE angiogram with FAMILY NURSE atherectomy and plasty on 10/03. Was on [...] 8:15 AM EST Office Visit [facility] [address] [phone] Floyd Rhodes, AFUA Diabetes mellitus with peripheral circulatory disorder (HCC) (Primary Dx); Ulcerated, foot, right, with fat layer exposed (HCC); Ulcer of great toe, right, limited to breakdown of skin (HCC); Gangrene of toe of right foot (HCC); Blister of right foot, initial encounter; Ingrowing nail, right great toe 02/03/2025 9:45 AM EST Ancillary Procedure [facility] [address] [phone] Desiree Lacey MD 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) 02/03/2025 9:30 AM EST Ancillary Procedure [facility] [address] [phone] Desiree Lacey MD 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) 02/03/2025 9:30 AM EST Office Visit [facility] [address] [phone] Desiree Lacey MD 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) (Primary Dx); Mixed hyperlipidemia 02/03/2025 8:15 AM EST Office Visit [facility] [address] [phone] Floyd Rhodes, HERMESM Diabetes mellitus with peripheral circulatory disorder (HCC) (Primary Dx); Ulcerated, foot, right, with fat layer exposed (HCC); Ulcer of great toe, right, limited to breakdown of skin (HCC) 01/28/2025 7:30 AM EST - 01/28/2025 10:30 AM EST Surgery [facility] [address] [place] [phone] Desiree Lacey MD ANGIOGRAM LEG 01/28/2025 7:30 AM EST Anesthesia Event [facility] [address] [place] [phone] Jameel Schmidt MD Gordon, Donald E, PA-C 01/26/2025 8:28 AM EST - 01/28/2025 4:16 PM EST Hospital Encounter [address] [phone] Mariela Salvador MD Glotzer, Owen S, MD Jain, Akhilesh K, MD Peripheral vascular disease of lower extremity (Primary Dx); 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); Stenosis of superficial femoral artery Discharge Disposition: Home with Health Care Services 01/20/2025 10:30 AM EST Office Visit [facility] [address] [phone] Angie Valenzuela, PROGRESS MAN 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) (Primary Dx) 01/20/2025 9:15 AM EST Ancillary Procedure [facility] [address] [phone] Kelvin Liu MD 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) 01/20/2025 9:00 AM EST Ancillary Procedure [facility] [address] [address] Kelvin Liu MD 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) 01/20/2025 8:15 AM EST Office Visit [facility] [address] [phone] Carmelo, Floyd, DPM Diabetes mellitus with peripheral circulatory disorder (HCC) (Primary Dx); Ulcerated, foot, right, with fat layer exposed (HCC); Ulcer of great toe, right, limited to breakdown of skin (HCC) 01/13/2025 8:15 AM EST Office Visit [facility] [address] [phone] Carmelo, Floyd, DPM Diabetes mellitus with peripheral circulatory disorder (HCC) (Primary Dx); Ulcerated, foot, right, with fat layer exposed (HCC); Right foot pain 01/06/2025 8:15 AM EST Office Visit [facility] [address] [phone] Carmelo, Floyd, DPM Diabetes mellitus with peripheral circulatory disorder (HCC) (Primary Dx); Ulcerated, foot, right, with fat layer exposed (HCC) 12/30/2024 9:00 AM EST Office Visit [facility] [address] [phone] Carmelo, Floyd, DPM Diabetes mellitus with peripheral circulatory disorder (HCC) (Primary Dx); Ulcerated, foot, right, with fat layer exposed (HCC); Callus of foot 12/23/2024 9:00 AM EDT Office Visit [facility] [address] [phone] Carmelo, Floyd, DPM Diabetes mellitus with peripheral circulatory disorder (HCC) (Primary Dx); Ulcerated, foot, right, with fat layer exposed (HCC); Ingrowing nail, right great toe 12/16/2024 8:00 AM EDT Office Visit [facility] [address] [phone] Carmelo, Floyd, DPM Diabetes mellitus with peripheral circulatory disorder (HCC) (Primary Dx); Ulcerated, foot, right, with fat layer exposed (HCC) 12/08/2024 3:00 PM EDT Office Visit [facility] [address] [phone] Desiree Lacey MD 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) (Primary Dx) 11/25/2024 8:45 AM EDT Office Visit [facility] [address] [phone] Carmelo, Floyd, DPM Diabetes mellitus with peripheral circulatory disorder (HCC) (Primary Dx); Ulcer of great toe, right, with fat layer exposed (HCC); Ulcerated, foot, right, with fat layer exposed (HCC) 11/18/2024 9:45 AM EDT Office Visit [facility] [address] [phone] Carmelo, Floyd, DPM Diabetes mellitus with peripheral [...] any time in the past 12 [facility], were you homeless or living in a assisted (including now)? No 01/27/2025 [facility] Utilities Answer Date Recorded [...] 8:15 AM EST Office Visit [facility] [address] [place] [phone] Floyd Rhodes, DPM [address] [facility] [address] [place] [address] 05/18/2025 8:00 AM EDT Ancillary Procedure [facility] [address] [phone] Pamela Diego MD [address] [address] 05/18/2025 8:30 AM EDT Ancillary Procedure [facility] [address] [place] [phone] Desiree Lacey MD [address] [place] [address] 05/18/2025 9:00 AM EDT Ancillary Procedure [facility] [address] [place] [phone] Desiree Lacey MD [address] [place] [address] 05/18/2025 9:00 AM EDT Office Visit [facility] [address] [place] [address] Desiree Lacey MD [address] [place], [place] [phone] Health Maintenance Due Date Last Done Comments [...] Routine 02/03/2025 10:07 AM EST 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) VAS ARTERIAL LEG SINGLE LEVEL PRESSURES-RIGHT Routine 02/03/2025 10:06 AM EST 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) POCT GLUCOSE, FINGERSTICK (CHARGE) Routine 01/28/2025 9:06 AM EST ENDOVASCULAR PROCEDURE Routine 01/28/2025 8:56 AM EST 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) FLUORO FOR VASCULAR SURGERY IN OR (AUTO NR) Routine 01/28/2025 8:52 AM EST NH REVSC OPN/PRQ FEM/POP W/STNT/ATHRC/ANGIOP SM VSL 01/28/2025 7:10 AM EST 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) [...] Routine 01/21/2025 10:01 AM EST 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) Preoperative examination COMPLETE BLOOD COUNT, WITH DIFFERENTIAL Routine 01/21/2025 10:01 AM EST 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 Department: [facility] Vascular Lab ([place]) Patient: [id number] (ISELA BUCKLEY) Patient Location: [facility] CPT Code: 54988 ICD-9: Referring Physician: DESIREE LACEY MD, RPVI [...] worsening RLE wound. Findings: Right PSV EDV UNDERGROUND FOREMAN 129 PFA Prox 75 SFA Prox 88 Popliteal Artery Prox 70 FAMILY NURSE Dist 80 28 Electronically Signed by: Kelvin Liu MD, RPVI on 2025-02-03 02:24:14 PM End of Report Procedure Note Kelvin Liu MD - 02/03/2025 Department: [facility] Vascular Lab ([place]) Patient: [id number] (ISELA BUCKLEY) Patient Location: [facility] CPT Code: 56188 ICD-9: Referring Physician: DESIREE LACEY MD, KATIE [...] worsening RLE wound. Findings: Right PSV EDV UNDERGROUND FOREMAN 129 PFA Prox 75 SFA Prox 88 Popliteal Artery Prox 70 FAMILY NURSE Dist 80 28 Electronically Signed by: Kelvin Liu MD, KATIE on [id number]:24:14 PM End of Report us Desiree Lacey MD VASCULAR LAB ORDERABLES Final Result * VAS ARTERIAL LEG SINGLE LEVEL PRESSURES-RIGHT (02/03/2025 10:06 AM EST) Only the most recent of2 resultswithin the time period is included. Anatomical Region Laterality Modality Ultrasound 02/03/2025 9:30 AM EST Narrative 02/03/2025 2:25 PM EST Table formatting from the original result was not included. Department: [facility] Vascular Lab ([place]) Patient: [id number] (ISELA BUCKLEY) Patient Location: [facility] CPT Code: 92557 ICD-9: Referring Physician: DESIREE LACEY MD, KATIE [...] Note Kelvin Liu MD - 02/03/2025 Department: [facility] Vascular Lab ([place]) Patient: [id number] (ISELA BUCKLEY) Patient Location: [facility] CPT Code: 24308 ICD-9: Referring Physician: DESIREE LACEY MD, RPVI [...] Signed by: Kelvin Liu MD, RPVI on [id number]:25:22 PM End of Report us Desiree Lacey [...] IN OR (01/28/2025 8:52 AM EST) Narrative [place] - 01/28/2025 8:54 AM EST This study has been auto finalized please see the Notes or Media Clinical tabs in Chart Review for final documentation. Desiree Lacey MD IMG FLUOROSCOPY ORDERABLES Fi nal Result Performing Organization Address City/[facility]/ZIP Co de Phone Number [place] [phone] * Heparin Assay (Anti Xa) (01/28/2025 4:26 AM EST) Only the most recent of7 resultswithin the time period is included. Anti Xa 0.65 IU/mL 01/28/2025 5:01 AM EST [facility] Comment: (NOTE) Heparin Thromboembolic/Standard/Full Dose Protocol: Therapeutic [...] Anticoagulant IV HEPARIN, UNFRACTIONATED 01/27/2025 11:05 PM [facility] Blood Blood specimen / Unknown 01/28/2025 4:26 AM EST 01/28/2025 4:36 AM EST us Desiree Lacey MD LAB BLOOD ORDERABLES [place] [address], [place] [address] * (ABNORMAL) Complete Blood Count WITHOUT Differential - Early AM (01/28/2025 4:26 AM EST) Only the most recent of2 resultswithin the time period is included. White Blood Cell Count 11.2(H) 4.0 - 11.0 Thou/uL 01/28/2025 4:54 AM [facility] Platelet Count 322 150 - 450 Thou/uL 01/28/2025 4:54 AM [facility] Hemoglobin 11.7 11.7 - 15.7 g/dL 01/28/2025 4:54 AM [facility] Hematocrit 37.2 35.0 - 47.0 % 01/28/2025 4:54 AM [facility] Red Blood Cell Count 4.18 4.00 - 5.40 Mil/uL 01/28/2025 4:54 AM [facility] MCV 89 80 - 100 fL 01/28/2025 4:54 AM [facility] MCH 28.0 27.0 - 31.0 pg 01/28/2025 4:54 AM [facility] MCHC 31.5 30.0 - 36.0 g/dL 01/28/2025 4:54 AM [facility] RDW 16.8(H) 11.5 - 14.5 % 01/28/2025 4:54 AM [facility] MPV 10.3 7.5 - 12.5 fL 01/28/2025 4:54 AM [facility] Blood Blood specimen / Unknown 01/28/2025 4:26 AM EST 01/28/2025 4:36 AM EST Faith Collins PA-C LAB BLOOD ORDERABLES Final Res ult Performing Organization Address City/[facility] [place] [address], [place] [address] * Magnesium (01/28/2025 4:26 AM EST) Only the most recent of2 resultswithin the time period is included. Magnesium 2.0 1.6 - 2.7 mg/dL 01/28/2025 5:25 AM [facility] Blood Blood specimen / Unknown 01/28/2025 4:26 AM EST 01/28/2025 4:36 AM EST Faith Collins PA-C LAB BLOOD ORDERABLES Final Res ult Performing Organization Address [facility] [place] [address], [place] [address] * (ABNORMAL) Basic Metabolic Panel (01/28/2025 4:26 AM EST) Only the most recent of3 resultswithin the time period is included. Glucose 97 65 - 99 mg/dL 01/28/2025 5:25 AM [facility] Comment:Fasting: <100 mg/dL, Non-Fasting: <200 mg/dL (ADA 2004) Blood Urea Nitrogen (BUN) 11 8 - 21 mg/dL 01/28/2025 5:25 AM [facility] Creatinine 1.11(H) 0.40 - 1.10 mg/dL 01/28/2025 5:25 AM [facility] eGFR 55(L) >59 01/28/2025 5:25 AM EST [facility] Comment:CKD-EPI (2020) in mL /min/1.73 sq meters. Sodium 136 136 - 145 mmol/L 01/28/2025 5:25 AM [facility] Potassium 4.0 3.4 - 5.3 mmol/L 01/28/2025 5:25 AM [facility] Chloride 103 98 - 107 mmol/L 01/28/2025 5:25 AM [facility] CO2 23 22 - 33 mmol/L 01/28/2025 5:25 AM [facility] Anion Gap 10 7 - 17 01/28/2025 5:25 AM [facility] Calcium 8.7 8.7 - 10.5 mg/dL 01/28/2025 5:25 AM [facility] BUN/Creatinine Ratio 10 10.0 - 25.0 Ratio 01/28/2025 5:25 AM [facility] Blood Blood specimen / Unknown 01/28/2025 4:26 AM EST 01/28/2025 4:36 AM EST Faith Collins PA-C LAB BLOOD ORDERABLES [place] [address], [place] [address] * CTA Abdomen/bilateral runoff w w/o contrast [...] COMPARISON: 10/03/2024 arteriogram TECHNIQUE: Initial noncontrast localizing armored cable machine operator images were obtained. Timing boluses at the [...] COMPARISON: 10/03/2024 arteriogram TECHNIQUE: Initial noncontrast localizing armored cable machine operator images were obtained. Timing boluses at the [...] is included. Ventricular rate 98 BPM EKG [facility] Atrial rate 98 BPM EKG [facility] P-R interval 130 ms EKG [facility] QRS duration 72 ms EKG [facility] Q-T interval 342 ms EKG [facility] QTC calculation (Bazett) 437 ms EKG [facility] P axis 24 degrees EKG [facility] R axis 8 degrees EKG [facility] T axis [facility] 01/26/2025 9:40 AM EST Narrative EKG [facility] - 01/26/2025 10:33 AM EST Normal sinus [...] Faith Collins PA-C ECG ORDERABLES Final Result [facility] * (ABNORMAL) Complete Blood Count, with Differential (01/26/2025 8:40 AM EST) Only the most recent of2 resultswithin the time period is included. White Blood Cell Count 15.7(H) 4.0 - 11.0 Thou/uL 01/26/2025 9:02 AM [facility] Platelet Count 408 150 - 450 Thou/uL 01/26/2025 9:02 AM [facility] Hemoglobin 13.7 11.7 - 15.7 g/dL 01/26/2025 9:02 AM [facility] Hematocrit 42.8 35.0 - 47.0 % 01/26/2025 9:02 AM [facility] Red Blood Cell Count 4.78 4.00 - 5.40 Mil/uL 01/26/2025 9:02 AM [facility] MCV 90 80 - 100 fL 01/26/2025 9:02 AM [facility] MCH 28.7 27.0 - 31.0 pg 01/26/2025 9:02 AM [facility] MCHC 32.0 30.0 - 36.0 g/dL 01/26/2025 9:02 AM [facility] RDW 17.2(H) 11.5 - 14.5 % 01/26/2025 9:02 AM [facility] MPV 10.7 7.5 - 12.5 fL 01/26/2025 9:02 AM [facility] Neutrophils Auto 80.2 % 01/27/20 9:02 AM [facility] Immature Granulocytes 1.1 % 01/26/2025 9:02 AM [facility] Lymphocytes Auto 8.4 % 01/27/20 9:02 AM [facility] Monocytes Auto 8.8 % 01/26/2025 9:02 AM [facility] Eosinophils Auto 0.8 % 01/27/20 9:02 AM [facility] Basophils Auto 0.7 % 01/26/2025 9:02 AM [facility] Abs Neutrophils Auto 12.56(H) 2.00 - 7.50 Thou/uL 01/26/2025 9:02 AM [facility] Abs Immature Granulocytes 0.18(H) 0.00 - 0.10 Thou/uL 01/26/2025 9:02 AM [facility] Abs Lymphocytes Auto 1.32(L) 1.50 - 4.50 Thou/uL 01/26/2025 9:02 AM [facility] Abs Monocytes Auto 1.38 0.20 - 1.50 Thou/uL 01/26/2025 9:02 AM [facility] Abs Eosinophils Auto 0.12 0.00 - 0.70 Thou/uL 01/26/2025 9:02 AM [facility] Abs Basophils Auto 0.11 0.00 - 0.20 Thou/uL 01/26/2025 9:02 AM [facility] Blood Blood specimen / Unknown 01/26/2025 8:40 AM EST 01/26/2025 8:54 AM EST Mariela Salvador MD LAB BLOOD ORDERABL ES Final Result Performing Organization Address City/State/[facility] [place] [address], [place] [address] * Partial Thromboplastin Time (PTT) (01/26/2025 8:40 AM EST) Anticoagulant IV HEPARIN, UNFRACTIONATED 01/26/2025 8:39 AM [facility] Partial Thromboplastin Time (PTT) 30 25 - 36 seconds 01/26/2025 9:10 AM [facility] Comment:Anti-Xa is the labor atory standard for heparin monitoring. Use of aPTT for unfractionated heparin in patients receiving DOACs may be performed at the clinician's discretion. Blood Blood specimen / Unknown 01/26/2025 8:40 AM EST 01/26/2025 8:54 AM EST Mariela Salvador MD LAB BLOOD ORDERABL ES Final Result Performing Organization Address [facility] [place] [address], [place] [address] * INR (01/26/2025 8:40 AM EST) [facility] Signature Anticoagulant CLOPIDOGREL (PLAVIX) 01/26/2025 8:37 AM [facility] Prothrombin Time (PT) 12.1 10.0 - 13.5 seconds 01/26/2025 9:10 AM [facility] INR 1.0 01/26/2025 9:10 AM [facility] Comment:INR Therapeutic Rang es: Standard dose anticoagulant 2.0 to 3.0, High dose anticoagulant 2.5-3.5. Blood Blood specimen / Unknown 01/26/2025 8:40 AM EST 01/26/2025 8:54 AM EST Mariela Salvador MD LAB BLOOD ORDERABL ES Final Result Performing Organization Address [facility] [place] [address], [place] [address] * (ABNORMAL) Lactate Level X 2 (01/26/2025 8:40 AM EST) Lactic Acid 2.4(H) 0.5 - 1.9 mmol/L 01/26/2025 9:17 AM [facility] Blood Blood specimen / Unknown 01/26/2025 8:40 AM EST 01/26/2025 8:53 AM EST us Faith Collins PA-C LAB BLOOD ORDERABLES [place] [address], [place] [address] * (ABNORMAL) Comprehensive Metabolic Panel (01/26/2025 8:40 AM EST) Glucose 129(H) 65 - 99 mg/dL 01/26/2025 9:17 AM [facility] Comment:Fasting: <100 mg/dL, Non-Fasting: <200 mg/dL (ADA 2004) Blood Urea Nitrogen (BUN) 13 8 - 21 mg/dL 01/26/2025 9:17 AM [facility] Creatinine 1.20(H) 0.40 - 1.10 mg/dL 01/26/2025 9:17 AM [facility] eGFR 50(L) >59 01/26/2025 9:17 AM [facility] Comment:CKD-EPI (2020) in mL /min/1.73 sq meters. Sodium 137 136 - 145 mmol/L 01/26/2025 9:17 AM [facility] Potassium 4.2 3.4 - 5.3 mmol/L 01/26/2025 9:17 AM [facility] Chloride 100 98 - 107 mmol/L 01/26/2025 9:17 AM [facility] CO2 24 22 - 33 mmol/L 01/26/2025 9:17 AM [facility] Calcium 9.9 8.7 - 10.5 mg/dL 01/26/2025 9:17 AM [facility] Alkaline Phosphatase 101 32 - 122 U/L 01/26/2025 9:17 AM [facility] Aspartate Aminotrans (AST) 17 10 - 50 U/L 01/26/2025 9:17 AM [facility] Alanine Aminotrans (ALT) 16 10 - 50 U/L 01/26/2025 9:17 AM [facility] Bilirubin, Total 0.8 0.2 - 1.0 mg/dL 01/26/2025 9:17 AM [facility] Protein, Total 7.8 6.3 - 8.3 g/dL 01/26/2025 9:17 AM [facility] Albumin 3.9 3.4 - 4.8 g/dL 01/26/2025 9:17 AM [facility] BUN/Creatinine Ratio 11 10.0 - 25.0 Ratio 01/26/2025 9:17 AM [facility] Globulin 3.9 1.5 - 3.9 g/dL 01/26/2025 9:17 AM [facility] Albumin/Globulin Ratio 1.0 1.0 - 3.0 Ratio 01/26/2025 9:17 AM [facility] Anion Gap 13 7 - 17 01/26/2025 9:17 AM [facility] Blood Blood specimen / Unknown 01/26/2025 8:40 AM EST 01/26/2025 8:54 AM EST Mariela Salvador MD LAB BLOOD ORDERABL [place] [address], [place], [place] [id number] * Type and Screen (01/26/2025 8:35 AM EST) ABO/Rh A POSITIVE 01/26/2025 10:15 AM [facility] Antibody Screen NEGATIVE 10:15 AM [facility] Specimen Expiration 01/29/2025 01/26/2025 10:15 AM [facility] Blood Blood specimen / Unknown 01/26/2025 8:35 AM EST 01/26/2025 9:15 AM EST Mariela Salvador MD BLOOD BANK TEST OR DERABLES Final Result [address] [address], [address] [address] * AEROBIC ANAEROBIC CULTURE W/GRAM STAIN (01/20/2025 [...] the original result was not included. Department: [facility] Vascular Lab ([place]) Patient: [id number] (ISELA BUCKLEY) Patient Location: [facility] CPT Code: 22579 ICD-9: Referring Physician: Kelvin Liu MD, RPVI [...] artery atherectomy and angioplasty. Findings: Right PSV UNDERGROUND FOREMAN 96 PFA Prox 65 SFA Prox 90 Popliteal Artery Mid 34 Electronically Signed by: Kelvin Liu MD, RPVI on 2025-01-20 10:40:49 AM End of Report Procedure Note Kelvin Liu MD - 01/20/2025 Department: [facility] Vascular Lab ([place]) Patient: [id number] (ISELA BUCKLEY) Patient Location: [facility] CPT Code: 47907 ICD-9: Referring Physician: Kelvin Liu MD, RPVI [...] tibial artery atherectomy andangioplasty. Findings: Right PSV UNDERGROUND FOREMAN 96 PFA Prox 65 SFA Prox 90 Popliteal Artery Mid 34 Electronically Signed by: Kelvin Liu MD, RPVI on :40:49 AM End of Report Kelvin Liu MD VASCULAR LAB ORDERABLES Tameka l Result * (ABNORMAL) Hemoglobin A1C with Estimated Average Glucose (10/01/2024 12:35 AM EDT) Hemoglobin A1C 7.0(H) <5.7 % 10/01/2024 2:51 AM EDT [facility] Comment: A1c% Interpretation 5.7 - 6.0 Increase risk of diabetes 6.1 - 6.4 Higher risk of diabetes > or = 6.5 Consistent with diabetes Diabetes Care, 33(Supp 1):S1-S61, 2010 Estimated Average Glucose 154 mg/dL 10/01/2024 2:51 AM T [facility] Blood specimen / Unknown 10/01/2024 12:35 AM EDT 10/01/2024 12:52 AM EDT Arnulfo Barrios MD LAB BLOOD ORDERABLES Final Re sult [address] [address], [address] [address] * LIPID PANEL (10/01/2024 12:35 AM EDT) Cholesterol, Total 173 <200 mg/dL 2024 3:24 AM EDT [facility] Triglycerides 104 <150 mg/dL 10/01/2024 3:24 AM EDT [facility] Cholesterol, HDL 52 >39 mg/dL 10/02/19 3:24 AM EDT [facility] Estimated LDL 100 <130 mg/dL 10/01/2024 3:24 AM EDT [facility] Comment: NCEP Guidelines: < 100 mg/dL Optimal 100 - 129 mg/dL Near Optimal/Above Optimal 130 - 159 mg/dL Borderline High 160 - 189 mg/dL High >/= 190 mg/dL Very High Cholesterol/HDL Ratio 3.3 0.0 - 5.0 Ratio 10/01/2024 3:24 AM EDT [facility] Comment: Relative Risk Ratio - Male Ratio - Female 0.5 3.4 3.3 1.0 5.0 4.4 2.0 9.6 7.1 3.0 23.4 11.0 10/01/2024 12:3 5 AM EDT 10/01/2024 12:52 AM EDT Arnulfo Barrios MD LAB BLOOD ORDERABLES Final Re sult [address] [address], [address] [address] from Last 3 Months or Most Recently Relevant to Health Maintenance Insurance MEDICARE PART A & [facility] [place] [employer] Advance Directives * Full Code (Latest Code Status on File) Date Activated Date Inactivated Comments 01/26/2025 9:16 AM * Full Code Date Activated Date Inactivated Comments 10/03/2024 9:42 AM 01/26/2025 8:21 AM * Full Code Date Activated Date Inactivated Comments 10/01/2024 2:32 AM 10/03/2024 9:42 AM Question Answer Comments Decision Thoroughly Discussed with: Patient Care Teams Electronic Pagination System Operator Relationship Specialty Start Date End Date Michael Vogel MD [address] [place] [address] [address] [place] [address] PCP - General Internal Medicine 10/01/24 Pamela Diego MD [address] [place] [id number] Surgery, Vascular 10/21/24
[2025-02-12 16:18] LABS: Anion Gap 32 (12-20); Blood Urea Nitrogen 78 mg/dL (9-16); Calcium 9.4 mg/dL (8.4-10.2); Carbon Dioxide 10 mmol/L (22-29); Chloride 109 mmol/L (96-108); Creatinine Clr Calc Pharmacy 5.5; Estimated Glomerular Filt Rate 4; Potassium 7.8 mmol/L (3.3-5.1); Sodium 143 mmol/L (135-145)
--- NOTE | 2025-02-12 16:18 | PC.NURSE ---
Several critical lab values taken from the lab K 7.8 CO10 creat 10.44. VBG 7.12 - DR. Sorensen made aware, no new orders per him.
--- NOTE | 2025-02-12 16:25 | PC.NURSE ---
Report given to Ariane in ICU. All questions answered, patient to be transferred when transport available.
[2025-02-12 16:33] LABS: Venous Blood Gas Refer to POC result
[2025-02-12 17:10] LABS: Glucose, Whole Blood 73 mg/dL (60-115)
[2025-02-12 18:00] LABS: Glucose, Whole Blood 70 mg/dL (60-115)
--- NOTE | 2025-02-12 18:04 | PHA.MEDREC ---
Addendum entered by Hayley Sherwood RPh 02/12/25 18:39: reviewed by [facility]. Original Note: Pharmacy Consult ? Medication Reconciliation Pharmacy has completed the medication reconciliation. Spoke with pt and she confirmed her medications. Pt confirmed she is not taking the Nystatin oral suspension at this time; pt doesn't feel she needs right now.
[2025-02-12] MEDS: Sodium Bicarbonate 8.4% 150 MEQ in Dextrose 5 % 850 ML 250 MEQ IV (19:10)
[2025-02-12 19:14] LABS: Glucose, Whole Blood 73 mg/dL (60-115)
--- NOTE | 2025-02-12 19:48 | PC.NURSE ---
Assumed care of patient at 1645 on arrival fro ED. Patient alert and oriented x4, denies pain, discomfort or nausea at current time, bicarb in D5 infusing as ordered, POC Q1 hour as ordered, MD aware and to continue to monitor, patient c/o intermittent tongue pain 9/10 that has come and gone since this AM, slight swelling stated and noted, MD aware and to continue to monitor.
--- NOTE | 2025-02-12 19:48 | HO.SKINPHOTO ---
Location: Right Great Toe Category: Diabetic Ulcer Stage: Length: Width: Depth: cm
[2025-02-12 20:05] LABS: Glucose, Whole Blood 84 mg/dL (60-115)
[2025-02-12 20:21] LABS: Venous Blood Gas Refer to POC result
--- NOTE | 2025-02-12 20:21 | PM.EVENT ---
Documented by User: Wiliam Moya NP 02/12/25 20:24 Event Note Date of Service: 02/12/25 Event Note: Patient reports tongue swelling/ discomfort in the last couple months. She is on lisinopril at home. Slight angioedema noted, patient protecting airway. Allergy to lisinopril added. Cont to check for worsening angioedema symptoms Time Spent With Patient Time: Total time managing care of this patient today ____ minutes. Documented by User: Juan Antonio Sorensen MD 02/13/25 10:32 Event Note Date of Service: 02/13/25
[2025-02-12 20:22] LABS: VBG HCO3 18 mmol/L (22-26); VBG O2 % Saturation 73.0 %
[2025-02-12 20:40] LABS: Albumin Level 2.8 g/dL (3.5-5.0); Anion Gap 31 (12-20); Blood Urea Nitrogen 71 mg/dL (9-16); Calcium 8.6 mg/dL (8.4-10.2); Carbon Dioxide 16 mmol/L (22-29); Chloride 103 mmol/L (96-108); Creatinine Clr Calc Pharmacy 6.0; Estimated Glomerular Filt Rate 4; Magnesium 1.8 mg/dL (1.6-2.6); Potassium 6.0 mmol/L (3.3-5.1); Sodium 144 mmol/L (135-145)
[2025-02-12] MEDS: Albumin Human 25 % 100 ML IV (21:04)
[2025-02-12 21:16] LABS: Glucose, Whole Blood 81 mg/dL (60-115)
[2025-02-12 22:07] LABS: Glucose, Whole Blood 105 mg/dL (60-115)
[2025-02-12] MEDS: 0.9 % Sodium Chloride Flush 3 ML SYRINGE IVFLUSH (23:50)
[2025-02-13] VITALS (20 sets, daily range): BP systolic 125–148; BP diastolic 69–79; PULSE 83–104; RESP 7–30; TEMP 36.3–37.3; O2SAT 94–99; BMI 27.3
[2025-02-13 00:05] LABS: Glucose, Whole Blood 101 mg/dL (60-115)
[2025-02-13] MEDS: Albumin Human 25 % 100 ML IV ×3 (02:12→15:03)
[2025-02-13] MEDS: Sodium Bicarbonate 8.4% 150 MEQ in Dextrose 5 % 850 ML 100 MEQ IV (02:13)
[2025-02-13 02:21] LABS: Glucose, Whole Blood 114 mg/dL (60-115)
[2025-02-13 04:16] LABS: Glucose, Whole Blood 122 mg/dL (60-115)
--- NOTE | 2025-02-13 05:16 | PC.NURSE ---
Addendum entered by Michele Smith RN 02/13/25 06:01: D5W/NAHCO3 DRIP HELD BY PROVIDER Original Note: CARE ASSUMED 7PM..AWAKE..ALERT...ORIENTED X4..RESPIRATIONS EASY..SAO2 96-98% ROOM AIR..D5W/NAHCO3 DRIP 250 CC/HR AT SHIFT CHANGE..S.TACH HR 110'S..BP STABLE...BICARB DRIP WEANED TO 100 CC/HR BY ICU ARCHERY INSTRUCTOR...REDDING DRAINING APPROX 40 CC/HR OVERNIGHT..SERIAL POC GLUCOSE LEVELS INITIALLY Q1H THEN CHANGED TO Q2H BY PROVIDER..DENIES DISCOMFORT...RIGHT FOOT GREAT TOE DRESSING AND TOP OF RIGHT FOOT DRESSING DRY/INTACT..FOOT WARM TO TOUCH..RIGHT POSTERIOR TIBIAL PULSE AND DORSALIS PULSE READILY AUDIBLE VIA DOPPLER..INITIALLY SINUS TACH HR 110'S IMPROVED TO NSR HR 96-100..NO ECTOPY...HS LABS REVIEWED BY PROVIDER..RESTFUL/CALM/CO-OPERATIVE OVERNIGHT
[2025-02-13 05:26] LABS: MANUAL DIFF FLAG NO
[2025-02-13 05:29] LABS: Hematocrit 28.1 % (37.0-47.0); Hemoglobin 9.2 g/dl (12.0-16.0); Imm Gran Abs Auto 0.08 X10*3/uL (0.00-0.03); Imm Gran Pct Auto 0.7 % (0.0-0.4); Lymphocytes Absolute Auto 1.0 X10*3/uL (1.2-4.9); Mean Corpuscular HGB Conc 32.7 g/dl (31.0-35.0); Mean Corpuscular Hemoglobin 28.5 pg (27.0-33.0); Mean Corpuscular Volume 87.0 fL (80.0-98.0); NRBC Abs Auto 0.000 X10*3/uL (0.0-0.012); NRBC Pct Auto 0.0 /100WBC (0.0-0.2); Platelet Count 244 X10*3/uL (160-400); Red Blood Count 3.23 X10*6/uL (4.20-5.50); White Blood Count 11.4 X10*3/uL (4.8-10.8)
[2025-02-13 05:30] LABS: VBG HCO3 32 mmol/L (22-26); VBG O2 % Saturation 98.0 %
[2025-02-13 05:56] LABS: Alanine Aminotransferase 49 U/L (0-31); Albumin Level 3.3 g/dL (3.5-5.0); Alkaline Phosphatase 63 U/L (39-117); Anion Gap 23 (12-20); Aspartate Amino Transferase 226 U/L (5-31); Blood Urea Nitrogen 69 mg/dL (9-16); Calcium 8.5 mg/dL (8.4-10.2); Carbon Dioxide 26 mmol/L (22-29); Chloride 98 mmol/L (96-108); Creatinine Clr Calc Pharmacy 6.1; Estimated Glomerular Filt Rate 4; Magnesium 2.0 mg/dL (1.6-2.6); Potassium 5.0 mmol/L (3.3-5.1); Sodium 142 mmol/L (135-145); Total Protein 5.8 g/dL (6.5-8.0)
[2025-02-13 06:17] LABS: Venous Blood Gas Refer to POC result
[2025-02-13 06:22] LABS: Glucose, Whole Blood 121 mg/dL (60-115)
[2025-02-13] MEDS: 0.9 % Sodium Chloride Flush 3 ML SYRINGE IVFLUSH ×3 (07:53→23:55)
[2025-02-13 08:00] LABS: Glucose, Whole Blood 122 mg/dL (60-115)
--- NOTE | 2025-02-13 10:34 | PM.CCPN ---
Subjective Subjective Date of Service: 02/13/25 Interval History: 65-year-old lady with underlying rheumatoid arthritis, diabetes with neuropathy, hypertension, coronary artery disease, peripheral artery disease with recent angiogram and recanalization of the right posterior and anterior tibial arteries admitted on 02/12/2025 the day history of malaise. On ER evaluation patient acute renal failure profound metabolic hyperkalemia, started on IV fluid resuscitation, making urine. CT abdomen with no evidence of hydronephrosis. No events overnight. Metabolic acidosis and hyperkalemia resolved. Now off bicarbonate drip. Critical Care Time (minutes): 0 Physical Exam Vital Signs: Vital Signs: Last Vital Signs Temp 98.9 F 02/13/25 08:00 Pulse 87 02/13/25 09:00 Resp 7 L 02/13/25 09:00 BP 137/75 02/13/25 09:00 Pulse Ox 96 02/13/25 09:00 O2 Del Method Room Air 02/13/25 09:00 BMI result Body Mass Index 27.3 Const: General: no acute distress, alert and awake Eyes: Sclerae: sclerae normal EOM: EOMs intact bilaterally Neck: Neck: Yes no lymphadenopathy, Yes trachea midline and Yes supple Resp: Effort & Inspection: normal respiratory effort and no respiratory distress Auscultation: clear to auscultation bilaterally Cardio: Rate: regular rate Rhythm: regular rhythm Heart sounds: no gallops, no murmurs and no rubs GI: Palpation (GI): Soft to palpation and Other GI palpation findings present ( Nontender) Auscultation: normal bowel sounds Extrem: General: Yes no pedal edema, No clubbing and No cyanosis Objective Data Labs 02/13/25 05:18 02/13/25 05:17 Labs: Laboratory Results - last 24 hr 02/12/25 02/12/25 02/12/25 11:23 11:32 11:35 WBC 18.6 H RBC 4.31 Hgb 12.4 Hct 40.5 MCV 94.0 MCH 28.8 MCHC 30.6 L RDW 19.5 H Plt Count 438 H MPV 9.9 Immature Gran % (Auto) 1.3 H Neut % (Auto) 84.9 H Lymph % (Auto) 7.5 L [place] % (Auto) 5.3 Eos % (Auto) 0.2 Baso % (Auto) 0.8 Lymph # (Auto) 1.4 [place] # (Auto) 1.0 Eos # (Auto) 0.0 Baso # (Auto) 0.1 Abs Immat Gran (auto) 0.25 H Absolute Neuts (auto) 15.9 H Absolute Nucleated RBC 0.000 Nucleated RBC % (auto) 0.0 Hold Purple Top SEE NOTE PT 14.7 H D INR 1.2 H VBG pH VBG pCO2 VBG pO2 VBG HCO3 VBG O2 Saturation VBG Base Excess Sodium 140 Potassium 7.9 H* D Chloride 108 Carbon Dioxide 9 L* D Anion Gap 31 H BUN 78 H Creatinine 10.42 H* Estim Creat Clear Calc 5.5 Estimated GFR 4 POC Glucose 53 L* Random Glucose 59 L* Calcium 10.0 Phosphorus Magnesium 2.3 Total Bilirubin 0.4 AST 245 H ALT 64 H Alkaline Phosphatase 102 NT-Pro-B Natriuret Pep 5455.8 H Total Protein 8.1 H Albumin 3.6 Beta-Hydroxybutyrate Urine Color Urine Appearance Urine pH Ur Specific [place] Urine Protein Urine Glucose (UA) Urine Ketones Urine Blood Urine Nitrite Ur Leukocyte Esterase Urine RBC Urine WBC Ur Squamous Epith Cells Urine Bacteria Hyaline Casts Granular Casts Urine Opiates Screen Ur Buprenorphine Scrn Ur Oxycodone Screen Urine Methadone Screen Urine Fentanyl Screen Ur Barbiturates Screen Ur Phencyclidine Scrn Ur Amphetamines Screen U Benzodiazepines Scrn Urine Cocaine Screen U Marijuana (THC) Screen COVID-19 (STEPHY) Negative COVID-19 Clin Com See Note Influenza Type A (CARITO) Negative Influenza Type B (CARITO) Negative Influenza A & B Note See Note 02/12/25 02/12/25 02/12/25 11:41 12:32 12:54 WBC RBC Hgb Hct MCV MCH MCHC RDW Plt Count MPV Immature Gran % (Auto) Neut % (Auto) Lymph % (Auto) [place] % (Auto) Eos % (Auto) Baso % (Auto) Lymph # (Auto) [place] # (Auto) Eos # (Auto) Baso # (Auto) Abs Immat Gran (auto) Absolute Neuts (auto) Absolute Nucleated RBC Nucleated RBC % (auto) Hold Purple Top PT INR VBG pH VBG pCO2 VBG pO2 VBG HCO3 VBG O2 Saturation VBG Base Excess Sodium Potassium Chloride Carbon Dioxide Anion Gap BUN Creatinine Estim Creat Clear Calc Estimated GFR POC Glucose 53 L* 45 L* Random Glucose Calcium Phosphorus Magnesium Total Bilirubin AST ALT Alkaline Phosphatase NT-Pro-B Natriuret Pep Total Protein Albumin Beta-Hydroxybutyrate 6.22 H Urine Color Urine Appearance Urine pH Ur Specific [place] Urine Protein Urine Glucose (UA) Urine Ketones Urine Blood Urine Nitrite Ur Leukocyte Esterase Urine RBC Urine WBC Ur Squamous Epith Cells Urine Bacteria Hyaline Casts Granular Casts Urine Opiates Screen Ur Buprenorphine Scrn Ur Oxycodone Screen Urine Methadone Screen Urine Fentanyl Screen Ur Barbiturates Screen Ur Phencyclidine Scrn Ur Amphetamines Screen U Benzodiazepines Scrn Urine Cocaine Screen U Marijuana (THC) Screen COVID-19 (STEPHY) COVID-19 Clin Com Influenza Type A (CARITO) Influenza Type B (CARITO) Influenza A & B Note 02/12/25 02/12/25 02/12/25 12:59 13:30 13:35 WBC RBC Hgb Hct MCV MCH MCHC RDW Plt Count MPV Immature Gran % (Auto) Neut % (Auto) Lymph % (Auto) [place] % (Auto) Eos % (Auto) Baso % (Auto) Lymph # (Auto) [place] # (Auto) Eos # (Auto) Baso # (Auto) Abs Immat Gran (auto) Absolute Neuts (auto) Absolute Nucleated RBC Nucleated RBC % (auto) Hold Purple Top PT INR VBG pH 7.19 L* VBG pCO2 18 VBG pO2 208 VBG HCO3 7 L VBG O2 Saturation 99.0 VBG Base Excess -18.6 Sodium Potassium Chloride Carbon Dioxide Anion Gap BUN Creatinine Estim Creat Clear Calc Estimated GFR POC Glucose 115 Random Glucose Calcium Phosphorus Magnesium Total Bilirubin AST ALT Alkaline Phosphatase NT-Pro-B Natriuret Pep Total Protein Albumin Beta-Hydroxybutyrate Urine Color Yellow Urine Appearance Cloudy Urine pH 5.5 Ur Specific [place] 1.015 Urine Protein 100 (2+) H Urine Glucose (UA) 100 H Urine Ketones 15 Urine Blood Large (3+) H Urine Nitrite Negative Ur Leukocyte Esterase Negative Urine RBC 3-5 H Urine WBC 0-5 Ur Squamous Epith Cells 3-5 Urine Bacteria None Seen Hyaline Casts 6-10 Granular Casts Present Urine Opiates Screen Not Detected Ur Buprenorphine Scrn Not Detected Ur Oxycodone Screen Not Detected Urine Methadone Screen Not Detected Urine Fentanyl Screen Not Detected Ur Barbiturates Screen Not Detected Ur Phencyclidine Scrn Not Detected Ur Amphetamines Screen Not Detected U Benzodiazepines Scrn Not Detected Urine Cocaine Screen Not Detected U Marijuana (THC) Screen Not Detected COVID-19 (STEPHY) COVID-19 Clin Com Influenza Type A (CARITO) Influenza Type B (CARITO) Influenza A & B Note 02/12/25 02/12/25 02/12/25 14:42 15:34 15:39 WBC RBC Hgb Hct MCV MCH MCHC RDW Plt Count MPV Immature Gran % (Auto) Neut % (Auto) Lymph % (Auto) [place] % (Auto) Eos % (Auto) Baso % (Auto) Lymph # (Auto) [place] # (Auto) Eos # (Auto) Baso # (Auto) Abs Immat Gran (auto) Absolute Neuts (auto) Absolute Nucleated RBC Nucleated RBC % (auto) Hold Purple Top PT INR VBG pH 7.12 L* VBG pCO2 27 VBG pO2 67 VBG HCO3 9 L VBG O2 Saturation 86.0 VBG Base Excess -18.2 Sodium 143 Potassium 7.8 H* Chloride 109 H Carbon Dioxide 10 L* Anion Gap 32 H BUN 78 H Creatinine 10.44 H* Estim Creat Clear Calc 5.5 Estimated GFR 4 POC Glucose 84 Random Glucose 89 Calcium 9.4 Phosphorus Magnesium Total Bilirubin AST ALT Alkaline Phosphatase NT-Pro-B Natriuret Pep Total Protein Albumin Beta-Hydroxybutyrate Urine Color Urine Appearance Urine pH Ur Specific [place] Urine Protein Urine Glucose (UA) Urine Ketones Urine Blood Urine Nitrite Ur Leukocyte Esterase Urine RBC Urine WBC Ur Squamous Epith Cells Urine Bacteria Hyaline Casts Granular Casts Urine Opiates Screen Ur Buprenorphine Scrn Ur Oxycodone Screen Urine Methadone Screen Urine Fentanyl Screen Ur Barbiturates Screen Ur Phencyclidine Scrn Ur Amphetamines Screen U Benzodiazepines Scrn Urine Cocaine Screen U Marijuana (THC) Screen COVID-19 (STEPHY) COVID-19 Clin Com Influenza Type A (CARITO) Influenza Type B (CARITO) Influenza A & B Note 02/12/25 02/12/25 02/12/25 17:07 17:55 19:11 WBC RBC Hgb Hct MCV MCH MCHC RDW Plt Count MPV Immature Gran % (Auto) Neut % (Auto) Lymph % (Auto) [place] % (Auto) Eos % (Auto) Baso % (Auto) Lymph # (Auto) [place] # (Auto) Eos # (Auto) Baso # (Auto) Abs Immat Gran (auto) Absolute Neuts (auto) Absolute Nucleated RBC Nucleated RBC % (auto) Hold Purple Top PT INR VBG pH VBG pCO2 VBG pO2 VBG HCO3 VBG O2 Saturation VBG Base Excess Sodium Potassium Chloride Carbon Dioxide Anion Gap BUN Creatinine Estim Creat Clear Calc Estimated GFR POC Glucose 73 70 73 Random Glucose Calcium Phosphorus Magnesium Total Bilirubin AST ALT Alkaline Phosphatase NT-Pro-B Natriuret Pep Total Protein Albumin Beta-Hydroxybutyrate Urine Color Urine Appearance Urine pH Ur Specific [place] Urine Protein Urine Glucose (UA) Urine Ketones Urine Blood Urine Nitrite Ur Leukocyte Esterase Urine RBC Urine WBC Ur Squamous Epith Cells Urine Bacteria Hyaline Casts Granular Casts Urine Opiates Screen Ur Buprenorphine Scrn Ur Oxycodone Screen Urine Methadone Screen Urine Fentanyl Screen Ur Barbiturates Screen Ur Phencyclidine Scrn Ur Amphetamines Screen U Benzodiazepines Scrn Urine Cocaine Screen U Marijuana (THC) Screen COVID-19 (STEPHY) COVID-19 Clin Com Influenza Type A (CARITO) Influenza Type B (CARITO) Influenza A & B Note 02/12/25 02/12/25 02/12/25 20:03 20:11 20:18 WBC RBC Hgb Hct MCV MCH MCHC RDW Plt Count MPV Immature Gran % (Auto) Neut % (Auto) Lymph % (Auto) [place] % (Auto) Eos % (Auto) Baso % (Auto) Lymph # (Auto) [place] # (Auto) Eos # (Auto) Baso # (Auto) Abs Immat Gran (auto) Absolute Neuts (auto) Absolute Nucleated RBC Nucleated RBC % (auto) Hold Purple Top PT INR VBG pH 7.37 VBG pCO2 30 VBG pO2 46 VBG HCO3 18 L VBG O2 Saturation 73.0 VBG Base Excess -5.8 Sodium 144 Potassium 6.0 H* D Chloride 103 Carbon Dioxide 16 L Anion Gap 31 H BUN 71 H Creatinine 9.66 H* Estim Creat Clear Calc 6.0 Estimated GFR 4 POC Glucose 84 Random Glucose 83 Calcium 8.6 D Phosphorus 5.1 H Magnesium 1.8 Total Bilirubin AST ALT Alkaline Phosphatase NT-Pro-B Natriuret Pep Total Protein Albumin 2.8 L Beta-Hydroxybutyrate Urine Color Urine Appearance Urine pH Ur Specific [place] Urine Protein Urine Glucose (UA) Urine Ketones Urine Blood Urine Nitrite Ur Leukocyte Esterase Urine RBC Urine WBC Ur Squamous Epith Cells Urine Bacteria Hyaline Casts Granular Casts Urine Opiates Screen Ur Buprenorphine Scrn Ur Oxycodone Screen Urine Methadone Screen Urine Fentanyl Screen Ur Barbiturates Screen Ur Phencyclidine Scrn Ur Amphetamines Screen U Benzodiazepines Scrn Urine Cocaine Screen U Marijuana (THC) Screen COVID-19 (STEPHY) COVID-19 Clin Com Influenza Type A (CARITO) Influenza Type B (CARITO) Influenza A & B Note 02/12/25 02/12/25 02/12/25 21:13 22:04 23:58 WBC RBC Hgb Hct MCV MCH MCHC RDW Plt Count MPV Immature Gran % (Auto) Neut % (Auto) Lymph % (Auto) [place] % (Auto) Eos % (Auto) Baso % (Auto) Lymph # (Auto) [place] # (Auto) Eos # (Auto) Baso # (Auto) Abs Immat Gran (auto) Absolute Neuts (auto) Absolute Nucleated RBC Nucleated RBC % (auto) Hold Purple Top PT INR VBG pH VBG pCO2 VBG pO2 VBG HCO3 VBG O2 Saturation VBG Base Excess Sodium Potassium Chloride Carbon Dioxide Anion Gap BUN Creatinine Estim Creat Clear Calc Estimated GFR POC Glucose 81 105 101 Random Glucose Calcium Phosphorus Magnesium Total Bilirubin AST ALT Alkaline Phosphatase NT-Pro-B Natriuret Pep Total Protein Albumin Beta-Hydroxybutyrate Urine Color Urine Appearance Urine pH Ur Specific [place] Urine Protein Urine Glucose (UA) Urine Ketones Urine Blood Urine Nitrite Ur Leukocyte Esterase Urine RBC Urine WBC Ur Squamous Epith Cells Urine Bacteria Hyaline Casts Granular Casts Urine Opiates Screen Ur Buprenorphine Scrn Ur Oxycodone Screen Urine Methadone Screen Urine Fentanyl Screen Ur Barbiturates Screen Ur Phencyclidine Scrn Ur Amphetamines Screen U Benzodiazepines Scrn Urine Cocaine Screen U Marijuana (THC) Screen COVID-19 (STEPHY) COVID-19 Clin Com Influenza Type A (CARITO) Influenza Type B (CARITO) Influenza A & B Note 02/13/25 02/13/25 02/13/25 02:17 04:11 05:17 WBC RBC Hgb Hct MCV MCH MCHC RDW Plt Count MPV Immature Gran % (Auto) Neut % (Auto) Lymph % (Auto) [place] % (Auto) Eos % (Auto) Baso % (Auto) Lymph # (Auto) [place] # (Auto) Eos # (Auto) Baso # (Auto) Abs Immat Gran (auto) Absolute Neuts (auto) Absolute Nucleated RBC Nucleated RBC % (auto) Hold Purple Top PT INR VBG pH VBG pCO2 VBG pO2 VBG HCO3 VBG O2 Saturation VBG Base Excess Sodium 142 Potassium 5.0 Chloride 98 Carbon Dioxide 26 Anion Gap 23 H BUN 69 H Creatinine 9.55 H* Estim Creat Clear Calc 6.1 Estimated GFR 4 POC Glucose 114 122 H Random Glucose 127 H Calcium 8.5 Phosphorus 4.3 Magnesium 2.0 Total Bilirubin 0.5 AST 226 H ALT 49 H Alkaline Phosphatase 63 NT-Pro-B Natriuret Pep Total Protein 5.8 L Albumin 3.3 L Beta-Hydroxybutyrate Urine Color Urine Appearance Urine pH Ur Specific [place] Urine Protein Urine Glucose (UA) Urine Ketones Urine Blood Urine Nitrite Ur Leukocyte Esterase Urine RBC Urine WBC Ur Squamous Epith Cells Urine Bacteria Hyaline Casts Granular Casts Urine Opiates Screen Ur Buprenorphine Scrn Ur Oxycodone Screen Urine Methadone Screen Urine Fentanyl Screen Ur Barbiturates Screen Ur Phencyclidine Scrn Ur Amphetamines Screen U Benzodiazepines Scrn Urine Cocaine Screen U Marijuana (THC) Screen COVID-19 (STEPHY) COVID-19 Clin Com Influenza Type A (CARITO) Influenza Type B (CARITO) Influenza A & B Note 02/13/25 02/13/25 02/13/25 05:18 05:25 06:17 WBC 11.4 H RBC 3.23 L D Hgb 9.2 L D Hct 28.1 L D MCV 87.0 D MCH 28.5 MCHC 32.7 RDW 18.6 H Plt Count 244 D MPV 9.6 Immature Gran % (Auto) 0.7 H Neut % (Auto) 81.8 H Lymph % (Auto) 8.5 L [place] % (Auto) 7.7 Eos % (Auto) 0.9 Baso % (Auto) 0.4 Lymph # (Auto) 1.0 L [place] # (Auto) 0.9 Eos # (Auto) 0.1 Baso # (Auto) 0.1 Abs Immat Gran (auto) 0.08 H Absolute Neuts (auto) 9.3 H Absolute Nucleated RBC 0.000 Nucleated RBC % (auto) 0.0 Hold Purple Top PT INR VBG pH 7.61 H* VBG pCO2 32 VBG pO2 80 VBG HCO3 32 H VBG O2 Saturation 98.0 VBG Base Excess 10.9 Sodium Potassium Chloride Carbon Dioxide Anion Gap BUN Creatinine Estim Creat Clear Calc Estimated GFR POC Glucose 121 H Random Glucose Calcium Phosphorus Magnesium Total Bilirubin AST ALT Alkaline Phosphatase NT-Pro-B Natriuret Pep Total Protein Albumin Beta-Hydroxybutyrate Urine Color Urine Appearance Urine pH Ur Specific [place] Urine Protein Urine Glucose (UA) Urine Ketones Urine Blood Urine Nitrite Ur Leukocyte Esterase Urine RBC Urine WBC Ur Squamous Epith Cells Urine Bacteria Hyaline Casts Granular Casts Urine Opiates Screen Ur Buprenorphine Scrn Ur Oxycodone Screen Urine Methadone Screen Urine Fentanyl Screen Ur Barbiturates Screen Ur Phencyclidine Scrn Ur Amphetamines Screen U Benzodiazepines Scrn Urine Cocaine Screen U Marijuana (THC) Screen COVID-19 (STEPHY) COVID-19 Clin Com Influenza Type A (CARITO) Influenza Type B (CARITO) Influenza A & B Note 02/13/25 07:52 WBC RBC Hgb Hct MCV MCH MCHC RDW Plt Count MPV Immature Gran % (Auto) Neut % (Auto) Lymph % (Auto) [place] % (Auto) Eos % (Auto) Baso % (Auto) Lymph # (Auto) [place] # (Auto) Eos # (Auto) Baso # (Auto) Abs Immat Gran (auto) Absolute Neuts (auto) Absolute Nucleated RBC Nucleated RBC % (auto) Hold Purple Top PT INR VBG pH VBG pCO2 VBG pO2 VBG HCO3 VBG O2 Saturation VBG Base Excess Sodium Potassium Chloride Carbon Dioxide Anion Gap BUN Creatinine Estim Creat Clear Calc Estimated GFR POC Glucose 122 H Random Glucose Calcium Phosphorus Magnesium Total Bilirubin AST ALT Alkaline Phosphatase NT-Pro-B Natriuret Pep Total Protein Albumin Beta-Hydroxybutyrate Urine Color Urine Appearance Urine pH Ur Specific [place] Urine Protein Urine Glucose (UA) Urine Ketones Urine Blood Urine Nitrite Ur Leukocyte Esterase Urine RBC Urine WBC Ur Squamous Epith Cells Urine Bacteria Hyaline Casts Granular Casts Urine Opiates Screen Ur Buprenorphine Scrn Ur Oxycodone Screen Urine Methadone Screen Urine Fentanyl Screen Ur Barbiturates Screen Ur Phencyclidine Scrn Ur Amphetamines Screen U Benzodiazepines Scrn Urine Cocaine Screen U Marijuana (THC) Screen COVID-19 (STEPHY) COVID-19 Clin Com Influenza Type A (CARITO) Influenza Type B (CARITO) Influenza A & B Note Progress Note: A&P Assessment and plan (1) Essential hypertension: Status: Acute (2) PAD (peripheral artery disease): Status: Acute (3) Diabetes mellitus: Status: Acute (4) Acute renal failure: Status: Acute (5) Rheumatoid arthritis: Status: Acute (6) Acute hyperkalemia: Status: Acute (7) Metabolic acidosis: Status: Acute Plan Assessment: 65-year-old lady admitted with malaise to acute renal failure with profound metabolic acidosis and hyperkalemia. Plan: Neuro: No acute issues. Cardiac: No acute issues. Pulmonary: No acute issues. Renal: Acute renal failure with profound metabolic acidosis and hyperkalemia, improving. Off bicarbonate drip. Nephrology evaluation is pending. Continue to monitor electrolytes. Endo: No acute issues. Underlying diabetes mellitus, continue sliding scale insulin. GI: No acute issues. ID: No acute issues Heme/Onc: No acute issues. Psych: No acute issues. Miscellaneous: No acute issues. Prophylaxis: Heparin Diet: Low potassium Quality Stroke Does the patient have a stroke diagnosis?: No VTE Prior VTE?: No VTE Risk Level:: Medical - moderate - high VTE Device Contraindication: Treatment Not Indicated VTE Drug Contraindication: N/A - Med Ordered
[2025-02-13 10:43] LABS: Glucose, Whole Blood 121 mg/dL (60-115)
--- NOTE | 2025-02-13 10:57 | HO.WOUND ---
Wound Consult: Initial 65 yr old female admitted to [facility] on 02/12/25- See progress notes and H&P for detailed history. Wound consult placed for right foot. Patient agreeable to assessment and photo documentation. at bedside. Both gave history along with chart review. Patient followed by vascular and podiatry at [facility], with recent angio of right leg done. Weekly office visits with dr. katz, podiatry where they have been using mesalt, last visit appears to be 02/10/25. They feel wounds are improving, will continue current treatment with mesalt. Right foot/great toe Etiology: Diabetic foot wounds, vascular component noted - foot is warm and appears well perfused Wound Bed: moist pink/yellow to foot, pale pink with central moist area to right great toe Drainage / Odor: Edges: ? rolled- hyperpigmentation surroudning Vika wound: ? No Induration, Fluctuance or Warmth noted Pain: none Goals of Treatment: ? continue mesalt (sodium chloride impregnated gauze for use drawing fluid, bacteria and tissue into the dressing, out of the wound bed) Recommendations: 1. Turn and Reposition every 2 hours and as needed for patient comfort. Use pillows or wedges to support off loading positions. 2. Off Load all bony prominences with use of pillows and heel boots if needed. Apply Preventative foams where needed. 3. Use waffle cushion when up to chair, limit sitting times to 1-2 hours 3. Monitor for incontinence and moisture control, use barrier creams when needed for prevention and treatment. 4. Provide adequate and supplemental nutrition. 5. Order or Continue low air loss mattress. 6. When applicable maintain blood glucose levels per Providers order. Right foot and great toe: cleanse with saline, pat dry, cut mesalt to fit, cover with dry dressing (gauze and rolled gauze), change daily and PRN. Mesalt left at bedside, can also be found in wound care office. Re-consult wound care Nurse for wound deterioration or wound changes.
--- NOTE | 2025-02-13 10:58 | MHC.CM.PN ---
IMM DELIVERED. PT LIVES WITH SPOUSE AND USES A ROLLATOR FOR MOBILITY. NO SERVICES CURRENTLY. + HCP ON FILE AND VERIFIED. PCP DR. TRAVIS AT [facility]: P.T. WILL HAVE A P.T. EVAL TO DETERMINE NEEDS. PT WOULD LIKE TO GO HOME WITH [facility] IF POSSIBLE. FIRST CHOICE [facility]. REFERRAL SENT. PT'S SPOUSE WILL TRANSPORT. CM WILL CONTINUE TO FOLLOW FOR ANY CHANGE TO DC PLAN/NEEDS.
[2025-02-13 11:40] LABS: Glucose, Whole Blood 149 mg/dL (60-115)
[2025-02-13 14:19] LABS: Glucose, Whole Blood 118 mg/dL (60-115)
--- NOTE | 2025-02-13 15:13 | P.EN_ITS ---
Event Note Date of Service: 02/13/25 Event Note: This is a 65-year-old lady with underlying rheumatoid arthritis, diabetes with neuropathy, hypertension, coronary artery disease, peripheral artery disease with recent angiogram and recanalization of the right posterior and anterior tibial arteries admitted on 02/12/2025 the day history of malaise. On ER evaluation patient acute renal failure profound metabolic hyperkalemia, started on IV fluid resuscitation, making urine. CT abdomen with no evidence of hydro nephrosis. Metabolic acidosis and hyperkalemia resolved. Off bicarbonate drip. Downgraded to the medical floor 02/13. acute renal failure with severe metabolic acidosis and hyperkalemia due to ATN vs AIN ua negative for infection s/p bicarb drip in ICU acidosis and hyperkalemia resolved nephrology following trend BMP anemia drop in H/H suspected to be due to hemodilution from IVF resuscitation no evidence of bleeding noted DM hold metformin transaminitis imaging with fatty liver dz, but previous LFTs normal trend LFTs angioedema resolved thought to be due to lisinopril stop lisinopril on discharge low attenuation lesion of pancreas recommend outpatient CT or MRI with IV contrast h/p PAD asa, plavix have been on hold if H/H remains stable can likely resume Time Spent With Patient Time: Total time managing care of this patient today ____ minutes.
--- NOTE | 2025-02-13 16:01 | PM.CNNEP ---
History of Present Illness Reason for Consult Consult date: 02/13/25 Chief Complaint Chief complaint: hyperkalemia, acute renal failure History of Present Illness Narrative: 65-year-old lady with underlying rheumatoid arthritis, diabetes with neuropathy, hypertension, coronary artery disease, peripheral artery disease with recent angiogram and recanalization of the right posterior and anterior tibial arteries admitted on 02/12/2025 admitted with history of malaise. In ER she was found to have GABRIELLE with profound hyperkalemia. She was started on IV fluid resuscitation and admitted for further management. CT abdomen with no evidence of hydronephrosis. 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 Lumbar degenerative disc disease Mixed hyperlipidemia Venous insufficiency of both lower extremities Abnormal bruising Obesity (BMI 30-39.9) Anxiety Insomnia GERD (gastroesophageal reflux disease) Vitamin D deficiency Ureterolithiasis Neuropathy Varicose veins of bilateral lower extremities with pain Rheumatoid arthritis Cervical spondylosis with radiculopathy Asthma Iron deficiency anemia, unspecified Vitamin B12 deficiency Hyperlipidemia Hypertension, essential, benign Diabetes mellitus Family History Family History Father Chronic mental illness Mother Diabetes Hypertension Stroke Sister Heart disease Diabetes Surgical History Surgical History History of atherectomy Hx of lithotripsy History of surgery on left wrist History of surgery on right wrist History of arthroplasty of left ankle History of arthroplasty of right ankle S/P VANESSA-BSO (total abdominal hysterectomy and bilateral salpingo-oophorectomy) History of arthroplasty of right knee (~2008) Social History Social History Household Members: Spouse Housing: Apartment Do you presently have visiting nurse or other home services: No Alcohol intake: never Patient Tobacco Use Status: Former Tobacco user Years Smoked: quit 6 years ago Smoked in Last 30 Days: No e-Cigarette/Vaping Use: Never Used Second Hand Smoke Exposure: No Use of substances other than those prescribed or required for medical reasons: No Substance Use Type: Prescription Drugs Currently Displaying Signs/Symptoms of Drug Intoxication Withdrawal: No Have you been hit, kicked, punched, or otherwise hurt by someone within the past year? If so, by whom?: No Do you feel safe in your current relationship?: Yes Is there a partner from a previous relationship who is making you feel unsafe now?: No Are you made to feel afraid or neglected: No [employer] [facility] Practices: pentocostal Advance Directives: No Advance Directives Information Provided: Yes Do you have a plan to hurt others: No Plan Recently lost weight without trying: Yes How much weight loss: 2-13 pounds Eating poorly because of decreased appetite: Yes Nutrition screen score: 4 Nutrition Risks: Poor intake 0-25% >4 days Patient : No : No service: No Current occupational status: disabled Cognitive needs: No (cane) Hearing needs: No Vision needs: Yes (glasses) Meds Allergies Allergy/AdvReac Type Severity Reaction Status Date / Time lisinopril Allergy Intermediate Angioedema Verified 02/12/25 20:02 Active Medications: Current Medications Albuterol Sulfate (Albuterol Sulfate (0.083%) 2.5 Mg/3 Ml Vial.Neb) 2.5 mg INHALE Q4H PRN PRN Reason: Wheezing Albuterol Sulfate (Albuterol Sulfate 90 Mcg 8 Gm Inhaler) 2 puff INHALE Q6H PRN PRN Reason: Muscle Spasm Dextrose (Dextrose 50 % 25 Gm/50 Ml Syringe) 25 gm IVPUSH Q15M PRN; Protocol PRN Reason: per Hypoglycemia Standing Ord. Heparin Sodium (Porcine) (Heparin Sodium,Porcine 5,000 Unit/Ml Vial) 5,000 unit SUBCUT Q8H [facility] Last Admin: 02/13/25 15:03 Dose: 5,000 unit Insulin Human Lispro (Insulin Lispro 100 Unit/Ml 3 Ml Vial) 0 unit SUBCUT QIDACHS [facility]; Protocol Last Admin: 02/13/25 12:52 Dose: Not Given Omeprazole (Omeprazole 20 Mg Capsule.Dr) 20 mg PO DAILY@0630 [facility] Sodium Chloride (0.9 % Sodium Chloride Flush 3 Ml Syringe) 3 ml IVFLUSH QSHIFT [facility] Last Admin: 02/13/25 15:04 Dose: 3 ml Home Medications ?Medication ?Instructions ?Recorded ?Confirmed ?Last Taken ?Type albuterol sulfate 2.5 mg/3 mL 2.5 mg inhalation Q4H PRN Wheezing 02/12/25 02/12/25 Unknown History (0.083 %) solution for nebulization albuterol sulfate 90 mcg/actuation 2 puff inhalation Q6H PRN muscle 02/12/25 02/12/25 Unknown History aerosol inhaler (Ventolin HFA) spasm aspirin 81 mg tablet,delayed 81 mg PO DAILY 02/12/25 02/12/25 02/11/25 History release clopidogrel 75 mg tablet 75 mg PO DAILY 02/12/25 02/12/25 02/11/25 History gabapentin 300 mg capsule 300 mg PO BID 02/12/25 02/12/25 02/11/25 History lidocaine 5 % topical patch 1 patch topical DAILY PRN Pain 02/12/25 02/12/25 02/11/25 History omeprazole 20 mg capsule,delayed 20 mg PO DAILY@0630 02/12/25 02/12/25 02/11/25 History release oxycodone 30 mg tablet 30 mg PO Q12H PRN pain 02/12/25 02/12/25 Unknown History Physical Exam Vital Signs: Last Vital Signs Temp 98.9 F 02/13/25 14:00 Pulse 83 02/13/25 15:00 Resp 9 L 02/13/25 15:00 BP 137/72 02/13/25 15:00 Pulse Ox 98 02/13/25 15:00 O2 Del Method Room Air 02/13/25 15:00 BMI result Body Mass Index 27.3 Const General: comfortable and no acute distress Orientation/consciousness: patient oriented x3 HEENT Head: Yes normocephalic Mouth: Normal oral and palatal mucosa present Eyes EOM: EOMs intact bilaterally Neck Neck: Yes supple Resp Auscultation: clear to auscultation bilaterally Cardio Jugular venous distension: no JVD Rate: regular rate GI Palpation (GI): Soft to palpation Auscultation: normal bowel sounds General: Yes no CVA tenderness Back/Spine/Pelvis Back: no CVA tenderness Skin General skin exam: no rashes or lesions noted Neuro General: patient oriented x3 and moves all extremities Extrem General: Yes no pedal edema Results Lab Results 02/13/25 05:18 02/13/25 05:17 Lab results: Chemistry 02/12/25 02/12/2502/12/25 11:32 15:34 20:11 Sodium 140 143 144 Potassium 7.9 H* D 7.8 H* 6.0 H* D Carbon Dioxide 9 L* D 10 L* 16 L BUN 78 H 78 H 71 H Creatinine 10.42 H* 10.44 H* 9.66 H* Calcium 10.0 9.4 8.6 D Phosphorus 5.1 H 02/13/25 05:17 Sodium 142 Potassium 5.0 Carbon Dioxide 26 BUN 69 H Creatinine 9.55 H* Calcium 8.5 Phosphorus 4.3 Hematology 02/12/25 02/13/25 11:32 05:18 WBC 18.6 H 11.4 H Hgb 12.4 9.2 L D Plt Count 438 H 244 D Urinalysis 02/12/25 13:30 Urine Color Yellow Urine Appearance Cloudy Urine pH 5.5 Ur Specific [place] 1.015 Urine Protein 100 (2+) H Urine Glucose (UA) 100 H Urine Ketones 15 Urine Blood Large (3+) H Urine Nitrite Negative Ur Leukocyte Esterase Negative Urine RBC 3-5 H Urine WBC 0-5 Ur Squamous Epith Cells 3-5 Hyaline Casts 6-10 Assessment and Plan (1) Acute hyperkalemia: Status: Acute (2) Acute renal failure: Qualifiers: Acute renal failure type: with acute tubular necrosis Qualified Code(s): N17.0 - Acute kidney failure with tubular necrosis Status: Acute (3) Metabolic acidosis: Status: Acute Plan GABRIELLE with hyperkalemia and metabolic acidosis likely due to tubular injury Urine output good. Hyperkalemia resolved. Was given NaHCO3- D/Wil as acidosis got resolved No indication for renal replacement. C/W rest of current supportive care Procedures Date of Service Date of Service: 02/13/25
[2025-02-13 16:03] LABS: Glucose, Whole Blood 95 mg/dL (60-115)
--- NOTE | 2025-02-13 17:00 | PC.NURSE ---
Latet entry for 1699: Patient not requiring ICU level of care transferred to med/tele, report given to receiving Teagan ROMANO to remain in place at current time for accurate I+O's to continue to monitor GABRIELLE
[2025-02-13 20:31] LABS: Glucose, Whole Blood 105 mg/dL (60-115)
[2025-02-14 04:00] VITALS: BP 121/71; PULSE 98; RESP 20; TEMP 37.1; O2SAT 92
[2025-02-14 04:29] VITALS: BMI 27.6
[2025-02-14 07:17] LABS: MANUAL DIFF FLAG NO
[2025-02-14 07:20] LABS: Hematocrit 30.6 % (37.0-47.0); Hemoglobin 10.1 g/dl (12.0-16.0); Imm Gran Abs Auto 0.07 X10*3/uL (0.00-0.03); Imm Gran Pct Auto 0.7 % (0.0-0.4); Lymphocytes Absolute Auto 1.2 X10*3/uL (1.2-4.9); Mean Corpuscular HGB Conc 33.0 g/dl (31.0-35.0); Mean Corpuscular Hemoglobin 28.8 pg (27.0-33.0); Mean Corpuscular Volume 87.2 fL (80.0-98.0); NRBC Abs Auto 0.000 X10*3/uL (0.0-0.012); NRBC Pct Auto 0.0 /100WBC (0.0-0.2); Platelet Count 236 X10*3/uL (160-400); Red Blood Count 3.51 X10*6/uL (4.20-5.50); White Blood Count 10.0 X10*3/uL (4.8-10.8)
[2025-02-14 07:23] LABS: Venous Blood Gas Refer to POC result
[2025-02-14 07:24] LABS: VBG HCO3 37 mmol/L (22-26); VBG O2 % Saturation 95.0 %
[2025-02-14 07:33] LABS: Glucose, Whole Blood 103 mg/dL (60-115)
[2025-02-14 07:49] LABS: Albumin Level 3.6 g/dL (3.5-5.0); Anion Gap 20 (12-20); Blood Urea Nitrogen 76 mg/dL (9-16); Calcium 9.2 mg/dL (8.4-10.2); Carbon Dioxide 30 mmol/L (22-29); Chloride 99 mmol/L (96-108); Creatinine Clr Calc Pharmacy 5.2; Estimated Glomerular Filt Rate 3; Magnesium 2.1 mg/dL (1.6-2.6); Potassium 5.2 mmol/L (3.3-5.1); Sodium 144 mmol/L (135-145)
[2025-02-14 08:00] VITALS: BP 132/79; PULSE 100; RESP 18; TEMP 36.6; O2SAT 95
[2025-02-14] MEDS: 0.9 % Sodium Chloride Flush 3 ML SYRINGE IVFLUSH (08:43)
--- NOTE | 2025-02-14 10:03 | PC.NURSE ---
Resumed care at 0700am and pad underneath was wet with urine so 380 output is not accurate, [employer] is aware. Strict I and O's are important
[2025-02-14 11:25] LABS: Glucose, Whole Blood 125 mg/dL (60-115)
[2025-02-14 11:46] VITALS: BP 139/70; PULSE 97; RESP 18; TEMP 36.2; O2SAT 99
--- NOTE | 2025-02-14 12:29 | P.PNIM_ITS ---
Subjective Subjective Date of Service: 02/14/25 Review of Systems Follow up GABRIELLE feeling fine today creat noted to be worse no abd pain, nausea and vomiting Physical Exam 2 Exam: Exam: Appearing in no acute distress lung sounds are clear to auscultation heart regular rate rhythm, clear S1, S2 positive bowel sounds, abdomen is soft, nontender neuro patient is alert x3, no focal deficits Vital Signs: Vital Signs: Last Vital Signs Temp 97.2 F 02/14/25 11:46 Pulse 97 02/14/25 11:46 Resp 18 02/14/25 11:46 BP 139/70 02/14/25 11:46 Pulse Ox 99 02/14/25 11:46 O2 Del Method Room Air 02/14/25 11:46 BMI result Body Mass Index 27.6 Objective Data Active Medications Albuterol Sulfate (Albuterol Sulfate (0.083%) 2.5 Mg/3 Ml Vial.Neb) 2.5 mg INHALE Q4H PRN PRN Reason: Wheezing Albuterol Sulfate (Albuterol Sulfate 90 Mcg 8 Gm Inhaler) 2 puff INHALE Q6H PRN PRN Reason: Muscle Spasm Dextrose (Dextrose 50 % 25 Gm/50 Ml Syringe) 25 gm IVPUSH Q15M PRN; Protocol PRN Reason: per Hypoglycemia Standing Ord. Heparin Sodium (Porcine) (Heparin Sodium,Porcine 5,000 Unit/Ml Vial) 5,000 unit SUBCUT Q8H [facility] Last Admin: 02/14/25 08:40 Dose: 5,000 unit Documented By: CHRISSY Sodium Chloride (Ns) 1,000 mls @ 100 mls/hr IVCONT .Q10H [facility] Stop: 02/14/25 22:29 Insulin Human Lispro (Insulin Lispro 100 Unit/Ml 3 Ml Vial) 0 unit SUBCUT QIDACHS [facility]; Protocol Last Admin: 02/14/25 11:58 Dose: Not Given Documented By: CHRISSY Non-Admin Reason: No Insulin Coverage Omeprazole (Omeprazole 20 Mg Capsule.) 20 mg PO DAILY@0630 [facility] Last Admin: 02/14/25 05:55 Dose: 20 mg Documented By: MIRI Ondansetron HCl (Ondansetron Hcl 4 Mg/2 Ml Vial) 4 mg IVPUSH Q8H PRN PRN Reason: Nausea and Vomiting Sodium Chloride (0.9 % Sodium Chloride Flush 3 Ml Syringe) 3 ml IVFLUSH QSHIFT [facility] Last Admin: 02/14/25 08:43 Dose: 3 ml Documented By: CHRISSY Labs 02/14/25 07:13 02/14/25 07:13 Labs: Laboratory Results - last 24 hr 02/13/25 02/13/25 02/13/25 14:16 16:00 20:22 MCV MCH MCHC RDW Plt Count MPV Immature Gran % (Auto) Neut % (Auto) Lymph % (Auto) Frio % (Auto) Eos % (Auto) Baso % (Auto) Lymph # (Auto) Frio # (Auto) Eos # (Auto) Baso # (Auto) Abs Immat Gran (auto) Absolute Neuts (auto) Absolute Nucleated RBC Nucleated RBC % (auto) VBG pH VBG pCO2 VBG pO2 VBG HCO3 VBG O2 Saturation VBG Base Excess Anion Gap Estim Creat Clear Calc Estimated GFR POC Glucose 118 H 95 105 Random Glucose Calcium Phosphorus Magnesium Albumin 02/14/25 02/14/25 02/14/25 07:13 07:20 07:29 MCV 87.2 MCH 28.8 MCHC 33.0 RDW 18.4 H Plt Count 236 MPV 9.7 Immature Gran % (Auto) 0.7 H Neut % (Auto) 76.4 H Lymph % (Auto) 11.5 L Frio % (Auto) 8.0 Eos % (Auto) 2.9 Baso % (Auto) 0.5 Lymph # (Auto) 1.2 Frio # (Auto) 0.8 Eos # (Auto) 0.3 Baso # (Auto) 0.1 Abs Immat Gran (auto) 0.07 H Absolute Neuts (auto) 7.7 Absolute Nucleated RBC 0.000 Nucleated RBC % (auto) 0.0 VBG pH 7.53 H VBG pCO2 44 VBG pO2 78 VBG HCO3 37 H VBG O2 Saturation 95.0 VBG Base Excess 13.2 Anion Gap 20 Estim Creat Clear Calc 5.2 Estimated GFR 3 POC Glucose 103 Random Glucose 106 Calcium 9.2 D Phosphorus 4.3 Magnesium 2.1 Albumin 3.6 02/14/25 11:19 MCV MCH MCHC RDW Plt Count MPV Immature Gran % (Auto) Neut % (Auto) Lymph % (Auto) Frio % (Auto) Eos % (Auto) Baso % (Auto) Lymph # (Auto) Frio # (Auto) Eos # (Auto) Baso # (Auto) Abs Immat Gran (auto) Absolute Neuts (auto) Absolute Nucleated RBC Nucleated RBC % (auto) VBG pH VBG pCO2 VBG pO2 VBG HCO3 VBG O2 Saturation VBG Base Excess Anion Gap Estim Creat Clear Calc Estimated GFR POC Glucose 125 H Random Glucose Calcium Phosphorus Magnesium Albumin Assessment and Plan (1) Anxiety: Status: Acute Plan 65-year-old lady with underlying rheumatoid arthritis, diabetes with neuropathy, hypertension, coronary artery disease, peripheral artery disease with recent angiogram and recanalization of the right posterior and anterior tibial arteries admitted on 02/12/2025 the day history of malaise. On ER evaluation patient acute renal failure profound metabolic hyperkalemia, started on IV fluid resuscitation, making urine. CT abdomen with no evidence of hydronephrosis. Metabolic acidosis and hyperkalemia resolved. Off bicarbonate drip. Downgraded to the medical floor 02/13. Acute renal failure with severe metabolic acidosis and hyperkalemia due to ATN vs AIN ua negative for infection s/p bicarb drip in ICU acidosis and hyperkalemia resolved nephrology following worsening creat 11.22 check ANCA, complements, prot/creat ratio, UA lytes. CBC and INR in the am 1 liter NS trend BMP anemia drop in H/H suspected to be due to hemodilution from IVF resuscitation no evidence of bleeding noted DM 2 sliding scale hold metformin transaminitis imaging with fatty liver dz, but previous LFTs normal trend LFTs angioedema resolved thought to be due to lisinopril stop lisinopril on discharge low attenuation lesion of pancreas recommend outpatient CT or MRI with IV contrast h/p PAD asa, plavix have been on hold if H/H remains stable can likely resume Quality Stroke Does the patient have a stroke diagnosis?: No VTE Prior VTE?: No VTE Risk Level:: Medical - moderate - high VTE Device Contraindication: Treatment Not Indicated VTE Drug Contraindication: N/A - Med Ordered
[2025-02-14 15:12] LABS: Appearance Urine Cloudy; Glucose Urine UA Negative (Negative); PH >= 9.0 (5.0-9.0); Specific Gravity - Urine <= 1.005 (1.005-1.025); UMIC TRIGGER UACC YES
[2025-02-14 15:24] LABS: Protein/Creatinine Ratio, Ur 2.69 (<0.2); Total Protein Urine Random 61 mg/dL (<12)
[2025-02-14 16:00] VITALS: BP 131/70; PULSE 99; RESP 18; TEMP 36.6; O2SAT 97
[2025-02-14 16:01] LABS: Glucose, Whole Blood 121 mg/dL (60-115)
--- NOTE | 2025-02-14 19:21 | PC.NURSE ---
patient had to have a new farmer inserted due to constant leaking of the catheter, accurate I and O's could not be obtained due to this issue. Provider is aware of this issue.
[2025-02-14 19:41] VITALS: BP 144/76; PULSE 100; RESP 16; TEMP 36.9; O2SAT 96
[2025-02-14 21:00] LABS: Glucose, Whole Blood 114 mg/dL (60-115)
[2025-02-14 23:50] VITALS: BP 138/80; PULSE 93; RESP 20; TEMP 37.2; O2SAT 96
[2025-02-15 04:00] VITALS: BP 129/58; PULSE 94; RESP 20; TEMP 37.5; O2SAT 95
[2025-02-15 06:00] VITALS: BMI 27.7
[2025-02-15 07:38] LABS: Glucose, Whole Blood 125 mg/dL (60-115)
[2025-02-15 07:46] VITALS: BP 148/76; PULSE 95; RESP 18; TEMP 36.7; O2SAT 96
[2025-02-15] MEDS: 0.9 % Sodium Chloride Flush 3 ML SYRINGE IVFLUSH ×2 (09:11→17:45)
[2025-02-15 09:38] LABS: Anion Gap 19 (12-20); Blood Urea Nitrogen 86 mg/dL (9-16); Calcium 9.1 mg/dL (8.4-10.2); Carbon Dioxide 26 mmol/L (22-29); Chloride 101 mmol/L (96-108); Creatinine Clr Calc Pharmacy 5.1; Estimated Glomerular Filt Rate 3; Potassium 5.2 mmol/L (3.3-5.1); Sodium 141 mmol/L (135-145)
--- NOTE | 2025-02-15 10:22 | HO.PM.IMPN ---
Subjective Subjective Date of Service: 02/15/25 Review of Systems Follow up GABRIELLE feeling fine today but creatinine worse no abd pain, nausea and vomiting Physical Exam Exam: Exam: Appearing in no acute distress head is normocephalic atraumatic eyes pupils are PERRLA sclera is anicteric mouth throat mucous membranes are intact and moist neck is supple no lymphadenopathy, no JVD noted lung sounds are clear to auscultation heart regular rate rhythm, clear S1, S2 positive bowel sounds, abdomen is soft, nontender neuro patient is alert x3, no focal deficits Vital Signs: Vital Signs: Last Vital Signs Temp 98.1 F 02/15/25 07:46 Pulse 95 02/15/25 07:46 Resp 18 02/15/25 07:46 BP 148/76 H 02/15/25 07:46 Pulse Ox 96 02/15/25 07:46 O2 Del Method Room Air 02/15/25 07:46 BMI result Body Mass Index 27.7 Objective Data Active Medications Albuterol Sulfate (Albuterol Sulfate (0.083%) 2.5 Mg/3 Ml Vial.Neb) 2.5 mg INHALE Q4H PRN PRN Reason: Wheezing Albuterol Sulfate (Albuterol Sulfate 90 Mcg 8 Gm Inhaler) 2 puff INHALE Q6H PRN PRN Reason: Muscle Spasm Dextrose (Dextrose 50 % 25 Gm/50 Ml Syringe) 25 gm IVPUSH Q15M PRN; Protocol PRN Reason: per Hypoglycemia Standing Ord. Heparin Sodium (Porcine) (Heparin Sodium,Porcine 5,000 Unit/Ml Vial) 5,000 unit SUBCUT Q8H [facility] Last Admin: 02/15/25 09:11 Dose: 5,000 unit Documented By: ASHLY Insulin Human Lispro (Insulin Lispro 100 Unit/Ml 3 Ml Vial) 0 unit SUBCUT QIDACHS [facility]; Protocol Last Admin: 02/15/25 08:11 Dose: Not Given Documented By: SLAVA Non-Admin Reason: No Insulin Coverage Omeprazole (Omeprazole 20 Mg Capsule.) 20 mg PO DAILY@0630 [facility] Last Admin: 02/15/25 05:39 Dose: 20 mg Documented By: MIRI Ondansetron HCl (Ondansetron Hcl 4 Mg/2 Ml Vial) 4 mg IVPUSH Q8H PRN PRN Reason: Nausea and Vomiting Sodium Chloride (0.9 % Sodium Chloride Flush 3 Ml Syringe) 3 ml IVFLUSH QSHIFT [facility] Last Admin: 02/15/25 09:11 Dose: 3 ml Documented By: ASHLY Labs 02/14/25 07:13 02/15/25 08:59 Labs: Laboratory Results - last 24 hr 02/14/25 02/14/25 02/14/25 11:19 12:36 14:45 Hold Purple Top SEE NOTE Anion Gap Estim Creat Clear Calc Estimated GFR POC Glucose 125 H Random Glucose Calcium Urine Color Yellow Urine Appearance Cloudy Urine pH >= 9.0 Ur Specific [place] <= 1.005 Urine Protein 100 (2+) H Urine Glucose (UA) Negative Urine Ketones Negative Urine Blood Large (3+) H Urine Nitrite Negative Ur Leukocyte Esterase Negative Urine RBC 6-10 H Urine WBC 0-5 Ur Squamous Epith Cells 0-2 Urine Bacteria None Seen Hyaline Casts 0-2 U Random Total Protein 61 H Ur Random Sodium 74.0 Ur Random Potassium 12.1 Ur Random Chloride 49.0 Urine Creatinine 22.69 Protein/Creatinin Ratio 2.69 H 02/14/25 02/14/25 02/15/25 15:56 20:52 07:29 Hold Purple Top Anion Gap Estim Creat Clear Calc Estimated GFR POC Glucose 121 H 114 125 H Random Glucose Calcium Urine Color Urine Appearance Urine pH Ur Specific [place] Urine Protein Urine Glucose (UA) Urine Ketones Urine Blood Urine Nitrite Ur Leukocyte Esterase Urine RBC Urine WBC Ur Squamous Epith Cells Urine Bacteria Hyaline Casts U Random Total Protein Ur Random Sodium Ur Random Potassium Ur Random Chloride Urine Creatinine Protein/Creatinin Ratio 02/15/25 08:59 Hold Purple Top SEE NOTE Anion Gap 19 Estim Creat Clear Calc 5.1 Estimated GFR 3 POC Glucose Random Glucose 104 Calcium 9.1 Urine Color Urine Appearance Urine pH Ur Specific [place] Urine Protein Urine Glucose (UA) Urine Ketones Urine Blood Urine Nitrite Ur Leukocyte Esterase Urine RBC Urine WBC Ur Squamous Epith Cells Urine Bacteria Hyaline Casts U Random Total Protein Ur Random Sodium Ur Random Potassium Ur Random Chloride Urine Creatinine Protein/Creatinin Ratio Assessment and Plan (1) Anxiety: Status: Acute Plan 65-year-old lady with underlying rheumatoid arthritis, diabetes with neuropathy, hypertension, coronary artery disease, peripheral artery disease with recent angiogram and recanalization of the right posterior and anterior tibial arteries admitted on 02/12/2025 the day history of malaise. On ER evaluation patient acute renal failure profound metabolic hyperkalemia, started on IV fluid resuscitation, making urine. CT abdomen with no evidence of hydronephrosis. Metabolic acidosis and hyperkalemia resolved. Off bicarbonate drip. Downgraded to the medical floor 02/13. Acute renal failure with severe metabolic acidosis and hyperkalemia due to ATN vs AIN ua negative for infection, no hydronephrosis or obstruction s/p bicarb drip in ICU acidosis and hyperkalemia resolved worsening creat 11.50 ANCA, complements pending prot/creat ratio 5.69, UA lytes wnl, INR 1.2 s/p 1 liter NS hoffmann ordered for presumed dialysis Renal biopsy ordered NPO after midnight Anemia drop in H/H suspected to be due to hemodilution from IVF resuscitation no evidence of bleeding noted DM 2 sliding scale hold metformin Transaminitis imaging with fatty liver dz, but previous LFTs normal trend LFTs Angioedema resolved thought to be due to lisinopril stop lisinopril on discharge low attenuation lesion of pancreas recommend outpatient CT or MRI with IV contrast h/p PAD asa, plavix have been on hold if H/H remains stable can likely resume DVT prophylaxis with heparin Full code Quality Stroke Does the patient have a stroke diagnosis?: No VTE Prior VTE?: No VTE Risk Level:: Medical - moderate - high VTE Device Contraindication: Treatment Not Indicated VTE Drug Contraindication: N/A - Med Ordered
[2025-02-15 12:00] VITALS: BP 146/83; PULSE 100; RESP 18; TEMP 36.6; O2SAT 96
[2025-02-15 12:00] LABS: Glucose, Whole Blood 125 mg/dL (60-115)
[2025-02-15 15:58] VITALS: BP 154/81; PULSE 99; RESP 18; TEMP 36.1; O2SAT 97
[2025-02-15 16:18] LABS: Glucose, Whole Blood 91 mg/dL (60-115)
[2025-02-15 20:00] VITALS: BP 136/71; PULSE 100; RESP 16; TEMP 36; O2SAT 99
[2025-02-15 20:53] LABS: Glucose, Whole Blood 104 mg/dL (60-115)
[2025-02-15 23:46] VITALS: BP 132/72; PULSE 100; RESP 18; TEMP 36.3; O2SAT 96
[2025-02-16] VITALS (8 sets, daily range): BP systolic 131–168; BP diastolic 68–86; PULSE 88–114; RESP 16–20; TEMP 36–36.8; O2SAT 92–99; BMI 26.0
[2025-02-16 07:29] LABS: Anion Gap 21 (12-20); Blood Urea Nitrogen 95 mg/dL (9-16); Calcium 9.1 mg/dL (8.4-10.2); Carbon Dioxide 24 mmol/L (22-29); Chloride 99 mmol/L (96-108); Creatinine Clr Calc Pharmacy 4.7; Estimated Glomerular Filt Rate 3; Potassium 5.4 mmol/L (3.3-5.1); Sodium 139 mmol/L (135-145)
[2025-02-16 07:30] LABS: Glucose, Whole Blood 112 mg/dL (60-115)
--- NOTE | 2025-02-16 07:46 | PC.NURSE ---
Addendum entered by Carolann Ceron RN 02/16/25 07:54: Pt denied burning with voiding after farmer removal. Original Note: Assumed care at 1900. Pt was c/o burning sensation and discomfort to farmer catheter. Kari Herrera notified of this and verbal order received to remove farmer catheter. Purewik placed, pt voided by DTV time. See flowsheets for more info. Plan of care ongoing.
--- NOTE | 2025-02-16 08:50 | P.PNIM_ITS ---
Subjective Subjective Date of Service: 02/16/25 Review of Systems F/U GABRIELLE Did not sleep well last night because was not given Zolpidem Nausea due to NPO status Mild lower abdominal discomfort due to farmer catheter Review of Systems: Yes all other systems are reviewed and are negative Physical Exam 2 Exam: Exam: Appearing in no acute distress lung sounds are clear to auscultation heart regular rate rhythm, clear S1, S2 positive bowel sounds, abdomen is soft, nontender neuro patient is alert x3, no focal deficits Vital Signs: Vital Signs: Last Vital Signs Temp 97.4 F 02/16/25 07:18 Pulse 91 02/16/25 07:18 Resp 16 02/16/25 07:18 BP 142/74 H 02/16/25 07:18 Pulse Ox 98 02/16/25 07:18 O2 Del Method Room Air 02/16/25 07:18 BMI result Body Mass Index 26.0 Objective Data Active Medications Albuterol Sulfate (Albuterol Sulfate (0.083%) 2.5 Mg/3 Ml Vial.Neb) 2.5 mg INHALE Q4H PRN PRN Reason: Wheezing Albuterol Sulfate (Albuterol Sulfate 90 Mcg 8 Gm Inhaler) 2 puff INHALE Q6H PRN PRN Reason: Muscle Spasm Dextrose (Dextrose 50 % 25 Gm/50 Ml Syringe) 25 gm IVPUSH Q15M PRN; Protocol PRN Reason: per Hypoglycemia Standing Ord. Heparin Sodium (Porcine) (Heparin Sodium,Porcine 5,000 Unit/Ml Vial) 5,000 unit SUBCUT Q8H [facility] On Hold: 02/16/25 07:38 Last Admin: 02/16/25 06:21 Dose: Not Given Documented By: RAMÓN Non-Admin Reason: Patient Condition Contraindication Insulin Human Lispro (Insulin Lispro 100 Unit/Ml 3 Ml Vial) 0 unit SUBCUT QIDACHS [facility]; Protocol Last Admin: 02/16/25 07:51 Dose: Not Given Documented By: FLACO Non-Admin Reason: No Insulin Coverage Omeprazole (Omeprazole 20 Mg Capsule.) 20 mg PO DAILY@0630 [facility] Last Admin: 02/16/25 06:21 Dose: Not Given Documented By: RAMÓN Non-Admin Reason: NPO Ondansetron HCl (Ondansetron Hcl 4 Mg/2 Ml Vial) 4 mg IVPUSH Q8H PRN PRN Reason: Nausea and Vomiting Sodium Chloride (0.9 % Sodium Chloride Flush 3 Ml Syringe) 3 ml IVFLUSH QSHIFT I[facility] Last Admin: 02/16/25 00:00 Dose: Not Given Documented By: RAMÓN Non-Admin Reason: Previously Administered Labs 02/14/25 07:13 02/16/25 06:26 Labs: Laboratory Results - last 24 hr 02/15/25 02/15/25 02/15/25 08:59 11:37 16:10 Hold Purple Top SEE NOTE Anion Gap 19 Estim Creat Clear Calc 5.1 Estimated GFR 3 POC Glucose 125 H 91 Random Glucose 104 Calcium 9.1 02/15/25 02/16/25 02/16/25 20:43 06:26 07:20 Hold Purple Top Anion Gap 21 H Estim Creat Clear Calc 4.7 Estimated GFR 3 POC Glucose 104 112 Random Glucose 102 Calcium 9.1 Assessment and Plan (1) Metabolic acidosis: Status: Acute Plan Plan 65-year-old lady with underlying rheumatoid arthritis, diabetes with neuropathy, hypertension, coronary artery disease, peripheral artery disease with recent angiogram and recanalization of the right posterior and anterior tibial arteries admitted on 02/12/2025 the day history of malaise. On ER evaluation patient acute renal failure profound metabolic hyperkalemia, started on IV fluid resuscitation, making urine. CT abdomen with no evidence of hydronephrosis. Metabolic acidosis and hyperkalemia resolved. Off bicarbonate drip. Downgraded to the medical floor 02/13. Acute renal failure with severe metabolic acidosis and hyperkalemia due to ATN vs AIN ua negative for infection, no hydronephrosis or obstruction s/p bicarb drip in ICU , acidosis and hyperkalemia resolved prot/creat ratio 5.69, UA lytes wnl, INR 1.2 s/p IV fluids ANCA, complements pending IJ catheter placement today for initiation of dialysis. NPO after midnight for renal biopsy scheduled for tomorrow. Maintain strict intake and output Anemia drop in H/H suspected to be due to hemodilution from IVF resuscitation no evidence of bleeding noted DM 2 sliding scale hold metformin due to renal failure Transaminitis imaging with fatty liver dz, but previous LFTs normal trend LFTs Angioedema resolved thought to be due to lisinopril stop lisinopril on discharge Low attenuation lesion of pancreas recommend outpatient CT or MRI with IV contrast h/o PAD asa, plavix have been on hold if H/H remains stable can likely resume DVT prophylaxis with heparin Full code Quality Stroke Does the patient have a stroke diagnosis?: No VTE Prior VTE?: No VTE Risk Level:: Medical - moderate - high VTE Device Contraindication: Treatment Not Indicated VTE Drug Contraindication: N/A - Med Ordered
[2025-02-16] MEDS: 0.9 % Sodium Chloride Flush 3 ML SYRINGE IVFLUSH ×2 (09:19→20:06)
[2025-02-16 12:02] LABS: Glucose, Whole Blood 81 mg/dL (60-115)
--- NOTE | 2025-02-16 13:34 | MHC.CM.PN ---
Pt. is not ready to DC, per rounds, she is starting new dialysis.
[2025-02-16 15:41] LABS: Glucose, Whole Blood 94 mg/dL (60-115)
--- NOTE | 2025-02-16 16:03 | W.PM.DNNEP ---
Subjective Subjective Date of Service: 02/17/25 This patient was seen during dialysis. Sleeping during dialysis Started on for session of dialysis today, tolerating well so far Physical Exam Vital Signs: Vital Signs: Last Vital Signs Temp 96.8 F 02/16/25 11:49 Pulse 88 02/16/25 11:49 Resp 16 02/16/25 11:49 BP 132/86 02/16/25 11:49 Pulse Ox 98 02/16/25 11:49 O2 Del Method Room Air 02/16/25 11:49 BMI result Body Mass Index 26.0 General: not in any acute distress, ill appearing Nutritional Appearance: well nourished and overweight Eyes: appearance normal, both eyes and all related structures; Alignment and Position: alignment normal and position normal Neck: No lymphadenopathy, no thyromegaly Resp: bilateral air entry equal, no added sounds present Cardio: Regular rate, regular rhythm; Heart sounds: S1 normal heart sound present and S2 normal heart sound present GI: soft, nontender, no guarding, no hepatosplenomegaly : bladder normal to inspection, bladder normal to palpation, no renal angle tenderness Skin: no rashes or lesions noted and elasticity normal Neuro: alert, oriented x 3, moves all extremities Assessment & Plan Assessment and plan (1) Acute renal failure: Status: Acute (2) Acute hyperkalemia: Status: Acute Plan Acute kidney injury: Patient has GABRIELLE of unknown etiology for which she is planned to undergo renal biopsy to determine the etiology. Her UA showed 2+ protein, 3+ blood and 6-10 WBCs Patient received IV contrast for lower extremity angiogram on 01/28/2025, discussed delayed presentation might be unrelated. CT abdomen and pelvis showed bilateral small non obstructing renal calculi, no hydronephrosis. Since the creatinine continued to increase and patient had very poor clearance she is initiated on renal replacement therapy this morning which she tolerated well. She is scheduled for renal biopsy tomorrow, next session of dialysis would be on Sunday. Time Spent With Patient Time: Total time managing care of this patient today ____ minutes. Procedures Date of Service Date of Service: 02/17/25
[2025-02-16 20:36] LABS: Glucose, Whole Blood 133 mg/dL (60-115)
[2025-02-17] VITALS (11 sets, daily range): BP systolic 123–153; BP diastolic 68–81; PULSE 89–102; RESP 16–317; TEMP 36.3–37.3; O2SAT 95–100; BMI 25.8; BMI 26.4
[2025-02-17 04:24] LABS: HBS Num1 0.00 mIU/mL (0-7.99); HBc Num1 0.04 S/CO (0.00-0.79); HBsAGNum1 0.32 S/CO (0.00-0.99); Hepatitis B Surface Antigen Negative (Negative); ~Hepatitis B Surface Antibody NONREACTIVE (Nonreactive)
[2025-02-17 06:12] LABS: Hematocrit 28.5 % (37.0-47.0); Hemoglobin 9.3 g/dl (12.0-16.0); Mean Corpuscular HGB Conc 32.6 g/dl (31.0-35.0); Mean Corpuscular Hemoglobin 28.4 pg (27.0-33.0); Mean Corpuscular Volume 87.2 fL (80.0-98.0); NRBC Abs Auto 0.000 X10*3/uL (0.0-0.012); NRBC Pct Auto 0.0 /100WBC (0.0-0.2); Platelet Count 229 X10*3/uL (160-400); Red Blood Count 3.27 X10*6/uL (4.20-5.50); White Blood Count 12.8 X10*3/uL (4.8-10.8)
[2025-02-17 06:32] LABS: Anion Gap 18 (12-20); Blood Urea Nitrogen 45 mg/dL (9-16); Calcium 9.0 mg/dL (8.4-10.2); Carbon Dioxide 27 mmol/L (22-29); Chloride 99 mmol/L (96-108); Creatinine Clr Calc Pharmacy 8.2; Estimated Glomerular Filt Rate 6; Potassium 4.0 mmol/L (3.3-5.1); Sodium 140 mmol/L (135-145)
[2025-02-17 07:15] LABS: Glucose, Whole Blood 112 mg/dL (60-115)
[2025-02-17] MEDS: 0.9 % Sodium Chloride Flush 3 ML SYRINGE IVFLUSH ×2 (09:36→20:19)
--- NOTE | 2025-02-17 09:42 | P.PNIM_ITS ---
Subjective Subjective Date of Service: 02/17/25 Review of Systems Follow up GABRIELLE s/p renal biopsy today first dialysis session 02/16 Review of Systems: Yes all other systems are reviewed and are negative Physical Exam 2 Exam: Exam: Appearing in no acute distress lung sounds are clear to auscultation heart regular rate rhythm, clear S1, S2 positive bowel sounds, abdomen is soft, nontender neuro patient is alert x3, no focal deficits Right IJ Vital Signs: Vital Signs: Last Vital Signs Temp 98.6 F 02/17/25 07:16 Pulse 93 02/17/25 08:50 Resp 317 H 02/17/25 08:50 BP 132/71 02/17/25 08:50 Pulse Ox 100 02/17/25 08:50 O2 Del Method Room Air 02/17/25 08:50 O2 Flow Rate 2 02/17/25 08:45 BMI result Body Mass Index 25.8 Objective Data Active Medications Acetaminophen (Acetaminophen 325 Mg Tablet) 650 mg PO Q6H PRN PRN Reason: Pain, Mild 1-3,fever,headache Albuterol Sulfate (Albuterol Sulfate (0.083%) 2.5 Mg/3 Ml Vial.Neb) 2.5 mg INHALE Q4H PRN PRN Reason: Wheezing Albuterol Sulfate (Albuterol Sulfate 90 Mcg 8 Gm Inhaler) 2 puff INHALE Q6H PRN PRN Reason: Muscle Spasm Dextrose (Dextrose 50 % 25 Gm/50 Ml Syringe) 25 gm IVPUSH Q15M PRN; Protocol PRN Reason: per Hypoglycemia Standing Ord. Heparin Sodium (Porcine) (Heparin Sodium,Porcine 5,000 Unit/Ml Vial) 5,000 unit SUBCUT Q8H [facility] On Hold: 02/16/25 07:38 Last Admin: 02/16/25 06:21 Dose: Not Given Documented By: RAMÓN Non-Admin Reason: Patient Condition Contraindication Hydromorphone HCl (Hydromorphone Hcl 1 Mg/Ml Syringe) 0.25 mg IVPUSH Q4H PRN; Protocol PRN Reason: Pain, Severe (Pain Scale 7-10) Last Admin: 02/17/25 06:11 Dose: 0.25 mg Documented By: ORQUIDEA Insulin Human Lispro (Insulin Lispro 100 Unit/Ml 3 Ml Vial) 0 unit SUBCUT QIDACHS [facility]; Protocol Last Admin: 02/17/25 08:39 Dose: Not Given Documented By: MAT Non-Admin Reason: No Insulin Coverage Omeprazole (Omeprazole 20 Mg Capsule.Dr) 20 mg PO DAILY@0630 [facility] Last Admin: 02/17/25 06:08 Dose: 20 mg Documented By: ORQUIDEA Ondansetron HCl (Ondansetron Hcl 4 Mg/2 Ml Vial) 4 mg IVPUSH Q8H PRN PRN Reason: Nausea and Vomiting Sodium Chloride (0.9 % Sodium Chloride Flush 3 Ml Syringe) 3 ml IVFLUSH QSHIFT [facility] Last Admin: 02/17/25 09:36 Dose: 3 ml Documented By: MAT Labs 02/17/25 05:06 02/17/25 05:06 Labs: Laboratory Results - last 24 hr 02/16/25 02/16/25 02/16/25 11:56 15:12 15:37 MCV MCH MCHC RDW Plt Count MPV Absolute Nucleated RBC Nucleated RBC % (auto) Anion Gap Estim Creat Clear Calc Estimated GFR POC Glucose 81 94 Random Glucose Calcium Hep Bs Antigen Negative Hep Bs Antibody NONREACTIVE Hep B Core Total Ab Nonreactive 02/16/25 02/17/25 02/17/25 20:13 05:06 07:08 MCV 87.2 MCH 28.4 MCHC 32.6 RDW 17.8 H Plt Count 229 MPV 10.7 Absolute Nucleated RBC 0.000 Nucleated RBC % (auto) 0.0 Anion Gap 18 Estim Creat Clear Calc 8.2 Estimated GFR 6 POC Glucose 133 H 112 Random Glucose 103 Calcium 9.0 Hep Bs Antigen Hep Bs Antibody Hep B Core Total Ab Assessment and Plan (1) Metabolic acidosis: Status: Acute Plan 65-year-old lady with underlying rheumatoid arthritis, diabetes with neuropathy, hypertension, coronary artery disease, peripheral artery disease with recent angiogram and recanalization of the right posterior and anterior tibial arteries admitted on 02/12/2025 the day history of malaise. On ER evaluation patient acute renal failure profound metabolic hyperkalemia, started on IV fluid resuscitation, making urine. CT abdomen with no evidence of hydronephrosis. Metabolic acidosis and hyperkalemia resolved. Off bicarbonate drip. Downgraded to the medical floor 02/13. Acute renal failure with severe metabolic acidosis and hyperkalemia due to ATN, creatinine peaked at 12.12 down to 7.0 today after dialysis ua negative for infection, no hydronephrosis or obstruction s/p bicarb drip in ICU, acidosis and hyperkalemia resolved prot/creat ratio 5.69, UA lytes wnl, INR 1.2 s/p IV fluids ANCA, complements pending IJ catheter placement for initiation of dialysis 02/16. s/p renal biopsy today Anemia drop in H/H suspected to be due to hemodilution from IVF resuscitation no evidence of bleeding noted DM 2 sliding scale hold metformin due to renal failure Transaminitis imaging with fatty liver dz, but previous LFTs normal Angioedema resolved thought to be due to lisinopril stop lisinopril on discharge Low attenuation lesion of pancreas recommend outpatient CT or MRI with IV contrast h/o PAD asa, plavix have been on hold if H/H remains stable can likely resume DVT prophylaxis with heparin Full code Quality Stroke Does the patient have a stroke diagnosis?: No VTE Prior VTE?: No VTE Risk Level:: Medical - moderate - high VTE Device Contraindication: Treatment Not Indicated VTE Drug Contraindication: N/A - Med Ordered
[2025-02-17 11:28] LABS: Glucose, Whole Blood 107 mg/dL (60-115)
--- NOTE | 2025-02-17 12:45 | HO.WOUND ---
Wound Consult: Follow up 65 yr old female admitted to [facility] on 02/12/25- See progress notes and H&P for detailed history. Wound consult follow up for right foot. Patient agreeable to assessment and photo documentation. Previous assessment and patient both gave history along with chart review. Patient followed by vascular and podiatry at [facility], with recent angio of right leg done. Weekly office visits with dr. rhodes, podiatry where they have been using mesalt, last visit appears to be 02/10/25. They feel wounds are improving, will continue current treatment with mesalt. Todays visit wounds are nearly healed, patient wound like to continue mesalt until seen by Dr. Rhodes upon discharge. Right foot/great toe 02/13/25 Right foot/great toe 02/17/25 Etiology: Diabetic foot wounds, vascular component noted - foot is warm and appears well perfused Wound Bed: DRY pink/yellow to foot, pale pink dry area to right great toe - great toe appears to be resurfaced Drainage / Odor: none Edges: ? rolled- hyperpigmentation surroudning Vika wound: ? No Induration, Fluctuance or Warmth noted - hyperpigmentation Pain: none Goals of Treatment: ? continue mesalt (sodium chloride impregnated gauze for use drawing fluid, bacteria and tissue into the dressing, out of the wound bed) Recommendations: 1. Turn and Reposition every 2 hours and as needed for patient comfort. Use pillows or wedges to support off loading positions. 2. Off Load all bony prominences with use of pillows and heel boots if needed. Apply Preventative foams where needed. 3. Use waffle cushion when up to chair, limit sitting times to 1-2 hours 3. Monitor for incontinence and moisture control, use barrier creams when needed for prevention and treatment. 4. Provide adequate and supplemental nutrition. 5. Order or Continue low air loss mattress. 6. When applicable maintain blood glucose levels per Providers order. Right foot and great toe: cleanse with saline, pat dry, cut mesalt to fit, cover with dry dressing (gauze and rolled gauze), change daily and PRN. Mesalt left at bedside, can also be found in wound care office. Re-consult wound care Nurse for wound deterioration or wound changes.
[2025-02-17 16:15] LABS: Magnesium 2.2 mg/dL (1.6-2.6)
--- NOTE | 2025-02-17 16:32 | P.PNNP_ITS ---
Subjective Subjective Date of Service: 02/17/25 Interval history: No new events overnight, complaints of pain at biopsy site. Physical Exam 2 Vital Signs: Vital Signs: Last Vital Signs Temp 99.2 F 02/17/25 15:42 Pulse 98 02/17/25 15:42 Resp 20 02/17/25 15:42 BP 146/81 H 02/17/25 15:42 Pulse Ox 97 02/17/25 15:42 O2 Del Method Room Air 02/17/25 15:42 O2 Flow Rate 2 02/17/25 08:45 BMI result Body Mass Index 25.8 General: not in any acute distress, ill appearing Nutritional Appearance: well nourished and overweight Eyes: appearance normal, both eyes and all related structures; Alignment and Position: alignment normal and position normal Neck: No lymphadenopathy, no thyromegaly Resp: bilateral air entry equal, no added sounds present Cardio: Regular rate, regular rhythm; Heart sounds: S1 normal heart sound present and S2 normal heart sound present GI: soft, nontender, no guarding, no hepatosplenomegaly : bladder normal to inspection, bladder normal to palpation, + renal angle tenderness Skin: no rashes or lesions noted and elasticity normal Neuro: alert, oriented x 3, moves all extremities Objective Data Labs 02/17/25 05:06 02/17/25 05:06 Labs: Laboratory Results - last 24 hr 02/16/25 02/16/25 02/17/25 15:12 20:13 05:06 WBC 12.8 H RBC 3.27 L Hgb 9.3 L Hct 28.5 L MCV 87.2 MCH 28.4 MCHC 32.6 RDW 17.8 H Plt Count 229 MPV 10.7 Absolute Nucleated RBC 0.000 Nucleated RBC % (auto) 0.0 Sodium 140 Potassium 4.0 D Chloride 99 Carbon Dioxide 27 Anion Gap 18 BUN 45 H Creatinine 7.00 H* Estim Creat Clear Calc 8.2 Estimated GFR 6 POC Glucose 133 H Random Glucose 103 Calcium 9.0 Magnesium Hep Bs Antigen Negative Hep Bs Antibody NONREACTIVE Hep B Core Total Ab Nonreactive 02/17/25 02/17/25 02/17/25 07:08 11:21 15:51 WBC RBC Hgb Hct MCV MCH MCHC RDW Plt Count MPV Absolute Nucleated RBC Nucleated RBC % (auto) Sodium Potassium Chloride Carbon Dioxide Anion Gap BUN Creatinine Estim Creat Clear Calc Estimated GFR POC Glucose 112 107 Random Glucose Calcium Magnesium 2.2 Hep Bs Antigen Hep Bs Antibody Hep B Core Total Ab Procedures Date of Service Date of Service: 02/17/25 Assessment & Plan Assessment and plan (1) Essential hypertension: Status: Acute (2) Acute renal failure: Status: Acute Plan Acute kidney injury: Patient has GABRIELLE of unknown etiology for which she underwent renal biopsy this morning. Procedure was uneven 4, complains of some flank pain Her UA showed 2+ protein, 3+ blood and 6-10 WBCs Patient received IV contrast for lower extremity angiogram on 01/28/2025, discussed delayed presentation might be unrelated. CT abdomen and pelvis showed bilateral small non obstructing renal calculi, no hydronephrosis. She received a session of renal replacement therapy yesterday, we will schedule next session of dialysis tomorrow. Creatinine decreased to 7.0 this morning from 12.12 yesterday; we will look forward for creatinine trend tomorrow. We will closely monitor her creatinine trend until next week to see if there is any signs of renal recovery, if not she would need a PermCath and outpatient dialysis placement which will be decided on Sunday. Anemia of CKD: We will continue to closely monitor Hemoglobin 9.3, transfuse for hemoglobin less than 7 grams/deciliter Time Spent With Patient Time: Total time managing care of this patient today ____ minutes. Progress Note: Quality Stroke Does the patient have a stroke diagnosis?: No
[2025-02-17 16:38] LABS: Glucose, Whole Blood 112 mg/dL (60-115)
[2025-02-17 20:07] LABS: Glucose, Whole Blood 119 mg/dL (60-115)
[2025-02-18 03:04] VITALS: BP 139/72; PULSE 100; RESP 20; TEMP 36.5; O2SAT 98
[2025-02-18 06:43] LABS: Hematocrit 28.5 % (37.0-47.0); Hemoglobin 9.4 g/dl (12.0-16.0); Mean Corpuscular HGB Conc 33.0 g/dl (31.0-35.0); Mean Corpuscular Hemoglobin 28.9 pg (27.0-33.0); Mean Corpuscular Volume 87.7 fL (80.0-98.0); NRBC Abs Auto 0.000 X10*3/uL (0.0-0.012); NRBC Pct Auto 0.0 /100WBC (0.0-0.2); Platelet Count 201 X10*3/uL (160-400); Red Blood Count 3.25 X10*6/uL (4.20-5.50); White Blood Count 13.0 X10*3/uL (4.8-10.8)
[2025-02-18 07:01] LABS: Anion Gap 19 (12-20); Blood Urea Nitrogen 67 mg/dL (9-16); Calcium 8.9 mg/dL (8.4-10.2); Carbon Dioxide 25 mmol/L (22-29); Chloride 98 mmol/L (96-108); Creatinine Clr Calc Pharmacy 6.9; Estimated Glomerular Filt Rate 5; Potassium 4.3 mmol/L (3.3-5.1); Sodium 138 mmol/L (135-145)
[2025-02-18 08:00] VITALS: BP 147/81; PULSE 94; RESP 18; TEMP 36.8; O2SAT 95
[2025-02-18 08:20] LABS: Glucose, Whole Blood 111 mg/dL (60-115)
[2025-02-18] MEDS: 0.9 % Sodium Chloride Flush 3 ML SYRINGE IVFLUSH (08:49)
--- NOTE | 2025-02-18 11:11 | P.PNIM_ITS ---
Subjective Subjective Date of Service: 02/18/25 Interval History: no new complaints today poor PO intake of food and water as per patient subjective report no abdominal pain, nausea or vomiting;; patient does not like taste of food - encouraged to increase and improve PO intake of food & water The patient has no other complaints renal biopsy performed yesterday Physical Exam 2 Vital Signs: Vital Signs: Last Vital Signs Temp 98.3 F 02/18/25 08:00 Pulse 94 02/18/25 08:00 Resp 18 02/18/25 08:00 BP 147/81 H 02/18/25 08:00 Pulse Ox 95 02/18/25 08:00 O2 Del Method Room Air 02/18/25 08:00 O2 Flow Rate 2 02/17/25 08:45 BMI result Body Mass Index 26.4 Objective Data Active Medications Acetaminophen (Acetaminophen 325 Mg Tablet) 650 mg PO Q6H PRN PRN Reason: Pain, Mild 1-3,fever,headache Last Admin: 02/17/25 16:51 Dose: 650 mg Documented By: MAT Albuterol Sulfate (Albuterol Sulfate (0.083%) 2.5 Mg/3 Ml Vial.Neb) 2.5 mg INHALE Q4H PRN PRN Reason: Wheezing Albuterol Sulfate (Albuterol Sulfate 90 Mcg 8 Gm Inhaler) 2 puff INHALE Q6H PRN PRN Reason: Muscle Spasm Dextrose (Dextrose 50 % 25 Gm/50 Ml Syringe) 25 gm IVPUSH Q15M PRN; Protocol PRN Reason: per Hypoglycemia Standing Ord. Heparin Sodium (Porcine) (Heparin Sodium,Porcine 5,000 Unit/Ml Vial) 5,000 unit SUBCUT Q8H [facility] On Hold: 02/16/25 07:38 Last Admin: 02/16/25 06:21 Dose: Not Given Documented By: RAMÓN Non-Admin Reason: Patient Condition Contraindication Hydromorphone HCl (Hydromorphone Hcl 1 Mg/Ml Syringe) 0.25 mg IVPUSH Q4H PRN; Protocol PRN Reason: Pain, Severe (Pain Scale 7-10) Last Admin: 02/18/25 06:23 Dose: 0.25 mg Documented By: ROSANGELA Insulin Human Lispro (Insulin Lispro 100 Unit/Ml 3 Ml Vial) 0 unit SUBCUT QIDACHS [facility]; Protocol Last Admin: 02/18/25 08:48 Dose: Not Given Documented By: NAVNEET Non-Admin Reason: No Insulin Coverage Omeprazole (Omeprazole 20 Mg Capsule.Dr) 20 mg PO DAILY@0630 [facility] Last Admin: 02/18/25 06:18 Dose: 20 mg Documented By: ROSANGELA Ondansetron HCl (Ondansetron Hcl 4 Mg/2 Ml Vial) 4 mg IVPUSH Q8H PRN PRN Reason: Nausea and Vomiting Sodium Chloride (0.9 % Sodium Chloride Flush 3 Ml Syringe) 3 ml IVFLUSH QSHIFT [facility] Last Admin: 02/18/25 08:49 Dose: 3 ml Documented By: NAVNEET Zolpidem Tartrate (Zolpidem Tartrate 5 Mg Tablet) 5 mg PO BEDTIME PRN PRN Reason: Insomnia Last Admin: 02/17/25 20:14 Dose: 5 mg Documented By: ROSANGELA Labs 02/18/25 06:26 02/18/25 06:26 Labs: Laboratory Results - last 24 hr 02/17/25 02/17/25 02/17/25 11:21 15:51 16:31 MCV MCH MCHC RDW Plt Count MPV Absolute Nucleated RBC Nucleated RBC % (auto) Anion Gap Estim Creat Clear Calc Estimated GFR POC Glucose 107 112 Random Glucose Calcium Magnesium 2.2 02/17/25 02/18/25 02/18/25 20:03 06:26 07:30 MCV 87.7 MCH 28.9 MCHC 33.0 RDW 17.5 H Plt Count 201 MPV 10.0 Absolute Nucleated RBC 0.000 Nucleated RBC % (auto) 0.0 Anion Gap 19 Estim Creat Clear Calc 6.9 Estimated GFR 5 POC Glucose 119 H 111 Random Glucose 106 Calcium 8.9 Magnesium Assessment and Plan (1) PAD (peripheral artery disease): Status: Acute (2) Venous insufficiency of both lower extremities: Status: Acute (3) Type 2 diabetes mellitus with unspecified complications: Status: Acute (4) Type 2 diabetes mellitus with hyperglycemia: Status: Acute (5) Acute renal failure: Status: Acute (6) Acute hyperkalemia: Status: Acute (7) Metabolic acidosis: Status: Acute (8) Bilateral renal stones: Status: Acute (9) Ureterolithiasis: Status: Acute (10) Iron deficiency anemia, unspecified: Status: Acute (11) Microcytic hypochromic anemia: Status: Acute (12) Rheumatoid arthritis: Status: Acute Plan 65-year-old woman with rheumatoid arthritis, type 2 diabetes with neuropathy, hypertension, CAD, and PAD (recent RLE angiogram with tibial recanalization), admitted on 02/12/25 with malaise and found to have severe GABRIELLE with profound metabolic acidosis and hyperkalemia requiring ICU care and bicarbonate infusion, now improved with resolution of acidosis and hyperkalemia, downgraded from ICU to medical floor on 02/13/25. Acute Kidney Injury with Severe Metabolic Acidosis and Hyperkalemia (improving) Presented with profound GABRIELLE complicated by metabolic acidosis and life- threatening hyperkalemia. Etiology suspected to be ATN vs AIN. Imaging negative for obstruction; UA without evidence of infection. Required ICU admission and bicarbonate infusion with subsequent biochemical improvement. Currently making urine and clinically stable on the floor with nephrology following. Plan: * Continue close nephrology follow-up * Trend BMP daily to monitor renal function and electrolytes * Avoid nephrotoxins and IV contrast * Maintain euvolemia * Monitor urine output Anemia Downtrend in hemoglobin during hospitalization, suspected secondary to hemodilution from IV fluid resuscitation. No evidence of active bleeding. Plan: * Trend CBC * Monitor for signs of bleeding * No transfusion indicated at this time Type 2 Diabetes Mellitus Diabetes complicated by neuropathy. Oral agents held in the setting of acute renal failure. Plan: * Hold metformin * Monitor blood glucose levels * Resume appropriate outpatient regimen once renal function stabilizes Transaminitis Mild elevation in liver enzymes with imaging showing fatty liver disease. Prior LFTs reportedly normal. Plan: * Trend LFTs during hospitalization * No acute intervention at this time History of Angioedema (resolved) Prior episode felt to be secondary to lisinopril; now resolved. Plan: * Avoid KELLEY inhibitors * Ensure lisinopril is discontinued at discharge Incidental Low-Attenuation Pancreatic Lesion CT imaging noted low-attenuation lesion in the pancreas requiring further characterization. Plan: * Recommend outpatient CT or MRI with IV contrast once renal function allows Peripheral Artery Disease (s/p recent angiogram and recanalization) On dual antiplatelet therapy prior to admission; antiplatelets currently held during hospitalization. Plan: * Continue to hold aspirin and clopidogrel * Consider resumption if hemoglobin remains stable and no bleeding concerns [employer] * VTE Prophylaxis:?heparin 5000 * Code Status:?Full code * Diet:?renal Total time managing care of this patient today: 45 minutes. Quality Stroke Does the patient have a stroke diagnosis?: No VTE Prior VTE?: No VTE Risk Level:: Medical - moderate - high VTE Device Contraindication: Treatment Not Indicated VTE Drug Contraindication: N/A - Med Ordered
[2025-02-18 11:18] LABS: Glucose, Whole Blood 90 mg/dL (60-115)
[2025-02-18 11:46] VITALS: BP 109/85; PULSE 90; RESP 18; TEMP 37.1; O2SAT 99
--- NOTE | 2025-02-18 15:42 | W.PM.DNNEP ---
Subjective Subjective Date of Service: 02/18/25 This patient was seen during dialysis. Interval history: no new complaints today poor PO intake of food and water as per patient subjective report no abdominal pain, nausea or vomiting;; patient does not like taste of food - encouraged to increase and improve PO intake of food & water The patient has no other complaints renal biopsy performed yesterday Physical Exam Vital Signs: Vital Signs: Last Vital Signs Temp 98.8 F 02/18/25 11:46 Pulse 90 02/18/25 11:46 Resp 18 02/18/25 11:46 BP 109/85 02/18/25 11:46 Pulse Ox 99 02/18/25 11:46 O2 Del Method Room Air 02/18/25 11:46 O2 Flow Rate 2 02/17/25 08:45 BMI result Body Mass Index 26.4 Assessment & Plan Assessment and plan (1) Acute renal failure: Status: Acute (2) Acute hyperkalemia: Status: Acute Plan Acute kidney injury: Patient has GABRIELLE of unknown etiology for which she underwent renal biopsy yesterday which showed poor sampling; would need a repeat biopsy Her UA showed 2+ protein, 3+ blood and 6-10 WBCs Patient received IV contrast for lower extremity angiogram on 01/28/2025, discussed delayed presentation might be unrelated. CT abdomen and pelvis showed bilateral small non obstructing renal calculi, no hydronephrosis. Underwent session of hemodialysis this morning, which he tolerated okay hemodynamically but he is complaining of pain and states she did not like it. There is still no signs of renal recovery with creatinine still remaining high about 8.37. Anemia of CKD: We will continue to closely monitor Hemoglobin 9.3, transfuse for hemoglobin less than 7 grams/deciliter Time Spent With Patient Time: Total time managing care of this patient today ____ minutes. Procedures Date of Service Date of Service: 02/18/25
[2025-02-18 16:00] VITALS: BP 135/65; PULSE 100; RESP 18; TEMP 37.1; O2SAT 99
[2025-02-18 16:16] LABS: Glucose, Whole Blood 89 mg/dL (60-115)
[2025-02-18 19:27] VITALS: BP 158/72; PULSE 98; RESP 16; TEMP 36.4; O2SAT 98
[2025-02-18 21:35] LABS: Glucose, Whole Blood 99 mg/dL (60-115)
[2025-02-18 23:01] VITALS: BP 139/71; PULSE 99; RESP 16; TEMP 36.4; O2SAT 98
[2025-02-19 03:32] VITALS: BP 135/68; PULSE 95; RESP 16; TEMP 36.3; O2SAT 97
[2025-02-19] MEDS: 0.9 % Sodium Chloride Flush 3 ML SYRINGE IVFLUSH ×3 (03:39→16:16)
[2025-02-19 06:07] VITALS: BMI 25.3
[2025-02-19 07:31] LABS: Hematocrit 27.3 % (37.0-47.0); Hemoglobin 8.8 g/dl (12.0-16.0); Mean Corpuscular HGB Conc 32.2 g/dl (31.0-35.0); Mean Corpuscular Hemoglobin 28.3 pg (27.0-33.0); Mean Corpuscular Volume 87.8 fL (80.0-98.0); NRBC Abs Auto 0.000 X10*3/uL (0.0-0.012); NRBC Pct Auto 0.0 /100WBC (0.0-0.2); Platelet Count 221 X10*3/uL (160-400); Red Blood Count 3.11 X10*6/uL (4.20-5.50); White Blood Count 14.0 X10*3/uL (4.8-10.8)
[2025-02-19 07:34] VITALS: BP 129/60; PULSE 95; RESP 16; TEMP 37.3; O2SAT 99
[2025-02-19 08:13] LABS: Anion Gap 17 (12-20); Blood Urea Nitrogen 37 mg/dL (9-16); Calcium 8.9 mg/dL (8.4-10.2); Carbon Dioxide 27 mmol/L (22-29); Chloride 97 mmol/L (96-108); Creatinine Clr Calc Pharmacy 11.1; Estimated Glomerular Filt Rate 9; Potassium 3.4 mmol/L (3.3-5.1); Sodium 138 mmol/L (135-145)
--- NOTE | 2025-02-19 08:44 | P.PNIM_ITS ---
Subjective Subjective Date of Service: 02/19/25 Interval History: extensive discussion with the patient and her the patient has exensive contentions regarding another renal biopsy Discussed options and clinical reasoning behind repeat biopsy, as well as differentials. Discussion regarding patient's goals and treatment options, as she does not wish to continue HD. Informed the patient that this would be detrimental (and likely fatal) if she were to discontinue HD now, and if her renal function would not resolve on its own. Extensive discussion; patient likely agreebale to repeat renal biopsy if needed - agreeable for HD at this time. Review of Systems Review of Systems: Yes all other systems are reviewed and are negative Physical Exam 2 Exam: Exam: General:?Awake, alert, no acute distress. Appears fatigued but comfortable. HEENT:?Normocephalic, atraumatic. Mucous membranes moist. Neck:?Supple, no JVD. Cardiovascular:?Regular rate and rhythm. No murmurs, rubs, or gallops. Respiratory:?Clear to auscultation bilaterally. No wheezes, rales, or rhonchi. No increased work of breathing. Abdomen:?Soft, non-tender, non-distended. Bowel sounds present. Extremities:?No peripheral edema. Peripheral pulses diminished bilaterally, right lower extremity with chronic vascular changes, no acute ischemic findings. permcath line in place. Neurologic:?Alert and oriented ?3. No focal deficits. Skin:?Warm and dry. No rash. Vital Signs: Vital Signs: Last Vital Signs Temp 99.2 F 02/19/25 07:34 Pulse 95 02/19/25 07:34 Resp 16 02/19/25 07:34 BP 129/60 02/19/25 07:34 Pulse Ox 99 02/19/25 07:34 O2 Del Method Room Air 02/19/25 07:34 O2 Flow Rate 2 02/17/25 08:45 BMI result Body Mass Index 25.3 Objective Data Active Medications Acetaminophen (Acetaminophen 325 Mg Tablet) 650 mg PO Q6H PRN PRN Reason: Pain, Mild 1-3,fever,headache Last Admin: 02/17/25 16:51 Dose: 650 mg Documented By: MAT Albuterol Sulfate (Albuterol Sulfate (0.083%) 2.5 Mg/3 Ml Vial.Neb) 2.5 mg INHALE Q4H PRN PRN Reason: Wheezing Albuterol Sulfate (Albuterol Sulfate 90 Mcg 8 Gm Inhaler) 2 puff INHALE Q6H PRN PRN Reason: Muscle Spasm Dextrose (Dextrose 50 % 25 Gm/50 Ml Syringe) 25 gm IVPUSH Q15M PRN; Protocol PRN Reason: per Hypoglycemia Standing Ord. Heparin Sodium (Porcine) (Heparin Sodium,Porcine 5,000 Unit/Ml Vial) 5,000 unit SUBCUT Q8H [facility] On Hold: 02/16/25 07:38 Last Admin: 02/16/25 06:21 Dose: Not Given Documented By: RAMÓN Non-Admin Reason: Patient Condition Contraindication Hydromorphone HCl (Hydromorphone Hcl 1 Mg/Ml Syringe) 0.25 mg IVPUSH Q4H PRN; Protocol PRN Reason: Pain, Severe (Pain Scale 7-10) Last Admin: 02/18/25 12:12 Dose: 0.25 mg Documented By: NAVNEET Insulin Human Lispro (Insulin Lispro 100 Unit/Ml 3 Ml Vial) 0 unit SUBCUT QIDAS [facility]; Protocol Last Admin: 02/18/25 21:38 Dose: Not Given Documented By: ORQUIDEA Non-Admin Reason: No Insulin Coverage Omeprazole (Omeprazole 20 Mg Capsule.) 20 mg PO DAILY@0630 [facility] Last Admin: 02/19/25 06:33 Dose: 20 mg Documented By: BEATRIZ Ondansetron HCl (Ondansetron Hcl 4 Mg/2 Ml Vial) 4 mg IVPUSH Q8H PRN PRN Reason: Nausea and Vomiting Sodium Chloride (0.9 % Sodium Chloride Flush 3 Ml Syringe) [facility] Last Admin: 02/19/25 03:39 Dose: 3 ml Documented By: ORQUIDEA Zolpidem Tartrate (Zolpidem Tartrate 5 Mg Tablet) 5 mg PO BEDTIME PRN PRN Reason: Insomnia Last Admin: 02/18/25 22:21 Dose: 5 mg Documented By: ORQUIDEA Labs 02/19/25 06:14 02/19/25 06:14 Labs: Laboratory Results - last 24 hr 02/14/25 02/18/25 02/18/25 12:36 11:14 16:00 MCV MCH MCHC RDW Plt Count MPV Absolute Nucleated RBC Nucleated RBC % (auto) Anion Gap Estim Creat Clear Calc Estimated GFR POC Glucose 90 89 Random Glucose Calcium Complement C3 107 Complement C4 02/18/25 02/19/25 21:19 06:14 MCV 87.8 MCH 28.3 MCHC 32.2 RDW 17.4 H Plt Count 221 MPV 10.6 Absolute Nucleated RBC 0.000 Nucleated RBC % (auto) 0.0 Anion Gap 17 Estim Creat Clear Calc 11.1 Estimated GFR 9 POC Glucose 99 Random Glucose 105 Calcium 8.9 Complement C3 Complement C4 Assessment and Plan (1) Generalized anxiety disorder: Status: Acute (2) Hypertension, essential, benign: Status: Acute (3) Atherosclerotic cardiovascular disease: Status: Acute (4) Varicose veins of bilateral lower extremities with pain: Status: Acute (5) PAD (peripheral artery disease): Status: Acute (6) Hyperlipidemia: Status: Acute (7) Type 2 diabetes mellitus with unspecified complications: Status: Acute (8) Type 2 diabetes mellitus with hyperglycemia: Status: Acute (9) GERD (gastroesophageal reflux disease): Status: Acute (10) Bilateral renal stones: Status: Acute (11) Acute renal failure: Status: Acute (12) Ureterolithiasis: Status: Acute (13) Metabolic acidosis: Status: Acute (14) Acute hyperkalemia: Status: Acute (15) Iron deficiency anemia, unspecified: Status: Acute (16) Microcytic hypochromic anemia: Status: Acute (17) Rheumatoid arthritis: Status: Acute (18) Diabetic neuropathy associated with diabetes mellitus due to underlying condition: Status: Acute Plan 65-year-old woman with rheumatoid arthritis, type 2 diabetes with neuropathy, hypertension, CAD, and PAD (recent RLE angiogram with tibial recanalization), admitted on 02/12/25 with malaise and found to have severe GABRIELLE with profound metabolic acidosis and hyperkalemia requiring ICU care and bicarbonate infusion, now improved with resolution of acidosis and hyperkalemia, downgraded from ICU to medical floor on 02/13/25. Acute Kidney Injury with Severe Metabolic Acidosis and Hyperkalemia (improving) Presented with profound GABRIELLE complicated by metabolic acidosis and life- threatening hyperkalemia. Etiology suspected to be ATN vs AIN. Imaging negative for obstruction; UA without evidence of infection. Required ICU admission and bicarbonate infusion with subsequent biochemical improvement. Currently making urine and clinically stable on the floor with nephrology following. Renal biopsy was performed 02/17/25 Unfortunately, another sample needs to be obtained, and further discussion with patient will be held to clarify Plan: * Continue close nephrology follow-up * Trend BMP daily to monitor renal function and electrolytes * Avoid nephrotoxins and IV contrast * Maintain euvolemia * Monitor urine output * Will require re-biopsy of kidneys to clarify underlying etiology * Nephrology reccs greatly appreciated Anemia Downtrend in hemoglobin during hospitalization, suspected secondary to hemodilution from IV fluid resuscitation. No evidence of active bleeding. Plan: * Trend CBC * Monitor for signs of bleeding * No transfusion indicated at this time * Transfuse for Hgb<8mg/dl * Type and screen to be ordered next blood draw Type 2 Diabetes Mellitus Diabetes complicated by neuropathy. Oral agents held in the setting of acute renal failure. Plan: * Hold metformin * Monitor blood glucose levels * Resume appropriate outpatient regimen once renal function stabilizes Transaminitis Mild elevation in liver enzymes with imaging showing fatty liver disease. Prior LFTs reportedly normal. Plan: * Trend LFTs during hospitalization * No acute intervention at this time History of Angioedema (resolved) Prior episode felt to be secondary to lisinopril; now resolved. Plan: * Avoid KELLEY inhibitors * Ensure lisinopril is discontinued at discharge Incidental Low-Attenuation Pancreatic Lesion CT imaging noted low-attenuation lesion in the pancreas requiring further characterization. Plan: * Recommend outpatient CT or MRI with IV contrast once renal function allows Peripheral Artery Disease (s/p recent angiogram and recanalization) On dual antiplatelet therapy prior to admission; antiplatelets currently held during hospitalization. Plan: * Continue to hold aspirin and clopidogrel * Consider resumption if hemoglobin remains stable and no bleeding concerns QUALITY METRICS * VTE Prophylaxis:?heparin 5000 * Code Status:?Full code * Diet:?renal Total time managing care of this patient today: 45 minutes. Quality Stroke Does the patient have a stroke diagnosis?: No VTE Prior VTE?: No VTE Risk Level:: Medical - moderate - high VTE Device Contraindication: Treatment Not Indicated VTE Drug Contraindication: N/A - Med Ordered
[2025-02-19 09:33] LABS: Glucose, Whole Blood 114 mg/dL (60-115)
[2025-02-19 11:04] LABS: Glucose, Whole Blood 128 mg/dL (60-115)
[2025-02-19 11:28] VITALS: BP 121/72; PULSE 95; RESP 18; TEMP 37.1; O2SAT 99
[2025-02-19 15:41] VITALS: BP 145/70; PULSE 88; RESP 16; TEMP 37; O2SAT 100
[2025-02-19 16:20] LABS: Glucose, Whole Blood 108 mg/dL (60-115)
[2025-02-19 19:48] VITALS: BP 145/80; PULSE 85; RESP 18; TEMP 37.4; O2SAT 99
[2025-02-19 22:05] LABS: Glucose, Whole Blood 102 mg/dL (60-115)
[2025-02-19 23:40] VITALS: BP 128/62; PULSE 83; RESP 18; TEMP 37.5; O2SAT 99
[2025-02-20] VITALS (7 sets, daily range): BP systolic 119–140; BP diastolic 53–78; PULSE 86–110; RESP 16–20; TEMP 36.2–36.9; O2SAT 94–99; BMI 25.8
[2025-02-20 07:24] LABS: Glucose, Whole Blood 121 mg/dL (60-115)
[2025-02-20 11:35] LABS: Glucose, Whole Blood 90 mg/dL (60-115)
[2025-02-20 12:36] LABS: MANUAL DIFF FLAG NO
[2025-02-20 12:39] LABS: Hematocrit 29.2 % (37.0-47.0); Hemoglobin 9.7 g/dl (12.0-16.0); Imm Gran Abs Auto 0.14 X10*3/uL (0.00-0.03); Imm Gran Pct Auto 1.3 % (0.0-0.4); Lymphocytes Absolute Auto 1.0 X10*3/uL (1.2-4.9); Mean Corpuscular HGB Conc 33.2 g/dl (31.0-35.0); Mean Corpuscular Hemoglobin 28.9 pg (27.0-33.0); Mean Corpuscular Volume 86.9 fL (80.0-98.0); NRBC Abs Auto 0.000 X10*3/uL (0.0-0.012); NRBC Pct Auto 0.0 /100WBC (0.0-0.2); Platelet Count 230 X10*3/uL (160-400); Red Blood Count 3.36 X10*6/uL (4.20-5.50); White Blood Count 10.9 X10*3/uL (4.8-10.8)
--- NOTE | 2025-02-20 12:49 | P.PNIM_ITS ---
Subjective Subjective Date of Service: 02/20/25 Interval History: No new complaints or issues today. Patient was seen during hemodialysis No new symptoms plan for repeat renal biopsy Review of Systems Review of Systems: Yes all other systems are reviewed and are negative Physical Exam 2 Exam: Exam: General:?Awake, alert, no acute distress. Appears fatigued but comfortable. HEENT:?Normocephalic, atraumatic. Mucous membranes moist. Neck:?Supple, no JVD. Cardiovascular:?Regular rate and rhythm. No murmurs, rubs, or gallops. Respiratory:?Clear to auscultation bilaterally. No wheezes, rales, or rhonchi. No increased work of breathing. Abdomen:?Soft, non-tender, non-distended. Bowel sounds present. Extremities:?No peripheral edema. Peripheral pulses diminished bilaterally, right lower extremity with chronic vascular changes, no acute ischemic findings. permcath line in place. Neurologic:?Alert and oriented ?3. No focal deficits. Skin:?Warm and dry. No rash. Vital Signs: Vital Signs: Last Vital Signs Temp 97.8 F 02/20/25 11:39 Pulse 90 02/20/25 11:39 Resp 20 02/20/25 11:39 BP 126/71 02/20/25 11:39 Pulse Ox 99 02/20/25 11:39 O2 Del Method Room Air 02/20/25 11:39 O2 Flow Rate 2 02/17/25 08:45 BMI result Body Mass Index 25.8 Objective Data Active Medications Acetaminophen (Acetaminophen 325 Mg Tablet) 650 mg PO Q6H PRN PRN Reason: Pain, Mild 1-3,fever,headache Last Admin: 02/17/25 16:51 Dose: 650 mg Documented By: MAT Albuterol Sulfate (Albuterol Sulfate 90 Mcg 8 Gm Inhaler) 2 puff INHALE Q6H PRN PRN Reason: Muscle Spasm Dextrose (Dextrose 50 % 25 Gm/50 Ml Syringe) 25 gm IVPUSH Q15M PRN; Protocol PRN Reason: per Hypoglycemia Standing Ord. Heparin Sodium (Porcine) (Heparin Sodium,Porcine 5,000 Unit/Ml Vial) 5,000 unit SUBCUT Q8H [facility] On Hold: 02/16/25 07:38 Last Admin: 02/16/25 06:21 Dose: Not Given Documented By: RAMÓN Non-Admin Reason: Patient Condition Contraindication Hydromorphone HCl (Hydromorphone Hcl 1 Mg/Ml Syringe) 0.25 mg IVPUSH Q4H PRN; Protocol PRN Reason: Pain, Severe (Pain Scale 7-10) Last Admin: 02/18/25 12:12 Dose: 0.25 mg Documented By: NAVNEET Insulin Human Lispro (Insulin Lispro 100 Unit/Ml 3 Ml Vial) 0 unit SUBCUT QIDACHS [facility]; Protocol Last Admin: 02/20/25 11:43 Dose: Not Given Documented By: HÉCTOR Non-Admin Reason: No Insulin Coverage Omeprazole (Omeprazole 20 Mg Capsule.Dr) 20 mg PO DAILY@0630 [facility] Last Admin: 02/20/25 06:46 Dose: 20 mg Documented By: ALLISON Ondansetron HCl (Ondansetron Hcl 4 Mg/2 Ml Vial) 4 mg IVPUSH Q8H PRN PRN Reason: Nausea and Vomiting Sodium Chloride (0.9 % Sodium Chloride Flush 3 Ml Syringe) 3 ml IVFLUSH QSHIFT [facility] Last Admin: 02/20/25 09:53 Dose: Not Given Documented By: HÉCTOR Non-Admin Reason: Off unit: Dialysis Zolpidem Tartrate (Zolpidem Tartrate 5 Mg Tablet) 5 mg PO BEDTIME PRN PRN Reason: Insomnia Last Admin: 02/19/25 23:13 Dose: 5 mg Documented By: ALLISON Comments: requested for sleep Labs 02/20/25 12:31 02/19/25 06:14 Labs: Laboratory Results - last 24 hr 02/14/25 02/19/25 02/19/25 12:36 16:12 20:13 MCV MCH MCHC RDW Plt Count MPV Immature Gran % (Auto) Neut % (Auto) Lymph % (Auto) Hinds % (Auto) Eos % (Auto) Baso % (Auto) Lymph # (Auto) Hinds # (Auto) Eos # (Auto) Baso # (Auto) Abs Immat Gran (auto) Absolute Neuts (auto) Absolute Nucleated RBC Nucleated RBC % (auto) POC Glucose 108 102 IgG Total 723 IgA Total 578 H IgM 165 LIGIA Interpretation SEE NOTE 02/20/25 02/20/25 02/20/25 07:05 11:11 12:31 MCV 86.9 MCH 28.9 MCHC 33.2 RDW 17.2 H Plt Count 230 MPV 9.9 Immature Gran % (Auto) 1.3 H Neut % (Auto) 77.3 H Lymph % (Auto) 9.4 L Hinds % (Auto) 6.6 Eos % (Auto) 4.9 H Baso % (Auto) 0.5 Lymph # (Auto) 1.0 L Hinds # (Auto) 0.7 Eos # (Auto) 0.5 H Baso # (Auto) 0.1 Abs Immat Gran (auto) 0.14 H Absolute Neuts (auto) 8.4 H Absolute Nucleated RBC 0.000 Nucleated RBC % (auto) 0.0 POC Glucose 121 H 90 IgG Total IgA Total IgM LIGIA Interpretation Assessment and Plan (1) Generalized anxiety disorder: Status: Acute (2) Hypertension, essential, benign: Status: Acute (3) PAD (peripheral artery disease): Status: Acute (4) Venous insufficiency of both lower extremities: Status: Acute (5) Type 2 diabetes mellitus with unspecified complications: Status: Acute (6) Type 2 diabetes mellitus with hyperglycemia: Status: Acute (7) Diabetes mellitus: Status: Acute (8) Obesity (BMI 30-39.9): Status: Acute (9) GERD (gastroesophageal reflux disease): Status: Acute (10) Ureterolithiasis: Status: Acute (11) Bilateral renal stones: Status: Acute (12) Glomerulonephritis: Status: Acute (13) Acute renal failure: Status: Acute (14) Acute hyperkalemia: Status: Acute (15) Metabolic acidosis: Status: Acute (16) Rheumatoid arthritis: Status: Acute (17) Microcytic hypochromic anemia: Status: Acute (18) Neuropathy: Status: Acute (19) Diabetic neuropathy associated with diabetes mellitus due to underlying condition: Status: Acute (20) Weakness: Status: Acute Plan 65-year-old woman with rheumatoid arthritis, type 2 diabetes with neuropathy, hypertension, CAD, and PAD (recent RLE angiogram with tibial recanalization), admitted on 02/12/25 with malaise and found to have severe GABRIELLE with profound metabolic acidosis and hyperkalemia requiring ICU care and bicarbonate infusion, now improved with resolution of acidosis and hyperkalemia, downgraded from ICU to medical floor on 02/13/25. Acute Kidney Injury with Severe Metabolic Acidosis and Hyperkalemia (improving) Presented with profound GABRIELLE complicated by metabolic acidosis and life- threatening hyperkalemia. Etiology suspected to be ATN vs AIN. Imaging negative for obstruction; UA without evidence of infection. Required ICU admission and bicarbonate infusion with subsequent biochemical improvement. Currently making urine and clinically stable on the floor with nephrology following. Renal biopsy was performed 02/17/25 Unfortunately, another sample needs to be obtained, and further discussion with patient will be held to clarify Plan: * Continue close nephrology follow-up * Trend BMP daily to monitor renal function and electrolytes * Avoid nephrotoxins and IV contrast * Maintain euvolemia * Monitor urine output * Will require re-biopsy of kidneys to clarify underlying etiology * Nephrology reccs greatly appreciated Anemia Downtrend in hemoglobin during hospitalization, suspected secondary to hemodilution from IV fluid resuscitation. No evidence of active bleeding. Plan: * Trend CBC * Monitor for signs of bleeding * No transfusion indicated at this time * Transfuse for Hgb<8mg/dl * Type and screen to be ordered next blood draw Type 2 Diabetes Mellitus Diabetes complicated by neuropathy. Oral agents held in the setting of acute renal failure. Plan: * Hold metformin * Monitor blood glucose levels * Resume appropriate outpatient regimen once renal function stabilizes Transaminitis Mild elevation in liver enzymes with imaging showing fatty liver disease. Prior LFTs reportedly normal. Plan: * Trend LFTs during hospitalization * No acute intervention at this time History of Angioedema (resolved) Prior episode felt to be secondary to lisinopril; now resolved. Plan: * Avoid KELLEY inhibitors * Ensure lisinopril is discontinued at discharge Incidental Low-Attenuation Pancreatic Lesion CT imaging noted low-attenuation lesion in the pancreas requiring further characterization. Plan: * Recommend outpatient CT or MRI with IV contrast once renal function allows Peripheral Artery Disease (s/p recent angiogram and recanalization) On dual antiplatelet therapy prior to admission; antiplatelets currently held during hospitalization. Plan: * Continue to hold aspirin and clopidogrel * Consider resumption if hemoglobin remains stable and no bleeding concerns QUALITY METRICS * VTE Prophylaxis:?heparin 5000 * Code Status:?Full code * Diet:?renal Total time managing care of this patient today: 35 minutes. Quality Stroke Does the patient have a stroke diagnosis?: No VTE Prior VTE?: No VTE Risk Level:: Medical - moderate - high VTE Device Contraindication: Treatment Not Indicated VTE Drug Contraindication: N/A - Med Ordered
[2025-02-20 12:53] LABS: Anion Gap 16 (12-20); Blood Urea Nitrogen 15 mg/dL (9-16); Calcium 8.6 mg/dL (8.4-10.2); Carbon Dioxide 26 mmol/L (22-29); Chloride 97 mmol/L (96-108); Creatinine Clr Calc Pharmacy 21.9; Estimated Glomerular Filt Rate 18; Potassium 3.2 mmol/L (3.3-5.1); Sodium 136 mmol/L (135-145)
--- NOTE | 2025-02-20 14:51 | MHC.CM.PN ---
Pt. not ready to DC, she is to have a second biopsy today, CM to follow for DC needs.
[2025-02-20 15:50] LABS: Glucose, Whole Blood 113 mg/dL (60-115)
[2025-02-20 20:09] LABS: Glucose, Whole Blood 123 mg/dL (60-115)
[2025-02-20] MEDS: 0.9 % Sodium Chloride Flush 3 ML SYRINGE IVFLUSH ×2 (22:04)
[2025-02-20 23:08] LABS: Proteinase 3 PR3 Antibodies <1.0 AI
[2025-02-21 03:21] VITALS: BP 130/64; PULSE 92; RESP 18; TEMP 37.1; O2SAT 99; BMI 25.0
[2025-02-21 07:20] VITALS: BP 119/71; PULSE 99; RESP 18; TEMP 37.2; O2SAT 97
[2025-02-21 07:52] LABS: Glucose, Whole Blood 119 mg/dL (60-115)
[2025-02-21 11:20] VITALS: BP 122/69; PULSE 85; RESP 18; TEMP 36.3; O2SAT 100
[2025-02-21 11:48] LABS: Glucose, Whole Blood 113 mg/dL (60-115)
[2025-02-21 15:52] VITALS: BP 122/59; PULSE 84; RESP 18; TEMP 37.1; O2SAT 98
--- NOTE | 2025-02-21 16:26 | P.PNIM_ITS ---
Subjective Subjective Date of Service: 02/21/25 Interval History: No new complaints or issues today. Plan for renal biopsy repeat on Sunday Review of Systems Review of Systems: Yes all other systems are reviewed and are negative Physical Exam 2 Exam: Exam: General:?Awake, alert, no acute distress. Appears fatigued but comfortable. HEENT:?Normocephalic, atraumatic. Mucous membranes moist. Neck:?Supple, no JVD. Cardiovascular:?Regular rate and rhythm. No murmurs, rubs, or gallops. Respiratory:?Clear to auscultation bilaterally. No wheezes, rales, or rhonchi. No increased work of breathing. Abdomen:?Soft, non-tender, non-distended. Bowel sounds present. Extremities:?No peripheral edema. Peripheral pulses diminished bilaterally, right lower extremity with chronic vascular changes, no acute ischemic findings. permcath line in place. Neurologic:?Alert and oriented ?3. No focal deficits. Skin:?Warm and dry. No rash. Vital Signs: Vital Signs: Last Vital Signs Temp 98.7 F 02/21/25 15:52 Pulse 84 02/21/25 15:52 Resp 18 02/21/25 15:52 BP 122/59 L 02/21/25 15:52 Pulse Ox 98 02/21/25 15:52 O2 Del Method Room Air 02/21/25 15:52 O2 Flow Rate 2 02/17/25 08:45 BMI result Body Mass Index 25.0 Objective Data Active Medications Acetaminophen (Acetaminophen 325 Mg Tablet) 650 mg PO Q6H PRN PRN Reason: Pain, Mild 1-3,fever,headache Last Admin: 02/21/25 13:39 Dose: 650 mg Documented By: HÉCTOR Albuterol Sulfate (Albuterol Sulfate 90 Mcg 8 Gm Inhaler) 2 puff INHALE Q6H PRN PRN Reason: Muscle Spasm Dextrose (Dextrose 50 % 25 Gm/50 Ml Syringe) 25 gm IVPUSH Q15M PRN; Protocol PRN Reason: per Hypoglycemia Standing Ord. Heparin Sodium (Porcine) (Heparin Sodium,Porcine 5,000 Unit/Ml Vial) 5,000 unit SUBCUT Q8H IAN On Hold: 02/16/25 07:38 Last Admin: 02/16/25 06:21 Dose: Not Given Documented By: RAMÓN Non-Admin Reason: Patient Condition Contraindication Hydromorphone HCl (Hydromorphone Hcl 1 Mg/Ml Syringe) 0.25 mg IVPUSH Q4H PRN; Protocol PRN Reason: Pain, Severe (Pain Scale 7-10) Last Admin: 02/18/25 12:12 Dose: 0.25 mg Documented By: NAVNEET Insulin Human Lispro (Insulin Lispro 100 Unit/Ml 3 Ml Vial) 0 unit SUBCUT QIDACHS [facility]; Protocol Last Admin: 02/21/25 12:01 Dose: Not Given Documented By: HÉCTOR Non-Admin Reason: No Insulin Coverage Omeprazole (Omeprazole 20 Mg Capsule.Dr) 20 mg PO DAILY@0630 [facility] Last Admin: 02/21/25 05:29 Dose: 20 mg Documented By: ERAL Ondansetron HCl (Ondansetron Hcl 4 Mg/2 Ml Vial) 4 mg IVPUSH Q8H PRN PRN Reason: Nausea and Vomiting Last Admin: 02/21/25 09:54 Dose: 4 mg Documented By: HÉCTOR Senna (Sennosides 8.6 Mg Tablet) 8.6 mg PO DAILY PRN PRN Reason: Constipation Last Admin: 02/21/25 13:39 Dose: 8.6 mg Documented By: HÉCTOR Sodium Chloride (0.9 % Sodium Chloride Flush 3 Ml Syringe) 3 ml IVFLUSH [facility] Last Admin: 02/21/25 09:05 Dose: Not Given Documented By: HÉCTOR Non-Admin Reason: Med already given Zolpidem Tartrate (Zolpidem Tartrate 5 Mg Tablet) 5 mg PO BEDTIME PRN PRN Reason: Insomnia Last Admin: 02/20/25 22:03 Dose: 5 mg Documented By: EARL Labs 02/20/25 12:31 02/20/25 12:31 Labs: Laboratory Results - last 24 hr 02/14/25 02/20/25 02/21/25 12:36 20:02 07:48 POC Glucose 123 H 119 H Proteinase 3 (PR3) Ab <1.0 Myeloperoxidase Ab <1.0 02/21/25 11:45 POC Glucose 113 Proteinase 3 (PR3) Ab Myeloperoxidase Ab Assessment and Plan (1) Generalized anxiety disorder: Status: Acute (2) Hypertension, essential, benign: Status: Acute (3) Essential hypertension: Status: Acute (4) Atherosclerotic cardiovascular disease: Status: Acute (5) PAD (peripheral artery disease): Status: Acute (6) Venous insufficiency of both lower extremities: Status: Acute (7) Type 2 diabetes mellitus with unspecified complications: Status: Acute (8) Type 2 diabetes mellitus with hyperglycemia: Status: Acute (9) Obesity (BMI 30-39.9): Status: Acute (10) Acute renal failure: Status: Acute (11) Glomerulonephritis: Status: Acute (12) Acute hyperkalemia: Status: Acute (13) Metabolic acidosis: Status: Acute (14) Rheumatoid arthritis: Status: Acute Plan 65-year-old woman with rheumatoid arthritis, type 2 diabetes with neuropathy, hypertension, CAD, and PAD (recent RLE angiogram with tibial recanalization), admitted on 02/12/25 with malaise and found to have severe GABRIELLE with profound metabolic acidosis and hyperkalemia requiring ICU care and bicarbonate infusion, now improved with resolution of acidosis and hyperkalemia, downgraded from ICU to medical floor on 02/13/25. Acute Kidney Injury with Severe Metabolic Acidosis and Hyperkalemia (improving) Presented with profound GABRIELLE complicated by metabolic acidosis and life- threatening hyperkalemia. Etiology suspected to be ATN vs AIN. Imaging negative for obstruction; UA without evidence of infection. Required ICU admission and bicarbonate infusion with subsequent biochemical improvement. Currently making urine and clinically stable on the floor with nephrology following. Renal biopsy was performed 02/17/25 Unfortunately, another sample needs to be obtained, and further discussion with patient will be held to clarify Plan: * Continue close nephrology follow-up * Trend BMP daily to monitor renal function and electrolytes * Avoid nephrotoxins and IV contrast * Maintain euvolemia * Monitor urine output * Will require re-biopsy of kidneys to clarify underlying etiology * Nephrology reccs greatly appreciated Anemia Downtrend in hemoglobin during hospitalization, suspected secondary to hemodilution from IV fluid resuscitation. No evidence of active bleeding. Plan: * Trend CBC * Monitor for signs of bleeding * No transfusion indicated at this time * Transfuse for Hgb<8mg/dl * Type and screen to be ordered next blood draw Type 2 Diabetes Mellitus Diabetes complicated by neuropathy. Oral agents held in the setting of acute renal failure. Plan: * Hold metformin * Monitor blood glucose levels * Resume appropriate outpatient regimen once renal function stabilizes Transaminitis Mild elevation in liver enzymes with imaging showing fatty liver disease. Prior LFTs reportedly normal. Plan: * Trend LFTs during hospitalization * No acute intervention at this time History of Angioedema (resolved) Prior episode felt to be secondary to lisinopril; now resolved. Plan: * Avoid KELLEY inhibitors * Ensure lisinopril is discontinued at discharge Incidental Low-Attenuation Pancreatic Lesion CT imaging noted low-attenuation lesion in the pancreas requiring further characterization. Plan: * Recommend outpatient CT or MRI with IV contrast once renal function allows Peripheral Artery Disease (s/p recent angiogram and recanalization) On dual antiplatelet therapy prior to admission; antiplatelets currently held during hospitalization. Plan: * Continue to hold aspirin and clopidogrel * Consider resumption if hemoglobin remains stable and no bleeding concerns QUALITY METRICS * VTE Prophylaxis:?heparin 5000 * Code Status:?Full code * Diet:?renal Total time managing care of this patient today: 45 minutes. Quality Stroke Does the patient have a stroke diagnosis?: No VTE Prior VTE?: No VTE Risk Level:: Medical - moderate - high VTE Device Contraindication: Treatment Not Indicated VTE Drug Contraindication: N/A - Med Ordered
[2025-02-21 16:27] LABS: Glucose, Whole Blood 126 mg/dL (60-115)
[2025-02-21 19:22] LABS: Glucose, Whole Blood 120 mg/dL (60-115)
[2025-02-21 19:38] VITALS: BP 147/73; PULSE 81; RESP 18; TEMP 36.2; O2SAT 100
[2025-02-21 23:43] VITALS: BP 138/60; PULSE 86; RESP 16; TEMP 36.5; O2SAT 100
[2025-02-22 03:28] VITALS: BP 133/68; PULSE 89; RESP 18; TEMP 36.7; O2SAT 97
[2025-02-22 06:00] VITALS: BMI 24.6
[2025-02-22 07:46] LABS: Glucose, Whole Blood 125 mg/dL (60-115)
[2025-02-22 08:00] VITALS: BP 107/64; PULSE 94; RESP 20; TEMP 36.1; O2SAT 96
[2025-02-22] MEDS: 0.9 % Sodium Chloride Flush 3 ML SYRINGE IVFLUSH ×3 (09:09→22:21)
[2025-02-22 10:49] LABS: Hematocrit 28.5 % (37.0-47.0); Hemoglobin 9.4 g/dl (12.0-16.0); Mean Corpuscular HGB Conc 33.0 g/dl (31.0-35.0); Mean Corpuscular Hemoglobin 28.4 pg (27.0-33.0); Mean Corpuscular Volume 86.1 fL (80.0-98.0); NRBC Abs Auto 0.000 X10*3/uL (0.0-0.012); NRBC Pct Auto 0.0 /100WBC (0.0-0.2); Platelet Count 268 X10*3/uL (160-400); Red Blood Count 3.31 X10*6/uL (4.20-5.50); White Blood Count 11.1 X10*3/uL (4.8-10.8)
[2025-02-22 11:34] LABS: Glucose, Whole Blood 125 mg/dL (60-115)
[2025-02-22 12:00] VITALS: BP 122/66; PULSE 88; RESP 18; TEMP 36.1; O2SAT 100
[2025-02-22 12:00] LABS: Anion Gap 21 (12-20); Blood Urea Nitrogen 39 mg/dL (9-16); Calcium 9.0 mg/dL (8.4-10.2); Carbon Dioxide 22 mmol/L (22-29); Chloride 91 mmol/L (96-108); Creatinine Clr Calc Pharmacy 8.2; Estimated Glomerular Filt Rate 7; Potassium 3.7 mmol/L (3.3-5.1); Sodium 130 mmol/L (135-145)
--- NOTE | 2025-02-22 14:26 | P.PNIM_ITS ---
Subjective Subjective Date of Service: 02/22/25 Interval History: Asymptomatic Reports some reduction in her urinary output compared to yesterday Creatinine returning at 6.0 last 2.4 and prior to that was 5.6. Review of Systems Review of Systems: Yes all other systems are reviewed and are negative Physical Exam 2 Exam: Exam: General:?Awake, alert, no acute distress. Appears fatigued but comfortable. HEENT:?Normocephalic, atraumatic. Mucous membranes moist. Neck:?Supple, no JVD. Cardiovascular:?Regular rate and rhythm. No murmurs, rubs, or gallops. Respiratory:?Clear to auscultation bilaterally. No wheezes, rales, or rhonchi. No increased work of breathing. Abdomen:?Soft, non-tender, non-distended. Bowel sounds present. Extremities:?No peripheral edema. Peripheral pulses diminished bilaterally, right lower extremity with chronic vascular changes, no acute ischemic findings. permcath line in place. Neurologic:?Alert and oriented ?3. No focal deficits. Skin:?Warm and dry. No rash. Vital Signs: Vital Signs: Last Vital Signs Temp 96.9 F 02/22/25 12:00 Pulse 88 02/22/25 12:00 Resp 18 02/22/25 12:00 BP 122/66 02/22/25 12:00 Pulse Ox 100 02/22/25 12:00 O2 Del Method Room Air 02/22/25 12:00 O2 Flow Rate 2 02/17/25 08:45 BMI result Body Mass Index 24.6 Objective Data Active Medications Acetaminophen (Acetaminophen 325 Mg Tablet) 650 mg PO Q6H PRN PRN Reason: Pain, Mild 1-3,fever,headache Last Admin: 02/21/25 13:39 Dose: 650 mg Documented By: HÉCTOR Albuterol Sulfate (Albuterol Sulfate 90 Mcg 8 Gm Inhaler) 2 puff INHALE Q6H PRN PRN Reason: Muscle Spasm Dextrose (Dextrose 50 % 25 Gm/50 Ml Syringe) 25 gm IVPUSH Q15M PRN; Protocol PRN Reason: per Hypoglycemia Standing Ord. Heparin Sodium (Porcine) (Heparin Sodium,Porcine 5,000 Unit/Ml Vial) 5,000 unit SUBCUT Q8H IAN On Hold: 02/16/25 07:38 Last Admin: 02/16/25 06:21 Dose: Not Given Documented By: RAMÓN Non-Admin Reason: Patient Condition Contraindication Insulin Human Lispro (Insulin Lispro 100 Unit/Ml 3 Ml Vial) 0 unit SUBCUT QIDACHS [facility]; Protocol Last Admin: 02/22/25 11:39 Dose: Not Given Documented By: NICHOLAS Non-Admin Reason: No Insulin Coverage Omeprazole (Omeprazole 20 Mg Capsule.Dr) 20 mg PO DAILY@0630 [facility] Last Admin: 02/22/25 06:34 Dose: 20 mg Documented By: PADDY Ondansetron HCl (Ondansetron Hcl 4 Mg/2 Ml Vial) 4 mg IVPUSH Q8H PRN PRN Reason: Nausea and Vomiting Last Admin: 02/21/25 09:54 Dose: 4 mg Documented By: HÉCTOR Senna (Sennosides 8.6 Mg Tablet) 8.6 mg PO DAILY PRN PRN Reason: Constipation Last Admin: 02/21/25 13:39 Dose: 8.6 mg Documented By: HÉCTOR Sodium Chloride (0.9 % Sodium Chloride Flush 3 Ml Syringe) [facility] Last Admin: 02/22/25 09:09 Dose: 3 ml Documented By: NICHOLAS Zolpidem Tartrate (Zolpidem Tartrate 5 Mg Tablet) 5 mg PO BEDTIME PRN PRN Reason: Insomnia Last Admin: 02/21/25 22:41 Dose: 5 mg Documented By: PADDY Labs 02/22/25 10:38 02/22/25 10:38 Labs: Laboratory Results - last 24 hr 02/21/25 02/21/25 02/22/25 16:20 19:18 07:32 MCV MCH MCHC RDW Plt Count MPV Absolute Nucleated RBC Nucleated RBC % (auto) Anion Gap Estim Creat Clear Calc Estimated GFR POC Glucose 126 H 120 H 125 H Random Glucose Calcium 02/22/25 02/22/25 10:38 11:17 MCV 86.1 MCH 28.4 MCHC 33.0 RDW 17.2 H Plt Count 268 MPV 9.5 Absolute Nucleated RBC 0.000 Nucleated RBC % (auto) 0.0 Anion Gap 21 H Estim Creat Clear Calc 8.2 Estimated GFR 7 POC Glucose 125 H Random Glucose 150 H Calcium 9.0 Assessment and Plan (1) Generalized anxiety disorder: Status: Acute (2) Essential hypertension: Status: Acute (3) Atherosclerotic cardiovascular disease: Status: Acute (4) Atrial arrhythmia: Status: Acute (5) PAD (peripheral artery disease): Status: Acute (6) Type 2 diabetes mellitus with unspecified complications: Status: Acute (7) Type 2 diabetes mellitus with hyperglycemia: Status: Acute (8) Obesity (BMI 30-39.9): Status: Acute (9) Glomerulonephritis: Status: Acute (10) Acute renal failure: Status: Acute (11) Acute hyperkalemia: Status: Acute (12) Metabolic acidosis: Status: Acute (13) Microcytic hypochromic anemia: Status: Acute (14) Rheumatoid arthritis: Status: Acute (15) Diabetic neuropathy associated with diabetes mellitus due to underlying condition: Status: Acute Plan 65-year-old woman with rheumatoid arthritis, type 2 diabetes with neuropathy, hypertension, CAD, and PAD (recent RLE angiogram with tibial recanalization), admitted on 02/12/25 with malaise and found to have severe GABRIELLE with profound metabolic acidosis and hyperkalemia requiring ICU care and bicarbonate infusion, now improved with resolution of acidosis and hyperkalemia, downgraded from ICU to medical floor on 02/13/25. Acute Kidney Injury with Severe Metabolic Acidosis and Hyperkalemia (improving) Presented with profound GABRIELLE complicated by metabolic acidosis and life- threatening hyperkalemia. Etiology suspected to be ATN vs AIN. Imaging negative for obstruction; UA without evidence of infection. Required ICU admission and bicarbonate infusion with subsequent biochemical improvement. Currently making urine and clinically stable on the floor with nephrology following. Renal biopsy was performed 02/17/25 Unfortunately, another sample needs to be obtained, and further discussion with patient will be held to clarify - planned for 02/23/2025 Plan: * Continue close nephrology follow-up * Trend BMP daily to monitor renal function and electrolytes * Avoid nephrotoxins and IV contrast * Maintain euvolemia * Monitor urine output * Will require re-biopsy of kidneys to clarify underlying etiology 02/23/25 * HOLD heparin prior to biopsy * NPO midnight * Nephrology reccs greatly appreciated Anemia Downtrend in hemoglobin during hospitalization, suspected secondary to hemodilution from IV fluid resuscitation. No evidence of active bleeding. Plan: * Trend CBC * Monitor for signs of bleeding * No transfusion indicated at this time * Transfuse for Hgb<8mg/dl * Type and screen to be ordered next blood draw Type 2 Diabetes Mellitus Diabetes complicated by neuropathy. Oral agents held in the setting of acute renal failure. Plan: * Hold metformin * Monitor blood glucose levels * Resume appropriate outpatient regimen once renal function stabilizes Transaminitis Mild elevation in liver enzymes with imaging showing fatty liver disease. Prior LFTs reportedly normal. Plan: * Trend LFTs during hospitalization * No acute intervention at this time History of Angioedema (resolved) Prior episode felt to be secondary to lisinopril; now resolved. Plan: * Avoid KELLEY inhibitors * Ensure lisinopril is discontinued at discharge Incidental Low-Attenuation Pancreatic Lesion CT imaging noted low-attenuation lesion in the pancreas requiring further characterization. Plan: * Recommend outpatient CT or MRI with IV contrast once renal function allows Peripheral Artery Disease (s/p recent angiogram and recanalization) On dual antiplatelet therapy prior to admission; antiplatelets currently held during hospitalization. Plan: * Continue to hold aspirin and clopidogrel * Consider resumption if hemoglobin remains stable and no bleeding concerns QUALITY METRICS * VTE Prophylaxis:?heparin 5000 - HELD * Code Status:?Full code - NPO midnight * Diet:?renal Total time managing care of this patient today: 45 minutes. Quality Stroke Does the patient have a stroke diagnosis?: No VTE Prior VTE?: No VTE Risk Level:: Medical - moderate - high VTE Device Contraindication: Treatment Not Indicated VTE Drug Contraindication: N/A - Med Ordered
--- NOTE | 2025-02-22 15:29 | P.PNNP_ITS ---
Subjective Subjective Date of Service: 02/22/25 Interval history: No new events overnight, remains oliguric. Poor renal clearance Physical Exam 2 Vital Signs: Vital Signs: Last Vital Signs Temp 96.9 F 02/22/25 12:00 Pulse 88 02/22/25 12:00 Resp 18 02/22/25 12:00 BP 122/66 02/22/25 12:00 Pulse Ox 100 02/22/25 12:00 O2 Del Method Room Air 02/22/25 12:00 O2 Flow Rate 2 02/17/25 08:45 BMI result Body Mass Index 24.6 General: not in any acute distress, ill appearing Nutritional Appearance: well nourished and overweight Eyes: appearance normal, both eyes and all related structures Neck: No lymphadenopathy, no thyromegaly Resp: bilateral air entry equal, no added sounds present Cardio: Regular rate, regular rhythm; normal S1-S2 GI: soft, nontender, no guarding, no hepatosplenomegaly : bladder normal to inspection, bladder normal to palpation, no renal angle tenderness Skin: no rashes or lesions noted and elasticity normal Neuro: alert, oriented x 3, moves all extremities Objective Data Labs 02/22/25 10:38 02/22/25 10:38 Labs: Laboratory Results - last 24 hr 02/21/25 02/21/25 02/22/25 16:20 19:18 07:32 WBC RBC Hgb Hct MCV MCH MCHC RDW Plt Count MPV Absolute Nucleated RBC Nucleated RBC % (auto) Sodium Potassium Chloride Carbon Dioxide Anion Gap BUN Creatinine Estim Creat Clear Calc Estimated GFR POC Glucose 126 H 120 H 125 H Random Glucose Calcium 02/22/25 02/22/25 10:38 11:17 WBC 11.1 H RBC 3.31 L Hgb 9.4 L Hct 28.5 L MCV 86.1 MCH 28.4 MCHC 33.0 RDW 17.2 H Plt Count 268 MPV 9.5 Absolute Nucleated RBC 0.000 Nucleated RBC % (auto) 0.0 Sodium 130 L Potassium 3.7 Chloride 91 L Carbon Dioxide 22 Anion Gap 21 H BUN 39 H Creatinine 6.34 H* Estim Creat Clear Calc 8.2 Estimated GFR 7 POC Glucose 125 H Random Glucose 150 H Calcium 9.0 Procedures Date of Service Date of Service: 02/22/25 Assessment & Plan Assessment and plan (1) Acute renal failure: Status: Acute (2) Metabolic acidosis: Status: Acute Plan : Acute kidney injury: Patient has GABRIELLE of unknown etiology for which she underwent renal biopsy yesterday which showed poor sampling; would need a repeat biopsy planned for tomorrow. Hold off on heparin tonight; NPO after midnight. Her UA showed 2+ protein, 3+ blood and 6-10 WBCs Patient received IV contrast for lower extremity angiogram on 01/28/2025, discussed delayed presentation might be unrelated. CT abdomen and pelvis showed bilateral small non obstructing renal calculi, no hydronephrosis. Underwent session of hemodialysis on Sunday, still has poor clearance we will need another session of dialysis tomorrow. Given that she has continued poor clearance despite some urine output can plan for a PermCath placement tomorrow unless morning BMP shows creatinine stabiliing or improving (below 7). Anemia of CKD: We will continue to closely monitor Hemoglobin 9.1, transfuse for hemoglobin less than 7 grams/deciliter Time Spent With Patient Time: Total time managing care of this patient today ____ minutes. Progress Note: Quality Stroke Does the patient have a stroke diagnosis?: No
[2025-02-22 16:00] VITALS: BP 115/63; PULSE 99; RESP 18; TEMP 36.2; O2SAT 98
[2025-02-22 16:08] LABS: Glucose, Whole Blood 115 mg/dL (60-115)
[2025-02-22 20:00] VITALS: BP 123/68; PULSE 86; RESP 20; TEMP 36.8; O2SAT 100
[2025-02-22 20:38] LABS: Glucose, Whole Blood 97 mg/dL (60-115)
[2025-02-23] VITALS (13 sets, daily range): BP systolic 102–134; BP diastolic 56–70; PULSE 60–104; RESP 12–25; TEMP 36.2–37.1; O2SAT 96–100; BMI 25.2
[2025-02-23 07:39] LABS: MANUAL DIFF FLAG NO
[2025-02-23 07:42] LABS: Hematocrit 25.3 % (37.0-47.0); Hemoglobin 8.5 g/dl (12.0-16.0); Imm Gran Abs Auto 0.17 X10*3/uL (0.00-0.03); Imm Gran Pct Auto 1.8 % (0.0-0.4); Lymphocytes Absolute Auto 1.2 X10*3/uL (1.2-4.9); Mean Corpuscular HGB Conc 33.6 g/dl (31.0-35.0); Mean Corpuscular Hemoglobin 28.7 pg (27.0-33.0); Mean Corpuscular Volume 85.5 fL (80.0-98.0); NRBC Abs Auto 0.000 X10*3/uL (0.0-0.012); NRBC Pct Auto 0.0 /100WBC (0.0-0.2); Platelet Count 227 X10*3/uL (160-400); Red Blood Count 2.96 X10*6/uL (4.20-5.50); White Blood Count 9.2 X10*3/uL (4.8-10.8)
[2025-02-23 07:46] LABS: Glucose, Whole Blood 108 mg/dL (60-115)
[2025-02-23 08:02] LABS: Anion Gap 17 (12-20); Blood Urea Nitrogen 45 mg/dL (9-16); Calcium 8.5 mg/dL (8.4-10.2); Carbon Dioxide 22 mmol/L (22-29); Chloride 90 mmol/L (96-108); Creatinine Clr Calc Pharmacy 7.1; Estimated Glomerular Filt Rate 6; Magnesium 2.0 mg/dL (1.6-2.6); Potassium 3.4 mmol/L (3.3-5.1); Sodium 126 mmol/L (135-145)
[2025-02-23 08:22] LABS: Anion Gap 17 (12-20); Blood Urea Nitrogen 43 mg/dL (9-16); Calcium 8.4 mg/dL (8.4-10.2); Carbon Dioxide 23 mmol/L (22-29); Chloride 90 mmol/L (96-108); Creatinine Clr Calc Pharmacy 7.1; Estimated Glomerular Filt Rate 6; Potassium 3.7 mmol/L (3.3-5.1); Sodium 126 mmol/L (135-145)
--- NOTE | 2025-02-23 09:05 | MHC.CM.PN ---
EMR REVIEWED. PLAN FOR PT TO HAVE REPEAT KIDNEY BIOPSY TODAY, PT HAS TEMP HD CATH AND MAY NEED OUPT HD AND WOULD NEED PERMANENT HD CATH PLACED PRIOR TO DC, CM WILL CONT TO FOLLOW DC NEEDS.
[2025-02-23 11:11] LABS: Glucose, Whole Blood 103 mg/dL (60-115)
--- NOTE | 2025-02-23 12:48 | W.PM.DNNEP ---
Subjective Subjective Date of Service: 02/23/25 This patient was seen during dialysis. Interval history: Underwent renal biopsy this morning Undergoing hemodialysis this afternoon Physical Exam Vital Signs: Vital Signs: Last Vital Signs Temp 97.5 F 02/23/25 11:15 Pulse 76 02/23/25 11:15 Resp 18 02/23/25 11:15 BP 119/65 02/23/25 11:15 Pulse Ox 98 02/23/25 11:15 O2 Del Method Room Air 02/23/25 11:15 O2 Flow Rate 2 02/23/25 09:05 BMI result Body Mass Index 25.2 General: not in any acute distress, ill appearing Nutritional Appearance: well nourished and overweight Eyes: appearance normal, both eyes and all related structures; Alignment and Position: alignment normal and position normal Neck: No lymphadenopathy, no thyromegaly Resp: bilateral air entry equal, no added sounds present Cardio: Regular rate, regular rhythm; Heart sounds: S1 normal heart sound present and S2 normal heart sound present GI: soft, nontender, no guarding, no hepatosplenomegaly : bladder normal to inspection, bladder normal to palpation, no renal angle tenderness Skin: no rashes or lesions noted and elasticity normal Neuro: alert, oriented x 3, moves all extremities Assessment & Plan Assessment and plan (1) Acute hyperkalemia: Status: Acute (2) Metabolic acidosis: Status: Acute (3) Anemia in CKD (chronic kidney disease): Status: Acute Plan Acute kidney injury: Patient has GABRIELLE of unknown etiology for which she underwent repeat renal biopsy this morning. Hold off on heparin tonight; NPO after midnight for Permcath placement tomorrow Her UA showed 2+ protein, 3+ blood and 6-10 WBCs Patient received IV contrast for lower extremity angiogram on 01/28/2025, discussed delayed presentation might be unrelated. CT abdomen and pelvis showed bilateral small non obstructing renal calculi, no hydronephrosis. Has some urine output showing some signs of recovery but still continues to have very poor renal clearance. Undergoing another session of dialysis this afternoon, possibly we would need dialysis for few weeks this has been explained to the family. Working on setting up outpatient dialysis for the patient. Plan to undergo PermCath placement tomorrow Anemia of CKD: Hemoglobin 8.5, we will start her on erythropoietin transfuse for hemoglobin less than 7 grams/deciliter Time Spent With Patient Time: Total time managing care of this patient today ____ minutes. Procedures Date of Service Date of Service: 02/23/25
--- NOTE | 2025-02-23 14:33 | P.PNIM_ITS ---
Subjective Subjective Date of Service: 02/23/25 Interval History: Repeat renal biopsy performed today by Interventional Radiology No complications Tomorrow, [facility] Review of Systems Review of Systems: Yes all other systems are reviewed and are negative Physical Exam 2 Exam: Exam: General:?Awake, alert, no acute distress. Appears fatigued but comfortable. HEENT:?Normocephalic, atraumatic. Mucous membranes moist. Neck:?Supple, no JVD. Cardiovascular:?Regular rate and rhythm. No murmurs, rubs, or gallops. Respiratory:?Clear to auscultation bilaterally. No wheezes, rales, or rhonchi. No increased work of breathing. Abdomen:?Soft, non-tender, non-distended. Bowel sounds present. Extremities:?No peripheral edema. Peripheral pulses diminished bilaterally, right lower extremity with chronic vascular changes, no acute ischemic findings. permcath line in place. Neurologic:?Alert and oriented ?3. No focal deficits. Skin:?Warm and dry. No rash. Vital Signs: Vital Signs: Last Vital Signs Temp 97.5 F 02/23/25 11:15 Pulse 76 02/23/25 11:15 Resp 18 02/23/25 11:15 BP 119/65 02/23/25 11:15 Pulse Ox 98 02/23/25 11:15 O2 Del Method Room Air 02/23/25 11:15 O2 Flow Rate 2 02/23/25 09:05 BMI result Body Mass Index 25.2 Objective Data Active Medications Acetaminophen (Acetaminophen 325 Mg Tablet) 650 mg PO Q6H PRN PRN Reason: Pain, Mild 1-3,fever,headache Last Admin: 02/23/25 05:54 Dose: 650 mg Documented By: SELIN Albuterol Sulfate (Albuterol Sulfate 90 Mcg 8 Gm Inhaler) 2 puff INHALE Q6H PRN PRN Reason: Muscle Spasm Dextrose (Dextrose 50 % 25 Gm/50 Ml Syringe) 25 gm IVPUSH Q15M PRN; Protocol PRN Reason: per Hypoglycemia Standing Ord. Epoetin Koko-epbx 3,000 unit/ (Epoetin Koko-epbx 2,000 unit) 5,000 unit SUBCUT MoWeFr@1645 [facility] Heparin Sodium (Porcine) (Heparin Sodium,Porcine 5,000 Unit/Ml Vial) 5,000 unit SUBCUT Q8H [facility] On Hold: 02/16/25 07:38 Last Admin: 02/16/25 06:21 Dose: Not Given Documented By: RAMÓN Non-Admin Reason: Patient Condition Contraindication Insulin Human Lispro (Insulin Lispro 100 Unit/Ml 3 Ml Vial) 0 unit SUBCUT QIDACHS [facility]; Protocol Last Admin: 02/23/25 11:36 Dose: Not Given Documented By: PHUC Non-Admin Reason: No Insulin Coverage Omeprazole (Omeprazole 20 Mg Capsule.Dr) 20 mg PO DAILY@0630 [facility] Last Admin: 02/23/25 05:54 Dose: 20 mg Documented By: SELIN Ondansetron HCl (Ondansetron Hcl 4 Mg/2 Ml Vial) 4 mg IVPUSH Q8H PRN PRN Reason: Nausea and Vomiting Last Admin: 02/23/25 05:59 Dose: 4 mg Documented By: SELIN Senna (Sennosides 8.6 Mg Tablet) 8.6 mg PO DAILY PRN PRN Reason: Constipation Last Admin: 02/21/25 13:39 Dose: 8.6 mg Documented By: HÉCTOR Sodium Chloride (0.9 % Sodium Chloride Flush 3 Ml Syringe) 3 ml IVFLUSH [facility] Last Admin: 02/23/25 11:35 Dose: Not Given Documented By: PHUC Non-Admin Reason: Patient off unit Zolpidem Tartrate (Zolpidem Tartrate 5 Mg Tablet) 5 mg PO BEDTIME PRN PRN Reason: Insomnia Last Admin: 02/22/25 22:20 Dose: 5 mg Documented By: SELIN Labs 02/23/25 06:45 02/23/25 08:01 Labs: Laboratory Results - last 24 hr 02/22/25 02/22/25 02/23/25 15:47 20:29 06:45 MCV 85.5 MCH 28.7 MCHC 33.6 RDW 17.0 H Plt Count 227 MPV 10.6 Immature Gran % (Auto) 1.8 H Neut % (Auto) 70.2 Lymph % (Auto) 12.4 L Preston % (Auto) 9.4 Eos % (Auto) 5.7 H Baso % (Auto) 0.5 Lymph # (Auto) 1.2 Preston # (Auto) 0.9 Eos # (Auto) 0.5 H Baso # (Auto) 0.1 Abs Immat Gran (auto) 0.17 H Absolute Neuts (auto) 6.5 Absolute Nucleated RBC 0.000 Nucleated RBC % (auto) 0.0 Anion Gap 17 Estim Creat Clear Calc 7.1 Estimated GFR 6 POC Glucose 115 97 Random Glucose 106 Calcium 8.5 Magnesium 2.0 02/23/25 02/23/25 02/23/25 07:42 08:01 11:08 MCV MCH MCHC RDW Plt Count MPV Immature Gran % (Auto) Neut % (Auto) Lymph % (Auto) Preston % (Auto) Eos % (Auto) Baso % (Auto) Lymph # (Auto) Preston # (Auto) Eos # (Auto) Baso # (Auto) Abs Immat Gran (auto) Absolute Neuts (auto) Absolute Nucleated RBC Nucleated RBC % (auto) Anion Gap 17 Estim Creat Clear Calc 7.1 Estimated GFR 6 POC Glucose 108 103 Random Glucose 104 Calcium 8.4 Magnesium Assessment and Plan (1) Generalized anxiety disorder: Status: Acute (2) Hypertension, essential, benign: Status: Acute (3) Atherosclerotic cardiovascular disease: Status: Acute (4) PAD (peripheral artery disease): Status: Acute (5) Venous insufficiency of both lower extremities: Status: Acute (6) Type 2 diabetes mellitus with unspecified complications: Status: Acute (7) Type 2 diabetes mellitus with hyperglycemia: Status: Acute (8) Diabetes mellitus: Status: Acute (9) GERD (gastroesophageal reflux disease): Status: Acute (10) Acute renal failure: Status: Acute (11) Acute hyperkalemia: Status: Acute (12) Metabolic acidosis: Status: Acute (13) Glomerulonephritis: Status: Acute (14) Anemia in CKD (chronic kidney disease): Status: Acute (15) Rheumatoid arthritis: Status: Acute (16) Weakness: Status: Acute Plan 65-year-old woman with rheumatoid arthritis, type 2 diabetes with neuropathy, hypertension, CAD, and PAD (recent RLE angiogram with tibial recanalization), admitted on 02/12/25 with malaise and found to have severe GABRIELLE with profound metabolic acidosis and hyperkalemia requiring ICU care and bicarbonate infusion, now improved with resolution of acidosis and hyperkalemia, downgraded from ICU to medical floor on 02/13/25. Acute Kidney Injury with Severe Metabolic Acidosis and Hyperkalemia (improving) HD dependent Presented with profound GABRIELLE complicated by metabolic acidosis and life- threatening hyperkalemia. Etiology suspected to be ATN vs AIN. Imaging negative for obstruction; UA without evidence of infection. Required ICU admission and bicarbonate infusion with subsequent biochemical improvement. Currently making urine and clinically stable on the floor with nephrology following. Renal biopsy was performed 02/17/25 Unfortunately, another sample needs to be obtained Repeat renal biopsy performed 02/23/2025 Requires PermCath placement 02/24/2025 Plan: * Continue close nephrology follow-up * Trend BMP daily to monitor renal function and electrolytes * Avoid nephrotoxins and IV contrast * Maintain euvolemia * Monitor urine output * HOLD heparin * NPO midnight * Nephrology reccs greatly appreciated Anemia Downtrend in hemoglobin during hospitalization, suspected secondary to hemodilution from IV fluid resuscitation. No evidence of active bleeding. Plan: * Trend CBC * Monitor for signs of bleeding * No transfusion indicated at this time * Transfuse for Hgb<8mg/dl Type 2 Diabetes Mellitus Diabetes complicated by neuropathy. Oral agents held in the setting of acute renal failure. Plan: * Hold metformin * Monitor blood glucose levels * Resume appropriate outpatient regimen once renal function stabilizes Transaminitis Mild elevation in liver enzymes with imaging showing fatty liver disease. Prior LFTs reportedly normal. Plan: * Trend LFTs during hospitalization * No acute intervention at this time History of Angioedema (resolved) Prior episode felt to be secondary to lisinopril; now resolved. Plan: * Avoid KELLEY inhibitors * Ensure lisinopril is discontinued at discharge Incidental Low-Attenuation Pancreatic Lesion CT imaging noted low-attenuation lesion in the pancreas requiring further characterization. Plan: * Recommend outpatient CT or MRI with IV contrast once renal function allows Peripheral Artery Disease (s/p recent angiogram and recanalization) On dual antiplatelet therapy prior to admission; antiplatelets currently held during hospitalization. Plan: * Continue to hold aspirin and clopidogrel * Consider resumption if hemoglobin remains stable and no bleeding concerns QUALITY METRICS * VTE Prophylaxis:?heparin 5000 - HELD * Code Status:?Full code - NPO midnight * Diet:?renal Total time managing care of this patient today: 45 minutes. Quality Stroke Does the patient have a stroke diagnosis?: No VTE Prior VTE?: No VTE Risk Level:: Medical - moderate - high VTE Device Contraindication: Treatment Not Indicated VTE Drug Contraindication: N/A - Med Ordered
[2025-02-23 16:15] LABS: Glucose, Whole Blood 110 mg/dL (60-115)
[2025-02-23 20:34] LABS: Glucose, Whole Blood 96 mg/dL (60-115)
[2025-02-24] VITALS (13 sets, daily range): BP systolic 104–127; BP diastolic 51–73; PULSE 77–94; RESP 14–18; TEMP 36.2–37.2; O2SAT 98–100
[2025-02-24 08:42] LABS: Glucose, Whole Blood 110 mg/dL (60-115)
--- NOTE | 2025-02-24 10:21 | HO.PM.IMPN ---
Subjective Subjective Date of Service: 02/24/25 Interval History: Patient seen and examined at bedside this morning, in no acute respiratory distress, states that she is feeling okay, plans on permanent dialysis catheter placement later today. Review of Systems Review of Systems: Yes all other systems are reviewed and are negative Physical Exam Exam: Exam: General:?Awake, alert, no acute distress. Appears fatigued but comfortable. HEENT:?Normocephalic, atraumatic. Mucous membranes moist. Neck:?Supple, no JVD, right temp dialysis line in place Cardiovascular:?Regular rate and rhythm. No murmurs, rubs, or gallops. Respiratory:?Clear to auscultation bilaterally. No wheezes, rales, or rhonchi. No increased work of breathing. Abdomen:?Soft, non-tender, non-distended. Bowel sounds present. Extremities:?No peripheral edema. Peripheral pulses diminished bilaterally, right lower extremity with chronic vascular changes, no acute ischemic findings. permcath line in place. Neurologic:?Alert and oriented ?3. No focal deficits. Skin:?Warm and dry. No rash. Vital Signs: Vital Signs: Last Vital Signs Temp 98.9 F 02/24/25 07:46 Pulse 83 02/24/25 07:46 Resp 18 02/24/25 07:46 BP 112/58 L 02/24/25 07:46 Pulse Ox 98 02/24/25 07:46 O2 Del Method Room Air 02/24/25 07:46 O2 Flow Rate 2 02/23/25 09:05 BMI result Body Mass Index 25.2 Objective Data Active Medications Acetaminophen (Acetaminophen 325 Mg Tablet) 650 mg PO Q6H PRN PRN Reason: Pain, Mild 1-3,fever,headache Last Admin: 02/23/25 05:54 Dose: 650 mg Documented By: SELIN Albuterol Sulfate (Albuterol Sulfate 90 Mcg 8 Gm Inhaler) 2 puff INHALE Q6H PRN PRN Reason: Muscle Spasm Dextrose (Dextrose 50 % 25 Gm/50 Ml Syringe) 25 gm IVPUSH Q15M PRN; Protocol PRN Reason: per Hypoglycemia Standing Ord. Epoetin Koko-epbx 3,000 unit/ (Epoetin Koko-epbx 2,000 unit) 5,000 unit SUBCUT MoWeFr@4148 [facility] Last Admin: 02/23/25 23:00 Dose: Not Given Documented By: SELIN Non-Admin Reason: pt refused, education providede Heparin Sodium (Porcine) (Heparin Sodium,Porcine 5,000 Unit/Ml Vial) 5,000 unit SUBCUT Q8H [facility] On Hold: 02/16/25 07:38 Last Admin: 02/16/25 06:21 Dose: Not Given Documented By: RAMÓN Non-Admin Reason: Patient Condition Contraindication Insulin Human Lispro (Insulin Lispro 100 Unit/Ml 3 Ml Vial) 0 unit SUBCUT QIDACHS [facility]; Protocol Last Admin: 02/23/25 22:46 Dose: Not Given Documented By: SELIN Non-Admin Reason: No Insulin Coverage Omeprazole (Omeprazole 20 Mg Capsule.Dr) 20 mg PO DAILY@0630 [facility] Last Admin: 02/24/25 06:53 Dose: Not Given Documented By: SELIN Non-Admin Reason: Patient Refused Ondansetron HCl (Ondansetron Hcl 4 Mg/2 Ml Vial) 4 mg IVPUSH Q8H PRN PRN Reason: Nausea and Vomiting Last Admin: 02/23/25 05:59 Dose: 4 mg Documented By: SELIN Senna (Sennosides 8.6 Mg Tablet) 8.6 mg PO DAILY PRN PRN Reason: Constipation Last Admin: 02/21/25 13:39 Dose: 8.6 mg Documented By: HÉCTOR Sodium Chloride (0.9 % Sodium Chloride Flush 3 Ml Syringe) 3 ml IVFLUSH QSHIFT [facility] Last Admin: 02/24/25 01:07 Dose: Not Given Documented By: SELIN Non-Admin Reason: Previously Administered Zolpidem Tartrate (Zolpidem Tartrate 5 Mg Tablet) 5 mg PO BEDTIME PRN PRN Reason: Insomnia Last Admin: 02/23/25 22:58 Dose: 5 mg Documented By: SELIN Labs 02/23/25 06:45 02/23/25 08:01 Labs: Laboratory Results - last 24 hr 02/23/25 02/23/25 02/23/25 11:08 16:11 20:26 POC Glucose 103 110 96 02/24/25 07:22 POC Glucose 110 Assessment and Plan (1) Generalized anxiety disorder: Status: Acute (2) Hypertension, essential, benign: Status: Acute (3) Atherosclerotic cardiovascular disease: Status: Acute (4) PAD (peripheral artery disease): Status: Acute (5) Venous insufficiency of both lower extremities: Status: Acute (6) Type 2 diabetes mellitus with hyperglycemia: Status: Acute (7) GERD (gastroesophageal reflux disease): Status: Acute (8) Acute renal failure: Status: Acute (9) Acute hyperkalemia: Status: Acute (10) Metabolic acidosis: Status: Acute (11) Glomerulonephritis: Status: Acute (12) Anemia in CKD (chronic kidney disease): Status: Acute (13) Rheumatoid arthritis: Status: Acute (14) Weakness: Status: Acute Plan 65-year-old woman with rheumatoid arthritis, type 2 diabetes with neuropathy, hypertension, CAD, and PAD (recent RLE angiogram with tibial recanalization), admitted on 02/12/25 with malaise and found to have severe GABRIELLE with profound metabolic acidosis and hyperkalemia requiring ICU care and bicarbonate infusion, now improved with resolution of acidosis and hyperkalemia, downgraded from ICU to medical floor on 02/13/25. Plans on permament dialysis placement on 02/24 Acute Kidney Injury with Severe Metabolic Acidosis and Hyperkalemia (improving) HD dependent Presented with profound GABRIELLE complicated by metabolic acidosis and life-threatening hyperkalemia. Etiology suspected to be ATN vs AIN. Imaging negative for obstruction; UA without evidence of infection. Required ICU admission and bicarbonate infusion with subsequent biochemical improvement. Currently making urine and clinically stable on the floor with nephrology following. Renal biopsy was performed 02/17/25 Unfortunately, another sample needs to be obtained Repeat renal biopsy performed 02/23/2025 Requires PermCath placement 02/24/2025 Plan: Continue close nephrology follow-up Trend BMP daily to monitor renal function and electrolytes Avoid nephrotoxins and IV contrast Maintain euvolemia Monitor urine output HOLD heparin continue NPO until after permcath placement Nephrology reccs greatly appreciated Anemia Downtrend in hemoglobin during hospitalization, suspected secondary to hemodilution from IV fluid resuscitation. No evidence of active bleeding. Plan: Trend CBC Monitor for signs of bleeding No transfusion indicated at this time Transfuse for Hgb<8mg/dl Type 2 Diabetes Mellitus Diabetes complicated by neuropathy. Oral agents held in the setting of acute renal failure. Plan: Hold metformin Monitor blood glucose levels Resume appropriate outpatient regimen once renal function stabilizes Transaminitis Mild elevation in liver enzymes with imaging showing fatty liver disease. Prior LFTs reportedly normal. Plan: Trend LFTs during hospitalization No acute intervention at this time History of Angioedema (resolved) Prior episode felt to be secondary to lisinopril; now resolved. Plan: Avoid KELLEY inhibitors Ensure lisinopril is discontinued at discharge Incidental Low-Attenuation Pancreatic Lesion CT imaging noted low-attenuation lesion in the pancreas requiring further characterization. Plan: Recommend outpatient CT or MRI with IV contrast once renal function allows Peripheral Artery Disease (s/p recent angiogram and recanalization) On dual antiplatelet therapy prior to admission; antiplatelets currently held during hospitalization. Plan: Continue to hold aspirin and clopidogrel Consider resumption if hemoglobin remains stable and no bleeding concerns QUALITY METR[employer] VTE Prophylaxis:?heparin 5000 - HELD Code Status:?Full code - NPO midnight Diet:?renal Total time managing care of this patient today: 45 minutes. Quality Stroke Does the patient have a stroke diagnosis?: No VTE Prior VTE?: No VTE Risk Level:: Medical - moderate - high VTE Device Contraindication: Treatment Not Indicated VTE Drug Contraindication: N/A - Med Ordered
[2025-02-24] MEDS: 0.9 % Sodium Chloride Flush 3 ML SYRINGE IVFLUSH ×2 (12:22→23:23)
[2025-02-24 12:48] LABS: Glucose, Whole Blood 91 mg/dL (60-115)
--- NOTE | 2025-02-24 15:28 | PM.PNNEP ---
Subjective Subjective Date of Service: 02/24/25 Interval history: Had PermCath placement this morning following which she had some pain. Physical Exam Vital Signs: Vital Signs: Last Vital Signs Temp 97.9 F 02/24/25 15:13 Pulse 86 02/24/25 15:13 Resp 18 02/24/25 15:13 BP 112/65 02/24/25 15:13 Pulse Ox 100 02/24/25 15:13 O2 Del Method Room Air 02/24/25 15:13 O2 Flow Rate 2 02/23/25 09:05 BMI result Body Mass Index 25.2 Objective Data Labs 02/23/25 06:45 02/23/25 08:01 Labs: Laboratory Results - last 24 hr 02/23/25 02/23/25 02/24/25 16:11 20:26 07:22 POC Glucose 110 96 110 02/24/25 12:44 POC Glucose 91 Procedures Date of Service Date of Service: 02/24/25 Assessment & Plan Assessment and plan (1) Acute renal failure: Status: Acute (2) Metabolic acidosis: Status: Acute Plan Acute kidney injury: Patient has GABRIELLE of unknown etiology for which she underwent repeat renal biopsy yesterday morning. Underwent Permcath placement this morning. Her UA showed 2+ protein, 3+ blood and 6-10 WBCs Patient received IV contrast for lower extremity angiogram on 01/28/2025, discussed delayed presentation might be unrelated. CT abdomen and pelvis showed bilateral small non obstructing renal calculi, no hydronephrosis. Has some urine output showing some signs of recovery but still continues to have very poor renal clearance. Explain her that she might need few weeks of outpatient renal replacement therapy before complete recovery, we will also look into the biopsy results and plan for any treatment changes based on the results. Explained to her that there will be an outpatient culinary manager following her labs and her clinical status to check for renal recovery. Once we have outpatient schedule set up we should be able to discharge her. Anemia of CKD: Hemoglobin 8.5, we will start her on erythropoietin transfuse for hemoglobin less than 7 grams/deciliter Time Spent With Patient Time: Total time managing care of this patient today ____ minutes. Progress Note: Quality Stroke Does the patient have a stroke diagnosis?: No
[2025-02-24 15:47] LABS: Glucose, Whole Blood 113 mg/dL (60-115)
[2025-02-24 19:55] LABS: Glucose, Whole Blood 117 mg/dL (60-115)
[2025-02-25 03:29] VITALS: BP 121/61; PULSE 79; RESP 16; TEMP 36.9; O2SAT 98
[2025-02-25 06:00] VITALS: BMI 28.2
[2025-02-25 08:00] VITALS: BP 107/63; PULSE 86; RESP 16; TEMP 36.5; O2SAT 99
[2025-02-25 09:25] LABS: Glucose, Whole Blood 120 mg/dL (60-115)
[2025-02-25] MEDS: 0.9 % Sodium Chloride Flush 3 ML SYRINGE IVFLUSH (09:27)
--- NOTE | 2025-02-25 10:44 | P.CDIM_ITS ---
PROVIDER RESPONSE TEXT: To clarify, the appropriate diagnosis supported by the clinical indicators: Acute QUERY TEXT: PHYSICIAN'S DOCUMENTATION REQUEST Date of Query: 02/25/2025 10:38 AM EST Patient Name: Isela Frausto Admit Date: 02/12/2025 Dear Roger Morejon MD, A review of the medical record indicates additional documentation may be needed. Please review below and update the documentation accordingly. Clinical Indicators: per Hospitalist progress note 02/24/25: metabolic acidosis required bicarbonate infusion Clarify which of the following accurately represents the acuity of the Metabolic acidosis. Possible options might include: Acute Acute on chronic Compensated Chronic stable condition Remission Other (explain) Clinically unable to determine (explain) Thank you, Audelia Lawrence RN Use of terms such as suspected, likely, concern for, or probable (associated with a specific diagnosis that is being evaluated, monitored, or treated as if it exists) are acceptable and can be coded in the inpatient setting, when documented at the time of discharge. Please use your independent medical judgment in providing your response. THIS QUERY IS PART OF THE PERMANENT MEDICAL RECORD
[2025-02-25 11:05] LABS: Glucose, Whole Blood 131 mg/dL (60-115)
[2025-02-25 11:12] VITALS: BP 100/63; PULSE 78; RESP 16; TEMP 36.3; O2SAT 99
--- NOTE | 2025-02-25 11:15 | MHC.CM.PN ---
Addendum entered by Starr Cedeno RN 02/25/25 12:26: NEPHROLOGY CONTACTED CLINIC AND CM HAS CONFIRMED W/[facility] CLINICAL THERMAL TECHNICIAN AT [facility] AND PT WILL BE ABLE TO START SAT 02/28, DC SUMMARY FAXED TO MARISEL AT [phone], ADDITIONAL REQUESTED DOCUMENTS FAXED EARLIER THIS AM. PT DISCHARGING HOME W/NEW [facility] FOR SN/PT AND NEW OUPT HD AT [facility], PT'S [facility] AT BEDSIDE FOR TRANSPORT. Original Note: EMR REVIEWED, PER PT CAN BE MEDICALLY CLEARED FOR DC HOWEVER PT'S NEW OUPT HD [facility]ENTER [facility] 6:40 CHAIR TIME W/ARRIVAL TIME OF 6:10AM FIRST VISIT AND 6:20AM FOR REGULAR SCHED, [facility] UNABLE TO START PT UNTIL NEXT 03/03/24, DISCUSSED W/NEPHRO AND PT CAN DC SAT 3. CM MET W/PT AND AT BEDSIDE TO DISCUSS AND PT IS DECLINING STR, NEITHER [facility] CAN ACCOMMODATE HD AT THIS TIME. BRIDGET REPORTS HE WILL TRANSPORT PT TO HD AND SHE DOES NOT NEED ASSISTANCE W/TRANSPORTATION.
--- NOTE | 2025-02-25 11:16 | HO.PM.IMPN ---
Subjective Subjective Date of Service: 02/25/25 Interval History: Patient seen examined at bedside this morning, patient had PermCath done yesterday, plans were to discharge her today however no bed available for hemodialysis as an outpatient until next week. Review of Systems Review of Systems: Yes all other systems are reviewed and are negative Physical Exam Exam: Exam: General:?Awake, alert, no acute distress. Appears fatigued but comfortable. HEENT:?Normocephalic, atraumatic. Mucous membranes moist. Neck:?Supple, no JVD Cardiovascular:?Regular rate and rhythm. No murmurs, rubs, or gallops. Respiratory:?Clear to auscultation bilaterally. No wheezes, rales, or rhonchi. No increased work of breathing. Abdomen:?Soft, non-tender, non-distended. Bowel sounds present. Extremities:?No peripheral edema. Peripheral pulses diminished bilaterally, right lower extremity with chronic vascular changes, no acute ischemic findings. permcath line in place. Neurologic:?Alert and oriented ?3. No focal deficits. Skin:?Warm and dry. No rash. left dialysis line in place Vital Signs: Vital Signs: Last Vital Signs Temp 97.3 F 02/25/25 11:12 Pulse 78 02/25/25 11:12 Resp 16 02/25/25 11:12 BP 100/63 02/25/25 11:12 Pulse Ox 99 02/25/25 11:12 O2 Del Method Room Air 02/25/25 11:12 O2 Flow Rate 2 02/23/25 09:05 BMI result Body Mass Index 28.2 Objective Data Active Medications Acetaminophen (Acetaminophen 325 Mg Tablet) 650 mg PO Q6H PRN PRN Reason: Pain, Mild 1-3,fever,headache Last Admin: 02/23/25 05:54 Dose: 650 mg Documented By: SELIN Albuterol Sulfate (Albuterol Sulfate 90 Mcg 8 Gm Inhaler) 2 puff INHALE Q6H PRN PRN Reason: Muscle Spasm Dextrose (Dextrose 50 % 25 Gm/50 Ml Syringe) 25 gm IVPUSH Q15M PRN; Protocol PRN Reason: per Hypoglycemia Standing Ord. Epoetin Koko-epbx 3,000 unit/ (Epoetin Koko-epbx 2,000 unit) 5,000 unit SUBCUT MoWeFr@4524 [facility] Last Admin: 02/23/25 23:00 Dose: Not Given Documented By: SELIN Non-Admin Reason: pt refused, education providede Heparin Sodium (Porcine) (Heparin Sodium,Porcine 5,000 Unit/Ml Vial) 5,000 unit SUBCUT Q8H [facility] On Hold: 02/16/25 07:38 Last Admin: 02/16/25 06:21 Dose: Not Given Documented By: RAMÓN Non-Admin Reason: Patient Condition Contraindication Hydromorphone HCl (Hydromorphone Hcl 1 Mg/Ml Syringe) 0.25 mg IVPUSH Q4H PRN; Protocol PRN Reason: Pain, Moderate(Pain Scale 4-6) Insulin Human Lispro (Insulin Lispro 100 Unit/Ml 3 Ml Vial) 0 unit SUBCUT QIDACHS [facility]; Protocol Last Admin: 02/25/25 09:25 Dose: Not Given Documented By: EDWIGE Non-Admin Reason: No Insulin Coverage Omeprazole (Omeprazole 20 Mg Capsule.) 20 mg PO DAILY@0630 [facility] Last Admin: 02/25/25 09:27 Dose: 20 mg Documented By: EDWIGE Ondansetron HCl (Ondansetron Hcl 4 Mg/2 Ml Vial) 4 mg IVPUSH Q8H PRN PRN Reason: Nausea and Vomiting Last Admin: 02/23/25 05:59 Dose: 4 mg Documented By: SELIN Senna (Sennosides 8.6 Mg Tablet) 8.6 mg PO DAILY PRN PRN Reason: Constipation Last Admin: 02/21/25 13:39 Dose: 8.6 mg Documented By: HÉCTOR Sodium Chloride (0.9 % Sodium Chloride Flush 3 Ml Syringe) 3 ml IVFLUSH QSHIFT [facility] Last Admin: 02/25/25 09:27 Dose: 3 ml Documented By: EDWIGE Zolpidem Tartrate (Zolpidem Tartrate 5 Mg Tablet) 5 mg PO BEDTIME PRN PRN Reason: Insomnia Last Admin: 02/24/25 23:23 Dose: 5 mg Documented By: ABHIJEET Labs 02/23/25 06:45 02/23/25 08:01 Labs: Laboratory Results - last 24 hr 02/24/25 02/24/25 02/24/25 12:44 15:44 19:49 POC Glucose 91 113 117 H 02/25/25 02/25/25 09:19 11:02 POC Glucose 120 H 131 H Assessment and Plan (1) Generalized anxiety disorder: Status: Acute (2) Hypertension, essential, benign: Status: Acute (3) Atherosclerotic cardiovascular disease: Status: Acute (4) PAD (peripheral artery disease): Status: Acute (5) Venous insufficiency of both lower extremities: Status: Acute (6) Type 2 diabetes mellitus with hyperglycemia: Status: Acute (7) GERD (gastroesophageal reflux disease): Status: Acute (8) Acute renal failure: Status: Acute (9) Acute hyperkalemia: Status: Acute (10) Metabolic acidosis: Status: Acute (11) Glomerulonephritis: Status: Acute (12) Anemia in CKD (chronic kidney disease): Status: Acute (13) Rheumatoid arthritis: Status: Acute (14) Weakness: Status: Acute Plan 65-year-old woman with rheumatoid arthritis, type 2 diabetes with neuropathy, hypertension, CAD, and PAD (recent RLE angiogram with tibial recanalization), admitted on 02/12/25 with malaise and found to have severe GABRIELLE with profound metabolic acidosis and hyperkalemia requiring ICU care and bicarbonate infusion, now improved with resolution of acidosis and hyperkalemia, downgraded from ICU to medical floor on 02/13/25. Plans on permament dialysis placement on 02/24 Acute Kidney Injury with Severe Metabolic Acidosis and Hyperkalemia (improving) HD dependent s/p PermCath placement 02/24/2025 Presented with profound GABRIELLE complicated by metabolic acidosis and life-threatening hyperkalemia. Etiology suspected to be ATN vs AIN. Imaging negative for obstruction; UA without evidence of infection. Required ICU admission and bicarbonate infusion with subsequent biochemical improvement. Currently making urine and clinically stable on the floor with nephrology following. Renal biopsy was performed 02/17/25 Unfortunately, another sample needs to be obtained Repeat renal biopsy performed 02/23/2025 Plan: Continue close nephrology follow-up Trend BMP daily to monitor renal function and electrolytes Avoid nephrotoxins and IV contrast Maintain euvolemia Monitor urine output resume AC Nephrology reccs greatly appreciated Anemia, suspect of chronic disease Downtrend in hemoglobin during hospitalization, suspected secondary to hemodilution from IV fluid resuscitation. No evidence of active bleeding. Plan: Trend CBC Monitor for signs of bleeding No transfusion indicated at this time Transfuse for Hgb<8mg/dl Type 2 Diabetes Mellitus Diabetes complicated by neuropathy. Oral agents held in the setting of acute renal failure. Plan: Hold metformin Monitor blood glucose levels Resume appropriate outpatient regimen once renal function stabilizes Angioedema (resolved), likely secondary to ACEi Avoid KELLEY inhibitors Ensure lisinopril is discontinued at discharge Incidental Low-Attenuation Pancreatic Lesion CT imaging noted low-attenuation lesion in the pancreas requiring further characterization. Plan: Recommend outpatient CT or MRI with IV contrast once renal function allows Peripheral Artery Disease (s/p recent angiogram and recanalization) On dual antiplatelet therapy prior to admission; antiplatelets currently held during hospitalization. Plan: Continue to hold aspirin and clopidogrel Consider resumption if hemoglobin remains stable and no bleeding concerns [employer] VTE Prophylaxis:?heparin 5000 - HELD Code Status:?Full code - NPO midnight Diet:?renal Total time managing care of this patient today: 45 minutes. Quality Stroke Does the patient have a stroke diagnosis?: No VTE Prior VTE?: No VTE Risk Level:: Medical - moderate - high VTE Device Contraindication: Treatment Not Indicated VTE Drug Contraindication: N/A - Med Ordered
--- NOTE | 2025-02-25 11:24 | PM.PNNEP ---
Subjective Subjective Date of Service: 02/25/25 Interval history: Had HD this AM. Tolerated well. D/W HD RN and Med Attending Physical Exam Vital Signs: Vital Signs: Last Vital Signs Temp 97.3 F 02/25/25 11:12 Pulse 78 02/25/25 11:12 Resp 16 02/25/25 11:12 BP 100/63 02/25/25 11:12 Pulse Ox 99 02/25/25 11:12 O2 Del Method Room Air 02/25/25 11:12 O2 Flow Rate 2 02/23/25 09:05 BMI result Body Mass Index 28.2 Objective Data Labs 02/23/25 06:45 02/23/25 08:01 Labs: Laboratory Results - last 24 hr 02/24/25 02/24/25 02/24/25 12:44 15:44 19:49 POC Glucose 91 113 117 H 02/25/25 02/25/25 09:19 11:02 POC Glucose 120 H 131 H Procedures Date of Service Date of Service: 02/25/25 Assessment & Plan Assessment and plan (1) Acute renal failure: Status: Acute Plan Patient has GABRIELLE of unknown etiology for which she underwent repeat renal biopsy 2 days ago. S/P Permcath placement and had dialysis through the access. Had HD this AM. urine output showing some signs of recovery but still continues to have very poor renal clearance. She has dialysis bed Tues/Ivana/Sat first shift at 6:30AM at [address] [address]; phone number [phone]..Please ask the hospital case briefer Galo to reach out to dialysis center to establish transport and coordinate care prior to D/C Progress Note: Quality Stroke Does the patient have a stroke diagnosis?: No
--- NOTE | 2025-02-25 12:09 | P.DS_ITS ---
DS: Providers Provider Date of admission: 02/12/25 15:04 Date of discharge: 02/25/25 Primary care physician: Michael Vogel MD Consults: 02/13/25 09:08 Consult to Wound Care Routine Consulting Provider: [facility] [place] W[facility] Care Management Reason for consultation: Right Great Toe diabetic ulcer on admission Has provider been notified: No 02/13/25 10:32 Consult to Nephrology Routine Consulting Provider: [facility] [place] [facility] Reason for consultation: Acute kidney injury 02/24/25 17:18 Consult to Case Management Routine Comment: dialysis bed available for [place] DS: Diagnosis Discharge Diagnosis (1) Acute renal failure: Status: Acute DS: Summary Hospital Course Hospital Course: 65-year-old woman with rheumatoid arthritis, type 2 diabetes with neuropathy, hypertension, CAD, and PAD (recent RLE angiogram with tibial recanalization), admitted on 02/12/25 with malaise and found to have severe GABRIELLE with profound metabolic acidosis and hyperkalemia requiring ICU care and bicarbonate infusion, now improved with resolution of acidosis and hyperkalemia, downgraded from ICU to medical floor on 02/13/25. Plans on permament dialysis placement on 02/24 Acute Kidney Injury with Severe Metabolic Acidosis and Hyperkalemia (improving) HD dependent s/p PermCath placement 02/24/2025 Renal biopsy was performed 02/17/25 w/ repeat on 02/23/2025 Plan: Continue close nephrology follow-up Trend BMP daily to monitor renal function and electrolytes Avoid nephrotoxins and IV contrast Maintain euvolemia Monitor urine output Anemia, suspect of chronic disease Monitor for signs of bleeding No transfusion indicated at this time Retracrit per nephro recs Transfuse for Hgb<8mg/dl Type 2 Diabetes Mellitus Diabetes complicated by neuropathy. Oral agents held in the setting of acute renal failure. -Blood sugars prior to discharge in the 100-120s range Hold metformin given dialysis, to adjust per outpatient PCP and nephro Monitor blood glucose levels Resume appropriate outpatient regimen once renal function stabilizes Follow up with PCP Gabapenin on hold given dialysis, to consider giving low dose of 50mg if ablefollow Angioedema (resolved), likely secondary to ACEi Avoid KELLEY inhibitors Ensure lisinopril is discontinued at discharge Incidental Low-Attenuation Pancreatic Lesion CT imaging noted low-attenuation lesion in the pancreas requiring further characterization. Plan: Recommend outpatient CT or MRI with IV contrast once renal function allows Peripheral Artery Disease (s/p recent angiogram and recanalization) On dual antiplatelet therapy prior to admission; antiplatelets currently held during hospitalization. Plan: Continue to hold aspirin and clopidogrel Consider resumption if hemoglobin remains stable and no bleeding concerns Time Attestation Discharge Coordination Time (in mins): 35 minutes Quality: Safe Use of Opioids Does Pt have an Active Cancer Diagnosis on the Problem List?: No Quality: Stroke Does the patient have a stroke diagnosis?: No Physical Exam Exam: Exam: General: Awake, alert, no acute distress. Appears fatigued but comfortable. HEENT: Normocephalic, atraumatic. Mucous membranes moist. Neck: Supple, no JVD Cardiovascular: Regular rate and rhythm. No murmurs, rubs, or gallops. Respiratory: Clear to auscultation bilaterally. No wheezes, rales, or rhonchi. No increased work of breathing. Abdomen: Soft, non-tender, non-distended. Bowel sounds present. Extremities: No peripheral edema. Peripheral pulses diminished bilaterally, right lower extremity with chronic vascular changes, no acute ischemic findings. permcath line in place. Neurologic: Alert and oriented ?3. No focal deficits. Skin: Warm and dry. No rash. left dialysis line in place Vital Signs: Vital Signs: Last Vital Signs Temp 97.3 F 02/25/25 11:12 Pulse 78 02/25/25 11:12 Resp 16 02/25/25 11:12 BP 100/63 02/25/25 11:12 Pulse Ox 99 02/25/25 11:12 O2 Del Method Room Air 02/25/25 11:12 O2 Flow Rate 2 02/23/25 09:05 BMI result Body Mass Index 28.2 DS: Data Data Completed and Pending Completed studies during hospitalization [Text1]: Pending at discharge 02/17/25 08:49 Surgical [PTH] Routine 02/23/25 08:49 Surgical [PTH] Routine Labs on day of discharge: Laboratory Results - last 24 hr 02/24/25 02/24/25 02/24/25 12:44 15:44 19:49 POC Glucose 91 113 117 H 02/25/25 02/25/25 09:19 11:02 POC Glucose 120 H 131 H Discharge Plan Discharge Anticipated Discharge Date/Time: 02/25/25 13:00 Patient Disposition: Home Health Service Discharge Diagnosis: Acute renal failure requiring hemodialysis Anemia Referrals: [facility] [Other] - 1 Week Referral Note: OUT PATIENT DIALYSIS SCHEDULE: //SUN STARTING ON 03/03. ARRIVAL TIME 6:20AM EXCEPT FOR YOUR FIRST VISIT PLEASE ARRIVE AT 6:10AM. Michael Vogel MD [Primary Care Provider, Internal Medicine] - 1 Week Discharge Medications: New Retacrit 2,000 unit/mL Solution 5,000 unit subcut MoWeFr@1645 7 Days Qty: 7.5 0RF Continued (DME) nebulizers [facility] See Rx Instructions .Route Qty: 1 0RF Rx Instructions: As directed (DME) nebulizer accessories Kit See Rx Instructions .Route Qty: 1 0RF Rx Instructions: As directed ondansetron 4 mg tablet,disintegrating 4 mg PO Q8H PRN (Reason: nausea and vomiting) Qty: 30 0RF lisinopril 20 mg tablet 20 mg PO DAILY Qty: 90 3RF (DME) lancets [FreeStyle Lancets] [facility] See Rx Instructions .Route Qty: 100 0RF Rx Instructions: As directed three times per day zolpidem 10 mg tablet 10 mg PO BEDTIME PRN (Reason: insomnia) 30 Days Qty: 30 1RF rosuvastatin [Crestor] 40 mg tablet 40 mg PO DAILY 90 Days Qty: 90 3RF tramadol 50 mg tablet 50 mg PO TID PRN (Reason: pain) Qty: 90 0RF lidocaine 5 % adhesive patch,medicated 1 patch topical DAILY PRN (Reason: Pain) clopidogrel 75 mg tablet 75 mg PO DAILY aspirin 81 mg tablet,delayed release (DR/EC) 81 mg PO DAILY albuterol sulfate [Ventolin HFA] 90 mcg/actuation HFA aerosol inhaler 2 puff inhalation Q6H PRN (Reason: muscle spasm) oxycodone 30 mg tablet 30 mg PO Q12H PRN (Reason: pain) albuterol sulfate 2.5 mg /3 mL (0.083 %) solution for nebulization 2.5 mg inhalation Q4H PRN (Reason: Wheezing) omeprazole 20 mg capsule,delayed release(DR/EC) 20 mg PO DAILY@0630 Discontinued metformin 1,000 mg tablet 1,000 mg PO BID Qty: 180 0RF gabapentin 300 mg capsule 300 mg PO BID Discharge Orders: Discharge Order (Routine); Ordered 02/25/25 Ordered By: Roger Morejon Activity on Discharge: As tolerated Stand Alone Forms: Patient Portal Discharge page Print Language: Divehi Care Plan Goals: continue HD renal diet Health Concerns: Acute renal failure Plan of Treatment: continue hemodialysis, follow up with nephrology follow up with PCP Assessment: 65-year-old woman with rheumatoid arthritis, type 2 diabetes with neuropathy, hypertension, CAD, and PAD (recent RLE angiogram with tibial recanalization), admitted on 02/12/25 with malaise and found to have severe GABRIELLE with profound metabolic acidosis and hyperkalemia requiring ICU care and bicarbonate infusion, now improved with resolution of acidosis and hyperkalemia, downgraded from ICU to medical floor on 02/13/25. Plans on permament dialysis placement on 02/24 Patient Instructions: Potassium Content of Foods List (DC), Dialysis Nutrition Plan (DC), DASH Eating Plan (DC), Hemodialysis for Acute Kidney Failure (DC)
--- NOTE | 2025-02-25 12:11 | P.F2F_ITS ---
Service Date Service Date: 02/25/25 Encounter Date of encounter: 02/25/25 Reasons for Services Signs and symptoms assessed: renal failure on hemodyalsis, kidney function Reason for penitentiary: monitoring of PT/INR, medication management and GI/ assessment Reason for physical therapy: therapeutic exercises and assess need for DME Reason for occupational therapy: therapeutic exercises and assess need for DME Homebound: Leaving the home is medically contraindicated at this time without the asist of a device and/or another person due th the listed conditions above and below. Reason homebound: unsteady gait / fall risk and weakness related to hospital stay Certification: Based on the above findings, I certify that this patient is confined to the home and needs intermittent penitentiary care, physical therapy and/or speech therapy, or continues to need occupational therapy. The patient is under my care, and I have initiated the establishment of the plan of care. The patient will be followed by a physician who will periodically review the plan of care. Time Spent With Patient Time: Total time managing care of this patient today ____ minutes.
--- NOTE | 2025-03-04 08:53 | P.CDIM_ITS ---
PROVIDER RESPONSE TEXT: To clarify, the appropriate diagnosis supported by the clinical indicators: CKD stage 5 QUERY TEXT: PHYSICIAN'S DOCUMENTATION REQUEST Date of Query: 02/23/2025 12:47 PM EST Patient Name: Isela Frausto Admit Date: 02/12/2025 Dear Colby Lozada MD, A review of the medical record indicates additional documentation may be needed. Please review below and update the documentation accordingly. Clinical Indicators: CKD noted BUN 39 creatinine 6.34 eGFR 7 Please clarify which of the following accurately represents the patient's stage of CKD CKD stage 1 CKD stage 2 CKD stage 3a CKD stage 3b CKD stage 4 CKD stage 5 Other (explain) Clinically unable to determine (explain) Thank you, Audelia Lawrence RN Use of terms such as suspected, likely, concern for, or probable (associated with a specific diagnosis that is being evaluated, monitored, or treated as if it exists) are acceptable and can be coded in the inpatient setting, when documented at the time of discharge. Please use your independent medical judgment in providing your response. THIS QUERY IS PART OF THE PERMANENT MEDICAL RECORD
== END 2025-02-25 12:57 | disposition home health service (06) | DRG 674 ==
LOC: HO.ED 12:19 → HO.EDOVER 15:11 → HO.ICU 15:43 → HO.IMC 02-13 15:42
PROVIDERS: Hospitalist; Internal Medicine Critical Care Medicine; Nurse Practitioner Acute Care; Physician Assistant Medical; Radiology Diagnostic Radiology; Registered Nurse Community Health; Admitting Provider Internal Medicine Pulmonary Disease; Emergency Provider Emergency Medicine Emergency Medical Services; PCP Internal Medicine; Visit Provider Student in an Organized Health Care Education/Training Program
PROC: 02HV33Z Insertion of Infusion Device into Superior Vena Cava, Percutaneous Approach (ICD-10-PCS; principal; 2025-02-16 10:30)
PROC: 0TB03ZX Excision of Right Kidney, Percutaneous Approach, Diagnostic (ICD-10-PCS; principal; 2025-02-17 08:00)
DX: N17.0 Acute kidney failure with tubular necrosis (principal); E87.21 Acute metabolic acidosis; I12.0 Hypertensive chronic kidney disease with stage 5 chronic kidney disease or end stage renal disease; E11.40 Type 2 diabetes mellitus with diabetic neuropathy, unspecified; E11.22 Type 2 diabetes mellitus with diabetic chronic kidney disease; D63.1 Anemia in chronic kidney disease; I25.10 Atherosclerotic heart disease of native coronary artery without angina pectoris; E87.5 Hyperkalemia; T78.3XXA Angioneurotic edema, initial encounter; T46.4X5A Adverse effect of angiotensin-converting-enzyme inhibitors, initial encounter; K76.0 Fatty (change of) liver, not elsewhere classified; E11.51 Type 2 diabetes mellitus with diabetic peripheral angiopathy without gangrene; L97.519 Non-pressure chronic ulcer of other part of right foot with unspecified severity; N18.6 End stage renal disease; Z99.2 Dependence on renal dialysis; I70.235 Atherosclerosis of native arteries of right leg with ulceration of other part of foot; K86.9 Disease of pancreas, unspecified; M06.9 Rheumatoid arthritis, unspecified; Z20.822 Contact with and (suspected) exposure to COVID-19; Z87.891 Personal history of nicotine dependence; Z79.02 Long term (current) use of antithrombotics/antiplatelets; Z79.82 Long term (current) use of aspirin; Z79.899 Other long term (current) drug therapy
CPT/HCPCS: 36415; 36556; 36558; 50200; 74176; 77012; 80048; 80053; 80307; 81001; 82010; 82040; 82436; 82570; 82784; 82803; 82947; 83735; 83880; 84100; 84133; 84156; 84300; 85025; 85027; 85610; 86021; 86160; 86334; 86704; 86706; 86850; 86900; 86901; 87340; 87502; 87635; 88300; 88305; 88313; 88346; 88348; 88350; 90999; 93005; 94640; 97110; 97162; 97530; 99152; 99153; 99202; 99285; C1750; C1752; C1769; J0690; J1171; J1644; J2003; J2250; J2270; J2405; J3010; J3475; J7120; P9047

== ENCOUNTER → 2025-02-12 11:24 | Outpatient (BNV) | payer MEDICARE, MEDICAID, SELFPAY | PROVIDERS: Emergency Provider Emergency Medicine Emergency Medical Services; PCP Internal Medicine; Visit Provider Internal Medicine Cardiovascular Disease | DX: R00.0 Tachycardia, unspecified (principal) | CPT/HCPCS: 93010 ==

== ENCOUNTER → 2025-02-12 13:00 | Outpatient (BNV) | payer MEDICARE, MEDICAID, SELFPAY | PROVIDERS: Admitting Provider Internal Medicine Pulmonary Disease; Emergency Provider Emergency Medicine Emergency Medical Services; PCP Internal Medicine; Visit Provider Radiology Diagnostic Radiology | DX: N20.0 Calculus of kidney (principal) | CPT/HCPCS: 74176 ==

== ENCOUNTER 2025-02-12 15:04 | Outpatient (BNV) | payer MEDICARE, MEDICAID, SELFPAY | END 2025-02-16 10:45 | PROVIDERS: Admitting Provider Internal Medicine Pulmonary Disease; Emergency Provider Emergency Medicine Emergency Medical Services; PCP Internal Medicine; Visit Provider Radiology Diagnostic Radiology | DX: N17.0 Acute kidney failure with tubular necrosis (principal) | CPT/HCPCS: 36556; 77001 ==

== ENCOUNTER 2025-02-12 15:04 | Outpatient (BNV) | payer MEDICARE, MEDICAID, SELFPAY | END 2025-02-17 08:29 | PROVIDERS: Admitting Provider Internal Medicine Pulmonary Disease; Emergency Provider Emergency Medicine Emergency Medical Services; PCP Internal Medicine; Visit Provider Radiology Diagnostic Radiology | DX: N17.0 Acute kidney failure with tubular necrosis (principal) | CPT/HCPCS: 50200; 77012 ==

== ENCOUNTER 2025-02-12 15:04 | Outpatient (BNV) | payer MEDICARE, MEDICAID, SELFPAY | END 2025-02-23 08:15 | PROVIDERS: Admitting Provider Internal Medicine Pulmonary Disease; Emergency Provider Emergency Medicine Emergency Medical Services; PCP Internal Medicine; Visit Provider Radiology Diagnostic Radiology | DX: E87.5 Hyperkalemia (principal); N17.9 Acute kidney failure, unspecified | CPT/HCPCS: 50200; 77002; 77012 ==

== ENCOUNTER 2025-02-12 15:04 | Outpatient (BNV) | payer MEDICARE, MEDICAID, SELFPAY | END 2025-02-24 11:30 | PROVIDERS: Admitting Provider Internal Medicine Pulmonary Disease; Emergency Provider Emergency Medicine Emergency Medical Services; PCP Internal Medicine; Visit Provider Radiology Diagnostic Radiology | DX: E87.5 Hyperkalemia (principal); N17.9 Acute kidney failure, unspecified | CPT/HCPCS: 36558; 77001 ==

== ENCOUNTER → 2025-02-12 15:04 | Outpatient (BNV) | payer MEDICARE, MEDICAID, SELFPAY | PROVIDERS: Admitting Provider Internal Medicine Pulmonary Disease; Emergency Provider Emergency Medicine Emergency Medical Services; PCP Internal Medicine; Visit Provider Registered Nurse Community Health | DX: N17.0 Acute kidney failure with tubular necrosis (principal); E87.5 Hyperkalemia | CPT/HCPCS: 90935; 99499 ==

== ENCOUNTER → 2025-02-12 15:04 | Outpatient (BNV) | payer MEDICARE, MEDICAID, SELFPAY | PROVIDERS: Admitting Provider Internal Medicine Pulmonary Disease; Emergency Provider Emergency Medicine Emergency Medical Services; PCP Internal Medicine; Visit Provider Physician Assistant Medical | DX: F41.9 Anxiety disorder, unspecified (principal) | CPT/HCPCS: 99232; 99499 ==

== ENCOUNTER → 2025-02-12 15:04 | Outpatient (BNV) | payer MEDICARE, MEDICAID, SELFPAY | PROVIDERS: Admitting Provider Internal Medicine Pulmonary Disease; Emergency Provider Emergency Medicine Emergency Medical Services; PCP Internal Medicine; Visit Provider Internal Medicine Nephrology | DX: E87.5 Hyperkalemia (principal); N17.0 Acute kidney failure with tubular necrosis; E87.20 Acidosis, unspecified | CPT/HCPCS: 99223 ==

== ENCOUNTER → 2025-02-12 15:04 | Outpatient (BNV) | payer MEDICARE, MEDICAID, SELFPAY | PROVIDERS: Admitting Provider Internal Medicine Pulmonary Disease; Emergency Provider Emergency Medicine Emergency Medical Services; PCP Internal Medicine; Visit Provider Internal Medicine Pulmonary Disease | DX: E11.40 Type 2 diabetes mellitus with diabetic neuropathy, unspecified (principal); N17.9 Acute kidney failure, unspecified; E87.5 Hyperkalemia; E87.20 Acidosis, unspecified; I10 Essential (primary) hypertension; I73.9 Peripheral vascular disease, unspecified | CPT/HCPCS: 99232; 99291 ==